=== PATIENT | male | born 1935 | race African-American/Black ===

== ENCOUNTER 2017-06-18 09:15 | Inpatient (IN) | payer MEDICAID, MEDICARE ==
[~2017-06-18] VITALS: Ht 172.7 cm; Wt 81.2 kg
[2017-06-18] VITALS (26 sets, daily range): BP systolic 50–124; BP diastolic 30–78
[~2017-06-18 09:15] MED LIST: Lidocaine 1% MPF 10mg/ml 5ml ONE
[2017-06-18] MEDS ORDERED: Zemuron 50mg/5ml Inj IV ONE (09:21)
[2017-06-18] MEDS ORDERED: Zosyn 2.25gm inj IV ONE (09:30)
[2017-06-18] MEDS ORDERED: MIRALAX17 G2 ORAL (09:42)
[2017-06-18] MEDS ORDERED: METOPROLOL TART25 MG ORAL (09:42)
[2017-06-18] MEDS ORDERED: NEPHROVITE1 TAB ORAL (09:42)
[2017-06-18] MEDS ORDERED: PRO-STAT RENAL30 ML PO (09:42)
[2017-06-18 09:45] LABS: HEMOGLOBIN 10.2 G/DL (14.2-18.0); MEAN CORPUSCULAR VOLUME 88 FL (80-99); PLATELET COUNT 237 K/UL (150-450); RED BLOOD COUNT 3.84 M/UL (4.70-6.10); RED CELL DISTRIBUTION WIDTH 16.4 % (11.6-14.8); WHITE BLOOD COUNT 9.2 K/UL (4.8-10.8)
[2017-06-18] MEDS ORDERED: Sodium Bicarbonate 50ml Carp IV ONE (09:45)
[2017-06-18] MEDS ORDERED: Sodium Polystyrene Sulfonate Enema RECTAL ONE (09:45)
[2017-06-18] MEDS ORDERED: DOPamine 400mg/250ml 250 ML IV SCH (09:45)
--- NOTE | 2017-06-18 09:52 | Diagnostic Imaging Report ---
Indication: Shortness of breath Technique: XRAY Chest 1v Comparison: 09/22/2008 Findings: Endotracheal tube has its tip approximately 3 cm above the rodrigo. Heart size and mediastinal contours within normal limits. Atherosclerotic calcifications noted in the aortic arch. There is a small left pleural effusion with left basilar atelectasis/consolidation. Vertical densities noted in the right lung likely related to skinfold. There is slight lucency in the right costophrenic sulcus and a small basilar pneumothorax is not entirely excluded. Repeat exam recommended. Impression: Satisfactory endotracheal intubation. Small left pleural effusion with left basilar atelectasis/consolidation. Lucency in the right costophrenic sulcus. Small basilar pneumothorax not entirely excluded. Repeat exam recommended. Discussed with treating ER physician Dr. Benavidez via telephone conversation 06/18/2017, 9:45 AM
--- NOTE | 2017-06-18 09:52 | Emergency Room Report ---
History of Present Illness General Chief Complaint: Altered Level of Consciousness Source: EMS (OXANA JUAN D.O.) Present Illness HPI Patient presents by paramedics from nursing facility patient was found to be hypotensive And in acute respiratory distress Upon arrival the patient is contracted Nonverbal Is in acute respiratory distress with tachypnea and audible rhonchi accessory muscle use with retractions Patient himself is nonverbal History of present illness is significantly limited Call to the nursing facility reveals full CODE STATUS however no obvious deformities in the chart Paramedics were summoned this morning and the patient was found to be hypoxic And hypotensive patient was reported to be due for his dialysis today (OXANA JUAN D.O.) Allergies: Coded Allergies: No Known Allergies (Unverified , 06/18/17) Patient History Limited by: medical condition Past Medical History: see triage record Pertinent Family History: unable to obtain Reviewed Nursing Documentation: PMH: Agreed, PSxH: Agreed (OXANA JUAN D.O.) Nursing Documentation-PMH Hx Diabetes: Yes Hx Dialysis: Yes (OXANA JUAN D.O.) Review of Systems All Other Systems: limited - Other than the ones mentioned in the history of present illness all others are reviewed however they do stay limited due to the patient's mental status (OXANA JUAN D.O.) Physical Exam Vital Signs Date Time Temp Pulse Resp B/P (MAP) Pulse Ox O2 Delivery O2 Flow Rate FiO2 06/18/17 09:11 110 40 62/38 100 Non-Rebreather 06/18/17 09:15 15.0 Sp02 EP Interpretation: reviewed, normal General Appearance: severe distress - Tachypneic, and respiratory distress/ impending failure, retractions Head: normocephalic, atraumatic Eyes: bilateral eye PERRL ENT: other - A dentulous, dry mucosa Neck: supple Respiratory: accessory muscle use, crackles - Diffusely audible, wheezing Cardiovascular #1: no edema, no gallop, tachycardia Gastrointestinal: non tender, soft, no mass, other - Previous surgical scar on the right lower abdomen possible renal transplant Musculoskeletal: other - Patient contracted upper and lower extremity does not follow command Neurologic: other - Significantly decreased GCS patient not verbal, appears to make subtle movements with physical stimuli however has no purposeful not verbal , Skin: other - Dialysis catheter left groin, chronic appearing skin breakdown around the genital region Lymphatic: no adenopathy (OXANA JUAN.Cherelle) Procedures Critical Care Time Critical Care Time 50 minutes for initial critical status, findings concerning for life- threatening pathology, not including any procedural time (OXANA JUAN.Cherelle) Central Line Central Line : Consent: Emergent Central Line Lumen: triple Maximal Sterile Barrier Tech: yes cap, yes mask, yes sterile gown, yes sterile gloves, yes large sterile sheet, yes hand hygiene, yes chlorhexidine prep Central Line Postion: femoral (R) Anesthesia: Lidocaine cc's of anesthesia: 2 Complications: none Central Line Post Position: sutured Attempts: One Patient Tolerated: Well Complications: None (OXANA JUAN.Cherelle) Intubation Intubation : Consent: Emergent Intubation Method: orotracheal Tube Size (cm): 8.0 Medications: Rocuronium Breath Sounds after Intubation: equal Intubation Complications: no complications Progress/Xray Impression: refer to x-ray section Attempts: One Patient Tolerated: Well Complications: None (OXANA JUAN.Cherelle) Medical Decision Making Diagnostic Impression: Primary Impression: Respiratory failure Additional Impressions: Septic shock Renal failure ER Course Patient presents in acute distress Requiring emergent airway intubation Multiple differentials are considered, including but not limited to sepsis, septic shock aspiration pneumonia Patient's blood work reveals normal potassium Patient received boluses of IV hydration Lactic acid is elevated and patient remained hypotensive Requiring pressors Please note that the patient has had repeat evaluation Showing appropriate skin turgor Sepsis reexamination Time:12:30 VS refer to nursing note cvs: RRR respiratory: improved respiration peripheral pulses: 2+radial cap refill:<2 seconds skin exam: warm, dry, not mottled Please note that after initial attempt of reaching the patient's primary physician Dr nina, his information technology coordinator physician did call back, he was requesting a physician who is also out of town and did not have any further input on admitting physician. We did attempt to initially wait to be given any other name however we did not receive a phone call back. Patient's critical ICU admission and in order to prevent any delay in admission patient was admitted to information technology coordinator panelist, Labs Test 06/18/17 09:20 06/18/17 10:55 06/18/17 11:15 White Blood Count 9.2 K/UL (4.8-10.8) Red Blood Count 3.84 M/UL (4.70-6.10) Hemoglobin 10.2 G/DL (14.2-18.0) Hematocrit 34.0 % (42.0-52.0) Mean Corpuscular Volume 88 FL (80-99) Mean Corpuscular Hemoglobin 26.5 PG (27.0-31.0) Mean Corpuscular Hemoglobin Concent 30.0 G/DL (32.0-36.0) Red Cell Distribution Width 16.4 % (11.6-14.8) Platelet Count 237 K/UL (150-450) Mean Platelet Volume 7.4 FL (6.5-10.1) Neutrophils (%) (Auto) % (45.0-75.0) Lymphocytes (%) (Auto) % (20.0-45.0) Monocytes (%) (Auto) % (1.0-10.0) Eosinophils (%) (Auto) % (0.0-3.0) Basophils (%) (Auto) % (0.0-2.0) Differential Total Cells Counted 100 Neutrophils % (Manual) 63 % (45-75) Lymphocytes % (Manual) 9 % (20-45) Monocytes % (Manual) 8 % (1-10) Eosinophils % (Manual) 0 % (0-3) Basophils % (Manual) 0 % (0-2) Band Neutrophils 20 % (0-8) Platelet Estimate Adequate Platelet Morphology Normal Hypochromasia 1+ Anisocytosis 1+ Prothrombin Time 13.1 SEC (9.30-11.50) Prothromb Time International Ratio 1.2 (0.9-1.1) Activated Partial Thromboplast Time 33 SEC (23-33) Sodium Level 137 MMOL/L (136-145) Potassium Level 3.9 MMOL/L (3.5-5.1) Chloride Level 98 MMOL/L (98-107) Carbon Dioxide Level 27 MMOL/L (21-32) Anion Gap 12 mmol/L (5-15) Blood Urea Nitrogen 51 mg/dL (7-18) Creatinine 4.4 MG/DL (0.55-1.30) Estimat Glomerular Filtration Rate mL/min (>60) Glucose Level 137 MG/DL (74-106) Lactic Acid Level 4.20 mmol/L (0.66-2.22) 4.90 mmol/L (0.66-2.22) Calcium Level 8.4 MG/DL (8.5-10.1) Phosphorus Level 3.1 MG/DL (2.5-4.9) Magnesium Level 2.2 MG/DL (1.8-2.4) Total Bilirubin 0.9 MG/DL (0.2-1.0) Aspartate Amino Transf (AST/SGOT) 90 U/L (15-37) Alanine Aminotransferase (ALT/SGPT) 49 U/L (12-78) Alkaline Phosphatase 259 U/L (46-116) Total Creatine Kinase 2327 U/L (26-308) Creatine Kinase MB 42.3 NG/ML (0.0-3.6) Creatine Kinase MB Relative Index 1.8 Troponin I 0.111 ng/mL (0.000-0.056) Pro-B-Type Natriuretic Peptide 4927 pg/mL (0-125) Total Protein 7.9 G/DL (6.4-8.2) Albumin 1.8 G/DL (3.4-5.0) Globulin 6.1 g/dL Albumin/Globulin Ratio 0.3 (1.0-2.7) Lipase 48 U/L (73-393) Arterial Blood pH 7.476 (7.350-7.450) Arterial Blood Partial Pressure CO2 33.8 mmHg (35.0-45.0) Arterial Blood Partial Pressure O2 386.9 mmHg (75.0-100.0) Arterial Blood HCO3 24.4 mmol/L (22.0-26.0) Arterial Blood Oxygen Saturation 99.5 % (92.0-98.0) Arterial Blood Base Excess 1.1 Jonse Test Positive (OXANA JUAN.OEdwige) ER Course Patient already admitted Respiratory failure, intubated, septic shock, on dopamine Tachycardic to 150, hypotensive systolic 80 Phenylephrine drip started (Kobi Meredith M.D.) Rhythm Strip Diag. Results EP Interpretation: yes Rate: 105 Rhythm: no PVC's, no ectopy, other - sinus tach (OXANA JUAN D.O.) Chest X-Ray Diagnostic Results Chest X-Ray Diagnostic Results #1: Chest X-Ray Ordered: Yes # of Views/Limited/Complete: 1 View Indication: Shortness of Breath EP Interpretation: Yes Interpretation: other - ET tube appropriately placed, left-sided effusion, heart size normal, questionable right lower lobe pneumothorax Impression: Other - left lower lobe effusion Electronically Signed by: Oxana Juan DO Chest X-Ray Diagnostic Results #2: Chest X-Ray Ordered: Yes # of Views/Limited/Complete: 1 View Indication: Shortness of Breath EP Interpretation: Yes Interpretation: other - Right lower lobe, appears appropriate does not show obvious pneumothorax ET tube appropriate, heart size normal, Impression: Other - Left lower lobe effusion Electronically Signed by: Oxana Juan DO (OXANA JUAN D.O.) Last Vital Signs Date Time Temp Pulse Resp B/P (MAP) Pulse Ox O2 Delivery O2 Flow Rate FiO2 06/18/17 09:15 103 46 62/38 98 Non-Rebreather 15.0 Status: improved (OXANA JUAN D.O.) Disposition: ADMITTED INPATIENT Condition: Critical OXANA JUAN D.O. Jun 18, 2017 09:52 Kobi Meredith M.D. Jun 18, 2017 18:15
[2017-06-18 09:53] LABS: INR 1.2 (0.9-1.1)
[2017-06-18] MEDS ORDERED: SENNA176 MG/5 M PO (09:57)
[2017-06-18] MEDS ORDERED: ACETAMINOPHEN325 M1 ORAL (09:57)
[2017-06-18] MEDS ORDERED: QUETIAPINE FUMA50 MG ORAL (09:57)
[2017-06-18] MEDS ORDERED: Lidocaine 1% MPF 10mg/ml 5ml IM ONE (10:15)
[2017-06-18 10:18] LABS: ANION GAP 12 mmol/L (5-15); BLOOD UREA NITROGEN 51 mg/dL (7-18); CALCIUM 8.4 MG/DL (8.5-10.1); CARBON DIOXIDE 27 MMOL/L (21-32); CHLORIDE 98 MMOL/L (98-107); CREATININE 4.4 MG/DL (0.55-1.30); POTASSIUM 3.9 MMOL/L (3.5-5.1); SODIUM 137 MMOL/L (136-145)
[2017-06-18 10:29] LABS: ALANINE AMINOTRANSFERASE 49 U/L (12-78); ALBUMIN 1.8 G/DL (3.4-5.0); ALBUMIN/GLOBULIN RATIO 0.3 (1.0-2.7); ALKALINE PHOSPHATASE 259 U/L (46-116); ASPARTATE AMINO TRANSFERASE 90 U/L (15-37); BILIRUBIN,TOTAL 0.9 MG/DL (0.2-1.0); CKMB 42.3 NG/ML (0.0-3.6); CREATINE KINASE 2327 U/L (26-308); PHOSPHORUS 3.1 MG/DL (2.5-4.9)
[2017-06-18] MEDS ORDERED: LORazepam Inj 2mg/ml 1ml IV ONE (10:30)
--- NOTE | 2017-06-18 10:44 | Diagnostic Imaging Report ---
Indication: Dyspnea. Question small basilar pneumothorax. Technique: XRAY Chest 1v Comparison: Earlier the same day. Findings: Endotracheal tube tip above the level the rodrigo. Persistent small left pleural effusion with patchy left basilar atelectasis/consolidation. There is no definite pneumothorax. Multiple nodular densities in the right lower lung likely representing calcified granulomas. A 7.9 mm low density in the right lower lung likely represents a nipple shadow. Repeat exam with nipple markers can be obtained for definitive evaluation. Impression: No definite pneumothorax. Unchanged left pleural effusion and streaky left basilar atelectasis/consolidation. A 7.9 mm round density in the right lower lung likely represents a nipple shadow. Repeat exam with nipple markers can be obtained for definitive evaluation. Multiple calcified granulomas noted in the right lower lung.
[2017-06-18] MEDS ORDERED: Phenylephrine 100 MG in NS 240 ML IV SCH (18:15)
[2017-06-18] MEDS ORDERED: NS 275 ML ONE (18:18)
[2017-06-18] MEDS ORDERED: Tubing IV Cassette IV ONE (18:19)
[2017-06-18] MEDS ORDERED: Phenylephrine 10mg/ml 5ml vial IV ONE (18:19)
[2017-06-18] MEDS: DOPamine 400mg/250ml 250 ML IV SCH (21:34)
[2017-06-18] MEDS: Phenylephrine 50 MG in D5W 245 ML IV SCH (21:35)
[2017-06-18] MEDS: Heparin 5000 units/ml inj SUBQ SCH (21:40)
[2017-06-18] MEDS: Acetaminophen 650 MG SUPP RECTAL PRN (23:14)
[2017-06-18] MEDS: Albuterol/Ipratropium 3ml neb HHN SCH ×2 (23:25→23:27)
[2017-06-19] VITALS (77 sets, daily range): BP systolic 48–150; BP diastolic 25–111
[2017-06-19] MEDS: Phenylephrine 50 MG in D5W 245 ML IV SCH (02:29)
[2017-06-19] MEDS ORDERED: Vancomycin 1250mg/D5W 250ml IVPB ONE (03:00)
[2017-06-19] MEDS ORDERED: Sodium Chloride 500ML 500 ML IV ONE (03:00)
[2017-06-19] MEDS: Albuterol/Ipratropium 3ml neb HHN SCH ×6 (03:00→23:50)
[2017-06-19] MEDS ORDERED: Zosyn 3.375gm inj ONE (03:06)
[2017-06-19] MEDS: Piperacillin/Tazobactam 3.375 GM in D5W 55 ML IVPB SCH ×2 (03:09→09:01)
[2017-06-19] MEDS ORDERED: Phenylephrine 10mg/ml 5ml vial IV ONE (03:27)
[2017-06-19] MEDS: Phenylephrine 100 MG in NS 240 ML IV SCH ×3 (03:31→18:52)
--- NOTE | 2017-06-19 03:45 | History and Physical Report ---
DATE OF ADMISSION: 06/18/2017 REASON FOR ADMISSION: Respiratory failure. HISTORY OF PRESENT ILLNESS: This is an male aged 82, who resides at a [facility] facility. He was transported to the emergency room because of hypotension and respiratory distress. He is nonverbal and was noted to have extensive, severe dyspnea on arrival requiring intubation and initiation of mechanical ventilation. Marginal blood pressure was recorded as well with 60/40. He was given several boluses of fluid, but failed to improve and subsequently pressors have been initiated. PAST MEDICAL HISTORY: End-stage renal disease, type 2 diabetes mellitus, cerebrovascular accident with right hemiparesis. ALLERGIES: None known. SOCIAL HISTORY: Not obtainable. FAMILY HISTORY: Not known. REVIEW OF SYSTEMS: Cannot obtain review of systems at this time. PHYSICAL EXAMINATION: VITAL SIGNS: Presently, blood pressure is 70/30, heart rate 110, respiratory rate 26. HEENT: Temporal wasting. Edentulous. Dry mucous membranes. Orally intubated. NECK: Supple. LUNGS: With coarse breath sounds and rhonchi. CARDIAC: Regular rhythm. Rapid rate. Normal S1, S2 with no appreciated murmur. ABDOMEN: Soft, nontender. EXTREMITIES: With no edema. 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 Dialysis catheter in the left groin. NEUROLOGIC: Right hemiparesis. LABORATORY DATA: Lactic acid 4.2, BUN 51, creatinine 4.4, potassium 3.9. Troponin 0.111. Albumin 1.8. ABG, pH 7.40, pCO2 35, pO2 94. White count 9.2, hemoglobin 10.2. IMPRESSION: 1. Acute respiratory failure. 2. Hypoxia. 3. Healthcare-acquired pneumonia. 4. Dysphagia. 5. 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 6. Acute myocardial ischemia. 7. Shock. 8. Hypovolemia. 9. Sepsis. 10. Type 2 diabetes mellitus. 11. Decubitus. 12. Critical and guarded. PLAN: 1. On pressor support. 2. Hemodialysis without ultrafiltration at this time. 3. Broad-spectrum antibiotics. 4. Ventilator support. 5. Bronchodilators. 6. DVT and stress ulcer prophylaxis. 7. Skin care. 8. Pulmonary and infectious disease consultations. Gurdeep Harvey M.D. DR: Otoniel JOB#: [id number] CC:
[2017-06-19 07:29] LABS: HEMATOCRIT 35.8 % (42.0-52.0); HEMOGLOBIN 10.7 G/DL (14.2-18.0); MEAN CORPUSCULAR VOLUME 91 FL (80-99); PLATELET COUNT 159 K/UL (150-450); RED BLOOD COUNT 3.93 M/UL (4.70-6.10); RED CELL DISTRIBUTION WIDTH 17.2 % (11.6-14.8); WHITE BLOOD COUNT 11.1 K/UL (4.8-10.8)
[2017-06-19 07:57] LABS: ALANINE AMINOTRANSFERASE 78 U/L (12-78); ALBUMIN 1.4 G/DL (3.4-5.0); ALBUMIN/GLOBULIN RATIO 0.2 (1.0-2.7); ALKALINE PHOSPHATASE 210 U/L (46-116); ANION GAP 23 mmol/L (5-15); ASPARTATE AMINO TRANSFERASE 194 U/L (15-37); BILIRUBIN,TOTAL 1.6 MG/DL (0.2-1.0); BLOOD UREA NITROGEN 55 mg/dL (7-18); CALCIUM 7.8 MG/DL (8.5-10.1); CARBON DIOXIDE 14 MMOL/L (21-32); CHLORIDE 101 MMOL/L (98-107); CREATININE 4.7 MG/DL (0.55-1.30); POTASSIUM 4.7 MMOL/L (3.5-5.1); SODIUM 138 MMOL/L (136-145)
[2017-06-19 07:59] LABS: BILIRUBIN,DIRECT 0.5 MG/DL (0.0-0.3)
[2017-06-19] MEDS: Heparin 5000 units/ml inj SUBQ SCH ×2 (08:48→20:59)
--- NOTE | 2017-06-19 10:28 | Diagnostic Imaging Report ---
Indication: Shortness of breath Technique: XRAY Chest 1v. Comparison: 06/18/2017 Findings: The cardiomediastinal silhouette is unchanged. No new infiltrates are identified. Impression: No significant change from prior examination.
--- NOTE | 2017-06-19 12:41 | Consultation ---
Consult Note Assessment/Plan dict resp failure shock renal failure prognosis poor PEG MARTINEZ Jun 19, 2017 12:41
[2017-06-19] MEDS ORDERED: Sodium Bicarbonate 50ml Carp IV ONE (13:10)
[2017-06-19 14:28] LABS: BASOPHILS % (AUTO) 0.4 % (0.0-2.0); EOSINOPHILS % (AUTO) 0.2 % (0.0-3.0); HEMATOCRIT 32.4 % (42.0-52.0); HEMOGLOBIN 9.8 G/DL (14.2-18.0); LYMPHOCYTES % (AUTO) 8.9 % (20.0-45.0); MEAN CORPUSCULAR VOLUME 88 FL (80-99); MONOCYTES % (AUTO) 10.2 % (1.0-10.0); NEUTROPHILS % (AUTO) 80.4 % (45.0-75.0); PLATELET COUNT 152 K/UL (150-450); RED BLOOD COUNT 3.66 M/UL (4.70-6.10); RED CELL DISTRIBUTION WIDTH 17.1 % (11.6-14.8); WHITE BLOOD COUNT 11.4 K/UL (4.8-10.8)
[2017-06-19] MEDS ORDERED: Heparin Sod 1000 units/ml 10ml IV ONE (14:45)
[2017-06-19] MEDS ORDERED: Heparin Sod 1000 units/ml 10ml IV PRN (15:00)
[2017-06-19 15:11] LABS: ANION GAP 24 mmol/L (5-15); BLOOD UREA NITROGEN 62 mg/dL (7-18); CALCIUM 7.6 MG/DL (8.5-10.1); CARBON DIOXIDE 15 MMOL/L (21-32); CHLORIDE 103 MMOL/L (98-107); CREATININE 4.8 MG/DL (0.55-1.30); POTASSIUM 4.7 MMOL/L (3.5-5.1); SODIUM 142 MMOL/L (136-145)
[2017-06-19] MEDS: Zosyn 2.25 gm in D5W 55ml IV SCH ×2 (15:27→23:46)
--- NOTE | 2017-06-19 16:16 | Consultation ---
Consult Note Assessment/Plan ephrology consult dictated # [id number] JEAN-CLAUDE AGUIRRE Jun 19, 2017 16:16
--- NOTE | 2017-06-19 16:30 | Consultation ---
DATE OF CONSULTATION: 06/19/2017 INFECTIOUS DISEASES CONSULTATION CONSULTING PHYSICIAN: Cliff Chaney M.D. ATTENDING/REFERRING PHYSICIAN: Gurdeep Harvey M.D. REASON FOR CONSULTATION: Septic shock. HISTORY OF PRESENTING ILLNESS: This is an 82-year-old gentleman who was transferred from a senior care facility with hypotension and respiratory distress. He was intubated and he has been admitted to the ICU. An infectious diseases consultation has been obtained for antibiotics. PAST MEDICAL HISTORY: 1. History of diabetes. 2. Renal failure. 3. History of CVA with right hemiparesis. SOCIAL HISTORY: Unknown. FAMILY HISTORY: Unknown. REVIEW OF SYSTEMS: Unable to obtain currently. MEDICATIONS: As an inpatient, the patient is on chlorhexidine gluconate, Prevacid, phenylephrine, IV vancomycin, Zosyn, albuterol, subcutaneous heparin, Tylenol, dopamine. ALLERGIES: No known drug allergies. PHYSICAL EXAMINATION: VITAL SIGNS: Temperature of 97.4, T-max of 99.6, pulse of 97, respiratory rate 26, blood pressure 107/95, O2 saturation of 100%. HEENT: Pupils equally reactive to light and accommodation. Mouth appears clean without thrush. The patient is intubated. NECK: Supple. No adenopathy. No JVD. CARDIOVASCULAR: Regular rate and rhythm. No murmurs. LUNGS: Clear to auscultation bilaterally. No crackles. No wheezes. ABDOMEN: Soft, nontender. No organomegaly. EXTREMITIES: No cyanosis, no clubbing, no edema. LABORATORY DATA: White count of 11.1, hemoglobin 10.7, hematocrit 35.8, MCV 91, platelet count of 159,000 with neutrophils of 58%. Sodium 138, potassium 4.7, chloride 101, bicarbonate 14, BUN 55, creatinine 4.7, glucose 93, calcium 7.8. Total bilirubin 1.60, direct bilirubin 0.5, AST 194, ALT 78, alkaline phosphatase 210. Troponin 0.09. Total protein 7.2, albumin 1.4. Lipase of 48. Sputum cultures are pending. Wound cultures are pending. Nasal swab was negative for influenza A and B. Chest x-ray showing no new infiltrate. On 06/18/2017, chest x-ray showed left-sided pleural effusion with left base atelectasis or consolidation. ASSESSMENT: 1. This is an 82-year-old gentleman with history of renal failure and diabetes, who comes in with hypotension and was found to have pneumonia. 2. Respiratory failure. 3. Diabetes. 4. Renal failure. 5. Cerebrovascular accident. PLAN: 1. Continue vancomycin and Zosyn. 2. We will follow up cultures. 3. We will order sputum for Gram stain and culture. 4. We will order blood cultures. 5. We will follow up cultures and adjust antibiotics accordingly. I would like to thank, Dr. Harvey, for this consultation. Cliff Chaney M.D. DR: Lawrence JOB#: [id number] CC: Gurdeep Harvey M.D.
[2017-06-19] MEDS: NovoLOG Insulin Flexpen SUBQ SCH ×2 (18:00→23:44)
[2017-06-19] MEDS: Aspirin Baby 81mg NG SCH (18:51)
--- NOTE | 2017-06-19 19:16 | Cardiology Report ---
APPROVED REPORT EKG Measurement Heart [id number] Sinus tachycardia Possible Left atrial enlargement Left axis deviation Right bundle branch block Possible Lateral infarct, age undetermined Inferior infarct, age undetermined Abnormal ECG
--- NOTE | 2017-06-19 20:15 | Consultation ---
DATE OF CONSULTATION: 06/19/2017 PULMONARY CONSULTATION CONSULTING PHYSICIAN: Howie Crowder M.D. HISTORY OF PRESENT ILLNESS: The patient is an 82-year-old man, who comes to the hospital emergency department by paramedics from a nursing facility. He was in respiratory distress, was hypotensive, and the paramedics were called. In the emergency department, he did not respond to fluids and intubation was required for respiratory failure. He was transferred to intensive care unit. I was called to see him in consultation. PAST MEDICAL HISTORY: End-stage renal disease, diabetes, and stroke with right hemiparesis. He cannot provide any history due to being unresponsive. He is on dialysis via a left tunneled dialysis catheter. He eat by mouth feeding tube. MEDICATIONS: Reviewed. He is currently on vasopressors for hypotension and on broad-spectrum antibiotics. ALLERGIES: None. REVIEW OF SYSTEMS: Cannot be obtained. PHYSICAL EXAMINATION: GENERAL: The patient is unresponsive. VITAL SIGNS: Blood pressure 79/38, heart rate 110, in sinus tachycardia, respirations are 26 on ventilator support. He is in respiratory distress. Temperature was 102 last night. HEENT: The head shows temporal muscle wasting. He has an orotracheal tube in place. CHEST: Few rhonchi. CARDIAC: Rhythm is regular. ABDOMEN: Soft and nontender. EXTREMITIES: No edema. SKIN: There is a right subclavian intravenous catheter and left subclavian dialysis catheter. LABORATORY AND DIAGNOSTIC DATA: Laboratory studies showed lactic acidosis, renal failure, and anemia. Chest x-ray shows no acute pneumonia. IMPRESSIONS: 1. Respiratory failure. 2. Sepsis with shock. 3. Possible dialysis catheter sepsis; no evidence of pneumonia, urinalysis is pending. 4. Stroke with dementia and right hemiparesis. 5. Diabetes. PLAN: The patient will continue on vasopressors. We will add Levophed as he remains hypotensive. Ventilator support will be continued as well as antibiotics. His prognosis is guarded. Howie Crowder M.D. DR: Sandra JOB#: [id number] CC: Lili Mccarty M.D. ; FAX#: [phone]
[2017-06-19] MEDS: DOPamine 400mg/250ml 250 ML IV SCH (20:45)
[2017-06-19] MEDS: Dyna-Hex 2% Top Sol 2oz TOPIC SCH (20:58)
--- NOTE | 2017-06-19 21:00 | Progress Note ---
DATE: 06/19/2017 CARDIOLOGY PROGRESS NOTE SUBJECTIVE: The patient's condition remains critical. He is in the intensive care unit. He requires double pressors at maximal doses to maintain perfusion pressures. Blood cultures were positive / for Gram-positive cocci. OBJECTIVE: VITAL SIGNS: Blood pressure 98/60, heart rate 96, respiratory rate 20, and afebrile. LUNGS: Bilateral breath sounds. Scattered rhonchi. HEART: Regular rhythm and rate. Normal S1, S2. ABDOMEN: Soft. EXTREMITIES: No edema. Wound noted. LABORATORY AND DIAGNOSTIC DATA: Chest x-ray revealed no acute process. White count 11.4, hemoglobin 9.8. Potassium . BUN 52, creatinine 4.8. Troponin 0.093. IMPRESSION: 1. Gram-positive cocci bacteremia. 2. Sepsis with shock. 3. End-stage renal disease, on hemodialysis. 4. Acute myocardial ischemia. 5. Severe protein-calorie malnutrition. 6. Lactic acidosis. 7. Respiratory failure. 8. Probable aspiration pneumonia. 9. Hypoxia. 10. Hypovolemia. 11. Type 2 diabetes. 12. Remains critical and guarded with poor prognosis. PLAN: 1. Continue pressors, taper as able. 2. Hemodialysis without ultrafiltration. 3. Antibiotics per Infectious Disease transportation consultant. 4. Await final cultures. 5. Continue ventilator support, not presently weanable. 6. Skin care. 7. DVT prophylaxis. 8. Antiplatelet therapy with aspirin. Gurdeep Harvey M.D. DR: Britton JOB#: [id number] CC:
--- NOTE | 2017-06-19 22:15 | Consultation ---
DATE OF CONSULTATION: 06/19/2017 NEPHROLOGY CONSULTATION CONSULTING PHYSICIAN: Boaz Perez M.D. REFERRING PHYSICIAN: Gurdeep Harvey M.D. REASON FOR CONSULTATION: The patient with end-stage renal disease, has presented with some shortness of breath and respiratory failure. HISTORY OF PRESENT ILLNESS: This is a very pleasant 82-year-old male, resident of a [facility] who was transported to the emergency room of [facility] because of hypotension and some respiratory distress. He and has had previous stroke, had to be intubated and has been on the ventilator. Blood pressure was very low in the range of 60/40. Chest x-ray has shown evidence of possible pneumonia and I have been asked to see him for hemodialysis. He is intubated at this point in time. He is not able to give me a very fruitful history. He has been started on intravenous antibiotics. He was also on pressor with phenylephrine, which has been discontinued now. PAST MEDICAL HISTORY: Significant for end-stage renal disease, type 2 diabetes mellitus, and cerebrovascular accident with right-sided hemiparesis. ALLERGIES: Not known. MEDICATIONS: His current medications include Zosyn 2.25 g IV q.8 h. He was given boluses of IV fluid. He was on dopamine, phenylephrine, and norepinephrine, which he has discontinued now. He is also on heparin 5000 units subcutaneous q.12 h., DuoNeb nebulizer q.6 h., insulin sliding scale, Prevacid 30 mg per G-tube daily, and vancomycin per pharmacy dosing. SOCIAL HISTORY: Unobtainable. He is a resident of a [facility] at this point. REVIEW OF SYSTEMS: Impossible. He is not able to give me much history. PHYSICAL EXAMINATION: GENERAL: This is a cachectic-looking gentleman, lying down in bed of the intensive care unit. VITAL SIGNS: Blood pressure 115/55, pulse of 105, respirations 30, and temperature 97.4. HEENT: Head is atraumatic. Eyes, pupils reactive to light. No evidence of papilledema. He has been intubated. ET tube in place. NECK: Supple. Jugular venous distention is low normal. No cervical adenopathy. No thyromegaly. HEART: Regular rhythm. No gallop. LUNGS: Clear to auscultation. ABDOMEN: Supple. Bowel sounds positive. No hepatosplenomegaly. EXTREMITIES: Lower extremity shows no cyanosis or clubbing. No pedal edema. NEUROLOGICAL: Cranial nerves are difficult to assess. He is lethargic right now on the ventilator. LABORATORY DATA: Showing sodium 142, potassium 4.7, chloride 103, carbon dioxide 16, BUN 62, creatinine 4.8, and glucose 71. Calcium 7.6. Troponin was 0.093. INR is 1.2. WBCs 11.4, hemoglobin is 9.8, hematocrit 32.4, and platelets 152. IMPRESSION: 1. Septic shock, which seems to be improving. 2. Probable underlying pneumonia. 3. End-stage renal disease, on hemodialysis. 4. Status post respiratory failure, now on the ventilator. 5. No signs of fluid overload at this point. PLAN: We will arrange for hemodialysis tomorrow. I agree with the IV antibiotics at this point and we need to work on weaning him off of the ventilator. Boaz Perez M.D. DR: VERO JOB#: [id number] CC:
[2017-06-20] VITALS (71 sets, daily range): BP systolic 60–129; BP diastolic 35–68
[2017-06-20] MEDS: Albuterol/Ipratropium 3ml neb HHN SCH ×6 (03:40→23:51)
[2017-06-20] MEDS: Phenylephrine 100 MG in NS 240 ML IV SCH ×2 (03:43→17:32)
[2017-06-20 05:49] LABS: HEMATOCRIT 30.2 % (42.0-52.0); HEMOGLOBIN 9.4 G/DL (14.2-18.0); MEAN CORPUSCULAR VOLUME 88 FL (80-99); PLATELET COUNT 132 K/UL (150-450); RED BLOOD COUNT 3.44 M/UL (4.70-6.10); RED CELL DISTRIBUTION WIDTH 16.5 % (11.6-14.8); WHITE BLOOD COUNT 8.3 K/UL (4.8-10.8)
[2017-06-20] MEDS: NovoLOG Insulin Flexpen SUBQ SCH ×4 (06:08→23:58)
[2017-06-20 06:30] LABS: ALANINE AMINOTRANSFERASE 167 U/L (12-78); ALBUMIN 1.5 G/DL (3.4-5.0); ALBUMIN/GLOBULIN RATIO 0.3 (1.0-2.7); ALKALINE PHOSPHATASE 169 U/L (46-116); ANION GAP 16 mmol/L (5-15); ASPARTATE AMINO TRANSFERASE 342 U/L (15-37); BILIRUBIN,TOTAL 1.9 MG/DL (0.2-1.0); BLOOD UREA NITROGEN 67 mg/dL (7-18); CALCIUM 7.6 MG/DL (8.5-10.1); CARBON DIOXIDE 22 MMOL/L (21-32); CHLORIDE 101 MMOL/L (98-107); POTASSIUM 3.9 MMOL/L (3.5-5.1); SODIUM 139 MMOL/L (136-145)
[2017-06-20 06:42] LABS: BILIRUBIN,DIRECT 1.4 MG/DL (0.0-0.3)
--- NOTE | 2017-06-20 07:32 | Cardiology Report ---
APPROVED REPORT EXAM: Two-dimensional and M-mode echocardiogram with Doppler and color Doppler. INDICATION Ejection Fraction M-Mode DIMENSIONS IVSd1.1 (0.7-1.1cm)Left Atrium (MM)2.8 (1.6-4.0cm) LVDd4.8 (3.5-5.6cm)Aortic Root2.9 (2.0-3.7cm) PWd0.9 (0.7-1.1cm)Aortic Cusp Exc.1.5 (1.5-2.0cm) LVDs3.9 (2.5-4.0cm) PWs1.0 cm Technically limited and difficult study due to poor acoustical windows. Patient on vent. Normal left ventricular chamber size. Global left ventricular hypokinesis. Basal and mid anterior septal hypokinetic. Left ventricular ejection fraction estimated to be 45-50% to extend visualized. No evidence of left ventricular hypertrophy. No evidence of pericardial or pleural effusion. Focal aortic valve sclerosis with adequate cusp excursion. Thickened mitral valve leaflets with normal excursion. Mild mitral annulus and aortic root calcification. Pulmonic valve is well visualized. Normal tricuspid valve structure. IVC is normal in size and collapsible with respiration. A color flow and spectral Doppler study was performed and revealed: Mild tricuspid regurgitation. Tricuspid systolic velocities suggests peak right ventricular systolic pressure of 24 mmHg
--- NOTE | 2017-06-20 07:53 | Nephrology Progress Note ---
Assessment/Plan Problem List: (1) Healthcare-associated pneumonia (2) Malnutrition of moderate degree (3) End-stage renal disease (4) Respiratory failure (5) Septic shock Plan hd via cath, meds reviewed for eskd Subjective ROS Limited/Unobtainable: Yes Objective Objective Last 24 Hour Vital Signs Date Time Temp Pulse Resp B/P (MAP) Pulse Ox O2 Delivery O2 Flow Rate FiO2 06/20/17 07:30 90 19 108/68 100 Mechanical Ventilator 60 06/20/17 07:00 104/54 06/20/17 07:00 87 20 102/56 100 Mechanical Ventilator 60 06/20/17 06:45 87 20 104/54 100 Mechanical Ventilator 60 06/20/17 06:44 109/57 06/20/17 06:30 87 20 109/57 100 Mechanical Ventilator 60 06/20/17 06:15 88 20 127/62 100 Mechanical Ventilator 60 06/20/17 06:00 91 20 94/68 100 Mechanical Ventilator 60 06/20/17 06:00 94/68 06/20/17 05:45 91 20 94/68 100 Mechanical Ventilator 60 06/20/17 05:38 101 20 60 06/20/17 05:30 97 20 82/46 100 Mechanical Ventilator 60 06/20/17 05:15 102 20 76/49 100 Mechanical Ventilator 60 06/20/17 05:00 92 20 102/60 100 Mechanical Ventilator 60 06/20/17 05:00 85/46 06/20/17 04:45 92 20 101/58 100 Mechanical Ventilator 60 06/20/17 04:30 92 20 116/57 100 Mechanical Ventilator 60 06/20/17 04:15 92 20 92/61 100 Mechanical Ventilator 60 06/20/17 04:00 96 06/20/17 04:00 60 06/20/17 04:00 97/49 06/20/17 04:00 99.1 92 20 97/58 100 Mechanical Ventilator 60 06/20/17 03:50 101 21 96 Mechanical Ventilator 60 06/20/17 03:45 94 20 67/42 100 Mechanical Ventilator 60 06/20/17 03:43 95 86/54 06/20/17 03:40 94 29 99 Mechanical Ventilator 60 06/20/17 03:40 93 25 60 06/20/17 03:30 94 20 67/42 100 Mechanical Ventilator 60 06/20/17 03:15 81 20 126/61 100 Mechanical Ventilator 60 06/20/17 03:00 95 20 126/61 100 Mechanical Ventilator 60 06/20/17 03:00 96/46 06/20/17 02:45 96 20 94/58 100 Mechanical Ventilator 60 06/20/17 02:30 96 20 94/58 100 Mechanical Ventilator 60 06/20/17 02:15 98 20 91/57 100 Mechanical Ventilator 60 06/20/17 02:00 99 20 96/59 100 Mechanical Ventilator 60 06/20/17 02:00 96/59 06/20/17 01:45 101 20 92/63 100 Mechanical Ventilator 60 06/20/17 01:38 94 22 60 06/20/17 01:30 100 20 91/55 100 Mechanical Ventilator 60 06/20/17 01:15 99 20 88/52 100 Mechanical Ventilator 60 06/20/17 01:10 82/45 06/20/17 01:00 82/45 06/20/17 01:00 96 20 93/57 100 Mechanical Ventilator 60 06/20/17 00:45 95 20 82/48 100 Mechanical Ventilator 60 06/20/17 00:30 99 20 86/54 100 Mechanical Ventilator 60 06/20/17 00:15 100 20 86/54 100 Mechanical Ventilator 60 06/20/17 00:00 60 06/20/17 00:00 98.7 106 20 84/56 100 Mechanical Ventilator 60 06/20/17 00:00 93 06/20/17 00:00 87/44 06/20/17 00:00 92 20 96 Mechanical Ventilator 60 06/19/17 23:51 94 20 100 Mechanical Ventilator 60 06/19/17 23:50 94 20 60 06/19/17 23:45 107 20 73/54 100 Mechanical Ventilator 60 06/19/17 23:30 91 20 110/41 100 Mechanical Ventilator 60 06/19/17 23:15 92 20 83/41 100 Mechanical Ventilator 60 06/19/17 23:00 92 20 89/48 100 Mechanical Ventilator 60 06/19/17 23:00 87/40 06/19/17 22:45 92 20 84/47 100 Mechanical Ventilator 60 06/19/17 22:30 92 20 83/54 100 Mechanical Ventilator 60 06/19/17 22:15 91 20 86/47 100 Mechanical Ventilator 60 06/19/17 22:00 104/56 06/19/17 22:00 90 20 87/48 100 Mechanical Ventilator 60 06/19/17 21:45 90 20 93/56 100 Mechanical Ventilator 60 06/19/17 21:30 89 20 91/39 100 Mechanical Ventilator 60 06/19/17 21:15 89 20 70/52 100 Mechanical Ventilator 60 06/19/17 21:02 99 20 96 Mechanical Ventilator 60 06/19/17 21:00 82/46 06/19/17 21:00 88 20 82/46 100 Mechanical Ventilator 60 06/19/17 20:52 87 27 94 Mechanical Ventilator 60 06/19/17 20:51 86 20 60 06/19/17 20:45 88 20 82/46 100 Mechanical Ventilator 60 06/19/17 20:45 83/48 06/19/17 20:30 90 22 83/50 100 Mechanical Ventilator 60 06/19/17 20:29 83/48 06/19/17 20:15 91 23 81/50 100 Mechanical Ventilator 60 06/19/17 20:00 99.1 94 22 83/48 100 Mechanical Ventilator 60 06/19/17 20:00 60 06/19/17 20:00 86 06/19/17 19:45 91 23 99/53 100 Mechanical Ventilator 60 06/19/17 19:30 93 23 98/62 100 Mechanical Ventilator 60 06/19/17 19:15 90 28 121/59 100 Mechanical Ventilator 60 06/19/17 19:00 99.3 91 30 112/65 100 Mechanical Ventilator 60 06/19/17 19:00 112/65 06/19/17 18:52 93 88/54 06/19/17 18:45 90 28 88/54 100 Mechanical Ventilator 60 06/19/17 18:30 100 28 100/57 100 Mechanical Ventilator 60 06/19/17 18:00 96 20 98/60 100 Mechanical Ventilator 60 06/19/17 18:00 98/60 06/19/17 17:45 95 20 98/60 100 Mechanical Ventilator 60 06/19/17 17:30 98.7 97 20 118/61 100 Mechanical Ventilator 60 06/19/17 17:09 94 20 60 06/19/17 17:00 96 20 92/53 100 Mechanical Ventilator 60 06/19/17 17:00 92/53 06/19/17 17:00 98 20 104/56 100 Mechanical Ventilator 60 06/19/17 16:45 97 20 100/54 100 Mechanical Ventilator 60 06/19/17 16:30 98 20 104/56 100 Mechanical Ventilator 60 06/19/17 16:15 98 20 104/56 100 Mechanical Ventilator 60 06/19/17 16:00 99.3 99 20 112/66 100 Mechanical Ventilator 60 06/19/17 16:00 95 06/19/17 16:00 104/56 06/19/17 16:00 60 06/19/17 16:00 93 20 105/53 100 Mechanical Ventilator 60 06/19/17 15:30 94 30 150/74 100 Mechanical Ventilator 60 06/19/17 15:30 90 23 96 Mechanical Ventilator 60 06/19/17 15:30 91 23 65 06/19/17 15:28 69/48 06/19/17 15:20 79 27 94 Mechanical Ventilator 60 06/19/17 15:00 100 30 74/48 100 Mechanical Ventilator 60 06/19/17 14:30 101 30 66/44 100 Mechanical Ventilator 60 06/19/17 14:00 105 30 115/55 100 Mechanical Ventilator 60 06/19/17 13:30 101 32 75/57 100 Mechanical Ventilator 60 06/19/17 13:00 97 30 85/54 100 Mechanical Ventilator 65 06/19/17 12:51 102 27 65 06/19/17 12:30 102 25 77/54 100 Mechanical Ventilator 65 06/19/17 12:00 100 06/19/17 12:00 97.4 97 26 107/95 100 Mechanical Ventilator 65 06/19/17 12:00 65 06/19/17 11:30 98 25 72/50 100 Mechanical Ventilator 65 06/19/17 11:00 101 26 71/43 99 Mechanical Ventilator 65 06/19/17 11:00 102 30 65 06/19/17 11:00 100 30 100 Mechanical Ventilator 65 06/19/17 10:50 102 30 98 Mechanical Ventilator 65 06/19/17 10:30 102 29 74/36 99 Mechanical Ventilator 65 06/19/17 10:27 103 77/55 06/19/17 10:00 103 28 77/55 98 Mechanical Ventilator 65 06/19/17 09:30 99.1 104 30 76/48 100 Mechanical Ventilator 65 06/19/17 09:07 106 30 65 06/19/17 09:00 99.3 105 28 71/55 100 Mechanical Ventilator 65 06/19/17 08:30 104 28 62/44 100 Mechanical Ventilator 65 06/19/17 08:00 99.6 106 29 62/42 100 Mechanical Ventilator 65 06/19/17 08:00 106 06/19/17 08:00 65 Intake and Output 06/19/17 06/20/17 19:00 07:00 Intake Total 835.50 ml 998.5 ml Output Total 0 ml 0 ml Balance 835.50 ml 998.5 ml Intake Free Water 30 ml IV Total 725.50 ml 998.5 ml Other 80 ml Output Urine Total 0 ml 0 ml # Bowel Movements 2 1 Laboratory Tests 06/19/17 13:25: Lactic Acid Level 7.30H 06/19/17 13:35: White Blood Count 11.4H, Red Blood Count 3.66L, Hemoglobin 9.8L, Hematocrit 32.4L, Mean Corpuscular Volume 88, Mean Corpuscular Hemoglobin 26.8L, Mean Corpuscular Hemoglobin Concent 30.2L, Red Cell Distribution Width 17.1H, Platelet Count 152, Mean Platelet Volume 7.1, Neutrophils (%) (Auto) 80.4H, Lymphocytes (%) (Auto) 8.9L, Monocytes (%) (Auto) 10.2H, Eosinophils (%) (Auto) 0.2, Basophils (%) (Auto) 0.4, Sodium Level 142, Potassium Level 4.7, Chloride Level 103, Carbon Dioxide Level 15L, Anion Gap 24H, Blood Urea Nitrogen 62H, Creatinine 4.8H, Estimat Glomerular Filtration Rate , Glucose Level 71L, Calcium Level 7.6L 06/20/17 05:30: Lactic Acid Level 2.70H, White Blood Count 8.3, Red Blood Count 3.44L, Hemoglobin 9.4L, Hematocrit 30.2L, Mean Corpuscular Volume 88, Mean Corpuscular Hemoglobin 27.4, Mean Corpuscular Hemoglobin Concent 31.3L, Red Cell Distribution Width 16.5H, Platelet Count 132L, Mean Platelet Volume 6.1L, Neutrophils (%) (Auto) , Lymphocytes (%) (Auto) , Monocytes (%) (Auto) , Eosinophils (%) (Auto) , Basophils (%) (Auto) , Sodium Level 139, Potassium Level 3.9, Chloride Level 101, Carbon Dioxide Level 22, Anion Gap 16H, Blood Urea Nitrogen 67H, Creatinine 5.0H, Estimat Glomerular Filtration Rate , Glucose Level 142H, Calcium Level 7.6L, Neutrophils % (Manual) [Pending], Lymphocytes % (Manual) [Pending], Platelet Estimate [Pending], Platelet Morphology [Pending], Total Bilirubin 1.9H, Direct Bilirubin 1.4H, Aspartate Amino Transf (AST/SGOT) 342H, Alanine Aminotransferase (ALT/SGPT) 167H, Alkaline Phosphatase 169H, Troponin I 0.803H, Total Protein 6.8, Albumin 1.5L, Globulin 5.3, Albumin/Globulin Ratio 0.3L Height (Feet): 5 Height (Inches): 10.00 Weight (Pounds): 147 General Appearance: alert EENT: normal ENT inspection Neck: normal alignment Cardiovascular: regular rhythm Respiratory/Chest: rhonchi - bilaterally, other - vent Abdomen: non tender, soft Extremities: trace edema LEONORA HUI Jun 20, 2017 07:53
[2017-06-20] MEDS: Zosyn 2.25 gm in D5W 55ml IV SCH ×3 (08:07→23:55)
[2017-06-20] MEDS: Aspirin Baby 81mg NG SCH (08:07)
[2017-06-20] MEDS: Heparin 5000 units/ml inj SUBQ SCH ×2 (08:08→20:43)
[2017-06-20] MEDS ORDERED: Cathflo Alteplase 2mg Inj INJ STA (09:29)
--- NOTE | 2017-06-20 12:26 | Infectious Diseases Prog Note ---
Assessment/Plan Assessment/Plan antibiotics : vancomycin iv, zosyn A 1. gram positive sepsis 2. septic shock 3. respiratory failure 4. renal failure P 1. continue vancomycin iv, zosyn 2. will follow up cultures Subjective ROS Limited/Unobtainable: Yes Allergies: Coded Allergies: No Known Allergies (Unverified , 06/18/17) Objective Vital Signs Last 24 Hour Vital Signs Date Time Temp Pulse Resp B/P (MAP) Pulse Ox O2 Delivery O2 Flow Rate FiO2 06/20/17 12:00 60 06/20/17 12:00 98.2 89 19 120/60 100 Mechanical Ventilator 60 06/20/17 11:43 107/58 06/20/17 11:37 93 20 100 Mechanical Ventilator 60 06/20/17 11:30 91 20 117/58 100 Mechanical Ventilator 60 06/20/17 11:28 89 20 60 06/20/17 11:27 89 20 100 Mechanical Ventilator 60 06/20/17 11:00 89 2 109/58 100 Mechanical Ventilator 60 06/20/17 10:30 90 2 105/52 100 Mechanical Ventilator 60 06/20/17 10:00 109/52 06/20/17 10:00 90 19 109/52 100 Mechanical Ventilator 60 06/20/17 09:30 90 20 103/56 100 Mechanical Ventilator 60 06/20/17 09:00 90/70 06/20/17 09:00 87 20 106/57 100 Mechanical Ventilator 60 06/20/17 08:58 89 20 60 06/20/17 08:42 84 21 100 Mechanical Ventilator 60 06/20/17 08:34 86 20 100 Mechanical Ventilator 60 06/20/17 08:30 90 19 107/59 100 Mechanical Ventilator 60 06/20/17 08:00 98.6 88 19 79/47 100 Mechanical Ventilator 60 06/20/17 08:00 79/46 06/20/17 08:00 60 06/20/17 08:00 86 06/20/17 07:30 90 19 108/68 100 Mechanical Ventilator 60 06/20/17 07:00 104/54 06/20/17 07:00 87 20 102/56 100 Mechanical Ventilator 60 06/20/17 06:47 86 20 60 06/20/17 06:45 87 20 104/54 100 Mechanical Ventilator 60 06/20/17 06:44 109/57 06/20/17 06:30 87 20 109/57 100 Mechanical Ventilator 60 06/20/17 06:15 88 20 127/62 100 Mechanical Ventilator 60 06/20/17 06:00 91 20 94/68 100 Mechanical Ventilator 60 06/20/17 06:00 94/68 06/20/17 05:45 91 20 94/68 100 Mechanical Ventilator 60 06/20/17 05:38 101 20 60 06/20/17 05:30 97 20 82/46 100 Mechanical Ventilator 60 06/20/17 05:15 102 20 76/49 100 Mechanical Ventilator 60 06/20/17 05:00 92 20 102/60 100 Mechanical Ventilator 60 06/20/17 05:00 85/46 06/20/17 04:45 92 20 101/58 100 Mechanical Ventilator 60 06/20/17 04:30 92 20 116/57 100 Mechanical Ventilator 60 06/20/17 04:15 92 20 92/61 100 Mechanical Ventilator 60 06/20/17 04:00 96 06/20/17 04:00 60 06/20/17 04:00 97/49 06/20/17 04:00 99.1 92 20 97/58 100 Mechanical Ventilator 60 06/20/17 03:50 101 21 96 Mechanical Ventilator 60 06/20/17 03:45 94 20 67/42 100 Mechanical Ventilator 60 06/20/17 03:43 95 86/54 06/20/17 03:40 94 29 99 Mechanical Ventilator 60 06/20/17 03:40 93 25 60 06/20/17 03:30 94 20 67/42 100 Mechanical Ventilator 60 06/20/17 03:15 81 20 126/61 100 Mechanical Ventilator 60 06/20/17 03:00 95 20 126/61 100 Mechanical Ventilator 60 06/20/17 03:00 96/46 06/20/17 02:45 96 20 94/58 100 Mechanical Ventilator 60 06/20/17 02:30 96 20 94/58 100 Mechanical Ventilator 60 06/20/17 02:15 98 20 91/57 100 Mechanical Ventilator 60 06/20/17 02:00 99 20 96/59 100 Mechanical Ventilator 60 06/20/17 02:00 96/59 06/20/17 01:45 101 20 92/63 100 Mechanical Ventilator 60 06/20/17 01:38 94 22 60 06/20/17 01:30 100 20 91/55 100 Mechanical Ventilator 60 06/20/17 01:15 99 20 88/52 100 Mechanical Ventilator 60 06/20/17 01:10 82/45 06/20/17 01:00 82/45 06/20/17 01:00 96 20 93/57 100 Mechanical Ventilator 60 06/20/17 00:45 95 20 82/48 100 Mechanical Ventilator 60 06/20/17 00:30 99 20 86/54 100 Mechanical Ventilator 60 06/20/17 00:15 100 20 86/54 100 Mechanical Ventilator 60 06/20/17 00:00 60 06/20/17 00:00 98.7 106 20 84/56 100 Mechanical Ventilator 60 06/20/17 00:00 93 06/20/17 00:00 87/44 06/20/17 00:00 92 20 96 Mechanical Ventilator 60 06/19/17 23:51 94 20 100 Mechanical Ventilator 60 06/19/17 23:50 94 20 60 06/19/17 23:45 107 20 73/54 100 Mechanical Ventilator 60 06/19/17 23:30 91 20 110/41 100 Mechanical Ventilator 60 06/19/17 23:15 92 20 83/41 100 Mechanical Ventilator 60 06/19/17 23:00 92 20 89/48 100 Mechanical Ventilator 60 06/19/17 23:00 87/40 06/19/17 22:45 92 20 84/47 100 Mechanical Ventilator 60 06/19/17 22:30 92 20 83/54 100 Mechanical Ventilator 60 06/19/17 22:15 91 20 86/47 100 Mechanical Ventilator 60 06/19/17 22:00 104/56 06/19/17 22:00 90 20 87/48 100 Mechanical Ventilator 60 06/19/17 21:45 90 20 93/56 100 Mechanical Ventilator 60 06/19/17 21:30 89 20 91/39 100 Mechanical Ventilator 60 06/19/17 21:15 89 20 70/52 100 Mechanical Ventilator 60 06/19/17 21:02 99 20 96 Mechanical Ventilator 60 06/19/17 21:00 82/46 06/19/17 21:00 88 20 82/46 100 Mechanical Ventilator 60 06/19/17 20:52 87 27 94 Mechanical Ventilator 60 06/19/17 20:51 86 20 60 06/19/17 20:45 88 20 82/46 100 Mechanical Ventilator 60 06/19/17 20:45 83/48 06/19/17 20:30 90 22 83/50 100 Mechanical Ventilator 60 06/19/17 20:29 83/48 06/19/17 20:15 91 23 81/50 100 Mechanical Ventilator 60 06/19/17 20:00 99.1 94 22 83/48 100 Mechanical Ventilator 60 06/19/17 20:00 60 06/19/17 20:00 86 06/19/17 19:45 91 23 99/53 100 Mechanical Ventilator 60 06/19/17 19:30 93 23 98/62 100 Mechanical Ventilator 60 06/19/17 19:15 90 28 121/59 100 Mechanical Ventilator 60 06/19/17 19:00 99.3 91 30 112/65 100 Mechanical Ventilator 60 06/19/17 19:00 112/65 06/19/17 18:52 93 88/54 06/19/17 18:45 90 28 88/54 100 Mechanical Ventilator 60 06/19/17 18:30 100 28 100/57 100 Mechanical Ventilator 60 06/19/17 18:00 96 20 98/60 100 Mechanical Ventilator 60 06/19/17 18:00 98/60 06/19/17 17:45 95 20 98/60 100 Mechanical Ventilator 60 06/19/17 17:30 98.7 97 20 118/61 100 Mechanical Ventilator 60 06/19/17 17:09 94 20 60 06/19/17 17:00 96 20 92/53 100 Mechanical Ventilator 60 06/19/17 17:00 92/53 06/19/17 17:00 98 20 104/56 100 Mechanical Ventilator 60 06/19/17 16:45 97 20 100/54 100 Mechanical Ventilator 60 06/19/17 16:30 98 20 104/56 100 Mechanical Ventilator 60 06/19/17 16:15 98 20 104/56 100 Mechanical Ventilator 60 06/19/17 16:00 99.3 99 20 112/66 100 Mechanical Ventilator 60 06/19/17 16:00 95 06/19/17 16:00 104/56 06/19/17 16:00 60 06/19/17 16:00 93 20 105/53 100 Mechanical Ventilator 60 06/19/17 15:30 94 30 150/74 100 Mechanical Ventilator 60 06/19/17 15:30 90 23 96 Mechanical Ventilator 60 06/19/17 15:30 91 23 65 06/19/17 15:28 69/48 06/19/17 15:20 79 27 94 Mechanical Ventilator 60 06/19/17 15:00 100 30 74/48 100 Mechanical Ventilator 60 06/19/17 14:30 101 30 66/44 100 Mechanical Ventilator 60 06/19/17 14:00 105 30 115/55 100 Mechanical Ventilator 60 06/19/17 13:30 101 32 75/57 100 Mechanical Ventilator 60 06/19/17 13:00 97 30 85/54 100 Mechanical Ventilator 65 06/19/17 12:51 102 27 65 06/19/17 12:30 102 25 77/54 100 Mechanical Ventilator 65 Height (Feet): 5 Height (Inches): 10.00 Weight (Pounds): 147 HEENT: other - intubated Respiratory/Chest: lungs clear Cardiovascular: normal rate, regular rhythm, no gallop/murmur Abdomen: soft, non tender Extremities: no edema, other - right groin and left groin catheter Microbiology Date/Time Source Procedure Growth Status 06/19/17 13:25 Blood Blood Culture - Preliminary Resulted 06/18/17 09:20 Blood Blood Culture - Preliminary Staphylococcus Aureus Resulted 06/18/17 09:10 Blood Blood Culture - Preliminary Staphylococcus Aureus Resulted 06/18/17 22:00 Sputum Gram Stain - Final Resulted 06/18/17 22:00 Sputum Sputum Culture - Preliminary Resulted 06/18/17 13:55 Nasal Nares Influenza Types A,B Antigen (JOSE ALFREDO) - Final Complete 06/19/17 05:00 Ankle Left Gram Stain Pending Resulted 06/19/17 05:00 Ankle Left Wound Culture - Preliminary Resulted 06/18/17 20:30 Sacral Swab Gram Stain - Final Resulted 06/18/17 20:30 Wound Culture - Preliminary Gram Negative Bacillus 1 Resulted Laboratory Tests Test 06/19/17 13:25 06/19/17 13:35 06/20/17 05:30 06/20/17 07:45 Lactic Acid Level 7.30 mmol/L (0.66-2.22) H 2.70 mmol/L (0.66-2.22) H 2.60 mmol/L (0.66-2.22) H White Blood Count 11.4 K/UL (4.8-10.8) H 8.3 K/UL (4.8-10.8) Red Blood Count 3.66 M/UL (4.70-6.10) L 3.44 M/UL (4.70-6.10) L Hemoglobin 9.8 G/DL (14.2-18.0) L 9.4 G/DL (14.2-18.0) L Hematocrit 32.4 % (42.0-52.0) L 30.2 % (42.0-52.0) L Mean Corpuscular Volume 88 FL (80-99) 88 FL (80-99) Mean Corpuscular Hemoglobin 26.8 PG (27.0-31.0) L 27.4 PG (27.0-31.0) Mean Corpuscular Hemoglobin Concent 30.2 G/DL (32.0-36.0) L 31.3 G/DL (32.0-36.0) L Red Cell Distribution Width 17.1 % (11.6-14.8) H 16.5 % (11.6-14.8) H Platelet Count 152 K/UL (150-450) 132 K/UL (150-450) L Mean Platelet Volume 7.1 FL (6.5-10.1) 6.1 FL (6.5-10.1) L Neutrophils (%) (Auto) 80.4 % (45.0-75.0) H % (45.0-75.0) Lymphocytes (%) (Auto) 8.9 % (20.0-45.0) L % (20.0-45.0) Monocytes (%) (Auto) 10.2 % (1.0-10.0) H % (1.0-10.0) Eosinophils (%) (Auto) 0.2 % (0.0-3.0) % (0.0-3.0) Basophils (%) (Auto) 0.4 % (0.0-2.0) % (0.0-2.0) Sodium Level 142 MMOL/L (136-145) 139 MMOL/L (136-145) Potassium Level 4.7 MMOL/L (3.5-5.1) 3.9 MMOL/L (3.5-5.1) Chloride Level 103 MMOL/L (98-107) 101 MMOL/L (98-107) Carbon Dioxide Level 15 MMOL/L (21-32) L 22 MMOL/L (21-32) Anion Gap 24 mmol/L (5-15) H 16 mmol/L (5-15) H Blood Urea Nitrogen 62 mg/dL (7-18) H 67 mg/dL (7-18) H Creatinine 4.8 MG/DL (0.55-1.30) H 5.0 MG/DL (0.55-1.30) H Estimat Glomerular Filtration Rate mL/min (>60) mL/min (>60) Glucose Level 71 MG/DL (74-106) L 142 MG/DL (74-106) H Calcium Level 7.6 MG/DL (8.5-10.1) L 7.6 MG/DL (8.5-10.1) L Differential Total Cells Counted 100 Neutrophils % (Manual) 71 % (45-75) Lymphocytes % (Manual) 12 % (20-45) L Monocytes % (Manual) 3 % (1-10) Eosinophils % (Manual) 0 % (0-3) Basophils % (Manual) 0 % (0-2) Band Neutrophils 14 % (0-8) H Platelet Estimate Decreased L Platelet Morphology Normal Hypochromasia 1+ Anisocytosis 1+ Ferritin > 2000 NG/ML (8-388) H Total Bilirubin 1.9 MG/DL (0.2-1.0) H Direct Bilirubin 1.4 MG/DL (0.0-0.3) H Aspartate Amino Transf (AST/SGOT) 342 U/L (15-37) H Alanine Aminotransferase (ALT/SGPT) 167 U/L (12-78) H Alkaline Phosphatase 169 U/L (46-116) H Troponin I 0.803 ng/mL (0.000-0.056) Total Protein 6.8 G/DL (6.4-8.2) Albumin 1.5 G/DL (3.4-5.0) L Globulin 5.3 g/dL Albumin/Globulin Ratio 0.3 (1.0-2.7) L ARTIS SANTIAGO Jun 20, 2017 12:26
[2017-06-20] MEDS: Acetaminophen 650 MG SUPP RECTAL PRN (12:42)
--- NOTE | 2017-06-20 13:08 | Pulmonology Progress Note ---
Assessment/Plan Assessment/Plan 1. Respiratory failure. 2. Sepsis with shock. 3. Possible dialysis catheter sepsis 4. Stroke with dementia and right hemiparesis. 5. Diabetes. still on pressors, vent less resp distress trying to find family; social service involved disc w RN, Dr Harvey taper pressors prognosis poor Subjective ROS Limited/Unobtainable: Yes Allergies: Coded Allergies: No Known Allergies (Unverified , 06/18/17) Objective Last 24 Hour Vital Signs Date Time Temp Pulse Resp B/P (MAP) Pulse Ox O2 Delivery O2 Flow Rate FiO2 06/20/17 13:00 144 20 79/48 100 Mechanical Ventilator 60 06/20/17 12:30 138 20 79/43 100 Mechanical Ventilator 60 06/20/17 12:00 60 06/20/17 12:00 98.2 89 19 120/60 100 Mechanical Ventilator 60 06/20/17 12:00 74 06/20/17 11:43 107/58 06/20/17 11:37 93 20 100 Mechanical Ventilator 60 06/20/17 11:30 91 20 117/58 100 Mechanical Ventilator 60 06/20/17 11:28 89 20 60 06/20/17 11:27 89 20 100 Mechanical Ventilator 60 06/20/17 11:00 89 2 109/58 100 Mechanical Ventilator 60 06/20/17 10:30 90 2 105/52 100 Mechanical Ventilator 60 06/20/17 10:00 109/52 06/20/17 10:00 90 19 109/52 100 Mechanical Ventilator 60 06/20/17 09:30 90 20 103/56 100 Mechanical Ventilator 60 06/20/17 09:00 90/70 06/20/17 09:00 87 20 106/57 100 Mechanical Ventilator 60 06/20/17 08:58 89 20 60 06/20/17 08:42 84 21 100 Mechanical Ventilator 60 06/20/17 08:34 86 20 100 Mechanical Ventilator 60 06/20/17 08:30 90 19 107/59 100 Mechanical Ventilator 60 06/20/17 08:00 98.6 88 19 79/47 100 Mechanical Ventilator 60 06/20/17 08:00 79/46 06/20/17 08:00 60 06/20/17 08:00 86 06/20/17 07:30 90 19 108/68 100 Mechanical Ventilator 60 06/20/17 07:00 104/54 06/20/17 07:00 87 20 102/56 100 Mechanical Ventilator 60 06/20/17 06:47 86 20 60 06/20/17 06:45 87 20 104/54 100 Mechanical Ventilator 60 06/20/17 06:44 109/57 06/20/17 06:30 87 20 109/57 100 Mechanical Ventilator 60 06/20/17 06:15 88 20 127/62 100 Mechanical Ventilator 60 06/20/17 06:00 91 20 94/68 100 Mechanical Ventilator 60 06/20/17 06:00 94/68 06/20/17 05:45 91 20 94/68 100 Mechanical Ventilator 60 06/20/17 05:38 101 20 60 06/20/17 05:30 97 20 82/46 100 Mechanical Ventilator 60 06/20/17 05:15 102 20 76/49 100 Mechanical Ventilator 60 06/20/17 05:00 92 20 102/60 100 Mechanical Ventilator 60 06/20/17 05:00 85/46 06/20/17 04:45 92 20 101/58 100 Mechanical Ventilator 60 06/20/17 04:30 92 20 116/57 100 Mechanical Ventilator 60 06/20/17 04:15 92 20 92/61 100 Mechanical Ventilator 60 06/20/17 04:00 96 06/20/17 04:00 60 06/20/17 04:00 97/49 06/20/17 04:00 99.1 92 20 97/58 100 Mechanical Ventilator 60 06/20/17 03:50 101 21 96 Mechanical Ventilator 60 06/20/17 03:45 94 20 67/42 100 Mechanical Ventilator 60 06/20/17 03:43 95 86/54 06/20/17 03:40 94 29 99 Mechanical Ventilator 60 06/20/17 03:40 93 25 60 06/20/17 03:30 94 20 67/42 100 Mechanical Ventilator 60 06/20/17 03:15 81 20 126/61 100 Mechanical Ventilator 60 06/20/17 03:00 95 20 126/61 100 Mechanical Ventilator 60 06/20/17 03:00 96/46 06/20/17 02:45 96 20 94/58 100 Mechanical Ventilator 60 06/20/17 02:30 96 20 94/58 100 Mechanical Ventilator 60 06/20/17 02:15 98 20 91/57 100 Mechanical Ventilator 60 06/20/17 02:00 99 20 96/59 100 Mechanical Ventilator 60 06/20/17 02:00 96/59 06/20/17 01:45 101 20 92/63 100 Mechanical Ventilator 60 06/20/17 01:38 94 22 60 06/20/17 01:30 100 20 91/55 100 Mechanical Ventilator 60 06/20/17 01:15 99 20 88/52 100 Mechanical Ventilator 60 06/20/17 01:10 82/45 06/20/17 01:00 82/45 06/20/17 01:00 96 20 93/57 100 Mechanical Ventilator 60 06/20/17 00:45 95 20 82/48 100 Mechanical Ventilator 60 06/20/17 00:30 99 20 86/54 100 Mechanical Ventilator 60 06/20/17 00:15 100 20 86/54 100 Mechanical Ventilator 60 06/20/17 00:00 60 06/20/17 00:00 98.7 106 20 84/56 100 Mechanical Ventilator 60 06/20/17 00:00 93 06/20/17 00:00 87/44 06/20/17 00:00 92 20 96 Mechanical Ventilator 60 06/19/17 23:51 94 20 100 Mechanical Ventilator 60 06/19/17 23:50 94 20 60 06/19/17 23:45 107 20 73/54 100 Mechanical Ventilator 60 06/19/17 23:30 91 20 110/41 100 Mechanical Ventilator 60 06/19/17 23:15 92 20 83/41 100 Mechanical Ventilator 60 06/19/17 23:00 92 20 89/48 100 Mechanical Ventilator 60 06/19/17 23:00 87/40 06/19/17 22:45 92 20 84/47 100 Mechanical Ventilator 60 06/19/17 22:30 92 20 83/54 100 Mechanical Ventilator 60 06/19/17 22:15 91 20 86/47 100 Mechanical Ventilator 60 06/19/17 22:00 104/56 06/19/17 22:00 90 20 87/48 100 Mechanical Ventilator 60 06/19/17 21:45 90 20 93/56 100 Mechanical Ventilator 60 06/19/17 21:30 89 20 91/39 100 Mechanical Ventilator 60 06/19/17 21:15 89 20 70/52 100 Mechanical Ventilator 60 06/19/17 21:02 99 20 96 Mechanical Ventilator 60 06/19/17 21:00 82/46 06/19/17 21:00 88 20 82/46 100 Mechanical Ventilator 60 06/19/17 20:52 87 27 94 Mechanical Ventilator 60 06/19/17 20:51 86 20 60 06/19/17 20:45 88 20 82/46 100 Mechanical Ventilator 60 06/19/17 20:45 83/48 06/19/17 20:30 90 22 83/50 100 Mechanical Ventilator 60 06/19/17 20:29 83/48 06/19/17 20:15 91 23 81/50 100 Mechanical Ventilator 60 06/19/17 20:00 99.1 94 22 83/48 100 Mechanical Ventilator 60 06/19/17 20:00 60 06/19/17 20:00 86 06/19/17 19:45 91 23 99/53 100 Mechanical Ventilator 60 06/19/17 19:30 93 23 98/62 100 Mechanical Ventilator 60 06/19/17 19:15 90 28 121/59 100 Mechanical Ventilator 60 06/19/17 19:00 99.3 91 30 112/65 100 Mechanical Ventilator 60 06/19/17 19:00 112/65 06/19/17 18:52 93 88/54 06/19/17 18:45 90 28 88/54 100 Mechanical Ventilator 60 06/19/17 18:30 100 28 100/57 100 Mechanical Ventilator 60 06/19/17 18:00 96 20 98/60 100 Mechanical Ventilator 60 06/19/17 18:00 98/60 06/19/17 17:45 95 20 98/60 100 Mechanical Ventilator 60 06/19/17 17:30 98.7 97 20 118/61 100 Mechanical Ventilator 60 06/19/17 17:09 94 20 60 06/19/17 17:00 96 20 92/53 100 Mechanical Ventilator 60 06/19/17 17:00 92/53 06/19/17 17:00 98 20 104/56 100 Mechanical Ventilator 60 06/19/17 16:45 97 20 100/54 100 Mechanical Ventilator 60 06/19/17 16:30 98 20 104/56 100 Mechanical Ventilator 60 06/19/17 16:15 98 20 104/56 100 Mechanical Ventilator 60 06/19/17 16:00 99.3 99 20 112/66 100 Mechanical Ventilator 60 06/19/17 16:00 95 06/19/17 16:00 104/56 06/19/17 16:00 60 06/19/17 16:00 93 20 105/53 100 Mechanical Ventilator 60 06/19/17 15:30 94 30 150/74 100 Mechanical Ventilator 60 06/19/17 15:30 90 23 96 Mechanical Ventilator 60 06/19/17 15:30 91 23 65 06/19/17 15:28 69/48 06/19/17 15:20 79 27 94 Mechanical Ventilator 60 06/19/17 15:00 100 30 74/48 100 Mechanical Ventilator 60 06/19/17 14:30 101 30 66/44 100 Mechanical Ventilator 60 06/19/17 14:00 105 30 115/55 100 Mechanical Ventilator 60 06/19/17 13:30 101 32 75/57 100 Mechanical Ventilator 60 Intake and Output 06/19/17 06/20/17 19:00 07:00 Intake Total 835.50 ml 998.5 ml Output Total 0 ml 0 ml Balance 835.50 ml 998.5 ml Intake Free Water 30 ml IV Total 725.50 ml 998.5 ml Other 80 ml Output Urine Total 0 ml 0 ml # Bowel Movements 2 1 General Appearance: no acute distress Respiratory/Chest: lungs clear Cardiovascular: tachycardia Abdomen: soft, non tender Microbiology Date/Time Source Procedure Growth Status 06/19/17 13:25 Blood Blood Culture - Preliminary Resulted 06/18/17 09:20 Blood Blood Culture - Preliminary Staphylococcus Aureus Resulted 06/18/17 09:10 Blood Blood Culture - Preliminary Staphylococcus Aureus Resulted 06/18/17 22:00 Sputum Gram Stain - Final Resulted 06/18/17 22:00 Sputum Sputum Culture - Preliminary Resulted 06/18/17 13:55 Nasal Nares Influenza Types A,B Antigen (JOSE ALFREDO) - Final Complete 06/19/17 05:00 Ankle Left Gram Stain Pending Resulted 06/19/17 05:00 Ankle Left Wound Culture - Preliminary Resulted 06/18/17 20:30 Sacral Swab Gram Stain - Final Resulted 06/18/17 20:30 Wound Culture - Preliminary Gram Negative Bacillus 1 Resulted Laboratory Tests 06/19/17 13:25: Lactic Acid Level 7.30H 06/19/17 13:35: White Blood Count 11.4H, Red Blood Count 3.66L, Hemoglobin 9.8L, Hematocrit 32.4L, Mean Corpuscular Volume 88, Mean Corpuscular Hemoglobin 26.8L, Mean Corpuscular Hemoglobin Concent 30.2L, Red Cell Distribution Width 17.1H, Platelet Count 152, Mean Platelet Volume 7.1, Neutrophils (%) (Auto) 80.4H, Lymphocytes (%) (Auto) 8.9L, Monocytes (%) (Auto) 10.2H, Eosinophils (%) (Auto) 0.2, Basophils (%) (Auto) 0.4, Sodium Level 142, Potassium Level 4.7, Chloride Level 103, Carbon Dioxide Level 15L, Anion Gap 24H, Blood Urea Nitrogen 62H, Creatinine 4.8H, Estimat Glomerular Filtration Rate , Glucose Level 71L, Calcium Level 7.6L 06/20/17 05:30: Lactic Acid Level 2.70H, White Blood Count 8.3, Red Blood Count 3.44L, Hemoglobin 9.4L, Hematocrit 30.2L, Mean Corpuscular Volume 88, Mean Corpuscular Hemoglobin 27.4, Mean Corpuscular Hemoglobin Concent 31.3L, Red Cell Distribution Width 16.5H, Platelet Count 132L, Mean Platelet Volume 6.1L, Neutrophils (%) (Auto) , Lymphocytes (%) (Auto) , Monocytes (%) (Auto) , Eosinophils (%) (Auto) , Basophils (%) (Auto) , Sodium Level 139, Potassium Level 3.9, Chloride Level 101, Carbon Dioxide Level 22, Anion Gap 16H, Blood Urea Nitrogen 67H, Creatinine 5.0H, Estimat Glomerular Filtration Rate , Glucose Level 142H, Calcium Level 7.6L, Differential Total Cells Counted 100, Neutrophils % (Manual) 71, Lymphocytes % (Manual) 12L, Monocytes % (Manual) 3, Eosinophils % (Manual) 0, Basophils % (Manual) 0, Band Neutrophils 14H, Platelet Estimate DecreasedL, Platelet Morphology Normal, Hypochromasia 1+, Anisocytosis 1+, Ferritin > 2000H, Total Bilirubin 1.9H, Direct Bilirubin 1.4H, Aspartate Amino Transf (AST/SGOT) 342H, Alanine Aminotransferase (ALT/SGPT) 167H , Alkaline Phosphatase 169H, Troponin I 0.803H, Total Protein 6.8, Albumin 1.5L , Globulin 5.3, Albumin/Globulin Ratio 0.3L 06/20/17 07:45: Lactic Acid Level 2.60H Current Medications Medications (Trade) Dose Ordered Sig/Jaime Route PRN Reason Start Time Stop Time Status Last Admin Dose Admin Acetaminophen (Tylenol) 650 mg Q4H PRN RECTAL Prn Headache/Temp > 101 06/18/17 21:00 07/18/17 20:59 06/20/17 12:42 Albuterol/ Ipratropium (Albuterol/ Ipratropium) 3 ml Q4HRT HHN 06/18/17 23:00 06/23/17 22:59 06/20/17 11:27 Aspirin (ASA) 81 mg DAILY NG 06/19/17 19:00 07/19/17 18:59 06/20/17 08:07 Chlorhexidine Gluconate (Kati-Hex 2%) 1 applic Q24H TOPIC 06/19/17 20:00 07/19/17 19:59 06/19/17 20:58 Dextrose (Dextrose 50%) STAT PRN IV Hypoglycemia 06/19/17 13:00 07/19/17 12:59 Dopamine HCl/ Dextrose 250 ml @ 0 mls/hr Q24H IV 06/18/17 20:45 07/18/17 20:44 06/18/17 21:34 Epoetin Russ (Procrit (for ESRD on dialysis)) 5,000 units MON-WED-MON SUBQ 06/21/17 21:00 07/21/17 20:59 Heparin Sodium (Porcine) (Heparin 5000 units/ml) 5,000 units EVERY 12 HOURS SUBQ 06/18/17 21:00 07/18/17 20:59 06/20/17 08:08 Heparin Sodium (Porcine) (Heparin Sod 1000 units/ml 10ml) 500 unit ONCE PRN IV DIALYSIS 06/19/17 15:00 06/20/17 21:00 Insulin Aspart (NovoLOG) EVERY 6 HOURS SUBQ 06/19/17 18:00 07/19/17 17:59 06/20/17 11:13 Lansoprazole (Prevacid) 30 mg DAILY GT 06/19/17 09:00 07/19/17 08:59 06/20/17 08:07 Norepinephrine Bitartrate 4 mg/ Dextrose 250 ml @ 0 mls/hr Q24H IV 06/19/17 14:15 07/19/17 12:29 06/20/17 11:43 Phenylephrine HCl 100 mg/Sodium Chloride 250 ml @ 0 mls/hr Q24H IV 06/19/17 03:00 07/19/17 02:59 06/20/17 03:43 Piperacillin Sod/ Tazobactam Sod 2.25 gm/Dextrose 55 ml @ 110 mls/hr Q8HR@0000,0800,1600 IV 06/19/17 16:00 06/26/17 15:59 06/20/17 08:07 Sodium Chloride 1,000 ml @ 500 mls/hr Q2H PRN IVLG sbp<90 during hd 06/19/17 14:39 07/19/17 14:38 Vancomycin HCl (Vanco rx to dose) 1 ea DAILY PRN MISC Per rx protocol 06/19/17 02:45 07/19/17 02:44 PEG MARTINEZ Jun 20, 2017 13:08
[2017-06-20] MEDS ORDERED: NS 275ml ONE (17:06)
--- NOTE | 2017-06-20 19:39 | Wound Care Consultation ---
Wound Assessment Wound Assessment #1: Wound Number: 1 Wound Present on Admission: Yes New Wound: No Status Change of Wound: No Wound Location Body Site Modif: mid Wound Location Body Site: other - Sacrococcygeal extending to left and right buttock Wound Type: pressure ulcer Janet Test: Does not Janet Pressure Ulcer Stage: Unstageable Wound Thickness: Full Thickness Wound Length: 5.0 Wound Width: 6.5 Wound Depth: utd Percent of Wound [place]/Red: 40 Percent of Wound Bed Yellow/Wh: 40 Percent of Wound Purple/Maroon: 20 Wound Drainage Description: Serosanguineous Wound Drainage Amount: Moderate Wound Drainage Odor: None/Absent Tissue Surrounding Wound: Macerated Wound General Appearance: Reddened - yellow/maroon, Draining Wound Assessment #2: Wound Number: 2 Wound Present on Admission: Yes New Wound: No Status Change of Wound: No Wound Location Body Site Modif: left, lateral Wound Location Body Site: malleolus/ankle Wound Type: pressure ulcer Janet Test: Does not Janet Pressure Ulcer Stage: IV Wound Thickness: Full Thickness Wound Length: 3.0 Wound Width: 3.0 Wound Depth: 0.3 Percent of Wound [place]/Red: 90 Percent of Wound Purple/Maroon: 10 Wound Drainage Description: Serosanguineous Wound Drainage Amount: Moderate Wound Drainage Odor: None/Absent Tissue Surrounding Wound: Macerated Wound General Appearance: Reddened, Draining, Bone Palpable, Muscle Visible Wound Assessment #3: Wound Number: 3 Wound Present on Admission: Yes New Wound: No Status Change of Wound: No Wound Location Body Site Modif: right Wound Location Body Site: heel Wound Type: pressure ulcer Janet Test: Does not Janet Pressure Ulcer Stage: Unstageable Wound Thickness: Full Thickness Wound Length: 1.5 Wound Width: 1.5 Wound Depth: utd Percent of Wound Bed Yellow/Wh: 100 Wound Drainage Description: Serosanguineous Wound Drainage Amount: Scant Wound Drainage Odor: None/Absent Tissue Surrounding Wound: Macerated Wound General Appearance: Draining, Necrotic Wound Assessment #4: Wound Number: 4 Wound Present on Admission: Yes New Wound: No Status Change of Wound: No Wound Location Body Site: perineal area Wound Type: erosion Janet Test: Does not Janet Wound Thickness: Partial Thickness Percent of Wound [place]/Red: 100 Wound Drainage Amount: None Wound Drainage Odor: None/Absent Tissue Surrounding Wound: Erythemic Wound General Appearance: Reddened Wound Assessment #5: Wound Number: 5 Wound Present on Admission: Yes New Wound: No Status Change of Wound: No Wound Location Body Site Modif: left, lateral Wound Location Body Site: metatarsal head - 1st Wound Type: pressure ulcer Janet Test: Does not Janet Pressure Ulcer Stage: Deep Tissue Injury Wound Thickness: Full Thickness Wound Length: 2.0 Wound Width: 2.0 Wound Depth: utd Percent of Wound Black/Brown: 100 Wound Drainage Amount: None Wound Drainage Odor: None/Absent Tissue Surrounding Wound: Intact Wound General Appearance: Blackened - brown Wound Assessment #6: Wound Number: 6 Wound Present on Admission: Yes New Wound: No Status Change of Wound: No Wound Location Body Site Modif: right, mid, lateral Wound Location Body Site: foot Wound Type: pressure ulcer Janet Test: Does not Janet Pressure Ulcer Stage: Deep Tissue Injury Wound Thickness: Full Thickness Wound Length: 2.0 Wound Width: 2.0 Wound Depth: utd Percent of Wound Black/Brown: 100 Wound Drainage Amount: None Wound Drainage Odor: None/Absent Tissue Surrounding Wound: Intact Wound General Appearance: Blackened - brown Wound Comment #1 Sacrococcygeal unstageable extending to left and right buttock pressure ulcer #2 Left lateral malleolus stage IV pressure ulcer #3 Right heel unstageable pressure ulcer #4 Perineal Partial thickness erosion #5 Left 1st metatarsal DTI pressure ulcer #6 Right lateral mid foot DTI pressure ulcer Recommendation -Local wound care per protocol -Keep clean and dry -Turn and reposition -Optimize nutrition -Low air loss mattress -Offload both heels -Heel protector on both heels -Assess and f/u accordingly for any changes MATILDA LUCAS RN Jun 20, 2017 19:39
[2017-06-20] MEDS ORDERED: Vancomycin 1.5 GM/D5W 250ML IVPB ONE (20:00)
[2017-06-20] MEDS: Dyna-Hex 2% Top Sol 2oz TOPIC SCH (20:30)
[2017-06-20] MEDS: DOPamine 400mg/250ml 250 ML IV SCH (20:41)
[2017-06-21] VITALS (71 sets, daily range): BP systolic 50–133; BP diastolic 38–76
[2017-06-21] MEDS: Phenylephrine 100 MG in NS 240 ML IV SCH ×3 (02:05→23:57)
--- NOTE | 2017-06-21 04:45 | Progress Note ---
DATE: 06/20/2017 CARDIOLOGY PROGRESS NOTE SUBJECTIVE: The patient's condition remains critical. Prognosis guarded. He remains in the intensive care unit. He is on several pressors. His blood pressure is marginal. He remains on ventilator support. OBJECTIVE: VITAL SIGNS: Blood pressure 79/48, pulse 144, respirations 20, and afebrile. Monitored rhythm, atrial fibrillation with rapid ventricular response and episodes of sinus tachycardia. LUNGS: Bilateral breath sounds. Scattered rhonchi. HEART: Regular rhythm. Rapid rate. Normal S1 and S2. ABDOMEN: Soft. EXTREMITIES: Trace edema. LABORATORY DATA: Noted. Blood culture is positive for Staph aureus. White count 8.3 and hemoglobin 9.4. BUN 67 and creatinine 5. Lactic acid 2.6. Troponin 0.803. IMPRESSION: 1. Staphylococcus aureus. 2. Sepsis. 3. Shock. 4. End-stage renal disease. 5. Acute myocardial infarction. 6. Severe protein-calorie malnutrition. 7. Paroxysmal atrial fibrillation. 8. Shock liver. 9. Multiorgan system failure. 10. Prognosis is grave. PLANS: 1. Continue hydration. 2. Antimicrobials per Infectious Disease network security consultant. 3. Stress ulcer and DVT prophylaxis. 4. Taper pressors. 5. No role for antiarrhythmics presently. 6. Protein supplement by feeding tube. Gurdeep Harvey M.D. DR: MALCOLM JOB#: [id number] CC:
[2017-06-21] MEDS: Albuterol/Ipratropium 3ml neb HHN SCH ×6 (04:58→23:26)
[2017-06-21] MEDS: NovoLOG Insulin Flexpen SUBQ SCH ×4 (05:38→23:59)
[2017-06-21 07:11] LABS: % IRON SATURATION 64 % (15-50); IRON 46 ug/dL (50-175); TOTAL IRON BINDING CAPACITY 72 ug/dL (250-450)
--- NOTE | 2017-06-21 07:47 | Pulmonology Progress Note ---
Assessment/Plan Assessment/Plan 1. Respiratory failure. 2. Sepsis with shock. 3. Possible dialysis catheter sepsis 4. Stroke with dementia and right hemiparesis. 5. Diabetes. lower dose of pressors, still on vent no resp distress, more alert not weanable disc w RN taper pressors prognosis guarded Subjective ROS Limited/Unobtainable: Yes Allergies: Coded Allergies: No Known Allergies (Unverified , 06/18/17) Objective Last 24 Hour Vital Signs Date Time Temp Pulse Resp B/P (MAP) Pulse Ox O2 Delivery O2 Flow Rate FiO2 06/21/17 07:32 84 20 100 Mechanical Ventilator 60 06/21/17 07:26 79 20 60 06/21/17 07:20 82 20 100 Mechanical Ventilator 60 06/21/17 07:00 120/65 06/21/17 07:00 80 20 120/65 100 Mechanical Ventilator 60 06/21/17 06:45 80 20 108/62 100 Mechanical Ventilator 60 06/21/17 06:30 80 20 108/62 100 Mechanical Ventilator 60 06/21/17 06:15 81 20 108/62 100 Mechanical Ventilator 60 06/21/17 06:00 80 20 106/60 100 Mechanical Ventilator 60 06/21/17 05:45 79 20 109/60 100 Mechanical Ventilator 60 06/21/17 05:30 78 20 110/60 100 Mechanical Ventilator 60 06/21/17 05:15 82 20 118/65 100 Mechanical Ventilator 60 06/21/17 05:00 87 20 91/57 100 Mechanical Ventilator 60 06/21/17 05:00 91/57 06/21/17 04:58 85 24 60 06/21/17 04:45 86 22 99/39 100 Mechanical Ventilator 60 06/21/17 04:30 81 22 107/57 100 Mechanical Ventilator 60 06/21/17 04:15 83 20 110/60 100 Mechanical Ventilator 60 06/21/17 04:00 60 06/21/17 04:00 108/59 06/21/17 04:00 98.3 81 20 108/59 100 Mechanical Ventilator 60 06/21/17 04:00 78 06/21/17 03:45 82 21 108/61 100 Mechanical Ventilator 60 06/21/17 03:30 81 21 109/61 100 Mechanical Ventilator 60 06/21/17 03:29 87 23 100 Mechanical Ventilator 60 06/21/17 03:24 85 25 100 Mechanical Ventilator 60 06/21/17 03:20 94 20 60 06/21/17 03:15 81 22 112/60 100 Mechanical Ventilator 60 06/21/17 03:00 80 20 109/60 100 Mechanical Ventilator 60 06/21/17 02:45 80 20 109/57 100 Mechanical Ventilator 60 06/21/17 02:30 80 20 99/57 100 Mechanical Ventilator 60 06/21/17 02:15 80 20 100/56 100 Mechanical Ventilator 60 06/21/17 02:05 82 98/55 06/21/17 02:04 99/55 06/21/17 02:00 80 20 99/55 100 Mechanical Ventilator 60 06/21/17 02:00 99/55 06/21/17 01:45 82 20 97/54 100 Mechanical Ventilator 60 06/21/17 01:30 82 20 98/55 100 Mechanical Ventilator 60 06/21/17 01:20 86 20 60 06/21/17 01:15 84 19 94/51 100 Mechanical Ventilator 60 06/21/17 01:00 95/53 06/21/17 01:00 84 20 95/53 100 Mechanical Ventilator 60 06/21/17 00:45 84 20 107/57 100 Mechanical Ventilator 60 06/21/17 00:30 83 20 106/61 100 Mechanical Ventilator 60 06/21/17 00:15 82 20 104/68 100 Mechanical Ventilator 60 06/21/17 00:00 98.3 82 20 105/58 100 Mechanical Ventilator 60 06/21/17 00:00 82 06/21/17 00:00 105/58 06/21/17 00:00 60 06/20/17 23:45 83 20 94/49 100 Mechanical Ventilator 60 06/20/17 23:30 82 20 103/54 100 Mechanical Ventilator 60 06/20/17 23:15 82 20 107/57 100 Mechanical Ventilator 60 06/20/17 23:05 85 20 100 Mechanical Ventilator 60 06/20/17 23:00 106/57 06/20/17 23:00 83 20 100 Mechanical Ventilator 60 06/20/17 23:00 84 20 60 06/20/17 23:00 82 20 106/57 100 Mechanical Ventilator 60 06/20/17 22:45 82 20 103/57 100 Mechanical Ventilator 60 06/20/17 22:30 83 20 106/57 100 Mechanical Ventilator 60 06/20/17 22:15 83 20 108/57 100 Mechanical Ventilator 60 06/20/17 22:00 83 20 109/59 100 Mechanical Ventilator 60 06/20/17 22:00 109/59 06/20/17 21:45 84 20 112/59 100 Mechanical Ventilator 60 06/20/17 21:30 83 20 109/58 100 Mechanical Ventilator 60 06/20/17 21:18 91 20 60 06/20/17 21:15 83 20 109/58 100 Mechanical Ventilator 60 06/20/17 21:00 82 20 111/59 100 Mechanical Ventilator 60 06/20/17 21:00 111/59 06/20/17 20:45 83 20 110/57 100 Mechanical Ventilator 60 06/20/17 20:41 111/56 06/20/17 20:30 83 20 109/58 100 Mechanical Ventilator 60 06/20/17 20:15 83 20 111/56 100 Mechanical Ventilator 60 06/20/17 20:00 86 06/20/17 20:00 60 06/20/17 20:00 98.3 83 20 109/59 100 Mechanical Ventilator 60 06/20/17 20:00 109/59 06/20/17 19:45 85 20 107/55 100 Mechanical Ventilator 60 06/20/17 19:30 85 19 103/53 100 Mechanical Ventilator 60 06/20/17 19:10 86 20 100 Mechanical Ventilator 60 06/20/17 19:05 87 20 60 06/20/17 19:05 85 20 100 Mechanical Ventilator 60 06/20/17 19:00 90 19 89/49 100 Mechanical Ventilator 60 06/20/17 18:30 90 19 88/55 100 Mechanical Ventilator 60 06/20/17 18:00 93 19 97/54 100 Mechanical Ventilator 60 06/20/17 17:32 89 100/54 06/20/17 17:31 109/54 06/20/17 17:30 88 20 109/54 100 Mechanical Ventilator 60 06/20/17 17:03 84 20 60 06/20/17 17:00 92 20 129/63 100 Mechanical Ventilator 60 06/20/17 16:30 87 20 90/59 100 Mechanical Ventilator 60 06/20/17 16:20 Mechanical Ventilator 06/20/17 16:00 60 06/20/17 16:00 89 06/20/17 16:00 98.9 90 19 88/53 100 Mechanical Ventilator 60 06/20/17 15:30 94 23 60/35 100 Mechanical Ventilator 60 06/20/17 15:13 93 20 100 Mechanical Ventilator 60 06/20/17 15:07 90 20 60 06/20/17 15:06 92 20 100 Mechanical Ventilator 60 06/20/17 15:00 90 19 100/59 100 Mechanical Ventilator 60 06/20/17 14:30 95 19 95/53 100 Mechanical Ventilator 60 06/20/17 14:00 95 20 91/53 100 Mechanical Ventilator 60 06/20/17 13:30 115 19 87/48 100 Mechanical Ventilator 60 06/20/17 13:30 110 23 60 06/20/17 13:12 99.0 06/20/17 13:00 144 20 79/48 100 Mechanical Ventilator 60 06/20/17 12:30 138 20 79/43 100 Mechanical Ventilator 60 06/20/17 12:00 60 06/20/17 12:00 98.2 89 19 120/60 100 Mechanical Ventilator 60 06/20/17 12:00 74 06/20/17 11:43 107/58 06/20/17 11:37 93 20 100 Mechanical Ventilator 60 06/20/17 11:30 91 20 117/58 100 Mechanical Ventilator 60 06/20/17 11:28 89 20 60 06/20/17 11:27 89 20 100 Mechanical Ventilator 60 06/20/17 11:00 89 20 109/58 100 Mechanical Ventilator 60 06/20/17 10:30 90 21 105/52 100 Mechanical Ventilator 60 06/20/17 10:00 109/52 06/20/17 10:00 90 19 109/52 100 Mechanical Ventilator 60 06/20/17 09:30 90 20 103/56 100 Mechanical Ventilator 60 06/20/17 09:00 90/70 06/20/17 09:00 87 20 106/57 100 Mechanical Ventilator 60 06/20/17 08:58 89 20 60 06/20/17 08:42 84 21 100 Mechanical Ventilator 60 06/20/17 08:34 86 20 100 Mechanical Ventilator 60 06/20/17 08:30 90 19 107/59 100 Mechanical Ventilator 60 06/20/17 08:00 98.6 88 19 79/47 100 Mechanical Ventilator 60 06/20/17 08:00 79/46 06/20/17 08:00 60 06/20/17 08:00 86 Intake and Output 06/20/17 06/21/17 19:00 07:00 Intake Total 1859.5 ml 906.5 ml Output Total 0 ml 0 ml Balance 1859.5 ml 906.5 ml IV Total 899.5 ml 906.5 ml Other 960 ml Output Urine Total 0 ml 0 ml # Bowel Movements 2 2 General Appearance: no acute distress HEENT: atraumatic Respiratory/Chest: rhonchi Cardiovascular: normal rate Microbiology Date/Time Source Procedure Growth Status 06/19/17 13:25 Blood Blood Culture - Preliminary Staphylococcus Aureus Resulted 06/18/17 09:20 Blood Blood Culture - Final Staphylococcus Aureus - Mrsa Complete 06/18/17 09:10 Blood Blood Culture - Final Staphylococcus Aureus - Mrsa Complete 06/19/17 13:00 Sputum Gram Stain - Final Resulted 06/19/17 13:00 Sputum Sputum Culture Pending Resulted 06/18/17 22:00 Sputum Gram Stain - Final Resulted 06/18/17 22:00 Sputum Sputum Culture - Preliminary Resulted 06/18/17 13:55 Nasal Nares Influenza Types A,B Antigen (JOSE ALFREDO) - Final Complete 06/19/17 05:00 Ankle Left Gram Stain - Final Resulted 06/19/17 05:00 Ankle Left Wound Culture - Preliminary Resulted 06/18/17 20:30 Sacral Swab Gram Stain - Final Resulted 06/18/17 20:30 Wound Culture - Preliminary Gram Negative Bacillus 1 Resulted Laboratory Tests 06/20/17 17:30: Random Vancomycin Level < 2.0 06/20/17 17:45: Hepatitis A IgM Antibody [Pending], Hepatitis B Surface Antigen [Pending], Hepatitis B Core IgM Antibody [Pending], Hepatitis C Antibody [Pending] 06/21/17 06:05: Iron Level 46L, Total Iron Binding Capacity 72L, Percent Iron Saturation 64H, Unsaturated Iron Binding 26L Current Medications Medications (Trade) Dose Ordered Sig/Jaime Route PRN Reason Start Time Stop Time Status Last Admin Dose Admin Acetaminophen (Tylenol) 650 mg Q4H PRN RECTAL Prn Headache/Temp > 101 06/18/17 21:00 07/18/17 20:59 06/20/17 12:42 Albuterol/ Ipratropium (Albuterol/ Ipratropium) 3 ml Q4HRT HHN 06/18/17 23:00 06/23/17 22:59 06/21/17 07:24 Aspirin (ASA) 81 mg DAILY NG 06/19/17 19:00 07/19/17 18:59 06/20/17 08:07 Chlorhexidine Gluconate (Kati-Hex 2%) 1 applic Q24H TOPIC 06/19/17 20:00 07/19/17 19:59 06/20/17 20:30 Dextrose (Dextrose 50%) STAT PRN IV Hypoglycemia 06/19/17 13:00 07/19/17 12:59 Dopamine HCl/ Dextrose 250 ml @ 0 mls/hr Q24H IV 06/18/17 20:45 07/18/17 20:44 06/18/17 21:34 Epoetin Russ (Procrit (for ESRD on dialysis)) 5,000 units MON-MON-MON SUBQ 06/21/17 21:00 07/21/17 20:59 Heparin Sodium (Porcine) (Heparin 5000 units/ml) 5,000 units EVERY 12 HOURS SUBQ 06/18/17 21:00 07/18/17 20:59 06/20/17 08:08 Insulin Aspart (NovoLOG) EVERY 6 HOURS SUBQ 06/19/17 18:00 07/19/17 17:59 06/21/17 05:38 Lansoprazole (Prevacid) 30 mg DAILY GT 06/19/17 09:00 07/19/17 08:59 06/20/17 08:07 Norepinephrine Bitartrate 4 mg/ Dextrose 250 ml @ 0 mls/hr Q24H IV 06/19/17 14:15 07/19/17 12:29 06/21/17 02:04 Phenylephrine HCl 100 mg/Sodium Chloride 250 ml @ 0 mls/hr Q24H IV 06/19/17 03:00 07/19/17 02:59 06/21/17 02:05 Piperacillin Sod/ Tazobactam Sod 2.25 gm/Dextrose 55 ml @ 110 mls/hr Q8HR@0000,0800,1600 IV 06/19/17 16:00 06/26/17 15:59 06/20/17 23:55 Sodium Chloride 1,000 ml @ 500 mls/hr Q2H PRN IVLG sbp<90 during hd 06/19/17 14:39 07/19/17 14:38 Vancomycin HCl (Vanco rx to dose) 1 ea DAILY PRN MISC Per rx protocol 06/19/17 02:45 07/19/17 02:44 PEG MARTINEZ Jun 21, 2017 07:47
--- NOTE | 2017-06-21 07:52 | Nephrology Progress Note ---
Assessment/Plan Problem List: (1) Healthcare-associated pneumonia (2) Malnutrition of moderate degree (3) End-stage renal disease (4) Respiratory failure (5) Septic shock Plan , meds reviewed for eskd,hypotension on pressors, mrsa sepsis, hd stopped early 06/20, L femoral permcath removed 0750 without problem Subjective ROS Limited/Unobtainable: Yes Objective Objective Last 24 Hour Vital Signs Date Time Temp Pulse Resp B/P (MAP) Pulse Ox O2 Delivery O2 Flow Rate FiO2 06/21/17 07:32 84 20 100 Mechanical Ventilator 60 06/21/17 07:26 79 20 60 06/21/17 07:20 82 20 100 Mechanical Ventilator 60 06/21/17 07:00 120/65 06/21/17 07:00 80 20 120/65 100 Mechanical Ventilator 60 06/21/17 06:45 80 20 108/62 100 Mechanical Ventilator 60 06/21/17 06:30 80 20 108/62 100 Mechanical Ventilator 60 06/21/17 06:15 81 20 108/62 100 Mechanical Ventilator 60 06/21/17 06:00 80 20 106/60 100 Mechanical Ventilator 60 06/21/17 05:45 79 20 109/60 100 Mechanical Ventilator 60 06/21/17 05:30 78 20 110/60 100 Mechanical Ventilator 60 06/21/17 05:15 82 20 118/65 100 Mechanical Ventilator 60 06/21/17 05:00 87 20 91/57 100 Mechanical Ventilator 60 06/21/17 05:00 91/57 06/21/17 04:58 85 24 60 06/21/17 04:45 86 22 99/39 100 Mechanical Ventilator 60 06/21/17 04:30 81 22 107/57 100 Mechanical Ventilator 60 06/21/17 04:15 83 20 110/60 100 Mechanical Ventilator 60 06/21/17 04:00 60 06/21/17 04:00 108/59 06/21/17 04:00 98.3 81 20 108/59 100 Mechanical Ventilator 60 06/21/17 04:00 78 06/21/17 03:45 82 21 108/61 100 Mechanical Ventilator 60 06/21/17 03:30 81 21 109/61 100 Mechanical Ventilator 60 06/21/17 03:29 87 23 100 Mechanical Ventilator 60 06/21/17 03:24 85 25 100 Mechanical Ventilator 60 06/21/17 03:20 94 20 60 06/21/17 03:15 81 22 112/60 100 Mechanical Ventilator 60 06/21/17 03:00 80 20 109/60 100 Mechanical Ventilator 60 06/21/17 02:45 80 20 109/57 100 Mechanical Ventilator 60 06/21/17 02:30 80 20 99/57 100 Mechanical Ventilator 60 06/21/17 02:15 80 20 100/56 100 Mechanical Ventilator 60 06/21/17 02:05 82 98/55 06/21/17 02:04 99/55 06/21/17 02:00 80 20 99/55 100 Mechanical Ventilator 60 06/21/17 02:00 99/55 06/21/17 01:45 82 20 97/54 100 Mechanical Ventilator 60 06/21/17 01:30 82 20 98/55 100 Mechanical Ventilator 60 06/21/17 01:20 86 20 60 06/21/17 01:15 84 19 94/51 100 Mechanical Ventilator 60 06/21/17 01:00 95/53 06/21/17 01:00 84 20 95/53 100 Mechanical Ventilator 60 06/21/17 00:45 84 20 107/57 100 Mechanical Ventilator 60 06/21/17 00:30 83 20 106/61 100 Mechanical Ventilator 60 06/21/17 00:15 82 20 104/68 100 Mechanical Ventilator 60 06/21/17 00:00 98.3 82 20 105/58 100 Mechanical Ventilator 60 06/21/17 00:00 82 06/21/17 00:00 105/58 06/21/17 00:00 60 06/20/17 23:45 83 20 94/49 100 Mechanical Ventilator 60 06/20/17 23:30 82 20 103/54 100 Mechanical Ventilator 60 06/20/17 23:15 82 20 107/57 100 Mechanical Ventilator 60 06/20/17 23:05 85 20 100 Mechanical Ventilator 60 06/20/17 23:00 106/57 06/20/17 23:00 83 20 100 Mechanical Ventilator 60 06/20/17 23:00 84 20 60 06/20/17 23:00 82 20 106/57 100 Mechanical Ventilator 60 06/20/17 22:45 82 20 103/57 100 Mechanical Ventilator 60 06/20/17 22:30 83 20 106/57 100 Mechanical Ventilator 60 06/20/17 22:15 83 20 108/57 100 Mechanical Ventilator 60 06/20/17 22:00 83 20 109/59 100 Mechanical Ventilator 60 06/20/17 22:00 109/59 06/20/17 21:45 84 20 112/59 100 Mechanical Ventilator 60 06/20/17 21:30 83 20 109/58 100 Mechanical Ventilator 60 06/20/17 21:18 91 20 60 06/20/17 21:15 83 20 109/58 100 Mechanical Ventilator 60 06/20/17 21:00 82 20 111/59 100 Mechanical Ventilator 60 06/20/17 21:00 111/59 06/20/17 20:45 83 20 110/57 100 Mechanical Ventilator 60 06/20/17 20:41 111/56 06/20/17 20:30 83 20 109/58 100 Mechanical Ventilator 60 06/20/17 20:15 83 20 111/56 100 Mechanical Ventilator 60 06/20/17 20:00 86 06/20/17 20:00 60 06/20/17 20:00 98.3 83 20 109/59 100 Mechanical Ventilator 60 06/20/17 20:00 109/59 06/20/17 19:45 85 20 107/55 100 Mechanical Ventilator 60 06/20/17 19:30 85 19 103/53 100 Mechanical Ventilator 60 06/20/17 19:10 86 20 100 Mechanical Ventilator 60 06/20/17 19:05 87 20 60 06/20/17 19:05 85 20 100 Mechanical Ventilator 60 06/20/17 19:00 90 19 89/49 100 Mechanical Ventilator 60 06/20/17 18:30 90 19 88/55 100 Mechanical Ventilator 60 06/20/17 18:00 93 19 97/54 100 Mechanical Ventilator 60 06/20/17 17:32 89 100/54 06/20/17 17:31 109/54 06/20/17 17:30 88 20 109/54 100 Mechanical Ventilator 60 06/20/17 17:03 84 20 60 06/20/17 17:00 92 20 129/63 100 Mechanical Ventilator 60 06/20/17 16:30 87 20 90/59 100 Mechanical Ventilator 60 06/20/17 16:20 Mechanical Ventilator 06/20/17 16:00 60 06/20/17 16:00 89 06/20/17 16:00 98.9 90 19 88/53 100 Mechanical Ventilator 60 06/20/17 15:30 94 23 60/35 100 Mechanical Ventilator 60 06/20/17 15:13 93 20 100 Mechanical Ventilator 60 06/20/17 15:07 90 20 60 06/20/17 15:06 92 20 100 Mechanical Ventilator 60 06/20/17 15:00 90 19 100/59 100 Mechanical Ventilator 60 06/20/17 14:30 95 19 95/53 100 Mechanical Ventilator 60 06/20/17 14:00 95 20 91/53 100 Mechanical Ventilator 60 06/20/17 13:30 115 19 87/48 100 Mechanical Ventilator 60 06/20/17 13:30 110 23 60 06/20/17 13:12 99.0 06/20/17 13:00 144 20 79/48 100 Mechanical Ventilator 60 06/20/17 12:30 138 20 79/43 100 Mechanical Ventilator 60 06/20/17 12:00 60 06/20/17 12:00 98.2 89 19 120/60 100 Mechanical Ventilator 60 06/20/17 12:00 74 06/20/17 11:43 107/58 06/20/17 11:37 93 20 100 Mechanical Ventilator 60 06/20/17 11:30 91 20 117/58 100 Mechanical Ventilator 60 06/20/17 11:28 89 20 60 06/20/17 11:27 89 20 100 Mechanical Ventilator 60 06/20/17 11:00 89 20 109/58 100 Mechanical Ventilator 60 06/20/17 10:30 90 21 105/52 100 Mechanical Ventilator 60 06/20/17 10:00 109/52 06/20/17 10:00 90 19 109/52 100 Mechanical Ventilator 60 06/20/17 09:30 90 20 103/56 100 Mechanical Ventilator 60 06/20/17 09:00 90/70 06/20/17 09:00 87 20 106/57 100 Mechanical Ventilator 60 06/20/17 08:58 89 20 60 06/20/17 08:42 84 21 100 Mechanical Ventilator 60 06/20/17 08:34 86 20 100 Mechanical Ventilator 60 06/20/17 08:30 90 19 107/59 100 Mechanical Ventilator 60 06/20/17 08:00 98.6 88 19 79/47 100 Mechanical Ventilator 60 06/20/17 08:00 79/46 06/20/17 08:00 60 06/20/17 08:00 86 Intake and Output 06/20/17 06/21/17 19:00 07:00 Intake Total 1859.5 ml 906.5 ml Output Total 0 ml 0 ml Balance 1859.5 ml 906.5 ml IV Total 899.5 ml 906.5 ml Other 960 ml Output Urine Total 0 ml 0 ml # Bowel Movements 2 2 Laboratory Tests 06/20/17 17:30: Random Vancomycin Level < 2.0 06/20/17 17:45: Hepatitis A IgM Antibody [Pending], Hepatitis B Surface Antigen [Pending], Hepatitis B Core IgM Antibody [Pending], Hepatitis C Antibody [Pending] 06/21/17 06:05: Iron Level 46L, Total Iron Binding Capacity 72L, Percent Iron Saturation 64H, Unsaturated Iron Binding 26L Height (Feet): 5 Height (Inches): 10.00 Weight (Pounds): 154 General Appearance: moderate distress, other - intubated EENT: normal ENT inspection Neck: normal alignment Cardiovascular: regular rhythm Respiratory/Chest: rhonchi - bilaterally Abdomen: non tender, soft Extremities: moderate edema Neurologic: disoriented LEONORA HUI Jun 21, 2017 07:52
[2017-06-21] MEDS: Aspirin Baby 81mg NG SCH (08:32)
[2017-06-21] MEDS: Zosyn 2.25 gm in D5W 55ml IV SCH ×3 (08:32→23:57)
[2017-06-21] MEDS: Heparin 5000 units/ml inj SUBQ SCH ×2 (08:34→21:37)
[2017-06-21 09:52] LABS: HEMATOCRIT 24.3 % (42.0-52.0); HEMOGLOBIN 7.5 G/DL (14.2-18.0); MEAN CORPUSCULAR VOLUME 88 FL (80-99); PLATELET COUNT 119 K/UL (150-450); RED BLOOD COUNT 2.75 M/UL (4.70-6.10); RED CELL DISTRIBUTION WIDTH 16.7 % (11.6-14.8); WHITE BLOOD COUNT 9.5 K/UL (4.8-10.8)
[2017-06-21 10:09] LABS: ALANINE AMINOTRANSFERASE 101 U/L (12-78); ALBUMIN 1.1 G/DL (3.4-5.0); ALBUMIN/GLOBULIN RATIO 0.3 (1.0-2.7); ALKALINE PHOSPHATASE 125 U/L (46-116); ANION GAP 15 mmol/L (5-15); ASPARTATE AMINO TRANSFERASE 140 U/L (15-37); BILIRUBIN,TOTAL 1.7 MG/DL (0.2-1.0); BLOOD UREA NITROGEN 56 mg/dL (7-18); CALCIUM 6.2 MG/DL (8.5-10.1); CARBON DIOXIDE 19 MMOL/L (21-32); CHLORIDE 102 MMOL/L (98-107); CREATININE 4.2 MG/DL (0.55-1.30); SODIUM 136 MMOL/L (136-145)
[2017-06-21 10:10] LABS: BILIRUBIN,DIRECT 1.2 MG/DL (0.0-0.3)
--- NOTE | 2017-06-21 11:36 | Infectious Diseases Prog Note ---
"Assessment/Plan Assessment/Plan antibiotics : vancomycin iv, zosyn A 1. MRSA sepsis s/p catheter removal 2. septic shock 3. respiratory failure 4. renal failure 5. staph aureus | gram negative pneumonia P 1. continue vancomycin iv, zosyn 2. will follow up cultures Subjective ROS Limited/Unobtainable: Yes Allergies: Coded Allergies: No Known Allergies (Unverified , 06/18/17) Objective Vital Signs Last 24 Hour Vital Signs Date Time Temp Pulse Resp B/P (MAP) Pulse Ox O2 Delivery O2 Flow Rate FiO2 06/21/17 11:31 80 72/50 06/21/17 10:54 78 20 100 Mechanical Ventilator 60 06/21/17 10:51 79 20 60 06/21/17 10:45 79 20 100 Mechanical Ventilator 60 06/21/17 09:30 77 20 99/58 100 Mechanical Ventilator 60 06/21/17 09:29 78 20 60 06/21/17 09:15 77 20 103/55 100 Mechanical Ventilator 60 06/21/17 09:00 78 21 111/58 100 Mechanical Ventilator 60 06/21/17 08:45 74 20 111/56 100 Mechanical Ventilator 60 06/21/17 08:30 76 20 112/64 100 Mechanical Ventilator 60 06/21/17 08:15 81 21 81/50 100 Mechanical Ventilator 60 06/21/17 08:00 60 06/21/17 08:00 81 06/21/17 08:00 105/58 06/21/17 08:00 98.4 80 20 105/58 100 Mechanical Ventilator 60 06/21/17 07:45 82 20 93/56 100 Mechanical Ventilator 60 06/21/17 07:32 84 20 100 Mechanical Ventilator 60 06/21/17 07:30 83 20 99/56 100 Mechanical Ventilator 60 06/21/17 07:26 79 20 60 06/21/17 07:20 82 20 100 Mechanical Ventilator 60 06/21/17 07:00 120/65 06/21/17 07:00 80 20 120/65 100 Mechanical Ventilator 60 06/21/17 06:45 80 20 108/62 100 Mechanical Ventilator 60 06/21/17 06:30 80 20 108/62 100 Mechanical Ventilator 60 06/21/17 06:15 81 20 108/62 100 Mechanical Ventilator 60 06/21/17 06:00 80 20 106/60 100 Mechanical Ventilator 60 06/21/17 05:45 79 20 109/60 100 Mechanical Ventilator 60 06/21/17 05:30 78 20 110/60 100 Mechanical Ventilator 60 06/21/17 05:15 82 20 118/65 100 Mechanical Ventilator 60 06/21/17 05:00 87 20 91/57 100 Mechanical Ventilator 60 06/21/17 05:00 91/57 06/21/17 04:58 85 24 60 06/21/17 04:45 86 22 99/39 100 Mechanical Ventilator 60 06/21/17 04:30 81 22 107/57 100 Mechanical Ventilator 60 06/21/17 04:15 83 20 110/60 100 Mechanical Ventilator 60 06/21/17 04:00 60 06/21/17 04:00 108/59 06/21/17 04:00 98.3 81 20 108/59 100 Mechanical Ventilator 60 06/21/17 04:00 78 06/21/17 03:45 82 21 108/61 100 Mechanical Ventilator 60 06/21/17 03:30 81 21 109/61 100 Mechanical Ventilator 60 06/21/17 03:29 87 23 100 Mechanical Ventilator 60 06/21/17 03:24 85 25 100 Mechanical Ventilator 60 06/21/17 03:20 94 20 60 06/21/17 03:15 81 22 112/60 100 Mechanical Ventilator 60 06/21/17 03:00 80 20 109/60 100 Mechanical Ventilator 60 06/21/17 02:45 80 20 109/57 100 Mechanical Ventilator 60 06/21/17 02:30 80 20 99/57 100 Mechanical Ventilator 60 06/21/17 02:15 80 20 100/56 100 Mechanical Ventilator 60 06/21/17 02:05 82 98/55 06/21/17 02:04 99/55 06/21/17 02:00 80 20 99/55 100 Mechanical Ventilator 60 06/21/17 02:00 99/55 06/21/17 01:45 82 20 97/54 100 Mechanical Ventilator 60 06/21/17 01:30 82 20 98/55 100 Mechanical Ventilator 60 06/21/17 01:20 86 20 60 06/21/17 01:15 84 19 94/51 100 Mechanical Ventilator 60 06/21/17 01:00 95/53 06/21/17 01:00 84 20 95/53 100 Mechanical Ventilator 60 06/21/17 00:45 84 20 107/57 100 Mechanical Ventilator 60 06/21/17 00:30 83 20 106/61 100 Mechanical Ventilator 60 06/21/17 00:15 82 20 104/68 100 Mechanical Ventilator 60 06/21/17 00:00 98.3 82 20 105/58 100 Mechanical Ventilator 60 06/21/17 00:00 82 06/21/17 00:00 105/58 06/21/17 00:00 60 06/20/17 23:45 83 20 94/49 100 Mechanical Ventilator 60 06/20/17 23:30 82 20 103/54 100 Mechanical Ventilator 60 06/20/17 23:15 82 20 107/57 100 Mechanical Ventilator 60 06/20/17 23:05 85 20 100 Mechanical Ventilator 60 06/20/17 23:00 106/57 06/20/17 23:00 83 20 100 Mechanical Ventilator 60 06/20/17 23:00 84 20 60 06/20/17 23:00 82 20 106/57 100 Mechanical Ventilator 60 06/20/17 22:45 82 20 103/57 100 Mechanical Ventilator 60 06/20/17 22:30 83 20 106/57 100 Mechanical Ventilator 60 06/20/17 22:15 83 20 108/57 100 Mechanical Ventilator 60 06/20/17 22:00 83 20 109/59 100 Mechanical Ventilator 60 06/20/17 22:00 109/59 06/20/17 21:45 84 20 112/59 100 Mechanical Ventilator 60 06/20/17 21:30 83 20 109/58 100 Mechanical Ventilator 60 06/20/17 21:18 91 20 60 06/20/17 21:15 83 20 109/58 100 Mechanical Ventilator 60 06/20/17 21:00 82 20 111/59 100 Mechanical Ventilator 60 06/20/17 21:00 111/59 06/20/17 20:45 83 20 110/57 100 Mechanical Ventilator 60 06/20/17 20:41 111/56 06/20/17 20:30 83 20 109/58 100 Mechanical Ventilator 60 06/20/17 20:15 83 20 111/56 100 Mechanical Ventilator 60 06/20/17 20:00 86 06/20/17 20:00 60 06/20/17 20:00 98.3 83 20 109/59 100 Mechanical Ventilator 60 06/20/17 20:00 109/59 06/20/17 19:45 85 20 107/55 100 Mechanical Ventilator 60 06/20/17 19:30 85 19 103/53 100 Mechanical Ventilator 60 06/20/17 19:10 86 20 100 Mechanical Ventilator 60 06/20/17 19:05 87 20 60 06/20/17 19:05 85 20 100 Mechanical Ventilator 60 06/20/17 19:00 90 19 89/49 100 Mechanical Ventilator 60 06/20/17 18:30 90 19 88/55 100 Mechanical Ventilator 60 06/20/17 18:00 93 19 97/54 100 Mechanical Ventilator 60 06/20/17 17:32 89 100/54 06/20/17 17:31 109/54 06/20/17 17:30 88 20 109/54 100 Mechanical Ventilator 60 06/20/17 17:03 84 20 60 06/20/17 17:00 92 20 129/63 100 Mechanical Ventilator 60 06/20/17 16:30 87 20 90/59 100 Mechanical Ventilator 60 06/20/17 16:20 Mechanical Ventilator 06/20/17 16:00 60 06/20/17 16:00 89 06/20/17 16:00 98.9 90 19 88/53 100 Mechanical Ventilator 60 06/20/17 15:30 94 23 60/35 100 Mechanical Ventilator 60 06/20/17 15:13 93 20 100 Mechanical Ventilator 60 06/20/17 15:07 90 20 60 06/20/17 15:06 92 20 100 Mechanical Ventilator 60 06/20/17 15:00 90 19 100/59 100 Mechanical Ventilator 60 06/20/17 14:30 95 19 95/53 100 Mechanical Ventilator 60 06/20/17 14:00 95 20 91/53 100 Mechanical Ventilator 60 06/20/17 13:30 115 19 87/48 100 Mechanical Ventilator 60 06/20/17 13:30 110 23 60 06/20/17 13:12 99.0 06/20/17 13:00 144 20 79/48 100 Mechanical Ventilator 60 06/20/17 12:30 138 20 79/43 100 Mechanical Ventilator 60 06/20/17 12:00 60 06/20/17 12:00 98.2 89 19 120/60 100 Mechanical Ventilator 60 06/20/17 12:00 74 06/20/17 11:43 107/58 06/20/17 11:37 93 20 100 Mechanical Ventilator 60 Height (Feet): 5 Height (Inches): 10.00 Weight (Pounds): 154 HEENT: other - intubated Respiratory/Chest: lungs clear Cardiovascular: normal rate, regular rhythm, no gallop/murmur Abdomen: soft, non tender Extremities: no edema, other - right groin catheter Microbiology Date/Time Source Procedure Growth Status 06/19/17 13:25 Blood Blood Culture - Preliminary Staphylococcus Aureus Resulted 06/19/17 13:00 Sputum Gram Stain - Final Resulted 06/19/17 13:00 Sputum Culture - Preliminary Gram Negative Bacillus 1 Usual Upper Respiratory Angela Resulted 06/18/17 22:00 Sputum Gram Stain - Final Resulted 06/18/17 22:00 Sputum Culture - Preliminary Staphylococcus Aureus Usual Upper Respiratory Angela Resulted 06/18/17 19:20 Nasal Nares MRSA Culture - Final NO METHICILLIN RESISTANT STAPH AUREUS... Complete 06/18/17 13:55 Nasal Nares Influenza Types A,B Antigen (JOSE ALFREDO) - Final Complete 06/19/17 05:00 Ankle Left Gram Stain - Final Resulted 06/19/17 05:00 Wound Culture - Preliminary Staphylococcus Aureus Gram Negative Bacillus 2 Resulted 06/18/17 20:30 Sacral Swab Gram Stain - Final Resulted 06/18/17 20:30 Wound Culture - Preliminary Escherichia Coli Gram Negative Bacillus 2 Staphylococcus Aureus Resulted 06/18/17 19:20 Rectum VRE Culture - Final NO VANCOMYCIN RESISTANT ENTEROCOCCUS ... Complete Laboratory Tests Test 06/20/17 17:30 06/20/17 17:45 06/21/17 06:05 06/21/17 08:45 Random Vancomycin Level < 2.0 ug/mL Hepatitis A IgM Antibody Pending Hepatitis B Surface Antigen Pending Hepatitis B Core IgM Antibody Pending Hepatitis C Antibody Pending Iron Level 46 ug/dL (50-175) L Total Iron Binding Capacity 72 ug/dL (250-450) L Percent Iron Saturation 64 % (15-50) H Unsaturated Iron Binding 26 ug/dL (112-346) L White Blood Count 9.5 K/UL (4.8-10.8) Red Blood Count 2.75 M/UL (4.70-6.10) L Hemoglobin 7.5 G/DL (14.2-18.0) L Hematocrit 24.3 % (42.0-52.0) L Mean Corpuscular Volume 88 FL (80-99) Mean Corpuscular Hemoglobin 27.2 PG (27.0-31.0) Mean Corpuscular Hemoglobin Concent 30.8 G/DL (32.0-36.0) L Red Cell Distribution Width 16.7 % (11.6-14.8) H Platelet Count 119 K/UL (150-450) L Mean Platelet Volume 6.6 FL (6.5-10.1) Neutrophils (%) (Auto) % (45.0-75.0) Lymphocytes (%) (Auto) % (20.0-45.0) Monocytes (%) (Auto) % (1.0-10.0) Eosinophils (%) (Auto) % (0.0-3.0) Basophils (%) (Auto) % (0.0-2.0) Differential Total Cells Counted 100 Neutrophils % (Manual) 71 % (45-75) Lymphocytes % (Manual) 10 % (20-45) L Monocytes % (Manual) 6 % (1-10) Eosinophils % (Manual) 3 % (0-3) Basophils % (Manual) 0 % (0-2) Band Neutrophils 10 % (0-8) H Platelet Estimate Decreased L Platelet Morphology Normal Hypochromasia 1+ Anisocytosis 1+ Sodium Level 136 MMOL/L (136-145) Potassium Level 3.0 MMOL/L (3.5-5.1) L Chloride Level 102 MMOL/L (98-107) Carbon Dioxide Level 19 MMOL/L (21-32) L Anion Gap 15 mmol/L (5-15) Blood Urea Nitrogen 56 mg/dL (7-18) H Creatinine 4.2 MG/DL (0.55-1.30) H Estimat Glomerular Filtration Rate mL/min (>60) Glucose Level 225 MG/DL (74-106) H Lactic Acid Level 2.00 mmol/L (0.66-2.22) Calcium Level 6.2 MG/DL (8.5-10.1) L Total Bilirubin 1.7 MG/DL (0.2-1.0) H Direct Bilirubin 1.2 MG/DL (0.0-0.3) H Aspartate Amino Transf (AST/SGOT) 140 U/L (15-37) H Alanine Aminotransferase (ALT/SGPT) 101 U/L (12-78) H Alkaline Phosphatase 125 U/L (46-116) H Total Protein 5.3 G/DL (6.4-8.2) L Albumin 1.1 G/DL (3.4-5.0) L Globulin 4.2 g/dL Albumin/Globulin Ratio 0.3 (1.0-2.7) L ARTIS SANTIAGO Jun 21, 2017 11:36"
[2017-06-21] MEDS: Dyna-Hex 2% Top Sol 2oz TOPIC SCH (19:57)
[2017-06-21] MEDS: DOPamine 400mg/250ml 250 ML IV SCH (20:45)
--- NOTE | 2017-06-21 21:30 | Progress Note ---
DATE: 06/21/2017 CARDIOLOGY PROGRESS NOTE SUBJECTIVE: The patient's condition remains critical with guarded prognosis. He remains in the intensive care unit. He remains on ventilator support and it is not presently weanable. He continues to require pressor support due to marginal blood pressure reading, although some tapering has occurred. OBJECTIVE: VITAL SIGNS: Blood pressure 95/55, pulse 76, respirations 22, and afebrile. LUNGS: Coarse breath sounds. Scattered rhonchi. Thin trach secretions. HEART: Regular rhythm and rate. Normal S1 and S2 with a fourth heart sound. ABDOMEN: Soft. EXTREMITIES: No edema. SKIN: With decubitus as pictured in the nursing record. LABORATORY DATA: White count 9.5 and hemoglobin 7.5. Potassium 3, BUN 56, and creatinine 4.2. Albumin 1.1. Lactic acid 2. IMPRESSION: 1. Severe sepsis with shock. 2. Gram-negative pneumonia. 3. Respiratory failure. 4. Staphylococcus aureus bacteremia. 5. End-stage renal disease. 6. Lactic acidosis, resolved. 7. Severe protein-calorie malnutrition. 8. Acute myocardial ischemia. 9. Acute myocardial infarction. 10. Acute on chronic diastolic congestive heart failure. 11. Shock liver. PLAN: 1. Taper off pressors. 2. Continue ventilator support. 3. Antimicrobials per Infectious Disease labor relations consultant. 4. Protein supplements by feeding tube. 5. Skin care. 6. DVT and stress ulcer prophylaxes. 7. Hemodialysis with ultrafiltration as able. 8. We will discuss with consultants, however, on the basis of his multiorgan system disease and severe debility, I feel that a DNR is appropriate at this time while continuing medical current level of support. Gurdeep Harvey M.D. DR: Radha JOB#: [id number] CC:
[2017-06-21] MEDS: Epogen (for ESRD on dialysis) SUBQ SCH (21:35)
[2017-06-22] VITALS (71 sets, daily range): BP systolic 71–114; BP diastolic 39–86
[2017-06-22] MEDS: Albuterol/Ipratropium 3ml neb HHN SCH ×6 (03:23→23:21)
[2017-06-22] MEDS: NovoLOG Insulin Flexpen SUBQ SCH ×4 (05:57→23:49)
[2017-06-22 05:59] LABS: BASOPHILS % (AUTO) 0.2 % (0.0-2.0); EOSINOPHILS % (AUTO) 1.2 % (0.0-3.0); HEMATOCRIT 26.5 % (42.0-52.0); HEMOGLOBIN 8.3 G/DL (14.2-18.0); LYMPHOCYTES % (AUTO) 9.8 % (20.0-45.0); MEAN CORPUSCULAR VOLUME 87 FL (80-99); MONOCYTES % (AUTO) 6.4 % (1.0-10.0); NEUTROPHILS % (AUTO) 82.4 % (45.0-75.0); PLATELET COUNT 108 K/UL (150-450); RED BLOOD COUNT 3.05 M/UL (4.70-6.10); RED CELL DISTRIBUTION WIDTH 16.7 % (11.6-14.8); WHITE BLOOD COUNT 11.9 K/UL (4.8-10.8)
[2017-06-22 06:38] LABS: ALANINE AMINOTRANSFERASE 88 U/L (12-78); ALBUMIN 1.2 G/DL (3.4-5.0); ALBUMIN/GLOBULIN RATIO 0.3 (1.0-2.7); ALKALINE PHOSPHATASE 132 U/L (46-116); ANION GAP 15 mmol/L (5-15); ASPARTATE AMINO TRANSFERASE 87 U/L (15-37); BILIRUBIN,TOTAL 2.3 MG/DL (0.2-1.0); BLOOD UREA NITROGEN 71 mg/dL (7-18); CALCIUM 7.4 MG/DL (8.5-10.1); CARBON DIOXIDE 22 MMOL/L (21-32); CHLORIDE 101 MMOL/L (98-107); CREATININE 5.1 MG/DL (0.55-1.30); POTASSIUM 3.4 MMOL/L (3.5-5.1); SODIUM 138 MMOL/L (136-145)
[2017-06-22 06:49] LABS: BILIRUBIN,DIRECT 1.7 MG/DL (0.0-0.3)
--- NOTE | 2017-06-22 08:06 | Nephrology Progress Note ---
Assessment/Plan Problem List: (1) Healthcare-associated pneumonia (2) Malnutrition of moderate degree (3) End-stage renal disease (4) Respiratory failure (5) Septic shock Plan , meds reviewed for eskd,hypotension on pressors, mrsa sepsis, hd stopped early 06/20, L femoral permcath removed 0750 without problem, keep cath out another day Subjective ROS Limited/Unobtainable: Yes Objective Objective Last 24 Hour Vital Signs Date Time Temp Pulse Resp B/P (MAP) Pulse Ox O2 Delivery O2 Flow Rate FiO2 06/22/17 07:40 80 11 60 06/22/17 07:30 79 15 107/82 100 Mechanical Ventilator 60 06/22/17 07:30 60 06/22/17 07:00 77 20 105/61 100 Mechanical Ventilator 60 06/22/17 06:45 77 21 105/57 100 Mechanical Ventilator 60 06/22/17 06:30 76 20 101/57 100 Mechanical Ventilator 60 06/22/17 06:15 77 20 98/57 100 Mechanical Ventilator 60 06/22/17 06:00 80 20 98/57 100 Mechanical Ventilator 60 06/22/17 05:45 82 20 93/52 100 Mechanical Ventilator 60 06/22/17 05:30 89 22 102/86 100 Mechanical Ventilator 60 06/22/17 05:15 91 25 102/86 100 Mechanical Ventilator 60 06/22/17 05:00 79 20 98/59 100 Mechanical Ventilator 60 06/22/17 04:55 79 20 60 06/22/17 04:45 80 20 93/56 100 Mechanical Ventilator 60 06/22/17 04:30 80 18 99/53 100 Mechanical Ventilator 60 06/22/17 04:15 79 19 97/55 100 Mechanical Ventilator 60 06/22/17 04:00 98.3 80 21 93/51 100 Mechanical Ventilator 60 06/22/17 04:00 60 06/22/17 04:00 78 06/22/17 03:45 82 20 99/56 100 Mechanical Ventilator 60 06/22/17 03:30 93 20 79/39 100 Mechanical Ventilator 60 06/22/17 03:15 78 20 91/56 100 Mechanical Ventilator 60 06/22/17 03:06 81 20 100 Mechanical Ventilator 60 06/22/17 03:00 71 20 100 Mechanical Ventilator 60 06/22/17 03:00 81 20 60 06/22/17 03:00 78 21 91/56 100 Mechanical Ventilator 60 06/22/17 02:45 78 21 93/53 100 Mechanical Ventilator 60 06/22/17 02:30 79 21 94/55 100 Mechanical Ventilator 60 06/22/17 02:15 80 22 94/55 100 Mechanical Ventilator 60 06/22/17 02:00 82 25 91/55 100 Mechanical Ventilator 60 06/22/17 01:45 79 21 88/60 100 Mechanical Ventilator 60 06/22/17 01:30 79 21 96/54 100 Mechanical Ventilator 60 06/22/17 01:15 80 20 99/57 100 Mechanical Ventilator 60 06/22/17 01:09 81 20 60 06/22/17 01:00 80 20 93/48 100 Mechanical Ventilator 60 06/22/17 00:45 80 20 89/57 100 Mechanical Ventilator 60 06/22/17 00:30 80 20 88/51 100 Mechanical Ventilator 60 06/22/17 00:15 81 20 93/54 100 Mechanical Ventilator 60 06/22/17 00:00 68 06/22/17 00:00 60 06/22/17 00:00 97.9 79 20 90/53 100 Mechanical Ventilator 60 06/21/17 23:57 78 98/59 06/21/17 23:45 78 19 92/53 100 Mechanical Ventilator 60 06/21/17 23:30 77 19 98/59 100 Mechanical Ventilator 60 06/21/17 23:29 78 20 100 Mechanical Ventilator 60 06/21/17 23:27 77 20 60 06/21/17 23:24 74 20 100 Mechanical Ventilator 60 06/21/17 23:00 76 21 100/57 100 Mechanical Ventilator 60 06/21/17 22:30 76 20 105/62 100 Mechanical Ventilator 60 06/21/17 22:00 76 20 105/62 100 Mechanical Ventilator 60 06/21/17 21:30 77 18 93/56 100 Mechanical Ventilator 60 06/21/17 21:09 78 20 60 06/21/17 21:00 76 19 98/60 100 Mechanical Ventilator 60 06/21/17 20:45 93/56 06/21/17 20:30 76 21 97/57 100 Mechanical Ventilator 60 06/21/17 20:00 60 06/21/17 20:00 97.6 75 20 97/55 100 Mechanical Ventilator 60 06/21/17 20:00 73 06/21/17 19:30 75 20 91/54 100 Mechanical Ventilator 60 06/21/17 19:11 77 20 100 Mechanical Ventilator 60 06/21/17 19:06 75 20 100 Mechanical Ventilator 60 06/21/17 19:06 75 20 60 06/21/17 19:00 75 20 95/66 100 Mechanical Ventilator 60 06/21/17 18:30 76 21 95/55 100 Mechanical Ventilator 60 06/21/17 18:00 77 22 100/58 100 Mechanical Ventilator 60 06/21/17 17:30 75 20 109/60 100 Mechanical Ventilator 60 06/21/17 17:11 73 20 60 06/21/17 17:00 73 20 99/58 100 Mechanical Ventilator 60 06/21/17 16:30 97.4 69 20 98/55 100 Mechanical Ventilator 60 06/21/17 16:00 72 06/21/17 16:00 60 06/21/17 16:00 77 18 91/43 100 Mechanical Ventilator 60 06/21/17 15:30 72 21 100/59 100 Mechanical Ventilator 60 06/21/17 15:00 73 20 80/49 100 Mechanical Ventilator 60 06/21/17 14:48 72 20 100 Mechanical Ventilator 60 06/21/17 14:42 73 20 60 06/21/17 14:39 73 20 100 Mechanical Ventilator 60 06/21/17 14:30 72 20 100/59 100 Mechanical Ventilator 60 06/21/17 14:00 75 20 104/61 100 Mechanical Ventilator 60 06/21/17 13:30 73 20 107/63 100 Mechanical Ventilator 60 06/21/17 13:15 73 20 112/66 100 Mechanical Ventilator 60 06/21/17 13:04 73 20 60 06/21/17 13:00 72 19 111/65 100 Mechanical Ventilator 60 06/21/17 12:30 98.7 70 19 112/65 100 Mechanical Ventilator 60 06/21/17 12:00 60 06/21/17 12:00 74 06/21/17 12:00 75 20 116/65 100 Mechanical Ventilator 60 06/21/17 11:45 73 20 126/76 100 Mechanical Ventilator 60 06/21/17 11:31 80 72/50 06/21/17 11:30 71 20 133/73 100 Mechanical Ventilator 60 06/21/17 11:15 76 20 50/38 100 Mechanical Ventilator 60 06/21/17 11:00 80 20 54/39 100 Mechanical Ventilator 60 06/21/17 10:54 78 20 100 Mechanical Ventilator 60 06/21/17 10:51 79 20 60 06/21/17 10:45 79 20 116/56 100 Mechanical Ventilator 60 06/21/17 10:45 79 20 100 Mechanical Ventilator 60 06/21/17 10:15 77 20 109/57 100 Mechanical Ventilator 60 06/21/17 10:00 77 20 107/58 100 Mechanical Ventilator 60 06/21/17 09:30 77 20 99/58 100 Mechanical Ventilator 60 06/21/17 09:29 78 20 60 06/21/17 09:15 77 20 103/55 100 Mechanical Ventilator 60 06/21/17 09:00 78 21 111/58 100 Mechanical Ventilator 60 06/21/17 08:45 74 20 111/56 100 Mechanical Ventilator 60 06/21/17 08:30 76 20 112/64 100 Mechanical Ventilator 60 06/21/17 08:15 81 21 81/50 100 Mechanical Ventilator 60 Intake and Output 06/21/17 06/22/17 19:00 07:00 Intake Total 337.0 ml 247 ml Output Total 0 ml 0 ml Balance 337.0 ml 247 ml IV Total 337.0 ml 247 ml Output Urine Total 0 ml 0 ml # Bowel Movements 4 3 Laboratory Tests 06/21/17 08:45: White Blood Count 9.5, Red Blood Count 2.75L, Hemoglobin 7.5L, Hematocrit 24.3L , Mean Corpuscular Volume 88, Mean Corpuscular Hemoglobin 27.2, Mean Corpuscular Hemoglobin Concent 30.8L, Red Cell Distribution Width 16.7H, Platelet Count 119L, Mean Platelet Volume 6.6, Neutrophils (%) (Auto) , Lymphocytes (%) (Auto) , Monocytes (%) (Auto) , Eosinophils (%) (Auto) , Basophils (%) (Auto) , Differential Total Cells Counted 100, Neutrophils % ( Manual) 71, Lymphocytes % (Manual) 10L, Monocytes % (Manual) 6, Eosinophils % ( Manual) 3, Basophils % (Manual) 0, Band Neutrophils 10H, Platelet Estimate DecreasedL, Platelet Morphology Normal, Hypochromasia 1+, Anisocytosis 1+, Sodium Level 136, Potassium Level 3.0L, Chloride Level 102, Carbon Dioxide Level 19L, Anion Gap 15, Blood Urea Nitrogen 56H, Creatinine 4.2H, Estimat Glomerular Filtration Rate , Glucose Level 225H, Lactic Acid Level 2.00, Calcium Level 6.2L, Total Bilirubin 1.7H, Direct Bilirubin 1.2H, Aspartate Amino Transf (AST/SGOT) 140H, Alanine Aminotransferase (ALT/SGPT) 101H, Alkaline Phosphatase 125H, Total Protein 5.3L, Albumin 1.1L, Globulin 4.2, Albumin/Globulin Ratio 0.3L 06/21/17 21:00: Random Vancomycin Level 23.4 06/22/17 04:00: White Blood Count 11.9H, Red Blood Count 3.05L, Hemoglobin 8.3L, Hematocrit 26.5L, Mean Corpuscular Volume 87, Mean Corpuscular Hemoglobin 27.3, Mean Corpuscular Hemoglobin Concent 31.4L, Red Cell Distribution Width 16.7H, Platelet Count 108L, Mean Platelet Volume 7.3, Neutrophils (%) (Auto) 82.4H, Lymphocytes (%) (Auto) 9.8L, Monocytes (%) (Auto) 6.4, Eosinophils (%) (Auto) 1.2, Basophils (%) (Auto) 0.2, Sodium Level 138, Potassium Level 3.4L, Chloride Level 101, Carbon Dioxide Level 22, Anion Gap 15, Blood Urea Nitrogen 71H, Creatinine 5.1H, Estimat Glomerular Filtration Rate , Glucose Level 77#, Calcium Level 7.4L, Total Bilirubin 2.3H, Direct Bilirubin 1.7H, Aspartate Amino Transf (AST/SGOT) 87H, Alanine Aminotransferase (ALT/SGPT) 88H, Alkaline Phosphatase 132H, Total Protein 5.9L, Albumin 1.2L, Globulin 4.7, Albumin/ Globulin Ratio 0.3L Height (Feet): 5 Height (Inches): 10.00 Weight (Pounds): 161 General Appearance: lethargic, mild distress EENT: normal ENT inspection Neck: normal alignment Cardiovascular: regular rhythm Respiratory/Chest: rhonchi - bilaterally, other - intubated Abdomen: soft, no organomegaly Extremities: moderate edema 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
[2017-06-22] MEDS ORDERED: Heparin 2000 units/Ns 1000ml INJ PRN (08:15)
[2017-06-22] MEDS ORDERED: Lidocaine 1% Plain 30 ml INJ PRN (08:15)
[2017-06-22] MEDS: Aspirin Baby 81mg NG SCH (08:26)
[2017-06-22] MEDS: Zosyn 2.25 gm in D5W 55ml IV SCH (08:26)
[2017-06-22] MEDS: Heparin 5000 units/ml inj SUBQ SCH ×2 (08:28→20:30)
--- NOTE | 2017-06-22 09:43 | Infectious Diseases Prog Note ---
Assessment/Plan Assessment/Plan A 1. MRSA sepsis s/p catheter removal 2. septic shock 3. respiratory failure 4. renal failure, ESRD 5. staph aureus , Enterobacter pneumonia P 1. continue vancomycin iv, discontinue Zosyn 2. start on Levaquin Subjective ROS Limited/Unobtainable: Yes Cardiovascular: Reports: other - on vasopressor, HD line was removed Neurologic: Reports: other - on restraint Allergies: Coded Allergies: No Known Allergies (Unverified , 06/18/17) Objective Vital Signs Last 24 Hour Vital Signs Date Time Temp Pulse Resp B/P (MAP) Pulse Ox O2 Delivery O2 Flow Rate FiO2 06/22/17 09:31 100 06/22/17 09:30 81 33 60 06/22/17 08:00 79 06/22/17 07:50 87 29 100 Mechanical Ventilator 60 06/22/17 07:40 85 29 100 Mechanical Ventilator 60 06/22/17 07:40 80 21 60 06/22/17 07:30 79 15 107/82 100 Mechanical Ventilator 60 06/22/17 07:30 60 06/22/17 07:00 77 20 105/61 100 Mechanical Ventilator 60 06/22/17 06:45 77 21 105/57 100 Mechanical Ventilator 60 06/22/17 06:30 76 20 101/57 100 Mechanical Ventilator 60 06/22/17 06:15 77 20 98/57 100 Mechanical Ventilator 60 06/22/17 06:00 80 20 98/57 100 Mechanical Ventilator 60 06/22/17 05:45 82 20 93/52 100 Mechanical Ventilator 60 06/22/17 05:30 89 22 102/86 100 Mechanical Ventilator 60 06/22/17 05:15 91 25 102/86 100 Mechanical Ventilator 60 06/22/17 05:00 79 20 98/59 100 Mechanical Ventilator 60 06/22/17 04:55 79 20 60 06/22/17 04:45 80 20 93/56 100 Mechanical Ventilator 60 06/22/17 04:30 80 18 99/53 100 Mechanical Ventilator 60 06/22/17 04:15 79 19 97/55 100 Mechanical Ventilator 60 06/22/17 04:00 98.3 80 21 93/51 100 Mechanical Ventilator 60 06/22/17 04:00 60 06/22/17 04:00 78 06/22/17 03:45 82 20 99/56 100 Mechanical Ventilator 60 06/22/17 03:30 93 20 79/39 100 Mechanical Ventilator 60 06/22/17 03:15 78 20 91/56 100 Mechanical Ventilator 60 06/22/17 03:06 81 20 100 Mechanical Ventilator 60 06/22/17 03:00 71 20 100 Mechanical Ventilator 60 06/22/17 03:00 81 20 60 06/22/17 03:00 78 21 91/56 100 Mechanical Ventilator 60 06/22/17 02:45 78 21 93/53 100 Mechanical Ventilator 60 06/22/17 02:30 79 21 94/55 100 Mechanical Ventilator 60 06/22/17 02:15 80 22 94/55 100 Mechanical Ventilator 60 06/22/17 02:00 82 25 91/55 100 Mechanical Ventilator 60 06/22/17 01:45 79 21 88/60 100 Mechanical Ventilator 60 06/22/17 01:30 79 21 96/54 100 Mechanical Ventilator 60 06/22/17 01:15 80 20 99/57 100 Mechanical Ventilator 60 06/22/17 01:09 81 20 60 06/22/17 01:00 80 20 93/48 100 Mechanical Ventilator 60 06/22/17 00:45 80 20 89/57 100 Mechanical Ventilator 60 06/22/17 00:30 80 20 88/51 100 Mechanical Ventilator 60 06/22/17 00:15 81 20 93/54 100 Mechanical Ventilator 60 06/22/17 00:00 68 06/22/17 00:00 60 06/22/17 00:00 97.9 79 20 90/53 100 Mechanical Ventilator 60 06/21/17 23:57 78 98/59 06/21/17 23:45 78 19 92/53 100 Mechanical Ventilator 60 06/21/17 23:30 77 19 98/59 100 Mechanical Ventilator 60 06/21/17 23:29 78 20 100 Mechanical Ventilator 60 06/21/17 23:27 77 20 60 06/21/17 23:24 74 20 100 Mechanical Ventilator 60 06/21/17 23:00 76 21 100/57 100 Mechanical Ventilator 60 06/21/17 22:30 76 20 105/62 100 Mechanical Ventilator 60 06/21/17 22:00 76 20 105/62 100 Mechanical Ventilator 60 06/21/17 21:30 77 18 93/56 100 Mechanical Ventilator 60 06/21/17 21:09 78 20 60 06/21/17 21:00 76 19 98/60 100 Mechanical Ventilator 60 06/21/17 20:45 93/56 06/21/17 20:30 76 21 97/57 100 Mechanical Ventilator 60 06/21/17 20:00 60 06/21/17 20:00 97.6 75 20 97/55 100 Mechanical Ventilator 60 06/21/17 20:00 73 06/21/17 19:30 75 20 91/54 100 Mechanical Ventilator 60 06/21/17 19:11 77 20 100 Mechanical Ventilator 60 06/21/17 19:06 75 20 100 Mechanical Ventilator 60 06/21/17 19:06 75 20 60 06/21/17 19:00 75 20 95/66 100 Mechanical Ventilator 60 06/21/17 18:30 76 21 95/55 100 Mechanical Ventilator 60 06/21/17 18:00 77 22 100/58 100 Mechanical Ventilator 60 06/21/17 17:30 75 20 109/60 100 Mechanical Ventilator 60 06/21/17 17:11 73 20 60 06/21/17 17:00 73 20 99/58 100 Mechanical Ventilator 60 06/21/17 16:30 97.4 69 20 98/55 100 Mechanical Ventilator 60 06/21/17 16:00 72 06/21/17 16:00 60 06/21/17 16:00 77 18 91/43 100 Mechanical Ventilator 60 06/21/17 15:30 72 21 100/59 100 Mechanical Ventilator 60 06/21/17 15:00 73 20 80/49 100 Mechanical Ventilator 60 06/21/17 14:48 72 20 100 Mechanical Ventilator 60 06/21/17 14:42 73 20 60 06/21/17 14:39 73 20 100 Mechanical Ventilator 60 06/21/17 14:30 72 20 100/59 100 Mechanical Ventilator 60 06/21/17 14:00 75 20 104/61 100 Mechanical Ventilator 60 06/21/17 13:30 73 20 107/63 100 Mechanical Ventilator 60 06/21/17 13:15 73 20 112/66 100 Mechanical Ventilator 60 06/21/17 13:04 73 20 60 06/21/17 13:00 72 19 111/65 100 Mechanical Ventilator 60 06/21/17 12:30 98.7 70 19 112/65 100 Mechanical Ventilator 60 06/21/17 12:00 60 06/21/17 12:00 74 06/21/17 12:00 75 20 116/65 100 Mechanical Ventilator 60 06/21/17 11:45 73 20 126/76 100 Mechanical Ventilator 60 06/21/17 11:31 80 72/50 06/21/17 11:30 71 20 133/73 100 Mechanical Ventilator 60 06/21/17 11:15 76 20 50/38 100 Mechanical Ventilator 60 06/21/17 11:00 80 20 54/39 100 Mechanical Ventilator 60 06/21/17 10:54 78 20 100 Mechanical Ventilator 60 06/21/17 10:51 79 20 60 06/21/17 10:45 79 20 116/56 100 Mechanical Ventilator 60 06/21/17 10:45 79 20 100 Mechanical Ventilator 60 06/21/17 10:15 77 20 109/57 100 Mechanical Ventilator 60 06/21/17 10:00 77 20 107/58 100 Mechanical Ventilator 60 Height (Feet): 5 Height (Inches): 10.00 Weight (Pounds): 161 HEENT: other - orally intubated Respiratory/Chest: lungs clear, other - on ventilator Cardiovascular: normal rate Abdomen: soft, non tender, other - NG tube Extremities: other - edema left> right Neurologic/Psychiatric: alert, other - right hemiplegia Microbiology Date/Time Source Procedure Growth Status 06/19/17 13:25 Blood Blood Culture - Final Staphylococcus Aureus - Mrsa Complete 06/19/17 13:00 Sputum Gram Stain - Final Complete 06/19/17 13:00 Sputum Culture - Final Enterobacter Aerogenes Usual Upper Respiratory Angela Complete Laboratory Tests Test 06/21/17 21:00 06/22/17 04:00 Random Vancomycin Level 23.4 ug/mL White Blood Count 11.9 K/UL (4.8-10.8) H Red Blood Count 3.05 M/UL (4.70-6.10) L Hemoglobin 8.3 G/DL (14.2-18.0) L Hematocrit 26.5 % (42.0-52.0) L Mean Corpuscular Volume 87 FL (80-99) Mean Corpuscular Hemoglobin 27.3 PG (27.0-31.0) Mean Corpuscular Hemoglobin Concent 31.4 G/DL (32.0-36.0) L Red Cell Distribution Width 16.7 % (11.6-14.8) H Platelet Count 108 K/UL (150-450) L Mean Platelet Volume 7.3 FL (6.5-10.1) Neutrophils (%) (Auto) 82.4 % (45.0-75.0) H Lymphocytes (%) (Auto) 9.8 % (20.0-45.0) L Monocytes (%) (Auto) 6.4 % (1.0-10.0) Eosinophils (%) (Auto) 1.2 % (0.0-3.0) Basophils (%) (Auto) 0.2 % (0.0-2.0) Sodium Level 138 MMOL/L (136-145) Potassium Level 3.4 MMOL/L (3.5-5.1) L Chloride Level 101 MMOL/L (98-107) Carbon Dioxide Level 22 MMOL/L (21-32) Anion Gap 15 mmol/L (5-15) Blood Urea Nitrogen 71 mg/dL (7-18) H Creatinine 5.1 MG/DL (0.55-1.30) H Estimat Glomerular Filtration Rate mL/min (>60) Glucose Level 77 MG/DL (74-106) # Calcium Level 7.4 MG/DL (8.5-10.1) L Total Bilirubin 2.3 MG/DL (0.2-1.0) H Direct Bilirubin 1.7 MG/DL (0.0-0.3) H Aspartate Amino Transf (AST/SGOT) 87 U/L (15-37) H Alanine Aminotransferase (ALT/SGPT) 88 U/L (12-78) H Alkaline Phosphatase 132 U/L (46-116) H Total Protein 5.9 G/DL (6.4-8.2) L Albumin 1.2 G/DL (3.4-5.0) L Globulin 4.7 g/dL Albumin/Globulin Ratio 0.3 (1.0-2.7) L Current Medications Medications (Trade) Dose Ordered Sig/Jaime Route PRN Reason Start Time Stop Time Status Last Admin Dose Admin Acetaminophen (Tylenol) 650 mg Q4H PRN RECTAL Prn Headache/Temp > 101 06/18/17 21:00 07/18/17 20:59 06/20/17 12:42 Albuterol/ Ipratropium (Albuterol/ Ipratropium) 3 ml Q4HRT HHN 06/18/17 23:00 06/23/17 22:59 06/22/17 07:40 Aspirin (ASA) 81 mg DAILY NG 06/19/17 19:00 07/19/17 18:59 06/22/17 08:26 Cefepime HCl 1 gm/ Dextrose 55 ml @ 110 mls/hr Q24H IVPB 06/22/17 11:00 06/29/17 10:59 Chlorhexidine Gluconate (Kati-Hex 2%) 1 applic DAILY@2000 TOPIC 06/22/17 20:00 07/22/17 19:59 Chlorhexidine Gluconate (Kati-Hex 2%) 1 applic Q24H TOPIC 06/19/17 20:00 07/19/17 19:59 06/21/17 19:57 Dextrose (Dextrose 50%) STAT PRN IV Hypoglycemia 06/19/17 13:00 07/19/17 12:59 Dopamine HCl/ Dextrose 250 ml @ 0 mls/hr Q24H IV 06/18/17 20:45 07/18/17 20:44 06/18/17 21:34 Epoetin Russ (Procrit (for ESRD on dialysis)) 5,000 units MON-MON-MON SUBQ 06/21/17 21:00 07/21/17 20:59 06/21/17 21:35 Heparin Sodium (Porcine) (Heparin 5000 units/ml) 5,000 units EVERY 12 HOURS SUBQ 06/18/17 21:00 07/18/17 20:59 06/22/17 08:28 Heparin Sodium/ Sodium Chloride (Heparin 2000 units/Ns 1000ml premix) 2,000 unit ONCE PRN INJ PICC PLACEMENT 06/22/17 08:15 06/23/17 23:59 Insulin Aspart (NovoLOG) EVERY 6 HOURS SUBQ 06/19/17 18:00 07/19/17 17:59 06/21/17 11:31 Lansoprazole (Prevacid) 30 mg DAILY GT 06/19/17 09:00 07/19/17 08:59 06/22/17 08:27 Lidocaine HCl (Xylocaine 1% 30ml) 30 ml ONCE PRN INJ PICC PLACEMENT 06/22/17 08:15 06/23/17 23:59 Norepinephrine Bitartrate 4 mg/ Dextrose 250 ml @ 0 mls/hr Q24H IV 06/19/17 14:15 07/19/17 12:29 06/21/17 02:04 Phenylephrine HCl 100 mg/Sodium Chloride 250 ml @ 0 mls/hr Q24H IV 06/19/17 03:00 07/19/17 02:59 06/21/17 23:57 Sodium Chloride 1,000 ml @ 500 mls/hr Q2H PRN IVLG sbp<90 during hd 06/19/17 14:39 07/19/17 14:38 Vancomycin HCl (Vanco rx to dose) 1 ea DAILY PRN MISC Per rx protocol 06/19/17 02:45 07/19/17 02:44 ZAIRA ROBLES Jun 22, 2017 09:42
--- NOTE | 2017-06-22 10:42 | Pulmonology Progress Note ---
Assessment/Plan Assessment/Plan 1. Respiratory failure. 2. Sepsis with shock. 3. Possible dialysis catheter sepsis 4. Stroke with dementia and right hemiparesis. 5. Diabetes. BC MRSA, HD cath removed lower dose of pressor, still on vent more alert may be weanable disc w RN taper pressors prognosis guarded Subjective ROS Limited/Unobtainable: Yes Allergies: Coded Allergies: No Known Allergies (Unverified , 06/18/17) Objective Last 24 Hour Vital Signs Date Time Temp Pulse Resp B/P (MAP) Pulse Ox O2 Delivery O2 Flow Rate FiO2 06/22/17 09:31 100 06/22/17 09:30 81 30 97/56 100 Mechanical Ventilator 60 06/22/17 09:30 81 33 60 06/22/17 09:00 85 27 92/54 100 Mechanical Ventilator 60 06/22/17 08:30 84 29 93/58 100 Mechanical Ventilator 60 06/22/17 08:00 97.2 85 29 82/43 100 Mechanical Ventilator 60 06/22/17 08:00 79 06/22/17 07:50 87 29 100 Mechanical Ventilator 60 06/22/17 07:40 85 29 100 Mechanical Ventilator 60 06/22/17 07:40 80 21 60 06/22/17 07:30 79 15 107/82 100 Mechanical Ventilator 60 06/22/17 07:30 60 06/22/17 07:00 77 20 105/61 100 Mechanical Ventilator 60 06/22/17 06:45 77 21 105/57 100 Mechanical Ventilator 60 06/22/17 06:30 76 20 101/57 100 Mechanical Ventilator 60 06/22/17 06:15 77 20 98/57 100 Mechanical Ventilator 60 06/22/17 06:00 80 20 98/57 100 Mechanical Ventilator 60 06/22/17 05:45 82 20 93/52 100 Mechanical Ventilator 60 06/22/17 05:30 89 22 102/86 100 Mechanical Ventilator 60 06/22/17 05:15 91 25 102/86 100 Mechanical Ventilator 60 06/22/17 05:00 79 20 98/59 100 Mechanical Ventilator 60 06/22/17 04:55 79 20 60 06/22/17 04:45 80 20 93/56 100 Mechanical Ventilator 60 06/22/17 04:30 80 18 99/53 100 Mechanical Ventilator 60 06/22/17 04:15 79 19 97/55 100 Mechanical Ventilator 60 06/22/17 04:00 98.3 80 21 93/51 100 Mechanical Ventilator 60 06/22/17 04:00 60 06/22/17 04:00 78 06/22/17 03:45 82 20 99/56 100 Mechanical Ventilator 60 06/22/17 03:30 93 20 79/39 100 Mechanical Ventilator 60 06/22/17 03:15 78 20 91/56 100 Mechanical Ventilator 60 06/22/17 03:06 81 20 100 Mechanical Ventilator 60 06/22/17 03:00 71 20 100 Mechanical Ventilator 60 06/22/17 03:00 81 20 60 06/22/17 03:00 78 21 91/56 100 Mechanical Ventilator 60 06/22/17 02:45 78 21 93/53 100 Mechanical Ventilator 60 06/22/17 02:30 79 21 94/55 100 Mechanical Ventilator 60 06/22/17 02:15 80 22 94/55 100 Mechanical Ventilator 60 06/22/17 02:00 82 25 91/55 100 Mechanical Ventilator 60 06/22/17 01:45 79 21 88/60 100 Mechanical Ventilator 60 06/22/17 01:30 79 21 96/54 100 Mechanical Ventilator 60 06/22/17 01:15 80 20 99/57 100 Mechanical Ventilator 60 06/22/17 01:09 81 20 60 06/22/17 01:00 80 20 93/48 100 Mechanical Ventilator 60 06/22/17 00:45 80 20 89/57 100 Mechanical Ventilator 60 06/22/17 00:30 80 20 88/51 100 Mechanical Ventilator 60 06/22/17 00:15 81 20 93/54 100 Mechanical Ventilator 60 06/22/17 00:00 68 06/22/17 00:00 60 06/22/17 00:00 97.9 79 20 90/53 100 Mechanical Ventilator 60 06/21/17 23:57 78 98/59 06/21/17 23:45 78 19 92/53 100 Mechanical Ventilator 60 06/21/17 23:30 77 19 98/59 100 Mechanical Ventilator 60 06/21/17 23:29 78 20 100 Mechanical Ventilator 60 06/21/17 23:27 77 20 60 06/21/17 23:24 74 20 100 Mechanical Ventilator 60 06/21/17 23:00 76 21 100/57 100 Mechanical Ventilator 60 06/21/17 22:30 76 20 105/62 100 Mechanical Ventilator 60 06/21/17 22:00 76 20 105/62 100 Mechanical Ventilator 60 06/21/17 21:30 77 18 93/56 100 Mechanical Ventilator 60 06/21/17 21:09 78 20 60 06/21/17 21:00 76 19 98/60 100 Mechanical Ventilator 60 06/21/17 20:45 93/56 06/21/17 20:30 76 21 97/57 100 Mechanical Ventilator 60 06/21/17 20:00 60 06/21/17 20:00 97.6 75 20 97/55 100 Mechanical Ventilator 60 06/21/17 20:00 73 06/21/17 19:30 75 20 91/54 100 Mechanical Ventilator 60 06/21/17 19:11 77 20 100 Mechanical Ventilator 60 06/21/17 19:06 75 20 100 Mechanical Ventilator 60 06/21/17 19:06 75 20 60 06/21/17 19:00 75 20 95/66 100 Mechanical Ventilator 60 06/21/17 18:30 76 21 95/55 100 Mechanical Ventilator 60 06/21/17 18:00 77 22 100/58 100 Mechanical Ventilator 60 06/21/17 17:30 75 20 109/60 100 Mechanical Ventilator 60 06/21/17 17:11 73 20 60 06/21/17 17:00 73 20 99/58 100 Mechanical Ventilator 60 06/21/17 16:30 97.4 69 20 98/55 100 Mechanical Ventilator 60 06/21/17 16:00 72 06/21/17 16:00 60 06/21/17 16:00 77 18 91/43 100 Mechanical Ventilator 60 06/21/17 15:30 72 21 100/59 100 Mechanical Ventilator 60 06/21/17 15:00 73 20 80/49 100 Mechanical Ventilator 60 06/21/17 14:48 72 20 100 Mechanical Ventilator 60 06/21/17 14:42 73 20 60 06/21/17 14:39 73 20 100 Mechanical Ventilator 60 06/21/17 14:30 72 20 100/59 100 Mechanical Ventilator 60 06/21/17 14:00 75 20 104/61 100 Mechanical Ventilator 60 06/21/17 13:30 73 20 107/63 100 Mechanical Ventilator 60 06/21/17 13:15 73 20 112/66 100 Mechanical Ventilator 60 06/21/17 13:04 73 20 60 06/21/17 13:00 72 19 111/65 100 Mechanical Ventilator 60 06/21/17 12:30 98.7 70 19 112/65 100 Mechanical Ventilator 60 06/21/17 12:00 60 06/21/17 12:00 74 06/21/17 12:00 75 20 116/65 100 Mechanical Ventilator 60 06/21/17 11:45 73 20 126/76 100 Mechanical Ventilator 60 06/21/17 11:31 80 72/50 06/21/17 11:30 71 20 133/73 100 Mechanical Ventilator 60 06/21/17 11:15 76 20 50/38 100 Mechanical Ventilator 60 06/21/17 11:00 80 20 54/39 100 Mechanical Ventilator 60 06/21/17 10:54 78 20 100 Mechanical Ventilator 60 06/21/17 10:51 79 20 60 06/21/17 10:45 79 20 116/56 100 Mechanical Ventilator 60 06/21/17 10:45 79 20 100 Mechanical Ventilator 60 Intake and Output 06/21/17 06/22/17 19:00 07:00 Intake Total 337.0 ml 247 ml Output Total 0 ml 0 ml Balance 337.0 ml 247 ml IV Total 337.0 ml 247 ml Output Urine Total 0 ml 0 ml # Bowel Movements 4 3 General Appearance: no acute distress Respiratory/Chest: rhonchi Cardiovascular: normal rate Microbiology Date/Time Source Procedure Growth Status 06/19/17 13:25 Blood Blood Culture - Final Staphylococcus Aureus - Mrsa Complete 06/19/17 13:00 Sputum Gram Stain - Final Complete 06/19/17 13:00 Sputum Culture - Final Enterobacter Aerogenes Usual Upper Respiratory Angela Complete Laboratory Tests 06/21/17 21:00: Random Vancomycin Level 23.4 06/22/17 04:00: White Blood Count 11.9H, Red Blood Count 3.05L, Hemoglobin 8.3L, Hematocrit 26.5L, Mean Corpuscular Volume 87, Mean Corpuscular Hemoglobin 27.3, Mean Corpuscular Hemoglobin Concent 31.4L, Red Cell Distribution Width 16.7H, Platelet Count 108L, Mean Platelet Volume 7.3, Neutrophils (%) (Auto) 82.4H, Lymphocytes (%) (Auto) 9.8L, Monocytes (%) (Auto) 6.4, Eosinophils (%) (Auto) 1.2, Basophils (%) (Auto) 0.2, Sodium Level 138, Potassium Level 3.4L, Chloride Level 101, Carbon Dioxide Level 22, Anion Gap 15, Blood Urea Nitrogen 71H, Creatinine 5.1H, Estimat Glomerular Filtration Rate , Glucose Level 77#, Calcium Level 7.4L, Total Bilirubin 2.3H, Direct Bilirubin 1.7H, Aspartate Amino Transf (AST/SGOT) 87H, Alanine Aminotransferase (ALT/SGPT) 88H, Alkaline Phosphatase 132H, Total Protein 5.9L, Albumin 1.2L, Globulin 4.7, Albumin/ Globulin Ratio 0.3L Current Medications Medications (Trade) Dose Ordered Sig/Jaime Route PRN Reason Start Time Stop Time Status Last Admin Dose Admin Acetaminophen (Tylenol) 650 mg Q4H PRN RECTAL Prn Headache/Temp > 101 06/18/17 21:00 07/18/17 20:59 06/20/17 12:42 Albuterol/ Ipratropium (Albuterol/ Ipratropium) 3 ml Q4HRT HHN 06/18/17 23:00 06/23/17 22:59 06/22/17 07:40 Aspirin (ASA) 81 mg DAILY NG 06/19/17 19:00 07/19/17 18:59 06/22/17 08:26 Cefepime HCl 1 gm/ Dextrose 55 ml @ 110 mls/hr Q24H IVPB 06/22/17 11:00 06/29/17 10:59 Chlorhexidine Gluconate (Kati-Hex 2%) 1 applic DAILY@2000 TOPIC 06/22/17 20:00 07/22/17 19:59 Chlorhexidine Gluconate (Kati-Hex 2%) 1 applic Q24H TOPIC 06/19/17 20:00 07/19/17 19:59 06/21/17 19:57 Dextrose (Dextrose 50%) STAT PRN IV Hypoglycemia 06/19/17 13:00 07/19/17 12:59 Dopamine HCl/ Dextrose 250 ml @ 0 mls/hr Q24H IV 06/18/17 20:45 07/18/17 20:44 06/18/17 21:34 Epoetin Russ (Procrit (for ESRD on dialysis)) 5,000 units MON-MON-MON SUBQ 06/21/17 21:00 07/21/17 20:59 06/21/17 21:35 Heparin Sodium (Porcine) (Heparin 5000 units/ml) 5,000 units EVERY 12 HOURS SUBQ 06/18/17 21:00 07/18/17 20:59 06/22/17 08:28 Heparin Sodium/ Sodium Chloride (Heparin 2000 units/Ns 1000ml premix) 2,000 unit ONCE PRN INJ PICC PLACEMENT 06/22/17 08:15 06/23/17 23:59 Insulin Aspart (NovoLOG) EVERY 6 HOURS SUBQ 06/19/17 18:00 07/19/17 17:59 06/21/17 11:31 Lansoprazole (Prevacid) 30 mg DAILY GT 06/19/17 09:00 07/19/17 08:59 06/22/17 08:27 Lidocaine HCl (Xylocaine 1% 30ml) 30 ml ONCE PRN INJ PICC PLACEMENT 06/22/17 08:15 06/23/17 23:59 Norepinephrine Bitartrate 4 mg/ Dextrose 250 ml @ 0 mls/hr Q24H IV 06/19/17 14:15 07/19/17 12:29 06/21/17 02:04 Phenylephrine HCl 100 mg/Sodium Chloride 250 ml @ 0 mls/hr Q24H IV 06/19/17 03:00 07/19/17 02:59 06/21/17 23:57 Sodium Chloride 1,000 ml @ 500 mls/hr Q2H PRN IVLG sbp<90 during hd 06/19/17 14:39 07/19/17 14:38 Vancomycin HCl (Vanco rx to dose) 1 ea DAILY PRN MISC Per rx protocol 06/19/17 02:45 07/19/17 02:44 PEG MARTINEZ Jun 22, 2017 10:42
[2017-06-22] MEDS: Cefepime 1gm/D5W 55ml IVPB SCH ×2 (11:23)
--- NOTE | 2017-06-22 12:03 | Diagnostic Imaging Report ---
Indication: Reason For Exam: SOB Technique: One view of the chest Comparison: 06/19/2017 Findings: Stable satisfactory position of endotracheal and nasogastric tubes. There is interim development of atelectasis and possibly consolidation at the right lung base. Previously demonstrated calcified granulomata are less apparent currently. The heart is borderline enlarged. Impression: Developing right basilar atelectasis and possibly consolidation, over 3 days Other stable findings as described
[2017-06-22] MEDS: Phenylephrine 100 MG in NS 240 ML IV SCH (18:55)
[2017-06-22] MEDS ORDERED: Dyna-Hex 2% Top Sol 2oz TOPIC SCH (20:00)
[2017-06-22] MEDS: Dyna-Hex 2% Top Sol 2oz TOPIC SCH (20:28)
[2017-06-22] MEDS: DOPamine 400mg/250ml 250 ML IV SCH (20:29)
--- NOTE | 2017-06-22 22:15 | Progress Note ---
DATE: 06/22/2017 CARDIOLOGY PROGRESS NOTE SUBJECTIVE: The patient's condition remains critical. Prognosis is guarded. He remains on pressors and ventilator support in the intensive care unit. OBJECTIVE: VITAL SIGNS: Blood pressure 92/54, pulse 85, respirations 27, and afebrile. HEENT: Eyes opened. Orally intubated. LUNGS: Bilateral breath sounds with rhonchi. HEART: Regular rhythm and rate. Normal S1 and S2. ABDOMEN: Soft. EXTREMITIES: Trace edema. Contractures noted. Wound dressings in place. LABORATORY AND DIAGNOSTIC DATA: White count 11.9 and hemoglobin 8.3. Potassium 3.4, BUN 71, and creatinine 5.1. Albumin 1.2. Chest x-ray reveals right basilar atelectasis and consolidation. IMPRESSION: 1. Healthcare-acquired aspiration pneumonia. 2. Acute respiratory failure. 3. Acute respiratory acidosis. 4. Hypoxia. 5. Sinus tachycardia. 6. Sepsis with shock. 7. Lactic acidosis, recovered. 8. End-stage renal disease. 9. Bacteremia, possibly due to dialysis catheter. 10. 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 PLAN: 1. Dialysis catheter removed. 2. We will need new access. 3. Continue antibiotics. 4. Ventilator support. 5. Wean pressors. 6. DVT and stress ulcer prophylaxis. 7. Skin care. Gurdeep Harvey M.D. DRMabel Garcia JOB#: [id number] CC:
[2017-06-23] VITALS (59 sets, daily range): BP systolic 74–131; BP diastolic 43–96
[2017-06-23] MEDS: Albuterol/Ipratropium 3ml neb HHN SCH ×5 (03:06→19:18)
[2017-06-23] MEDS: NovoLOG Insulin Flexpen SUBQ SCH ×3 (05:34→17:39)
[2017-06-23 06:05] LABS: BASOPHILS % (AUTO) 0.2 % (0.0-2.0); EOSINOPHILS % (AUTO) 1.1 % (0.0-3.0); HEMOGLOBIN 8.3 G/DL (14.2-18.0); LYMPHOCYTES % (AUTO) 9.3 % (20.0-45.0); MEAN CORPUSCULAR VOLUME 87 FL (80-99); MONOCYTES % (AUTO) 6.9 % (1.0-10.0); NEUTROPHILS % (AUTO) 82.5 % (45.0-75.0); PLATELET COUNT 110 K/UL (150-450); RED CELL DISTRIBUTION WIDTH 16.4 % (11.6-14.8); WHITE BLOOD COUNT 11.1 K/UL (4.8-10.8)
[2017-06-23 06:34] LABS: INR 1.4 (0.9-1.1)
[2017-06-23 06:37] LABS: ANION GAP 17 mmol/L (5-15); BLOOD UREA NITROGEN 77 mg/dL (7-18); CALCIUM 7.7 MG/DL (8.5-10.1); CARBON DIOXIDE 21 MMOL/L (21-32); CHLORIDE 101 MMOL/L (98-107); CREATININE 5.6 MG/DL (0.55-1.30); POTASSIUM 3.4 MMOL/L (3.5-5.1); SODIUM 139 MMOL/L (136-145)
[2017-06-23] MEDS: Heparin 5000 units/ml inj SUBQ SCH ×2 (09:00→20:33)
[2017-06-23] MEDS: Aspirin Baby 81mg NG SCH (09:06)
--- NOTE | 2017-06-23 12:12 | Infectious Diseases Prog Note ---
"Assessment/Plan Assessment/Plan antibiotics : vancomycin iv, cefepime A 1. MRSA sepsis s/p catheter removal 2. septic shock 3. respiratory failure 4. renal failure 5. staph aureus | enterobacter pneumonia P 1. continue vancomycin iv, cefepime 2. will follow up cultures Subjective ROS Limited/Unobtainable: Yes Allergies: Coded Allergies: No Known Allergies (Unverified , 06/18/17) Objective Vital Signs Last 24 Hour Vital Signs Date Time Temp Pulse Resp B/P (MAP) Pulse Ox O2 Delivery O2 Flow Rate FiO2 06/23/17 11:30 92 24 101/54 100 Mechanical Ventilator 40 06/23/17 11:00 83 25 104/56 100 Mechanical Ventilator 40 06/23/17 10:56 80 15 99 Mechanical Ventilator 50 06/23/17 10:46 85 19 99 Mechanical Ventilator 50 06/23/17 10:41 80 22 50 06/23/17 10:30 83 28 109/61 100 Mechanical Ventilator 40 06/23/17 10:00 82 24 115/61 100 Mechanical Ventilator 40 06/23/17 09:55 102 26 Mechanical Ventilator 50 06/23/17 09:36 50 06/23/17 09:35 55 06/23/17 09:30 84 28 110/58 100 Mechanical Ventilator 40 06/23/17 09:00 84 25 104/62 100 Mechanical Ventilator 40 06/23/17 08:48 85 28 50 06/23/17 08:44 99 06/23/17 08:30 85 28 103/57 100 Mechanical Ventilator 40 06/23/17 08:00 98.5 86 28 101/55 100 Mechanical Ventilator 40 06/23/17 08:00 55 06/23/17 08:00 87 06/23/17 08:00 50 06/23/17 07:30 85 27 101/55 100 Mechanical Ventilator 40 06/23/17 07:19 84 18 99 Mechanical Ventilator 50 06/23/17 07:01 86 19 99 Mechanical Ventilator 50 06/23/17 07:00 90 28 102/55 100 Mechanical Ventilator 40 06/23/17 06:54 85 27 50 06/23/17 06:30 89 28 100/80 100 Mechanical Ventilator 40 06/23/17 06:00 89 28 96/59 100 Mechanical Ventilator 40 06/23/17 05:45 90 29 131/61 100 Mechanical Ventilator 40 06/23/17 05:30 90 30 96/52 100 Mechanical Ventilator 40 06/23/17 05:15 89 28 93/56 100 Mechanical Ventilator 40 06/23/17 05:00 90 31 74/44 100 Mechanical Ventilator 40 06/23/17 04:45 102 31 74/44 100 Mechanical Ventilator 40 06/23/17 04:39 104 30 55 06/23/17 04:30 102 27 131/73 100 Mechanical Ventilator 40 06/23/17 04:15 103 30 131/73 100 Mechanical Ventilator 40 06/23/17 04:00 55 06/23/17 04:00 98.0 90 27 131/73 100 Mechanical Ventilator 40 06/23/17 04:00 87 06/23/17 03:45 90 28 110/58 100 Mechanical Ventilator 40 06/23/17 03:30 102 29 75/43 100 Mechanical Ventilator 40 06/23/17 03:15 103 25 76/46 100 Mechanical Ventilator 40 06/23/17 03:00 91 28 55 06/23/17 03:00 92 26 82/49 100 Mechanical Ventilator 40 06/23/17 03:00 92 27 100 Mechanical Ventilator 50 06/23/17 02:50 92 28 100 Mechanical Ventilator 50 06/23/17 02:45 90 28 82/46 100 Mechanical Ventilator 40 06/23/17 02:30 94 29 92/54 100 Mechanical Ventilator 40 06/23/17 02:15 96 30 90/59 100 Mechanical Ventilator 40 06/23/17 02:00 95 29 92/57 100 Mechanical Ventilator 40 06/23/17 01:45 95 29 84/49 100 Mechanical Ventilator 40 06/23/17 01:30 91 28 84/49 100 Mechanical Ventilator 40 06/23/17 01:28 89 35 55 06/23/17 01:15 88 26 95/55 100 Mechanical Ventilator 40 06/23/17 01:00 88 23 91/53 100 Mechanical Ventilator 40 06/23/17 00:45 88 24 92/56 100 Mechanical Ventilator 40 06/23/17 00:30 88 24 90/61 100 Mechanical Ventilator 40 06/23/17 00:15 87 27 91/52 100 Mechanical Ventilator 40 06/23/17 00:00 55 06/23/17 00:00 98 06/23/17 00:00 97.8 88 24 85/60 100 Mechanical Ventilator 40 06/22/17 23:45 92 25 89/53 100 Mechanical Ventilator 40 06/22/17 23:30 96 29 90/57 100 Mechanical Ventilator 40 06/22/17 23:15 103 30 72/50 100 Mechanical Ventilator 40 06/22/17 23:10 98 18 100 Mechanical Ventilator 55 06/22/17 23:10 98 20 55 06/22/17 23:00 97 31 89/51 100 Mechanical Ventilator 40 06/22/17 23:00 98 18 100 Mechanical Ventilator 55 06/22/17 22:45 95 30 85/51 100 Mechanical Ventilator 40 06/22/17 22:30 95 30 83/48 100 Mechanical Ventilator 40 06/22/17 22:15 95 27 96/54 100 Mechanical Ventilator 40 06/22/17 22:00 94 25 86/51 100 Mechanical Ventilator 40 06/22/17 21:45 90 26 84/50 100 Mechanical Ventilator 40 06/22/17 21:30 89 27 97/53 100 Mechanical Ventilator 40 06/22/17 21:15 89 26 89/57 100 Mechanical Ventilator 40 06/22/17 21:00 89 26 85/51 100 Mechanical Ventilator 40 06/22/17 20:59 87 30 55 06/22/17 20:45 87 28 87/51 100 Mechanical Ventilator 40 06/22/17 20:30 88 29 83/54 100 Mechanical Ventilator 40 06/22/17 20:29 93/53 06/22/17 20:15 85 29 98/55 100 Mechanical Ventilator 40 06/22/17 20:00 85 06/22/17 20:00 60 06/22/17 20:00 97.5 84 31 93/53 100 Mechanical Ventilator 40 06/22/17 19:45 86 31 98/54 100 Mechanical Ventilator 40 06/22/17 19:30 88 31 101/40 100 Mechanical Ventilator 40 06/22/17 19:00 88 30 71/43 100 Mechanical Ventilator 60 06/22/17 18:55 99 84/44 06/22/17 18:40 94 18 55 06/22/17 18:40 92 18 100 Mechanical Ventilator 55 06/22/17 18:30 82 29 114/62 100 Mechanical Ventilator 60 06/22/17 18:30 94 18 100 Mechanical Ventilator 55 06/22/17 18:00 79 26 101/55 100 Mechanical Ventilator 60 06/22/17 17:30 78 31 60 06/22/17 17:30 79 29 101/58 100 Mechanical Ventilator 60 06/22/17 17:00 82 30 96/58 100 Mechanical Ventilator 60 06/22/17 16:30 81 30 95/56 100 Mechanical Ventilator 60 06/22/17 16:00 60 06/22/17 16:00 97.2 80 29 104/61 100 Mechanical Ventilator 60 06/22/17 16:00 80 06/22/17 15:30 78 27 107/59 100 Mechanical Ventilator 60 06/22/17 15:30 80 28 107/59 100 Mechanical Ventilator 60 06/22/17 15:10 83 27 100 Mechanical Ventilator 60 06/22/17 15:00 77 26 100 Mechanical Ventilator 60 06/22/17 15:00 77 26 60 06/22/17 15:00 78 28 108/58 100 Mechanical Ventilator 60 06/22/17 14:30 78 27 102/58 100 Mechanical Ventilator 60 06/22/17 14:00 97.2 79 27 97/57 100 Mechanical Ventilator 60 06/22/17 13:30 80 24 60 06/22/17 13:30 81 28 93/54 100 Mechanical Ventilator 60 06/22/17 13:00 84 28 106/64 100 Mechanical Ventilator 60 06/22/17 12:30 77 27 105/60 100 Mechanical Ventilator 60 Height (Feet): 5 Height (Inches): 10.00 Weight (Pounds): 157 HEENT: other - intubated Respiratory/Chest: lungs clear Cardiovascular: normal rate, regular rhythm, no gallop/murmur Abdomen: soft, non tender Extremities: other - + edema, right groin catheter Microbiology Date/Time Source Procedure Growth Status 06/21/17 08:45 Catheter Site Catheter Tip Culture - Final Staphylococcus Aureus - Mrsa Complete Laboratory Tests Test 06/23/17 04:00 06/23/17 09:00 White Blood Count 11.1 K/UL (4.8-10.8) H Red Blood Count 3.00 M/UL (4.70-6.10) L Hemoglobin 8.3 G/DL (14.2-18.0) L Hematocrit 26.0 % (42.0-52.0) L Mean Corpuscular Volume 87 FL (80-99) Mean Corpuscular Hemoglobin 27.7 PG (27.0-31.0) Mean Corpuscular Hemoglobin Concent 31.9 G/DL (32.0-36.0) L Red Cell Distribution Width 16.4 % (11.6-14.8) H Platelet Count 110 K/UL (150-450) L Mean Platelet Volume 6.5 FL (6.5-10.1) Neutrophils (%) (Auto) 82.5 % (45.0-75.0) H Lymphocytes (%) (Auto) 9.3 % (20.0-45.0) L Monocytes (%) (Auto) 6.9 % (1.0-10.0) Eosinophils (%) (Auto) 1.1 % (0.0-3.0) Basophils (%) (Auto) 0.2 % (0.0-2.0) Prothrombin Time 14.6 SEC (9.30-11.50) H Prothromb Time International Ratio 1.4 (0.9-1.1) H Sodium Level 139 MMOL/L (136-145) Potassium Level 3.4 MMOL/L (3.5-5.1) L Chloride Level 101 MMOL/L (98-107) Carbon Dioxide Level 21 MMOL/L (21-32) Anion Gap 17 mmol/L (5-15) H Blood Urea Nitrogen 77 mg/dL (7-18) H Creatinine 5.6 MG/DL (0.55-1.30) H Estimat Glomerular Filtration Rate mL/min (>60) Glucose Level 58 MG/DL (74-106) L Calcium Level 7.7 MG/DL (8.5-10.1) L Random Vancomycin Level 20.8 ug/mL Arterial Blood pH 7.346 (7.350-7.450) Arterial Blood Partial Pressure CO2 34.1 mmHg (35.0-45.0) L Arterial Blood Partial Pressure O2 206.5 mmHg (75.0-100.0) H Arterial Blood HCO3 18.2 mmol/L (22.0-26.0) L Arterial Blood Oxygen Saturation 99.1 % (92.0-98.0) H Arterial Blood Base Excess -6.2 Jones Test Positive ARTIS SANTIAGO Jun 23, 2017 12:12"
[2017-06-23] MEDS: Cefepime 1gm/D5W 55ml IVPB SCH ×2 (12:32)
[2017-06-23] MEDS ORDERED: Vancomycin 1250mg/D5W 250ml IVPB ONE (14:00)
--- NOTE | 2017-06-23 14:18 | Pulmonology Progress Note ---
Assessment/Plan Assessment/Plan 1. Respiratory failure. 2. Sepsis with shock. 3. Possible dialysis catheter sepsis 4. Stroke with dementia and right hemiparesis. 5. Diabetes. BC MRSA, HD cath removed lower dose of pressor, still on vent more alert will be weanable but not ready to extubate disc w RN taper pressors Subjective ROS Limited/Unobtainable: Yes Allergies: Coded Allergies: No Known Allergies (Unverified , 06/18/17) Objective Last 24 Hour Vital Signs Date Time Temp Pulse Resp B/P (MAP) Pulse Ox O2 Delivery O2 Flow Rate FiO2 06/23/17 13:00 94 24 96/56 100 Mechanical Ventilator 40 06/23/17 12:39 85 24 50 06/23/17 12:30 87 24 90/56 100 Mechanical Ventilator 40 06/23/17 12:00 98.5 89 22 97/58 100 Mechanical Ventilator 40 06/23/17 12:00 84 06/23/17 11:30 92 24 101/54 100 Mechanical Ventilator 40 06/23/17 11:00 83 25 104/56 100 Mechanical Ventilator 40 06/23/17 10:56 80 15 99 Mechanical Ventilator 50 06/23/17 10:46 85 19 99 Mechanical Ventilator 50 06/23/17 10:41 80 22 50 06/23/17 10:30 83 28 109/61 100 Mechanical Ventilator 40 06/23/17 10:00 82 24 115/61 100 Mechanical Ventilator 40 06/23/17 09:55 102 26 Mechanical Ventilator 50 06/23/17 09:36 50 06/23/17 09:35 55 06/23/17 09:30 84 28 110/58 100 Mechanical Ventilator 40 06/23/17 09:00 84 25 104/62 100 Mechanical Ventilator 40 06/23/17 08:48 85 28 50 06/23/17 08:44 99 06/23/17 08:30 85 28 103/57 100 Mechanical Ventilator 40 06/23/17 08:00 98.5 86 28 101/55 100 Mechanical Ventilator 40 06/23/17 08:00 55 06/23/17 08:00 87 06/23/17 08:00 50 06/23/17 07:30 85 27 101/55 100 Mechanical Ventilator 40 06/23/17 07:19 84 18 99 Mechanical Ventilator 50 06/23/17 07:01 86 19 99 Mechanical Ventilator 50 06/23/17 07:00 90 28 102/55 100 Mechanical Ventilator 40 06/23/17 06:54 85 27 50 06/23/17 06:30 89 28 100/80 100 Mechanical Ventilator 40 06/23/17 06:00 89 28 96/59 100 Mechanical Ventilator 40 06/23/17 05:45 90 29 131/61 100 Mechanical Ventilator 40 06/23/17 05:30 90 30 96/52 100 Mechanical Ventilator 40 06/23/17 05:15 89 28 93/56 100 Mechanical Ventilator 40 06/23/17 05:00 90 31 74/44 100 Mechanical Ventilator 40 06/23/17 04:45 102 31 74/44 100 Mechanical Ventilator 40 06/23/17 04:39 104 30 55 06/23/17 04:30 102 27 131/73 100 Mechanical Ventilator 40 06/23/17 04:15 103 30 131/73 100 Mechanical Ventilator 40 06/23/17 04:00 55 06/23/17 04:00 98.0 90 27 131/73 100 Mechanical Ventilator 40 06/23/17 04:00 87 06/23/17 03:45 90 28 110/58 100 Mechanical Ventilator 40 06/23/17 03:30 102 29 75/43 100 Mechanical Ventilator 40 06/23/17 03:15 103 25 76/46 100 Mechanical Ventilator 40 06/23/17 03:00 91 28 55 06/23/17 03:00 92 26 82/49 100 Mechanical Ventilator 40 06/23/17 03:00 92 27 100 Mechanical Ventilator 50 06/23/17 02:50 92 28 100 Mechanical Ventilator 50 06/23/17 02:45 90 28 82/46 100 Mechanical Ventilator 40 06/23/17 02:30 94 29 92/54 100 Mechanical Ventilator 40 06/23/17 02:15 96 30 90/59 100 Mechanical Ventilator 40 06/23/17 02:00 95 29 92/57 100 Mechanical Ventilator 40 06/23/17 01:45 95 29 84/49 100 Mechanical Ventilator 40 06/23/17 01:30 91 28 84/49 100 Mechanical Ventilator 40 06/23/17 01:28 89 35 55 06/23/17 01:15 88 26 95/55 100 Mechanical Ventilator 40 06/23/17 01:00 88 23 91/53 100 Mechanical Ventilator 40 06/23/17 00:45 88 24 92/56 100 Mechanical Ventilator 40 06/23/17 00:30 88 24 90/61 100 Mechanical Ventilator 40 06/23/17 00:15 87 27 91/52 100 Mechanical Ventilator 40 06/23/17 00:00 55 06/23/17 00:00 98 06/23/17 00:00 97.8 88 24 85/60 100 Mechanical Ventilator 40 06/22/17 23:45 92 25 89/53 100 Mechanical Ventilator 40 06/22/17 23:30 96 29 90/57 100 Mechanical Ventilator 40 06/22/17 23:15 103 30 72/50 100 Mechanical Ventilator 40 06/22/17 23:10 98 18 100 Mechanical Ventilator 55 06/22/17 23:10 98 20 55 06/22/17 23:00 97 31 89/51 100 Mechanical Ventilator 40 06/22/17 23:00 98 18 100 Mechanical Ventilator 55 06/22/17 22:45 95 30 85/51 100 Mechanical Ventilator 40 06/22/17 22:30 95 30 83/48 100 Mechanical Ventilator 40 06/22/17 22:15 95 27 96/54 100 Mechanical Ventilator 40 06/22/17 22:00 94 25 86/51 100 Mechanical Ventilator 40 06/22/17 21:45 90 26 84/50 100 Mechanical Ventilator 40 06/22/17 21:30 89 27 97/53 100 Mechanical Ventilator 40 06/22/17 21:15 89 26 89/57 100 Mechanical Ventilator 40 06/22/17 21:00 89 26 85/51 100 Mechanical Ventilator 40 06/22/17 20:59 87 30 55 06/22/17 20:45 87 28 87/51 100 Mechanical Ventilator 40 06/22/17 20:30 88 29 83/54 100 Mechanical Ventilator 40 06/22/17 20:29 93/53 06/22/17 20:15 85 29 98/55 100 Mechanical Ventilator 40 06/22/17 20:00 85 06/22/17 20:00 60 06/22/17 20:00 97.5 84 31 93/53 100 Mechanical Ventilator 40 06/22/17 19:45 86 31 98/54 100 Mechanical Ventilator 40 06/22/17 19:30 88 31 101/40 100 Mechanical Ventilator 40 06/22/17 19:00 88 30 71/43 100 Mechanical Ventilator 60 06/22/17 18:55 99 84/44 06/22/17 18:40 94 18 55 06/22/17 18:40 92 18 100 Mechanical Ventilator 55 06/22/17 18:30 82 29 114/62 100 Mechanical Ventilator 60 06/22/17 18:30 94 18 100 Mechanical Ventilator 55 06/22/17 18:00 79 26 101/55 100 Mechanical Ventilator 60 06/22/17 17:30 78 31 60 06/22/17 17:30 79 29 101/58 100 Mechanical Ventilator 60 06/22/17 17:00 82 30 96/58 100 Mechanical Ventilator 60 06/22/17 16:30 81 30 95/56 100 Mechanical Ventilator 60 06/22/17 16:00 60 06/22/17 16:00 97.2 80 29 104/61 100 Mechanical Ventilator 60 06/22/17 16:00 80 06/22/17 15:30 78 27 107/59 100 Mechanical Ventilator 60 06/22/17 15:30 80 28 107/59 100 Mechanical Ventilator 60 06/22/17 15:10 83 27 100 Mechanical Ventilator 60 06/22/17 15:00 77 26 100 Mechanical Ventilator 60 06/22/17 15:00 77 26 60 06/22/17 15:00 78 28 108/58 100 Mechanical Ventilator 60 06/22/17 14:30 78 27 102/58 100 Mechanical Ventilator 60 Intake and Output 06/22/17 06/23/17 19:00 07:00 Intake Total 195 ml 109.5 ml Output Total 0 ml 0 ml Balance 195 ml 109.5 ml IV Total 195 ml 109.5 ml Output Urine Total 0 ml 0 ml # Bowel Movements 3 4 General Appearance: no acute distress HEENT: atraumatic Respiratory/Chest: lungs clear Cardiovascular: normal rate Microbiology Date/Time Source Procedure Growth Status 06/21/17 08:45 Catheter Site Catheter Tip Culture - Final Staphylococcus Aureus - Mrsa Complete Laboratory Tests 06/23/17 04:00: White Blood Count 11.1H, Red Blood Count 3.00L, Hemoglobin 8.3L, Hematocrit 26.0L, Mean Corpuscular Volume 87, Mean Corpuscular Hemoglobin 27.7, Mean Corpuscular Hemoglobin Concent 31.9L, Red Cell Distribution Width 16.4H, Platelet Count 110L, Mean Platelet Volume 6.5, Neutrophils (%) (Auto) 82.5H, Lymphocytes (%) (Auto) 9.3L, Monocytes (%) (Auto) 6.9, Eosinophils (%) (Auto) 1.1, Basophils (%) (Auto) 0.2, Prothrombin Time 14.6H, Prothromb Time International Ratio 1.4H, Sodium Level 139, Potassium Level 3.4L, Chloride Level 101, Carbon Dioxide Level 21, Anion Gap 17H, Blood Urea Nitrogen 77H, Creatinine 5.6H, Estimat Glomerular Filtration Rate , Glucose Level 58L, Calcium Level 7.7L, Random Vancomycin Level 20.8 06/23/17 09:00: Arterial Blood pH 7.346L, Arterial Blood Partial Pressure CO2 34.1L, Arterial Blood Partial Pressure O2 206.5H, Arterial Blood HCO3 18.2L, Arterial Blood Oxygen Saturation 99.1H, Arterial Blood Base Excess -6.2, Jones Test Positive Current Medications Medications (Trade) Dose Ordered Sig/Jaime Route PRN Reason Start Time Stop Time Status Last Admin Dose Admin Acetaminophen (Tylenol) 650 mg Q4H PRN RECTAL Prn Headache/Temp > 101 06/18/17 21:00 07/18/17 20:59 06/20/17 12:42 Albuterol/ Ipratropium (Albuterol/ Ipratropium) 3 ml Q4HRT HHN 06/18/17 23:00 06/23/17 22:59 06/23/17 10:45 Aspirin (ASA) 81 mg DAILY NG 06/19/17 19:00 07/19/17 18:59 06/23/17 09:06 Cefepime HCl 1 gm/ Dextrose 55 ml @ 110 mls/hr Q24H IVPB 06/22/17 11:00 06/29/17 10:59 06/23/17 12:32 Chlorhexidine Gluconate (Kati-Hex 2%) 1 applic Q24H TOPIC 06/19/17 20:00 07/19/17 19:59 06/22/17 20:28 Dextrose (Dextrose 50%) STAT PRN IV Hypoglycemia 06/19/17 13:00 07/19/17 12:59 06/23/17 05:35 Dopamine HCl/ Dextrose 250 ml @ 0 mls/hr Q24H IV 06/18/17 20:45 07/18/17 20:44 06/18/17 21:34 Epoetin Russ (Procrit (for ESRD on dialysis)) 5,000 units MON-WED-FRI SUBQ 06/21/17 21:00 07/21/17 20:59 06/21/17 21:35 Heparin Sodium (Porcine) (Heparin 5000 units/ml) 5,000 units EVERY 12 HOURS SUBQ 06/18/17 21:00 07/18/17 20:59 06/22/17 08:28 Heparin Sodium/ Sodium Chloride (Heparin 2000 units/Ns 1000ml premix) 2,000 unit ONCE PRN INJ PICC PLACEMENT 06/22/17 08:15 06/23/17 23:59 Insulin Aspart (NovoLOG) EVERY 6 HOURS SUBQ 06/19/17 18:00 07/19/17 17:59 06/21/17 11:31 Lansoprazole (Prevacid) 30 mg DAILY GT 06/19/17 09:00 07/19/17 08:59 06/23/17 09:06 Lidocaine HCl (Xylocaine 1% 30ml) 30 ml ONCE PRN INJ PICC PLACEMENT 06/22/17 08:15 06/23/17 23:59 Norepinephrine Bitartrate 4 mg/ Dextrose 250 ml @ 0 mls/hr Q24H IV 06/19/17 14:15 07/19/17 12:29 06/21/17 02:04 Phenylephrine HCl 100 mg/Sodium Chloride 250 ml @ 0 mls/hr Q24H IV 06/19/17 03:00 07/19/17 02:59 06/22/17 18:55 Sodium Chloride 1,000 ml @ 500 mls/hr Q2H PRN IVLG sbp<90 during hd 06/19/17 14:39 07/19/17 14:38 Vancomycin HCl (Vanco rx to dose) 1 ea DAILY PRN MISC Per rx protocol 06/19/17 02:45 07/19/17 02:44 Vancomycin HCl/ Dextrose 250 ml @ 166.667 mls/hr ONCE ONCE IVPB 06/23/17 14:00 06/23/17 15:29 PEG MARTINEZ Jun 23, 2017 14:18
--- NOTE | 2017-06-23 16:31 | Diagnostic Imaging Report ---
Indication: Patient requires hemodialysis. Findings: After the indications, procedure, risks, complications, and alternatives of the procedure were explained, written informed consent was obtained. The neck was prepped with alcohol. All elements of maximal sterile barrier technique were followed including usage of a cap, mask, sterile gown, sterile gloves, hand hygiene and a large sterile sheet. 1% lidocaine was used to anesthetize the skin. Sonographic evaluation was performed demonstrating a patent and compressible left jugular vein. Access was obtained under real-time ultrasound guidance using an 18 gauge needle and a digital image was saved in archive. An 0.035 wire was then advanced into the vein. Needle exchanged for a dilator. A temporary hemodialysis catheter was then advanced over the wire. Wire was removed. Catheter was secured to the skin using 2-0 Prolene suture. Both ports aspirate and flush easily. The procedure was performed at the bedside. Final position of the catheter by x-ray is in the SVC in good position. The catheter is cleared for use. Impression: Successful placement of left jugular venous hemodialysis catheter.
[2017-06-23] MEDS: Dyna-Hex 2% Top Sol 2oz TOPIC SCH (20:31)
[2017-06-23] MEDS: DOPamine 400mg/250ml 250 ML IV SCH (20:45)
[2017-06-23] MEDS: Epogen (for ESRD on dialysis) SUBQ SCH (21:00)
--- NOTE | 2017-06-23 21:00 | Progress Note ---
DATE: 06/23/2017 CARDIOLOGY PROGRESS NOTE SUBJECTIVE: The patient remains on ventilator support. Blood pressure parameters remained poor. He is on high-dose Levophed with efforts of tapering minimally successful. The patient needs a new dialysis access, otherwise he will succumb to renal failure. The prior dialysis access site line was removed due to line sepsis. OBJECTIVE: VITAL SIGNS: Blood pressure 101/54, pulse 92, respirations 24, and afebrile. HEENT: Orally intubated. LUNGS: Bilateral breath sounds with rhonchi. HEART: Regular rhythm and rate. Normal S1 and S2. ABDOMEN: Soft. EXTREMITIES: With contractures. No edema. Wound as previously outlined and pictured by nursing notes. LABORATORY DATA: White count 11 and hemoglobin 8. Potassium 3.4, BUN 77, and creatinine 5.6. ABG, 7.34, 34, and 200. IMPRESSION: 1. Sepsis with shock. 2. Decubiti. 3. Line sepsis. 4. Bacteremia. 5. Lactic acidosis. 6. Severe protein-calorie malnutrition. 7. End-stage renal disease. 8. Acute myocardial infarction. 9. Paroxysmal atrial arrhythmias. 10. Cerebrovascular disease with dementia. PLAN: 1. New dialysis access. 2. Needs emergency consent as described above. 3. Hemodialysis with limited ultrafiltration. 4. Continue antimicrobials. 5. Ventilator support. 6. Continue efforts to taper off pressors. 7. DVT and stress ulcer prophylaxes. If consultants concur, I feel that the patient's prognosis is guarded. His overall condition is critical and his likelihood to return to prior level of function if a cardiopulmonary arrest ensued is almost zero. 8. DNR would be appropriate if other consultants concur. Gurdeep Harvey M.D. DR: MALCOLM JOB#: [id number] CC:
[2017-06-24] VITALS (48 sets, daily range): BP systolic 71–140; BP diastolic 42–79
[2017-06-24] MEDS: NovoLOG Insulin Flexpen SUBQ SCH ×5 (01:02→23:34)
[2017-06-24] MEDS: Phenylephrine 100 MG in NS 240 ML IV SCH (03:12)
--- NOTE | 2017-06-24 06:15 | Progress Note ---
DATE: 06/24/2017 CARDIOLOGY PROGRESS NOTE SUBJECTIVE: The patient is awaiting new dialysis access. The case was discussed with Dr. Swan. It was felt that DNR is appropriate based on his debility and multiorgan system failure. However, otherwise current level of support will continue. Blood pressure is slowly improving, but remains marginal. He remains on tapering doses of pressors. He is on ventilator support. OBJECTIVE: HEENT: Orally intubated. LUNGS: Coarse breath sounds. Scattered rhonchi. HEART: Regular rhythm and rate. Normal S1, S2. ABDOMEN: Soft. G-tube intact. EXTREMITIES: Trace 1+ dependent edema. NEUROLOGIC: Moderate cognitive impairment. LABORATORY DATA: Labs pending. IMPRESSION: 1. Respiratory failure. 2. Sepsis with shock. 3. Hypokalemia. 4. End-stage renal disease. 5. Ischemic cardiomyopathy. 6. Acute myocardial infarction. 7. Shock liver. 8. Severe protein-calorie malnutrition. 9. Dysphagia with gastrostomy tube. PLAN OF CARE: Weaning efforts. DNR initiated. Nutrition by feeding tube. Antibiotics per Infectious Diseases technology methodology consultant. Ultrafiltration for volume management. Once off pressors, can reassess appropriate cardiovascular regimen. Gurdeep Harvey M.D. DR: NORRIS JOB#: [id number] CC:
[2017-06-24] MEDS: Heparin 5000 units/ml inj SUBQ SCH ×2 (09:00→21:00)
[2017-06-24] MEDS: Aspirin Baby 81mg NG SCH (09:46)
[2017-06-24] MEDS: Cefepime 1gm/D5W 55ml IVPB SCH ×2 (11:24)
--- NOTE | 2017-06-24 12:46 | Nephrology Progress Note ---
Assessment/Plan Problem List: (1) Healthcare-associated pneumonia (2) Malnutrition of moderate degree (3) End-stage renal disease (4) Respiratory failure (5) Septic shock Plan , meds reviewed for eskd,hypotension on pressors, mrsa sepsis, hd stopped early 06/20, L femoral permcath removed 0750 without problem, keep cath out , now replace he isunable to sign as critically ill, hd via new cath Subjective ROS Limited/Unobtainable: Yes Objective Objective Last 24 Hour Vital Signs Date Time Temp Pulse Resp B/P (MAP) Pulse Ox O2 Delivery O2 Flow Rate FiO2 06/24/17 11:30 87 28 111/61 99 Mechanical Ventilator 40 06/24/17 11:00 Mechanical Ventilator 50 06/24/17 11:00 40 06/24/17 11:00 79 26 110/55 99 Mechanical Ventilator 40 06/24/17 10:59 84 30 40 06/24/17 10:30 78 25 102/69 99 Mechanical Ventilator 45 06/24/17 10:00 80 26 110/60 100 Mechanical Ventilator 45 06/24/17 09:30 79 34 104/60 100 Mechanical Ventilator 45 06/24/17 09:06 77 26 45 06/24/17 09:05 100 06/24/17 09:05 45 06/24/17 09:00 80 29 98/51 100 Mechanical Ventilator 50 06/24/17 08:30 77 29 99/53 100 Mechanical Ventilator 50 06/24/17 08:00 55 06/24/17 08:00 80 32 103/52 100 Mechanical Ventilator 50 06/24/17 07:30 97.6 80 32 100/52 100 Mechanical Ventilator 50 06/24/17 07:17 84 31 50 06/24/17 07:00 85 29 107/56 100 Mechanical Ventilator 50 06/24/17 06:30 85 29 97/55 99 Mechanical Ventilator 50 06/24/17 06:00 97 35 121/57 100 Mechanical Ventilator 50 06/24/17 05:30 88 27 75/47 100 Mechanical Ventilator 50 06/24/17 05:24 86 27 50 06/24/17 05:00 86 36 103/55 100 Mechanical Ventilator 50 06/24/17 04:30 84 27 94/56 99 Mechanical Ventilator 50 06/24/17 04:00 98.4 86 30 108/59 100 Mechanical Ventilator 50 06/24/17 04:00 86 12/30/17 04:00 55 06/24/17 03:30 85 29 104/59 100 Mechanical Ventilator 50 06/24/17 03:19 89 27 50 06/24/17 03:12 86 96/57 06/24/17 03:00 88 26 101/64 100 Mechanical Ventilator 50 06/24/17 02:30 87 28 102/53 100 Mechanical Ventilator 50 06/24/17 02:00 86 27 107/57 100 Mechanical Ventilator 50 06/24/17 01:34 86 31 50 06/24/17 01:30 86 26 106/57 100 Mechanical Ventilator 50 06/24/17 01:00 91 21 96/57 100 Mechanical Ventilator 50 06/24/17 00:30 94 25 99/73 100 Mechanical Ventilator 50 06/24/17 00:00 90 06/24/17 00:00 55 06/24/17 00:00 97.4 88 25 103/73 100 Mechanical Ventilator 50 06/23/17 23:51 Mechanical Ventilator 50 06/23/17 23:51 Mechanical Ventilator 50 06/23/17 23:51 90 26 50 06/23/17 23:30 87 31 106/77 100 Mechanical Ventilator 50 06/23/17 23:00 86 31 106/77 100 Mechanical Ventilator 50 06/23/17 22:30 86 25 101/57 100 Mechanical Ventilator 50 06/23/17 22:00 87 31 103/58 100 Mechanical Ventilator 50 06/23/17 21:30 90 29 93/55 100 Mechanical Ventilator 50 06/23/17 21:11 91 22 50 06/23/17 21:00 90 27 97/58 100 Mechanical Ventilator 50 06/23/17 20:30 90 27 108/64 100 Mechanical Ventilator 50 06/23/17 20:00 55 06/23/17 20:00 97.3 88 26 129/61 100 Mechanical Ventilator 40 06/23/17 20:00 87 06/23/17 19:27 82 23 100 Mechanical Ventilator 50 06/23/17 19:18 82 24 50 06/23/17 19:18 82 24 100 Mechanical Ventilator 50 06/23/17 19:00 81 27 119/68 100 Mechanical Ventilator 40 06/23/17 18:30 81 29 104/62 100 Mechanical Ventilator 40 06/23/17 18:00 82 30 98/68 100 Mechanical Ventilator 40 06/23/17 17:30 84 29 104/62 100 Mechanical Ventilator 40 06/23/17 17:00 87 26 94/64 100 Mechanical Ventilator 40 06/23/17 16:43 85 22 50 06/23/17 16:30 94 25 114/96 100 Mechanical Ventilator 40 06/23/17 16:00 98.6 87 25 89/58 100 Mechanical Ventilator 40 06/23/17 16:00 87 06/23/17 16:00 55 06/23/17 15:30 91 26 102/60 100 Mechanical Ventilator 40 06/23/17 15:00 92 29 103/56 100 Mechanical Ventilator 40 06/23/17 14:46 79 14 99 Mechanical Ventilator 50 06/23/17 14:35 82 20 99 Mechanical Ventilator 50 06/23/17 14:32 79 22 50 06/23/17 14:30 79 24 109/58 100 Mechanical Ventilator 40 06/23/17 14:15 101/63 06/23/17 14:00 81 23 103/57 100 Mechanical Ventilator 40 06/23/17 13:30 81 25 101/63 100 Mechanical Ventilator 40 06/23/17 13:00 94 24 96/56 100 Mechanical Ventilator 40 Intake and Output 06/23/17 06/24/17 19:00 07:00 Intake Total 179.0 ml 403.0 ml Output Total 0 ml 0 ml Balance 179.0 ml 403.0 ml IV Total 139.0 ml 63.0 ml Tube Feeding 40 ml 340 ml Output Urine Total 0 ml 0 ml Laboratory Tests 06/24/17 10:22: Arterial Blood pH 7.373, Arterial Blood Partial Pressure CO2 33.7L, Arterial Blood Partial Pressure O2 168.3H, Arterial Blood HCO3 19.2L, Arterial Blood Oxygen Saturation 99.0H, Arterial Blood Base Excess -5.4, Jones Test Positive Height (Feet): 5 Height (Inches): 10.00 Weight (Pounds): 160 General Appearance: mild distress EENT: normal ENT inspection Neck: normal alignment Cardiovascular: regular rhythm, tachycardia Respiratory/Chest: rhonchi - bilaterally Abdomen: non tender Extremities: trace edema Neurologic: disoriented LEONORA HUI Jun 24, 2017 12:46
--- NOTE | 2017-06-24 13:35 | Pulmonology Progress Note ---
Assessment/Plan Assessment/Plan 1. Respiratory failure. 2. Sepsis with shock. 3. Possible dialysis catheter sepsis 4. Stroke with dementia and right hemiparesis. 5. Diabetes. BC MRSA, HD cath removed lower dose of pressor, still on vent not tolerating IMV while on dialysis now back to AC disc w RN taper pressors as tolerated Subjective ROS Limited/Unobtainable: Yes Respiratory: Reports: shortness of breath Allergies: Coded Allergies: No Known Allergies (Unverified , 06/18/17) Objective Last 24 Hour Vital Signs Date Time Temp Pulse Resp B/P (MAP) Pulse Ox O2 Delivery O2 Flow Rate FiO2 06/24/17 13:04 90 31 40 06/24/17 12:30 86 29 117/61 99 Mechanical Ventilator 40 06/24/17 12:00 97.8 84 28 104/61 98 Mechanical Ventilator 40 06/24/17 11:30 87 28 111/61 99 Mechanical Ventilator 40 06/24/17 11:00 Mechanical Ventilator 50 06/24/17 11:00 40 06/24/17 11:00 79 26 110/55 99 Mechanical Ventilator 40 06/24/17 10:59 84 30 40 06/24/17 10:30 78 25 102/69 99 Mechanical Ventilator 45 06/24/17 10:00 80 26 110/60 100 Mechanical Ventilator 45 06/24/17 09:30 79 34 104/60 100 Mechanical Ventilator 45 06/24/17 09:06 77 26 45 06/24/17 09:05 100 06/24/17 09:05 45 06/24/17 09:00 80 29 98/51 100 Mechanical Ventilator 50 06/24/17 08:30 77 29 99/53 100 Mechanical Ventilator 50 06/24/17 08:00 55 06/24/17 08:00 80 32 103/52 100 Mechanical Ventilator 50 06/24/17 07:30 97.6 80 32 100/52 100 Mechanical Ventilator 50 06/24/17 07:17 84 31 50 06/24/17 07:00 85 29 107/56 100 Mechanical Ventilator 50 06/24/17 06:30 85 29 97/55 99 Mechanical Ventilator 50 06/24/17 06:00 97 35 121/57 100 Mechanical Ventilator 50 06/24/17 05:30 88 27 75/47 100 Mechanical Ventilator 50 06/24/17 05:24 86 27 50 06/24/17 05:00 86 36 103/55 100 Mechanical Ventilator 50 06/24/17 04:30 84 27 94/56 99 Mechanical Ventilator 50 06/24/17 04:00 98.4 86 30 108/59 100 Mechanical Ventilator 50 06/24/17 04:00 86 06/24/17 04:00 55 06/24/17 03:30 85 29 104/59 100 Mechanical Ventilator 50 06/24/17 03:19 89 27 50 06/24/17 03:12 86 96/57 06/24/17 03:00 88 26 101/64 100 Mechanical Ventilator 50 06/24/17 02:30 87 28 102/53 100 Mechanical Ventilator 50 06/24/17 02:00 86 27 107/57 100 Mechanical Ventilator 50 06/24/17 01:34 86 31 50 06/24/17 01:30 86 26 106/57 100 Mechanical Ventilator 50 06/24/17 01:00 91 21 96/57 100 Mechanical Ventilator 50 06/24/17 00:30 94 25 99/73 100 Mechanical Ventilator 50 06/24/17 00:00 90 06/24/17 00:00 55 06/24/17 00:00 97.4 88 25 103/73 100 Mechanical Ventilator 50 06/23/17 23:51 Mechanical Ventilator 50 06/23/17 23:51 Mechanical Ventilator 50 06/23/17 23:51 90 26 50 06/23/17 23:30 87 31 106/77 100 Mechanical Ventilator 50 06/23/17 23:00 86 31 106/77 100 Mechanical Ventilator 50 06/23/17 22:30 86 25 101/57 100 Mechanical Ventilator 50 06/23/17 22:00 87 31 103/58 100 Mechanical Ventilator 50 06/23/17 21:30 90 29 93/55 100 Mechanical Ventilator 50 06/23/17 21:11 91 22 50 06/23/17 21:00 90 27 97/58 100 Mechanical Ventilator 50 06/23/17 20:30 90 27 108/64 100 Mechanical Ventilator 50 06/23/17 20:00 55 06/23/17 20:00 97.3 88 26 129/61 100 Mechanical Ventilator 40 06/23/17 20:00 87 06/23/17 19:27 82 23 100 Mechanical Ventilator 50 06/23/17 19:18 82 24 50 06/23/17 19:18 82 24 100 Mechanical Ventilator 50 06/23/17 19:00 81 27 119/68 100 Mechanical Ventilator 40 06/23/17 18:30 81 29 104/62 100 Mechanical Ventilator 40 06/23/17 18:00 82 30 98/68 100 Mechanical Ventilator 40 06/23/17 17:30 84 29 104/62 100 Mechanical Ventilator 40 06/23/17 17:00 87 26 94/64 100 Mechanical Ventilator 40 06/23/17 16:43 85 22 50 06/23/17 16:30 94 25 114/96 100 Mechanical Ventilator 40 06/23/17 16:00 98.6 87 25 89/58 100 Mechanical Ventilator 40 06/23/17 16:00 87 06/23/17 16:00 55 06/23/17 15:30 91 26 102/60 100 Mechanical Ventilator 40 06/23/17 15:00 92 29 103/56 100 Mechanical Ventilator 40 06/23/17 14:46 79 14 99 Mechanical Ventilator 50 06/23/17 14:35 82 20 99 Mechanical Ventilator 50 06/23/17 14:32 79 22 50 06/23/17 14:30 79 24 109/58 100 Mechanical Ventilator 40 06/23/17 14:15 101/63 06/23/17 14:00 81 23 103/57 100 Mechanical Ventilator 40 Intake and Output 06/23/17 06/24/17 19:00 07:00 Intake Total 179.0 ml 403.0 ml Output Total 0 ml 0 ml Balance 179.0 ml 403.0 ml IV Total 139.0 ml 63.0 ml Tube Feeding 40 ml 340 ml Output Urine Total 0 ml 0 ml General Appearance: other - in resp distress HEENT: normocephalic Respiratory/Chest: lungs clear Cardiovascular: normal rate Laboratory Tests 06/24/17 10:22: Arterial Blood pH 7.373, Arterial Blood Partial Pressure CO2 33.7L, Arterial Blood Partial Pressure O2 168.3H, Arterial Blood HCO3 19.2L, Arterial Blood Oxygen Saturation 99.0H, Arterial Blood Base Excess -5.4, Jones Test Positive Current Medications Medications (Trade) Dose Ordered Sig/Jaime Route PRN Reason Start Time Stop Time Status Last Admin Dose Admin Acetaminophen (Tylenol) 650 mg Q4H PRN RECTAL Prn Headache/Temp > 101 06/18/17 21:00 07/18/17 20:59 06/20/17 12:42 Aspirin (ASA) 81 mg DAILY NG 06/19/17 19:00 07/19/17 18:59 06/24/17 09:46 Cefepime HCl 1 gm/ Dextrose 55 ml @ 110 mls/hr Q24H IVPB 06/22/17 11:00 06/29/17 10:59 06/24/17 11:24 Chlorhexidine Gluconate (Kati-Hex 2%) 1 applic Q24H TOPIC 06/19/17 20:00 07/19/17 19:59 06/23/17 20:31 Dextrose (Dextrose 50%) STAT PRN IV Hypoglycemia 06/19/17 13:00 07/19/17 12:59 06/23/17 05:35 Dopamine HCl/ Dextrose 250 ml @ 0 mls/hr Q24H IV 06/18/17 20:45 07/18/17 20:44 06/18/17 21:34 Epoetin Russ (Procrit (for ESRD on dialysis)) 5,000 units MON-MON-MON SUBQ 06/21/17 21:00 07/21/17 20:59 06/21/17 21:35 Heparin Sodium (Porcine) (Heparin 5000 units/ml) 5,000 units EVERY 12 HOURS SUBQ 06/18/17 21:00 07/18/17 20:59 06/23/17 20:33 Insulin Aspart (NovoLOG) EVERY 6 HOURS SUBQ 06/19/17 18:00 07/19/17 17:59 06/24/17 12:10 Lansoprazole (Prevacid) 30 mg DAILY GT 06/19/17 09:00 07/19/17 08:59 06/24/17 09:46 Norepinephrine Bitartrate 4 mg/ Dextrose 250 ml @ 0 mls/hr Q24H IV 06/19/17 14:15 07/19/17 12:29 06/21/17 02:04 Phenylephrine HCl 100 mg/Sodium Chloride 250 ml @ 0 mls/hr Q24H IV 06/19/17 03:00 07/19/17 02:59 06/24/17 03:12 Sodium Chloride 1,000 ml @ 500 mls/hr Q2H PRN IVLG sbp<90 during hd 06/19/17 14:39 07/19/17 14:38 Vancomycin HCl (Vanco rx to dose) 1 ea DAILY PRN MISC Per rx protocol 06/19/17 02:45 07/19/17 02:44 PEG MARTINEZ Jun 24, 2017 13:35
--- NOTE | 2017-06-24 20:32 | General Progress Note ---
Assessment/Plan Problem List: (1) Catheter-related bloodstream infection ICD Codes: T80.211A - Bloodstream infection due to central venous catheter, initial encounter SNOMED: 488538250 (2) Renal failure ICD Codes: N19 - Unspecified kidney failure SNOMED: 23277479 (3) Septic shock ICD Codes: A41.9 - Sepsis, unspecified organism; R65.21 - Severe sepsis with septic shock SNOMED: 09880564 (4) Respiratory failure ICD Codes: J96.90 - Respiratory failure, unspecified, unspecified whether with hypoxia or hypercapnia SNOMED: 285633708 (5) Malnutrition of moderate degree ICD Codes: E44.0 - Moderate protein-calorie malnutrition SNOMED: 610014708 (6) End-stage renal disease ICD Codes: N18.6 - End stage renal disease SNOMED: 06645385 (7) Healthcare-associated pneumonia ICD Codes: J18.9 - Pneumonia, unspecified organism SNOMED: 722483784 Status: not improved Assessment/Plan cont iv abx HD as tolerated. vent resp rx wean as able feeds dvt/stress ulcer prophyalxis critical and guarded dnr Subjective ROS Limited/Unobtainable: Yes Constitutional: Reports: malaise, weakness HEENT: Reports: no symptoms Cardiovascular: Reports: no symptoms Respiratory: Reports: shortness of breath Gastrointestinal/Abdominal: Reports: difficulty swallowing Genitourinary: Reports: no symptoms Neurologic/Psychiatric: Reports: pre-existing deficit Endocrine: Reports: no symptoms Hematologic/Lymphatic: Reports: anemia Allergies: Coded Allergies: No Known Allergies (Unverified , 06/18/17) All Systems: reviewed and negative except above Subjective remains intubated. on derrick. multiple positive cultures noted. dialysis catheter removed. Objective Last 24 Hour Vital Signs Date Time Temp Pulse Resp B/P (MAP) Pulse Ox O2 Delivery O2 Flow Rate FiO2 06/24/17 19:28 80 28 80 06/24/17 19:00 86 29 119/59 100 Mechanical Ventilator 100 06/24/17 18:30 84 30 115/63 100 Mechanical Ventilator 100 06/24/17 18:00 83 29 113/60 100 Mechanical Ventilator 100 06/24/17 17:30 85 28 112/69 100 Mechanical Ventilator 100 06/24/17 17:00 89 29 104/61 100 Mechanical Ventilator 100 06/24/17 16:55 85 25 100 06/24/17 16:30 98.7 90 29 103/60 99 Mechanical Ventilator 100 06/24/17 16:00 93 32 90/50 99 Mechanical Ventilator 100 06/24/17 16:00 104 06/24/17 15:38 100 06/24/17 15:36 105 31 100 06/24/17 15:30 105 27 71/42 89 Mechanical Ventilator 100 06/24/17 15:00 108 32 104/58 80 Mechanical Ventilator 40 06/24/17 14:30 104 32 140/75 97 Mechanical Ventilator 40 06/24/17 14:15 128/58 06/24/17 14:00 98 31 99/61 97 Mechanical Ventilator 40 06/24/17 13:30 96 31 75/48 97 Mechanical Ventilator 40 06/24/17 13:04 90 31 40 06/24/17 13:00 97 30 114/60 97 Mechanical Ventilator 40 06/24/17 12:45 40 06/24/17 12:30 86 29 117/61 99 Mechanical Ventilator 40 06/24/17 12:25 55 06/24/17 12:00 77 06/24/17 12:00 97.8 84 28 104/61 98 Mechanical Ventilator 40 06/24/17 11:30 87 28 111/61 99 Mechanical Ventilator 40 06/24/17 11:00 Mechanical Ventilator 50 06/24/17 11:00 40 06/24/17 11:00 79 26 110/55 99 Mechanical Ventilator 40 06/24/17 10:59 84 30 40 06/24/17 10:30 78 25 102/69 99 Mechanical Ventilator 45 06/24/17 10:00 80 26 110/60 100 Mechanical Ventilator 45 06/24/17 09:30 79 34 104/60 100 Mechanical Ventilator 45 06/24/17 09:06 77 26 45 06/24/17 09:05 100 06/24/17 09:05 45 06/24/17 09:00 80 29 98/51 100 Mechanical Ventilator 50 06/24/17 08:30 77 29 99/53 100 Mechanical Ventilator 50 06/24/17 08:00 55 06/24/17 08:00 80 32 103/52 100 Mechanical Ventilator 50 06/24/17 08:00 86 06/24/17 07:30 97.6 80 32 100/52 100 Mechanical Ventilator 50 06/24/17 07:17 84 31 50 06/24/17 07:00 85 29 107/56 100 Mechanical Ventilator 50 06/24/17 06:30 85 29 97/55 99 Mechanical Ventilator 50 06/24/17 06:00 97 35 121/57 100 Mechanical Ventilator 50 06/24/17 05:30 88 27 75/47 100 Mechanical Ventilator 50 06/24/17 05:24 86 27 50 06/24/17 05:00 86 36 103/55 100 Mechanical Ventilator 50 06/24/17 04:30 84 27 94/56 99 Mechanical Ventilator 50 06/24/17 04:00 98.4 86 30 108/59 100 Mechanical Ventilator 50 06/24/17 04:00 86 06/24/17 04:00 55 06/24/17 03:30 85 29 104/59 100 Mechanical Ventilator 50 06/24/17 03:19 89 27 50 06/24/17 03:12 86 96/57 06/24/17 03:00 88 26 101/64 100 Mechanical Ventilator 50 06/24/17 02:30 87 28 102/53 100 Mechanical Ventilator 50 06/24/17 02:00 86 27 107/57 100 Mechanical Ventilator 50 06/24/17 01:34 86 31 50 06/24/17 01:30 86 26 106/57 100 Mechanical Ventilator 50 06/24/17 01:00 91 21 96/57 100 Mechanical Ventilator 50 06/24/17 00:30 94 25 99/73 100 Mechanical Ventilator 50 06/24/17 00:00 90 06/24/17 00:00 55 06/24/17 00:00 97.4 88 25 103/73 100 Mechanical Ventilator 50 06/23/17 23:51 Mechanical Ventilator 50 06/23/17 23:51 Mechanical Ventilator 50 06/23/17 23:51 90 26 50 06/23/17 23:30 87 31 106/77 100 Mechanical Ventilator 50 06/23/17 23:00 86 31 106/77 100 Mechanical Ventilator 50 06/23/17 22:30 86 25 101/57 100 Mechanical Ventilator 50 06/23/17 22:00 87 31 103/58 100 Mechanical Ventilator 50 06/23/17 21:30 90 29 93/55 100 Mechanical Ventilator 50 06/23/17 21:11 91 22 50 06/23/17 21:00 90 27 97/58 100 Mechanical Ventilator 50 06/23/17 20:30 90 27 108/64 100 Mechanical Ventilator 50 Intake and Output 06/23/17 06/24/17 19:00 07:00 Intake Total 179.0 ml 403.0 ml Output Total 0 ml 0 ml Balance 179.0 ml 403.0 ml IV Total 139.0 ml 63.0 ml Tube Feeding 40 ml 340 ml Output Urine Total 0 ml 0 ml Laboratory Tests 06/24/17 10:22: Arterial Blood pH 7.373, Arterial Blood Partial Pressure CO2 33.7L, Arterial Blood Partial Pressure O2 168.3H, Arterial Blood HCO3 19.2L, Arterial Blood Oxygen Saturation 99.0H, Arterial Blood Base Excess -5.4, Jones Test Positive 06/24/17 15:12: Arterial Blood pH 7.400, Arterial Blood Partial Pressure CO2 36.3, Arterial Blood Partial Pressure O2 40.2*L, Arterial Blood HCO3 22.0, Arterial Blood Oxygen Saturation 74.7L, Arterial Blood Base Excess -2.4, Jones Test Positive Height (Feet): 5 Height (Inches): 10.00 Weight (Pounds): 160 General Appearance: WD/WN, lethargic, confused Neck: supple Cardiovascular: regular rhythm Respiratory/Chest: chest wall non-tender, lungs clear, normal breath sounds, no respiratory distress Abdomen: normal bowel sounds, non tender, soft, no organomegaly, no mass Edema: no edema noted Arm (L), no edema noted Arm (R), no edema noted Leg (L), no edema noted Leg (R), no edema noted Pedal (L), no edema noted Pedal (R), no edema noted Generalized Neurologic: unresponsive, aphasia KEENA BRANDT Jun 24, 2017 20:31
[2017-06-24] MEDS: DOPamine 400mg/250ml 250 ML IV SCH (20:45)
[2017-06-24] MEDS: Dyna-Hex 2% Top Sol 2oz TOPIC SCH (23:33)
[2017-06-25] VITALS (48 sets, daily range): BP systolic 88–131; BP diastolic 44–69
[2017-06-25] MEDS: Phenylephrine 100 MG in NS 240 ML IV SCH ×2 (02:45→12:44)
[2017-06-25] MEDS: NovoLOG Insulin Flexpen SUBQ SCH ×4 (07:48→23:55)
--- NOTE | 2017-06-25 07:57 | Infectious Diseases Prog Note ---
Assessment/Plan Assessment/Plan A 1. MRSA sepsis s/p catheter removal 2. septic shock 3. respiratory failure 4. renal failure, ESRD 5. staph aureus , Enterobacter pneumonia P 1. continue vancomycin iv, continue Cefepime Subjective ROS Limited/Unobtainable: Yes Cardiovascular: Reports: other - on Phenylephrine drip Allergies: Coded Allergies: No Known Allergies (Unverified , 06/18/17) Objective Vital Signs Last 24 Hour Vital Signs Date Time Temp Pulse Resp B/P (MAP) Pulse Ox O2 Delivery O2 Flow Rate FiO2 06/25/17 07:37 89 25 70 06/25/17 05:16 85 29 70 06/25/17 04:00 87 06/25/17 04:00 97.3 87 41 125/65 100 Mechanical Ventilator 70 06/25/17 04:00 70 06/25/17 03:30 90 39 127/69 100 Mechanical Ventilator 70 06/25/17 03:10 89 27 70 06/25/17 03:00 89 33 117/66 100 Mechanical Ventilator 70 06/25/17 02:45 77 126/66 06/25/17 02:30 89 31 122/68 100 Mechanical Ventilator 70 06/25/17 02:00 79 29 123/61 99 Mechanical Ventilator 70 06/25/17 01:30 79 27 122/63 97 Mechanical Ventilator 100 06/25/17 01:22 77 26 70 06/25/17 01:00 78 28 131/68 97 Mechanical Ventilator 100 06/25/17 00:30 79 26 124/68 97 Mechanical Ventilator 100 06/25/17 00:00 100 06/25/17 00:00 98.6 81 30 126/66 97 Mechanical Ventilator 99 06/25/17 00:00 100 06/24/17 23:30 82 45 113/62 97 Mechanical Ventilator 99 06/24/17 23:09 98 29 70 06/24/17 23:00 97 45 105/53 97 Mechanical Ventilator 98 06/24/17 22:30 97 45 105/53 97 Mechanical Ventilator 98 06/24/17 22:00 99 47 88/46 97 Mechanical Ventilator 100 06/24/17 21:30 89 30 109/56 100 Mechanical Ventilator 100 06/24/17 21:05 83 30 80 06/24/17 21:00 67 33 112/79 97 Mechanical Ventilator 100 06/24/17 20:45 125/65 06/24/17 20:30 80 27 117/63 100 Mechanical Ventilator 100 06/24/17 20:00 83 06/24/17 20:00 98.3 82 29 108/64 100 Mechanical Ventilator 100 06/24/17 20:00 100 06/24/17 19:30 82 29 114/68 100 Mechanical Ventilator 100 06/24/17 19:28 80 28 80 06/24/17 19:00 86 29 119/59 100 Mechanical Ventilator 100 06/24/17 18:30 84 30 115/63 100 Mechanical Ventilator 100 06/24/17 18:00 83 29 113/60 100 Mechanical Ventilator 100 06/24/17 17:30 85 28 112/69 100 Mechanical Ventilator 100 06/24/17 17:00 89 29 104/61 100 Mechanical Ventilator 100 06/24/17 16:55 85 25 100 06/24/17 16:30 98.7 90 29 103/60 99 Mechanical Ventilator 100 06/24/17 16:00 93 32 90/50 99 Mechanical Ventilator 100 06/24/17 16:00 104 06/24/17 15:38 100 06/24/17 15:36 105 31 100 06/24/17 15:30 105 27 71/42 89 Mechanical Ventilator 100 06/24/17 15:00 108 32 104/58 80 Mechanical Ventilator 40 06/24/17 14:30 104 32 140/75 97 Mechanical Ventilator 40 06/24/17 14:15 128/58 06/24/17 14:00 98 31 99/61 97 Mechanical Ventilator 40 06/24/17 13:30 96 31 75/48 97 Mechanical Ventilator 40 06/24/17 13:04 90 31 40 06/24/17 13:00 97 30 114/60 97 Mechanical Ventilator 40 06/24/17 12:45 40 06/24/17 12:30 86 29 117/61 99 Mechanical Ventilator 40 06/24/17 12:25 55 06/24/17 12:00 77 06/24/17 12:00 97.8 84 28 104/61 98 Mechanical Ventilator 40 06/24/17 11:30 87 28 111/61 99 Mechanical Ventilator 40 06/24/17 11:00 Mechanical Ventilator 50 06/24/17 11:00 40 06/24/17 11:00 79 26 110/55 99 Mechanical Ventilator 40 06/24/17 10:59 84 30 40 06/24/17 10:30 78 25 102/69 99 Mechanical Ventilator 45 06/24/17 10:00 80 26 110/60 100 Mechanical Ventilator 45 06/24/17 09:30 79 34 104/60 100 Mechanical Ventilator 45 06/24/17 09:06 77 26 45 06/24/17 09:05 100 06/24/17 09:05 45 06/24/17 09:00 80 29 98/51 100 Mechanical Ventilator 50 06/24/17 08:30 77 29 99/53 100 Mechanical Ventilator 50 06/24/17 08:00 55 06/24/17 08:00 80 32 103/52 100 Mechanical Ventilator 50 06/24/17 08:00 86 Height (Feet): 5 Height (Inches): 10.00 Weight (Pounds): 160 General Appearance: no acute distress HEENT: other - orally intubated Respiratory/Chest: lungs clear, other - on ventilator Cardiovascular: normal rate, other - R femoral central line, Left Jegular Hamilton's catheter Abdomen: soft, non tender, other - NG tube Laboratory Tests Test 06/24/17 10:22 06/24/17 15:12 Arterial Blood pH 7.373 (7.350-7.450) 7.400 (7.350-7.450) Arterial Blood Partial Pressure CO2 33.7 mmHg (35.0-45.0) L 36.3 mmHg (35.0-45.0) Arterial Blood Partial Pressure O2 168.3 mmHg (75.0-100.0) H 40.2 mmHg (75.0-100.0) Arterial Blood HCO3 19.2 mmol/L (22.0-26.0) L 22.0 mmol/L (22.0-26.0) Arterial Blood Oxygen Saturation 99.0 % (92.0-98.0) H 74.7 % (92.0-98.0) L Arterial Blood Base Excess -5.4 -2.4 Jones Test Positive Positive Current Medications Medications (Trade) Dose Ordered Sig/Jaime Route PRN Reason Start Time Stop Time Status Last Admin Dose Admin Acetaminophen (Tylenol) 650 mg Q4H PRN RECTAL Prn Headache/Temp > 101 06/18/17 21:00 07/18/17 20:59 06/20/17 12:42 Aspirin (ASA) 81 mg DAILY NG 06/19/17 19:00 07/19/17 18:59 06/24/17 09:46 Cefepime HCl 1 gm/ Dextrose 55 ml @ 110 mls/hr Q24H IVPB 06/22/17 11:00 06/29/17 10:59 06/24/17 11:24 Chlorhexidine Gluconate (Kati-Hex 2%) 1 applic Q24H TOPIC 06/19/17 20:00 07/19/17 19:59 06/24/17 23:33 Dextrose (Dextrose 50%) STAT PRN IV Hypoglycemia 06/19/17 13:00 07/19/17 12:59 06/23/17 05:35 Dopamine HCl/ Dextrose 250 ml @ 0 mls/hr Q24H IV 06/18/17 20:45 07/18/17 20:44 06/18/17 21:34 Epoetin Russ (Procrit (for ESRD on dialysis)) 5,000 units MON-MON-MON SUBQ 06/21/17 21:00 07/21/17 20:59 06/21/17 21:35 Heparin Sodium (Porcine) (Heparin 5000 units/ml) 5,000 units EVERY 12 HOURS SUBQ 06/18/17 21:00 07/18/17 20:59 06/23/17 20:33 Insulin Aspart (NovoLOG) EVERY 6 HOURS SUBQ 06/19/17 18:00 07/19/17 17:59 06/24/17 12:10 Lansoprazole (Prevacid) 30 mg DAILY GT 06/19/17 09:00 07/19/17 08:59 06/24/17 09:46 Norepinephrine Bitartrate 4 mg/ Dextrose 250 ml @ 0 mls/hr Q24H IV 06/19/17 14:15 07/19/17 12:29 06/21/17 02:04 Phenylephrine HCl 100 mg/Sodium Chloride 250 ml @ 0 mls/hr Q24H IV 06/19/17 03:00 07/19/17 02:59 06/25/17 02:45 Sodium Chloride 1,000 ml @ 500 mls/hr Q2H PRN IVLG sbp<90 during hd 06/19/17 14:39 07/19/17 14:38 Vancomycin HCl (Vanco rx to dose) 1 ea DAILY PRN MISC Per rx protocol 06/19/17 02:45 07/19/17 02:44 ZAIRA ROBLES Jun 25, 2017 07:57
[2017-06-25] MEDS: Aspirin Baby 81mg NG SCH (08:39)
[2017-06-25] MEDS: Heparin 5000 units/ml inj SUBQ SCH ×2 (08:39→21:17)
--- NOTE | 2017-06-25 09:18 | General Progress Note ---
Assessment/Plan Problem List: (1) Catheter-related bloodstream infection ICD Codes: T80.211A - Bloodstream infection due to central venous catheter, initial encounter SNOMED: 396627266 (2) Renal failure ICD Codes: N19 - Unspecified kidney failure SNOMED: 80638729 (3) Septic shock ICD Codes: A41.9 - Sepsis, unspecified organism; R65.21 - Severe sepsis with septic shock SNOMED: 27604246 (4) Respiratory failure ICD Codes: J96.90 - Respiratory failure, unspecified, unspecified whether with hypoxia or hypercapnia SNOMED: 233010196 (5) Malnutrition of moderate degree ICD Codes: E44.0 - Moderate protein-calorie malnutrition SNOMED: 818678626 (6) End-stage renal disease ICD Codes: N18.6 - End stage renal disease SNOMED: 85935569 (7) Healthcare-associated pneumonia ICD Codes: J18.9 - Pneumonia, unspecified organism SNOMED: 186897687 Status: stable, not improved Assessment/Plan cont iv abx HD as tolerated. wean pressors wean vent resp rx feeds dvt/stress ulcer prophyalxis critical and guarded dnr Subjective ROS Limited/Unobtainable: Yes Constitutional: Reports: malaise, weakness HEENT: Reports: no symptoms Cardiovascular: Reports: no symptoms Respiratory: Reports: sputum Gastrointestinal/Abdominal: Reports: difficulty swallowing Genitourinary: Reports: no symptoms Neurologic/Psychiatric: Reports: pre-existing deficit Endocrine: Reports: no symptoms Hematologic/Lymphatic: Reports: no symptoms Allergies: Coded Allergies: No Known Allergies (Unverified , 06/18/17) All Systems: reviewed and negative except above Subjective remains intubated. on derrick- slightly less. multiple positive cultures noted. dialysis catheter removed. remains poorly responsive at baseline Objective Last 24 Hour Vital Signs Date Time Temp Pulse Resp B/P (MAP) Pulse Ox O2 Delivery O2 Flow Rate FiO2 06/25/17 08:00 70 06/25/17 08:00 89 06/25/17 08:00 89 27 104/59 100 Mechanical Ventilator 70 06/25/17 07:37 89 25 70 06/25/17 07:00 88 38 106/66 100 Mechanical Ventilator 70 06/25/17 06:30 89 31 103/58 100 Mechanical Ventilator 70 06/25/17 06:00 91 30 88/58 100 Mechanical Ventilator 70 06/25/17 05:30 99 30 104/62 100 Mechanical Ventilator 70 06/25/17 05:16 85 29 70 06/25/17 05:00 86 40 119/64 100 Mechanical Ventilator 70 06/25/17 04:30 86 41 127/67 100 Mechanical Ventilator 70 06/25/17 04:00 87 06/25/17 04:00 97.3 87 41 125/65 100 Mechanical Ventilator 70 06/25/17 04:00 70 06/25/17 03:30 90 39 127/69 100 Mechanical Ventilator 70 06/25/17 03:10 89 27 70 06/25/17 03:00 89 33 117/66 100 Mechanical Ventilator 70 06/25/17 02:45 77 126/66 06/25/17 02:30 89 31 122/68 100 Mechanical Ventilator 70 06/25/17 02:00 79 29 123/61 99 Mechanical Ventilator 70 06/25/17 01:30 79 27 122/63 97 Mechanical Ventilator 100 06/25/17 01:22 77 26 70 06/25/17 01:00 78 28 131/68 97 Mechanical Ventilator 100 06/25/17 00:30 79 26 124/68 97 Mechanical Ventilator 100 06/25/17 00:00 100 06/25/17 00:00 98.6 81 30 126/66 97 Mechanical Ventilator 99 06/25/17 00:00 100 06/24/17 23:30 82 45 113/62 97 Mechanical Ventilator 99 06/24/17 23:09 98 29 70 06/24/17 23:00 97 45 105/53 97 Mechanical Ventilator 98 06/24/17 22:30 97 45 105/53 97 Mechanical Ventilator 98 06/24/17 22:00 99 47 88/46 97 Mechanical Ventilator 100 06/24/17 21:30 89 30 109/56 100 Mechanical Ventilator 100 06/24/17 21:05 83 30 80 06/24/17 21:00 67 33 112/79 97 Mechanical Ventilator 100 06/24/17 20:45 125/65 06/24/17 20:30 80 27 117/63 100 Mechanical Ventilator 100 06/24/17 20:00 83 06/24/17 20:00 98.3 82 29 108/64 100 Mechanical Ventilator 100 06/24/17 20:00 100 06/24/17 19:30 82 29 114/68 100 Mechanical Ventilator 100 06/24/17 19:28 80 28 80 06/24/17 19:00 86 29 119/59 100 Mechanical Ventilator 100 06/24/17 18:30 84 30 115/63 100 Mechanical Ventilator 100 06/24/17 18:00 83 29 113/60 100 Mechanical Ventilator 100 06/24/17 17:30 85 28 112/69 100 Mechanical Ventilator 100 06/24/17 17:00 89 29 104/61 100 Mechanical Ventilator 100 06/24/17 16:55 85 25 100 06/24/17 16:30 98.7 90 29 103/60 99 Mechanical Ventilator 100 06/24/17 16:00 93 32 90/50 99 Mechanical Ventilator 100 06/24/17 16:00 104 06/24/17 15:38 100 06/24/17 15:36 105 31 100 06/24/17 15:30 105 27 71/42 89 Mechanical Ventilator 100 06/24/17 15:00 108 32 104/58 80 Mechanical Ventilator 40 06/24/17 14:30 104 32 140/75 97 Mechanical Ventilator 40 06/24/17 14:15 128/58 06/24/17 14:00 98 31 99/61 97 Mechanical Ventilator 40 06/24/17 13:30 96 31 75/48 97 Mechanical Ventilator 40 06/24/17 13:04 90 31 40 06/24/17 13:00 97 30 114/60 97 Mechanical Ventilator 40 06/24/17 12:45 40 06/24/17 12:30 86 29 117/61 99 Mechanical Ventilator 40 06/24/17 12:25 55 06/24/17 12:00 77 06/24/17 12:00 97.8 84 28 104/61 98 Mechanical Ventilator 40 06/24/17 11:30 87 28 111/61 99 Mechanical Ventilator 40 06/24/17 11:00 Mechanical Ventilator 50 06/24/17 11:00 40 06/24/17 11:00 79 26 110/55 99 Mechanical Ventilator 40 06/24/17 10:59 84 30 40 06/24/17 10:30 78 25 102/69 99 Mechanical Ventilator 45 06/24/17 10:00 80 26 110/60 100 Mechanical Ventilator 45 06/24/17 09:30 79 34 104/60 100 Mechanical Ventilator 45 Intake and Output 06/24/17 06/25/17 19:00 07:00 Intake Total 158 ml 573.0 ml Output Total 0 ml 0 ml Balance 158 ml 573.0 ml IV Total 33 ml 483.0 ml Tube Feeding 125 ml 90 ml Output Urine Total 0 ml 0 ml # Bowel Movements 1 Laboratory Tests 06/24/17 10:22: Arterial Blood pH 7.373, Arterial Blood Partial Pressure CO2 33.7L, Arterial Blood Partial Pressure O2 168.3H, Arterial Blood HCO3 19.2L, Arterial Blood Oxygen Saturation 99.0H, Arterial Blood Base Excess -5.4, Jones Test Positive 06/24/17 15:12: Arterial Blood pH 7.400, Arterial Blood Partial Pressure CO2 36.3, Arterial Blood Partial Pressure O2 40.2*L, Arterial Blood HCO3 22.0, Arterial Blood Oxygen Saturation 74.7L, Arterial Blood Base Excess -2.4, Jones Test Positive Height (Feet): 5 Height (Inches): 10.00 Weight (Pounds): 162 Objective General Appearance: WD/WN, lethargic, confused Neck: supple Cardiovascular: regular rhythm Respiratory/Chest: chest wall non-tender, lungs clear, normal breath sounds, no respiratory distress Abdomen: normal bowel sounds, non tender, soft, no organomegaly, no mass Edema: no edema noted Arm (L), no edema noted Arm (R), no edema noted Leg (L), no edema noted Leg (R), no edema noted Pedal (L), no edema noted Pedal (R), no edema noted Generalized Neurologic: unresponsive, aphasia KEENA BRANDT Jun 25, 2017 09:18
--- NOTE | 2017-06-25 11:00 | Nephrology Progress Note ---
Assessment/Plan Problem List: (1) Healthcare-associated pneumonia (2) Malnutrition of moderate degree (3) End-stage renal disease (4) Respiratory failure (5) Septic shock Plan , meds reviewed for eskd,hypotension on pressors, mrsa sepsis, hd stopped early 06/20, L femoral permcath removed 0 he isunable to sign as critically ill, hd via new cath 06/24 Subjective ROS Limited/Unobtainable: Yes Objective Objective Last 24 Hour Vital Signs Date Time Temp Pulse Resp B/P (MAP) Pulse Ox O2 Delivery O2 Flow Rate FiO2 06/25/17 10:00 88 29 102/62 100 Mechanical Ventilator 70 06/25/17 09:34 86 25 70 06/25/17 09:30 100 06/25/17 09:30 89 31 94/56 100 Mechanical Ventilator 70 06/25/17 09:00 89 29 104/60 100 Mechanical Ventilator 70 06/25/17 08:30 88 41 92/59 100 Mechanical Ventilator 70 06/25/17 08:00 70 06/25/17 08:00 89 06/25/17 08:00 98.6 88 32 103/60 100 Mechanical Ventilator 70 06/25/17 07:37 89 25 70 06/25/17 07:30 88 33 106/62 100 Mechanical Ventilator 70 06/25/17 07:00 88 38 106/66 100 Mechanical Ventilator 70 06/25/17 06:30 89 31 103/58 100 Mechanical Ventilator 70 06/25/17 06:00 91 30 88/58 100 Mechanical Ventilator 70 06/25/17 05:30 99 30 104/62 100 Mechanical Ventilator 70 06/25/17 05:16 85 29 70 06/25/17 05:00 86 40 119/64 100 Mechanical Ventilator 70 06/25/17 04:30 86 41 127/67 100 Mechanical Ventilator 70 06/25/17 04:00 87 06/25/17 04:00 97.3 87 41 125/65 100 Mechanical Ventilator 70 06/25/17 04:00 70 06/25/17 03:30 90 39 127/69 100 Mechanical Ventilator 70 06/25/17 03:10 89 27 70 06/25/17 03:00 89 33 117/66 100 Mechanical Ventilator 70 06/25/17 02:45 77 126/66 06/25/17 02:30 89 31 122/68 100 Mechanical Ventilator 70 06/25/17 02:00 79 29 123/61 99 Mechanical Ventilator 70 06/25/17 01:30 79 27 122/63 97 Mechanical Ventilator 100 06/25/17 01:22 77 26 70 06/25/17 01:00 78 28 131/68 97 Mechanical Ventilator 100 06/25/17 00:30 79 26 124/68 97 Mechanical Ventilator 100 06/25/17 00:00 100 06/25/17 00:00 98.6 81 30 126/66 97 Mechanical Ventilator 99 06/25/17 00:00 100 06/24/17 23:30 82 45 113/62 97 Mechanical Ventilator 99 06/24/17 23:09 98 29 70 06/24/17 23:00 97 45 105/53 97 Mechanical Ventilator 98 06/24/17 22:30 97 45 105/53 97 Mechanical Ventilator 98 06/24/17 22:00 99 47 88/46 97 Mechanical Ventilator 100 06/24/17 21:30 89 30 109/56 100 Mechanical Ventilator 100 06/24/17 21:05 83 30 80 06/24/17 21:00 67 33 112/79 97 Mechanical Ventilator 100 06/24/17 20:45 125/65 06/24/17 20:30 80 27 117/63 100 Mechanical Ventilator 100 06/24/17 20:00 83 06/24/17 20:00 98.3 82 29 108/64 100 Mechanical Ventilator 100 06/24/17 20:00 100 06/24/17 19:30 82 29 114/68 100 Mechanical Ventilator 100 06/24/17 19:28 80 28 80 06/24/17 19:00 86 29 119/59 100 Mechanical Ventilator 100 06/24/17 18:30 84 30 115/63 100 Mechanical Ventilator 100 06/24/17 18:00 83 29 113/60 100 Mechanical Ventilator 100 06/24/17 17:30 85 28 112/69 100 Mechanical Ventilator 100 06/24/17 17:00 89 29 104/61 100 Mechanical Ventilator 100 06/24/17 16:55 85 25 100 06/24/17 16:30 98.7 90 29 103/60 99 Mechanical Ventilator 100 06/24/17 16:00 93 32 90/50 99 Mechanical Ventilator 100 06/24/17 16:00 104 06/24/17 15:38 100 06/24/17 15:36 105 31 100 06/24/17 15:30 105 27 71/42 89 Mechanical Ventilator 100 06/24/17 15:00 108 32 104/58 80 Mechanical Ventilator 40 06/24/17 14:30 104 32 140/75 97 Mechanical Ventilator 40 06/24/17 14:15 128/58 06/24/17 14:00 98 31 99/61 97 Mechanical Ventilator 40 06/24/17 13:30 96 31 75/48 97 Mechanical Ventilator 40 06/24/17 13:04 90 31 40 06/24/17 13:00 97 30 114/60 97 Mechanical Ventilator 40 06/24/17 12:45 40 06/24/17 12:30 86 29 117/61 99 Mechanical Ventilator 40 06/24/17 12:25 55 06/24/17 12:00 77 06/24/17 12:00 97.8 84 28 104/61 98 Mechanical Ventilator 40 06/24/17 11:30 87 28 111/61 99 Mechanical Ventilator 40 06/24/17 11:00 Mechanical Ventilator 50 06/24/17 11:00 40 06/24/17 11:00 79 26 110/55 99 Mechanical Ventilator 40 Intake and Output 06/24/17 06/25/17 19:00 07:00 Intake Total 158 ml 573.0 ml Output Total 0 ml 0 ml Balance 158 ml 573.0 ml IV Total 33 ml 483.0 ml Tube Feeding 125 ml 90 ml Output Urine Total 0 ml 0 ml # Bowel Movements 1 Laboratory Tests 06/24/17 15:12: Arterial Blood pH 7.400, Arterial Blood Partial Pressure CO2 36.3, Arterial Blood Partial Pressure O2 40.2*L, Arterial Blood HCO3 22.0, Arterial Blood Oxygen Saturation 74.7L, Arterial Blood Base Excess -2.4, Jones Test Positive Height (Feet): 5 Height (Inches): 10.00 Weight (Pounds): 162 General Appearance: confused EENT: normal ENT inspection Neck: normal alignment Cardiovascular: regular rhythm Respiratory/Chest: rhonchi - bilaterally Abdomen: non tender Extremities: trace edema Neurologic: disoriented LEONORA HUI Jun 25, 2017 11:00
[2017-06-25] MEDS: Cefepime 1gm/D5W 55ml IVPB SCH ×2 (11:40)
--- NOTE | 2017-06-25 12:04 | Diagnostic Imaging Report ---
Indication: Dyspnea Technique: XRAY Chest 1v Comparison: 06/14/2017 Findings: Heart size and mediastinal contours are stable allowing for differences in patient positioning. Interval placement of left IJ approach none tunneled dialysis catheter. Catheter tip in the region of the SVC. Endotracheal tube tip above the rodrigo. NG tube tip in the proximal stomach. Increased haziness of the left lower lung with blunting of the left costophrenic sulcus likely reflective of increasing layering left pleural effusion with adjacent left basilar compressive atelectasis/consolidation. There is no pneumothorax. No acute osseous abnormality seen. Impression: Interval development of left-sided small layering pleural effusion with left basilar atelectasis/consolidation. Interval placement of left IJ vein approach nontunneled dialysis catheter. No pneumothorax.
[2017-06-25] MEDS: Dyna-Hex 2% Top Sol 2oz TOPIC SCH (20:18)
[2017-06-25] MEDS: DOPamine 400mg/250ml 250 ML IV SCH (20:45)
--- NOTE | 2017-06-25 21:42 | Pulmonolgy Critical Care Note ---
Critical Care - Asmt/Plan Assessment/Plan: 1. Respiratory failure. 2. Sepsis with shock. 3. Possible dialysis catheter sepsis 4. Stroke with dementia and right hemiparesis. 5. Diabetes. BC MRSA, HD cath removed lower dose of pressor, titrate map greater than 65 mmhg still on vent, weaning daily as tolerated nebs and suction abx per id wound care cxr am TF and asp risk disc w RN Time Spent (Minutes): 50 Critical Care - Objective Last 24 Hour Vital Signs Date Time Temp Pulse Resp B/P (MAP) Pulse Ox O2 Delivery O2 Flow Rate FiO2 06/25/17 21:30 98 33 99/45 100 Mechanical Ventilator 70 06/25/17 21:04 93 28 70 06/25/17 21:00 94 30 106/50 100 Mechanical Ventilator 70 06/25/17 20:45 114/56 06/25/17 20:30 93 31 114/56 100 Mechanical Ventilator 70 06/25/17 20:00 70 06/25/17 20:00 98.0 93 32 113/53 100 Mechanical Ventilator 70 06/25/17 20:00 93 06/25/17 19:30 91 26 123/68 98 Mechanical Ventilator 70 06/25/17 19:12 98 35 70 06/25/17 19:00 102 23 95/62 95 Mechanical Ventilator 70 06/25/17 18:30 103 35 119/68 100 Mechanical Ventilator 70 06/25/17 18:00 98 35 119/68 100 Mechanical Ventilator 70 06/25/17 17:30 95 32 101/56 100 Mechanical Ventilator 70 06/25/17 17:02 94 24 40 06/25/17 17:00 91 28 101/56 100 Mechanical Ventilator 70 06/25/17 16:30 93 30 101/56 100 Mechanical Ventilator 70 06/25/17 16:00 97.8 92 27 116/66 100 Mechanical Ventilator 70 06/25/17 16:00 70 06/25/17 16:00 92 06/25/17 15:30 95 28 126/47 100 Mechanical Ventilator 70 06/25/17 15:20 94 28 70 06/25/17 15:00 92 29 98/58 100 Mechanical Ventilator 70 06/25/17 14:30 93 29 98/58 100 Mechanical Ventilator 70 06/25/17 14:15 120/63 06/25/17 14:00 96 31 120/63 100 Mechanical Ventilator 70 06/25/17 13:30 93 30 110/64 100 Mechanical Ventilator 70 06/25/17 13:00 91 31 105/58 100 Mechanical Ventilator 70 06/25/17 12:44 93 113/58 06/25/17 12:40 88 28 70 06/25/17 12:30 90 30 103/58 100 Mechanical Ventilator 70 06/25/17 12:00 70 06/25/17 12:00 98.6 91 29 101/59 100 Mechanical Ventilator 70 06/25/17 12:00 89 06/25/17 11:30 90 30 110/66 100 Mechanical Ventilator 70 06/25/17 11:25 87 26 70 06/25/17 11:00 89 28 102/59 100 Mechanical Ventilator 70 06/25/17 10:30 89 29 95/58 100 Mechanical Ventilator 70 06/25/17 10:00 88 29 102/62 100 Mechanical Ventilator 70 06/25/17 09:34 86 25 70 06/25/17 09:30 100 06/25/17 09:30 89 31 94/56 100 Mechanical Ventilator 70 06/25/17 09:00 89 29 104/60 100 Mechanical Ventilator 70 06/25/17 08:30 88 41 92/59 100 Mechanical Ventilator 70 06/25/17 08:00 70 06/25/17 08:00 89 06/25/17 08:00 98.6 88 32 103/60 100 Mechanical Ventilator 70 06/25/17 07:37 89 25 70 06/25/17 07:30 88 33 106/62 100 Mechanical Ventilator 70 06/25/17 07:00 88 38 106/66 100 Mechanical Ventilator 70 06/25/17 06:30 89 31 103/58 100 Mechanical Ventilator 70 06/25/17 06:00 91 30 88/58 100 Mechanical Ventilator 70 06/25/17 05:30 99 30 104/62 100 Mechanical Ventilator 70 06/25/17 05:16 85 29 70 06/25/17 05:00 86 40 119/64 100 Mechanical Ventilator 70 06/25/17 04:30 86 41 127/67 100 Mechanical Ventilator 70 06/25/17 04:00 87 06/25/17 04:00 97.3 87 41 125/65 100 Mechanical Ventilator 70 06/25/17 04:00 70 06/25/17 03:30 90 39 127/69 100 Mechanical Ventilator 70 06/25/17 03:10 89 27 70 06/25/17 03:00 89 33 117/66 100 Mechanical Ventilator 70 06/25/17 02:45 77 126/66 06/25/17 02:30 89 31 122/68 100 Mechanical Ventilator 70 06/25/17 02:00 79 29 123/61 99 Mechanical Ventilator 70 06/25/17 01:30 79 27 122/63 97 Mechanical Ventilator 100 06/25/17 01:22 77 26 70 06/25/17 01:00 78 28 131/68 97 Mechanical Ventilator 100 06/25/17 00:30 79 26 124/68 97 Mechanical Ventilator 100 06/25/17 00:00 100 06/25/17 00:00 98.6 81 30 126/66 97 Mechanical Ventilator 99 06/25/17 00:00 100 06/24/17 23:30 82 45 113/62 97 Mechanical Ventilator 99 06/24/17 23:09 98 29 70 06/24/17 23:00 97 45 105/53 97 Mechanical Ventilator 98 06/24/17 22:30 97 45 105/53 97 Mechanical Ventilator 98 06/24/17 22:00 99 47 88/46 97 Mechanical Ventilator 100 Status: obtunded Condition: critical Heart: HR/BP unstable Abdomen: soft, non-tender Extremities: edema Decubiti: location Accucheck: 143 Blood Sugars: BS not controlled Critical Care - Subjective ROS Limited/Unobtainable: Yes Condition: critical FI02: 70 Vent Support Breath Rate: 20 Vent Support Mode: AC Vent Tidal Volume: 500 Sputum Amount: Small PEEP: 5.0 PIP: 19 Tube Feeding Amount: 30 I&O: Intake and Output 06/24/17 06/25/17 19:00 07:00 Intake Total 158 ml 573.0 ml Output Total 0 ml 0 ml Balance 158 ml 573.0 ml IV Total 33 ml 483.0 ml Tube Feeding 125 ml 90 ml Output Urine Total 0 ml 0 ml # Bowel Movements 1 Subjective: intubated on the vent no distress tolerating tf no bleeding noted positive uop agitated at times. CXR: 06/24 cxxr reviewed ET-Tube: 8.0 ET Position: 23 Labs: Laboratory Tests Test 06/25/17 15:59 Arterial Blood pH 7.413 (7.350-7.450) Arterial Blood Partial Pressure CO2 35.6 mmHg (35.0-45.0) Arterial Blood Partial Pressure O2 267.6 mmHg (75.0-100.0) H Arterial Blood HCO3 22.2 mmol/L (22.0-26.0) Arterial Blood Oxygen Saturation 99.4 % (92.0-98.0) H Arterial Blood Base Excess -2.0 Jones Test Positive Current Medications Medications (Trade) Dose Ordered Sig/Jaime Route PRN Reason Start Time Stop Time Status Last Admin Dose Admin Acetaminophen (Tylenol) 650 mg Q4H PRN RECTAL Prn Headache/Temp > 101 06/18/17 21:00 07/18/17 20:59 06/20/17 12:42 Aspirin (ASA) 81 mg DAILY NG 06/19/17 19:00 07/19/17 18:59 06/24/17 09:46 Cefepime HCl 1 gm/ Dextrose 55 ml @ 110 mls/hr Q24H IVPB 06/22/17 11:00 06/29/17 10:59 06/25/17 11:40 Chlorhexidine Gluconate (Kati-Hex 2%) 1 applic Q24H TOPIC 06/19/17 20:00 07/19/17 19:59 06/25/17 20:18 Dextrose (Dextrose 50%) STAT PRN IV Hypoglycemia 06/19/17 13:00 07/19/17 12:59 06/23/17 05:35 Dopamine HCl/ Dextrose 250 ml @ 0 mls/hr Q24H IV 06/18/17 20:45 07/18/17 20:44 06/18/17 21:34 Epoetin Russ (Procrit (for ESRD on dialysis)) 5,000 units MON-MON-MON SUBQ 06/21/17 21:00 07/21/17 20:59 06/21/17 21:35 Heparin Sodium (Porcine) (Heparin 5000 units/ml) 5,000 units EVERY 12 HOURS SUBQ 06/18/17 21:00 07/18/17 20:59 06/25/17 21:17 Insulin Aspart (NovoLOG) EVERY 6 HOURS SUBQ 06/19/17 18:00 07/19/17 17:59 06/25/17 18:54 Lansoprazole (Prevacid) 30 mg DAILY GT 06/19/17 09:00 07/19/17 08:59 06/25/17 08:40 Norepinephrine Bitartrate 4 mg/ Dextrose 250 ml @ 0 mls/hr Q24H IV 06/19/17 14:15 07/19/17 12:29 06/21/17 02:04 Phenylephrine HCl 100 mg/Sodium Chloride 250 ml @ 0 mls/hr Q24H IV 06/19/17 03:00 07/19/17 02:59 06/25/17 12:44 Sodium Chloride 1,000 ml @ 500 mls/hr Q2H PRN IVLG sbp<90 during hd 06/19/17 14:39 07/19/17 14:38 Vancomycin HCl (Vanco rx to dose) 1 ea DAILY PRN MISC Per rx protocol 06/19/17 02:45 07/19/17 02:44 LALO CUETO DO Jun 25, 2017 21:42
[2017-06-25] MEDS ORDERED: Tubing IV Secondary IV ONE (22:46)
[2017-06-26] VITALS (48 sets, daily range): BP systolic 80–138; BP diastolic 40–64
[2017-06-26] MEDS: NovoLOG Insulin Flexpen SUBQ SCH ×3 (05:50→18:06)
--- NOTE | 2017-06-26 08:20 | General Progress Note ---
Assessment/Plan Problem List: (1) Catheter-related bloodstream infection ICD Codes: T80.211A - Bloodstream infection due to central venous catheter, initial encounter SNOMED: 450364061 (2) Renal failure ICD Codes: N19 - Unspecified kidney failure SNOMED: 62327538 (3) Septic shock ICD Codes: A41.9 - Sepsis, unspecified organism; R65.21 - Severe sepsis with septic shock SNOMED: 80571207 (4) Respiratory failure ICD Codes: J96.90 - Respiratory failure, unspecified, unspecified whether with hypoxia or hypercapnia SNOMED: 747233306 (5) Malnutrition of moderate degree ICD Codes: E44.0 - Moderate protein-calorie malnutrition SNOMED: 160229782 (6) End-stage renal disease ICD Codes: N18.6 - End stage renal disease SNOMED: 96788211 (7) Healthcare-associated pneumonia ICD Codes: J18.9 - Pneumonia, unspecified organism SNOMED: 453991378 Status: stable Assessment/Plan cont iv abx HD as tolerated. wean pressors as able wean vent resp rx feeds dvt/stress ulcer prophyalxis critical and guarded dnr Subjective ROS Limited/Unobtainable: Yes Constitutional: Reports: no symptoms HEENT: Reports: no symptoms Cardiovascular: Reports: no symptoms Respiratory: Reports: shortness of breath, sputum Gastrointestinal/Abdominal: Reports: difficulty swallowing Genitourinary: Reports: no symptoms Neurologic/Psychiatric: Reports: pre-existing deficit Endocrine: Reports: no symptoms Allergies: Coded Allergies: No Known Allergies (Unverified , 06/18/17) All Systems: reviewed and negative except above Subjective remains intubated. on derrick. multiple positive cultures noted. dialysis catheter removed. remains poorly responsive at baseline Objective Last 24 Hour Vital Signs Date Time Temp Pulse Resp B/P (MAP) Pulse Ox O2 Delivery O2 Flow Rate FiO2 06/26/17 08:00 87 06/26/17 08:00 98.4 87 30 110/49 100 Mechanical Ventilator 70 06/26/17 08:00 70 06/26/17 07:30 88 30 98/52 100 Mechanical Ventilator 70 06/26/17 07:26 88 24 70 06/26/17 07:00 87 30 102/48 100 Mechanical Ventilator 70 06/26/17 06:30 89 30 98/48 100 Mechanical Ventilator 70 06/26/17 06:00 84 29 97/52 100 Mechanical Ventilator 70 06/26/17 06:00 89 30 98/48 100 Mechanical Ventilator 70 06/26/17 05:30 90 29 105/52 100 Mechanical Ventilator 70 06/26/17 05:14 92 30 70 06/26/17 05:00 86 29 99/49 100 Mechanical Ventilator 70 06/26/17 04:30 89 31 93/47 100 Mechanical Ventilator 70 06/26/17 04:00 91 06/26/17 04:00 97.8 91 28 94/49 100 Mechanical Ventilator 70 06/26/17 04:00 70 06/26/17 03:30 88 28 96/47 100 Mechanical Ventilator 70 06/26/17 03:15 98 27 70 06/26/17 03:00 94 31 85/44 100 Mechanical Ventilator 70 06/26/17 02:30 98 27 89/46 100 Mechanical Ventilator 70 06/26/17 02:00 99 30 92/48 100 Mechanical Ventilator 70 06/26/17 02:00 98 27 89/46 100 Mechanical Ventilator 70 06/26/17 01:30 100 28 111/61 100 Mechanical Ventilator 70 06/26/17 01:21 94 27 70 06/26/17 01:00 95 27 99/45 100 Mechanical Ventilator 70 06/26/17 00:30 95 30 95/47 100 Mechanical Ventilator 70 06/26/17 00:00 97.9 98 30 95/49 100 Mechanical Ventilator 70 06/25/17 23:30 96 30 111/51 100 Mechanical Ventilator 70 06/25/17 23:14 95 32 70 06/25/17 23:00 95 32 99/49 100 Mechanical Ventilator 70 06/25/17 22:30 96 32 103/49 100 Mechanical Ventilator 70 06/25/17 22:00 96 32 103/49 100 Mechanical Ventilator 70 06/25/17 22:00 92 35 102/44 100 Mechanical Ventilator 70 06/25/17 21:30 98 33 99/45 100 Mechanical Ventilator 70 06/25/17 21:04 93 28 70 06/25/17 21:00 94 30 106/50 100 Mechanical Ventilator 70 06/25/17 20:45 114/56 06/25/17 20:30 93 31 114/56 100 Mechanical Ventilator 70 06/25/17 20:00 70 06/25/17 20:00 98.0 93 32 113/53 100 Mechanical Ventilator 70 06/25/17 20:00 93 06/25/17 19:30 91 26 123/68 98 Mechanical Ventilator 70 06/25/17 19:12 98 35 70 06/25/17 19:00 102 23 95/62 95 Mechanical Ventilator 70 06/25/17 18:30 103 35 119/68 100 Mechanical Ventilator 70 06/25/17 18:00 98 35 119/68 100 Mechanical Ventilator 70 06/25/17 17:30 95 32 101/56 100 Mechanical Ventilator 70 06/25/17 17:02 94 24 40 06/25/17 17:00 91 28 101/56 100 Mechanical Ventilator 70 06/25/17 16:30 93 30 101/56 100 Mechanical Ventilator 70 06/25/17 16:00 97.8 92 27 116/66 100 Mechanical Ventilator 70 06/25/17 16:00 70 06/25/17 16:00 92 06/25/17 15:30 95 28 126/47 100 Mechanical Ventilator 70 06/25/17 15:20 94 28 70 06/25/17 15:00 92 29 98/58 100 Mechanical Ventilator 70 06/25/17 14:30 93 29 98/58 100 Mechanical Ventilator 70 06/25/17 14:15 120/63 06/25/17 14:00 96 31 120/63 100 Mechanical Ventilator 70 06/25/17 13:30 93 30 110/64 100 Mechanical Ventilator 70 06/25/17 13:00 91 31 105/58 100 Mechanical Ventilator 70 06/25/17 12:44 93 113/58 06/25/17 12:40 88 28 70 06/25/17 12:30 90 30 103/58 100 Mechanical Ventilator 70 06/25/17 12:00 70 06/25/17 12:00 98.6 91 29 101/59 100 Mechanical Ventilator 70 06/25/17 12:00 89 06/25/17 11:30 90 30 110/66 100 Mechanical Ventilator 70 06/25/17 11:25 87 26 70 06/25/17 11:00 89 28 102/59 100 Mechanical Ventilator 70 06/25/17 10:30 89 29 95/58 100 Mechanical Ventilator 70 06/25/17 10:00 88 29 102/62 100 Mechanical Ventilator 70 06/25/17 09:34 86 25 70 06/25/17 09:30 100 12/31/17 09:30 89 31 94/56 100 Mechanical Ventilator 70 06/25/17 09:00 89 29 104/60 100 Mechanical Ventilator 70 06/25/17 08:30 88 41 92/59 100 Mechanical Ventilator 70 Intake and Output 06/25/17 06/26/17 19:00 07:00 Intake Total 376.0 ml 565.5 ml Output Total 0 ml 0 ml Balance 376.0 ml 565.5 ml IV Total 171.0 ml 85.5 ml Tube Feeding 205 ml 480 ml Output Urine Total 0 ml 0 ml # Voids 1 # Bowel Movements 1 Laboratory Tests 06/25/17 15:59: Arterial Blood pH 7.413, Arterial Blood Partial Pressure CO2 35.6, Arterial Blood Partial Pressure O2 267.6H, Arterial Blood HCO3 22.2, Arterial Blood Oxygen Saturation 99.4H, Arterial Blood Base Excess -2.0, Jones Test Positive 06/26/17 04:45: Random Vancomycin Level 28.8 Height (Feet): 5 Height (Inches): 10.00 Weight (Pounds): 168 Objective General Appearance: WD/WN, lethargic, confused Neck: supple Cardiovascular: regular rhythm Respiratory/Chest: chest wall non-tender, lungs clear, normal breath sounds, no respiratory distress Abdomen: normal bowel sounds, non tender, soft, no organomegaly, no mass Edema: no edema noted Arm (L), no edema noted Arm (R), no edema noted Leg (L), no edema noted Leg (R), no edema noted Pedal (L), no edema noted Pedal (R), no edema noted Generalized Neurologic: unresponsive, aphasia KEENA BRANDT Jun 26, 2017 08:20
--- NOTE | 2017-06-26 08:48 | Infectious Diseases Prog Note ---
Assessment/Plan Assessment/Plan A 1. MRSA sepsis s/p catheter removal 2. septic shock 3. respiratory failure 4. renal failure, ESRD 5. staph aureus , Enterobacter pneumonia P 1. continue vancomycin iv, continue Cefepime 2. remove femoral line Subjective ROS Limited/Unobtainable: Yes Cardiovascular: Reports: other - on pressor Allergies: Coded Allergies: No Known Allergies (Unverified , 06/18/17) Objective Vital Signs Last 24 Hour Vital Signs Date Time Temp Pulse Resp B/P (MAP) Pulse Ox O2 Delivery O2 Flow Rate FiO2 06/26/17 08:30 84 30 110/48 100 Mechanical Ventilator 70 06/26/17 08:00 87 06/26/17 08:00 98.4 87 30 110/49 100 Mechanical Ventilator 70 06/26/17 08:00 70 06/26/17 07:30 88 30 98/52 100 Mechanical Ventilator 70 06/26/17 07:26 88 24 70 06/26/17 07:00 87 30 102/48 100 Mechanical Ventilator 70 06/26/17 06:30 89 30 98/48 100 Mechanical Ventilator 70 06/26/17 06:00 84 29 97/52 100 Mechanical Ventilator 70 06/26/17 06:00 89 30 98/48 100 Mechanical Ventilator 70 06/26/17 05:30 90 29 105/52 100 Mechanical Ventilator 70 06/26/17 05:14 92 30 70 06/26/17 05:00 86 29 99/49 100 Mechanical Ventilator 70 06/26/17 04:30 89 31 93/47 100 Mechanical Ventilator 70 06/26/17 04:00 91 06/26/17 04:00 97.8 91 28 94/49 100 Mechanical Ventilator 70 06/26/17 04:00 70 06/26/17 03:30 88 28 96/47 100 Mechanical Ventilator 70 06/26/17 03:15 98 27 70 06/26/17 03:00 94 31 85/44 100 Mechanical Ventilator 70 06/26/17 02:30 98 27 89/46 100 Mechanical Ventilator 70 06/26/17 02:00 99 30 92/48 100 Mechanical Ventilator 70 06/26/17 02:00 98 27 89/46 100 Mechanical Ventilator 70 06/26/17 01:30 100 28 111/61 100 Mechanical Ventilator 70 06/26/17 01:21 94 27 70 06/26/17 01:00 95 27 99/45 100 Mechanical Ventilator 70 06/26/17 00:30 95 30 95/47 100 Mechanical Ventilator 70 06/26/17 00:00 97.9 98 30 95/49 100 Mechanical Ventilator 70 06/25/17 23:30 96 30 111/51 100 Mechanical Ventilator 70 06/25/17 23:14 95 32 70 06/25/17 23:00 95 32 99/49 100 Mechanical Ventilator 70 06/25/17 22:30 96 32 103/49 100 Mechanical Ventilator 70 06/25/17 22:00 96 32 103/49 100 Mechanical Ventilator 70 06/25/17 22:00 92 35 102/44 100 Mechanical Ventilator 70 06/25/17 21:30 98 33 99/45 100 Mechanical Ventilator 70 06/25/17 21:04 93 28 70 06/25/17 21:00 94 30 106/50 100 Mechanical Ventilator 70 06/25/17 20:45 114/56 06/25/17 20:30 93 31 114/56 100 Mechanical Ventilator 70 06/25/17 20:00 70 06/25/17 20:00 98.0 93 32 113/53 100 Mechanical Ventilator 70 06/25/17 20:00 93 06/25/17 19:30 91 26 123/68 98 Mechanical Ventilator 70 06/25/17 19:12 98 35 70 06/25/17 19:00 102 23 95/62 95 Mechanical Ventilator 70 06/25/17 18:30 103 35 119/68 100 Mechanical Ventilator 70 06/25/17 18:00 98 35 119/68 100 Mechanical Ventilator 70 06/25/17 17:30 95 32 101/56 100 Mechanical Ventilator 70 06/25/17 17:02 94 24 40 06/25/17 17:00 91 28 101/56 100 Mechanical Ventilator 70 06/25/17 16:30 93 30 101/56 100 Mechanical Ventilator 70 06/25/17 16:00 97.8 92 27 116/66 100 Mechanical Ventilator 70 06/25/17 16:00 70 06/25/17 16:00 92 06/25/17 15:30 95 28 126/47 100 Mechanical Ventilator 70 06/25/17 15:20 94 28 70 06/25/17 15:00 92 29 98/58 100 Mechanical Ventilator 70 06/25/17 14:30 93 29 98/58 100 Mechanical Ventilator 70 06/25/17 14:15 120/63 12/31/17 14:00 96 31 120/63 100 Mechanical Ventilator 70 06/25/17 13:30 93 30 110/64 100 Mechanical Ventilator 70 06/25/17 13:00 91 31 105/58 100 Mechanical Ventilator 70 06/25/17 12:44 93 113/58 06/25/17 12:40 88 28 70 06/25/17 12:30 90 30 103/58 100 Mechanical Ventilator 70 06/25/17 12:00 70 06/25/17 12:00 98.6 91 29 101/59 100 Mechanical Ventilator 70 06/25/17 12:00 89 06/25/17 11:30 90 30 110/66 100 Mechanical Ventilator 70 06/25/17 11:25 87 26 70 06/25/17 11:00 89 28 102/59 100 Mechanical Ventilator 70 06/25/17 10:30 89 29 95/58 100 Mechanical Ventilator 70 06/25/17 10:00 88 29 102/62 100 Mechanical Ventilator 70 06/25/17 09:34 86 25 70 06/25/17 09:30 100 06/25/17 09:30 89 31 94/56 100 Mechanical Ventilator 70 06/25/17 09:00 89 29 104/60 100 Mechanical Ventilator 70 Height (Feet): 5 Height (Inches): 10.00 Weight (Pounds): 168 HEENT: other - orally intubated Respiratory/Chest: rhonchi - bilaterally, other - on ventilator Cardiovascular: normal rate, other - left IJ HD line, right femoral line Abdomen: soft, non tender, other - NG tube feeding Extremities: other - edema Neurologic/Psychiatric: unresponsiveness Laboratory Tests Test 06/25/17 15:59 06/26/17 04:45 Arterial Blood pH 7.413 (7.350-7.450) Arterial Blood Partial Pressure CO2 35.6 mmHg (35.0-45.0) Arterial Blood Partial Pressure O2 267.6 mmHg (75.0-100.0) H Arterial Blood HCO3 22.2 mmol/L (22.0-26.0) Arterial Blood Oxygen Saturation 99.4 % (92.0-98.0) H Arterial Blood Base Excess -2.0 Jones Test Positive Random Vancomycin Level 28.8 ug/mL Current Medications Medications (Trade) Dose Ordered Sig/Jaime Route PRN Reason Start Time Stop Time Status Last Admin Dose Admin Acetaminophen (Tylenol) 650 mg Q4H PRN RECTAL Prn Headache/Temp > 101 06/18/17 21:00 07/18/17 20:59 06/20/17 12:42 Aspirin (ASA) 81 mg DAILY NG 06/19/17 19:00 07/19/17 18:59 06/24/17 09:46 Cefepime HCl 1 gm/ Dextrose 55 ml @ 110 mls/hr Q24H IVPB 06/22/17 11:00 06/29/17 10:59 06/25/17 11:40 Chlorhexidine Gluconate (Kati-Hex 2%) 1 applic Q24H TOPIC 06/19/17 20:00 07/19/17 19:59 06/25/17 20:18 Dextrose (Dextrose 50%) STAT PRN IV Hypoglycemia 06/19/17 13:00 07/19/17 12:59 06/23/17 05:35 Dopamine HCl/ Dextrose 250 ml @ 0 mls/hr Q24H IV 06/18/17 20:45 07/18/17 20:44 06/18/17 21:34 Epoetin Russ (Procrit (for ESRD on dialysis)) 5,000 units MON-WED-FRI SUBQ 06/21/17 21:00 07/21/17 20:59 06/21/17 21:35 Heparin Sodium (Porcine) (Heparin 5000 units/ml) 5,000 units EVERY 12 HOURS SUBQ 06/18/17 21:00 07/18/17 20:59 06/25/17 21:17 Insulin Aspart (NovoLOG) EVERY 6 HOURS SUBQ 06/19/17 18:00 07/19/17 17:59 06/26/17 05:50 Lansoprazole (Prevacid) 30 mg DAILY GT 06/19/17 09:00 07/19/17 08:59 06/25/17 08:40 Norepinephrine Bitartrate 4 mg/ Dextrose 250 ml @ 0 mls/hr Q24H IV 06/19/17 14:15 07/19/17 12:29 06/21/17 02:04 Phenylephrine HCl 100 mg/Sodium Chloride 250 ml @ 0 mls/hr Q24H IV 06/19/17 03:00 07/19/17 02:59 06/25/17 12:44 Sodium Chloride 1,000 ml @ 500 mls/hr Q2H PRN IVLG sbp<90 during hd 06/19/17 14:39 07/19/17 14:38 Vancomycin HCl (Vanco rx to dose) 1 ea DAILY PRN MISC Per rx protocol 06/19/17 02:45 07/19/17 02:44 ZAIRA ROBLES Jun 26, 2017 08:48
[2017-06-26] MEDS: Aspirin Baby 81mg NG SCH (09:05)
[2017-06-26] MEDS: Heparin 5000 units/ml inj SUBQ SCH ×2 (09:08→21:03)
[2017-06-26 10:02] LABS: BASOPHILS % (AUTO) 0.3 % (0.0-2.0); EOSINOPHILS % (AUTO) 0.7 % (0.0-3.0); HEMATOCRIT 28.3 % (42.0-52.0); LYMPHOCYTES % (AUTO) 12.5 % (20.0-45.0); MEAN CORPUSCULAR VOLUME 85 FL (80-99); MONOCYTES % (AUTO) 6.7 % (1.0-10.0); NEUTROPHILS % (AUTO) 79.9 % (45.0-75.0); PLATELET COUNT 242 K/UL (150-450); RED BLOOD COUNT 3.31 M/UL (4.70-6.10); RED CELL DISTRIBUTION WIDTH 16.7 % (11.6-14.8); WHITE BLOOD COUNT 13.2 K/UL (4.8-10.8)
[2017-06-26 10:11] LABS: ALANINE AMINOTRANSFERASE 37 U/L (12-78); ALBUMIN 1.3 G/DL (3.4-5.0); ALBUMIN/GLOBULIN RATIO 0.2 (1.0-2.7); ALKALINE PHOSPHATASE 264 U/L (46-116); ANION GAP 15 mmol/L (5-15); ASPARTATE AMINO TRANSFERASE 39 U/L (15-37); BILIRUBIN,TOTAL 1.4 MG/DL (0.2-1.0); BLOOD UREA NITROGEN 71 mg/dL (7-18); CALCIUM 8.2 MG/DL (8.5-10.1); CARBON DIOXIDE 21 MMOL/L (21-32); CHLORIDE 103 MMOL/L (98-107); CREATININE 5.4 MG/DL (0.55-1.30); POTASSIUM 3.6 MMOL/L (3.5-5.1); SODIUM 139 MMOL/L (136-145)
[2017-06-26 10:12] LABS: BILIRUBIN,DIRECT 1.1 MG/DL (0.0-0.3)
--- NOTE | 2017-06-26 11:09 | Nephrology Progress Note ---
Assessment/Plan Problem List: (1) Healthcare-associated pneumonia (2) Malnutrition of moderate degree (3) End-stage renal disease (4) Respiratory failure (5) Septic shock Plan , meds reviewed for eskd,hypotension on pressors, mrsa sepsis, hd stopped early 06/20, L femoral permcath removed 0 he isunable to sign as critically ill, hd via new cath 06/27 Subjective ROS Limited/Unobtainable: Yes Objective Objective Last 24 Hour Vital Signs Date Time Temp Pulse Resp B/P (MAP) Pulse Ox O2 Delivery O2 Flow Rate FiO2 06/26/17 10:30 85 23 95/49 100 Mechanical Ventilator 70 06/26/17 10:00 89 26 93/50 100 Mechanical Ventilator 70 06/26/17 09:55 89 25 60 06/26/17 09:30 89 26 106/40 100 Mechanical Ventilator 70 06/26/17 09:00 90 31 106/53 100 Mechanical Ventilator 70 06/26/17 09:00 89 26 106/40 100 Mechanical Ventilator 70 06/26/17 08:30 84 30 110/48 100 Mechanical Ventilator 70 06/26/17 08:00 87 06/26/17 08:00 98.4 87 30 110/49 100 Mechanical Ventilator 70 06/26/17 08:00 70 06/26/17 07:30 88 30 98/52 100 Mechanical Ventilator 70 06/26/17 07:26 88 24 70 06/26/17 07:00 87 30 102/48 100 Mechanical Ventilator 70 06/26/17 06:30 89 30 98/48 100 Mechanical Ventilator 70 06/26/17 06:00 84 29 97/52 100 Mechanical Ventilator 70 06/26/17 06:00 89 30 98/48 100 Mechanical Ventilator 70 06/26/17 05:30 90 29 105/52 100 Mechanical Ventilator 70 06/26/17 05:14 92 30 70 06/26/17 05:00 86 29 99/49 100 Mechanical Ventilator 70 06/26/17 04:30 89 31 93/47 100 Mechanical Ventilator 70 06/26/17 04:00 91 06/26/17 04:00 97.8 91 28 94/49 100 Mechanical Ventilator 70 06/26/17 04:00 70 06/26/17 03:30 88 28 96/47 100 Mechanical Ventilator 70 06/26/17 03:15 98 27 70 06/26/17 03:00 94 31 85/44 100 Mechanical Ventilator 70 06/26/17 02:30 98 27 89/46 100 Mechanical Ventilator 70 06/26/17 02:00 99 30 92/48 100 Mechanical Ventilator 70 06/26/17 02:00 98 27 89/46 100 Mechanical Ventilator 70 06/26/17 01:30 100 28 111/61 100 Mechanical Ventilator 70 06/26/17 01:21 94 27 70 06/26/17 01:00 95 27 99/45 100 Mechanical Ventilator 70 06/26/17 00:30 95 30 95/47 100 Mechanical Ventilator 70 06/26/17 00:00 97.9 98 30 95/49 100 Mechanical Ventilator 70 06/25/17 23:30 96 30 111/51 100 Mechanical Ventilator 70 06/25/17 23:14 95 32 70 06/25/17 23:00 95 32 99/49 100 Mechanical Ventilator 70 06/25/17 22:30 96 32 103/49 100 Mechanical Ventilator 70 06/25/17 22:00 96 32 103/49 100 Mechanical Ventilator 70 06/25/17 22:00 92 35 102/44 100 Mechanical Ventilator 70 06/25/17 21:30 98 33 99/45 100 Mechanical Ventilator 70 06/25/17 21:04 93 28 70 06/25/17 21:00 94 30 106/50 100 Mechanical Ventilator 70 06/25/17 20:45 114/56 06/25/17 20:30 93 31 114/56 100 Mechanical Ventilator 70 06/25/17 20:00 70 06/25/17 20:00 98.0 93 32 113/53 100 Mechanical Ventilator 70 06/25/17 20:00 93 06/25/17 19:30 91 26 123/68 98 Mechanical Ventilator 70 06/25/17 19:12 98 35 70 06/25/17 19:00 102 23 95/62 95 Mechanical Ventilator 70 06/25/17 18:30 103 35 119/68 100 Mechanical Ventilator 70 06/25/17 18:00 98 35 119/68 100 Mechanical Ventilator 70 06/25/17 17:30 95 32 101/56 100 Mechanical Ventilator 70 06/25/17 17:02 94 24 40 06/25/17 17:00 91 28 101/56 100 Mechanical Ventilator 70 06/25/17 16:30 93 30 101/56 100 Mechanical Ventilator 70 06/25/17 16:00 97.8 92 27 116/66 100 Mechanical Ventilator 70 06/25/17 16:00 70 06/25/17 16:00 92 06/25/17 15:30 95 28 126/47 100 Mechanical Ventilator 70 06/25/17 15:20 94 28 70 06/25/17 15:00 92 29 98/58 100 Mechanical Ventilator 70 06/25/17 14:30 93 29 98/58 100 Mechanical Ventilator 70 06/25/17 14:15 120/63 06/25/17 14:00 96 31 120/63 100 Mechanical Ventilator 70 06/25/17 13:30 93 30 110/64 100 Mechanical Ventilator 70 06/25/17 13:00 91 31 105/58 100 Mechanical Ventilator 70 06/25/17 12:44 93 113/58 06/25/17 12:40 88 28 70 06/25/17 12:30 90 30 103/58 100 Mechanical Ventilator 70 06/25/17 12:00 70 06/25/17 12:00 98.6 91 29 101/59 100 Mechanical Ventilator 70 06/25/17 12:00 89 06/25/17 11:30 90 30 110/66 100 Mechanical Ventilator 70 06/25/17 11:25 87 26 70 Intake and Output 06/25/17 06/26/17 19:00 07:00 Intake Total 376.0 ml 565.5 ml Output Total 0 ml 0 ml Balance 376.0 ml 565.5 ml IV Total 171.0 ml 85.5 ml Tube Feeding 205 ml 480 ml Output Urine Total 0 ml 0 ml # Voids 1 # Bowel Movements 1 Laboratory Tests 06/25/17 15:59: Arterial Blood pH 7.413, Arterial Blood Partial Pressure CO2 35.6, Arterial Blood Partial Pressure O2 267.6H, Arterial Blood HCO3 22.2, Arterial Blood Oxygen Saturation 99.4H, Arterial Blood Base Excess -2.0, Jones Test Positive 06/26/17 04:45: Random Vancomycin Level 28.8 06/26/17 09:30: White Blood Count 13.2H, Red Blood Count 3.31L, Hemoglobin 9.0L, Hematocrit 28.3L, Mean Corpuscular Volume 85, Mean Corpuscular Hemoglobin 27.1, Mean Corpuscular Hemoglobin Concent 31.7L, Red Cell Distribution Width 16.7H, Platelet Count 242, Mean Platelet Volume 6.6, Neutrophils (%) (Auto) 79.9H, Lymphocytes (%) (Auto) 12.5L, Monocytes (%) (Auto) 6.7, Eosinophils (%) (Auto) 0.7, Basophils (%) (Auto) 0.3, Sodium Level 139, Potassium Level 3.6, Chloride Level 103, Carbon Dioxide Level 21, Anion Gap 15, Blood Urea Nitrogen 71H, Creatinine 5.4H, Estimat Glomerular Filtration Rate , Glucose Level 174H, Calcium Level 8.2L, Total Bilirubin 1.4H, Direct Bilirubin 1.1H, Aspartate Amino Transf (AST/SGOT) 39H, Alanine Aminotransferase (ALT/SGPT) 37, Alkaline Phosphatase 264H, Total Protein 6.7, Albumin 1.3L, Globulin 5.4, Albumin/ Globulin Ratio 0.2L Height (Feet): 5 Height (Inches): 10.00 Weight (Pounds): 168 General Appearance: confused, other - intubated EENT: normal ENT inspection Neck: normal alignment Cardiovascular: regular rhythm, tachycardia Respiratory/Chest: rhonchi - bilaterally Abdomen: soft Extremities: trace edema Neurologic: disoriented LEONORA HUI Jun 26, 2017 11:09
--- NOTE | 2017-06-26 11:17 | Diagnostic Imaging Report ---
Indication: Reason For Exam: COUGH Technique: One view of the chest Comparison: 06/24/2017 Findings: Left-sided pleural effusion is again demonstrated. Stable satisfactory positions of endotracheal tube, nasogastric tube, left jugular temporary dialysis catheter. Granulomatous calcifications are again demonstrated at the right lung base, more evident previously. Findings are unchanged Impression: Unchanged, over 2 days, findings as above.
[2017-06-26] MEDS: Cefepime 1gm/D5W 55ml IVPB SCH ×2 (12:00)
[2017-06-26] MEDS ORDERED: Tubing IV Secondary IV ONE (17:04)
[2017-06-26] MEDS: DOPamine 400mg/250ml 250 ML IV SCH (20:45)
[2017-06-26] MEDS: Dyna-Hex 2% Top Sol 2oz TOPIC SCH (20:53)
[2017-06-26] MEDS: Epogen (for ESRD on dialysis) SUBQ SCH (21:01)
--- NOTE | 2017-06-26 21:35 | Pulmonolgy Critical Care Note ---
Critical Care - Asmt/Plan Assessment/Plan: 1. Respiratory failure. 2. Sepsis with shock. 3. Possible dialysis catheter sepsis 4. Stroke with dementia and right hemiparesis. 5. Diabetes. pressor, titrate map greater than 65 mmhg still on vent, weaning daily as tolerated nebs and suction abx per id wound care watch io, may need thoracentesis TF and asp risk disc w RN Time Spent (Minutes): 50 Critical Care - Objective Last 24 Hour Vital Signs Date Time Temp Pulse Resp B/P (MAP) Pulse Ox O2 Delivery O2 Flow Rate FiO2 06/26/17 21:30 93 36 40 06/26/17 20:45 88/45 06/26/17 20:30 93 36 88/45 100 Mechanical Ventilator 40 06/26/17 20:00 84 06/26/17 20:00 98.5 93 29 110/54 100 Mechanical Ventilator 40 06/26/17 20:00 40 06/26/17 19:30 84 36 97/44 100 Mechanical Ventilator 40 06/26/17 19:00 85 22 97/46 100 Mechanical Ventilator 40 06/26/17 18:58 90 22 40 06/26/17 18:30 87 22 80/43 100 Mechanical Ventilator 40 06/26/17 18:00 90 22 106/49 98 Mechanical Ventilator 40 06/26/17 17:30 88 26 107/52 100 Mechanical Ventilator 40 06/26/17 17:00 91 28 91/48 100 Mechanical Ventilator 40 06/26/17 16:30 92 28 93/49 100 Mechanical Ventilator 40 06/26/17 16:28 92 24 40 06/26/17 16:00 50 06/26/17 16:00 90 06/26/17 16:00 98.3 93 26 95/47 100 Mechanical Ventilator 50 06/26/17 15:30 96 30 96/49 100 Mechanical Ventilator 50 06/26/17 15:04 97 32 50 06/26/17 15:00 95 30 94/49 97 Mechanical Ventilator 50 06/26/17 14:30 94 30 97/50 100 Mechanical Ventilator 50 06/26/17 14:01 96/51 06/26/17 14:00 97 25 97/40 100 Mechanical Ventilator 50 06/26/17 13:30 90 25 96/51 100 Mechanical Ventilator 50 06/26/17 13:00 92 29 96/48 100 Mechanical Ventilator 50 06/26/17 12:43 89 27 50 06/26/17 12:30 89 29 138/64 100 Mechanical Ventilator 70 06/26/17 12:00 98.5 89 30 100/49 100 Mechanical Ventilator 70 06/26/17 12:00 97 06/26/17 12:00 50 06/26/17 11:30 89 20 93/52 100 Mechanical Ventilator 70 06/26/17 11:27 90 25 60 06/26/17 11:00 89 22 95/50 100 Mechanical Ventilator 70 06/26/17 10:30 85 23 95/49 100 Mechanical Ventilator 70 06/26/17 10:00 89 26 93/50 100 Mechanical Ventilator 70 06/26/17 09:55 89 25 60 06/26/17 09:30 89 26 106/40 100 Mechanical Ventilator 70 06/26/17 09:00 90 31 106/53 100 Mechanical Ventilator 70 06/26/17 09:00 89 26 106/40 100 Mechanical Ventilator 70 06/26/17 08:30 84 30 110/48 100 Mechanical Ventilator 70 06/26/17 08:00 87 06/26/17 08:00 98.4 87 30 110/49 100 Mechanical Ventilator 70 06/26/17 08:00 70 06/26/17 07:30 88 30 98/52 100 Mechanical Ventilator 70 06/26/17 07:26 88 24 70 06/26/17 07:00 87 30 102/48 100 Mechanical Ventilator 70 06/26/17 06:30 89 30 98/48 100 Mechanical Ventilator 70 06/26/17 06:00 84 29 97/52 100 Mechanical Ventilator 70 06/26/17 06:00 89 30 98/48 100 Mechanical Ventilator 70 06/26/17 05:30 90 29 105/52 100 Mechanical Ventilator 70 06/26/17 05:14 92 30 70 06/26/17 05:00 86 29 99/49 100 Mechanical Ventilator 70 06/26/17 04:30 89 31 93/47 100 Mechanical Ventilator 70 06/26/17 04:00 91 06/26/17 04:00 97.8 91 28 94/49 100 Mechanical Ventilator 70 06/26/17 04:00 70 06/26/17 03:30 88 28 96/47 100 Mechanical Ventilator 70 06/26/17 03:15 98 27 70 06/26/17 03:00 94 31 85/44 100 Mechanical Ventilator 70 06/26/17 02:30 98 27 89/46 100 Mechanical Ventilator 70 06/26/17 02:00 99 30 92/48 100 Mechanical Ventilator 70 06/26/17 02:00 98 27 89/46 100 Mechanical Ventilator 70 06/26/17 01:30 100 28 111/61 100 Mechanical Ventilator 70 06/26/17 01:21 94 27 70 06/26/17 01:00 95 27 99/45 100 Mechanical Ventilator 70 06/26/17 00:30 95 30 95/47 100 Mechanical Ventilator 70 06/26/17 00:00 97.9 98 30 95/49 100 Mechanical Ventilator 70 06/25/17 23:30 96 30 111/51 100 Mechanical Ventilator 70 06/25/17 23:14 95 32 70 06/25/17 23:00 95 32 99/49 100 Mechanical Ventilator 70 06/25/17 22:30 96 32 103/49 100 Mechanical Ventilator 70 06/25/17 22:00 96 32 103/49 100 Mechanical Ventilator 70 06/25/17 22:00 92 35 102/44 100 Mechanical Ventilator 70 Status: obtunded Condition: critical Lungs: rhonchi Heart: HR/BP unstable Abdomen: soft, non-tender Extremities: edema Accucheck: 141 Blood Sugars: BS not controlled Critical Care - Subjective ROS Limited/Unobtainable: Yes Condition: critical FI02: 40 Vent Support Breath Rate: 20 Vent Support Mode: AC Vent Tidal Volume: 500 Sputum Amount: Small PEEP: 5.0 PIP: 21 Tube Feeding Amount: 0 I&O: Intake and Output 06/25/17 06/26/17 19:00 07:00 Intake Total 376.0 ml 565.5 ml Output Total 0 ml 0 ml Balance 376.0 ml 565.5 ml IV Total 171.0 ml 85.5 ml Tube Feeding 205 ml 480 ml Output Urine Total 0 ml 0 ml # Voids 1 # Bowel Movements 1 Subjective: remains afebrile cxr today unchanged, effusion left intubated on the vent tachypnea noted nypoxemia as well tolerating tf no bleeding noted positive uop agitated at times. ET-Tube: 8.0 ET Position: 23 Labs: Laboratory Tests Test 06/26/17 04:45 06/26/17 09:30 Random Vancomycin Level 28.8 ug/mL White Blood Count 13.2 K/UL (4.8-10.8) H Red Blood Count 3.31 M/UL (4.70-6.10) L Hemoglobin 9.0 G/DL (14.2-18.0) L Hematocrit 28.3 % (42.0-52.0) L Mean Corpuscular Volume 85 FL (80-99) Mean Corpuscular Hemoglobin 27.1 PG (27.0-31.0) Mean Corpuscular Hemoglobin Concent 31.7 G/DL (32.0-36.0) L Red Cell Distribution Width 16.7 % (11.6-14.8) H Platelet Count 242 K/UL (150-450) Mean Platelet Volume 6.6 FL (6.5-10.1) Neutrophils (%) (Auto) 79.9 % (45.0-75.0) H Lymphocytes (%) (Auto) 12.5 % (20.0-45.0) L Monocytes (%) (Auto) 6.7 % (1.0-10.0) Eosinophils (%) (Auto) 0.7 % (0.0-3.0) Basophils (%) (Auto) 0.3 % (0.0-2.0) Sodium Level 139 MMOL/L (136-145) Potassium Level 3.6 MMOL/L (3.5-5.1) Chloride Level 103 MMOL/L (98-107) Carbon Dioxide Level 21 MMOL/L (21-32) Anion Gap 15 mmol/L (5-15) Blood Urea Nitrogen 71 mg/dL (7-18) H Creatinine 5.4 MG/DL (0.55-1.30) H Estimat Glomerular Filtration Rate mL/min (>60) Glucose Level 174 MG/DL (74-106) H Calcium Level 8.2 MG/DL (8.5-10.1) L Total Bilirubin 1.4 MG/DL (0.2-1.0) H Direct Bilirubin 1.1 MG/DL (0.0-0.3) H Aspartate Amino Transf (AST/SGOT) 39 U/L (15-37) H Alanine Aminotransferase (ALT/SGPT) 37 U/L (12-78) Alkaline Phosphatase 264 U/L (46-116) H Total Protein 6.7 G/DL (6.4-8.2) Albumin 1.3 G/DL (3.4-5.0) L Globulin 5.4 g/dL Albumin/Globulin Ratio 0.2 (1.0-2.7) L Current Medications Medications (Trade) Dose Ordered Sig/Jaime Route PRN Reason Start Time Stop Time Status Last Admin Dose Admin Acetaminophen (Tylenol) 650 mg Q4H PRN RECTAL Prn Headache/Temp > 101 06/18/17 21:00 07/18/17 20:59 06/20/17 12:42 Aspirin (ASA) 81 mg DAILY NG 06/19/17 19:00 07/19/17 18:59 06/26/17 09:05 Cefepime HCl 1 gm/ Dextrose 55 ml @ 110 mls/hr Q24H IVPB 06/22/17 11:00 06/29/17 10:59 06/26/17 12:00 Chlorhexidine Gluconate (Kati-Hex 2%) 1 applic Q24H TOPIC 06/19/17 20:00 07/19/17 19:59 06/26/17 20:53 Dextrose (Dextrose 50%) STAT PRN IV Hypoglycemia 06/19/17 13:00 07/19/17 12:59 06/23/17 05:35 Dopamine HCl/ Dextrose 250 ml @ 0 mls/hr Q24H IV 06/18/17 20:45 07/18/17 20:44 06/18/17 21:34 Epoetin Russ (Procrit (for ESRD on dialysis)) 5,000 units MON-MON-MON SUBQ 06/21/17 21:00 07/21/17 20:59 06/26/17 21:01 Heparin Sodium (Porcine) (Heparin 5000 units/ml) 5,000 units EVERY 12 HOURS SUBQ 06/18/17 21:00 07/18/17 20:59 06/26/17 21:03 Insulin Aspart (NovoLOG) EVERY 6 HOURS SUBQ 06/19/17 18:00 07/19/17 17:59 06/26/17 18:06 Lansoprazole (Prevacid) 30 mg DAILY GT 06/19/17 09:00 07/19/17 08:59 06/26/17 09:05 Norepinephrine Bitartrate 4 mg/ Dextrose 250 ml @ 0 mls/hr Q24H IV 06/19/17 14:15 07/19/17 12:29 06/21/17 02:04 Phenylephrine HCl 100 mg/Sodium Chloride 250 ml @ 0 mls/hr Q24H IV 06/19/17 03:00 07/19/17 02:59 06/25/17 12:44 Sodium Chloride 1,000 ml @ 500 mls/hr Q2H PRN IVLG sbp<90 during hd 06/27/17 11:09 07/27/17 11:08 Vancomycin HCl (Vanco rx to dose) 1 ea DAILY PRN MISC Per rx protocol 06/19/17 02:45 07/19/17 02:44 LALO CUETO DO Jun 26, 2017 21:35
[2017-06-27] VITALS (29 sets, daily range): BP systolic 80–105; BP diastolic 40–62
[2017-06-27] MEDS: NovoLOG Insulin Flexpen SUBQ SCH ×4 (00:11→18:18)
[2017-06-27] MEDS: Phenylephrine 100 MG in NS 240 ML IV SCH (01:31)
--- NOTE | 2017-06-27 03:30 | Progress Note ---
DATE: 06/26/2017 CARDIOLOGY PROGRESS NOTE SUBJECTIVE: The patient remains in the Intensive Care Unit. Condition remains critical. Prognosis remains guarded. The patient remains on pressors. He remains on ventilator support. OBJECTIVE: VITAL SIGNS: Blood pressure is 88/45, pulse 93, respiratory rate 36. LUNGS: Bilateral breath sounds. Scattered rhonchi and rales as well. HEART: Regular rhythm and rate. Normal S1, S2. ABDOMEN: Soft. EXTREMITIES: 1+ dependent edema. Catheter site clean and dry. LABORATORY AND DIAGNOSTIC DATA: White count 13 and hemoglobin 9. Potassium 3.6. Albumin 1.3. ABG yesterday, 7.41, 36, 267. Chest x-ray today is reviewed and notable for left-sided pleural effusion and left jugular dialysis catheter. IMPRESSION: 1. Respiratory failure. 2. Healthcare-acquired pneumonia. 3. Pleural effusion. 4. Acute on chronic diastolic congestive heart failure. 5. End-stage renal disease. 6. Sepsis with shock. 7. Multiorgan system failure. 8. Advanced dementia. 9. MRSA sepsis. PLAN: 1. DNR. 2. Taper pressors. 3. Hemodialysis with limited ultrafiltration. 4. Broad-spectrum antimicrobials. Gurdeep Harvey M.D. DR: Liana JOB#: [id number] CC:
[2017-06-27] MEDS: Aspirin Baby 81mg NG SCH (08:47)
[2017-06-27] MEDS: Heparin 5000 units/ml inj SUBQ SCH ×2 (09:01→22:09)
--- NOTE | 2017-06-27 09:26 | General Progress Note ---
Assessment/Plan Problem List: (1) Catheter-related bloodstream infection ICD Codes: T80.211A - Bloodstream infection due to central venous catheter, initial encounter SNOMED: 025378705 (2) Renal failure ICD Codes: N19 - Unspecified kidney failure SNOMED: 57168646 (3) Septic shock ICD Codes: A41.9 - Sepsis, unspecified organism; R65.21 - Severe sepsis with septic shock SNOMED: 56620995 (4) Respiratory failure ICD Codes: J96.90 - Respiratory failure, unspecified, unspecified whether with hypoxia or hypercapnia SNOMED: 964734772 (5) Malnutrition of moderate degree ICD Codes: E44.0 - Moderate protein-calorie malnutrition SNOMED: 483817409 (6) End-stage renal disease ICD Codes: N18.6 - End stage renal disease SNOMED: 92438596 (7) Healthcare-associated pneumonia ICD Codes: J18.9 - Pneumonia, unspecified organism SNOMED: 597387635 Status: stable, unchanged Assessment/Plan cont iv abx HD as tolerated. wean pressors as able wean vent resp rx feeds dvt/stress ulcer prophyalxis critical and guarded dnr Subjective ROS Limited/Unobtainable: No Constitutional: Reports: malaise, weakness HEENT: Reports: no symptoms Cardiovascular: Reports: no symptoms Respiratory: Reports: shortness of breath Gastrointestinal/Abdominal: Reports: difficulty swallowing Genitourinary: Reports: no symptoms Neurologic/Psychiatric: Reports: pre-existing deficit Endocrine: Reports: no symptoms Hematologic/Lymphatic: Reports: anemia Allergies: Coded Allergies: No Known Allergies (Unverified , 06/18/17) All Systems: reviewed and negative except above Subjective remains intubated. off derrick. multiple positive cultures noted. dialysis catheter removed. remains poorly responsive at baseline Objective Last 24 Hour Vital Signs Date Time Temp Pulse Resp B/P (MAP) Pulse Ox O2 Delivery O2 Flow Rate FiO2 06/27/17 09:00 91 27 83/44 100 Mechanical Ventilator 60 06/27/17 08:00 60 06/27/17 08:00 98.4 86 24 86/43 100 Mechanical Ventilator 60 06/27/17 08:00 83 06/27/17 07:00 89 31 92/42 100 Mechanical Ventilator 40 06/27/17 06:50 87 25 60 06/27/17 06:00 87 23 90/44 100 Mechanical Ventilator 40 06/27/17 05:15 88 23 60 06/27/17 05:00 97 21 95/44 100 Mechanical Ventilator 40 06/27/17 04:30 91 22 89/44 100 Mechanical Ventilator 40 06/27/17 04:00 40 06/27/17 04:00 97.4 90 24 90/40 100 Mechanical Ventilator 40 06/27/17 04:00 90 06/27/17 03:30 90 26 95/49 100 Mechanical Ventilator 40 06/27/17 03:06 83 22 60 06/27/17 03:00 85 21 104/51 100 Mechanical Ventilator 40 06/27/17 02:30 86 23 105/47 100 Mechanical Ventilator 40 06/27/17 02:00 84 22 95/62 100 Mechanical Ventilator 40 06/27/17 01:31 81 99/45 06/27/17 01:30 85 24 104/54 100 Mechanical Ventilator 40 06/27/17 01:18 81 34 40 06/27/17 01:00 82 22 99/45 100 Mechanical Ventilator 40 06/27/17 00:30 87 22 104/54 100 Mechanical Ventilator 40 06/27/17 00:00 98.6 93 23 96/43 100 Mechanical Ventilator 40 06/27/17 00:00 40 06/27/17 00:00 93 06/26/17 23:30 77 21 87/43 100 Mechanical Ventilator 40 06/26/17 23:09 82 40 40 06/26/17 23:00 82 21 98/44 100 Mechanical Ventilator 40 06/26/17 22:30 82 28 90/42 100 Mechanical Ventilator 40 06/26/17 22:00 86 27 91/44 100 Mechanical Ventilator 40 06/26/17 21:30 93 36 40 06/26/17 21:30 82 29 104/49 100 Mechanical Ventilator 40 06/26/17 21:00 98 34 119/46 100 Mechanical Ventilator 40 06/26/17 20:45 88/45 06/26/17 20:30 93 36 88/45 100 Mechanical Ventilator 40 06/26/17 20:00 84 06/26/17 20:00 98.5 93 29 110/54 100 Mechanical Ventilator 40 06/26/17 20:00 40 06/26/17 19:30 84 36 97/44 100 Mechanical Ventilator 40 06/26/17 19:00 85 22 97/46 100 Mechanical Ventilator 40 06/26/17 18:58 90 22 40 06/26/17 18:30 87 22 80/43 100 Mechanical Ventilator 40 06/26/17 18:00 90 22 106/49 98 Mechanical Ventilator 40 06/26/17 17:30 88 26 107/52 100 Mechanical Ventilator 40 06/26/17 17:00 91 28 91/48 100 Mechanical Ventilator 40 06/26/17 16:30 92 28 93/49 100 Mechanical Ventilator 40 06/26/17 16:28 92 24 40 06/26/17 16:00 50 06/26/17 16:00 90 06/26/17 16:00 98.3 93 26 95/47 100 Mechanical Ventilator 50 06/26/17 15:30 96 30 96/49 100 Mechanical Ventilator 50 06/26/17 15:04 97 32 50 06/26/17 15:00 95 30 94/49 97 Mechanical Ventilator 50 06/26/17 14:30 94 30 97/50 100 Mechanical Ventilator 50 06/26/17 14:01 96/51 06/26/17 14:00 97 25 97/40 100 Mechanical Ventilator 50 06/26/17 13:30 90 25 96/51 100 Mechanical Ventilator 50 06/26/17 13:00 92 29 96/48 100 Mechanical Ventilator 50 06/26/17 12:43 89 27 50 06/26/17 12:30 89 29 138/64 100 Mechanical Ventilator 70 06/26/17 12:00 98.5 89 30 100/49 100 Mechanical Ventilator 70 06/26/17 12:00 97 06/26/17 12:00 50 06/26/17 11:30 89 20 93/52 100 Mechanical Ventilator 70 06/26/17 11:27 90 25 60 06/26/17 11:00 89 22 95/50 100 Mechanical Ventilator 70 06/26/17 10:30 85 23 95/49 100 Mechanical Ventilator 70 06/26/17 10:00 89 26 93/50 100 Mechanical Ventilator 70 06/26/17 09:55 89 25 60 06/26/17 09:30 89 26 106/40 100 Mechanical Ventilator 70 Intake and Output 06/26/17 06/27/17 19:00 07:00 Intake Total 568.5 ml 421.5 ml Output Total 0 ml Balance 568.5 ml 421.5 ml Intake Free Water 50 ml IV Total 168.5 ml 31.5 ml Tube Feeding 350 ml 390 ml Output Urine Total 0 ml # Voids 2 2 # Bowel Movements 3 5 Laboratory Tests 06/26/17 09:30: White Blood Count 13.2H, Red Blood Count 3.31L, Hemoglobin 9.0L, Hematocrit 28.3L, Mean Corpuscular Volume 85, Mean Corpuscular Hemoglobin 27.1, Mean Corpuscular Hemoglobin Concent 31.7L, Red Cell Distribution Width 16.7H, Platelet Count 242, Mean Platelet Volume 6.6, Neutrophils (%) (Auto) 79.9H, Lymphocytes (%) (Auto) 12.5L, Monocytes (%) (Auto) 6.7, Eosinophils (%) (Auto) 0.7, Basophils (%) (Auto) 0.3, Sodium Level 139, Potassium Level 3.6, Chloride Level 103, Carbon Dioxide Level 21, Anion Gap 15, Blood Urea Nitrogen 71H, Creatinine 5.4H, Estimat Glomerular Filtration Rate , Glucose Level 174H, Calcium Level 8.2L, Total Bilirubin 1.4H, Direct Bilirubin 1.1H, Aspartate Amino Transf (AST/SGOT) 39H, Alanine Aminotransferase (ALT/SGPT) 37, Alkaline Phosphatase 264H, Total Protein 6.7, Albumin 1.3L, Globulin 5.4, Albumin/ Globulin Ratio 0.2L Height (Feet): 5 Height (Inches): 10.00 Weight (Pounds): 176 Objective General Appearance: WD/WN, lethargic, confused Neck: supple Cardiovascular: regular rhythm Respiratory/Chest: chest wall non-tender, lungs clear, normal breath sounds, no respiratory distress Abdomen: normal bowel sounds, non tender, soft, no organomegaly, no mass Edema: no edema noted Arm (L), no edema noted Arm (R), no edema noted Leg (L), no edema noted Leg (R), no edema noted Pedal (L), no edema noted Pedal (R), no edema noted Generalized Neurologic: unresponsive, aphasia KEENA BRANDT Jun 27, 2017 09:26
--- NOTE | 2017-06-27 09:47 | Nephrology Progress Note ---
Assessment/Plan Problem List: (1) Healthcare-associated pneumonia (2) Malnutrition of moderate degree (3) End-stage renal disease (4) Respiratory failure (5) Septic shock Plan , meds reviewed for eskd,hypotension, mrsa sepsis, he isunable to sign as critically ill, hd via new cath 06/27 , flow variable observe Subjective ROS Limited/Unobtainable: Yes Objective Objective Last 24 Hour Vital Signs Date Time Temp Pulse Resp B/P (MAP) Pulse Ox O2 Delivery O2 Flow Rate FiO2 06/27/17 09:00 91 27 83/44 100 Mechanical Ventilator 60 06/27/17 08:40 82 22 60 06/27/17 08:00 60 06/27/17 08:00 98.4 86 24 86/43 100 Mechanical Ventilator 60 06/27/17 08:00 83 06/27/17 07:00 89 31 92/42 100 Mechanical Ventilator 40 06/27/17 06:50 87 25 60 06/27/17 06:00 87 23 90/44 100 Mechanical Ventilator 40 06/27/17 05:15 88 23 60 06/27/17 05:00 97 21 95/44 100 Mechanical Ventilator 40 06/27/17 04:30 91 22 89/44 100 Mechanical Ventilator 40 06/27/17 04:00 40 06/27/17 04:00 97.4 90 24 90/40 100 Mechanical Ventilator 40 06/27/17 04:00 90 06/27/17 03:30 90 26 95/49 100 Mechanical Ventilator 40 06/27/17 03:06 83 22 60 06/27/17 03:00 85 21 104/51 100 Mechanical Ventilator 40 06/27/17 02:30 86 23 105/47 100 Mechanical Ventilator 40 06/27/17 02:00 84 22 95/62 100 Mechanical Ventilator 40 06/27/17 01:31 81 99/45 18 01:30 85 24 104/54 100 Mechanical Ventilator 40 06/27/17 01:18 81 34 40 06/27/17 01:00 82 22 99/45 100 Mechanical Ventilator 40 06/27/17 00:30 87 22 104/54 100 Mechanical Ventilator 40 06/27/17 00:00 98.6 93 23 96/43 100 Mechanical Ventilator 40 06/27/17 00:00 40 06/27/17 00:00 93 06/26/17 23:30 77 21 87/43 100 Mechanical Ventilator 40 06/26/17 23:09 82 40 40 06/26/17 23:00 82 21 98/44 100 Mechanical Ventilator 40 06/26/17 22:30 82 28 90/42 100 Mechanical Ventilator 40 06/26/17 22:00 86 27 91/44 100 Mechanical Ventilator 40 06/26/17 21:30 93 36 40 06/26/17 21:30 82 29 104/49 100 Mechanical Ventilator 40 06/26/17 21:00 98 34 119/46 100 Mechanical Ventilator 40 06/26/17 20:45 88/45 06/26/17 20:30 93 36 88/45 100 Mechanical Ventilator 40 06/26/17 20:00 84 06/26/17 20:00 98.5 93 29 110/54 100 Mechanical Ventilator 40 06/26/17 20:00 40 06/26/17 19:30 84 36 97/44 100 Mechanical Ventilator 40 06/26/17 19:00 85 22 97/46 100 Mechanical Ventilator 40 06/26/17 18:58 90 22 40 06/26/17 18:30 87 22 80/43 100 Mechanical Ventilator 40 06/26/17 18:00 90 22 106/49 98 Mechanical Ventilator 40 06/26/17 17:30 88 26 107/52 100 Mechanical Ventilator 40 06/26/17 17:00 91 28 91/48 100 Mechanical Ventilator 40 06/26/17 16:30 92 28 93/49 100 Mechanical Ventilator 40 06/26/17 16:28 92 24 40 06/26/17 16:00 50 06/26/17 16:00 90 06/26/17 16:00 98.3 93 26 95/47 100 Mechanical Ventilator 50 06/26/17 15:30 96 30 96/49 100 Mechanical Ventilator 50 06/26/17 15:04 97 32 50 06/26/17 15:00 95 30 94/49 97 Mechanical Ventilator 50 06/26/17 14:30 94 30 97/50 100 Mechanical Ventilator 50 06/26/17 14:01 96/51 06/26/17 14:00 97 25 97/40 100 Mechanical Ventilator 50 06/26/17 13:30 90 25 96/51 100 Mechanical Ventilator 50 06/26/17 13:00 92 29 96/48 100 Mechanical Ventilator 50 06/26/17 12:43 89 27 50 06/26/17 12:30 89 29 138/64 100 Mechanical Ventilator 70 06/26/17 12:00 98.5 89 30 100/49 100 Mechanical Ventilator 70 06/26/17 12:00 97 06/26/17 12:00 50 06/26/17 11:30 89 20 93/52 100 Mechanical Ventilator 70 06/26/17 11:27 90 25 60 06/26/17 11:00 89 22 95/50 100 Mechanical Ventilator 70 06/26/17 10:30 85 23 95/49 100 Mechanical Ventilator 70 06/26/17 10:00 89 26 93/50 100 Mechanical Ventilator 70 06/26/17 09:55 89 25 60 Intake and Output 06/26/17 06/27/17 19:00 07:00 Intake Total 568.5 ml 421.5 ml Output Total 0 ml Balance 568.5 ml 421.5 ml Intake Free Water 50 ml IV Total 168.5 ml 31.5 ml Tube Feeding 350 ml 390 ml Output Urine Total 0 ml # Voids 2 2 # Bowel Movements 3 5 Height (Feet): 5 Height (Inches): 10.00 Weight (Pounds): 176 General Appearance: confused EENT: other - intubated Neck: normal alignment, supple Cardiovascular: regular rhythm, tachycardia Respiratory/Chest: rhonchi - bilaterally Extremities: trace edema Neurologic: disoriented LEONORA HUI Jun 27, 2017 09:47
[2017-06-27] MEDS: Cefepime 1gm/D5W 55ml IVPB SCH ×2 (11:21)
--- NOTE | 2017-06-27 11:39 | Infectious Diseases Prog Note ---
"Assessment/Plan Assessment/Plan antibiotics : vancomycin iv, cefepime A 1. MRSA sepsis s/p catheter removal 2. septic shock 3. respiratory failure 4. renal failure 5. staph aureus | enterobacter pneumonia 6. leucocytosis P 1. continue vancomycin iv, cefepime 2. will follow up cultures 3. repeat blood cultures Subjective ROS Limited/Unobtainable: Yes Allergies: Coded Allergies: No Known Allergies (Unverified , 06/18/17) Objective Vital Signs Last 24 Hour Vital Signs Date Time Temp Pulse Resp B/P (MAP) Pulse Ox O2 Delivery O2 Flow Rate FiO2 06/27/17 11:00 97 30 86/42 100 Mechanical Ventilator 60 06/27/17 10:42 95 28 55 06/27/17 10:00 97 26 84/42 100 Mechanical Ventilator 60 06/27/17 09:00 91 27 83/44 100 Mechanical Ventilator 60 06/27/17 08:40 82 22 60 06/27/17 08:00 60 06/27/17 08:00 98.4 86 24 86/43 100 Mechanical Ventilator 60 06/27/17 08:00 83 06/27/17 07:00 89 31 92/42 100 Mechanical Ventilator 40 06/27/17 06:50 87 25 60 06/27/18 06:00 87 23 90/44 100 Mechanical Ventilator 40 06/27/17 05:15 88 23 60 18 05:00 97 21 95/44 100 Mechanical Ventilator 40 18 04:30 91 22 89/44 100 Mechanical Ventilator 40 06/27/17 04:00 40 06/27/17 04:00 97.4 90 24 90/40 100 Mechanical Ventilator 40 06/27/17 04:00 90 06/27/17 03:30 90 26 95/49 100 Mechanical Ventilator 40 06/27/17 03:06 83 22 60 06/27/18 03:00 85 21 104/51 100 Mechanical Ventilator 40 06/27/17 02:30 86 23 105/47 100 Mechanical Ventilator 40 06/27/17 02:00 84 22 95/62 100 Mechanical Ventilator 40 18 01:31 81 99/45 06/27/17 01:30 85 24 104/54 100 Mechanical Ventilator 40 06/27/17 01:18 81 34 40 06/27/17 01:00 82 22 99/45 100 Mechanical Ventilator 40 06/27/17 00:30 87 22 104/54 100 Mechanical Ventilator 40 06/27/17 00:00 98.6 93 23 96/43 100 Mechanical Ventilator 40 06/27/17 00:00 40 06/27/17 00:00 93 06/26/17 23:30 77 21 87/43 100 Mechanical Ventilator 40 06/26/17 23:09 82 40 40 06/26/17 23:00 82 21 98/44 100 Mechanical Ventilator 40 06/26/17 22:30 82 28 90/42 100 Mechanical Ventilator 40 06/26/17 22:00 86 27 91/44 100 Mechanical Ventilator 40 06/26/17 21:30 93 36 40 06/26/17 21:30 82 29 104/49 100 Mechanical Ventilator 40 06/26/17 21:00 98 34 119/46 100 Mechanical Ventilator 40 06/26/17 20:45 88/45 06/26/17 20:30 93 36 88/45 100 Mechanical Ventilator 40 06/26/17 20:00 84 06/26/17 20:00 98.5 93 29 110/54 100 Mechanical Ventilator 40 06/26/17 20:00 40 06/26/17 19:30 84 36 97/44 100 Mechanical Ventilator 40 06/26/17 19:00 85 22 97/46 100 Mechanical Ventilator 40 06/26/17 18:58 90 22 40 06/26/17 18:30 87 22 80/43 100 Mechanical Ventilator 40 06/26/17 18:00 90 22 106/49 98 Mechanical Ventilator 40 06/26/17 17:30 88 26 107/52 100 Mechanical Ventilator 40 06/26/17 17:00 91 28 91/48 100 Mechanical Ventilator 40 06/26/17 16:30 92 28 93/49 100 Mechanical Ventilator 40 06/26/17 16:28 92 24 40 06/26/17 16:00 50 06/26/17 16:00 90 06/26/17 16:00 98.3 93 26 95/47 100 Mechanical Ventilator 50 06/26/17 15:30 96 30 96/49 100 Mechanical Ventilator 50 06/26/17 15:04 97 32 50 06/26/17 15:00 95 30 94/49 97 Mechanical Ventilator 50 06/26/17 14:30 94 30 97/50 100 Mechanical Ventilator 50 06/26/17 14:01 96/51 06/26/17 14:00 97 25 97/40 100 Mechanical Ventilator 50 06/26/17 13:30 90 25 96/51 100 Mechanical Ventilator 50 06/26/17 13:00 92 29 96/48 100 Mechanical Ventilator 50 06/26/17 12:43 89 27 50 06/26/17 12:30 89 29 138/64 100 Mechanical Ventilator 70 06/26/17 12:00 98.5 89 30 100/49 100 Mechanical Ventilator 70 06/26/17 12:00 97 06/26/17 12:00 50 Height (Feet): 5 Height (Inches): 10.00 Weight (Pounds): 176 Respiratory/Chest: lungs clear Cardiovascular: normal rate, regular rhythm, no gallop/murmur Abdomen: soft, non tender Extremities: no edema, other - left IJ catheter ARTIS SANTIAGO Jun 27, 2017 11:39"
--- NOTE | 2017-06-27 13:43 | Pulmonology Progress Note ---
Assessment/Plan Assessment/Plan 1. Respiratory failure. 2. Sepsis with shock. 3. Dialysis catheter sepsis 4. Stroke with dementia and right hemiparesis. 5. Diabetes. still requires pressors, titrate still on vent, not tolerating weaning nebs and suction abx per id wound care TF and asp risk disc w RN Subjective ROS Limited/Unobtainable: Yes Allergies: Coded Allergies: No Known Allergies (Unverified , 06/18/17) Objective Last 24 Hour Vital Signs Date Time Temp Pulse Resp B/P (MAP) Pulse Ox O2 Delivery O2 Flow Rate FiO2 06/27/17 13:00 98 27 80/43 100 Mechanical Ventilator 55 06/27/17 12:41 98 33 50 06/27/17 12:00 55 06/27/17 12:00 96 06/27/17 12:00 98.3 97 25 98/47 100 Mechanical Ventilator 55 06/27/17 11:00 97 30 86/42 100 Mechanical Ventilator 60 06/27/17 10:42 95 28 55 06/27/17 10:00 97 26 84/42 100 Mechanical Ventilator 60 06/27/17 10:00 Mechanical Ventilator 40 06/27/17 09:00 91 27 83/44 100 Mechanical Ventilator 60 06/27/17 08:40 82 22 60 06/27/18 08:00 60 //18 08:00 98.4 86 24 86/43 100 Mechanical Ventilator 60 06/27/18 08:00 83 //18 07:00 89 31 92/42 100 Mechanical Ventilator 40 06/27/17 07:00 Mechanical Ventilator 40 06/27/17 06:50 87 25 60 //18 06:00 87 23 90/44 100 Mechanical Ventilator 40 06/27/18 05:15 88 23 60 //18 05:00 97 21 95/44 100 Mechanical Ventilator 40 06/27/18 04:30 91 22 89/44 100 Mechanical Ventilator 40 18 04:00 40 06/27/18 04:00 97.4 90 24 90/40 100 Mechanical Ventilator 40 18 04:00 90 18 03:30 90 26 95/49 100 Mechanical Ventilator 40 18 03:06 83 22 60 18 03:00 85 21 104/51 100 Mechanical Ventilator 40 06/27/17 02:30 86 23 105/47 100 Mechanical Ventilator 40 06/27/17 02:00 84 22 95/62 100 Mechanical Ventilator 40 06/27/17 01:31 81 99/45 06/27/17 01:30 85 24 104/54 100 Mechanical Ventilator 40 06/27/17 01:18 81 34 40 06/27/17 01:00 82 22 99/45 100 Mechanical Ventilator 40 06/27/17 00:30 87 22 104/54 100 Mechanical Ventilator 40 06/27/17 00:00 98.6 93 23 96/43 100 Mechanical Ventilator 40 06/27/17 00:00 40 06/27/17 00:00 93 06/26/17 23:30 77 21 87/43 100 Mechanical Ventilator 40 06/26/17 23:09 82 40 40 06/26/17 23:00 82 21 98/44 100 Mechanical Ventilator 40 06/26/17 22:30 82 28 90/42 100 Mechanical Ventilator 40 06/26/17 22:00 86 27 91/44 100 Mechanical Ventilator 40 06/26/17 21:30 93 36 40 06/26/17 21:30 82 29 104/49 100 Mechanical Ventilator 40 06/26/17 21:00 98 34 119/46 100 Mechanical Ventilator 40 06/26/17 20:45 88/45 06/26/17 20:30 93 36 88/45 100 Mechanical Ventilator 40 06/26/17 20:00 84 06/26/17 20:00 98.5 93 29 110/54 100 Mechanical Ventilator 40 06/26/17 20:00 40 06/26/17 19:30 84 36 97/44 100 Mechanical Ventilator 40 06/26/17 19:00 85 22 97/46 100 Mechanical Ventilator 40 06/26/17 18:58 90 22 40 06/26/17 18:30 87 22 80/43 100 Mechanical Ventilator 40 06/26/17 18:00 90 22 106/49 98 Mechanical Ventilator 40 06/26/17 17:30 88 26 107/52 100 Mechanical Ventilator 40 06/26/17 17:00 91 28 91/48 100 Mechanical Ventilator 40 06/26/17 16:30 92 28 93/49 100 Mechanical Ventilator 40 06/26/17 16:28 92 24 40 06/26/17 16:00 50 06/26/17 16:00 90 06/26/17 16:00 98.3 93 26 95/47 100 Mechanical Ventilator 50 06/26/17 15:30 96 30 96/49 100 Mechanical Ventilator 50 06/26/17 15:04 97 32 50 06/26/17 15:00 95 30 94/49 97 Mechanical Ventilator 50 06/26/17 14:30 94 30 97/50 100 Mechanical Ventilator 50 06/26/17 14:01 96/51 06/26/17 14:00 97 25 97/40 100 Mechanical Ventilator 50 Intake and Output 06/26/17 06/27/17 19:00 07:00 Intake Total 568.5 ml 421.5 ml Output Total 0 ml Balance 568.5 ml 421.5 ml Intake Free Water 50 ml IV Total 168.5 ml 31.5 ml Tube Feeding 350 ml 390 ml Output Urine Total 0 ml # Voids 2 2 # Bowel Movements 3 5 General Appearance: no acute distress HEENT: atraumatic Respiratory/Chest: lungs clear Cardiovascular: normal rate Current Medications Medications (Trade) Dose Ordered Sig/Jaime Route PRN Reason Start Time Stop Time Status Last Admin Dose Admin Acetaminophen (Tylenol) 650 mg Q4H PRN RECTAL Prn Headache/Temp > 101 06/18/17 21:00 07/18/17 20:59 06/20/17 12:42 Aspirin (ASA) 81 mg DAILY NG 06/19/17 19:00 07/19/17 18:59 06/27/17 08:47 Cefepime HCl 1 gm/ Dextrose 55 ml @ 110 mls/hr Q24H IVPB 06/28/17 11:00 07/04/17 23:59 Chlorhexidine Gluconate (Kati-Hex 2%) 1 applic Q24H TOPIC 06/19/17 20:00 07/19/17 19:59 06/26/17 20:53 Dextrose (Dextrose 50%) STAT PRN IV Hypoglycemia 06/19/17 13:00 07/19/17 12:59 06/23/17 05:35 Dopamine HCl/ Dextrose 250 ml @ 0 mls/hr Q24H IV 06/18/17 20:45 07/18/17 20:44 06/18/17 21:34 Epoetin Russ (Procrit (for ESRD on dialysis)) 5,000 units MON-MON-MON SUBQ 06/21/17 21:00 07/21/17 20:59 06/26/17 21:01 Heparin Sodium (Porcine) (Heparin 5000 units/ml) 5,000 units EVERY 12 HOURS SUBQ 06/18/17 21:00 07/18/17 20:59 06/27/17 09:01 Insulin Aspart (NovoLOG) EVERY 6 HOURS SUBQ 06/19/17 18:00 07/19/17 17:59 06/27/17 11:24 Lansoprazole (Prevacid) 30 mg DAILY GT 06/19/17 09:00 07/19/17 08:59 06/27/17 08:46 Norepinephrine Bitartrate 4 mg/ Dextrose 250 ml @ 0 mls/hr Q24H IV 06/19/17 14:15 07/19/17 12:29 06/21/17 02:04 Phenylephrine HCl 100 mg/Sodium Chloride 250 ml @ 0 mls/hr Q24H IV 06/19/17 03:00 07/19/17 02:59 06/27/17 01:31 Sodium Chloride 1,000 ml @ 500 mls/hr Q2H PRN IVLG sbp<90 during hd 06/27/17 11:09 07/27/17 11:08 Vancomycin HCl (Vanco rx to dose) 1 ea DAILY PRN MISC Per rx protocol 06/19/17 02:45 07/19/17 02:44 PEG MARTINEZ Jun 27, 2017 13:43
--- NOTE | 2017-06-27 13:57 | Wound Care Consultation ---
Wound Assessment Wound Assessment #1: Wound Number: 1 Wound Present on Admission: Yes New Wound: No Status Change of Wound: No Wound Location Body Site Modif: mid Wound Location Body Site: other - sacrococcygeal extending to left and right buttock Wound Type: pressure ulcer Janet Test: Does not Janet Pressure Ulcer Stage: Unstageable Wound Thickness: Full Thickness Wound Length: 5.0 Wound Width: 6.5 Wound Depth: utd Percent of Wound [place]/Red: 40 Percent of Wound Bed Yellow/Wh: 40 Percent of Wound Black/Brown: 20 - brown/whalen Wound Drainage Description: Serosanguineous Wound Drainage Amount: Moderate Wound Drainage Odor: None/Absent Tissue Surrounding Wound: Macerated Wound General Appearance: Reddened - yellow, whalen/brown, Draining, Necrotic Wound Assessment #2: Wound Number: 2 Wound Present on Admission: Yes New Wound: No Status Change of Wound: No Wound Location Body Site Modif: left, lateral Wound Location Body Site: malleolus/ankle Wound Type: pressure ulcer Janet Test: Does not Janet Pressure Ulcer Stage: IV Wound Thickness: Full Thickness Wound Length: 3.0 Wound Width: 3.0 Wound Depth: 0.3 Percent of Wound [place]/Red: 90 Percent of Wound Purple/Maroon: 10 Wound Drainage Description: Serosanguineous Wound Drainage Amount: Moderate Wound Drainage Odor: None/Absent Tissue Surrounding Wound: Macerated Wound Undermining at 9:00: 1.0 Wound General Appearance: Reddened - maroon, Draining, Bone Palpable, Muscle Visible Wound Assessment #3: Wound Number: 3 Wound Present on Admission: Yes New Wound: No Status Change of Wound: No Wound Location Body Site Modif: right Wound Location Body Site: heel Wound Type: pressure ulcer Janet Test: Does not Janet Pressure Ulcer Stage: Unstageable Wound Thickness: Full Thickness Wound Length: 1.3 Wound Width: 1.3 Wound Depth: utd Percent of Wound Bed Yellow/Wh: 100 Wound Drainage Description: Serosanguineous Wound Drainage Amount: Scant Wound Drainage Odor: None/Absent Tissue Surrounding Wound: Macerated Wound General Appearance: Draining, Necrotic Wound Assessment #4: Wound Present on Admission: Yes New Wound: No Status Change of Wound: No Wound Location Body Site: perineal area Wound Type: other - erosion Janet Test: Does not Janet Percent of Wound [place]/Red: 100 Wound Drainage Amount: None Wound Drainage Odor: None/Absent Tissue Surrounding Wound: Erythemic Wound General Appearance: Reddened, Open to air Wound Assessment #5: Wound Number: 5 Wound Present on Admission: Yes New Wound: No Status Change of Wound: No Wound Location Body Site Modif: left Wound Location Body Site: metatarsal head - 1st Wound Type: pressure ulcer Janet Test: Does not Janet Pressure Ulcer Stage: Deep Tissue Injury Wound Thickness: Full Thickness Wound Length: 2.0 Wound Width: 2.0 Wound Depth: utd Percent of Wound Black/Brown: 100 - dry brown intact. Wound Drainage Amount: None Wound Drainage Odor: None/Absent Tissue Surrounding Wound: Intact Wound General Appearance: Blackened - brown Wound Assessment #6: Wound Number: 6 Wound Present on Admission: Yes New Wound: No Status Change of Wound: No Wound Location Body Site Modif: right, mid, lateral Wound Location Body Site: foot Wound Type: pressure ulcer Janet Test: Does not Janet Pressure Ulcer Stage: Deep Tissue Injury Wound Thickness: Full Thickness Wound Length: 2.0 Wound Width: 2.0 Wound Depth: utd Percent of Wound Black/Brown: 100 - dry intact, brown color. Wound Drainage Amount: None Wound Drainage Odor: None/Absent Tissue Surrounding Wound: Intact Wound General Appearance: Blackened - brown Wound Comment Reassessment- no further deterioration present , continue wound care as recommended. #1 Sacrococcygeal unstageable extending to left and right buttock pressure ulcer - site remains as unstageable, continue wound care as recommended no further deterioration present. #2 Left lateral malleolus stage IV pressure ulcer- no further deterioration present 90% wound bed remains pink , noted undermining at 9:00 1cm #3 Right heel unstageable pressure ulcer- no further deterioration present site remains as unstageable ,continue wound care as recommended. #4 Perineal Partial thickness erosion- noted good progress decrease in erosion noted. #5 Left 1st metatarsal DTI pressure ulcer- remains as DTI. intact #6 Right lateral mid foot DTI pressure ulcer-remains as DTI.intact. Recommendation -Local wound care per protocol -Keep clean and dry -Turn and reposition -Optimize nutrition -Low air loss mattress -Offload both heels -Heel protector on both heels -Avoid shear and friction. -provide moisturizer to dry skin. -Assess and f/u accordingly for any changes of condition to skin noted ALEJANDRO FLETCHER Jun 27, 2017 13:57
[2017-06-27] MEDS: DOPamine 400mg/250ml 250 ML IV SCH (20:45)
[2017-06-27] MEDS: Dyna-Hex 2% Top Sol 2oz TOPIC SCH (20:50)
[2017-06-28] VITALS (32 sets, daily range): BP systolic 86–129; BP diastolic 41–61
[2017-06-28] MEDS: NovoLOG Insulin Flexpen SUBQ SCH ×5 (00:22→23:39)
[2017-06-28] MEDS: Phenylephrine 100 MG in NS 240 ML IV SCH (03:30)
--- NOTE | 2017-06-28 05:00 | Progress Note ---
DATE: 06/27/2017 CARDIOLOGY PROGRESS NOTE SUBJECTIVE: The patient remains in the intensive care unit, requiring pressor support. Condition remains critical. Prognosis remains guarded. He remains on ventilator. OBJECTIVE: VITAL SIGNS: Blood pressure is 80/43, pulse 98, respiratory rate 27, and afebrile. LUNGS: Coarse breath sounds. Scattered rhonchi. HEART: Regular rhythm and rate. Normal S1, S2. ABDOMEN: Soft. EXTREMITIES: Trace edema. LABORATORIES: Reviewed. IMPRESSION: 1. Respiratory failure. 2. Sepsis with shock. 3. Acute myocardial infarction. 4. Severe protein-calorie malnutrition. 5. Decubiti. 6. Dementia. 7. Healthcare-acquired pneumonia. PLAN: 1. Continue DNR. 2. Nutrition by feeding tube. 3. Hemodialysis with cautious ultrafiltration. 4. Antimicrobials per Infectious Disease analytics consultant. 5. Taper pressors. 6. Try fluid challenge. 7. Check a.m. cortisol level to assess for adrenal insufficiency. 8. Critical condition and guarded prognosis. Gurdeep Harvey M.D. DR: Liana JOB#: [id number] CC:
[2017-06-28 05:49] LABS: HEMATOCRIT 24.2 % (42.0-52.0); HEMOGLOBIN 7.7 G/DL (14.2-18.0); MEAN CORPUSCULAR VOLUME 87 FL (80-99); PLATELET COUNT 237 K/UL (150-450); RED BLOOD COUNT 2.79 M/UL (4.70-6.10); RED CELL DISTRIBUTION WIDTH 16.7 % (11.6-14.8); WHITE BLOOD COUNT 12.8 K/UL (4.8-10.8)
[2017-06-28 06:43] LABS: ALANINE AMINOTRANSFERASE 30 U/L (12-78); ALBUMIN 1.2 G/DL (3.4-5.0); ALBUMIN/GLOBULIN RATIO 0.2 (1.0-2.7); ALKALINE PHOSPHATASE 220 U/L (46-116); ANION GAP 14 mmol/L (5-15); ASPARTATE AMINO TRANSFERASE 28 U/L (15-37); BILIRUBIN,TOTAL 1.1 MG/DL (0.2-1.0); BLOOD UREA NITROGEN 68 mg/dL (7-18); CARBON DIOXIDE 21 MMOL/L (21-32); CHLORIDE 106 MMOL/L (98-107); CREATININE 5.2 MG/DL (0.55-1.30); POTASSIUM 3.7 MMOL/L (3.5-5.1); SODIUM 141 MMOL/L (136-145)
[2017-06-28 07:11] LABS: BILIRUBIN,DIRECT 0.6 MG/DL (0.0-0.3)
[2017-06-28 07:57] LABS: PHOSPHORUS 2.8 MG/DL (2.5-4.9)
--- NOTE | 2017-06-28 08:54 | General Progress Note ---
Assessment/Plan Problem List: (1) Catheter-related bloodstream infection ICD Codes: T80.211A - Bloodstream infection due to central venous catheter, initial encounter SNOMED: 271140187 (2) Renal failure ICD Codes: N19 - Unspecified kidney failure SNOMED: 49410940 (3) Septic shock ICD Codes: A41.9 - Sepsis, unspecified organism; R65.21 - Severe sepsis with septic shock SNOMED: 73473738 (4) Respiratory failure ICD Codes: J96.90 - Respiratory failure, unspecified, unspecified whether with hypoxia or hypercapnia SNOMED: 636474812 (5) Malnutrition of moderate degree ICD Codes: E44.0 - Moderate protein-calorie malnutrition SNOMED: 752020758 (6) End-stage renal disease ICD Codes: N18.6 - End stage renal disease SNOMED: 56371972 (7) Healthcare-associated pneumonia ICD Codes: J18.9 - Pneumonia, unspecified organism SNOMED: 319773287 Status: stable, not improved Assessment/Plan cont iv abx HD as tolerated. wean pressors as able wean vent resp rx feeds dvt/stress ulcer prophyalxis repeat cbc may need transfusion epo/iron critical and guarded dnr Subjective ROS Limited/Unobtainable: Yes Constitutional: Reports: malaise, weakness HEENT: Reports: no symptoms Cardiovascular: Reports: no symptoms Respiratory: Reports: shortness of breath, sputum Gastrointestinal/Abdominal: Reports: difficulty swallowing Genitourinary: Reports: no symptoms Neurologic/Psychiatric: Reports: pre-existing deficit Endocrine: Reports: no symptoms Hematologic/Lymphatic: Reports: anemia Allergies: Coded Allergies: No Known Allergies (Unverified , 06/18/17) All Systems: reviewed and negative except above Subjective remains intubated. off derrick. multiple positive cultures noted. dialysis catheter removed. remains poorly responsive at baseline decreased h/h noted. no melena or brbpr. on epo. Objective Last 24 Hour Vital Signs Date Time Temp Pulse Resp B/P (MAP) Pulse Ox O2 Delivery O2 Flow Rate FiO2 06/28/17 08:30 94 30 95/48 100 Mechanical Ventilator 30 06/28/17 08:00 30 06/28/17 08:00 98.5 96 28 86/46 100 Mechanical Ventilator 30 06/28/17 07:00 98 30 95/47 100 Mechanical Ventilator 35 06/28/17 06:58 98 25 30 1/3/18 06:00 95 30 107/50 100 Mechanical Ventilator 35 06/28/17 05:00 95 29 108/48 100 Mechanical Ventilator 35 06/28/17 04:35 96 24 30 06/28/17 04:00 98.2 95 29 110/53 100 Mechanical Ventilator 35 06/28/17 04:00 95 18 04:00 35 06/28/17 03:30 97 95/48 06/28/17 03:00 95 28 107/52 100 Mechanical Ventilator 35 06/28/17 02:55 97 29 30 06/28/17 02:00 96 30 115/54 100 Mechanical Ventilator 35 06/28/17 01:00 96 30 110/55 100 Mechanical Ventilator 35 06/28/17 00:48 93 27 30 06/28/17 00:00 35 06/28/17 00:00 97 06/28/17 00:00 98.9 96 29 95/48 100 Mechanical Ventilator 35 /2/18 23:00 97 31 102/51 100 Mechanical Ventilator 35 /2/18 22:54 91 30 35 /2/18 22:00 97 30 104/52 100 Mechanical Ventilator 35 /2/18 21:00 96 30 103/49 100 Mechanical Ventilator 35 /2/18 20:55 98 30 35 1/2/18 20:45 111/67 1/2/18 20:00 97 1/2/18 20:00 98.6 96 28 99/51 100 Mechanical Ventilator 35 1/2/18 20:00 35 1/2/18 19:00 94 28 105/49 100 Mechanical Ventilator 35 1/2/18 18:52 94 23 35 1/2/18 18:00 94 24 92/45 100 Mechanical Ventilator 35 1/2/18 17:08 98 23 35 1/2/18 17:00 97 25 85/42 100 Mechanical Ventilator 35 1/2/18 16:00 40 1/2/18 16:00 95 1/2/18 16:00 98.3 97 26 85/43 100 Mechanical Ventilator 40 1/2/18 15:00 98 24 83/43 100 Mechanical Ventilator 55 1/2/18 14:58 98 25 40 1/2/18 14:00 96 27 82/41 100 Mechanical Ventilator 55 1/2/18 13:00 98 27 80/43 100 Mechanical Ventilator 55 06/27/17 12:41 98 33 50 06/27/17 12:00 55 06/27/17 12:00 96 06/27/17 12:00 98.3 97 25 98/47 100 Mechanical Ventilator 55 06/27/17 11:00 97 30 86/42 100 Mechanical Ventilator 60 06/27/17 10:42 95 28 55 06/27/17 10:00 97 26 84/42 100 Mechanical Ventilator 60 06/27/17 10:00 Mechanical Ventilator 40 06/27/17 09:00 91 27 83/44 100 Mechanical Ventilator 60 Intake and Output 06/27/17 06/28/17 19:00 07:00 Intake Total 655 ml 793 ml Output Total 0 ml Balance 655 ml 793 ml Intake Free Water 100 ml 240 ml IV Total 55 ml 3 ml Tube Feeding 450 ml 550 ml Other 50 ml Output Urine Total 0 ml # Bowel Movements 2 4 Laboratory Tests 06/28/17 04:15: White Blood Count 12.8H, Red Blood Count 2.79L, Hemoglobin 7.7L, Hematocrit 24.2L, Mean Corpuscular Volume 87, Mean Corpuscular Hemoglobin 27.6, Mean Corpuscular Hemoglobin Concent 31.8L, Red Cell Distribution Width 16.7H, Platelet Count 237, Mean Platelet Volume 6.6, Neutrophils (%) (Auto) , Lymphocytes (%) (Auto) , Monocytes (%) (Auto) , Eosinophils (%) (Auto) , Basophils (%) (Auto) , Sodium Level 141, Potassium Level 3.7, Chloride Level 106 , Carbon Dioxide Level 21, Anion Gap 14, Blood Urea Nitrogen 68H, Creatinine 5.2H, Estimat Glomerular Filtration Rate , Glucose Level 132H, Calcium Level 8.0L, Phosphorus Level 2.8, Magnesium Level 2.4, Total Bilirubin 1.1H, Direct Bilirubin 0.6H, Aspartate Amino Transf (AST/SGOT) 28, Alanine Aminotransferase ( ALT/SGPT) 30, Alkaline Phosphatase 220H, Total Protein 6.6, Albumin 1.2L, Globulin 5.4, Albumin/Globulin Ratio 0.2L, Random Vancomycin Level 24.6 Height (Feet): 5 Height (Inches): 10.00 Weight (Pounds): 175 Objective General Appearance: WD/WN, lethargic, confused Neck: supple Cardiovascular: regular rhythm Respiratory/Chest: chest wall non-tender, lungs clear, normal breath sounds, no respiratory distress Abdomen: normal bowel sounds, non tender, soft, no organomegaly, no mass Edema: no edema noted Arm (L), no edema noted Arm (R), no edema noted Leg (L), no edema noted Leg (R), no edema noted Pedal (L), no edema noted Pedal (R), no edema noted Generalized Neurologic: unresponsive, aphasia KEENA BRANDT Jun 28, 2017 08:54
--- NOTE | 2017-06-28 09:04 | Nephrology Progress Note ---
Assessment/Plan Problem List: (1) Healthcare-associated pneumonia (2) Malnutrition of moderate degree (3) End-stage renal disease (4) Respiratory failure (5) Septic shock Plan , meds reviewed for eskd,hypotension, mrsa sepsis, he isunable to sign as critically ill, hd via new cath 06/27 , flow variable observe hd 06/29 Subjective ROS Limited/Unobtainable: Yes Objective Objective Last 24 Hour Vital Signs Date Time Temp Pulse Resp B/P (MAP) Pulse Ox O2 Delivery O2 Flow Rate FiO2 06/28/17 08:30 94 30 95/48 100 Mechanical Ventilator 30 06/28/17 08:00 30 06/28/17 08:00 98.5 96 28 86/46 100 Mechanical Ventilator 30 06/28/17 07:00 98 30 95/47 100 Mechanical Ventilator 35 06/28/17 06:58 98 25 30 06/28/17 06:00 95 30 107/50 100 Mechanical Ventilator 35 06/28/17 05:00 95 29 108/48 100 Mechanical Ventilator 35 06/28/17 04:35 96 24 30 06/28/17 04:00 98.2 95 29 110/53 100 Mechanical Ventilator 35 06/28/17 04:00 95 06/28/17 04:00 35 06/28/17 03:30 97 95/48 06/28/17 03:00 95 28 107/52 100 Mechanical Ventilator 35 06/28/17 02:55 97 29 30 06/28/17 02:00 96 30 115/54 100 Mechanical Ventilator 35 06/28/17 01:00 96 30 110/55 100 Mechanical Ventilator 35 06/28/17 00:48 93 27 30 06/28/17 00:00 35 06/28/17 00:00 97 06/28/17 00:00 98.9 96 29 95/48 100 Mechanical Ventilator 35 06/27/17 23:00 97 31 102/51 100 Mechanical Ventilator 35 06/27/17 22:54 91 30 35 06/27/17 22:00 97 30 104/52 100 Mechanical Ventilator 35 06/27/17 21:00 96 30 103/49 100 Mechanical Ventilator 35 06/27/17 20:55 98 30 35 06/27/17 20:45 111/67 06/27/17 20:00 97 06/27/17 20:00 98.6 96 28 99/51 100 Mechanical Ventilator 35 06/27/17 20:00 35 06/27/17 19:00 94 28 105/49 100 Mechanical Ventilator 35 06/27/17 18:52 94 23 35 06/27/17 18:00 94 24 92/45 100 Mechanical Ventilator 35 06/27/17 17:08 98 23 35 06/27/17 17:00 97 25 85/42 100 Mechanical Ventilator 35 06/27/17 16:00 40 06/27/17 16:00 95 06/27/17 16:00 98.3 97 26 85/43 100 Mechanical Ventilator 40 06/27/17 15:00 98 24 83/43 100 Mechanical Ventilator 55 06/27/17 14:58 98 25 40 06/27/17 14:00 96 27 82/41 100 Mechanical Ventilator 55 06/27/17 13:00 98 27 80/43 100 Mechanical Ventilator 55 06/27/17 12:41 98 33 50 06/27/17 12:00 55 06/27/17 12:00 96 06/27/17 12:00 98.3 97 25 98/47 100 Mechanical Ventilator 55 06/27/17 11:00 97 30 86/42 100 Mechanical Ventilator 60 06/27/17 10:42 95 28 55 06/27/17 10:00 97 26 84/42 100 Mechanical Ventilator 60 06/27/17 10:00 Mechanical Ventilator 40 Intake and Output 06/27/17 06/28/17 19:00 07:00 Intake Total 655 ml 793 ml Output Total 0 ml Balance 655 ml 793 ml Intake Free Water 100 ml 240 ml IV Total 55 ml 3 ml Tube Feeding 450 ml 550 ml Other 50 ml Output Urine Total 0 ml # Bowel Movements 2 4 Laboratory Tests 06/28/17 04:15: White Blood Count 12.8H, Red Blood Count 2.79L, Hemoglobin 7.7L, Hematocrit 24.2L, Mean Corpuscular Volume 87, Mean Corpuscular Hemoglobin 27.6, Mean Corpuscular Hemoglobin Concent 31.8L, Red Cell Distribution Width 16.7H, Platelet Count 237, Mean Platelet Volume 6.6, Neutrophils (%) (Auto) , Lymphocytes (%) (Auto) , Monocytes (%) (Auto) , Eosinophils (%) (Auto) , Basophils (%) (Auto) , Sodium Level 141, Potassium Level 3.7, Chloride Level 106 , Carbon Dioxide Level 21, Anion Gap 14, Blood Urea Nitrogen 68H, Creatinine 5.2H, Estimat Glomerular Filtration Rate , Glucose Level 132H, Calcium Level 8.0L, Phosphorus Level 2.8, Magnesium Level 2.4, Total Bilirubin 1.1H, Direct Bilirubin 0.6H, Aspartate Amino Transf (AST/SGOT) 28, Alanine Aminotransferase ( ALT/SGPT) 30, Alkaline Phosphatase 220H, Total Protein 6.6, Albumin 1.2L, Globulin 5.4, Albumin/Globulin Ratio 0.2L, Random Vancomycin Level 24.6 Height (Feet): 5 Height (Inches): 10.00 Weight (Pounds): 175 General Appearance: other - intubated EENT: normal ENT inspection Neck: normal alignment Cardiovascular: regular rhythm, tachycardia Respiratory/Chest: rhonchi - bilaterally Abdomen: non tender Extremities: moderate edema Neurologic: disoriented LEONORA HUI Jun 28, 2017 09:04
[2017-06-28] MEDS: Aspirin Baby 81mg NG SCH (09:19)
[2017-06-28] MEDS: Heparin 5000 units/ml inj SUBQ SCH ×2 (09:27→20:58)
[2017-06-28] MEDS ORDERED: Heparin Sod 1000 units/ml 10ml IV PRN (10:00)
[2017-06-28] MEDS: Cefepime HCl 1 GM in D5W 55 ML IVPB SCH (11:23)
--- NOTE | 2017-06-28 12:07 | Infectious Diseases Prog Note ---
"Assessment/Plan Assessment/Plan antibiotics : vancomycin iv, cefepime A 1. MRSA sepsis s/p catheter removal 2. septic shock 3. respiratory failure 4. renal failure 5. MRSA | enterobacter pneumonia 6. leucocytosis improving P 1. continue vancomycin iv, cefepime 2. will follow up cultures Subjective ROS Limited/Unobtainable: Yes Allergies: Coded Allergies: No Known Allergies (Unverified , 06/18/17) Objective Vital Signs Last 24 Hour Vital Signs Date Time Temp Pulse Resp B/P (MAP) Pulse Ox O2 Delivery O2 Flow Rate FiO2 06/28/17 11:28 85 26 30 06/28/17 11:28 91 26 Mechanical Ventilator 50 06/28/17 11:00 98 26 129/61 100 Mechanical Ventilator 30 06/28/17 10:30 93 28 104/50 100 Mechanical Ventilator 30 06/28/17 10:00 92 26 96/48 100 Mechanical Ventilator 30 06/28/17 09:30 93 26 102/45 100 Mechanical Ventilator 30 06/28/17 09:00 92 26 103/48 100 Mechanical Ventilator 30 06/28/17 08:52 89 24 30 06/28/17 08:30 94 30 95/48 100 Mechanical Ventilator 30 06/28/17 08:00 30 06/28/17 08:00 98.5 96 28 86/46 100 Mechanical Ventilator 30 06/28/17 08:00 97 06/28/17 07:00 98 30 95/47 100 Mechanical Ventilator 35 06/28/17 06:58 98 25 30 06/28/17 06:00 95 30 107/50 100 Mechanical Ventilator 35 06/28/17 05:00 95 29 108/48 100 Mechanical Ventilator 35 06/28/17 04:35 96 24 30 06/28/17 04:00 98.2 95 29 110/53 100 Mechanical Ventilator 35 06/28/17 04:00 95 06/28/17 04:00 35 06/28/17 03:30 97 95/48 06/28/17 03:00 95 28 107/52 100 Mechanical Ventilator 35 06/28/17 02:55 97 29 30 06/28/17 02:00 96 30 115/54 100 Mechanical Ventilator 35 06/28/17 01:00 96 30 110/55 100 Mechanical Ventilator 35 06/28/17 00:48 93 27 30 06/28/17 00:00 35 06/28/17 00:00 97 1/3/18 00:00 98.9 96 29 95/48 100 Mechanical Ventilator 35 06/27/17 23:00 97 31 102/51 100 Mechanical Ventilator 35 06/27/17 22:54 91 30 35 06/27/17 22:00 97 30 104/52 100 Mechanical Ventilator 35 06/27/17 21:00 96 30 103/49 100 Mechanical Ventilator 35 06/27/17 20:55 98 30 35 06/27/17 20:45 111/67 06/27/17 20:00 97 06/27/17 20:00 98.6 96 28 99/51 100 Mechanical Ventilator 35 06/27/17 20:00 35 06/27/17 19:00 94 28 105/49 100 Mechanical Ventilator 35 06/27/17 18:52 94 23 35 06/27/17 18:00 94 24 92/45 100 Mechanical Ventilator 35 06/27/17 17:08 98 23 35 06/27/17 17:00 97 25 85/42 100 Mechanical Ventilator 35 06/27/17 16:00 40 06/27/17 16:00 95 06/27/17 16:00 98.3 97 26 85/43 100 Mechanical Ventilator 40 06/27/17 15:00 98 24 83/43 100 Mechanical Ventilator 55 06/27/17 14:58 98 25 40 06/27/17 14:00 96 27 82/41 100 Mechanical Ventilator 55 06/27/17 13:00 98 27 80/43 100 Mechanical Ventilator 55 06/27/17 12:41 98 33 50 Height (Feet): 5 Height (Inches): 10.00 Weight (Pounds): 175 HEENT: other - intubated Respiratory/Chest: lungs clear Cardiovascular: normal rate, regular rhythm, no gallop/murmur Abdomen: soft, non tender Extremities: no edema, other - left IJ catheter Laboratory Tests Test 06/28/17 04:15 06/28/17 10:15 White Blood Count 12.8 K/UL (4.8-10.8) H Red Blood Count 2.79 M/UL (4.70-6.10) L Hemoglobin 7.7 G/DL (14.2-18.0) L Hematocrit 24.2 % (42.0-52.0) L Mean Corpuscular Volume 87 FL (80-99) Mean Corpuscular Hemoglobin 27.6 PG (27.0-31.0) Mean Corpuscular Hemoglobin Concent 31.8 G/DL (32.0-36.0) L Red Cell Distribution Width 16.7 % (11.6-14.8) H Platelet Count 237 K/UL (150-450) Mean Platelet Volume 6.6 FL (6.5-10.1) Neutrophils (%) (Auto) % (45.0-75.0) Lymphocytes (%) (Auto) % (20.0-45.0) Monocytes (%) (Auto) % (1.0-10.0) Eosinophils (%) (Auto) % (0.0-3.0) Basophils (%) (Auto) % (0.0-2.0) Sodium Level 141 MMOL/L (136-145) Potassium Level 3.7 MMOL/L (3.5-5.1) Chloride Level 106 MMOL/L (98-107) Carbon Dioxide Level 21 MMOL/L (21-32) Anion Gap 14 mmol/L (5-15) Blood Urea Nitrogen 68 mg/dL (7-18) H Creatinine 5.2 MG/DL (0.55-1.30) H Estimat Glomerular Filtration Rate mL/min (>60) Glucose Level 132 MG/DL (74-106) H Calcium Level 8.0 MG/DL (8.5-10.1) L Phosphorus Level 2.8 MG/DL (2.5-4.9) Magnesium Level 2.4 MG/DL (1.8-2.4) Total Bilirubin 1.1 MG/DL (0.2-1.0) H Direct Bilirubin 0.6 MG/DL (0.0-0.3) H Aspartate Amino Transf (AST/SGOT) 28 U/L (15-37) Alanine Aminotransferase (ALT/SGPT) 30 U/L (12-78) Alkaline Phosphatase 220 U/L (46-116) H Total Protein 6.6 G/DL (6.4-8.2) Albumin 1.2 G/DL (3.4-5.0) L Globulin 5.4 g/dL Albumin/Globulin Ratio 0.2 (1.0-2.7) L Random Vancomycin Level 24.6 ug/mL Cortisol AM Sample Pending ARTIS SANTIAGO 3, 2018 12:06"
--- NOTE | 2017-06-28 13:12 | Pulmonology Progress Note ---
Assessment/Plan Assessment/Plan 1. Respiratory failure. 2. Sepsis with shock. 3. Dialysis catheter sepsis 4. Stroke with dementia and right hemiparesis. 5. Diabetes. requires multiple pressors still on vent, not tolerating weaning nebs and suction abx per id wound care TF and asp risk disc w RN doing poorly consider comfort care Subjective ROS Limited/Unobtainable: Yes Allergies: Coded Allergies: No Known Allergies (Unverified , 06/18/17) Objective Last 24 Hour Vital Signs Date Time Temp Pulse Resp B/P (MAP) Pulse Ox O2 Delivery O2 Flow Rate FiO2 06/28/17 12:00 30 06/28/17 12:00 94 06/28/17 12:00 98.9 97 31 97/46 100 Mechanical Ventilator 30 06/28/17 11:28 85 26 30 06/28/17 11:28 91 26 Mechanical Ventilator 50 06/28/17 11:00 98 26 129/61 100 Mechanical Ventilator 30 06/28/17 10:30 93 28 104/50 100 Mechanical Ventilator 30 06/28/17 10:00 92 26 96/48 100 Mechanical Ventilator 30 06/28/17 09:30 93 26 102/45 100 Mechanical Ventilator 30 06/28/17 09:00 92 26 103/48 100 Mechanical Ventilator 30 06/28/17 08:52 89 24 30 06/28/17 08:30 94 30 95/48 100 Mechanical Ventilator 30 06/28/17 08:00 30 06/28/17 08:00 98.5 96 28 86/46 100 Mechanical Ventilator 30 06/28/17 08:00 97 06/28/17 07:00 98 30 95/47 100 Mechanical Ventilator 35 06/28/17 06:58 98 25 30 06/28/17 06:00 95 30 107/50 100 Mechanical Ventilator 35 06/28/17 05:00 95 29 108/48 100 Mechanical Ventilator 35 06/28/17 04:35 96 24 30 06/28/17 04:00 98.2 95 29 110/53 100 Mechanical Ventilator 35 06/28/17 04:00 95 06/28/17 04:00 35 06/28/17 03:30 97 95/48 06/28/17 03:00 95 28 107/52 100 Mechanical Ventilator 35 06/28/17 02:55 97 29 30 06/28/17 02:00 96 30 115/54 100 Mechanical Ventilator 35 06/28/17 01:00 96 30 110/55 100 Mechanical Ventilator 35 06/28/17 00:48 93 27 30 06/28/17 00:00 35 06/28/17 00:00 97 06/28/17 00:00 98.9 96 29 95/48 100 Mechanical Ventilator 35 06/27/17 23:00 97 31 102/51 100 Mechanical Ventilator 35 06/27/17 22:54 91 30 35 06/27/17 22:00 97 30 104/52 100 Mechanical Ventilator 35 06/27/17 21:00 96 30 103/49 100 Mechanical Ventilator 35 06/27/17 20:55 98 30 35 06/27/17 20:45 111/67 06/27/17 20:00 97 06/27/17 20:00 98.6 96 28 99/51 100 Mechanical Ventilator 35 06/27/17 20:00 35 06/27/17 19:00 94 28 105/49 100 Mechanical Ventilator 35 06/27/17 18:52 94 23 35 06/27/17 18:00 94 24 92/45 100 Mechanical Ventilator 35 06/27/17 17:08 98 23 35 06/27/17 17:00 97 25 85/42 100 Mechanical Ventilator 35 06/27/17 16:00 40 06/27/17 16:00 95 06/27/17 16:00 98.3 97 26 85/43 100 Mechanical Ventilator 40 06/27/17 15:00 98 24 83/43 100 Mechanical Ventilator 55 06/27/17 14:58 98 25 40 06/27/17 14:00 96 27 82/41 100 Mechanical Ventilator 55 Intake and Output 06/27/17 06/28/17 19:00 07:00 Intake Total 655 ml 793 ml Output Total 0 ml Balance 655 ml 793 ml Intake Free Water 100 ml 240 ml IV Total 55 ml 3 ml Tube Feeding 450 ml 550 ml Other 50 ml Output Urine Total 0 ml # Bowel Movements 2 4 HEENT: atraumatic Respiratory/Chest: lungs clear Cardiovascular: normal rate Laboratory Tests 06/28/17 04:15: White Blood Count 12.8H, Red Blood Count 2.79L, Hemoglobin 7.7L, Hematocrit 24.2L, Mean Corpuscular Volume 87, Mean Corpuscular Hemoglobin 27.6, Mean Corpuscular Hemoglobin Concent 31.8L, Red Cell Distribution Width 16.7H, Platelet Count 237, Mean Platelet Volume 6.6, Neutrophils (%) (Auto) , Lymphocytes (%) (Auto) , Monocytes (%) (Auto) , Eosinophils (%) (Auto) , Basophils (%) (Auto) , Sodium Level 141, Potassium Level 3.7, Chloride Level 106 , Carbon Dioxide Level 21, Anion Gap 14, Blood Urea Nitrogen 68H, Creatinine 5.2H, Estimat Glomerular Filtration Rate , Glucose Level 132H, Calcium Level 8.0L, Phosphorus Level 2.8, Magnesium Level 2.4, Total Bilirubin 1.1H, Direct Bilirubin 0.6H, Aspartate Amino Transf (AST/SGOT) 28, Alanine Aminotransferase ( ALT/SGPT) 30, Alkaline Phosphatase 220H, Total Protein 6.6, Albumin 1.2L, Globulin 5.4, Albumin/Globulin Ratio 0.2L, Random Vancomycin Level 24.6 06/28/17 10:15: Cortisol AM Sample [Pending] Current Medications Medications (Trade) Dose Ordered Sig/Jaime Route PRN Reason Start Time Stop Time Status Last Admin Dose Admin Acetaminophen (Tylenol) 650 mg Q4H PRN RECTAL Prn Headache/Temp > 101 06/18/17 21:00 07/18/17 20:59 06/20/17 12:42 Aspirin (ASA) 81 mg DAILY NG 06/19/17 19:00 07/19/17 18:59 06/28/17 09:19 Cefepime HCl 1 gm/ Dextrose 55 ml @ 110 mls/hr Q24H IVPB 06/28/17 11:00 07/04/17 23:59 06/28/17 11:23 Chlorhexidine Gluconate (Kati-Hex 2%) 1 applic Q24H TOPIC 06/19/17 20:00 07/19/17 19:59 06/27/17 20:50 Dextrose (Dextrose 50%) STAT PRN IV Hypoglycemia 06/19/17 13:00 07/19/17 12:59 06/23/17 05:35 Dopamine HCl/ Dextrose 250 ml @ 0 mls/hr Q24H IV 06/18/17 20:45 07/18/17 20:44 06/18/17 21:34 Epoetin Russ (Procrit (for ESRD on dialysis)) 5,000 units MON-MON-MON SUBQ 06/21/17 21:00 07/21/17 20:59 06/26/17 21:01 Heparin Sodium (Porcine) (Heparin 5000 units/ml) 5,000 units EVERY 12 HOURS SUBQ 06/18/17 21:00 07/18/17 20:59 06/28/17 09:27 Heparin Sodium (Porcine) (Heparin Sod 1000 units/ml 10ml) 2,000 unit ONCE PRN IV FOR HD USE ONLY 06/28/17 10:00 06/29/17 23:59 Insulin Aspart (NovoLOG) EVERY 6 HOURS SUBQ 06/19/17 18:00 07/19/17 17:59 06/28/17 11:38 Lansoprazole (Prevacid) 30 mg DAILY GT 06/19/17 09:00 07/19/17 08:59 06/28/17 09:19 Norepinephrine Bitartrate 4 mg/ Dextrose 250 ml @ 0 mls/hr Q24H IV 06/19/17 14:15 07/19/17 12:29 06/21/17 02:04 Phenylephrine HCl 100 mg/Sodium Chloride 250 ml @ 0 mls/hr Q24H IV 06/19/17 03:00 07/19/17 02:59 06/28/17 03:30 Sodium Chloride 1,000 ml @ 500 mls/hr Q2H PRN IVLG sbp<90 during hd 06/27/17 11:09 07/27/17 11:08 Sodium Chloride 1,000 ml @ 500 mls/hr Q2H PRN IVLG sbp<90 during hd 06/28/17 09:30 06/29/17 09:29 Vancomycin HCl (Vanco rx to dose) 1 ea DAILY PRN MISC Per rx protocol 06/19/17 02:45 07/19/17 02:44 PEG MARTINEZ Jun 28, 2017 13:11
[2017-06-28 16:58] LABS: BASOPHILS % (AUTO) 0.3 % (0.0-2.0); EOSINOPHILS % (AUTO) 1.2 % (0.0-3.0); HEMATOCRIT 28.2 % (42.0-52.0); HEMOGLOBIN 8.6 G/DL (14.2-18.0); LYMPHOCYTES % (AUTO) 14.5 % (20.0-45.0); MEAN CORPUSCULAR VOLUME 87 FL (80-99); MONOCYTES % (AUTO) 8.1 % (1.0-10.0); NEUTROPHILS % (AUTO) 75.9 % (45.0-75.0); PLATELET COUNT 275 K/UL (150-450); RED BLOOD COUNT 3.22 M/UL (4.70-6.10); RED CELL DISTRIBUTION WIDTH 17.4 % (11.6-14.8); WHITE BLOOD COUNT 14.2 K/UL (4.8-10.8)
[2017-06-28] MEDS: Dyna-Hex 2% Top Sol 2oz TOPIC SCH (19:43)
[2017-06-28] MEDS: DOPamine 400mg/250ml 250 ML IV SCH (20:45)
[2017-06-28] MEDS: Epogen (for ESRD on dialysis) SUBQ SCH (20:59)
[2017-06-29] VITALS (34 sets, daily range): BP systolic 76–128; BP diastolic 40–65
[2017-06-29] MEDS: Phenylephrine 100 MG in NS 240 ML IV SCH (02:40)
--- NOTE | 2017-06-29 03:00 | Progress Note ---
DATE: 06/28/2017 CARDIOLOGY PROGRESS NOTE SUBJECTIVE: The patient's condition remains largely unchanged. He continues to require pressors. He is on ventilator support. OBJECTIVE: VITAL SIGNS: Blood pressure 103/48, pulse 101, respiratory rate 30, afebrile. Monitored rhythm, sinus. LUNGS: Coarse breath sounds. Scattered rhonchi. HEART: Regular rhythm and rate. Normal S1, S2. HEENT: Thick secretions from endotracheal tube. ABDOMEN: Soft. EXTREMITIES: With trace edema. LABORATORY DATA: Potassium 3.7. Magnesium 2.4. Albumin 1.2. White count 14.2, hemoglobin 8.6. Cortisol level pending. IMPRESSION: 1. Sepsis with shock. 2. Respiratory failure. 3. Healthcare-acquired pneumonia. 4. Acute myocardial infarction. 5. Severe protein-calorie malnutrition. 6. End-stage renal disease. PLAN: 1. Hemodialysis. 2. Feeding tube for nutrition. 3. Fluid challenge and pressor taper. 4. Consider stress-dose steroids if cortisol level is low, wean per handicrafts teacher. 5. Antimicrobials per infectious disease educational consultant. 6. Discussed with ICU staff. 7. Remains critical and guarded. Gurdeep Harvey M.D. DR: Otoniel JOB#: [id number] CC:
[2017-06-29] MEDS: NovoLOG Insulin Flexpen SUBQ SCH ×3 (05:58→18:25)
[2017-06-29] MEDS: Aspirin Baby 81mg NG SCH (08:11)
--- NOTE | 2017-06-29 08:13 | General Progress Note ---
Assessment/Plan Problem List: (1) Catheter-related bloodstream infection ICD Codes: T80.211A - Bloodstream infection due to central venous catheter, initial encounter SNOMED: 608571715 (2) Renal failure ICD Codes: N19 - Unspecified kidney failure SNOMED: 54241981 (3) Septic shock ICD Codes: A41.9 - Sepsis, unspecified organism; R65.21 - Severe sepsis with septic shock SNOMED: 29231033 (4) Respiratory failure ICD Codes: J96.90 - Respiratory failure, unspecified, unspecified whether with hypoxia or hypercapnia SNOMED: 774605481 (5) Malnutrition of moderate degree ICD Codes: E44.0 - Moderate protein-calorie malnutrition SNOMED: 333453352 (6) End-stage renal disease ICD Codes: N18.6 - End stage renal disease SNOMED: 68276071 (7) Healthcare-associated pneumonia ICD Codes: J18.9 - Pneumonia, unspecified organism SNOMED: 973305151 Status: stable, not improved Assessment/Plan cont iv abx HD as tolerated. wean pressors as able wean vent resp rx feeds dvt/stress ulcer prophyalxis repeat cbc may need transfusion epo/iron critical and guarded dnr Subjective ROS Limited/Unobtainable: No Constitutional: Reports: malaise, weakness HEENT: Reports: no symptoms Cardiovascular: Reports: no symptoms Respiratory: Reports: shortness of breath, sputum Gastrointestinal/Abdominal: Reports: difficulty swallowing Genitourinary: Reports: no symptoms Neurologic/Psychiatric: Reports: pre-existing deficit Endocrine: Reports: no symptoms Hematologic/Lymphatic: Reports: anemia Allergies: Coded Allergies: No Known Allergies (Unverified , 06/18/17) All Systems: reviewed and negative except above Subjective remains intubated. off derrick. multiple positive cultures noted. dialysis catheter removed. remains poorly responsive at baseline decreased h/h noted. no melena or brbpr. on epo. no change Objective Last 24 Hour Vital Signs Date Time Temp Pulse Resp B/P (MAP) Pulse Ox O2 Delivery O2 Flow Rate FiO2 06/29/17 08:00 97.7 90 30 95/51 100 Mechanical Ventilator 30 06/29/17 08:00 30 06/29/17 07:03 89 25 30 06/29/17 07:00 84 30 102/54 100 Mechanical Ventilator 30 06/29/17 06:30 89 30 114/56 100 Mechanical Ventilator 30 06/29/17 06:00 94 31 87/46 100 Mechanical Ventilator 30 06/29/17 05:30 94 28 76/40 100 Mechanical Ventilator 30 06/29/17 05:14 93 22 30 06/29/17 05:00 97 27 128/64 100 Mechanical Ventilator 30 06/29/17 04:30 100 26 78/41 100 Mechanical Ventilator 30 06/29/17 04:00 30 06/29/17 04:00 98.5 98 29 101/65 100 Mechanical Ventilator 30 06/29/17 03:32 100 06/29/17 03:30 94 23 89/53 99 Mechanical Ventilator 30 06/29/17 03:08 96 27 30 06/29/17 03:00 94 28 96/52 100 Mechanical Ventilator 30 06/29/17 02:40 96 104/55 06/29/17 02:30 91 28 104/55 100 Mechanical Ventilator 30 06/29/17 02:00 91 28 100/52 100 Mechanical Ventilator 30 06/29/17 01:30 93 27 95/47 99 Mechanical Ventilator 30 06/29/17 01:02 91 24 30 06/29/17 01:00 92 27 94/48 100 Mechanical Ventilator 30 06/29/17 00:30 97 28 127/52 100 Mechanical Ventilator 30 06/29/17 00:00 30 06/29/17 00:00 98.5 92 29 102/52 100 Mechanical Ventilator 30 06/28/17 23:42 92 06/28/17 23:30 93 30 96/47 100 Mechanical Ventilator 30 06/28/17 23:19 95 23 30 06/28/17 23:00 96 31 94/45 100 Mechanical Ventilator 30 06/28/17 22:30 97 29 88/41 100 Mechanical Ventilator 30 06/28/17 22:00 105 29 92/42 100 Mechanical Ventilator 30 06/28/17 21:30 101 30 103/48 100 Mechanical Ventilator 30 06/28/17 21:15 92 31 30 06/28/17 21:00 101 32 102/50 100 Mechanical Ventilator 30 06/28/17 20:45 99/50 06/28/17 20:30 101 31 105/51 100 Mechanical Ventilator 30 06/28/17 20:00 30 06/28/17 20:00 98.6 102 31 100/50 100 Mechanical Ventilator 30 06/28/17 20:00 102 1/3/18 19:30 101 30 102/50 100 Mechanical Ventilator 30 06/28/17 19:00 102 31 104/54 100 Mechanical Ventilator 30 06/28/17 18:50 102 21 30 06/28/17 18:00 99 20 103/52 100 Mechanical Ventilator 30 06/28/17 17:30 103 25 30 06/28/17 17:00 93 28 101/45 100 Mechanical Ventilator 30 06/28/17 16:00 93 06/28/17 16:00 30 06/28/17 16:00 98.2 93 32 101/46 100 Mechanical Ventilator 30 06/28/17 16:00 30 06/28/17 15:00 92 25 99/45 100 Mechanical Ventilator 30 06/28/17 14:33 94 30 30 06/28/17 14:00 89 25 107/50 100 Mechanical Ventilator 30 06/28/17 13:08 93 28 30 06/28/17 13:00 91 27 101/48 100 Mechanical Ventilator 30 06/28/17 12:00 30 06/28/17 12:00 94 06/28/17 12:00 98.9 97 31 97/46 100 Mechanical Ventilator 30 06/28/17 11:28 85 26 30 06/28/17 11:28 91 26 Mechanical Ventilator 50 06/28/17 11:00 98 26 129/61 100 Mechanical Ventilator 30 06/28/17 10:30 93 28 104/50 100 Mechanical Ventilator 30 06/28/17 10:00 92 26 96/48 100 Mechanical Ventilator 30 06/28/17 09:30 93 26 102/45 100 Mechanical Ventilator 30 06/28/17 09:00 92 26 103/48 100 Mechanical Ventilator 30 06/28/17 08:52 89 24 30 06/28/17 08:30 94 30 95/48 100 Mechanical Ventilator 30 Intake and Output 06/28/17 06/29/17 19:00 07:00 Intake Total 772.1 ml 620.55 ml Output Total 0 ml 0 ml Balance 772.1 ml 620.55 ml Intake Free Water 90 ml IV Total 32.1 ml 20.55 ml Tube Feeding 650 ml 600 ml Output Urine Total 0 ml 0 ml # Bowel Movements 2 2 Laboratory Tests 06/28/17 10:15: Cortisol AM Sample [Pending] 06/28/17 16:15: White Blood Count 14.2H, Red Blood Count 3.22L, Hemoglobin 8.6L, Hematocrit 28.2L, Mean Corpuscular Volume 87, Mean Corpuscular Hemoglobin 26.8L, Mean Corpuscular Hemoglobin Concent 30.6L, Red Cell Distribution Width 17.4H, Platelet Count 275, Mean Platelet Volume 6.5, Neutrophils (%) (Auto) 75.9H, Lymphocytes (%) (Auto) 14.5L, Monocytes (%) (Auto) 8.1, Eosinophils (%) (Auto) 1.2, Basophils (%) (Auto) 0.3 06/29/17 04:50: Random Vancomycin Level 22.0 Height (Feet): 5 Height (Inches): 10.00 Weight (Pounds): 173 Objective General Appearance: WD/WN, lethargic, confused Neck: supple Cardiovascular: regular rhythm Respiratory/Chest: chest wall non-tender, lungs clear, normal breath sounds, no respiratory distress Abdomen: normal bowel sounds, non tender, soft, no organomegaly, no mass Edema: no edema noted Arm (L), no edema noted Arm (R), no edema noted Leg (L), no edema noted Leg (R), no edema noted Pedal (L), no edema noted Pedal (R), no edema noted Generalized Neurologic: unresponsive, aphasia KEENA BRANDT Jun 29, 2017 08:13
[2017-06-29] MEDS: Heparin 5000 units/ml inj SUBQ SCH ×2 (08:15→21:14)
--- NOTE | 2017-06-29 08:29 | Nephrology Progress Note ---
Assessment/Plan Problem List: (1) Healthcare-associated pneumonia (2) Malnutrition of moderate degree (3) End-stage renal disease (4) Respiratory failure (5) Septic shock Plan , meds reviewed for eskd,hypotension, mrsa sepsis, he isunable to sign as critically ill, hd via new cath 06/27 , flow variable observe hd 06/29,remains on pressors, poor prognosis Subjective ROS Limited/Unobtainable: Yes Objective Objective Last 24 Hour Vital Signs Date Time Temp Pulse Resp B/P (MAP) Pulse Ox O2 Delivery O2 Flow Rate FiO2 06/29/17 08:00 97.7 90 30 95/51 100 Mechanical Ventilator 30 06/29/17 08:00 30 06/29/17 07:03 89 25 30 06/29/17 07:00 84 30 102/54 100 Mechanical Ventilator 30 06/29/17 06:30 89 30 114/56 100 Mechanical Ventilator 30 06/29/17 06:00 94 31 87/46 100 Mechanical Ventilator 30 06/29/17 05:30 94 28 76/40 100 Mechanical Ventilator 30 06/29/17 05:14 93 22 30 06/29/17 05:00 97 27 128/64 100 Mechanical Ventilator 30 06/29/17 04:30 100 26 78/41 100 Mechanical Ventilator 30 06/29/17 04:00 30 06/29/17 04:00 98.5 98 29 101/65 100 Mechanical Ventilator 30 06/29/17 03:32 100 06/29/17 03:30 94 23 89/53 99 Mechanical Ventilator 30 06/29/17 03:08 96 27 30 06/29/17 03:00 94 28 96/52 100 Mechanical Ventilator 30 06/29/17 02:40 96 104/55 06/29/17 02:30 91 28 104/55 100 Mechanical Ventilator 30 06/29/17 02:00 91 28 100/52 100 Mechanical Ventilator 30 06/29/17 01:30 93 27 95/47 99 Mechanical Ventilator 30 06/29/17 01:02 91 24 30 06/29/17 01:00 92 27 94/48 100 Mechanical Ventilator 30 06/29/17 00:30 97 28 127/52 100 Mechanical Ventilator 30 06/29/17 00:00 30 06/29/17 00:00 98.5 92 29 102/52 100 Mechanical Ventilator 30 06/28/17 23:42 92 06/28/17 23:30 93 30 96/47 100 Mechanical Ventilator 30 06/28/17 23:19 95 23 30 06/28/17 23:00 96 31 94/45 100 Mechanical Ventilator 30 06/28/17 22:30 97 29 88/41 100 Mechanical Ventilator 30 06/28/17 22:00 105 29 92/42 100 Mechanical Ventilator 30 06/28/17 21:30 101 30 103/48 100 Mechanical Ventilator 30 06/28/17 21:15 92 31 30 06/28/17 21:00 101 32 102/50 100 Mechanical Ventilator 30 06/28/17 20:45 99/50 06/28/17 20:30 101 31 105/51 100 Mechanical Ventilator 30 06/28/17 20:00 30 06/28/17 20:00 98.6 102 31 100/50 100 Mechanical Ventilator 30 06/28/17 20:00 102 06/28/17 19:30 101 30 102/50 100 Mechanical Ventilator 30 06/28/17 19:00 102 31 104/54 100 Mechanical Ventilator 30 06/28/17 18:50 102 21 30 06/28/17 18:00 99 20 103/52 100 Mechanical Ventilator 30 06/28/17 17:30 103 25 30 06/28/17 17:00 93 28 101/45 100 Mechanical Ventilator 30 06/28/17 16:00 93 06/28/17 16:00 30 06/28/17 16:00 98.2 93 32 101/46 100 Mechanical Ventilator 30 06/28/17 16:00 30 06/28/17 15:00 92 25 99/45 100 Mechanical Ventilator 30 06/28/17 14:33 94 30 30 06/28/17 14:00 89 25 107/50 100 Mechanical Ventilator 30 06/28/17 13:08 93 28 30 06/28/17 13:00 91 27 101/48 100 Mechanical Ventilator 30 06/28/17 12:00 30 06/28/17 12:00 94 06/28/17 12:00 98.9 97 31 97/46 100 Mechanical Ventilator 30 06/28/17 11:28 85 26 30 06/28/17 11:28 91 26 Mechanical Ventilator 50 06/28/17 11:00 98 26 129/61 100 Mechanical Ventilator 30 06/28/17 10:30 93 28 104/50 100 Mechanical Ventilator 30 06/28/17 10:00 92 26 96/48 100 Mechanical Ventilator 30 06/28/17 09:30 93 26 102/45 100 Mechanical Ventilator 30 06/28/17 09:00 92 26 103/48 100 Mechanical Ventilator 30 06/28/17 08:52 89 24 30 06/28/17 08:30 94 30 95/48 100 Mechanical Ventilator 30 Intake and Output 06/28/17 06/29/17 19:00 07:00 Intake Total 772.1 ml 620.55 ml Output Total 0 ml 0 ml Balance 772.1 ml 620.55 ml Intake Free Water 90 ml IV Total 32.1 ml 20.55 ml Tube Feeding 650 ml 600 ml Output Urine Total 0 ml 0 ml # Bowel Movements 2 2 Laboratory Tests 06/28/17 10:15: Cortisol AM Sample [Pending] 06/28/17 16:15: White Blood Count 14.2H, Red Blood Count 3.22L, Hemoglobin 8.6L, Hematocrit 28.2L, Mean Corpuscular Volume 87, Mean Corpuscular Hemoglobin 26.8L, Mean Corpuscular Hemoglobin Concent 30.6L, Red Cell Distribution Width 17.4H, Platelet Count 275, Mean Platelet Volume 6.5, Neutrophils (%) (Auto) 75.9H, Lymphocytes (%) (Auto) 14.5L, Monocytes (%) (Auto) 8.1, Eosinophils (%) (Auto) 1.2, Basophils (%) (Auto) 0.3 06/29/17 04:50: Random Vancomycin Level 22.0 Height (Feet): 5 Height (Inches): 10.00 Weight (Pounds): 173 General Appearance: other - intubated EENT: normal ENT inspection Neck: normal alignment Cardiovascular: regular rhythm, tachycardia Respiratory/Chest: rhonchi - bilaterally Abdomen: non tender Extremities: moderate edema Neurologic: unresponsive LEONORA HUI Jun 29, 2017 08:29
[2017-06-29] MEDS: Cefepime HCl 1 GM in D5W 55 ML IVPB SCH (10:31)
--- NOTE | 2017-06-29 12:06 | Infectious Diseases Prog Note ---
"Assessment/Plan Assessment/Plan antibiotics : vancomycin iv, cefepime A 1. MRSA sepsis s/p catheter removal 2. septic shock 3. respiratory failure 4. renal failure 5. MRSA | enterobacter pneumonia 6. leucocytosis P 1. continue vancomycin iv, cefepime 2. will follow up cultures Subjective ROS Limited/Unobtainable: Yes Allergies: Coded Allergies: No Known Allergies (Unverified , 06/18/17) Objective Vital Signs Last 24 Hour Vital Signs Date Time Temp Pulse Resp B/P (MAP) Pulse Ox O2 Delivery O2 Flow Rate FiO2 06/29/17 11:00 88 31 105/55 100 Mechanical Ventilator 30 06/29/17 10:55 89 22 30 06/29/17 10:00 90 31 96/57 100 Mechanical Ventilator 30 06/29/17 09:13 88 21 30 06/29/17 09:00 86 30 100/51 100 Mechanical Ventilator 30 06/29/17 08:00 97.7 90 30 95/51 100 Mechanical Ventilator 30 06/29/17 08:00 88 06/29/17 08:00 30 06/29/17 07:03 89 25 30 06/29/17 07:00 84 30 102/54 100 Mechanical Ventilator 30 06/29/17 06:30 89 30 114/56 100 Mechanical Ventilator 30 06/29/17 06:00 94 31 87/46 100 Mechanical Ventilator 30 06/29/17 05:30 94 28 76/40 100 Mechanical Ventilator 30 06/29/17 05:14 93 22 30 06/29/17 05:00 97 27 128/64 100 Mechanical Ventilator 30 06/29/17 04:30 100 26 78/41 100 Mechanical Ventilator 30 06/29/17 04:00 30 06/29/17 04:00 98.5 98 29 101/65 100 Mechanical Ventilator 30 06/29/17 03:32 100 06/29/17 03:30 94 23 89/53 99 Mechanical Ventilator 30 06/29/17 03:08 96 27 30 06/29/17 03:00 94 28 96/52 100 Mechanical Ventilator 30 06/29/17 02:40 96 104/55 06/29/17 02:30 91 28 104/55 100 Mechanical Ventilator 30 06/29/17 02:00 91 28 100/52 100 Mechanical Ventilator 30 06/29/17 01:30 93 27 95/47 99 Mechanical Ventilator 30 06/29/17 01:02 91 24 30 06/29/17 01:00 92 27 94/48 100 Mechanical Ventilator 30 06/29/17 00:30 97 28 127/52 100 Mechanical Ventilator 30 06/29/17 00:00 30 06/29/17 00:00 98.5 92 29 102/52 100 Mechanical Ventilator 30 06/28/17 23:42 92 06/28/17 23:30 93 30 96/47 100 Mechanical Ventilator 30 06/28/17 23:19 95 23 30 06/28/17 23:00 96 31 94/45 100 Mechanical Ventilator 30 06/28/17 22:30 97 29 88/41 100 Mechanical Ventilator 30 06/28/17 22:00 105 29 92/42 100 Mechanical Ventilator 30 06/28/17 21:30 101 30 103/48 100 Mechanical Ventilator 30 06/28/17 21:15 92 31 30 06/28/17 21:00 101 32 102/50 100 Mechanical Ventilator 30 06/28/17 20:45 99/50 06/28/17 20:30 101 31 105/51 100 Mechanical Ventilator 30 06/28/17 20:00 30 06/28/17 20:00 98.6 102 31 100/50 100 Mechanical Ventilator 30 06/28/17 20:00 102 06/28/17 19:30 101 30 102/50 100 Mechanical Ventilator 30 06/28/17 19:00 102 31 104/54 100 Mechanical Ventilator 30 06/28/17 18:50 102 21 30 06/28/17 18:00 99 20 103/52 100 Mechanical Ventilator 30 06/28/17 17:30 103 25 30 06/28/17 17:00 93 28 101/45 100 Mechanical Ventilator 30 06/28/17 16:00 93 06/28/17 16:00 30 06/28/17 16:00 98.2 93 32 101/46 100 Mechanical Ventilator 30 06/28/17 16:00 30 06/28/17 15:00 92 25 99/45 100 Mechanical Ventilator 30 06/28/17 14:33 94 30 30 06/28/17 14:00 89 25 107/50 100 Mechanical Ventilator 30 06/28/17 13:08 93 28 30 06/28/17 13:00 91 27 101/48 100 Mechanical Ventilator 30 Height (Feet): 5 Height (Inches): 10.00 Weight (Pounds): 173 HEENT: other - intubated Respiratory/Chest: lungs clear Cardiovascular: normal rate, regular rhythm, no gallop/murmur Abdomen: soft, non tender Extremities: no edema, other - left IJ catheter Microbiology Date/Time Source Procedure Growth Status 06/27/17 14:00 Blood Blood Culture - Preliminary NO GROWTH AFTER 24 HOURS Resulted Laboratory Tests Test 06/28/17 16:15 06/29/17 04:50 White Blood Count 14.2 K/UL (4.8-10.8) H Red Blood Count 3.22 M/UL (4.70-6.10) L Hemoglobin 8.6 G/DL (14.2-18.0) L Hematocrit 28.2 % (42.0-52.0) L Mean Corpuscular Volume 87 FL (80-99) Mean Corpuscular Hemoglobin 26.8 PG (27.0-31.0) L Mean Corpuscular Hemoglobin Concent 30.6 G/DL (32.0-36.0) L Red Cell Distribution Width 17.4 % (11.6-14.8) H Platelet Count 275 K/UL (150-450) Mean Platelet Volume 6.5 FL (6.5-10.1) Neutrophils (%) (Auto) 75.9 % (45.0-75.0) H Lymphocytes (%) (Auto) 14.5 % (20.0-45.0) L Monocytes (%) (Auto) 8.1 % (1.0-10.0) Eosinophils (%) (Auto) 1.2 % (0.0-3.0) Basophils (%) (Auto) 0.3 % (0.0-2.0) Random Vancomycin Level 22.0 ug/mL ARTIS SANTIAGO Jun 29, 2017 12:06"
--- NOTE | 2017-06-29 20:39 | Pulmonology Progress Note ---
Assessment/Plan Assessment/Plan 1. Respiratory failure. 2. Sepsis with shock. 3. Dialysis catheter sepsis 4. Stroke with dementia and right hemiparesis. 5. Diabetes. requires multiple pressors on HD still on vent, not tolerating weaning nebs and suction abx per id disc w RN doing poorly prognosis poor consider comfort care Subjective ROS Limited/Unobtainable: Yes Allergies: Coded Allergies: No Known Allergies (Unverified , 06/18/17) Objective Last 24 Hour Vital Signs Date Time Temp Pulse Resp B/P (MAP) Pulse Ox O2 Delivery O2 Flow Rate FiO2 06/29/17 19:13 94 27 30 06/29/17 19:00 91 28 94/51 100 Mechanical Ventilator 30 06/29/17 18:00 91 30 92/56 100 Mechanical Ventilator 30 06/29/17 17:00 92 30 81/42 100 Mechanical Ventilator 30 06/29/17 16:55 92 27 30 06/29/17 16:00 97.1 89 28 94/51 100 Mechanical Ventilator 30 06/29/17 16:00 86 06/29/17 16:00 30 06/29/17 15:39 87 20 30 06/29/17 15:00 89 20 98/52 100 Mechanical Ventilator 30 06/29/17 14:00 88 29 120/52 100 Mechanical Ventilator 30 06/29/17 14:00 Mechanical Ventilator 40 06/29/17 13:00 86 31 106/56 100 Mechanical Ventilator 30 06/29/17 12:50 91 24 30 06/29/17 12:00 86 06/29/17 12:00 30 06/29/17 12:00 97.2 86 31 100/51 100 Mechanical Ventilator 30 06/29/17 11:00 88 31 105/55 100 Mechanical Ventilator 30 06/29/17 10:55 89 22 30 06/29/17 10:00 90 31 96/57 100 Mechanical Ventilator 30 06/29/17 09:13 88 21 30 06/29/17 09:00 86 30 100/51 100 Mechanical Ventilator 30 06/29/17 08:00 97.7 90 30 95/51 100 Mechanical Ventilator 30 06/29/17 08:00 88 06/29/17 08:00 30 06/29/17 07:03 89 25 30 06/29/17 07:00 84 30 102/54 100 Mechanical Ventilator 30 1/4/18 06:30 89 30 114/56 100 Mechanical Ventilator 30 06/29/17 06:00 94 31 87/46 100 Mechanical Ventilator 30 06/29/17 05:30 94 28 76/40 100 Mechanical Ventilator 30 06/29/17 05:14 93 22 30 06/29/17 05:00 97 27 128/64 100 Mechanical Ventilator 30 06/29/17 04:30 100 26 78/41 100 Mechanical Ventilator 30 06/29/17 04:00 30 06/29/17 04:00 98.5 98 29 101/65 100 Mechanical Ventilator 30 06/29/17 03:32 100 06/29/17 03:30 94 23 89/53 99 Mechanical Ventilator 30 06/29/17 03:08 96 27 30 06/29/17 03:00 94 28 96/52 100 Mechanical Ventilator 30 06/29/17 02:40 96 104/55 06/29/17 02:30 91 28 104/55 100 Mechanical Ventilator 30 06/29/17 02:00 91 28 100/52 100 Mechanical Ventilator 30 06/29/17 01:30 93 27 95/47 99 Mechanical Ventilator 30 06/29/17 01:02 91 24 30 06/29/17 01:00 92 27 94/48 100 Mechanical Ventilator 30 06/29/17 00:30 97 28 127/52 100 Mechanical Ventilator 30 06/29/17 00:00 30 06/29/17 00:00 98.5 92 29 102/52 100 Mechanical Ventilator 30 06/28/17 23:42 92 06/28/17 23:30 93 30 96/47 100 Mechanical Ventilator 30 06/28/17 23:19 95 23 30 06/28/17 23:00 96 31 94/45 100 Mechanical Ventilator 30 06/28/17 22:30 97 29 88/41 100 Mechanical Ventilator 30 06/28/17 22:00 105 29 92/42 100 Mechanical Ventilator 30 06/28/17 21:30 101 30 103/48 100 Mechanical Ventilator 30 06/28/17 21:15 92 31 30 06/28/17 21:00 101 32 102/50 100 Mechanical Ventilator 30 06/28/17 20:45 99/50 Intake and Output 06/28/17 06/29/17 19:00 07:00 Intake Total 772.1 ml 622.35 ml Output Total 0 ml 0 ml Balance 772.1 ml 622.35 ml Intake Free Water 90 ml IV Total 32.1 ml 22.35 ml Tube Feeding 650 ml 600 ml Output Urine Total 0 ml 0 ml # Bowel Movements 2 2 General Appearance: no acute distress Respiratory/Chest: rhonchi Cardiovascular: normal rate Microbiology Date/Time Source Procedure Growth Status 06/27/17 14:00 Blood Blood Culture - Preliminary NO GROWTH AFTER 24 HOURS Resulted Laboratory Tests 06/29/17 04:50: Random Vancomycin Level 22.0 Current Medications Medications (Trade) Dose Ordered Sig/Jaime Route PRN Reason Start Time Stop Time Status Last Admin Dose Admin Acetaminophen (Tylenol) 650 mg Q4H PRN RECTAL Prn Headache/Temp > 101 06/18/17 21:00 07/18/17 20:59 06/20/17 12:42 Aspirin (ASA) 81 mg DAILY NG 06/19/17 19:00 07/19/17 18:59 06/29/17 08:11 Cefepime HCl 1 gm/ Dextrose 55 ml @ 110 mls/hr Q24H IVPB 06/28/17 11:00 07/04/17 23:59 06/29/17 10:31 Chlorhexidine Gluconate (Kati-Hex 2%) 1 applic Q24H TOPIC 06/19/17 20:00 07/19/17 19:59 06/28/17 19:43 Dextrose (Dextrose 50%) STAT PRN IV Hypoglycemia 06/19/17 13:00 07/19/17 12:59 06/23/17 05:35 Epoetin Russ (Procrit (for ESRD on dialysis)) 5,000 units MON-MON-MON SUBQ 06/21/17 21:00 07/21/17 20:59 06/28/17 20:59 Heparin Sodium (Porcine) (Heparin 5000 units/ml) 5,000 units EVERY 12 HOURS SUBQ 06/18/17 21:00 07/18/17 20:59 06/29/17 08:15 Heparin Sodium (Porcine) (Heparin Sod 1000 units/ml 10ml) 2,000 unit ONCE PRN IV FOR HD USE ONLY 06/28/17 10:00 06/29/17 23:59 Insulin Aspart (NovoLOG) EVERY 6 HOURS SUBQ 06/19/17 18:00 07/19/17 17:59 06/29/17 18:25 Lansoprazole (Prevacid) 30 mg DAILY GT 06/19/17 09:00 07/19/17 08:59 06/29/17 08:12 Phenylephrine HCl 100 mg/Sodium Chloride 250 ml @ 0 mls/hr Q24H IV 06/19/17 03:00 07/19/17 02:59 06/29/17 02:40 Sodium Chloride 1,000 ml @ 500 mls/hr Q2H PRN IVLG sbp<90 during hd 06/27/17 11:09 07/27/17 11:08 Vancomycin HCl (Vanco rx to dose) 1 ea DAILY PRN MISC Per rx protocol 06/19/17 02:45 07/19/17 02:44 PEG MARTINEZ Jun 29, 2017 20:39
[2017-06-29] MEDS: Dyna-Hex 2% Top Sol 2oz TOPIC SCH (21:16)
[2017-06-30] VITALS (40 sets, daily range): BP systolic 85–124; BP diastolic 40–60
[2017-06-30] MEDS: NovoLOG Insulin Flexpen SUBQ SCH ×5 (00:38→23:33)
--- NOTE | 2017-06-30 01:45 | Progress Note ---
DATE: 06/29/2017 CARDIOLOGY PROGRESS NOTE SUBJECTIVE: The patient remains on pressor support. He continues to remain hypotensive. Hemodialysis without ultrafiltration is regularly scheduled for his end-stage renal disease. He remains on ventilator support. He is not weanable at this time. OBJECTIVE: VITAL SIGNS: Blood pressure 95/51, heart rate 90, respiratory rate 30, and afebrile. HEENT: Orally intubated. LUNGS: Coarse breath sounds with rhonchi. HEART: Regular rhythm and rate. Normal S1, S2. Sinus rhythm on monitor with rare PVC. ABDOMEN: Soft. EXTREMITIES: Trace edema. LABORATORY DATA: Pending today. IMPRESSION: 1. Sepsis with shock. 2. Respiratory failure. 3. End-stage renal disease. 4. Cerebrovascular accident with right hemiparesis and dementia. 5. Type 2 diabetes mellitus. 6. Remains critical and guarded. 7. Severe protein-calorie malnutrition. 8. Acute myocardial infarction. PLAN: 1. Hemodialysis per grinding machine operator automatic. 2. Taper pressors. Discussed with nursing staff. 3. No role for stress-dosed steroids based on today's cortisol level, which is normal. 4. Antimicrobials per Infectious Disease recruiting consultant. 5. Skin care. 6. Stress ulcer prophylaxis. 7. Respiratory hygiene. 8. Weaning efforts when off pressors. Gurdeep Harvey M.D. DR: Britton JOB#: [id number] CC:
[2017-06-30] MEDS: Phenylephrine 100 MG in NS 240 ML IV SCH (03:00)
[2017-06-30 07:17] LABS: HEMATOCRIT 22.2 % (42.0-52.0); HEMOGLOBIN 7.3 G/DL (14.2-18.0); MEAN CORPUSCULAR VOLUME 87 FL (80-99); PLATELET COUNT 298 K/UL (150-450); RED BLOOD COUNT 2.56 M/UL (4.70-6.10); RED CELL DISTRIBUTION WIDTH 17.8 % (11.6-14.8); WHITE BLOOD COUNT 12.4 K/UL (4.8-10.8)
[2017-06-30 07:36] LABS: ALANINE AMINOTRANSFERASE 22 U/L (12-78); ALBUMIN 1.1 G/DL (3.4-5.0); ALBUMIN/GLOBULIN RATIO 0.2 (1.0-2.7); ALKALINE PHOSPHATASE 191 U/L (46-116); ANION GAP 9 mmol/L (5-15); ASPARTATE AMINO TRANSFERASE 23 U/L (15-37); BILIRUBIN,TOTAL 0.6 MG/DL (0.2-1.0); BLOOD UREA NITROGEN 60 mg/dL (7-18); CALCIUM 7.4 MG/DL (8.5-10.1); CARBON DIOXIDE 24 MMOL/L (21-32); CHLORIDE 107 MMOL/L (98-107); CREATININE 4.5 MG/DL (0.55-1.30); POTASSIUM 3.9 MMOL/L (3.5-5.1); SODIUM 140 MMOL/L (136-145)
[2017-06-30] MEDS: Aspirin Baby 81mg NG SCH (08:52)
[2017-06-30] MEDS: Heparin 5000 units/ml inj SUBQ SCH ×2 (08:57→21:28)
--- NOTE | 2017-06-30 10:40 | General Progress Note ---
Assessment/Plan Problem List: (1) Catheter-related bloodstream infection ICD Codes: T80.211A - Bloodstream infection due to central venous catheter, initial encounter SNOMED: 792268723 (2) Renal failure ICD Codes: N19 - Unspecified kidney failure SNOMED: 38174124 (3) Septic shock ICD Codes: A41.9 - Sepsis, unspecified organism; R65.21 - Severe sepsis with septic shock SNOMED: 24902103 (4) Respiratory failure ICD Codes: J96.90 - Respiratory failure, unspecified, unspecified whether with hypoxia or hypercapnia SNOMED: 198376091 (5) Malnutrition of moderate degree ICD Codes: E44.0 - Moderate protein-calorie malnutrition SNOMED: 763454680 (6) End-stage renal disease ICD Codes: N18.6 - End stage renal disease SNOMED: 22562454 (7) Healthcare-associated pneumonia ICD Codes: J18.9 - Pneumonia, unspecified organism SNOMED: 941401948 Status: stable, not improved Assessment/Plan cont iv abx HD as tolerated. wean pressors as able wean vent resp rx feeds dvt/stress ulcer prophyalxis needs emergent transfusion no family to contact epo/iron critical and guarded dnr Subjective ROS Limited/Unobtainable: Yes Constitutional: Reports: malaise, weakness HEENT: Reports: no symptoms Cardiovascular: Reports: no symptoms Respiratory: Reports: sputum Gastrointestinal/Abdominal: Reports: difficulty swallowing Genitourinary: Reports: no symptoms Neurologic/Psychiatric: Reports: pre-existing deficit Endocrine: Reports: no symptoms Hematologic/Lymphatic: Reports: no symptoms Allergies: Coded Allergies: No Known Allergies (Unverified , 06/18/17) All Systems: reviewed and negative except above Subjective remains intubated. on derrick. multiple positive cultures noted. dialysis catheter removed. remains poorly responsive at baseline decreased h/h noted. no melena or brbpr. on epo. no change Objective Last 24 Hour Vital Signs Date Time Temp Pulse Resp B/P (MAP) Pulse Ox O2 Delivery O2 Flow Rate FiO2 06/30/17 09:44 30 06/30/17 09:41 95 23 30 06/30/17 09:19 100 06/30/17 09:18 92 20 30 06/30/17 09:15 30 06/30/17 09:13 95 21 30 06/30/17 08:00 97 06/30/17 08:00 30 06/30/17 07:22 97 23 30 06/30/17 07:00 97 29 100/50 100 Mechanical Ventilator 30 06/30/17 06:30 94 29 101/48 100 Mechanical Ventilator 30 06/30/17 06:00 94 29 92/40 100 Mechanical Ventilator 30 06/30/17 05:30 94 29 92/40 100 Mechanical Ventilator 30 06/30/17 05:00 92 29 94/40 100 Mechanical Ventilator 30 06/30/17 04:46 91 20 30 06/30/17 04:30 97 29 92/40 100 Mechanical Ventilator 30 06/30/17 04:00 30 06/30/17 04:00 97.6 97 29 92/40 100 Mechanical Ventilator 30 06/30/17 04:00 96 06/30/17 03:30 97 29 94/40 100 Mechanical Ventilator 30 06/30/17 03:05 102 26 30 06/30/17 03:00 95 29 99/47 100 Mechanical Ventilator 30 06/30/17 02:30 99 29 85/42 100 Mechanical Ventilator 30 06/30/17 02:00 99 29 85/42 100 Mechanical Ventilator 30 06/30/17 01:30 94 28 95/48 100 Mechanical Ventilator 30 06/30/17 01:10 94 23 30 06/30/17 01:00 94 28 91/48 100 Mechanical Ventilator 30 06/30/17 00:30 94 28 100/60 100 Mechanical Ventilator 30 06/30/17 00:00 98.5 95 28 112/50 100 Mechanical Ventilator 30 06/29/17 23:30 62 28 85/54 100 Mechanical Ventilator 30 06/29/17 23:00 93 28 85/54 100 Mechanical Ventilator 30 06/29/17 22:37 88 23 30 06/29/17 22:00 91 28 94/51 100 Mechanical Ventilator 30 06/29/17 21:30 91 28 98/51 100 Mechanical Ventilator 30 06/29/17 21:00 89 28 94/46 100 Mechanical Ventilator 30 06/29/17 20:54 86 30 30 06/29/17 20:30 91 28 90/45 100 Mechanical Ventilator 30 06/29/17 20:00 91 06/29/17 20:00 91 31 94/51 100 Mechanical Ventilator 30 06/29/17 20:00 30 06/29/17 19:13 94 27 30 06/29/17 19:00 91 28 94/51 100 Mechanical Ventilator 30 06/29/17 18:00 91 30 92/56 100 Mechanical Ventilator 30 06/29/17 17:30 Mechanical Ventilator 40 06/29/17 17:00 92 30 81/42 100 Mechanical Ventilator 30 06/29/17 16:55 92 27 30 06/29/17 16:00 97.1 89 28 94/51 100 Mechanical Ventilator 30 06/29/17 16:00 86 06/29/17 16:00 30 06/29/17 15:39 87 20 30 06/29/17 15:00 89 20 98/52 100 Mechanical Ventilator 30 06/29/17 14:00 88 29 120/52 100 Mechanical Ventilator 30 06/29/17 14:00 Mechanical Ventilator 40 06/29/17 13:00 86 31 106/56 100 Mechanical Ventilator 30 06/29/17 12:50 91 24 30 06/29/17 12:00 86 06/29/17 12:00 30 06/29/17 12:00 97.2 86 31 100/51 100 Mechanical Ventilator 30 06/29/17 11:00 88 31 105/55 100 Mechanical Ventilator 30 06/29/17 10:55 89 22 30 Intake and Output 06/29/17 06/30/17 19:00 07:00 Intake Total 616.50 ml 671.60 ml Output Total 0 ml 0 ml Balance 616.50 ml 671.60 ml Intake Free Water 50 ml IV Total 16.50 ml 21.60 ml Tube Feeding 600 ml 600 ml Output Urine Total 0 ml 0 ml # Bowel Movements 4 3 Laboratory Tests 06/30/17 05:50: White Blood Count 12.4H, Red Blood Count 2.56L, Hemoglobin 7.3L, Hematocrit 22.2L, Mean Corpuscular Volume 87, Mean Corpuscular Hemoglobin 28.5, Mean Corpuscular Hemoglobin Concent 32.8, Red Cell Distribution Width 17.8H, Platelet Count 298, Mean Platelet Volume 7.1, Neutrophils (%) (Auto) , Lymphocytes (%) (Auto) , Monocytes (%) (Auto) , Eosinophils (%) (Auto) , Basophils (%) (Auto) , Differential Total Cells Counted 100, Neutrophils % ( Manual) 76H, Lymphocytes % (Manual) 15L, Monocytes % (Manual) 8, Eosinophils % ( Manual) 1, Basophils % (Manual) 0, Band Neutrophils 0, Platelet Estimate Adequate, Platelet Morphology Normal, Hypochromasia 1+, Anisocytosis 1+, Sodium Level 140, Potassium Level 3.9, Chloride Level 107, Carbon Dioxide Level 24, Anion Gap 9, Blood Urea Nitrogen 60H, Creatinine 4.5H, Estimat Glomerular Filtration Rate , Glucose Level 175H, Calcium Level 7.4L, Magnesium Level 2.1, Total Bilirubin 0.6, Aspartate Amino Transf (AST/SGOT) 23, Alanine Aminotransferase (ALT/SGPT) 22, Alkaline Phosphatase 191H, Pro-B-Type Natriuretic Peptide 8415H, Total Protein 6.3L, Albumin 1.1L, Globulin 5.2, Albumin/Globulin Ratio 0.2L Height (Feet): 5 Height (Inches): 10.00 Weight (Pounds): 175 Objective General Appearance: WD/WN, lethargic, confused Neck: supple Cardiovascular: regular rhythm Respiratory/Chest: chest wall non-tender, lungs clear, normal breath sounds, no respiratory distress Abdomen: normal bowel sounds, non tender, soft, no organomegaly, no mass Edema: no edema noted Arm (L), no edema noted Arm (R), no edema noted Leg (L), no edema noted Leg (R), no edema noted Pedal (L), no edema noted Pedal (R), no edema noted Generalized Neurologic: unresponsive, aphasia KEENA BRANDT Jun 30, 2017 10:40
[2017-06-30] MEDS: Cefepime HCl 1 GM in D5W 55 ML IVPB SCH (11:12)
--- NOTE | 2017-06-30 13:34 | Infectious Diseases Prog Note ---
"Assessment/Plan Assessment/Plan antibiotics : vancomycin iv, cefepime A 1. MRSA sepsis s/p catheter removal 2. septic shock 3. respiratory failure 4. renal failure 5. MRSA | enterobacter pneumonia 6. leucocytosis P 1. continue vancomycin iv, cefepime 2. will follow up cultures Subjective ROS Limited/Unobtainable: Yes Allergies: Coded Allergies: No Known Allergies (Unverified , 06/18/17) Objective Vital Signs Last 24 Hour Vital Signs Date Time Temp Pulse Resp B/P (MAP) Pulse Ox O2 Delivery O2 Flow Rate FiO2 06/30/17 13:04 96 26 30 06/30/17 12:00 99.0 89 35 99/46 100 Mechanical Ventilator 30 06/30/17 12:00 30 06/30/17 12:00 98 06/30/17 11:30 98 35 99/54 99 Mechanical Ventilator 30 06/30/17 11:00 96 34 101/51 100 Mechanical Ventilator 30 06/30/17 10:53 92 22 30 06/30/17 10:30 93 35 102/50 98 Mechanical Ventilator 30 06/30/17 10:00 94 35 101/48 98 Mechanical Ventilator 30 06/30/17 09:44 30 06/30/17 09:41 95 23 30 06/30/17 09:30 95 31 111/53 100 Mechanical Ventilator 30 06/30/17 09:19 100 06/30/17 09:18 92 20 30 06/30/17 09:15 30 06/30/17 09:13 95 21 30 06/30/17 09:00 96 30 107/54 100 Mechanical Ventilator 30 06/30/17 08:30 95 35 94/42 100 Mechanical Ventilator 30 06/30/17 08:15 97 34 89/41 100 Mechanical Ventilator 30 06/30/17 08:00 97 06/30/17 08:00 30 06/30/17 08:00 98.3 99 32 92/45 100 Mechanical Ventilator 30 06/30/17 07:45 94 34 99/44 100 Mechanical Ventilator 30 06/30/17 07:30 98 31 108/50 100 Mechanical Ventilator 30 06/30/17 07:22 97 23 30 06/30/17 07:00 97 29 100/50 100 Mechanical Ventilator 30 06/30/17 06:30 94 29 101/48 100 Mechanical Ventilator 30 06/30/17 06:00 94 29 92/40 100 Mechanical Ventilator 30 06/30/17 05:30 94 29 92/40 100 Mechanical Ventilator 30 06/30/17 05:00 92 29 94/40 100 Mechanical Ventilator 30 06/30/17 04:46 91 20 30 06/30/17 04:30 97 29 92/40 100 Mechanical Ventilator 30 06/30/17 04:00 30 06/30/17 04:00 97.6 97 29 92/40 100 Mechanical Ventilator 30 06/30/17 04:00 96 06/30/17 03:30 97 29 94/40 100 Mechanical Ventilator 30 06/30/17 03:05 102 26 30 06/30/17 03:00 95 29 99/47 100 Mechanical Ventilator 30 06/30/17 02:30 99 29 85/42 100 Mechanical Ventilator 30 06/30/17 02:00 99 29 85/42 100 Mechanical Ventilator 30 06/30/17 01:30 94 28 95/48 100 Mechanical Ventilator 30 06/30/17 01:10 94 23 30 06/30/17 01:00 94 28 91/48 100 Mechanical Ventilator 30 06/30/17 00:30 94 28 100/60 100 Mechanical Ventilator 30 06/30/17 00:00 98.5 95 28 112/50 100 Mechanical Ventilator 30 06/29/17 23:30 62 28 85/54 100 Mechanical Ventilator 30 06/29/17 23:00 93 28 85/54 100 Mechanical Ventilator 30 06/29/17 22:37 88 23 30 06/29/17 22:00 91 28 94/51 100 Mechanical Ventilator 30 06/29/17 21:30 91 28 98/51 100 Mechanical Ventilator 30 06/29/17 21:00 89 28 94/46 100 Mechanical Ventilator 30 06/29/17 20:54 86 30 30 06/29/17 20:30 91 28 90/45 100 Mechanical Ventilator 30 06/29/17 20:00 91 06/29/17 20:00 91 31 94/51 100 Mechanical Ventilator 30 06/29/17 20:00 30 06/29/17 19:13 94 27 30 06/29/17 19:00 91 28 94/51 100 Mechanical Ventilator 30 06/29/17 18:00 91 30 92/56 100 Mechanical Ventilator 30 06/29/17 17:30 Mechanical Ventilator 40 06/29/17 17:00 92 30 81/42 100 Mechanical Ventilator 30 06/29/17 16:55 92 27 30 06/29/17 16:00 97.1 89 28 94/51 100 Mechanical Ventilator 30 06/29/17 16:00 86 06/29/17 16:00 30 06/29/17 15:39 87 20 30 06/29/17 15:00 89 20 98/52 100 Mechanical Ventilator 30 06/29/17 14:00 88 29 120/52 100 Mechanical Ventilator 30 06/29/17 14:00 Mechanical Ventilator 40 Height (Feet): 5 Height (Inches): 10.00 Weight (Pounds): 175 HEENT: other - intubated Respiratory/Chest: lungs clear Cardiovascular: normal rate, regular rhythm, no gallop/murmur Abdomen: soft, non tender Extremities: no edema Microbiology Date/Time Source Procedure Growth Status 06/27/17 14:00 Blood Blood Culture - Preliminary NO GROWTH AFTER 48 HOURS Resulted Laboratory Tests Test 06/30/17 05:50 White Blood Count 12.4 K/UL (4.8-10.8) H Red Blood Count 2.56 M/UL (4.70-6.10) L Hemoglobin 7.3 G/DL (14.2-18.0) L Hematocrit 22.2 % (42.0-52.0) L Mean Corpuscular Volume 87 FL (80-99) Mean Corpuscular Hemoglobin 28.5 PG (27.0-31.0) Mean Corpuscular Hemoglobin Concent 32.8 G/DL (32.0-36.0) Red Cell Distribution Width 17.8 % (11.6-14.8) H Platelet Count 298 K/UL (150-450) Mean Platelet Volume 7.1 FL (6.5-10.1) Neutrophils (%) (Auto) % (45.0-75.0) Lymphocytes (%) (Auto) % (20.0-45.0) Monocytes (%) (Auto) % (1.0-10.0) Eosinophils (%) (Auto) % (0.0-3.0) Basophils (%) (Auto) % (0.0-2.0) Differential Total Cells Counted 100 Neutrophils % (Manual) 76 % (45-75) H Lymphocytes % (Manual) 15 % (20-45) L Monocytes % (Manual) 8 % (1-10) Eosinophils % (Manual) 1 % (0-3) Basophils % (Manual) 0 % (0-2) Band Neutrophils 0 % (0-8) Platelet Estimate Adequate Platelet Morphology Normal Hypochromasia 1+ Anisocytosis 1+ Sodium Level 140 MMOL/L (136-145) Potassium Level 3.9 MMOL/L (3.5-5.1) Chloride Level 107 MMOL/L (98-107) Carbon Dioxide Level 24 MMOL/L (21-32) Anion Gap 9 mmol/L (5-15) Blood Urea Nitrogen 60 mg/dL (7-18) H Creatinine 4.5 MG/DL (0.55-1.30) H Estimat Glomerular Filtration Rate mL/min (>60) Glucose Level 175 MG/DL (74-106) H Calcium Level 7.4 MG/DL (8.5-10.1) L Magnesium Level 2.1 MG/DL (1.8-2.4) Total Bilirubin 0.6 MG/DL (0.2-1.0) Aspartate Amino Transf (AST/SGOT) 23 U/L (15-37) Alanine Aminotransferase (ALT/SGPT) 22 U/L (12-78) Alkaline Phosphatase 191 U/L (46-116) H Pro-B-Type Natriuretic Peptide 8415 pg/mL (0-125) H Total Protein 6.3 G/DL (6.4-8.2) L Albumin 1.1 G/DL (3.4-5.0) L Globulin 5.2 g/dL Albumin/Globulin Ratio 0.2 (1.0-2.7) L ARTIS SANTIAGO Jun 30, 2017 13:34"
--- NOTE | 2017-06-30 14:29 | Pulmonology Progress Note ---
Assessment/Plan Assessment/Plan 1. Respiratory failure. 2. Sepsis with shock. 3. Dialysis catheter sepsis 4. Stroke with dementia and right hemiparesis. 5. Diabetes. requires multiple pressors on HD still on vent, not tolerating weaning nebs and suction abx per id disc w RN doing poorly prognosis poor consider comfort care Subjective Interval Events: patient seen in ICU. Discussed with nurse at [facility] Constitutional: Reports: no symptoms HEENT: Repors: no symptoms Respiratory: Reports: no symptoms Cardiovascular: Reports: no symptoms Allergies: Coded Allergies: No Known Allergies (Unverified , 06/18/17) Objective Last 24 Hour Vital Signs Date Time Temp Pulse Resp B/P (MAP) Pulse Ox O2 Delivery O2 Flow Rate FiO2 06/30/17 13:04 96 26 30 06/30/17 12:00 99.0 89 35 99/46 100 Mechanical Ventilator 30 06/30/17 12:00 30 06/30/17 12:00 98 06/30/17 11:30 98 35 99/54 99 Mechanical Ventilator 30 06/30/17 11:00 96 34 101/51 100 Mechanical Ventilator 30 06/30/17 10:53 92 22 30 06/30/17 10:30 93 35 102/50 98 Mechanical Ventilator 30 06/30/17 10:00 94 35 101/48 98 Mechanical Ventilator 30 06/30/17 09:44 30 06/30/17 09:41 95 23 30 06/30/17 09:30 95 31 111/53 100 Mechanical Ventilator 30 06/30/17 09:19 100 06/30/17 09:18 92 20 30 06/30/17 09:15 30 06/30/17 09:13 95 21 30 06/30/17 09:00 96 30 107/54 100 Mechanical Ventilator 30 06/30/17 08:30 95 35 94/42 100 Mechanical Ventilator 30 06/30/17 08:15 97 34 89/41 100 Mechanical Ventilator 30 06/30/17 08:00 97 06/30/17 08:00 30 06/30/17 08:00 98.3 99 32 92/45 100 Mechanical Ventilator 30 06/30/17 07:45 94 34 99/44 100 Mechanical Ventilator 30 06/30/17 07:30 98 31 108/50 100 Mechanical Ventilator 30 06/30/17 07:22 97 23 30 06/30/17 07:00 97 29 100/50 100 Mechanical Ventilator 30 06/30/17 06:30 94 29 101/48 100 Mechanical Ventilator 30 06/30/17 06:00 94 29 92/40 100 Mechanical Ventilator 30 06/30/17 05:30 94 29 92/40 100 Mechanical Ventilator 30 06/30/17 05:00 92 29 94/40 100 Mechanical Ventilator 30 06/30/17 04:46 91 20 30 06/30/17 04:30 97 29 92/40 100 Mechanical Ventilator 30 06/30/17 04:00 30 06/30/17 04:00 97.6 97 29 92/40 100 Mechanical Ventilator 30 06/30/17 04:00 96 06/30/17 03:30 97 29 94/40 100 Mechanical Ventilator 30 06/30/17 03:05 102 26 30 06/30/17 03:00 95 29 99/47 100 Mechanical Ventilator 30 06/30/17 02:30 99 29 85/42 100 Mechanical Ventilator 30 06/30/17 02:00 99 29 85/42 100 Mechanical Ventilator 30 06/30/17 01:30 94 28 95/48 100 Mechanical Ventilator 30 06/30/17 01:10 94 23 30 06/30/17 01:00 94 28 91/48 100 Mechanical Ventilator 30 06/30/17 00:30 94 28 100/60 100 Mechanical Ventilator 30 06/30/17 00:00 98.5 95 28 112/50 100 Mechanical Ventilator 30 06/29/17 23:30 62 28 85/54 100 Mechanical Ventilator 30 06/29/17 23:00 93 28 85/54 100 Mechanical Ventilator 30 06/29/17 22:37 88 23 30 06/29/17 22:00 91 28 94/51 100 Mechanical Ventilator 30 06/29/17 21:30 91 28 98/51 100 Mechanical Ventilator 30 06/29/17 21:00 89 28 94/46 100 Mechanical Ventilator 30 06/29/17 20:54 86 30 30 06/29/17 20:30 91 28 90/45 100 Mechanical Ventilator 30 06/29/17 20:00 91 06/29/17 20:00 91 31 94/51 100 Mechanical Ventilator 30 06/29/17 20:00 30 06/29/17 19:13 94 27 30 06/29/17 19:00 91 28 94/51 100 Mechanical Ventilator 30 06/29/17 18:00 91 30 92/56 100 Mechanical Ventilator 30 06/29/17 17:30 Mechanical Ventilator 40 06/29/17 17:00 92 30 81/42 100 Mechanical Ventilator 30 06/29/17 16:55 92 27 30 06/29/17 16:00 97.1 89 28 94/51 100 Mechanical Ventilator 30 06/29/17 16:00 86 06/29/17 16:00 30 06/29/17 15:39 87 20 30 06/29/17 15:00 89 20 98/52 100 Mechanical Ventilator 30 Intake and Output 06/29/17 06/30/17 19:00 07:00 Intake Total 616.50 ml 671.60 ml Output Total 0 ml 0 ml Balance 616.50 ml 671.60 ml Intake Free Water 50 ml IV Total 16.50 ml 21.60 ml Tube Feeding 600 ml 600 ml Output Urine Total 0 ml 0 ml # Bowel Movements 4 3 General Appearance: no acute distress HEENT: normocephalic Respiratory/Chest: chest wall non-tender, lungs clear Cardiovascular: normal peripheral pulses, normal rate Laboratory Tests 06/30/17 05:50: White Blood Count 12.4H, Red Blood Count 2.56L, Hemoglobin 7.3L, Hematocrit 22.2L, Mean Corpuscular Volume 87, Mean Corpuscular Hemoglobin 28.5, Mean Corpuscular Hemoglobin Concent 32.8, Red Cell Distribution Width 17.8H, Platelet Count 298, Mean Platelet Volume 7.1, Neutrophils (%) (Auto) , Lymphocytes (%) (Auto) , Monocytes (%) (Auto) , Eosinophils (%) (Auto) , Basophils (%) (Auto) , Differential Total Cells Counted 100, Neutrophils % ( Manual) 76H, Lymphocytes % (Manual) 15L, Monocytes % (Manual) 8, Eosinophils % ( Manual) 1, Basophils % (Manual) 0, Band Neutrophils 0, Platelet Estimate Adequate, Platelet Morphology Normal, Hypochromasia 1+, Anisocytosis 1+, Sodium Level 140, Potassium Level 3.9, Chloride Level 107, Carbon Dioxide Level 24, Anion Gap 9, Blood Urea Nitrogen 60H, Creatinine 4.5H, Estimat Glomerular Filtration Rate , Glucose Level 175H, Calcium Level 7.4L, Magnesium Level 2.1, Total Bilirubin 0.6, Aspartate Amino Transf (AST/SGOT) 23, Alanine Aminotransferase (ALT/SGPT) 22, Alkaline Phosphatase 191H, Pro-B-Type Natriuretic Peptide 8415H, Total Protein 6.3L, Albumin 1.1L, Globulin 5.2, Albumin/Globulin Ratio 0.2L Current Medications Medications (Trade) Dose Ordered Sig/Jaime Route PRN Reason Start Time Stop Time Status Last Admin Dose Admin Acetaminophen (Tylenol) 650 mg Q4H PRN RECTAL Prn Headache/Temp > 101 06/18/17 21:00 07/18/17 20:59 06/20/17 12:42 Aspirin (ASA) 81 mg DAILY NG 06/19/17 19:00 07/19/17 18:59 06/30/17 08:52 Cefepime HCl 1 gm/ Dextrose 55 ml @ 110 mls/hr Q24H IVPB 06/28/17 11:00 07/04/17 23:59 06/30/17 11:12 Chlorhexidine Gluconate (Kati-Hex 2%) 1 applic Q24H TOPIC 06/19/17 20:00 07/19/17 19:59 06/29/17 21:16 Dextrose (Dextrose 50%) STAT PRN IV Hypoglycemia 06/19/17 13:00 07/19/17 12:59 06/23/17 05:35 Epoetin Russ (Procrit (for ESRD on dialysis)) 5,000 units MON-MON-MON SUBQ 06/21/17 21:00 07/21/17 20:59 06/28/17 20:59 Heparin Sodium (Porcine) (Heparin 5000 units/ml) 5,000 units EVERY 12 HOURS SUBQ 06/18/17 21:00 07/18/17 20:59 06/30/17 08:57 Insulin Aspart (NovoLOG) EVERY 6 HOURS SUBQ 06/19/17 18:00 07/19/17 17:59 06/30/17 11:48 Lansoprazole (Prevacid) 30 mg DAILY GT 06/19/17 09:00 07/19/17 08:59 06/30/17 08:52 Phenylephrine HCl 100 mg/Sodium Chloride 250 ml @ 0 mls/hr Q24H IV 06/19/17 03:00 07/19/17 02:59 06/29/17 02:40 Sodium Chloride 1,000 ml @ 500 mls/hr Q2H PRN IVLG sbp<90 during hd 06/27/17 11:09 07/27/17 11:08 Vancomycin HCl (Vanco rx to dose) 1 ea DAILY PRN MISC Per rx protocol 06/19/17 02:45 07/19/17 02:44 Steven Olmos MD Jun 30, 2017 14:29
--- NOTE | 2017-06-30 16:16 | Nephrology Progress Note ---
Assessment/Plan Problem List: (1) Healthcare-associated pneumonia (2) Malnutrition of moderate degree (3) End-stage renal disease (4) Respiratory failure (5) Septic shock Plan , meds reviewed for eskd,hypotension, mrsa sepsis, he isunable to sign as critically ill, hd via new cath 06/27 , flow variable observe hd 06/29,remains on pressors--off 1/5 am, hd 07/01 poor prognosis Subjective ROS Limited/Unobtainable: Yes Objective Objective Last 24 Hour Vital Signs Date Time Temp Pulse Resp B/P (MAP) Pulse Ox O2 Delivery O2 Flow Rate FiO2 06/30/17 16:00 30 06/30/17 16:00 91 06/30/17 15:21 91 25 30 06/30/17 13:04 96 26 30 06/30/17 12:00 99.0 89 35 99/46 100 Mechanical Ventilator 30 06/30/17 12:00 30 06/30/17 12:00 98 06/30/17 11:30 98 35 99/54 99 Mechanical Ventilator 30 06/30/17 11:00 96 34 101/51 100 Mechanical Ventilator 30 06/30/17 10:53 92 22 30 06/30/17 10:30 93 35 102/50 98 Mechanical Ventilator 30 06/30/17 10:00 94 35 101/48 98 Mechanical Ventilator 30 06/30/17 09:44 30 06/30/17 09:41 95 23 30 06/30/17 09:30 95 31 111/53 100 Mechanical Ventilator 30 06/30/17 09:19 100 06/30/17 09:18 92 20 30 06/30/17 09:15 30 06/30/17 09:13 95 21 30 06/30/17 09:00 96 30 107/54 100 Mechanical Ventilator 30 06/30/17 08:30 95 35 94/42 100 Mechanical Ventilator 30 06/30/17 08:15 97 34 89/41 100 Mechanical Ventilator 30 06/30/17 08:00 97 06/30/17 08:00 30 06/30/17 08:00 98.3 99 32 92/45 100 Mechanical Ventilator 30 06/30/17 07:45 94 34 99/44 100 Mechanical Ventilator 30 06/30/17 07:30 98 31 108/50 100 Mechanical Ventilator 30 06/30/17 07:22 97 23 30 06/30/17 07:00 97 29 100/50 100 Mechanical Ventilator 30 06/30/17 06:30 94 29 101/48 100 Mechanical Ventilator 30 06/30/17 06:00 94 29 92/40 100 Mechanical Ventilator 30 06/30/17 05:30 94 29 92/40 100 Mechanical Ventilator 30 06/30/17 05:00 92 29 94/40 100 Mechanical Ventilator 30 06/30/17 04:46 91 20 30 06/30/17 04:30 97 29 92/40 100 Mechanical Ventilator 30 06/30/17 04:00 30 06/30/17 04:00 97.6 97 29 92/40 100 Mechanical Ventilator 30 06/30/17 04:00 96 06/30/17 03:30 97 29 94/40 100 Mechanical Ventilator 30 06/30/17 03:05 102 26 30 06/30/17 03:00 95 29 99/47 100 Mechanical Ventilator 30 06/30/17 02:30 99 29 85/42 100 Mechanical Ventilator 30 06/30/17 02:00 99 29 85/42 100 Mechanical Ventilator 30 06/30/17 01:30 94 28 95/48 100 Mechanical Ventilator 30 06/30/17 01:10 94 23 30 06/30/17 01:00 94 28 91/48 100 Mechanical Ventilator 30 06/30/17 00:30 94 28 100/60 100 Mechanical Ventilator 30 06/30/17 00:00 98.5 95 28 112/50 100 Mechanical Ventilator 30 06/29/17 23:30 62 28 85/54 100 Mechanical Ventilator 30 06/29/17 23:00 93 28 85/54 100 Mechanical Ventilator 30 06/29/17 22:37 88 23 30 06/29/17 22:00 91 28 94/51 100 Mechanical Ventilator 30 06/29/17 21:30 91 28 98/51 100 Mechanical Ventilator 30 06/29/17 21:00 89 28 94/46 100 Mechanical Ventilator 30 06/29/17 20:54 86 30 30 06/29/17 20:30 91 28 90/45 100 Mechanical Ventilator 30 06/29/17 20:00 91 06/29/17 20:00 91 31 94/51 100 Mechanical Ventilator 30 06/29/17 20:00 30 06/29/17 19:13 94 27 30 06/29/17 19:00 91 28 94/51 100 Mechanical Ventilator 30 06/29/17 18:00 91 30 92/56 100 Mechanical Ventilator 30 06/29/17 17:30 Mechanical Ventilator 40 06/29/17 17:00 92 30 81/42 100 Mechanical Ventilator 30 06/29/17 16:55 92 27 30 Intake and Output 06/29/17 06/30/17 19:00 07:00 Intake Total 616.50 ml 671.60 ml Output Total 0 ml 0 ml Balance 616.50 ml 671.60 ml Intake Free Water 50 ml IV Total 16.50 ml 21.60 ml Tube Feeding 600 ml 600 ml Output Urine Total 0 ml 0 ml # Bowel Movements 4 3 Laboratory Tests 06/30/17 05:50: White Blood Count 12.4H, Red Blood Count 2.56L, Hemoglobin 7.3L, Hematocrit 22.2L, Mean Corpuscular Volume 87, Mean Corpuscular Hemoglobin 28.5, Mean Corpuscular Hemoglobin Concent 32.8, Red Cell Distribution Width 17.8H, Platelet Count 298, Mean Platelet Volume 7.1, Neutrophils (%) (Auto) , Lymphocytes (%) (Auto) , Monocytes (%) (Auto) , Eosinophils (%) (Auto) , Basophils (%) (Auto) , Differential Total Cells Counted 100, Neutrophils % ( Manual) 76H, Lymphocytes % (Manual) 15L, Monocytes % (Manual) 8, Eosinophils % ( Manual) 1, Basophils % (Manual) 0, Band Neutrophils 0, Platelet Estimate Adequate, Platelet Morphology Normal, Hypochromasia 1+, Anisocytosis 1+, Sodium Level 140, Potassium Level 3.9, Chloride Level 107, Carbon Dioxide Level 24, Anion Gap 9, Blood Urea Nitrogen 60H, Creatinine 4.5H, Estimat Glomerular Filtration Rate , Glucose Level 175H, Calcium Level 7.4L, Magnesium Level 2.1, Total Bilirubin 0.6, Aspartate Amino Transf (AST/SGOT) 23, Alanine Aminotransferase (ALT/SGPT) 22, Alkaline Phosphatase 191H, Pro-B-Type Natriuretic Peptide 8415H, Total Protein 6.3L, Albumin 1.1L, Globulin 5.2, Albumin/Globulin Ratio 0.2L Height (Feet): 5 Height (Inches): 10.00 Weight (Pounds): 175 General Appearance: lethargic EENT: normal ENT inspection Neck: normal alignment Cardiovascular: regular rhythm Respiratory/Chest: rhonchi - bilaterally Abdomen: non tender Extremities: trace edema Neurologic: unresponsive LEONORA HUI Jun 30, 2017 16:16
[2017-06-30] MEDS: Dyna-Hex 2% Top Sol 2oz TOPIC SCH (20:20)
[2017-06-30] MEDS: Epogen (for ESRD on dialysis) SUBQ SCH (21:38)
[2017-07-01] VITALS (24 sets, daily range): BP systolic 85–121; BP diastolic 42–62
[2017-07-01] MEDS: Phenylephrine 100 MG in NS 240 ML IV SCH (03:00)
[2017-07-01] MEDS: NovoLOG Insulin Flexpen SUBQ SCH ×4 (05:28→23:40)
[2017-07-01] MEDS ORDERED: Heparin Sod 1000 units/ml 10ml IV SCH (06:00)
[2017-07-01] MEDS: Aspirin Baby 81mg NG SCH (08:37)
[2017-07-01] MEDS: Heparin 5000 units/ml inj SUBQ SCH ×2 (08:39→21:06)
[2017-07-01] MEDS: Cefepime HCl 1 GM in D5W 55 ML IVPB SCH (10:41)
[2017-07-01] MEDS ORDERED: Vancomycin 1gm/D5W 275ml IVPB ONE ×2 (12:00)
--- NOTE | 2017-07-01 13:50 | General Progress Note ---
Assessment/Plan Problem List: (1) Catheter-related bloodstream infection ICD Codes: T80.211A - Bloodstream infection due to central venous catheter, initial encounter SNOMED: 007407089 (2) Renal failure ICD Codes: N19 - Unspecified kidney failure SNOMED: 66007628 (3) Septic shock ICD Codes: A41.9 - Sepsis, unspecified organism; R65.21 - Severe sepsis with septic shock SNOMED: 79423740 (4) Respiratory failure ICD Codes: J96.90 - Respiratory failure, unspecified, unspecified whether with hypoxia or hypercapnia SNOMED: 739671976 (5) Malnutrition of moderate degree ICD Codes: E44.0 - Moderate protein-calorie malnutrition SNOMED: 024002864 (6) End-stage renal disease ICD Codes: N18.6 - End stage renal disease SNOMED: 28560442 (7) Healthcare-associated pneumonia ICD Codes: J18.9 - Pneumonia, unspecified organism SNOMED: 268895364 Status: stable, not improved Assessment/Plan cont iv abx HD as tolerated. wean pressors as able wean vent resp rx feeds dvt/stress ulcer prophyalxi monitor h/h transfuse as needed epo/iron critical and guarded dnr Subjective ROS Limited/Unobtainable: Yes Constitutional: Reports: malaise, weakness HEENT: Reports: no symptoms Cardiovascular: Reports: no symptoms Respiratory: Reports: cough, shortness of breath Gastrointestinal/Abdominal: Reports: difficulty swallowing Genitourinary: Reports: no symptoms Neurologic/Psychiatric: Reports: pre-existing deficit Endocrine: Reports: no symptoms Hematologic/Lymphatic: Reports: anemia Allergies: Coded Allergies: No Known Allergies (Unverified , 06/18/17) All Systems: reviewed and negative except above Subjective remains intubated. on derrick. multiple positive cultures noted. dialysis catheter removed. remains poorly responsive at baseline decreased h/h noted. no melena or brbpr. on epo. s/p 1 unit prbc. Objective Last 24 Hour Vital Signs Date Time Temp Pulse Resp B/P (MAP) Pulse Ox O2 Delivery O2 Flow Rate FiO2 07/01/17 13:00 93 20 95/56 100 Mechanical Ventilator 30 07/01/17 12:50 93 21 30 07/01/17 12:10 Mechanical Ventilator 30 07/01/17 12:00 30 07/01/17 12:00 93 07/01/17 12:00 97.8 92 20 89/43 100 Mechanical Ventilator 30 07/01/17 11:07 90 23 30 07/01/17 11:00 89 19 108/52 100 Mechanical Ventilator 30 07/01/17 10:00 89 23 116/56 100 Mechanical Ventilator 30 07/01/17 09:00 88 19 101/52 98 Mechanical Ventilator 30 07/01/17 08:45 88 27 30 07/01/17 08:00 97.7 88 23 107/58 100 Mechanical Ventilator 30 07/01/17 08:00 30 07/01/17 08:00 91 07/01/17 07:00 89 22 90/52 98 Mechanical Ventilator 30 07/01/17 06:50 87 21 30 07/01/17 06:00 92 24 99/52 99 Mechanical Ventilator 30 07/01/17 05:00 95 23 95/56 100 Mechanical Ventilator 30 07/01/17 04:58 100 35 30 07/01/17 04:00 100 07/01/17 04:00 98.2 99 28 98/50 100 Mechanical Ventilator 30 07/01/17 04:00 30 07/01/17 03:10 92 24 30 07/01/17 03:00 96 27 100/51 100 Mechanical Ventilator 30 07/01/17 03:00 94 100/51 07/01/17 02:00 94 27 100/51 99 Mechanical Ventilator 30 07/01/17 01:00 103 29 121/62 100 Mechanical Ventilator 30 07/01/17 00:34 94 20 30 07/01/17 00:00 98.5 95 28 91/51 100 Mechanical Ventilator 30 06/30/17 23:00 96 21 87/52 100 Mechanical Ventilator 30 06/30/17 22:49 98 24 30 06/30/17 22:00 99 21 95/49 100 Mechanical Ventilator 30 06/30/17 21:14 92 27 30 06/30/17 21:00 94 21 98/52 100 Mechanical Ventilator 30 06/30/17 20:00 98 06/30/17 20:00 30 06/30/17 20:00 98.5 97 19 106/52 100 Mechanical Ventilator 30 06/30/17 19:05 94 30 30 06/30/17 19:00 95 21 100/47 100 Mechanical Ventilator 30 06/30/17 18:00 95 22 92/46 100 Mechanical Ventilator 30 06/30/17 17:08 102 22 30 06/30/17 17:00 98.8 58 39 96/48 99 06/30/17 16:00 30 06/30/17 16:00 98.8 58 39 96/48 99 06/30/17 16:00 91 06/30/17 15:21 91 25 30 06/30/17 15:00 93 36 99/46 100 Mechanical Ventilator 30 06/30/17 14:30 89 38 124/57 100 Mechanical Ventilator 30 06/30/17 14:00 89 37 106/51 100 Mechanical Ventilator 30 Intake and Output 06/30/17 07/01/17 19:00 07:00 Intake Total 975.5 ml 500 ml Output Total 0 ml 0 ml Balance 975.5 ml 500 ml Intake Free Water 60 ml IV Total 65.5 ml Tube Feeding 600 ml 500 ml Blood Product 250 ml Output Urine Total 0 ml 0 ml # Bowel Movements 1 4 Laboratory Tests 07/01/17 06:20: Random Vancomycin Level 18.0 Height (Feet): 5 Height (Inches): 10.00 Weight (Pounds): 171 Objective General Appearance: WD/WN, lethargic, confused Neck: supple Cardiovascular: regular rhythm Respiratory/Chest: chest wall non-tender, lungs clear, normal breath sounds, no respiratory distress Abdomen: normal bowel sounds, non tender, soft, no organomegaly, no mass Edema: no edema noted Arm (L), no edema noted Arm (R), no edema noted Leg (L), no edema noted Leg (R), no edema noted Pedal (L), no edema noted Pedal (R), no edema noted Generalized Neurologic: unresponsive, aphasia KEENA BRANDT Jul 01, 2017 13:50
--- NOTE | 2017-07-01 14:16 | Nephrology Progress Note ---
Assessment/Plan Problem List: (1) Healthcare-associated pneumonia (2) Malnutrition of moderate degree (3) End-stage renal disease (4) Respiratory failure (5) Septic shock Plan , meds reviewed for eskd,hypotension, mrsa sepsis, he isunable to sign as critically ill, hd via new cath 06/27 , flow variable observe hd 06/29,remains on pressors--off 1/5 am, hd 07/01 still low-nl bp poor prognosis Subjective ROS Limited/Unobtainable: Yes Objective Objective Last 24 Hour Vital Signs Date Time Temp Pulse Resp B/P (MAP) Pulse Ox O2 Delivery O2 Flow Rate FiO2 07/01/17 13:00 93 20 95/56 100 Mechanical Ventilator 30 07/01/17 12:50 93 21 30 07/01/17 12:10 Mechanical Ventilator 30 07/01/17 12:00 30 07/01/17 12:00 93 07/01/17 12:00 97.8 92 20 89/43 100 Mechanical Ventilator 30 07/01/17 11:07 90 23 30 07/01/17 11:00 89 19 108/52 100 Mechanical Ventilator 30 07/01/17 10:00 89 23 116/56 100 Mechanical Ventilator 30 07/01/17 09:00 88 19 101/52 98 Mechanical Ventilator 30 07/01/17 08:45 88 27 30 07/01/17 08:00 97.7 88 23 107/58 100 Mechanical Ventilator 30 07/01/17 08:00 30 07/01/17 08:00 91 07/01/17 07:00 89 22 90/52 98 Mechanical Ventilator 30 07/01/17 06:50 87 21 30 07/01/17 06:00 92 24 99/52 99 Mechanical Ventilator 30 07/01/17 05:00 95 23 95/56 100 Mechanical Ventilator 30 07/01/17 04:58 100 35 30 07/01/17 04:00 100 07/01/17 04:00 98.2 99 28 98/50 100 Mechanical Ventilator 30 07/01/17 04:00 30 07/01/17 03:10 92 24 30 07/01/17 03:00 96 27 100/51 100 Mechanical Ventilator 30 07/01/17 03:00 94 100/51 07/01/17 02:00 94 27 100/51 99 Mechanical Ventilator 30 07/01/17 01:00 103 29 121/62 100 Mechanical Ventilator 30 07/01/17 00:34 94 20 30 07/01/17 00:00 98.5 95 28 91/51 100 Mechanical Ventilator 30 06/30/17 23:00 96 21 87/52 100 Mechanical Ventilator 30 06/30/17 22:49 98 24 30 06/30/17 22:00 99 21 95/49 100 Mechanical Ventilator 30 06/30/17 21:14 92 27 30 06/30/17 21:00 94 21 98/52 100 Mechanical Ventilator 30 06/30/17 20:00 98 06/30/17 20:00 30 06/30/17 20:00 98.5 97 19 106/52 100 Mechanical Ventilator 30 06/30/17 19:05 94 30 30 06/30/17 19:00 95 21 100/47 100 Mechanical Ventilator 30 06/30/17 18:00 95 22 92/46 100 Mechanical Ventilator 30 06/30/17 17:08 102 22 30 06/30/17 17:00 98.8 58 39 96/48 99 06/30/17 16:00 30 06/30/17 16:00 98.8 58 39 96/48 99 06/30/17 16:00 91 06/30/17 15:21 91 25 30 06/30/17 15:00 93 36 99/46 100 Mechanical Ventilator 30 06/30/17 14:30 89 38 124/57 100 Mechanical Ventilator 30 Intake and Output 06/30/17 07/01/17 19:00 07:00 Intake Total 975.5 ml 500 ml Output Total 0 ml 0 ml Balance 975.5 ml 500 ml Intake Free Water 60 ml IV Total 65.5 ml Tube Feeding 600 ml 500 ml Blood Product 250 ml Output Urine Total 0 ml 0 ml # Bowel Movements 1 4 Laboratory Tests 07/01/17 06:20: Random Vancomycin Level 18.0 Height (Feet): 5 Height (Inches): 10.00 Weight (Pounds): 171 General Appearance: other - intubated EENT: normal ENT inspection Neck: normal alignment Cardiovascular: regular rhythm Respiratory/Chest: rhonchi - bilaterally Abdomen: non tender, soft Extremities: trace edema Neurologic: unresponsive LEONORA HUI Jul 01, 2017 14:16
--- NOTE | 2017-07-01 19:32 | Pulmonolgy Critical Care Note ---
Critical Care - Asmt/Plan Assessment/Plan: 1. Respiratory failure. 2. Sepsis with shock. 3. Possible dialysis catheter sepsis 4. Stroke with dementia and right hemiparesis. 5. Diabetes. pressor, titrate map greater than 65 mmhg still on vent, not tolerating weaning nebs and suction abx per id wound care watch io, may need thoracentesis TF and asp risk disc w RN pt is DNR Respiratory: CXR Cardiac: continue pressors Infectious Disease: check cultures, continue antibiotics Time Spent (Minutes): 50 Discussed with: nurses, consultants Critical Care - Objective Last 24 Hour Vital Signs Date Time Temp Pulse Resp B/P (MAP) Pulse Ox O2 Delivery O2 Flow Rate FiO2 07/01/17 19:12 98 30 30 07/01/17 18:00 105 19 104/55 100 Mechanical Ventilator 30 07/01/17 17:05 102 26 30 07/01/17 17:00 102 9 98/45 100 Mechanical Ventilator 30 07/01/17 16:00 101 07/01/17 16:00 98.0 100 20 90/42 100 Mechanical Ventilator 30 07/01/17 16:00 30 07/01/17 15:53 103 27 30 07/01/17 15:10 Mechanical Ventilator 30 07/01/17 15:00 103 20 85/43 100 Mechanical Ventilator 30 07/01/17 14:00 102 26 85/49 100 Mechanical Ventilator 30 07/01/17 13:00 93 20 95/56 100 Mechanical Ventilator 30 07/01/17 12:50 93 21 30 07/01/17 12:10 Mechanical Ventilator 30 07/01/17 12:00 30 07/01/17 12:00 93 07/01/17 12:00 97.8 92 20 89/43 100 Mechanical Ventilator 30 07/01/17 11:07 90 23 30 07/01/17 11:00 89 19 108/52 100 Mechanical Ventilator 30 07/01/17 10:00 89 23 116/56 100 Mechanical Ventilator 30 07/01/17 09:00 88 19 101/52 98 Mechanical Ventilator 30 07/01/17 08:45 88 27 30 07/01/17 08:00 97.7 88 23 107/58 100 Mechanical Ventilator 30 07/01/17 08:00 30 07/01/17 08:00 91 07/01/17 07:00 89 22 90/52 98 Mechanical Ventilator 30 07/01/17 06:50 87 21 30 07/01/17 06:00 92 24 99/52 99 Mechanical Ventilator 30 07/01/17 05:00 95 23 95/56 100 Mechanical Ventilator 30 07/01/17 04:58 100 35 30 07/01/17 04:00 100 07/01/17 04:00 98.2 99 28 98/50 100 Mechanical Ventilator 30 07/01/17 04:00 30 07/01/17 03:10 92 24 30 07/01/17 03:00 96 27 100/51 100 Mechanical Ventilator 30 07/01/17 03:00 94 100/51 07/01/17 02:00 94 27 100/51 99 Mechanical Ventilator 30 07/01/17 01:00 103 29 121/62 100 Mechanical Ventilator 30 07/01/17 00:34 94 20 30 07/01/17 00:00 98.5 95 28 91/51 100 Mechanical Ventilator 30 06/30/17 23:00 96 21 87/52 100 Mechanical Ventilator 30 06/30/17 22:49 98 24 30 06/30/17 22:00 99 21 95/49 100 Mechanical Ventilator 30 06/30/17 21:14 92 27 30 06/30/17 21:00 94 21 98/52 100 Mechanical Ventilator 30 06/30/17 20:00 98 06/30/17 20:00 30 06/30/17 20:00 98.5 97 19 106/52 100 Mechanical Ventilator 30 Status: obtunded Condition: critical Lungs: rhonchi Heart: HR/BP unstable Abdomen: soft, non-tender Extremities: edema Accucheck: 109 Blood Sugars: BS controlled Critical Care - Subjective ROS Limited/Unobtainable: Yes Condition: critical EKG Rhythm: SVT FI02: 30 Vent Support Breath Rate: 20 Vent Support Mode: AC Vent Tidal Volume: 500 Sputum Amount: Moderate PEEP: 5.0 PIP: 19 Tube Feeding Amount: 50 I&O: Intake and Output 06/30/17 07/01/17 19:00 07:00 Intake Total 975.5 ml 500 ml Output Total 0 ml 0 ml Balance 975.5 ml 500 ml Intake Free Water 60 ml IV Total 65.5 ml Tube Feeding 600 ml 500 ml Blood Product 250 ml Output Urine Total 0 ml 0 ml # Bowel Movements 1 4 Subjective: remains febrile intubated on the vent tachypnea noted hypoxemia as well tolerating tf no bleeding noted positive uop agitated at times. CXR: no new cxr since 06/26/17 ET-Tube: 8.0 ET Position: 23 LALO CUETO DO Jul 01, 2017 19:32
[2017-07-01] MEDS: Dyna-Hex 2% Top Sol 2oz TOPIC SCH (20:08)
[2017-07-01] MEDS ORDERED: Sterile Water Irrig 1000ml IRRIG ONE (22:52)
[2017-07-01] MEDS ORDERED: NS 500ML ONE (22:52)
[2017-07-02] VITALS (24 sets, daily range): BP systolic 94–132; BP diastolic 49–80
--- NOTE | 2017-07-02 00:45 | Progress Note ---
DATE: 07/01/2017 CARDIOLOGY PROGRESS NOTE SUBJECTIVE: Condition remains critical. Prognosis guarded. The patient remains on ventilator support. He is on pressors. Blood pressure is marginal. Hemodialysis with ultrafiltration performed today with new catheter. OBJECTIVE: LUNGS: Bilateral breath sounds. HEART: Regular rhythm and rate. ABDOMEN: Soft. EXTREMITIES: Trace edema. SKIN: Wounds are dressed. IMPRESSION: 1. Profound sepsis with shock. 2. Line sepsis due to dialysis catheter. 3. End-stage renal disease. 4. Acute myocardial infarction. 5. Advanced dementia. 6. Cerebrovascular accident with hemiparesis. PLAN: 1. We will try to discontinue pressors, no resumption. 2. Continue antimicrobials. 3. Maintain ventilator support. 4. Hemodialysis with ultrafiltration. 5. Limit blood transfusions. 6. If no progress, may consider comfort care. Gurdeep Harvey M.D. DR: ANN JOB#: [id number] CC:
--- NOTE | 2017-07-02 01:30 | Progress Note ---
DATE: 06/30/2017 CARDIOLOGY PROGRESS NOTE SUBJECTIVE: The patient remains in the intensive care unit. Condition remains critical, but prognosis remains guarded. The patient is DNR based on decisions by attending staff. There are no family members. The patient remains on pressor support and oral intubation with mechanical ventilation. OBJECTIVE: VITAL SIGNS: Blood pressure 92/40, pulse 94, respirations 29, and afebrile. SKIN: Pictured. LUNGS: Bilateral breath sounds. No wheezing. HEART: Regular rhythm and rate. Normal S1 and S2. ABDOMEN: Soft. EXTREMITIES: Trace edema. LABORATORY DATA: White count 12.4 and hemoglobin 7.3. Potassium 3.9, BUN 60, and creatinine 4.5. Albumin 1.1. IMPRESSION: 1. Respiratory failure. 2. Sepsis with shock. 3. Multiorgan system failure. 4. End-stage renal disease. 5. Anemia that is worsening. 6. Sepsis due to dialysis catheter, now removed. 7. 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 8. Type 2 diabetes mellitus with complications. PLAN: 1. Discontinue pressors as able. 2. Continue hemodialysis with ultrafiltration. 3. Ventilator support. 4. Wean as able. 5. May need trach. 6. We will discuss palliative care. Gurdeep Harvey M.D. DR: MALCOLM JOB#: [id number] CC:
[2017-07-02] MEDS: NovoLOG Insulin Flexpen SUBQ SCH ×3 (05:41→18:00)
[2017-07-02] MEDS: Aspirin Baby 81mg NG SCH (08:14)
[2017-07-02] MEDS: Heparin 5000 units/ml inj SUBQ SCH ×2 (08:18→19:56)
--- NOTE | 2017-07-02 08:29 | General Progress Note ---
Assessment/Plan Problem List: (1) Catheter-related bloodstream infection ICD Codes: T80.211A - Bloodstream infection due to central venous catheter, initial encounter SNOMED: 498579998 (2) Renal failure ICD Codes: N19 - Unspecified kidney failure SNOMED: 13129963 (3) Septic shock ICD Codes: A41.9 - Sepsis, unspecified organism; R65.21 - Severe sepsis with septic shock SNOMED: 88379838 (4) Respiratory failure ICD Codes: J96.90 - Respiratory failure, unspecified, unspecified whether with hypoxia or hypercapnia SNOMED: 186030887 (5) Malnutrition of moderate degree ICD Codes: E44.0 - Moderate protein-calorie malnutrition SNOMED: 842276411 (6) End-stage renal disease ICD Codes: N18.6 - End stage renal disease SNOMED: 97205699 (7) Healthcare-associated pneumonia ICD Codes: J18.9 - Pneumonia, unspecified organism SNOMED: 307109984 Status: stable, progressing Assessment/Plan cont iv abx HD as tolerated. wean pressors as able wean vent- more alert resp rx feeds dvt/stress ulcer prophyalxi monitor h/h transfuse as needed epo/iron critical and guarded dnr Subjective ROS Limited/Unobtainable: Yes Constitutional: Reports: malaise, weakness HEENT: Reports: no symptoms Cardiovascular: Reports: no symptoms Respiratory: Reports: no symptoms Gastrointestinal/Abdominal: Reports: difficulty swallowing Genitourinary: Reports: no symptoms Neurologic/Psychiatric: Reports: pre-existing deficit Endocrine: Reports: no symptoms Hematologic/Lymphatic: Reports: anemia Allergies: Coded Allergies: No Known Allergies (Unverified , 06/18/17) All Systems: reviewed and negative except above Subjective remains intubated. much more alert. tracks. no secretion or congestion. Objective Last 24 Hour Vital Signs Date Time Temp Pulse Resp B/P (MAP) Pulse Ox O2 Delivery O2 Flow Rate FiO2 07/02/17 07:01 95 28 30 07/02/17 07:00 95 33 117/54 100 Mechanical Ventilator 30 07/02/17 06:00 94 33 116/56 100 Mechanical Ventilator 30 07/02/17 05:00 98 28 132/80 100 Mechanical Ventilator 30 07/02/17 04:43 96 33 30 07/02/17 04:00 94 07/02/17 04:00 30 07/02/17 04:00 98.2 93 31 109/54 100 Mechanical Ventilator 30 07/02/17 03:00 94 24 107/52 100 Mechanical Ventilator 30 07/02/17 02:54 94 23 30 07/02/17 02:00 94 28 103/54 100 Mechanical Ventilator 30 07/02/17 01:21 94 32 30 07/02/17 01:00 94 30 111/52 100 Mechanical Ventilator 30 07/02/17 00:00 98.1 94 28 106/52 100 Mechanical Ventilator 30 07/01/17 23:22 94 26 30 07/01/17 23:00 94 30 101/54 100 Mechanical Ventilator 30 07/01/17 22:00 95 30 99/52 100 Mechanical Ventilator 30 07/01/17 21:24 94 26 30 07/01/17 21:00 95 31 92/51 100 Mechanical Ventilator 30 07/01/17 20:00 98 07/01/17 20:00 30 07/01/17 20:00 97.9 97 28 90/49 100 Mechanical Ventilator 30 07/01/17 19:12 98 30 30 07/01/17 19:00 99 31 101/52 100 Mechanical Ventilator 30 07/01/17 18:00 105 19 104/55 100 Mechanical Ventilator 30 07/01/17 17:05 102 26 30 07/01/17 17:00 102 9 98/45 100 Mechanical Ventilator 30 07/01/17 16:00 101 07/01/17 16:00 98.0 100 20 90/42 100 Mechanical Ventilator 30 07/01/17 16:00 30 07/01/17 15:53 103 27 30 07/01/17 15:10 Mechanical Ventilator 30 07/01/17 15:00 103 20 85/43 100 Mechanical Ventilator 30 07/01/17 14:00 102 26 85/49 100 Mechanical Ventilator 30 07/01/17 13:00 93 20 95/56 100 Mechanical Ventilator 30 07/01/17 12:50 93 21 30 07/01/17 12:10 Mechanical Ventilator 30 07/01/17 12:00 30 07/01/17 12:00 93 07/01/17 12:00 97.8 92 20 89/43 100 Mechanical Ventilator 30 07/01/17 11:07 90 23 30 07/01/17 11:00 89 19 108/52 100 Mechanical Ventilator 30 07/01/17 10:00 89 23 116/56 100 Mechanical Ventilator 30 07/01/17 09:00 88 19 101/52 98 Mechanical Ventilator 30 07/01/17 08:45 88 27 30 Intake and Output 07/01/17 07/02/17 19:00 07:00 Intake Total 760 ml 600 ml Output Total 0 ml 0 ml Balance 760 ml 600 ml Tube Feeding 500 ml 600 ml Hemodialysis 200 ml Other 60 ml Output Urine Total 0 ml 0 ml # Bowel Movements 3 1 Height (Feet): 5 Height (Inches): 10.00 Weight (Pounds): 172 Respiratory/Chest: rhonchi - bilaterally Neurologic: unresponsive Objective General Appearance: WD/WN, lethargic, confused Neck: supple Cardiovascular: regular rhythm Respiratory/Chest: chest wall non-tender, lungs clear, normal breath sounds, no respiratory distress Abdomen: normal bowel sounds, non tender, soft, no organomegaly, no mass Edema: no edema noted Arm (L), no edema noted Arm (R), no edema noted Leg (L), no edema noted Leg (R), no edema noted Pedal (L), no edema noted Pedal (R), no edema noted Generalized Neurologic: unresponsive, aphasia KEENA BRANDT Jul 02, 2017 08:29
--- NOTE | 2017-07-02 10:24 | Infectious Diseases Prog Note ---
Assessment/Plan Assessment/Plan A 1. MRSA sepsis s/p catheter removal 2. septic shock 3. respiratory failure 4. renal failure, ESRD 5. staph aureus , Enterobacter pneumonia P 1. continue vancomycin iv, continue Cefepime 2. STARTED ON WEANING PROCESS Subjective ROS Limited/Unobtainable: Yes Neurologic: Reports: other - more alert Allergies: Coded Allergies: No Known Allergies (Unverified , 06/18/17) Objective Vital Signs Last 24 Hour Vital Signs Date Time Temp Pulse Resp B/P (MAP) Pulse Ox O2 Delivery O2 Flow Rate FiO2 07/02/17 10:00 96 34 113/54 100 Mechanical Ventilator 30 07/02/17 09:20 92 28 30 07/02/17 09:15 100 07/02/17 09:13 90 22 30 07/02/17 09:00 92 30 104/53 100 Mechanical Ventilator 30 07/02/17 08:00 30 07/02/17 08:00 92 07/02/17 08:00 98.3 92 26 107/52 100 Mechanical Ventilator 30 07/02/17 07:01 95 28 30 07/02/17 07:00 95 33 117/54 100 Mechanical Ventilator 30 07/02/17 06:00 94 33 116/56 100 Mechanical Ventilator 30 07/02/17 05:00 98 28 132/80 100 Mechanical Ventilator 30 07/02/17 04:43 96 33 30 07/02/17 04:00 94 07/02/17 04:00 30 07/02/17 04:00 98.2 93 31 109/54 100 Mechanical Ventilator 30 07/02/17 03:00 94 24 107/52 100 Mechanical Ventilator 30 07/02/17 02:54 94 23 30 07/02/17 02:00 94 28 103/54 100 Mechanical Ventilator 30 07/02/17 01:21 94 32 30 07/02/17 01:00 94 30 111/52 100 Mechanical Ventilator 30 07/02/17 00:00 98.1 94 28 106/52 100 Mechanical Ventilator 30 07/01/17 23:22 94 26 30 07/01/17 23:00 94 30 101/54 100 Mechanical Ventilator 30 07/01/17 22:00 95 30 99/52 100 Mechanical Ventilator 30 07/01/17 21:24 94 26 30 07/01/17 21:00 95 31 92/51 100 Mechanical Ventilator 30 07/01/17 20:00 98 1/6/18 20:00 30 07/01/17 20:00 97.9 97 28 90/49 100 Mechanical Ventilator 30 07/01/17 19:12 98 30 30 07/01/17 19:00 99 31 101/52 100 Mechanical Ventilator 30 07/01/17 18:00 105 19 104/55 100 Mechanical Ventilator 30 07/01/17 17:05 102 26 30 07/01/17 17:00 102 9 98/45 100 Mechanical Ventilator 30 07/01/17 16:00 101 07/01/17 16:00 98.0 100 20 90/42 100 Mechanical Ventilator 30 07/01/17 16:00 30 07/01/17 15:53 103 27 30 07/01/17 15:10 Mechanical Ventilator 30 07/01/17 15:00 103 20 85/43 100 Mechanical Ventilator 30 07/01/17 14:00 102 26 85/49 100 Mechanical Ventilator 30 07/01/17 13:00 93 20 95/56 100 Mechanical Ventilator 30 07/01/17 12:50 93 21 30 07/01/17 12:10 Mechanical Ventilator 30 07/01/17 12:00 30 07/01/17 12:00 93 07/01/17 12:00 97.8 92 20 89/43 100 Mechanical Ventilator 30 07/01/17 11:07 90 23 30 07/01/17 11:00 89 19 108/52 100 Mechanical Ventilator 30 Height (Feet): 5 Height (Inches): 10.00 Weight (Pounds): 172 General Appearance: no acute distress HEENT: other - orally intubated Respiratory/Chest: lungs clear, other - on ventilator Cardiovascular: normal rate, other - left IJ Quintons catheter Extremities: other - mild edema in left side Neurologic/Psychiatric: other - opens eyes Current Medications Medications (Trade) Dose Ordered Sig/Jaime Route PRN Reason Start Time Stop Time Status Last Admin Dose Admin Acetaminophen (Tylenol) 650 mg Q4H PRN RECTAL Prn Headache/Temp > 101 06/18/17 21:00 07/18/17 20:59 06/20/17 12:42 Aspirin (ASA) 81 mg DAILY NG 06/19/17 19:00 07/19/17 18:59 07/02/17 08:14 Cefepime HCl 1 gm/ Dextrose 55 ml @ 110 mls/hr Q24H IVPB 06/28/17 11:00 07/04/17 23:59 07/01/17 10:41 Chlorhexidine Gluconate (Kati-Hex 2%) 1 applic Q24H TOPIC 06/19/17 20:00 07/19/17 19:59 07/01/17 20:08 Dextrose (Dextrose 50%) STAT PRN IV Hypoglycemia 06/19/17 13:00 07/19/17 12:59 06/23/17 05:35 Epoetin Russ (Procrit (for ESRD on dialysis)) 5,000 units MON-MON-MON SUBQ 06/21/17 21:00 07/21/17 20:59 06/30/17 21:38 Heparin Sodium (Porcine) (Heparin 5000 units/ml) 5,000 units EVERY 12 HOURS SUBQ 06/18/17 21:00 07/18/17 20:59 07/02/17 08:18 Insulin Aspart (NovoLOG) EVERY 6 HOURS SUBQ 06/19/17 18:00 07/19/17 17:59 07/02/17 05:41 Lansoprazole (Prevacid) 30 mg DAILY GT 06/19/17 09:00 07/19/17 08:59 07/02/17 08:14 Sodium Chloride 1,000 ml @ 500 mls/hr Q2H PRN IVLG sbp<90 during hd 06/27/17 11:09 07/27/17 11:08 Vancomycin HCl (Vanco rx to dose) 1 ea DAILY PRN MISC Per rx protocol 06/19/17 02:45 07/19/17 02:44 ZAIRA ROBLES Jul 02, 2017 10:24
[2017-07-02] MEDS: Cefepime HCl 1 GM in D5W 55 ML IVPB SCH (11:25)
--- NOTE | 2017-07-02 11:37 | Nephrology Progress Note ---
Assessment/Plan Problem List: (1) Healthcare-associated pneumonia (2) Malnutrition of moderate degree (3) End-stage renal disease (4) Respiratory failure (5) Septic shock Plan , meds reviewed for eskd,hypotension, mrsa sepsis, he isunable to sign as critically ill, hd via new cath 06/27 , flow variable observe hd 06/29,remains on pressors--off 1/5 am, hd 07/01 still low-nl bp , unresponsive, poor prognosis Subjective ROS Limited/Unobtainable: Yes Objective Objective Last 24 Hour Vital Signs Date Time Temp Pulse Resp B/P (MAP) Pulse Ox O2 Delivery O2 Flow Rate FiO2 07/02/17 11:00 94 30 111/54 100 Mechanical Ventilator 30 07/02/17 10:48 98 33 30 07/02/17 10:00 96 34 113/54 100 Mechanical Ventilator 30 07/02/17 09:20 92 28 30 07/02/17 09:15 100 07/02/17 09:13 90 22 30 07/02/17 09:00 92 30 104/53 100 Mechanical Ventilator 30 07/02/17 08:00 30 07/02/17 08:00 92 07/02/17 08:00 98.3 92 26 107/52 100 Mechanical Ventilator 30 07/02/17 07:01 95 28 30 07/02/17 07:00 95 33 117/54 100 Mechanical Ventilator 30 07/02/17 06:00 94 33 116/56 100 Mechanical Ventilator 30 07/02/17 05:00 98 28 132/80 100 Mechanical Ventilator 30 07/02/17 04:43 96 33 30 07/02/17 04:00 94 07/02/17 04:00 30 07/02/17 04:00 98.2 93 31 109/54 100 Mechanical Ventilator 30 07/02/17 03:00 94 24 107/52 100 Mechanical Ventilator 30 07/02/17 02:54 94 23 30 07/02/17 02:00 94 28 103/54 100 Mechanical Ventilator 30 07/02/17 01:21 94 32 30 07/02/17 01:00 94 30 111/52 100 Mechanical Ventilator 30 07/02/17 00:00 98.1 94 28 106/52 100 Mechanical Ventilator 30 07/01/17 23:22 94 26 30 07/01/17 23:00 94 30 101/54 100 Mechanical Ventilator 30 07/01/17 22:00 95 30 99/52 100 Mechanical Ventilator 30 07/01/17 21:24 94 26 30 07/01/17 21:00 95 31 92/51 100 Mechanical Ventilator 30 07/01/17 20:00 98 07/01/17 20:00 30 07/01/17 20:00 97.9 97 28 90/49 100 Mechanical Ventilator 30 07/01/17 19:12 98 30 30 07/01/17 19:00 99 31 101/52 100 Mechanical Ventilator 30 07/01/17 18:00 105 19 104/55 100 Mechanical Ventilator 30 07/01/17 17:05 102 26 30 07/01/17 17:00 102 9 98/45 100 Mechanical Ventilator 30 07/01/17 16:00 101 07/01/17 16:00 98.0 100 20 90/42 100 Mechanical Ventilator 30 07/01/17 16:00 30 07/01/17 15:53 103 27 30 07/01/17 15:10 Mechanical Ventilator 30 07/01/17 15:00 103 20 85/43 100 Mechanical Ventilator 30 07/01/17 14:00 102 26 85/49 100 Mechanical Ventilator 30 07/01/17 13:00 93 20 95/56 100 Mechanical Ventilator 30 07/01/17 12:50 93 21 30 07/01/17 12:10 Mechanical Ventilator 30 07/01/17 12:00 30 07/01/17 12:00 93 07/01/17 12:00 97.8 92 20 89/43 100 Mechanical Ventilator 30 Intake and Output 07/01/17 07/02/17 19:00 07:00 Intake Total 760 ml 600 ml Output Total 0 ml 0 ml Balance 760 ml 600 ml Tube Feeding 500 ml 600 ml Hemodialysis 200 ml Other 60 ml Output Urine Total 0 ml 0 ml # Bowel Movements 3 1 Height (Feet): 5 Height (Inches): 10.00 Weight (Pounds): 172 General Appearance: other - intubated EENT: normal ENT inspection Neck: normal alignment Cardiovascular: regular rhythm, tachycardia Respiratory/Chest: rhonchi - bilaterally Abdomen: non tender Extremities: trace edema Neurologic: unresponsive LEONORA HUI Jul 02, 2017 11:37
[2017-07-02 13:24] LABS: BASOPHILS % (AUTO) 0.5 % (0.0-2.0); EOSINOPHILS % (AUTO) 1.3 % (0.0-3.0); HEMATOCRIT 29.4 % (42.0-52.0); LYMPHOCYTES % (AUTO) 16.1 % (20.0-45.0); MEAN CORPUSCULAR VOLUME 89 FL (80-99); MONOCYTES % (AUTO) 10.5 % (1.0-10.0); NEUTROPHILS % (AUTO) 71.5 % (45.0-75.0); PLATELET COUNT 312 K/UL (150-450); RED BLOOD COUNT 3.29 M/UL (4.70-6.10); RED CELL DISTRIBUTION WIDTH 19.2 % (11.6-14.8); WHITE BLOOD COUNT 9.4 K/UL (4.8-10.8)
--- NOTE | 2017-07-02 16:21 | Pulmonolgy Critical Care Note ---
Critical Care - Asmt/Plan Assessment/Plan: 1. Respiratory failure. 2. Sepsis with shock. 3. Possible dialysis catheter sepsis 4. Stroke with dementia and right hemiparesis. 5. Diabetes. pressor, titrate map greater than 65 mmhg still on vent, not tolerating weaning nebs and suction abx per id wound care unable to view cxr and no report available watch io, may need thoracentesis TF and asp risk disc w RN pt is DNR Time Spent (Minutes): 50 Critical Care - Objective Last 24 Hour Vital Signs Date Time Temp Pulse Resp B/P (MAP) Pulse Ox O2 Delivery O2 Flow Rate FiO2 07/02/17 16:00 30 07/02/17 16:00 92 07/02/17 16:00 97.5 92 29 111/56 100 Mechanical Ventilator 30 07/02/17 15:00 91 24 108/56 100 Mechanical Ventilator 30 07/02/17 14:57 91 25 30 07/02/17 14:00 95 23 118/76 100 Mechanical Ventilator 30 07/02/17 13:00 95 34 116/56 100 Mechanical Ventilator 30 07/02/17 12:51 94 27 30 07/02/17 12:00 30 07/02/17 12:00 93 07/02/17 12:00 98.4 93 28 113/56 100 Mechanical Ventilator 30 07/02/17 11:00 94 30 111/54 100 Mechanical Ventilator 30 07/02/17 10:48 98 33 30 07/02/17 10:00 96 34 113/54 100 Mechanical Ventilator 30 07/02/17 09:20 92 28 30 07/02/17 09:15 100 07/02/17 09:13 90 22 30 07/02/17 09:00 92 30 104/53 100 Mechanical Ventilator 30 07/02/17 08:00 30 07/02/17 08:00 92 07/02/17 08:00 98.3 92 26 107/52 100 Mechanical Ventilator 30 07/02/17 07:01 95 28 30 07/02/17 07:00 95 33 117/54 100 Mechanical Ventilator 30 07/02/17 06:00 94 33 116/56 100 Mechanical Ventilator 30 07/02/17 05:00 98 28 132/80 100 Mechanical Ventilator 30 07/02/17 04:43 96 33 30 07/02/17 04:00 94 07/02/17 04:00 30 07/02/17 04:00 98.2 93 31 109/54 100 Mechanical Ventilator 30 07/02/17 03:00 94 24 107/52 100 Mechanical Ventilator 30 07/02/17 02:54 94 23 30 07/02/17 02:00 94 28 103/54 100 Mechanical Ventilator 30 07/02/17 01:21 94 32 30 07/02/17 01:00 94 30 111/52 100 Mechanical Ventilator 30 07/02/17 00:00 98.1 94 28 106/52 100 Mechanical Ventilator 30 07/01/17 23:22 94 26 30 07/01/17 23:00 94 30 101/54 100 Mechanical Ventilator 30 07/01/17 22:00 95 30 99/52 100 Mechanical Ventilator 30 07/01/17 21:24 94 26 30 07/01/17 21:00 95 31 92/51 100 Mechanical Ventilator 30 07/01/17 20:00 98 07/01/17 20:00 30 07/01/17 20:00 97.9 97 28 90/49 100 Mechanical Ventilator 30 07/01/17 19:12 98 30 30 07/01/17 19:00 99 31 101/52 100 Mechanical Ventilator 30 07/01/17 18:00 105 19 104/55 100 Mechanical Ventilator 30 07/01/17 17:05 102 26 30 07/01/17 17:00 102 9 98/45 100 Mechanical Ventilator 30 Status: obtunded Condition: critical HEENT: atraumatic Lungs: rhonchi Heart: HR/BP unstable, edema Abdomen: soft, non-tender Extremities: edema Decubiti: location Accucheck: 142 Blood Sugars: BS controlled Critical Care - Subjective ROS Limited/Unobtainable: Yes Condition: critical FI02: 30 Vent Support Breath Rate: 12 Vent Support Mode: IMV/SIMV Vent Tidal Volume: 500 Sputum Amount: Moderate PEEP: 5.0 PIP: 24 Tube Feeding Amount: 50 I&O: Intake and Output 07/01/17 07/02/17 19:00 07:00 Intake Total 760 ml 600 ml Output Total 0 ml 0 ml Balance 760 ml 600 ml Tube Feeding 500 ml 600 ml Hemodialysis 200 ml Other 60 ml Output Urine Total 0 ml 0 ml # Bowel Movements 3 1 Subjective: remains febrile intubated on the vent less tachypnea this afternoon hypoxemia tolerating tf no bleeding noted positive uop ET-Tube: 8.0 ET Position: 23 Labs: Current Medications Medications (Trade) Dose Ordered Sig/Jaime Route PRN Reason Start Time Stop Time Status Last Admin Dose Admin Acetaminophen (Tylenol) 650 mg Q4H PRN RECTAL Prn Headache/Temp > 101 06/18/17 21:00 07/18/17 20:59 06/20/17 12:42 Aspirin (ASA) 81 mg DAILY NG 06/19/17 19:00 07/19/17 18:59 07/02/17 08:14 Cefepime HCl 1 gm/ Dextrose 55 ml @ 110 mls/hr Q24H IVPB 06/28/17 11:00 07/04/17 23:59 07/02/17 11:25 Chlorhexidine Gluconate (Kati-Hex 2%) 1 applic Q24H TOPIC 06/19/17 20:00 07/19/17 19:59 07/01/17 20:08 Dextrose (Dextrose 50%) STAT PRN IV Hypoglycemia 06/19/17 13:00 07/19/17 12:59 06/23/17 05:35 Epoetin Russ (Procrit (for ESRD on dialysis)) 5,000 units MON-WED-FRI SUBQ 06/21/17 21:00 07/21/17 20:59 06/30/17 21:38 Heparin Sodium (Porcine) (Heparin 5000 units/ml) 5,000 units EVERY 12 HOURS SUBQ 06/18/17 21:00 07/18/17 20:59 07/02/17 08:18 Insulin Aspart (NovoLOG) EVERY 6 HOURS SUBQ 06/19/17 18:00 07/19/17 17:59 07/02/17 11:43 Lansoprazole (Prevacid) 30 mg DAILY GT 06/19/17 09:00 07/19/17 08:59 07/02/17 08:14 Sodium Chloride 1,000 ml @ 500 mls/hr Q2H PRN IVLG sbp<90 during hd 06/27/17 11:09 07/27/17 11:08 Vancomycin HCl (Vanco rx to dose) 1 ea DAILY PRN MISC Per rx protocol 06/19/17 02:45 07/19/17 02:44 Laboratory Tests Test 07/02/17 12:30 White Blood Count 9.4 K/UL (4.8-10.8) Red Blood Count 3.29 M/UL (4.70-6.10) L Hemoglobin 9.0 G/DL (14.2-18.0) L Hematocrit 29.4 % (42.0-52.0) L Mean Corpuscular Volume 89 FL (80-99) Mean Corpuscular Hemoglobin 27.5 PG (27.0-31.0) Mean Corpuscular Hemoglobin Concent 30.8 G/DL (32.0-36.0) L Red Cell Distribution Width 19.2 % (11.6-14.8) H Platelet Count 312 K/UL (150-450) Mean Platelet Volume 6.5 FL (6.5-10.1) Neutrophils (%) (Auto) 71.5 % (45.0-75.0) Lymphocytes (%) (Auto) 16.1 % (20.0-45.0) L Monocytes (%) (Auto) 10.5 % (1.0-10.0) H Eosinophils (%) (Auto) 1.3 % (0.0-3.0) Basophils (%) (Auto) 0.5 % (0.0-2.0) LALO CUETO DO Jul 02, 2017 16:21
[2017-07-02] MEDS: Dyna-Hex 2% Top Sol 2oz TOPIC SCH (20:00)
[2017-07-03] VITALS (24 sets, daily range): BP systolic 95–126; BP diastolic 45–78
[2017-07-03 06:35] LABS: ANION GAP 11 mmol/L (5-15); BLOOD UREA NITROGEN 51 mg/dL (7-18); CALCIUM 7.1 MG/DL (8.5-10.1); CARBON DIOXIDE 22 MMOL/L (21-32); CHLORIDE 107 MMOL/L (98-107); CREATININE 4.3 MG/DL (0.55-1.30); POTASSIUM 4.2 MMOL/L (3.5-5.1); SODIUM 140 MMOL/L (136-145)
[2017-07-03 06:44] LABS: BASOPHILS % (AUTO) 0.6 % (0.0-2.0); EOSINOPHILS % (AUTO) 1.3 % (0.0-3.0); HEMATOCRIT 27.1 % (42.0-52.0); HEMOGLOBIN 8.6 G/DL (14.2-18.0); LYMPHOCYTES % (AUTO) 17.8 % (20.0-45.0); MEAN CORPUSCULAR VOLUME 90 FL (80-99); MONOCYTES % (AUTO) 8.4 % (1.0-10.0); NEUTROPHILS % (AUTO) 71.9 % (45.0-75.0); PLATELET COUNT 337 K/UL (150-450); RED BLOOD COUNT 3.02 M/UL (4.70-6.10); RED CELL DISTRIBUTION WIDTH 19.2 % (11.6-14.8); WHITE BLOOD COUNT 7.7 K/UL (4.8-10.8)
[2017-07-03] MEDS: NovoLOG Insulin Flexpen SUBQ SCH ×4 (06:44→18:15)
--- NOTE | 2017-07-03 08:43 | General Progress Note ---
Assessment/Plan Problem List: (1) Catheter-related bloodstream infection ICD Codes: T80.211A - Bloodstream infection due to central venous catheter, initial encounter SNOMED: 651521016 (2) Renal failure ICD Codes: N19 - Unspecified kidney failure SNOMED: 15495864 (3) Septic shock ICD Codes: A41.9 - Sepsis, unspecified organism; R65.21 - Severe sepsis with septic shock SNOMED: 58205833 (4) Respiratory failure ICD Codes: J96.90 - Respiratory failure, unspecified, unspecified whether with hypoxia or hypercapnia SNOMED: 473315615 (5) Malnutrition of moderate degree ICD Codes: E44.0 - Moderate protein-calorie malnutrition SNOMED: 688893174 (6) End-stage renal disease ICD Codes: N18.6 - End stage renal disease SNOMED: 37688410 (7) Healthcare-associated pneumonia ICD Codes: J18.9 - Pneumonia, unspecified organism SNOMED: 857603780 Status: stable, progressing Assessment/Plan cont iv abx HD as tolerated. wean pressors as able wean vent- more alert resp rx feeds dvt/stress ulcer prophyalxi monitor h/h transfuse as needed epo/iron critical and guarded dnr Subjective ROS Limited/Unobtainable: Yes Constitutional: Reports: malaise, weakness HEENT: Reports: no symptoms Cardiovascular: Reports: no symptoms Respiratory: Reports: shortness of breath Gastrointestinal/Abdominal: Reports: difficulty swallowing Genitourinary: Reports: no symptoms Neurologic/Psychiatric: Reports: pre-existing deficit Endocrine: Reports: no symptoms Hematologic/Lymphatic: Reports: no symptoms Allergies: Coded Allergies: No Known Allergies (Unverified , 06/18/17) All Systems: reviewed and negative except above Subjective remains intubated. much more alert. tracks. no secretion or congestion. d/w dr harp. Objective Last 24 Hour Vital Signs Date Time Temp Pulse Resp B/P (MAP) Pulse Ox O2 Delivery O2 Flow Rate FiO2 07/03/17 07:00 93 24 120/78 100 Mechanical Ventilator 30 07/03/17 07:00 97 25 30 07/03/17 06:00 92 24 118/70 100 Mechanical Ventilator 30 07/03/17 05:29 92 31 30 07/03/17 05:00 92 24 107/56 100 Mechanical Ventilator 30 07/03/17 04:00 94 07/03/17 04:00 97.5 91 28 109/56 100 Mechanical Ventilator 30 07/03/17 04:00 30 07/03/17 03:28 98 33 30 07/03/17 03:00 94 24 110/55 100 Mechanical Ventilator 30 07/03/17 02:00 92 24 99/55 100 Mechanical Ventilator 30 07/03/17 01:21 91 28 30 07/03/17 01:00 89 24 95/53 100 Mechanical Ventilator 30 07/03/17 00:00 30 07/03/17 00:00 97.5 89 24 111/56 100 Mechanical Ventilator 30 07/02/17 23:04 87 24 30 07/02/17 23:00 88 26 107/57 100 Mechanical Ventilator 30 07/02/17 22:00 87 26 104/55 100 Mechanical Ventilator 30 07/02/17 21:00 88 26 98/50 100 Mechanical Ventilator 30 07/02/17 20:55 95 26 30 07/02/17 20:00 97.2 89 22 96/51 100 Mechanical Ventilator 30 07/02/17 20:00 88 07/02/17 20:00 30 07/02/17 19:18 92 28 30 07/02/17 19:00 90 26 98/49 100 Mechanical Ventilator 30 07/02/17 18:00 92 21 106/54 100 Mechanical Ventilator 30 07/02/17 17:00 89 26 94/52 100 Mechanical Ventilator 30 07/02/17 16:56 91 24 30 07/02/17 16:00 30 07/02/17 16:00 92 07/02/17 16:00 97.5 92 29 111/56 100 Mechanical Ventilator 30 07/02/17 15:00 91 24 108/56 100 Mechanical Ventilator 30 07/02/17 14:57 91 25 30 07/02/17 14:00 95 23 118/76 100 Mechanical Ventilator 30 07/02/17 13:00 95 34 116/56 100 Mechanical Ventilator 30 07/02/17 12:51 94 27 30 07/02/17 12:00 30 07/02/17 12:00 93 07/02/17 12:00 98.4 93 28 113/56 100 Mechanical Ventilator 30 07/02/17 11:00 94 30 111/54 100 Mechanical Ventilator 30 07/02/17 10:48 98 33 30 07/02/17 10:00 96 34 113/54 100 Mechanical Ventilator 30 07/02/17 09:20 92 28 30 07/02/17 09:15 100 07/02/17 09:13 90 22 30 07/02/17 09:00 92 30 104/53 100 Mechanical Ventilator 30 Intake and Output 07/02/17 07/03/17 19:00 07:00 Intake Total 655 ml 700 ml Output Total 0 ml 0 ml Balance 655 ml 700 ml Intake Free Water 100 ml IV Total 55 ml Tube Feeding 600 ml 600 ml Output Urine Total 0 ml 0 ml # Bowel Movements 2 3 Laboratory Tests 07/02/17 12:30: White Blood Count 9.4, Red Blood Count 3.29L, Hemoglobin 9.0L, Hematocrit 29.4L , Mean Corpuscular Volume 89, Mean Corpuscular Hemoglobin 27.5, Mean Corpuscular Hemoglobin Concent 30.8L, Red Cell Distribution Width 19.2H, Platelet Count 312, Mean Platelet Volume 6.5, Neutrophils (%) (Auto) 71.5, Lymphocytes (%) (Auto) 16.1L, Monocytes (%) (Auto) 10.5H, Eosinophils (%) (Auto ) 1.3, Basophils (%) (Auto) 0.5 07/03/17 04:30: White Blood Count 7.7, Red Blood Count 3.02L, Hemoglobin 8.6L, Hematocrit 27.1L , Mean Corpuscular Volume 90, Mean Corpuscular Hemoglobin 28.6, Mean Corpuscular Hemoglobin Concent 31.9L, Red Cell Distribution Width 19.2H, Platelet Count 337, Mean Platelet Volume 6.3L, Neutrophils (%) (Auto) 71.9, Lymphocytes (%) (Auto) 17.8L, Monocytes (%) (Auto) 8.4, Eosinophils (%) (Auto) 1.3, Basophils (%) (Auto) 0.6, Sodium Level 140, Potassium Level 4.2, Chloride Level 107, Carbon Dioxide Level 22, Anion Gap 11, Blood Urea Nitrogen 51H, Creatinine 4.3H, Estimat Glomerular Filtration Rate , Glucose Level 110H, Calcium Level 7.1L Height (Feet): 5 Height (Inches): 10.00 Weight (Pounds): 173 Neck: supple Objective General Appearance: WD/WN, lethargic, confused Neck: supple Cardiovascular: regular rhythm Respiratory/Chest: chest wall non-tender, lungs clear, normal breath sounds, no respiratory distress Abdomen: normal bowel sounds, non tender, soft, no organomegaly, no mass Edema: no edema noted Arm (L), no edema noted Arm (R), no edema noted Leg (L), no edema noted Leg (R), no edema noted Pedal (L), no edema noted Pedal (R), no edema noted Generalized Neurologic: more alert, aphasia KEENA BRANDT Jul 03, 2017 08:43
--- NOTE | 2017-07-03 08:58 | Nephrology Progress Note ---
Assessment/Plan Problem List: (1) Healthcare-associated pneumonia (2) Malnutrition of moderate degree (3) End-stage renal disease (4) Respiratory failure (5) Septic shock Plan , meds reviewed for eskd,hypotension, mrsa sepsis, he isunable to sign as critically ill, hd via new cath 06/27 , flow variable observe hd 06/29,remains on pressors--off 1/5 am, hd 07/01 still low-nl bp , unresponsive, poor prognosis hd 07/04 Subjective ROS Limited/Unobtainable: Yes Objective Objective Last 24 Hour Vital Signs Date Time Temp Pulse Resp B/P (MAP) Pulse Ox O2 Delivery O2 Flow Rate FiO2 07/03/17 07:00 93 24 120/78 100 Mechanical Ventilator 30 07/03/17 07:00 97 25 30 07/03/17 06:00 92 24 118/70 100 Mechanical Ventilator 30 07/03/17 05:29 92 31 30 07/03/17 05:00 92 24 107/56 100 Mechanical Ventilator 30 07/03/17 04:00 94 07/03/17 04:00 97.5 91 28 109/56 100 Mechanical Ventilator 30 07/03/17 04:00 30 07/03/17 03:28 98 33 30 07/03/17 03:00 94 24 110/55 100 Mechanical Ventilator 30 07/03/17 02:00 92 24 99/55 100 Mechanical Ventilator 30 07/03/17 01:21 91 28 30 07/03/17 01:00 89 24 95/53 100 Mechanical Ventilator 30 07/03/17 00:00 30 07/03/17 00:00 97.5 89 24 111/56 100 Mechanical Ventilator 30 07/02/17 23:04 87 24 30 07/02/17 23:00 88 26 107/57 100 Mechanical Ventilator 30 07/02/17 22:00 87 26 104/55 100 Mechanical Ventilator 30 07/02/17 21:00 88 26 98/50 100 Mechanical Ventilator 30 07/02/17 20:55 95 26 30 07/02/17 20:00 97.2 89 22 96/51 100 Mechanical Ventilator 30 07/02/17 20:00 88 07/02/17 20:00 30 07/02/17 19:18 92 28 30 07/02/17 19:00 90 26 98/49 100 Mechanical Ventilator 30 07/02/17 18:00 92 21 106/54 100 Mechanical Ventilator 30 07/02/17 17:00 89 26 94/52 100 Mechanical Ventilator 30 07/02/17 16:56 91 24 30 07/02/17 16:00 30 07/02/17 16:00 92 07/02/17 16:00 97.5 92 29 111/56 100 Mechanical Ventilator 30 07/02/17 15:00 91 24 108/56 100 Mechanical Ventilator 30 07/02/17 14:57 91 25 30 07/02/17 14:00 95 23 118/76 100 Mechanical Ventilator 30 07/02/17 13:00 95 34 116/56 100 Mechanical Ventilator 30 07/02/17 12:51 94 27 30 07/02/17 12:00 30 07/02/17 12:00 93 07/02/17 12:00 98.4 93 28 113/56 100 Mechanical Ventilator 30 07/02/17 11:00 94 30 111/54 100 Mechanical Ventilator 30 07/02/17 10:48 98 33 30 07/02/17 10:00 96 34 113/54 100 Mechanical Ventilator 30 07/02/17 09:20 92 28 30 07/02/17 09:15 100 07/02/17 09:13 90 22 30 07/02/17 09:00 92 30 104/53 100 Mechanical Ventilator 30 Intake and Output 07/02/17 07/03/17 19:00 07:00 Intake Total 655 ml 700 ml Output Total 0 ml 0 ml Balance 655 ml 700 ml Intake Free Water 100 ml IV Total 55 ml Tube Feeding 600 ml 600 ml Output Urine Total 0 ml 0 ml # Bowel Movements 2 3 Laboratory Tests 07/02/17 12:30: White Blood Count 9.4, Red Blood Count 3.29L, Hemoglobin 9.0L, Hematocrit 29.4L , Mean Corpuscular Volume 89, Mean Corpuscular Hemoglobin 27.5, Mean Corpuscular Hemoglobin Concent 30.8L, Red Cell Distribution Width 19.2H, Platelet Count 312, Mean Platelet Volume 6.5, Neutrophils (%) (Auto) 71.5, Lymphocytes (%) (Auto) 16.1L, Monocytes (%) (Auto) 10.5H, Eosinophils (%) (Auto ) 1.3, Basophils (%) (Auto) 0.5 07/03/17 04:30: White Blood Count 7.7, Red Blood Count 3.02L, Hemoglobin 8.6L, Hematocrit 27.1L , Mean Corpuscular Volume 90, Mean Corpuscular Hemoglobin 28.6, Mean Corpuscular Hemoglobin Concent 31.9L, Red Cell Distribution Width 19.2H, Platelet Count 337, Mean Platelet Volume 6.3L, Neutrophils (%) (Auto) 71.9, Lymphocytes (%) (Auto) 17.8L, Monocytes (%) (Auto) 8.4, Eosinophils (%) (Auto) 1.3, Basophils (%) (Auto) 0.6, Sodium Level 140, Potassium Level 4.2, Chloride Level 107, Carbon Dioxide Level 22, Anion Gap 11, Blood Urea Nitrogen 51H, Creatinine 4.3H, Estimat Glomerular Filtration Rate , Glucose Level 110H, Calcium Level 7.1L Height (Feet): 5 Height (Inches): 10.00 Weight (Pounds): 173 General Appearance: lethargic EENT: normal ENT inspection Neck: normal alignment Cardiovascular: regular rhythm, tachycardia Respiratory/Chest: rhonchi - bilaterally Abdomen: non tender Extremities: trace edema Neurologic: disoriented LEONORA HUI Jul 03, 2017 08:58
[2017-07-03] MEDS: Aspirin Baby 81mg NG SCH (09:32)
[2017-07-03] MEDS: Heparin 5000 units/ml inj SUBQ SCH ×2 (09:34→20:40)
--- NOTE | 2017-07-03 10:17 | Pulmonology Progress Note ---
Assessment/Plan Assessment/Plan 1. Respiratory failure. 2. Sepsis with shock. 3. Possible dialysis catheter sepsis 4. Stroke with dementia and right hemiparesis. 5. Diabetes. pressor, titrate map greater than 65 mmhg still on vent, not tolerating weaning nebs and suction abx per id wound care unable to view cxr and no report available watch io, may need thoracentesis TF and asp risk disc w RN pt is DNR Subjective Interval Events: none Constitutional: Reports: no symptoms HEENT: Repors: no symptoms Respiratory: Reports: no symptoms Cardiovascular: Reports: no symptoms Allergies: Coded Allergies: No Known Allergies (Unverified , 06/18/17) Objective Last 24 Hour Vital Signs Date Time Temp Pulse Resp B/P (MAP) Pulse Ox O2 Delivery O2 Flow Rate FiO2 07/03/17 10:00 94 27 126/62 100 Mechanical Ventilator 30 07/03/17 09:51 92 29 Mechanical Ventilator 30 07/03/17 09:00 30 07/03/17 09:00 96 29 115/60 100 Mechanical Ventilator 30 07/03/17 08:59 92 31 30 07/03/17 08:58 100 07/03/17 08:00 98.0 93 31 103/56 100 Mechanical Ventilator 30 07/03/17 08:00 98 07/03/17 07:30 30 07/03/17 07:00 93 24 120/78 100 Mechanical Ventilator 30 07/03/17 07:00 97 25 30 07/03/17 06:00 92 24 118/70 100 Mechanical Ventilator 30 07/03/17 05:29 92 31 30 07/03/17 05:00 92 24 107/56 100 Mechanical Ventilator 30 07/03/17 04:00 94 07/03/17 04:00 97.5 91 28 109/56 100 Mechanical Ventilator 30 07/03/17 04:00 30 07/03/17 03:28 98 33 30 07/03/17 03:00 94 24 110/55 100 Mechanical Ventilator 30 07/03/17 02:00 92 24 99/55 100 Mechanical Ventilator 30 07/03/17 01:21 91 28 30 07/03/17 01:00 89 24 95/53 100 Mechanical Ventilator 30 07/03/17 00:00 30 07/03/17 00:00 97.5 89 24 111/56 100 Mechanical Ventilator 30 07/02/17 23:04 87 24 30 1/7/18 23:00 88 26 107/57 100 Mechanical Ventilator 30 07/02/17 22:00 87 26 104/55 100 Mechanical Ventilator 30 07/02/17 21:00 88 26 98/50 100 Mechanical Ventilator 30 07/02/17 20:55 95 26 30 07/02/17 20:00 97.2 89 22 96/51 100 Mechanical Ventilator 30 07/02/17 20:00 88 07/02/17 20:00 30 07/02/17 19:18 92 28 30 07/02/17 19:00 90 26 98/49 100 Mechanical Ventilator 30 07/02/17 18:00 92 21 106/54 100 Mechanical Ventilator 30 07/02/17 17:00 89 26 94/52 100 Mechanical Ventilator 30 07/02/17 16:56 91 24 30 07/02/17 16:00 30 07/02/17 16:00 92 07/02/17 16:00 97.5 92 29 111/56 100 Mechanical Ventilator 30 07/02/17 15:00 91 24 108/56 100 Mechanical Ventilator 30 07/02/17 14:57 91 25 30 07/02/17 14:00 95 23 118/76 100 Mechanical Ventilator 30 07/02/17 13:00 95 34 116/56 100 Mechanical Ventilator 30 07/02/17 12:51 94 27 30 07/02/17 12:00 30 07/02/17 12:00 93 07/02/17 12:00 98.4 93 28 113/56 100 Mechanical Ventilator 30 07/02/17 11:00 94 30 111/54 100 Mechanical Ventilator 30 07/02/17 10:48 98 33 30 Intake and Output 07/02/17 07/03/17 19:00 07:00 Intake Total 655 ml 700 ml Output Total 0 ml 0 ml Balance 655 ml 700 ml Intake Free Water 100 ml IV Total 55 ml Tube Feeding 600 ml 600 ml Output Urine Total 0 ml 0 ml # Bowel Movements 2 3 General Appearance: no acute distress HEENT: normocephalic Respiratory/Chest: chest wall non-tender, lungs clear Cardiovascular: normal peripheral pulses, normal rate Laboratory Tests 07/02/17 12:30: White Blood Count 9.4, Red Blood Count 3.29L, Hemoglobin 9.0L, Hematocrit 29.4L , Mean Corpuscular Volume 89, Mean Corpuscular Hemoglobin 27.5, Mean Corpuscular Hemoglobin Concent 30.8L, Red Cell Distribution Width 19.2H, Platelet Count 312, Mean Platelet Volume 6.5, Neutrophils (%) (Auto) 71.5, Lymphocytes (%) (Auto) 16.1L, Monocytes (%) (Auto) 10.5H, Eosinophils (%) (Auto ) 1.3, Basophils (%) (Auto) 0.5 07/03/17 04:30: White Blood Count 7.7, Red Blood Count 3.02L, Hemoglobin 8.6L, Hematocrit 27.1L , Mean Corpuscular Volume 90, Mean Corpuscular Hemoglobin 28.6, Mean Corpuscular Hemoglobin Concent 31.9L, Red Cell Distribution Width 19.2H, Platelet Count 337, Mean Platelet Volume 6.3L, Neutrophils (%) (Auto) 71.9, Lymphocytes (%) (Auto) 17.8L, Monocytes (%) (Auto) 8.4, Eosinophils (%) (Auto) 1.3, Basophils (%) (Auto) 0.6, Sodium Level 140, Potassium Level 4.2, Chloride Level 107, Carbon Dioxide Level 22, Anion Gap 11, Blood Urea Nitrogen 51H, Creatinine 4.3H, Estimat Glomerular Filtration Rate , Glucose Level 110H, Calcium Level 7.1L Current Medications Medications (Trade) Dose Ordered Sig/Jaime Route PRN Reason Start Time Stop Time Status Last Admin Dose Admin Acetaminophen (Tylenol) 650 mg Q4H PRN RECTAL Prn Headache/Temp > 101 06/18/17 21:00 07/18/17 20:59 06/20/17 12:42 Aspirin (ASA) 81 mg DAILY NG 06/19/17 19:00 07/19/17 18:59 07/03/17 09:32 Cefepime HCl 1 gm/ Dextrose 55 ml @ 110 mls/hr Q24H IVPB 06/28/17 11:00 07/04/17 23:59 07/02/17 11:25 Chlorhexidine Gluconate (Kati-Hex 2%) 1 applic Q24H TOPIC 06/19/17 20:00 07/19/17 19:59 07/02/17 20:00 Dextrose (Dextrose 50%) STAT PRN IV Hypoglycemia 06/19/17 13:00 07/19/17 12:59 06/23/17 05:35 Epoetin Russ (Procrit (for ESRD on dialysis)) 5,000 units MON-MON-MON SUBQ 06/21/17 21:00 07/21/17 20:59 06/30/17 21:38 Heparin Sodium (Porcine) (Heparin 5000 units/ml) 5,000 units EVERY 12 HOURS SUBQ 06/18/17 21:00 07/18/17 20:59 07/03/17 09:34 Insulin Aspart (NovoLOG) EVERY 6 HOURS SUBQ 06/19/17 18:00 07/19/17 17:59 07/03/17 06:44 Lansoprazole (Prevacid) 30 mg DAILY GT 06/19/17 09:00 07/19/17 08:59 07/03/17 09:31 Sodium Chloride 1,000 ml @ 500 mls/hr Q2H PRN IVLG sbp<90 during hd 06/27/17 11:09 07/27/17 11:08 Vancomycin HCl (Vanco rx to dose) 1 ea DAILY PRN MISC Per rx protocol 06/19/17 02:45 07/19/17 02:44 Steven Olmos MD Jul 03, 2017 10:17
[2017-07-03] MEDS: Cefepime HCl 1 GM in D5W 55 ML IVPB SCH (11:24)
--- NOTE | 2017-07-03 14:33 | Wound Nurse Progress Note ---
Wound RN Progress Note Wound Consult Reassessment- no further deterioration present to admitted wounds , continue wound care as recommended.effective. no new wounds present #1 Sacrococcygeal unstageable extending to left and right buttock pressure ulcer - - site remains as unstageable, continue wound care as recommended no further deterioration present. 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 #3 Right heel resolving unstageable pressure ulcer- no further deterioration present resolving noted scar tissue appearing to site, still present with thick dry brown. continue to monitor offload area keep clean and dry #4 Perineal Partial thickness erosion- noted good progress decrease in erosion noted, continue to keep clean and dry. #5 Left 1st metatarsal DTI pressure ulcer- remains as DTI. intact no change dry intact, continue to keep dry #6 Right lateral mid foot DTI pressure ulcer-remains as DTI.intact.no change dry intact, continue to keep dry #7 dry flaky skin on upper buttock by wound,skin intact dry - monitor for any further change of condition to skin. Recommendation -Local wound care per protocol -Keep clean and dry -Turn and reposition -Optimize nutrition -Low air loss mattress -Offload both heels -Heel protector on both heels -Avoid shear and friction. -provide moisturizer to dry skin. -Assess and f/u accordingly for any changes of condition to skin noted ALEJANDRO FLETCHER Jul 03, 2017 14:33
--- NOTE | 2017-07-03 15:18 | Infectious Diseases Prog Note ---
Assessment/Plan Assessment/Plan A 1. MRSA sepsis s/p catheter removal 2. septic shock 3. respiratory failure 4. renal failure, ESRD 5. staph aureus , Enterobacter pneumonia P 1. continue vancomycin iv, continue Cefepime Subjective ROS Limited/Unobtainable: Yes Allergies: Coded Allergies: No Known Allergies (Unverified , 06/18/17) Objective Vital Signs Last 24 Hour Vital Signs Date Time Temp Pulse Resp B/P (MAP) Pulse Ox O2 Delivery O2 Flow Rate FiO2 07/03/17 15:00 97 28 30 07/03/17 14:00 95 27 116/67 100 Mechanical Ventilator 30 07/03/17 13:00 94 27 110/60 100 Mechanical Ventilator 30 07/03/17 12:40 98 29 30 07/03/17 12:00 98.5 91 27 120/62 100 Mechanical Ventilator 30 07/03/17 12:00 91 07/03/17 11:15 93 31 30 07/03/17 11:00 96 27 108/60 100 Mechanical Ventilator 30 07/03/17 10:00 94 27 126/62 100 Mechanical Ventilator 30 07/03/17 09:51 92 29 Mechanical Ventilator 30 07/03/17 09:00 30 07/03/17 09:00 96 29 115/60 100 Mechanical Ventilator 30 07/03/17 08:59 92 31 30 07/03/17 08:58 100 07/03/17 08:00 98.0 93 31 103/56 100 Mechanical Ventilator 30 07/03/17 08:00 98 07/03/17 07:30 30 07/03/17 07:00 93 24 120/78 100 Mechanical Ventilator 30 07/03/17 07:00 97 25 30 07/03/17 06:00 92 24 118/70 100 Mechanical Ventilator 30 07/03/17 05:29 92 31 30 07/03/17 05:00 92 24 107/56 100 Mechanical Ventilator 30 07/03/17 04:00 94 07/03/17 04:00 97.5 91 28 109/56 100 Mechanical Ventilator 30 07/03/17 04:00 30 07/03/17 03:28 98 33 30 07/03/17 03:00 94 24 110/55 100 Mechanical Ventilator 30 07/03/17 02:00 92 24 99/55 100 Mechanical Ventilator 30 07/03/17 01:21 91 28 30 07/03/17 01:00 89 24 95/53 100 Mechanical Ventilator 30 07/03/17 00:00 30 07/03/17 00:00 97.5 89 24 111/56 100 Mechanical Ventilator 30 07/02/17 23:04 87 24 30 07/02/17 23:00 88 26 107/57 100 Mechanical Ventilator 30 07/02/17 22:00 87 26 104/55 100 Mechanical Ventilator 30 07/02/17 21:00 88 26 98/50 100 Mechanical Ventilator 30 07/02/17 20:55 95 26 30 07/02/17 20:00 97.2 89 22 96/51 100 Mechanical Ventilator 30 07/02/17 20:00 88 07/02/17 20:00 30 07/02/17 19:18 92 28 30 07/02/17 19:00 90 26 98/49 100 Mechanical Ventilator 30 07/02/17 18:00 92 21 106/54 100 Mechanical Ventilator 30 07/02/17 17:00 89 26 94/52 100 Mechanical Ventilator 30 07/02/17 16:56 91 24 30 07/02/17 16:00 30 07/02/17 16:00 92 07/02/17 16:00 97.5 92 29 111/56 100 Mechanical Ventilator 30 Height (Feet): 5 Height (Inches): 10.00 Weight (Pounds): 173 HEENT: other - orally intubated Respiratory/Chest: lungs clear, respiratory distress, other - on ventilator Cardiovascular: normal rate, other - left IJ HD line Abdomen: soft, non tender, other - orogastric tube feeding Extremities: no edema Neurologic/Psychiatric: other - opens eyes Laboratory Tests Test 07/03/17 04:30 White Blood Count 7.7 K/UL (4.8-10.8) Red Blood Count 3.02 M/UL (4.70-6.10) L Hemoglobin 8.6 G/DL (14.2-18.0) L Hematocrit 27.1 % (42.0-52.0) L Mean Corpuscular Volume 90 FL (80-99) Mean Corpuscular Hemoglobin 28.6 PG (27.0-31.0) Mean Corpuscular Hemoglobin Concent 31.9 G/DL (32.0-36.0) L Red Cell Distribution Width 19.2 % (11.6-14.8) H Platelet Count 337 K/UL (150-450) Mean Platelet Volume 6.3 FL (6.5-10.1) L Neutrophils (%) (Auto) 71.9 % (45.0-75.0) Lymphocytes (%) (Auto) 17.8 % (20.0-45.0) L Monocytes (%) (Auto) 8.4 % (1.0-10.0) Eosinophils (%) (Auto) 1.3 % (0.0-3.0) Basophils (%) (Auto) 0.6 % (0.0-2.0) Sodium Level 140 MMOL/L (136-145) Potassium Level 4.2 MMOL/L (3.5-5.1) Chloride Level 107 MMOL/L (98-107) Carbon Dioxide Level 22 MMOL/L (21-32) Anion Gap 11 mmol/L (5-15) Blood Urea Nitrogen 51 mg/dL (7-18) H Creatinine 4.3 MG/DL (0.55-1.30) H Estimat Glomerular Filtration Rate mL/min (>60) Glucose Level 110 MG/DL (74-106) H Calcium Level 7.1 MG/DL (8.5-10.1) L Current Medications Medications (Trade) Dose Ordered Sig/Jaime Route PRN Reason Start Time Stop Time Status Last Admin Dose Admin Acetaminophen (Tylenol) 650 mg Q4H PRN RECTAL Prn Headache/Temp > 101 06/18/17 21:00 07/18/17 20:59 06/20/17 12:42 Aspirin (ASA) 81 mg DAILY NG 06/19/17 19:00 07/19/17 18:59 07/03/17 09:32 Cefepime HCl 1 gm/ Dextrose 55 ml @ 110 mls/hr Q24H IVPB 06/28/17 11:00 07/04/17 23:59 07/03/17 11:24 Chlorhexidine Gluconate (Kati-Hex 2%) 1 applic Q24H TOPIC 06/19/17 20:00 07/19/17 19:59 07/02/17 20:00 Dextrose (Dextrose 50%) STAT PRN IV Hypoglycemia 06/19/17 13:00 07/19/17 12:59 06/23/17 05:35 Epoetin Russ (Procrit (for ESRD on dialysis)) 5,000 units MON-WED-MON SUBQ 06/21/17 21:00 07/21/17 20:59 06/30/17 21:38 Heparin Sodium (Porcine) (Heparin 5000 units/ml) 5,000 units EVERY 12 HOURS SUBQ 06/18/17 21:00 07/18/17 20:59 07/03/17 09:34 Insulin Aspart (NovoLOG) EVERY 6 HOURS SUBQ 06/19/17 18:00 07/19/17 17:59 07/03/17 12:13 Lansoprazole (Prevacid) 30 mg DAILY GT 06/19/17 09:00 07/19/17 08:59 07/03/17 09:31 Sodium Chloride 1,000 ml @ 500 mls/hr Q2H PRN IVLG sbp<90 during hd 06/27/17 11:09 07/27/17 11:08 Vancomycin HCl (Vanco rx to dose) 1 ea DAILY PRN MISC Per rx protocol 06/19/17 02:45 07/19/17 02:44 ZAIRA ROBLES Jul 03, 2017 15:18
[2017-07-03] MEDS: Dyna-Hex 2% Top Sol 2oz TOPIC SCH (19:49)
[2017-07-03] MEDS: Epogen (for ESRD on dialysis) SUBQ SCH (20:55)
[2017-07-04] VITALS (24 sets, daily range): BP systolic 87–137; BP diastolic 44–69
[2017-07-04] MEDS: NovoLOG Insulin Flexpen SUBQ SCH ×5 (00:21→23:53)
[2017-07-04] MEDS: Aspirin Baby 81mg NG SCH (08:23)
[2017-07-04] MEDS: Heparin 5000 units/ml inj SUBQ SCH ×2 (08:25→21:44)
--- NOTE | 2017-07-04 08:55 | General Progress Note ---
Assessment/Plan Problem List: (1) Catheter-related bloodstream infection ICD Codes: T80.211A - Bloodstream infection due to central venous catheter, initial encounter SNOMED: 289067510 (2) Renal failure ICD Codes: N19 - Unspecified kidney failure SNOMED: 60360414 (3) Septic shock ICD Codes: A41.9 - Sepsis, unspecified organism; R65.21 - Severe sepsis with septic shock SNOMED: 98242451 (4) Respiratory failure ICD Codes: J96.90 - Respiratory failure, unspecified, unspecified whether with hypoxia or hypercapnia SNOMED: 032095241 (5) Malnutrition of moderate degree ICD Codes: E44.0 - Moderate protein-calorie malnutrition SNOMED: 526464321 (6) End-stage renal disease ICD Codes: N18.6 - End stage renal disease SNOMED: 89567790 (7) Healthcare-associated pneumonia ICD Codes: J18.9 - Pneumonia, unspecified organism SNOMED: 904950486 Status: stable, progressing Assessment/Plan cont iv abx HD as tolerated. wean vent- more alert resp rx feeds dvt/stress ulcer prophyalxi monitor h/h transfuse as needed epo/iron critical and guarded dnr Subjective ROS Limited/Unobtainable: No Constitutional: Reports: malaise, weakness HEENT: Reports: no symptoms Cardiovascular: Reports: no symptoms Respiratory: Reports: shortness of breath Gastrointestinal/Abdominal: Reports: difficulty swallowing Genitourinary: Reports: no symptoms Neurologic/Psychiatric: Reports: pre-existing deficit Endocrine: Reports: no symptoms Hematologic/Lymphatic: Reports: anemia Allergies: Coded Allergies: No Known Allergies (Unverified , 06/18/17) All Systems: reviewed and negative except above Subjective remains intubated. much more alert. tracks. no secretion or congestion. tolerating simv since last night Objective Last 24 Hour Vital Signs Date Time Temp Pulse Resp B/P (MAP) Pulse Ox O2 Delivery O2 Flow Rate FiO2 07/04/17 08:03 30 07/04/17 08:00 30 07/04/17 07:27 104 32 30 07/04/17 06:00 106 28 92/56 100 Mechanical Ventilator 30 07/04/17 05:27 91 32 30 07/04/17 05:00 101 23 116/56 100 Mechanical Ventilator 30 07/04/17 04:46 Mechanical Ventilator 30 07/04/17 04:00 98.3 96 32 97/51 100 Mechanical Ventilator 30 07/04/17 04:00 96 07/04/17 04:00 30 07/04/17 03:24 93 20 30 07/04/17 03:00 104 23 137/69 100 Mechanical Ventilator 30 07/04/17 02:00 101 25 122/59 100 Mechanical Ventilator 30 07/04/17 01:24 91 36 30 07/04/17 01:00 94 28 107/57 100 Mechanical Ventilator 30 07/04/17 00:00 93 07/04/17 00:00 30 07/04/17 00:00 98.7 93 27 95/48 100 Mechanical Ventilator 30 07/03/17 23:24 95 31 30 07/03/17 23:00 96 34 108/58 100 Mechanical Ventilator 30 07/03/17 22:00 99 30 122/56 100 Mechanical Ventilator 30 07/03/17 21:00 98 35 30 07/03/17 21:00 93 29 104/52 100 Mechanical Ventilator 30 07/03/17 20:00 90 07/03/17 20:00 30 07/03/17 20:00 98.2 90 24 100/52 100 Mechanical Ventilator 30 07/03/17 19:02 97 37 30 07/03/17 19:00 95 28 108/58 100 Mechanical Ventilator 30 07/03/17 18:00 90 28 109/55 100 Mechanical Ventilator 30 07/03/17 17:10 90 25 30 07/03/17 17:00 95 28 95/45 100 Mechanical Ventilator 30 07/03/17 16:00 90 07/03/17 16:00 98.4 90 29 109/51 100 Mechanical Ventilator 30 07/03/17 16:00 30 07/03/17 15:00 92 28 110/52 100 Mechanical Ventilator 30 07/03/17 15:00 97 28 30 07/03/17 14:00 95 27 116/67 100 Mechanical Ventilator 30 07/03/17 13:00 94 27 110/60 100 Mechanical Ventilator 30 07/03/17 12:40 98 29 30 07/03/17 12:00 98.5 91 27 120/62 100 Mechanical Ventilator 30 07/03/17 12:00 91 07/03/17 11:15 93 31 30 07/03/17 11:00 96 27 108/60 100 Mechanical Ventilator 30 07/03/17 10:00 94 27 126/62 100 Mechanical Ventilator 30 07/03/17 09:51 92 29 Mechanical Ventilator 30 07/03/17 09:00 30 07/03/17 09:00 96 29 115/60 100 Mechanical Ventilator 30 07/03/17 08:59 92 31 30 07/03/17 08:58 100 Intake and Output 07/03/17 07/04/17 19:00 07:00 Intake Total 790 ml 530 ml Output Total 0 ml 0 ml Balance 790 ml 530 ml Intake Free Water 80 ml 80 ml IV Total 110 ml Tube Feeding 600 ml 450 ml Output Urine Total 0 ml 0 ml # Bowel Movements 3 2 Height (Feet): 5 Height (Inches): 10.00 Weight (Pounds): 174 Objective General Appearance: WD/WN, lethargic, confused Neck: supple Cardiovascular: regular rhythm Respiratory/Chest: chest wall non-tender, lungs clear, normal breath sounds, no respiratory distress Abdomen: normal bowel sounds, non tender, soft, no organomegaly, no mass Edema: no edema noted Arm (L), no edema noted Arm (R), no edema noted Leg (L), no edema noted Leg (R), no edema noted Pedal (L), no edema noted Pedal (R), no edema noted Generalized Neurologic: more alert, aphasia KEENA BRANDT Jul 04, 2017 08:55
--- NOTE | 2017-07-04 10:12 | Pulmonology Progress Note ---
Assessment/Plan Assessment/Plan 1. Respiratory failure. 2. Sepsis with shock. 3. Stroke with dementia and right hemiparesis. 4. Diabetes. pressor, titrate map greater than 65 mmhg still on vent, continue weaning nebs and suction abx per id wound care will re-check CXR watch io, may need thoracentesis; has left pleural effusion TF and asp risk disc w RN pt is DNR Subjective Interval Events: Weaning in progress Constitutional: Reports: no symptoms HEENT: Repors: no symptoms Respiratory: Reports: no symptoms Cardiovascular: Reports: no symptoms Allergies: Coded Allergies: No Known Allergies (Unverified , 06/18/17) Objective Last 24 Hour Vital Signs Date Time Temp Pulse Resp B/P (MAP) Pulse Ox O2 Delivery O2 Flow Rate FiO2 07/04/17 10:00 94 26 87/45 95 Mechanical Ventilator 30 07/04/17 09:28 103 28 30 07/04/17 09:27 100 07/04/17 09:00 102 29 103/54 100 Mechanical Ventilator 30 07/04/17 08:03 30 07/04/17 08:00 97.8 101 30 92/50 100 Mechanical Ventilator 30 07/04/17 08:00 30 07/04/17 07:27 104 32 30 07/04/17 07:00 109 28 92/56 100 Mechanical Ventilator 30 07/04/17 06:00 106 28 92/56 100 Mechanical Ventilator 30 07/04/17 05:27 91 32 30 07/04/17 05:00 101 23 116/56 100 Mechanical Ventilator 30 07/04/17 04:46 Mechanical Ventilator 30 07/04/17 04:00 98.3 96 32 97/51 100 Mechanical Ventilator 30 07/04/17 04:00 96 07/04/17 04:00 30 07/04/17 03:24 93 20 30 07/04/17 03:00 104 23 137/69 100 Mechanical Ventilator 30 07/04/17 02:00 101 25 122/59 100 Mechanical Ventilator 30 07/04/17 01:24 91 36 30 07/04/17 01:00 94 28 107/57 100 Mechanical Ventilator 30 07/04/17 00:00 93 07/04/17 00:00 30 07/04/17 00:00 98.7 93 27 95/48 100 Mechanical Ventilator 30 07/03/17 23:24 95 31 30 07/03/17 23:00 96 34 108/58 100 Mechanical Ventilator 30 07/03/17 22:00 99 30 122/56 100 Mechanical Ventilator 30 07/03/17 21:00 98 35 30 07/03/17 21:00 93 29 104/52 100 Mechanical Ventilator 30 07/03/17 20:00 90 07/03/17 20:00 30 07/03/17 20:00 98.2 90 24 100/52 100 Mechanical Ventilator 30 07/03/17 19:02 97 37 30 07/03/17 19:00 95 28 108/58 100 Mechanical Ventilator 30 07/03/17 18:00 90 28 109/55 100 Mechanical Ventilator 30 07/03/17 17:10 90 25 30 07/03/17 17:00 95 28 95/45 100 Mechanical Ventilator 30 07/03/17 16:00 90 07/03/17 16:00 98.4 90 29 109/51 100 Mechanical Ventilator 30 07/03/17 16:00 30 07/03/17 15:00 92 28 110/52 100 Mechanical Ventilator 30 07/03/17 15:00 97 28 30 07/03/17 14:00 95 27 116/67 100 Mechanical Ventilator 30 07/03/17 13:00 94 27 110/60 100 Mechanical Ventilator 30 07/03/17 12:40 98 29 30 07/03/17 12:00 98.5 91 27 120/62 100 Mechanical Ventilator 30 07/03/17 12:00 91 07/03/17 11:15 93 31 30 07/03/17 11:00 96 27 108/60 100 Mechanical Ventilator 30 Intake and Output 07/03/17 07/04/17 19:00 07:00 Intake Total 790 ml 530 ml Output Total 0 ml 0 ml Balance 790 ml 530 ml Intake Free Water 80 ml 80 ml IV Total 110 ml Tube Feeding 600 ml 450 ml Output Urine Total 0 ml 0 ml # Bowel Movements 3 2 General Appearance: no acute distress HEENT: normocephalic Respiratory/Chest: chest wall non-tender, lungs clear Cardiovascular: normal peripheral pulses, normal rate Current Medications Medications (Trade) Dose Ordered Sig/Jaime Route PRN Reason Start Time Stop Time Status Last Admin Dose Admin Acetaminophen (Tylenol) 650 mg Q4H PRN RECTAL Prn Headache/Temp > 101 06/18/17 21:00 07/18/17 20:59 06/20/17 12:42 Aspirin (ASA) 81 mg DAILY NG 06/19/17 19:00 07/19/17 18:59 07/04/17 08:23 Cefepime HCl 1 gm/ Dextrose 55 ml @ 110 mls/hr Q24H IVPB 06/28/17 11:00 07/11/17 10:59 07/03/17 11:24 Chlorhexidine Gluconate (Kati-Hex 2%) 1 applic Q24H TOPIC 06/19/17 20:00 07/19/17 19:59 07/03/17 19:49 Dextrose (Dextrose 50%) STAT PRN IV Hypoglycemia 06/19/17 13:00 07/19/17 12:59 06/23/17 05:35 Epoetin Russ (Procrit (for ESRD on dialysis)) 5,000 units MON-MON-MON SUBQ 06/21/17 21:00 07/21/17 20:59 07/03/17 20:55 Heparin Sodium (Porcine) (Heparin 5000 units/ml) 5,000 units EVERY 12 HOURS SUBQ 06/18/17 21:00 07/18/17 20:59 07/04/17 08:25 Insulin Aspart (NovoLOG) EVERY 6 HOURS SUBQ 06/19/17 18:00 07/19/17 17:59 07/04/17 00:21 Lansoprazole (Prevacid) 30 mg DAILY GT 06/19/17 09:00 07/19/17 08:59 07/04/17 08:23 Sodium Chloride 1,000 ml @ 500 mls/hr Q2H PRN IVLG sbp<90 during hd 06/27/17 11:09 07/27/17 11:08 Vancomycin HCl (Vanco rx to dose) 1 ea DAILY PRN MISC Per rx protocol 06/19/17 02:45 07/19/17 02:44 Steven Olmos MD Jul 04, 2017 10:12
[2017-07-04] MEDS: Cefepime HCl 1 GM in D5W 55 ML IVPB SCH (10:38)
--- NOTE | 2017-07-04 12:31 | Infectious Diseases Prog Note ---
"Assessment/Plan Assessment/Plan antibiotics : vancomycin iv, cefepime A 1. MRSA sepsis s/p catheter removal 2. septic shock 3. respiratory failure 4. renal failure 5. MRSA | enterobacter pneumonia 6. leucocytosis improving P 1. continue vancomycin iv, cefepime 2. will follow up cultures Subjective ROS Limited/Unobtainable: Yes Allergies: Coded Allergies: No Known Allergies (Unverified , 06/18/17) Objective Vital Signs Last 24 Hour Vital Signs Date Time Temp Pulse Resp B/P (MAP) Pulse Ox O2 Delivery O2 Flow Rate FiO2 07/04/17 12:00 105 27 98/51 100 Mechanical Ventilator 30 07/04/17 12:00 30 07/04/17 11:16 106 29 30 07/04/17 11:00 109 37 131/64 100 Mechanical Ventilator 30 07/04/17 10:00 94 26 87/45 95 Mechanical Ventilator 30 07/04/17 09:28 103 28 30 07/04/17 09:27 100 07/04/17 09:00 102 29 103/54 100 Mechanical Ventilator 30 07/04/17 08:03 30 07/04/17 08:00 97.8 101 30 92/50 100 Mechanical Ventilator 30 07/04/17 08:00 30 07/04/17 07:48 108 07/04/17 07:27 104 32 30 07/04/17 07:00 109 28 92/56 100 Mechanical Ventilator 30 07/04/17 06:00 106 28 92/56 100 Mechanical Ventilator 30 07/04/17 05:27 91 32 30 07/04/17 05:00 101 23 116/56 100 Mechanical Ventilator 30 07/04/17 04:46 Mechanical Ventilator 30 07/04/17 04:00 98.3 96 32 97/51 100 Mechanical Ventilator 30 07/04/17 04:00 96 07/04/17 04:00 30 07/04/17 03:24 93 20 30 07/04/17 03:00 104 23 137/69 100 Mechanical Ventilator 30 07/04/17 02:00 101 25 122/59 100 Mechanical Ventilator 30 07/04/17 01:24 91 36 30 07/04/17 01:00 94 28 107/57 100 Mechanical Ventilator 30 07/04/17 00:00 93 07/04/17 00:00 30 07/04/17 00:00 98.7 93 27 95/48 100 Mechanical Ventilator 30 07/03/17 23:24 95 31 30 07/03/17 23:00 96 34 108/58 100 Mechanical Ventilator 30 07/03/17 22:00 99 30 122/56 100 Mechanical Ventilator 30 07/03/17 21:00 98 35 30 07/03/17 21:00 93 29 104/52 100 Mechanical Ventilator 30 07/03/17 20:00 90 07/03/17 20:00 30 07/03/17 20:00 98.2 90 24 100/52 100 Mechanical Ventilator 30 07/03/17 19:02 97 37 30 07/03/17 19:00 95 28 108/58 100 Mechanical Ventilator 30 07/03/17 18:00 90 28 109/55 100 Mechanical Ventilator 30 07/03/17 17:10 90 25 30 07/03/17 17:00 95 28 95/45 100 Mechanical Ventilator 30 07/03/17 16:00 90 07/03/17 16:00 98.4 90 29 109/51 100 Mechanical Ventilator 30 07/03/17 16:00 30 07/03/17 15:00 92 28 110/52 100 Mechanical Ventilator 30 07/03/17 15:00 97 28 30 07/03/17 14:00 95 27 116/67 100 Mechanical Ventilator 30 07/03/17 13:00 94 27 110/60 100 Mechanical Ventilator 30 07/03/17 12:40 98 29 30 Height (Feet): 5 Height (Inches): 10.00 Weight (Pounds): 174 HEENT: other - intubated Respiratory/Chest: lungs clear Cardiovascular: normal rate, regular rhythm, no gallop/murmur Abdomen: soft, non tender Extremities: no edema, other - left IJ catheter ARTIS SANTIAGO Jul 04, 2017 12:31"
--- NOTE | 2017-07-04 13:03 | Diagnostic Imaging Report ---
Indication: Abnormal breath sounds Comparison: 07/02/2017 A single view chest radiograph was obtained. Findings: Hazy basilar opacities demonstrated likely small pleural effusions especially on the left. Heart size is stable. Tubes and lines are stable. IMPRESSION: No change compared to the previous exam 2 days earlier
--- NOTE | 2017-07-04 16:00 | Diagnostic Imaging Report ---
Indication: Cough Technique: XRAY Chest 1v Comparison: 06/26/2017 Findings: Endotracheal tube, nasogastric tube and left internal jugular Hamilton catheter are again noted. There is slightly increased subsegmental atelectasis in the right base. There is again hazy appearance in the left base. Osseous structures are stable. Impression: Slight increased subsegmental atelectasis of the right base. Otherwise stable chest.
--- NOTE | 2017-07-04 16:00 | Diagnostic Imaging Report ---
Indication: Nasogastric tube placement Technique: XRAY Abdomen 1v Comparison: None Findings: Nasogastric tube courses down the right chest. There is a partially visualized left-sided central catheter with tip in the SVC. Gas-filled small bowel loops are seen in the partially visualized upper abdomen. There is hazy appearance in the partially visualized lung bases could represent pleural fluid and/or consolidation. Calcified granulomas are suggested in the right base. Impression: Nasogastric tube tip projecting over the right chest probably within right-sided airway. Nasogastric tube should be removed and repositioned. Other findings as above. The above report is concordant with preliminary reading by [facility].
[2017-07-04] MEDS ORDERED: NS 500ML ONE (17:12)
[2017-07-04] MEDS ORDERED: Sterile Water Irrig 1000ml IRRIG ONE (17:12)
--- NOTE | 2017-07-04 19:18 | Nephrology Progress Note ---
Assessment/Plan Problem List: (1) Healthcare-associated pneumonia (2) Malnutrition of moderate degree (3) End-stage renal disease (4) Respiratory failure (5) Septic shock Plan , meds reviewed for eskd,hypotension, mrsa sepsis, he isunable to sign as critically ill, hd via new cath 06/27 , flow variable observe hd 06/29,remains on pressors--off 15 am, hd 07/01 +07/04 still low-nl bp , unresponsive, poor prognosis hd 07/04 Subjective ROS Limited/Unobtainable: Yes Objective Objective Last 24 Hour Vital Signs Date Time Temp Pulse Resp B/P (MAP) Pulse Ox O2 Delivery O2 Flow Rate FiO2 07/04/17 18:00 106 24 98/55 100 Mechanical Ventilator 30 07/04/17 17:00 113 22 30 07/04/17 17:00 115 28 134/64 100 Mechanical Ventilator 30 07/04/17 16:00 98.6 98 21 104/51 100 Mechanical Ventilator 30 07/04/17 15:33 98 07/04/17 15:00 30 07/04/17 15:00 100 20 90/44 100 Mechanical Ventilator 30 07/04/17 14:57 103 23 30 07/04/17 14:00 101 30 102/49 100 Mechanical Ventilator 30 07/04/17 13:08 102 32 30 07/04/17 13:00 98.0 101 33 99/52 99 Mechanical Ventilator 30 07/04/17 12:00 105 27 98/51 100 Mechanical Ventilator 30 07/04/17 12:00 30 07/04/17 11:39 103 07/04/17 11:16 106 29 30 07/04/17 11:00 109 37 131/64 100 Mechanical Ventilator 30 07/04/17 10:00 94 26 87/45 95 Mechanical Ventilator 30 07/04/17 09:28 103 28 30 07/04/17 09:27 100 07/04/17 09:00 102 29 103/54 100 Mechanical Ventilator 30 07/04/17 08:03 30 07/04/17 08:00 97.8 101 30 92/50 100 Mechanical Ventilator 30 07/04/17 08:00 30 07/04/17 07:48 108 07/04/17 07:27 104 32 30 07/04/17 07:00 109 28 92/56 100 Mechanical Ventilator 30 07/04/17 06:00 106 28 92/56 100 Mechanical Ventilator 30 07/04/17 05:27 91 32 30 07/04/17 05:00 101 23 116/56 100 Mechanical Ventilator 30 07/04/17 04:46 Mechanical Ventilator 30 07/04/17 04:00 98.3 96 32 97/51 100 Mechanical Ventilator 30 07/04/17 04:00 96 07/04/17 04:00 30 07/04/17 03:24 93 20 30 07/04/17 03:00 104 23 137/69 100 Mechanical Ventilator 30 07/04/17 02:00 101 25 122/59 100 Mechanical Ventilator 30 07/04/17 01:24 91 36 30 07/04/17 01:00 94 28 107/57 100 Mechanical Ventilator 30 07/04/17 00:00 93 07/04/17 00:00 30 07/04/17 00:00 98.7 93 27 95/48 100 Mechanical Ventilator 30 07/03/17 23:24 95 31 30 07/03/17 23:00 96 34 108/58 100 Mechanical Ventilator 30 07/03/17 22:00 99 30 122/56 100 Mechanical Ventilator 30 07/03/17 21:00 98 35 30 07/03/17 21:00 93 29 104/52 100 Mechanical Ventilator 30 07/03/17 20:00 90 07/03/17 20:00 30 07/03/17 20:00 98.2 90 24 100/52 100 Mechanical Ventilator 30 Intake and Output 07/03/17 07/04/17 19:00 07:00 Intake Total 790 ml 530 ml Output Total 0 ml 0 ml Balance 790 ml 530 ml Intake Free Water 80 ml 80 ml IV Total 110 ml Tube Feeding 600 ml 450 ml Output Urine Total 0 ml 0 ml # Bowel Movements 3 2 Height (Feet): 5 Height (Inches): 10.00 Weight (Pounds): 174 General Appearance: lethargic EENT: normal ENT inspection Neck: normal alignment Cardiovascular: normal rate, tachycardia Respiratory/Chest: rhonchi - bilaterally Abdomen: non tender Extremities: moderate edema Neurologic: unresponsive LEONORA HUI Jul 04, 2017 19:18
[2017-07-04] MEDS: Dyna-Hex 2% Top Sol 2oz TOPIC SCH (20:25)
[2017-07-05] VITALS (25 sets, daily range): BP systolic 100–133; BP diastolic 49–77
[2017-07-05] MEDS: NovoLOG Insulin Flexpen SUBQ SCH ×4 (05:58→23:42)
--- NOTE | 2017-07-05 08:37 | Pulmonology Progress Note ---
Assessment/Plan Assessment/Plan 1. Respiratory failure. 2. Sepsis with shock. 3. Stroke with dementia and right hemiparesis. 4. Diabetes. pressor, titrate map greater than 65 mmhg still on vent, continue weaning; doing well nebs and suction abx per id wound care CXR shows bilateral effusions (left greater than right) watch io, may need thoracentesis; TF and asp risk disc w RN pt is DNR Subjective Interval Events: Weaning well; responsive Constitutional: Reports: no symptoms HEENT: Repors: no symptoms Respiratory: Reports: no symptoms Cardiovascular: Reports: no symptoms Gastrointestinal/Abdominal: Reports: no symptoms Genitourinary: Reports: no symptoms Allergies: Coded Allergies: No Known Allergies (Unverified , 06/18/17) Objective Last 24 Hour Vital Signs Date Time Temp Pulse Resp B/P (MAP) Pulse Ox O2 Delivery O2 Flow Rate FiO2 07/05/17 08:13 30 07/05/17 08:01 101 24 30 07/05/17 08:00 100 07/05/17 08:00 98.4 100 23 117/58 99 Mechanical Ventilator 30 07/05/17 07:28 103 20 30 07/05/17 07:00 102 23 118/61 100 Mechanical Ventilator 30 07/05/17 06:00 105 23 122/62 100 Mechanical Ventilator 30 07/05/17 05:16 108 22 30 07/05/17 05:00 105 32 108/54 100 Mechanical Ventilator 30 07/05/17 04:00 104 07/05/17 04:00 30 07/05/17 04:00 98.3 105 21 117/61 100 Mechanical Ventilator 30 07/05/17 03:34 98 21 30 07/05/17 03:00 103 20 100/52 100 Mechanical Ventilator 30 07/05/17 02:00 106 21 102/49 100 Mechanical Ventilator 30 07/05/17 01:00 99 13 101/51 99 Mechanical Ventilator 30 07/05/17 00:00 30 07/05/17 00:00 95 07/05/17 00:00 98.7 99 32 109/51 100 Mechanical Ventilator 30 07/04/17 23:58 100 20 30 07/04/17 23:00 95 20 95/48 99 Mechanical Ventilator 30 07/04/17 22:01 97 20 30 07/04/17 22:00 97 29 109/51 100 Mechanical Ventilator 30 07/04/17 21:00 95 23 103/50 100 Mechanical Ventilator 30 07/04/17 20:00 30 07/04/17 20:00 103 07/04/17 20:00 98.7 102 27 124/56 100 Mechanical Ventilator 30 07/04/17 19:45 104 21 30 07/04/17 19:00 102 35 115/56 100 Mechanical Ventilator 30 07/04/17 18:00 106 24 98/55 100 Mechanical Ventilator 30 07/04/17 17:00 113 22 30 07/04/17 17:00 115 28 134/64 100 Mechanical Ventilator 30 07/04/17 16:00 98.6 98 21 104/51 100 Mechanical Ventilator 30 07/04/17 15:33 98 07/04/17 15:00 30 07/04/17 15:00 100 20 90/44 100 Mechanical Ventilator 30 07/04/17 14:57 103 23 30 07/04/17 14:00 101 30 102/49 100 Mechanical Ventilator 30 07/04/17 13:08 102 32 30 07/04/17 13:00 98.0 101 33 99/52 99 Mechanical Ventilator 30 07/04/17 12:00 105 27 98/51 100 Mechanical Ventilator 30 07/04/17 12:00 30 07/04/17 11:39 103 07/04/17 11:16 106 29 30 07/04/17 11:00 109 37 131/64 100 Mechanical Ventilator 30 07/04/17 10:00 94 26 87/45 95 Mechanical Ventilator 30 07/04/17 09:28 103 28 30 07/04/17 09:27 100 07/04/17 09:00 102 29 103/54 100 Mechanical Ventilator 30 Intake and Output 07/04/17 07/05/17 19:00 07:00 Intake Total 435 ml 520 ml Balance 435 ml 520 ml IV Total 55 ml Tube Feeding 330 ml 520 ml Other 50 ml # Bowel Movements 2 3 General Appearance: no acute distress HEENT: normocephalic Respiratory/Chest: chest wall non-tender, lungs clear Cardiovascular: normal peripheral pulses, normal rate Laboratory Tests 07/05/17 05:40: Random Vancomycin Level 18.0 Current Medications Medications (Trade) Dose Ordered Sig/Jaime Route PRN Reason Start Time Stop Time Status Last Admin Dose Admin Acetaminophen (Tylenol) 650 mg Q4H PRN RECTAL Prn Headache/Temp > 101 12/24/17 21:00 07/18/17 20:59 06/20/17 12:42 Aspirin (ASA) 81 mg DAILY NG 06/19/17 19:00 07/19/17 18:59 07/04/17 08:23 Cefepime HCl 1 gm/ Dextrose 55 ml @ 110 mls/hr Q24H IVPB 06/28/17 11:00 07/11/17 10:59 07/04/17 10:38 Chlorhexidine Gluconate (Kati-Hex 2%) 1 applic Q24H TOPIC 06/19/17 20:00 07/19/17 19:59 07/04/17 20:25 Dextrose (Dextrose 50%) STAT PRN IV Hypoglycemia 06/19/17 13:00 07/19/17 12:59 06/23/17 05:35 Epoetin Russ (Procrit (for ESRD on dialysis)) 5,000 units MON-MON-MON SUBQ 06/21/17 21:00 07/21/17 20:59 07/03/17 20:55 Heparin Sodium (Porcine) (Heparin 5000 units/ml) 5,000 units EVERY 12 HOURS SUBQ 06/18/17 21:00 07/18/17 20:59 07/04/17 21:44 Insulin Aspart (NovoLOG) EVERY 6 HOURS SUBQ 06/19/17 18:00 07/19/17 17:59 07/05/17 05:58 Lansoprazole (Prevacid) 30 mg DAILY GT 06/19/17 09:00 07/19/17 08:59 07/04/17 08:23 Sodium Chloride 1,000 ml @ 500 mls/hr Q2H PRN IVLG sbp<90 during hd 06/27/17 11:09 07/27/17 11:08 Vancomycin HCl (Vanco rx to dose) 1 ea DAILY PRN MISC Per rx protocol 06/19/17 02:45 07/19/17 02:44 Vancomycin HCl 1 gm/Dextrose 275 ml @ 183.708 mls/hr ONCE ONCE IVPB 07/05/17 10:00 07/05/17 11:29 Steven Olmos MD Jul 05, 2017 08:37
[2017-07-05] MEDS: Aspirin Baby 81mg NG SCH (08:39)
[2017-07-05] MEDS: Heparin 5000 units/ml inj SUBQ SCH ×2 (08:44→20:36)
--- NOTE | 2017-07-05 09:09 | General Progress Note ---
Assessment/Plan Problem List: (1) Healthcare-associated pneumonia ICD Codes: J18.9 - Pneumonia, unspecified organism SNOMED: 199018275 (2) Malnutrition of moderate degree ICD Codes: E44.0 - Moderate protein-calorie malnutrition SNOMED: 319966048 (3) End-stage renal disease ICD Codes: N18.6 - End stage renal disease SNOMED: 59273173 (4) Respiratory failure ICD Codes: J96.90 - Respiratory failure, unspecified, unspecified whether with hypoxia or hypercapnia SNOMED: 763199941 (5) Septic shock ICD Codes: A41.9 - Sepsis, unspecified organism; R65.21 - Severe sepsis with septic shock SNOMED: 72304743 Assessment/Plan icu care, hd 07/06 Subjective ROS Limited/Unobtainable: Yes Allergies: Coded Allergies: No Known Allergies (Unverified , 06/18/17) Objective Last 24 Hour Vital Signs Date Time Temp Pulse Resp B/P (MAP) Pulse Ox O2 Delivery O2 Flow Rate FiO2 07/05/17 08:13 30 07/05/17 08:01 101 24 30 07/05/17 08:00 100 07/05/17 08:00 98.4 100 23 117/58 99 Mechanical Ventilator 30 07/05/17 07:28 103 20 30 07/05/17 07:00 102 23 118/61 100 Mechanical Ventilator 30 07/05/17 06:00 105 23 122/62 100 Mechanical Ventilator 30 07/05/17 05:16 108 22 30 07/05/17 05:00 105 32 108/54 100 Mechanical Ventilator 30 07/05/17 04:00 104 07/05/17 04:00 30 07/05/17 04:00 98.3 105 21 117/61 100 Mechanical Ventilator 30 07/05/17 03:34 98 21 30 07/05/17 03:00 103 20 100/52 100 Mechanical Ventilator 30 07/05/17 02:00 106 21 102/49 100 Mechanical Ventilator 30 07/05/17 01:00 99 13 101/51 99 Mechanical Ventilator 30 07/05/17 00:00 30 07/05/17 00:00 95 07/05/17 00:00 98.7 99 32 109/51 100 Mechanical Ventilator 30 07/04/17 23:58 100 20 30 07/04/17 23:00 95 20 95/48 99 Mechanical Ventilator 30 07/04/17 22:01 97 20 30 07/04/17 22:00 97 29 109/51 100 Mechanical Ventilator 30 07/04/17 21:00 95 23 103/50 100 Mechanical Ventilator 30 07/04/17 20:00 30 07/04/17 20:00 103 07/04/17 20:00 98.7 102 27 124/56 100 Mechanical Ventilator 30 07/04/17 19:45 104 21 30 07/04/17 19:00 102 35 115/56 100 Mechanical Ventilator 30 07/04/17 18:00 106 24 98/55 100 Mechanical Ventilator 30 07/04/17 17:00 113 22 30 07/04/17 17:00 115 28 134/64 100 Mechanical Ventilator 30 07/04/17 16:00 98.6 98 21 104/51 100 Mechanical Ventilator 30 07/04/17 15:33 98 07/04/17 15:00 30 07/04/17 15:00 100 20 90/44 100 Mechanical Ventilator 30 07/04/17 14:57 103 23 30 07/04/17 14:00 101 30 102/49 100 Mechanical Ventilator 30 07/04/17 13:08 102 32 30 07/04/17 13:00 98.0 101 33 99/52 99 Mechanical Ventilator 30 07/04/17 12:00 105 27 98/51 100 Mechanical Ventilator 30 07/04/17 12:00 30 07/04/17 11:39 103 07/04/17 11:16 106 29 30 07/04/17 11:00 109 37 131/64 100 Mechanical Ventilator 30 07/04/17 10:00 94 26 87/45 95 Mechanical Ventilator 30 07/04/17 09:28 103 28 30 07/04/17 09:27 100 Intake and Output 07/04/17 07/05/17 19:00 07:00 Intake Total 435 ml 520 ml Balance 435 ml 520 ml IV Total 55 ml Tube Feeding 330 ml 520 ml Other 50 ml # Bowel Movements 2 3 Laboratory Tests 07/05/17 05:40: Random Vancomycin Level 18.0 Height (Feet): 5 Height (Inches): 10.00 Weight (Pounds): 172 General Appearance: lethargic, mild distress EENT: normal ENT inspection Neck: normal alignment Cardiovascular: regular rhythm Respiratory/Chest: rhonchi - bilaterally Abdomen: non tender Edema: trace edema Neurologic: unresponsive LANG,LEONORA Jul 05, 2017 09:09
--- NOTE | 2017-07-05 09:42 | Progress Note ---
DATE: 07/03/2017 CARDIOLOGY PROGRESS NOTE SUBJECTIVE: The patient remains off pressors. He has not been able to be weaned off the ventilator. He continues to require respiratory hygiene. He is on hemodialysis with ultrafiltration chronically. OBJECTIVE: CHEST: Coarse breath sounds. Scattered rhonchi. HEART: Regular rhythm and rate. Normal S1, S2. ABDOMEN: Soft. G-tube intact. EXTREMITIES: Trace dependent edema. IMPRESSION: 1. Failure to wean. 2. Severe protein-calorie malnutrition. 3. Recovered shock. 4. Sepsis due to infected dialysis catheter, now removed. 5. Chronic diastolic congestive heart failure. 6. Acute myocardial infarction and ischemia. PLAN: 1. No resumption of pressors. 2. Antimicrobials per infectious disease team. 3. Weaning efforts. 4. Avoid trach, would favor optimization and extubation with no plan for re-intubation in this clinical setting. 5. Continue hemodialysis with ultrafiltration for volume management. Gurdeep Harvey M.D. DR: TOMMY/scotty JOB#: [id number] CC:
--- NOTE | 2017-07-05 09:42 | Progress Note ---
DATE: 07/02/2017 CARDIOLOGY PROGRESS NOTE SUBJECTIVE: The patient remains orally intubated, mechanically ventilated, and not tolerating wean. The patient is now off pressors. OBJECTIVE: VITAL SIGNS: Blood pressure is 118/76, pulse 95, respiratory rate 23. No fever. LUNGS: Coarse breath sounds. Scattered rhonchi. HEART: Regular rhythm and rate. Normal S1, S2. ABDOMEN: Soft. EXTREMITIES: Trace edema. LABORATORY DATA: White count 9.4, hemoglobin 9. IMPRESSION: 1. Remains critical and guarded. 2. Persistent respiratory failure. 3. Acute myocardial infarction. 4. Recovered shock due to sepsis. 5. Anemia, status post transfusion. 6. End-stage renal disease. 7. Line sepsis, status post replacement. 8. Severe protein-calorie malnutrition. PLAN: 1. Continue weaning efforts. 2. Hemodialysis with ultrafiltration. 3. Keep dry. 4. No resumption of pressors. 5. DNR. 6. for extubation. 7. Nutritional support by feeding tube. 8. Antibiotics per infectious disease reporting consultant. Gurdeep Harvey M.D. DR: Liana JOB#: [id number] CC:
--- NOTE | 2017-07-05 09:43 | Progress Note ---
DATE: 07/04/2017 CARDIOLOGY PROGRESS NOTE SUBJECTIVE: The patient remains on ventilator support. He is off pressors. Weaning efforts are ongoing. At this time, he remains unweanable. OBJECTIVE: LUNGS: Coarse breath sounds. Scattered rhonchi. HEART: Regular rhythm and rate. Normal S1, S2. EXTREMITIES: With dependent edema. IMPRESSION: 1. Sepsis with shock. 2. Respiratory failure. 3. Advanced dementia. 4. End-stage renal disease. 5. Chronic diastolic congestive heart failure. 6. Severe protein-calorie malnutrition. 7. Line sepsis. 8. Status post dialysis catheter replacement. PLAN: 1. No resumption of pressors. 2. Continue antimicrobials. 3. Hemodialysis with ultrafiltration. 4. Optimize and consider no further intubation efforts, but rather hospice care. Gurdeep Harvey M.D. DR: ROMAIN JOB#: [id number] CC:
[2017-07-05] MEDS ORDERED: Vancomycin 1gm/D5W 275ml IVPB ONE ×2 (10:00)
--- NOTE | 2017-07-05 12:31 | Infectious Diseases Prog Note ---
"Assessment/Plan Assessment/Plan antibiotics : vancomycin iv, cefepime A 1. MRSA sepsis s/p catheter removal 2. septic shock 3. respiratory failure 4. renal failure 5. MRSA | enterobacter pneumonia 6. leucocytosis improving P 1. continue vancomycin iv, cefepime 2. will follow up cultures Subjective ROS Limited/Unobtainable: Yes Allergies: Coded Allergies: No Known Allergies (Unverified , 06/18/17) Objective Vital Signs Last 24 Hour Vital Signs Date Time Temp Pulse Resp B/P (MAP) Pulse Ox O2 Delivery O2 Flow Rate FiO2 07/05/17 12:00 104 07/05/17 12:00 98.4 104 38 128/62 98 T-piece 30 07/05/17 11:00 101 38 116/58 100 Mechanical Ventilator 30 07/05/17 10:48 104 33 30 07/05/17 10:26 30 07/05/17 10:00 99 30 126/62 100 Mechanical Ventilator 30 07/05/17 09:10 101 16 30 07/05/17 09:09 100 07/05/17 09:00 101 24 125/61 100 Mechanical Ventilator 30 07/05/17 08:13 30 07/05/17 08:01 101 24 30 07/05/17 08:00 100 07/05/17 08:00 98.4 100 23 117/58 99 Mechanical Ventilator 30 07/05/17 07:28 103 20 30 07/05/17 07:00 102 23 118/61 100 Mechanical Ventilator 30 07/05/17 06:00 105 23 122/62 100 Mechanical Ventilator 30 07/05/17 05:16 108 22 30 07/05/17 05:00 105 32 108/54 100 Mechanical Ventilator 30 07/05/17 04:00 104 07/05/17 04:00 30 07/05/17 04:00 98.3 105 21 117/61 100 Mechanical Ventilator 30 07/05/17 03:34 98 21 30 07/05/17 03:00 103 20 100/52 100 Mechanical Ventilator 30 07/05/17 02:00 106 21 102/49 100 Mechanical Ventilator 30 07/05/17 01:00 99 13 101/51 99 Mechanical Ventilator 30 07/05/17 00:00 30 07/05/17 00:00 95 07/05/17 00:00 98.7 99 32 109/51 100 Mechanical Ventilator 30 07/04/17 23:58 100 20 30 07/04/17 23:00 95 20 95/48 99 Mechanical Ventilator 30 07/04/17 22:01 97 20 30 07/04/17 22:00 97 29 109/51 100 Mechanical Ventilator 30 07/04/17 21:00 95 23 103/50 100 Mechanical Ventilator 30 07/04/17 20:00 30 07/04/17 20:00 103 07/04/17 20:00 98.7 102 27 124/56 100 Mechanical Ventilator 30 07/04/17 19:45 104 21 30 07/04/17 19:00 102 35 115/56 100 Mechanical Ventilator 30 07/04/17 18:00 106 24 98/55 100 Mechanical Ventilator 30 07/04/17 17:00 113 22 30 07/04/17 17:00 115 28 134/64 100 Mechanical Ventilator 30 07/04/17 16:00 98.6 98 21 104/51 100 Mechanical Ventilator 30 07/04/17 15:33 98 07/04/17 15:00 30 07/04/17 15:00 100 20 90/44 100 Mechanical Ventilator 30 07/04/17 14:57 103 23 30 07/04/17 14:00 101 30 102/49 100 Mechanical Ventilator 30 07/04/17 13:08 102 32 30 07/04/17 13:00 98.0 101 33 99/52 99 Mechanical Ventilator 30 Height (Feet): 5 Height (Inches): 10.00 Weight (Pounds): 172 HEENT: other - intubated Respiratory/Chest: lungs clear Cardiovascular: normal rate, regular rhythm, no gallop/murmur Abdomen: soft, non tender Extremities: no edema, other - left IJ catheter Laboratory Tests Test 07/05/17 05:40 07/05/17 11:30 Random Vancomycin Level 18.0 ug/mL Arterial Blood pH 7.419 (7.350-7.450) Arterial Blood Partial Pressure CO2 33.1 mmHg (35.0-45.0) L Arterial Blood Partial Pressure O2 111.3 mmHg (75.0-100.0) H Arterial Blood HCO3 20.9 mmol/L (22.0-26.0) L Arterial Blood Oxygen Saturation 97.8 % (92.0-98.0) Arterial Blood Base Excess -3.0 Jones Test Positive ARTIS SANTIAGO Jul 05, 2017 12:31"
--- NOTE | 2017-07-05 12:57 | General Progress Note ---
Assessment/Plan Problem List: (1) Catheter-related bloodstream infection ICD Codes: T80.211A - Bloodstream infection due to central venous catheter, initial encounter SNOMED: 220298722 (2) Renal failure ICD Codes: N19 - Unspecified kidney failure SNOMED: 09084073 (3) Septic shock ICD Codes: A41.9 - Sepsis, unspecified organism; R65.21 - Severe sepsis with septic shock SNOMED: 69876209 (4) Respiratory failure ICD Codes: J96.90 - Respiratory failure, unspecified, unspecified whether with hypoxia or hypercapnia SNOMED: 223235078 (5) Malnutrition of moderate degree ICD Codes: E44.0 - Moderate protein-calorie malnutrition SNOMED: 363966453 (6) End-stage renal disease ICD Codes: N18.6 - End stage renal disease SNOMED: 42208388 (7) Healthcare-associated pneumonia ICD Codes: J18.9 - Pneumonia, unspecified organism SNOMED: 092946858 Status: stable, progressing Assessment/Plan cont iv abx HD as tolerated. wean vent- more alert. defer to pulm resp rx feeds dvt/stress ulcer prophyalxi monitor h/h transfuse as needed epo/iron critical and guarded dnr Subjective ROS Limited/Unobtainable: No Constitutional: Reports: malaise, weakness HEENT: Reports: no symptoms Cardiovascular: Reports: no symptoms Respiratory: Reports: no symptoms Gastrointestinal/Abdominal: Reports: no symptoms Genitourinary: Reports: no symptoms Neurologic/Psychiatric: Reports: no symptoms Endocrine: Reports: excessive sweating Hematologic/Lymphatic: Reports: anemia Allergies: Coded Allergies: No Known Allergies (Unverified , 06/18/17) All Systems: reviewed and negative except above Subjective remains intubated. much more alert. tracks. no secretion or congestion. tolerating cpap. Objective Last 24 Hour Vital Signs Date Time Temp Pulse Resp B/P (MAP) Pulse Ox O2 Delivery O2 Flow Rate FiO2 07/05/17 12:46 30 07/05/17 12:45 96 T-piece 6.0 30 07/05/17 12:15 T-piece 6.0 30 07/05/17 12:00 104 07/05/17 12:00 98.4 104 38 128/62 98 T-piece 30 07/05/17 11:00 101 38 116/58 100 Mechanical Ventilator 30 07/05/17 10:48 104 33 30 07/05/17 10:26 30 07/05/17 10:00 99 30 126/62 100 Mechanical Ventilator 30 07/05/17 09:10 101 16 30 07/05/17 09:09 100 07/05/17 09:00 101 24 125/61 100 Mechanical Ventilator 30 07/05/17 08:13 30 07/05/17 08:01 101 24 30 07/05/17 08:00 100 07/05/17 08:00 98.4 100 23 117/58 99 Mechanical Ventilator 30 07/05/17 07:28 103 20 30 07/05/17 07:00 102 23 118/61 100 Mechanical Ventilator 30 07/05/17 06:00 105 23 122/62 100 Mechanical Ventilator 30 07/05/17 05:16 108 22 30 07/05/17 05:00 105 32 108/54 100 Mechanical Ventilator 30 07/05/17 04:00 104 07/05/17 04:00 30 07/05/17 04:00 98.3 105 21 117/61 100 Mechanical Ventilator 30 07/05/17 03:34 98 21 30 07/05/17 03:00 103 20 100/52 100 Mechanical Ventilator 30 07/05/17 02:00 106 21 102/49 100 Mechanical Ventilator 30 07/05/17 01:00 99 13 101/51 99 Mechanical Ventilator 30 07/05/17 00:00 30 07/05/17 00:00 95 07/05/17 00:00 98.7 99 32 109/51 100 Mechanical Ventilator 30 07/04/17 23:58 100 20 30 07/04/17 23:00 95 20 95/48 99 Mechanical Ventilator 30 07/04/17 22:01 97 20 30 07/04/17 22:00 97 29 109/51 100 Mechanical Ventilator 30 07/04/17 21:00 95 23 103/50 100 Mechanical Ventilator 30 07/04/17 20:00 30 07/04/17 20:00 103 07/04/17 20:00 98.7 102 27 124/56 100 Mechanical Ventilator 30 07/04/17 19:45 104 21 30 07/04/17 19:00 102 35 115/56 100 Mechanical Ventilator 30 07/04/17 18:00 106 24 98/55 100 Mechanical Ventilator 30 07/04/17 17:00 113 22 30 07/04/17 17:00 115 28 134/64 100 Mechanical Ventilator 30 07/04/17 16:00 98.6 98 21 104/51 100 Mechanical Ventilator 30 07/04/17 15:33 98 07/04/17 15:00 30 07/04/17 15:00 100 20 90/44 100 Mechanical Ventilator 30 07/04/17 14:57 103 23 30 07/04/17 14:00 101 30 102/49 100 Mechanical Ventilator 30 07/04/17 13:08 102 32 30 07/04/17 13:00 98.0 101 33 99/52 99 Mechanical Ventilator 30 Intake and Output 07/04/17 07/05/17 19:00 07:00 Intake Total 435 ml 520 ml Balance 435 ml 520 ml IV Total 55 ml Tube Feeding 330 ml 520 ml Other 50 ml # Bowel Movements 2 3 Laboratory Tests 07/05/17 05:40: Random Vancomycin Level 18.0 07/05/17 11:30: Arterial Blood pH 7.419, Arterial Blood Partial Pressure CO2 33.1L, Arterial Blood Partial Pressure O2 111.3H, Arterial Blood HCO3 20.9L, Arterial Blood Oxygen Saturation 97.8, Arterial Blood Base Excess -3.0, Jones Test Positive Height (Feet): 5 Height (Inches): 10.00 Weight (Pounds): 172 Objective General Appearance: WD/WN, lethargic, confused Neck: supple Cardiovascular: regular rhythm Respiratory/Chest: chest wall non-tender, lungs clear, normal breath sounds, no respiratory distress Abdomen: normal bowel sounds, non tender, soft, no organomegaly, no mass Edema: no edema noted Arm (L), no edema noted Arm (R), no edema noted Leg (L), no edema noted Leg (R), no edema noted Pedal (L), no edema noted Pedal (R), no edema noted Generalized Neurologic: more alert, aphasia KEENA BRANDT Jul 05, 2017 12:57
[2017-07-05] MEDS ORDERED: NS 275ml ONE (17:08)
[2017-07-05] MEDS ORDERED: Tubing IV Secondary IV ONE (17:08)
[2017-07-05] MEDS ORDERED: Tubing IV Blood Pump IV ONE (17:08)
[2017-07-05] MEDS: Dyna-Hex 2% Top Sol 2oz TOPIC SCH (20:34)
[2017-07-05] MEDS: Epogen (for ESRD on dialysis) SUBQ SCH (20:37)
[2017-07-05] MEDS ORDERED: Cefepime 500mg in D5W 55ml IVPB SCH (21:00)
[2017-07-06] VITALS (24 sets, daily range): BP systolic 88–134; BP diastolic 44–76
--- NOTE | 2017-07-06 03:15 | Progress Note ---
DATE: 07/05/2017 CARDIOLOGY PROGRESS NOTE SUBJECTIVE: The patient remains in the intensive care unit. He is on a G-tube trial at this time and is tolerating well. More alert. OBJECTIVE: VITAL SIGNS: Blood pressure 128/62, heart rate 104, and respirations 38. LUNGS: Moderate breath sounds. No wheezing. HEART: Regular rhythm and rate. Normal S1 and S2. ABDOMEN: Soft. EXTREMITIES: Trace edema. LABORATORY DATA: ABG, pH 7.42, pCO2 34, and pO2 76. IMPRESSION: 1. Respiratory failure. 2. Recovered shock due to sepsis. 3. End-stage renal disease. 4. Acute on chronic diastolic congestive heart failure. 5. Severe protein-calorie malnutrition. 6. Line sepsis. 7. Status post removal of dialysis catheter. PLAN: 1. Weaning efforts with extubation as goal. 2. No plan for trach. 3. No resumption of pressors. 4. DNR. 5. Transfuse for hemoglobin less than 8 g. 6. Antimicrobials per Infectious Disease pension consultant. 7. Hemodialysis with ultrafiltration based on clinical parameters. Lili Mccarty JOB#: [id number] CC:
[2017-07-06 05:35] LABS: BASOPHILS % (AUTO) 0.5 % (0.0-2.0); HEMATOCRIT 30.1 % (42.0-52.0); HEMOGLOBIN 9.7 G/DL (14.2-18.0); LYMPHOCYTES % (AUTO) 14.2 % (20.0-45.0); MEAN CORPUSCULAR VOLUME 91 FL (80-99); NEUTROPHILS % (AUTO) 75.3 % (45.0-75.0); PLATELET COUNT 397 K/UL (150-450); RED BLOOD COUNT 3.32 M/UL (4.70-6.10); RED CELL DISTRIBUTION WIDTH 19.2 % (11.6-14.8); WHITE BLOOD COUNT 11.5 K/UL (4.8-10.8)
[2017-07-06] MEDS: NovoLOG Insulin Flexpen SUBQ SCH ×3 (05:51→17:15)
[2017-07-06 06:06] LABS: ALANINE AMINOTRANSFERASE 34 U/L (12-78); ALBUMIN 1.2 G/DL (3.4-5.0); ALBUMIN/GLOBULIN RATIO 0.2 (1.0-2.7); ALKALINE PHOSPHATASE 297 U/L (46-116); ANION GAP 11 mmol/L (5-15); ASPARTATE AMINO TRANSFERASE 74 U/L (15-37); BILIRUBIN,TOTAL 0.5 MG/DL (0.2-1.0); BLOOD UREA NITROGEN 56 mg/dL (7-18); CALCIUM 8.1 MG/DL (8.5-10.1); CARBON DIOXIDE 23 MMOL/L (21-32); CHLORIDE 106 MMOL/L (98-107); CREATININE 4.8 MG/DL (0.55-1.30); POTASSIUM 4.4 MMOL/L (3.5-5.1); SODIUM 140 MMOL/L (136-145)
[2017-07-06] MEDS: Aspirin Baby 81mg NG SCH (09:02)
[2017-07-06] MEDS: Heparin 5000 units/ml inj SUBQ SCH ×2 (09:03→20:53)
[2017-07-06] MEDS ORDERED: Heparin Sod 1000 units/ml 10ml IV PRN (09:15)
--- NOTE | 2017-07-06 09:24 | Nephrology Progress Note ---
Assessment/Plan Problem List: (1) Healthcare-associated pneumonia (2) Malnutrition of moderate degree (3) End-stage renal disease (4) Respiratory failure (5) Septic shock Plan , meds reviewed for eskd,hypotension, mrsa sepsis, he isunable to sign as critically ill, hd via new cath 06/27 , flow variable observe hd 06/29,remains on pressors--off 15 am, hd 07/01 +07/04 still low-nl bp , unresponsive, poor prognosis hd 07/06 seen on hd Subjective ROS Limited/Unobtainable: Yes Objective Objective Last 24 Hour Vital Signs Date Time Temp Pulse Resp B/P (MAP) Pulse Ox O2 Delivery O2 Flow Rate FiO2 07/06/17 09:00 98.4 108 40 122/72 99 T-piece 30 07/06/17 08:00 107 07/06/17 08:00 108 40 120/60 98 T-piece 30 07/06/17 08:00 30 07/06/17 08:00 Mechanical Ventilator 30 07/06/17 07:00 112 34 121/61 99 T-piece 30 07/06/17 06:36 97 T-piece 6.0 30 07/06/17 06:36 T-piece 6.0 30 07/06/17 06:00 114 33 118/60 95 T-piece 30 07/06/17 05:00 113 33 126/62 97 T-piece 30 07/06/17 04:00 30 07/06/17 04:00 98.2 113 32 131/66 98 T-piece 30 07/06/17 04:00 111 07/06/17 03:00 112 33 125/66 97 T-piece 30 07/06/17 02:00 112 22 125/66 97 T-piece 30 07/06/17 01:25 T-piece 6.0 30 07/06/17 01:25 95 T-piece 6.0 30 07/06/17 01:00 110 22 131/67 95 T-piece 30 07/06/17 00:00 98.3 112 27 134/76 93 T-piece 30 07/06/17 00:00 103 07/06/17 00:00 30 07/05/17 23:00 103 34 122/66 96 T-piece 30 07/05/17 22:00 100 30 120/68 94 T-piece 30 07/05/17 21:00 106 16 121/63 96 T-piece 30 07/05/17 20:00 30 07/05/17 20:00 98.2 103 33 120/56 93 T-piece 30 07/05/17 20:00 100 07/05/17 19:09 T-piece 6.0 30 07/05/17 19:09 99 T-piece 6.0 30 07/05/17 19:00 105 36 122/66 98 T-piece 30 07/05/17 18:00 111 38 133/74 98 T-piece 30 07/05/17 17:00 108 33 115/58 97 T-piece 30 07/05/17 16:00 106 07/05/17 16:00 98.6 107 33 116/67 100 T-piece 30 07/05/17 16:00 30 07/05/17 15:00 107 33 132/70 100 T-piece 30 07/05/17 14:58 30 07/05/17 14:00 108 36 120/77 99 T-piece 30 07/05/17 13:00 108 29 116/58 97 T-piece 30 07/05/17 12:46 30 07/05/17 12:45 96 T-piece 6.0 30 07/05/17 12:15 T-piece 6.0 30 07/05/17 12:00 104 07/05/17 12:00 98.4 104 38 128/62 98 T-piece 30 07/05/17 11:00 101 38 116/58 100 Mechanical Ventilator 30 07/05/17 10:48 104 33 30 07/05/17 10:26 30 07/05/17 10:00 99 30 126/62 100 Mechanical Ventilator 30 Intake and Output 07/05/17 07/06/17 19:00 07:00 Intake Total 540 ml 535 ml Balance 540 ml 535 ml IV Total 55 ml Tube Feeding 480 ml 480 ml Other 60 ml # Bowel Movements 1 4 Laboratory Tests 07/05/17 11:30: Arterial Blood pH 7.419, Arterial Blood Partial Pressure CO2 33.1L, Arterial Blood Partial Pressure O2 111.3H, Arterial Blood HCO3 20.9L, Arterial Blood Oxygen Saturation 97.8, Arterial Blood Base Excess -3.0, Jones Test Positive 07/05/17 15:00: Arterial Blood pH 7.421, Arterial Blood Partial Pressure CO2 34.4L, Arterial Blood Partial Pressure O2 76.0, Arterial Blood HCO3 21.9L, Arterial Blood Oxygen Saturation 95.1, Arterial Blood Base Excess -2.2, Jones Test Positive 07/06/17 05:05: White Blood Count 11.5H, Red Blood Count 3.32L, Hemoglobin 9.7L, Hematocrit 30.1L, Mean Corpuscular Volume 91, Mean Corpuscular Hemoglobin 29.3, Mean Corpuscular Hemoglobin Concent 32.4, Red Cell Distribution Width 19.2H, Platelet Count 397, Mean Platelet Volume 6.4L, Neutrophils (%) (Auto) 75.3H, Lymphocytes (%) (Auto) 14.2L, Monocytes (%) (Auto) 9.0, Eosinophils (%) (Auto) 1.0, Basophils (%) (Auto) 0.5, Sodium Level 140, Potassium Level 4.4, Chloride Level 106, Carbon Dioxide Level 23, Anion Gap 11, Blood Urea Nitrogen 56H, Creatinine 4.8H, Estimat Glomerular Filtration Rate , Glucose Level 131H, Calcium Level 8.1L, Magnesium Level 2.1, Total Bilirubin 0.5, Aspartate Amino Transf (AST/SGOT) 74H, Alanine Aminotransferase (ALT/SGPT) 34, Alkaline Phosphatase 297H, Total Protein 6.9, Albumin 1.2L, Globulin 5.7, Albumin/ Globulin Ratio 0.2L Height (Feet): 5 Height (Inches): 10.00 Weight (Pounds): 170 General Appearance: lethargic EENT: normal ENT inspection Neck: normal alignment Cardiovascular: regular rhythm, tachycardia Respiratory/Chest: rhonchi - bilaterally Abdomen: non tender Extremities: moderate edema Neurologic: disoriented LEONORA HUI Jul 06, 2017 09:24
--- NOTE | 2017-07-06 10:05 | Infectious Diseases Prog Note ---
Assessment/Plan Assessment/Plan A 1. MRSA sepsis s/p catheter removal 2. septic shock resolved 3. respiratory failure 4. renal failure, ESRD 5. staph aureus , Enterobacter pneumonia P 1. continue vancomycin iv, discontinue Cefepime 2. if diarrhea persist check C.difficile test Subjective ROS Limited/Unobtainable: Yes Gastrointestinal/Abdominal: Reports: diarrhea, other - last night Allergies: Coded Allergies: No Known Allergies (Unverified , 06/18/17) Objective Vital Signs Last 24 Hour Vital Signs Date Time Temp Pulse Resp B/P (MAP) Pulse Ox O2 Delivery O2 Flow Rate FiO2 07/06/17 09:00 98.4 108 40 122/72 99 T-piece 30 07/06/17 08:00 107 07/06/17 08:00 108 40 120/60 98 T-piece 30 07/06/17 08:00 30 07/06/17 08:00 Mechanical Ventilator 30 07/06/17 07:00 112 34 121/61 99 T-piece 30 07/06/17 06:36 97 T-piece 6.0 30 07/06/17 06:36 T-piece 6.0 30 07/06/17 06:00 114 33 118/60 95 T-piece 30 07/06/17 05:00 113 33 126/62 97 T-piece 30 07/06/17 04:00 30 07/06/17 04:00 98.2 113 32 131/66 98 T-piece 30 07/06/17 04:00 111 07/06/17 03:00 112 33 125/66 97 T-piece 30 07/06/17 02:00 112 22 125/66 97 T-piece 30 07/06/17 01:25 T-piece 6.0 30 07/06/17 01:25 95 T-piece 6.0 30 07/06/17 01:00 110 22 131/67 95 T-piece 30 07/06/17 00:00 98.3 112 27 134/76 93 T-piece 30 07/06/17 00:00 103 07/06/17 00:00 30 07/05/17 23:00 103 34 122/66 96 T-piece 30 07/05/17 22:00 100 30 120/68 94 T-piece 30 07/05/17 21:00 106 16 121/63 96 T-piece 30 07/05/17 20:00 30 07/05/17 20:00 98.2 103 33 120/56 93 T-piece 30 07/05/17 20:00 100 07/05/17 19:09 T-piece 6.0 30 07/05/17 19:09 99 T-piece 6.0 30 07/05/17 19:00 105 36 122/66 98 T-piece 30 07/05/17 18:00 111 38 133/74 98 T-piece 30 07/05/17 17:00 108 33 115/58 97 T-piece 30 07/05/17 16:00 106 07/05/17 16:00 98.6 107 33 116/67 100 T-piece 30 07/05/17 16:00 30 07/05/17 15:00 107 33 132/70 100 T-piece 30 07/05/17 14:58 30 07/05/17 14:00 108 36 120/77 99 T-piece 30 07/05/17 13:00 108 29 116/58 97 T-piece 30 07/05/17 12:46 30 07/05/17 12:45 96 T-piece 6.0 30 07/05/17 12:15 T-piece 6.0 30 07/05/17 12:00 104 07/05/17 12:00 98.4 104 38 128/62 98 T-piece 30 07/05/17 11:00 101 38 116/58 100 Mechanical Ventilator 30 07/05/17 10:48 104 33 30 07/05/17 10:26 30 07/05/17 10:00 99 30 126/62 100 Mechanical Ventilator 30 Height (Feet): 5 Height (Inches): 10.00 Weight (Pounds): 170 HEENT: other - orally intubated Respiratory/Chest: other - few rhonchi, on T bar Cardiovascular: tachycardia, other - left IJ HD line Abdomen: soft, non tender, other - orogastric tube Extremities: no edema Neurologic/Psychiatric: unresponsiveness Laboratory Tests Test 07/05/17 11:30 07/05/17 15:00 07/06/17 05:05 Arterial Blood pH 7.419 (7.350-7.450) 7.421 (7.350-7.450) Arterial Blood Partial Pressure CO2 33.1 mmHg (35.0-45.0) L 34.4 mmHg (35.0-45.0) L Arterial Blood Partial Pressure O2 111.3 mmHg (75.0-100.0) H 76.0 mmHg (75.0-100.0) Arterial Blood HCO3 20.9 mmol/L (22.0-26.0) L 21.9 mmol/L (22.0-26.0) L Arterial Blood Oxygen Saturation 97.8 % (92.0-98.0) 95.1 % (92.0-98.0) Arterial Blood Base Excess -3.0 -2.2 Jones Test Positive Positive White Blood Count 11.5 K/UL (4.8-10.8) H Red Blood Count 3.32 M/UL (4.70-6.10) L Hemoglobin 9.7 G/DL (14.2-18.0) L Hematocrit 30.1 % (42.0-52.0) L Mean Corpuscular Volume 91 FL (80-99) Mean Corpuscular Hemoglobin 29.3 PG (27.0-31.0) Mean Corpuscular Hemoglobin Concent 32.4 G/DL (32.0-36.0) Red Cell Distribution Width 19.2 % (11.6-14.8) H Platelet Count 397 K/UL (150-450) Mean Platelet Volume 6.4 FL (6.5-10.1) L Neutrophils (%) (Auto) 75.3 % (45.0-75.0) H Lymphocytes (%) (Auto) 14.2 % (20.0-45.0) L Monocytes (%) (Auto) 9.0 % (1.0-10.0) Eosinophils (%) (Auto) 1.0 % (0.0-3.0) Basophils (%) (Auto) 0.5 % (0.0-2.0) Sodium Level 140 MMOL/L (136-145) Potassium Level 4.4 MMOL/L (3.5-5.1) Chloride Level 106 MMOL/L (98-107) Carbon Dioxide Level 23 MMOL/L (21-32) Anion Gap 11 mmol/L (5-15) Blood Urea Nitrogen 56 mg/dL (7-18) H Creatinine 4.8 MG/DL (0.55-1.30) H Estimat Glomerular Filtration Rate mL/min (>60) Glucose Level 131 MG/DL (74-106) H Calcium Level 8.1 MG/DL (8.5-10.1) L Magnesium Level 2.1 MG/DL (1.8-2.4) Total Bilirubin 0.5 MG/DL (0.2-1.0) Aspartate Amino Transf (AST/SGOT) 74 U/L (15-37) H Alanine Aminotransferase (ALT/SGPT) 34 U/L (12-78) Alkaline Phosphatase 297 U/L (46-116) H Total Protein 6.9 G/DL (6.4-8.2) Albumin 1.2 G/DL (3.4-5.0) L Globulin 5.7 g/dL Albumin/Globulin Ratio 0.2 (1.0-2.7) L Current Medications Medications (Trade) Dose Ordered Sig/Jaime Route PRN Reason Start Time Stop Time Status Last Admin Dose Admin Acetaminophen (Tylenol) 650 mg Q4H PRN RECTAL Prn Headache/Temp > 101 06/18/17 21:00 07/18/17 20:59 06/20/17 12:42 Aspirin (ASA) 81 mg DAILY NG 06/19/17 19:00 07/19/17 18:59 07/06/17 09:02 Cefepime HCl 500 mg/Dextrose 55 ml @ 110 mls/hr QHS IVPB 07/05/17 21:00 07/12/17 20:59 07/05/17 20:36 Chlorhexidine Gluconate (Kati-Hex 2%) 1 applic Q24H TOPIC 06/19/17 20:00 07/19/17 19:59 07/05/17 20:34 Dextrose (Dextrose 50%) STAT PRN IV Hypoglycemia 06/19/17 13:00 07/19/17 12:59 06/23/17 05:35 Epoetin Russ (Procrit (for ESRD on dialysis)) 5,000 units MON-MON-MON SUBQ 06/21/17 21:00 07/21/17 20:59 07/05/17 20:37 Heparin Sodium (Porcine) (Heparin 5000 units/ml) 5,000 units EVERY 12 HOURS SUBQ 06/18/17 21:00 07/18/17 20:59 07/06/17 09:03 Heparin Sodium (Porcine) (Heparin Sod 1000 units/ml 10ml) 500 unit ONCE PRN IV HD USE 07/06/17 09:15 07/06/17 23:59 Insulin Aspart (NovoLOG) EVERY 6 HOURS SUBQ 06/19/17 18:00 07/19/17 17:59 07/06/17 05:51 Lansoprazole (Prevacid) 30 mg DAILY GT 06/19/17 09:00 07/19/17 08:59 07/06/17 09:02 Sodium Chloride 1,000 ml @ 500 mls/hr Q2H PRN IVLG sbp<90 during hd 06/27/17 11:09 07/27/17 11:08 Vancomycin HCl (Vanco rx to dose) 1 ea DAILY PRN MISC Per rx protocol 06/19/17 02:45 07/19/17 02:44 ZAIRA ROBLES Jul 06, 2017 10:04
--- NOTE | 2017-07-06 14:17 | Pulmonology Progress Note ---
Assessment/Plan Assessment/Plan 1. Respiratory failure. 2. Sepsis with shock. 3. Stroke with dementia and right hemiparesis. 4. Diabetes. pressor, titrate map greater than 65 mmhg still on vent, continue weaning; doing well nebs and suction abx per [facility] wound care CXR shows bilateral effusions (left greater than right) weaned down to T piece however uncooperative and unable to follow instructions I'm concerned about his ability to hold his airway therefore will leave endotracheal tube in place disc w RN pt is DNR Subjective Interval Events: weaned down to T piece. Constitutional: Reports: no symptoms HEENT: Repors: no symptoms Respiratory: Reports: no symptoms Cardiovascular: Reports: no symptoms Gastrointestinal/Abdominal: Reports: no symptoms Genitourinary: Reports: no symptoms Allergies: Coded Allergies: No Known Allergies (Unverified , 06/18/17) Objective Last 24 Hour Vital Signs Date Time Temp Pulse Resp B/P (MAP) Pulse Ox O2 Delivery O2 Flow Rate FiO2 07/06/17 14:00 108 36 99/52 98 T-piece 30 07/06/17 13:22 98 T-piece 6.0 30 07/06/17 13:22 T-piece 6.0 30 07/06/17 13:00 109 40 113/56 98 T-piece 30 07/06/17 12:00 98.4 106 39 98/49 98 T-piece 30 07/06/17 12:00 106 07/06/17 12:00 30 07/06/17 11:00 116 39 88/44 97 T-piece 30 07/06/17 11:00 Mechanical Ventilator 30 07/06/17 10:00 117 40 92/54 97 T-piece 30 07/06/17 09:00 98.4 108 40 122/72 99 T-piece 30 07/06/17 08:00 107 07/06/17 08:00 108 40 120/60 98 T-piece 30 07/06/17 08:00 30 07/06/17 08:00 Mechanical Ventilator 30 07/06/17 07:00 112 34 121/61 99 T-piece 30 07/06/17 06:36 97 T-piece 6.0 30 07/06/17 06:36 T-piece 6.0 30 07/06/17 06:00 114 33 118/60 95 T-piece 30 07/06/17 05:00 113 33 126/62 97 T-piece 30 07/06/17 04:00 30 07/06/17 04:00 98.2 113 32 131/66 98 T-piece 30 07/06/17 04:00 111 07/06/17 03:00 112 33 125/66 97 T-piece 30 07/06/17 02:00 112 22 125/66 97 T-piece 30 07/06/17 01:25 T-piece 6.0 30 07/06/17 01:25 95 T-piece 6.0 30 07/06/17 01:00 110 22 131/67 95 T-piece 30 07/06/17 00:00 98.3 112 27 134/76 93 T-piece 30 07/06/17 00:00 103 07/06/17 00:00 30 07/05/17 23:00 103 34 122/66 96 T-piece 30 07/05/17 22:00 100 30 120/68 94 T-piece 30 07/05/17 21:00 106 16 121/63 96 T-piece 30 07/05/17 20:00 30 07/05/17 20:00 98.2 103 33 120/56 93 T-piece 30 07/05/17 20:00 100 07/05/17 19:09 T-piece 6.0 30 07/05/17 19:09 99 T-piece 6.0 30 07/05/17 19:00 105 36 122/66 98 T-piece 30 07/05/17 18:00 111 38 133/74 98 T-piece 30 07/05/17 17:00 108 33 115/58 97 T-piece 30 07/05/17 16:00 106 07/05/17 16:00 98.6 107 33 116/67 100 T-piece 30 07/05/17 16:00 30 07/05/17 15:00 107 33 132/70 100 T-piece 30 07/05/17 14:58 30 Intake and Output 07/05/17 07/06/17 19:00 07:00 Intake Total 540 ml 535 ml Balance 540 ml 535 ml IV Total 55 ml Tube Feeding 480 ml 480 ml Other 60 ml # Bowel Movements 1 4 General Appearance: no acute distress HEENT: normocephalic Respiratory/Chest: chest wall non-tender, lungs clear Cardiovascular: normal peripheral pulses, normal rate Abdomen: normal bowel sounds, soft, non tender Neurologic/Psychiatric: other - lethargic, does not fllow commands. Laboratory Tests 07/05/17 15:00: Arterial Blood pH 7.421, Arterial Blood Partial Pressure CO2 34.4L, Arterial Blood Partial Pressure O2 76.0, Arterial Blood HCO3 21.9L, Arterial Blood Oxygen Saturation 95.1, Arterial Blood Base Excess -2.2, Jones Test Positive 07/06/17 05:05: White Blood Count 11.5H, Red Blood Count 3.32L, Hemoglobin 9.7L, Hematocrit 30.1L, Mean Corpuscular Volume 91, Mean Corpuscular Hemoglobin 29.3, Mean Corpuscular Hemoglobin Concent 32.4, Red Cell Distribution Width 19.2H, Platelet Count 397, Mean Platelet Volume 6.4L, Neutrophils (%) (Auto) 75.3H, Lymphocytes (%) (Auto) 14.2L, Monocytes (%) (Auto) 9.0, Eosinophils (%) (Auto) 1.0, Basophils (%) (Auto) 0.5, Sodium Level 140, Potassium Level 4.4, Chloride Level 106, Carbon Dioxide Level 23, Anion Gap 11, Blood Urea Nitrogen 56H, Creatinine 4.8H, Estimat Glomerular Filtration Rate , Glucose Level 131H, Calcium Level 8.1L, Magnesium Level 2.1, Total Bilirubin 0.5, Aspartate Amino Transf (AST/SGOT) 74H, Alanine Aminotransferase (ALT/SGPT) 34, Alkaline Phosphatase 297H, Total Protein 6.9, Albumin 1.2L, Globulin 5.7, Albumin/ Globulin Ratio 0.2L 07/06/17 11:10: Arterial Blood pH 7.480H, Arterial Blood Partial Pressure CO2 32.7L, Arterial Blood Partial Pressure O2 67.4L, Arterial Blood HCO3 24.0, Arterial Blood Oxygen Saturation 93.7, Arterial Blood Base Excess 0.9, Jones Test Positive Current Medications Medications (Trade) Dose Ordered Sig/Jaime Route PRN Reason Start Time Stop Time Status Last Admin Dose Admin Acetaminophen (Tylenol) 650 mg Q4H PRN RECTAL Prn Headache/Temp > 101 06/18/17 21:00 07/18/17 20:59 06/20/17 12:42 Aspirin (ASA) 81 mg DAILY NG 06/19/17 19:00 07/19/17 18:59 07/06/17 09:02 Chlorhexidine Gluconate (Kati-Hex 2%) 1 applic Q24H TOPIC 06/19/17 20:00 07/19/17 19:59 07/05/17 20:34 Dextrose (Dextrose 50%) STAT PRN IV Hypoglycemia 06/19/17 13:00 07/19/17 12:59 06/23/17 05:35 Epoetin Russ (Procrit (for ESRD on dialysis)) 5,000 units MON-MON-MON SUBQ 06/21/17 21:00 07/21/17 20:59 07/05/17 20:37 Heparin Sodium (Porcine) (Heparin 5000 units/ml) 5,000 units EVERY 12 HOURS SUBQ 06/18/17 21:00 07/18/17 20:59 07/06/17 09:03 Heparin Sodium (Porcine) (Heparin Sod 1000 units/ml 10ml) 500 unit ONCE PRN IV HD USE 07/06/17 09:15 07/06/17 23:59 Insulin Aspart (NovoLOG) EVERY 6 HOURS SUBQ 06/19/17 18:00 07/19/17 17:59 07/06/17 05:51 Lansoprazole (Prevacid) 30 mg DAILY GT 06/19/17 09:00 07/19/17 08:59 07/06/17 09:02 Sodium Chloride 1,000 ml @ 500 mls/hr Q2H PRN IVLG sbp<90 during hd 06/27/17 11:09 07/27/17 11:08 Vancomycin HCl (Vanco rx to dose) 1 ea DAILY PRN MISC Per rx protocol 06/19/17 02:45 07/19/17 02:44 Steven Olmos MD Jul 06, 2017 14:17
--- NOTE | 2017-07-06 17:45 | General Progress Note ---
Assessment/Plan Problem List: (1) Catheter-related bloodstream infection ICD Codes: T80.211A - Bloodstream infection due to central venous catheter, initial encounter SNOMED: 842591840 (2) Renal failure ICD Codes: N19 - Unspecified kidney failure SNOMED: 69997475 (3) Septic shock ICD Codes: A41.9 - Sepsis, unspecified organism; R65.21 - Severe sepsis with septic shock SNOMED: 19551446 (4) Respiratory failure ICD Codes: J96.90 - Respiratory failure, unspecified, unspecified whether with hypoxia or hypercapnia SNOMED: 274517066 (5) Malnutrition of moderate degree ICD Codes: E44.0 - Moderate protein-calorie malnutrition SNOMED: 932040104 (6) End-stage renal disease ICD Codes: N18.6 - End stage renal disease SNOMED: 43159593 (7) Healthcare-associated pneumonia ICD Codes: J18.9 - Pneumonia, unspecified organism SNOMED: 223317294 Status: stable, progressing Assessment/Plan cont iv abx HD as tolerated. wean vent as able resp rx feeds dvt/stress ulcer prophyalxi monitor h/h transfuse as needed epo/iron critical and guarded dnr Subjective ROS Limited/Unobtainable: Yes Constitutional: Reports: malaise, weakness HEENT: Reports: no symptoms Cardiovascular: Reports: no symptoms Respiratory: Reports: no symptoms Gastrointestinal/Abdominal: Reports: difficulty swallowing Genitourinary: Reports: no symptoms Neurologic/Psychiatric: Reports: pre-existing deficit Endocrine: Reports: no symptoms Hematologic/Lymphatic: Reports: no symptoms Allergies: Coded Allergies: No Known Allergies (Unverified , 06/18/17) All Systems: reviewed and negative except above Subjective remains intubated. much more alert. tracks. no secretion or congestion. tolerating weaning. on HD. no overnite events per RN Objective Last 24 Hour Vital Signs Date Time Temp Pulse Resp B/P (MAP) Pulse Ox O2 Delivery O2 Flow Rate FiO2 07/06/17 16:00 98.4 106 33 96/54 97 T-piece 30 07/06/17 16:00 106 07/06/17 16:00 30 07/06/17 15:00 107 35 95/50 97 T-piece 30 07/06/17 14:00 108 36 99/52 98 T-piece 30 07/06/17 13:22 98 T-piece 6.0 30 07/06/17 13:22 T-piece 6.0 30 07/06/17 13:00 109 40 113/56 98 T-piece 30 07/06/17 12:00 98.4 106 39 98/49 98 T-piece 30 07/06/17 12:00 106 07/06/17 12:00 30 07/06/17 11:00 116 39 88/44 97 T-piece 30 07/06/17 11:00 Mechanical Ventilator 30 07/06/17 10:00 117 40 92/54 97 T-piece 30 07/06/17 09:00 98.4 108 40 122/72 99 T-piece 30 07/06/17 08:00 107 07/06/17 08:00 108 40 120/60 98 T-piece 30 07/06/17 08:00 30 07/06/17 08:00 Mechanical Ventilator 30 07/06/17 07:00 112 34 121/61 99 T-piece 30 07/06/17 06:36 97 T-piece 6.0 30 07/06/17 06:36 T-piece 6.0 30 07/06/17 06:00 114 33 118/60 95 T-piece 30 07/06/17 05:00 113 33 126/62 97 T-piece 30 07/06/17 04:00 30 07/06/17 04:00 98.2 113 32 131/66 98 T-piece 30 07/06/17 04:00 111 07/06/17 03:00 112 33 125/66 97 T-piece 30 07/06/17 02:00 112 22 125/66 97 T-piece 30 07/06/17 01:25 T-piece 6.0 30 07/06/17 01:25 95 T-piece 6.0 30 07/06/17 01:00 110 22 131/67 95 T-piece 30 07/06/17 00:00 98.3 112 27 134/76 93 T-piece 30 07/06/17 00:00 103 07/06/17 00:00 30 07/05/17 23:00 103 34 122/66 96 T-piece 30 07/05/17 22:00 100 30 120/68 94 T-piece 30 07/05/17 21:00 106 16 121/63 96 T-piece 30 07/05/17 20:00 30 07/05/17 20:00 98.2 103 33 120/56 93 T-piece 30 07/05/17 20:00 100 07/05/17 19:09 T-piece 6.0 30 07/05/17 19:09 99 T-piece 6.0 30 07/05/17 19:00 105 36 122/66 98 T-piece 30 07/05/17 18:00 111 38 133/74 98 T-piece 30 Intake and Output 07/05/17 07/06/17 19:00 07:00 Intake Total 540 ml 535 ml Balance 540 ml 535 ml IV Total 55 ml Tube Feeding 480 ml 480 ml Other 60 ml # Bowel Movements 1 4 Laboratory Tests 07/06/17 05:05: White Blood Count 11.5H, Red Blood Count 3.32L, Hemoglobin 9.7L, Hematocrit 30.1L, Mean Corpuscular Volume 91, Mean Corpuscular Hemoglobin 29.3, Mean Corpuscular Hemoglobin Concent 32.4, Red Cell Distribution Width 19.2H, Platelet Count 397, Mean Platelet Volume 6.4L, Neutrophils (%) (Auto) 75.3H, Lymphocytes (%) (Auto) 14.2L, Monocytes (%) (Auto) 9.0, Eosinophils (%) (Auto) 1.0, Basophils (%) (Auto) 0.5, Sodium Level 140, Potassium Level 4.4, Chloride Level 106, Carbon Dioxide Level 23, Anion Gap 11, Blood Urea Nitrogen 56H, Creatinine 4.8H, Estimat Glomerular Filtration Rate , Glucose Level 131H, Calcium Level 8.1L, Magnesium Level 2.1, Total Bilirubin 0.5, Aspartate Amino Transf (AST/SGOT) 74H, Alanine Aminotransferase (ALT/SGPT) 34, Alkaline Phosphatase 297H, Total Protein 6.9, Albumin 1.2L, Globulin 5.7, Albumin/ Globulin Ratio 0.2L 07/06/17 11:10: Arterial Blood pH 7.480H, Arterial Blood Partial Pressure CO2 32.7L, Arterial Blood Partial Pressure O2 67.4L, Arterial Blood HCO3 24.0, Arterial Blood Oxygen Saturation 93.7, Arterial Blood Base Excess 0.9, Jones Test Positive Height (Feet): 5 Height (Inches): 10.00 Weight (Pounds): 170 Objective General Appearance: WD/WN, lethargic, confused Neck: supple Cardiovascular: regular rhythm Respiratory/Chest: chest wall non-tender, lungs clear, normal breath sounds, no respiratory distress Abdomen: normal bowel sounds, non tender, soft, no organomegaly, no mass Edema: no edema noted Arm (L), no edema noted Arm (R), no edema noted Leg (L), no edema noted Leg (R), no edema noted Pedal (L), no edema noted Pedal (R), no edema noted Generalized Neurologic: more alert, aphasia KEENA BRANDT Jul 06, 2017 17:45
[2017-07-06] MEDS: Dyna-Hex 2% Top Sol 2oz TOPIC SCH (20:01)
[2017-07-07] VITALS (24 sets, daily range): BP systolic 99–131; BP diastolic 52–71
[2017-07-07] MEDS: NovoLOG Insulin Flexpen SUBQ SCH ×4 (00:01→17:17)
--- NOTE | 2017-07-07 04:47 | Progress Note ---
DATE: 07/06/2017 SUBJECTIVE: The patient remains on ventilator support. Weaning efforts are ongoing. The patient is more alert. He is dependent on hemodialysis with ultrafiltration with end-stage renal disease. He is recovering from line sepsis. He continues to have critical condition with guarded prognosis. OBJECTIVE: LUNGS: Coarse breath sounds. Scattered rhonchi. HEART: Regular rhythm and rate. Normal S1, S2. ABDOMEN: Soft. EXTREMITIES: Trace edema. SKIN: Catheter site is clean and dry. IMPRESSION: 1. Line sepsis. 2. Shock. 3. Acute myocardial infarction. 4. Acute and chronic diastolic congestive heart failure. 5. End-stage renal disease. 6. Respiratory failure. 7. Dementia. 8. Metabolic and toxic encephalopathies, improving. 9. Anemia, multifactorial. PLAN: 1. Weaning efforts. 2. Antimicrobials. 3. Transfuse for hemoglobin less than 8 g. 4. Nutritional support by feeding tube. 5. Hemodialysis with ultrafiltration for volume management. 6. Maximize anti-failure therapy. 7. No resumption of pressors. Lili Mccarty JOB#: [id number] CC:
--- NOTE | 2017-07-07 09:00 | Nephrology Progress Note ---
Assessment/Plan Problem List: (1) Healthcare-associated pneumonia (2) Malnutrition of moderate degree (3) End-stage renal disease (4) Respiratory failure (5) Septic shock Plan , meds reviewed for eskd,hypotension, mrsa sepsis, he isunable to sign as critically ill, hd via new cath 06/27 , flow variable observe hd 06/29,remains on pressors--off 06/30 am, hd 07/01 +07/04 still low-nl bp , unresponsive, poor prognosis hd 07/06next 07/08 Subjective ROS Limited/Unobtainable: Yes Objective Objective Last 24 Hour Vital Signs Date Time Temp Pulse Resp B/P (MAP) Pulse Ox O2 Delivery O2 Flow Rate FiO2 07/07/17 08:00 98.4 107 27 108/55 99 T-piece 30 07/07/17 08:00 111 07/07/17 08:00 30 07/07/17 07:00 106 36 105/55 100 T-piece 30 07/07/17 06:50 99 T-piece 8.0 30 07/07/17 06:50 T-piece 8.0 30 07/07/17 06:00 108 34 113/59 100 T-piece 30 07/07/17 05:00 110 28 115/59 100 T-piece 30 07/07/17 04:00 30 07/07/17 04:00 110 07/07/17 04:00 98.4 108 36 131/68 100 T-piece 30 07/07/17 03:00 103 33 121/62 100 T-piece 30 07/07/17 02:00 108 36 101/55 100 T-piece 30 07/07/17 01:04 T-piece 6.0 30 07/07/17 01:03 93 T-piece 6.0 30 07/07/17 01:00 105 28 112/58 100 T-piece 30 07/07/17 00:00 30 07/07/17 00:00 104 07/07/17 00:00 98.4 102 30 109/55 97 T-piece 30 07/06/17 23:00 105 35 114/57 94 T-piece 30 07/06/17 22:00 101 29 112/58 93 T-piece 30 07/06/17 21:00 104 30 116/60 94 T-piece 30 07/06/17 20:00 105 07/06/17 20:00 30 07/06/17 20:00 98.3 108 36 103/52 100 T-piece 30 07/06/17 19:01 T-piece 6.0 30 07/06/17 19:01 97 T-piece 6.0 30 07/06/17 19:00 105 29 90/44 100 T-piece 30 07/06/17 18:00 107 33 90/44 100 T-piece 30 07/06/17 17:00 110 35 99/51 100 T-piece 30 07/06/17 16:00 98.4 106 33 96/54 97 T-piece 30 07/06/17 16:00 106 07/06/17 16:00 30 07/06/17 15:00 107 35 95/50 97 T-piece 30 07/06/17 14:00 108 36 99/52 98 T-piece 30 07/06/17 13:22 98 T-piece 6.0 30 07/06/17 13:22 T-piece 6.0 30 07/06/17 13:00 109 40 113/56 98 T-piece 30 07/06/17 12:00 98.4 106 39 98/49 98 T-piece 30 07/06/17 12:00 106 07/06/17 12:00 30 07/06/17 11:00 116 39 88/44 97 T-piece 30 07/06/17 11:00 Mechanical Ventilator 30 07/06/17 10:00 117 40 92/54 97 T-piece 30 07/06/17 09:00 98.4 108 40 122/72 99 T-piece 30 Intake and Output 07/06/17 07/07/17 19:00 07:00 Intake Total 360 ml 480 ml Output Total 1000 ml Balance -640 ml 480 ml Tube Feeding 360 ml 480 ml Hemodialysis UF 1000 ml # Bowel Movements 2 Laboratory Tests 07/06/17 11:10: Arterial Blood pH 7.480H, Arterial Blood Partial Pressure CO2 32.7L, Arterial Blood Partial Pressure O2 67.4L, Arterial Blood HCO3 24.0, Arterial Blood Oxygen Saturation 93.7, Arterial Blood Base Excess 0.9, Jones Test Positive Height (Feet): 5 Height (Inches): 10.00 Weight (Pounds): 172 General Appearance: lethargic EENT: normal ENT inspection Neck: normal alignment Cardiovascular: regular rhythm, tachycardia Respiratory/Chest: rhonchi - bilaterally Abdomen: non tender Extremities: moderate edema Neurologic: unresponsive LEONORA HUI Jul 07, 2017 08:59
[2017-07-07] MEDS: Aspirin Baby 81mg NG SCH (09:12)
[2017-07-07] MEDS: Heparin 5000 units/ml inj SUBQ SCH ×2 (09:13→20:52)
[2017-07-07] MEDS: Albuterol/Ipratropium 3ml neb HHN SCH ×3 (10:43→19:40)
--- NOTE | 2017-07-07 10:54 | General Progress Note ---
Assessment/Plan Problem List: (1) Catheter-related bloodstream infection ICD Codes: T80.211A - Bloodstream infection due to central venous catheter, initial encounter SNOMED: 024036482 (2) Renal failure ICD Codes: N19 - Unspecified kidney failure SNOMED: 34399527 (3) Septic shock ICD Codes: A41.9 - Sepsis, unspecified organism; R65.21 - Severe sepsis with septic shock SNOMED: 09282842 (4) Respiratory failure ICD Codes: J96.90 - Respiratory failure, unspecified, unspecified whether with hypoxia or hypercapnia SNOMED: 574133781 (5) Malnutrition of moderate degree ICD Codes: E44.0 - Moderate protein-calorie malnutrition SNOMED: 048141493 (6) End-stage renal disease ICD Codes: N18.6 - End stage renal disease SNOMED: 46920496 (7) Healthcare-associated pneumonia ICD Codes: J18.9 - Pneumonia, unspecified organism SNOMED: 522505158 Status: stable Assessment/Plan cont iv abx HD as tolerated resp rx feeds check swallow dvt/stress ulcer prophyalxi monitor h/h transfuse as needed epo/iron critical and guarded dnr Subjective ROS Limited/Unobtainable: No Constitutional: Reports: malaise, weakness HEENT: Reports: no symptoms Cardiovascular: Reports: no symptoms Respiratory: Reports: cough Gastrointestinal/Abdominal: Reports: no symptoms Genitourinary: Reports: no symptoms Neurologic/Psychiatric: Reports: pre-existing deficit Endocrine: Reports: no symptoms Hematologic/Lymphatic: Reports: no symptoms Allergies: Coded Allergies: No Known Allergies (Unverified , 06/18/17) All Systems: reviewed and negative except above Subjective just extubated. alert. tracks. no secretion or congestion. no distress Objective Last 24 Hour Vital Signs Date Time Temp Pulse Resp B/P (MAP) Pulse Ox O2 Delivery O2 Flow Rate FiO2 07/07/17 10:46 109 27 99 Nasal Cannula 2.0 07/07/17 10:15 99 Nasal Cannula 2.0 28 07/07/17 10:15 Nasal Cannula 2.0 28 07/07/17 10:10 Nasal Cannula 2.0 28 07/07/17 08:00 98.4 107 27 108/55 99 T-piece 30 07/07/17 08:00 111 07/07/17 08:00 30 07/07/17 07:00 106 36 105/55 100 T-piece 30 07/07/17 06:50 99 T-piece 8.0 30 07/07/17 06:50 T-piece 8.0 30 07/07/17 06:00 108 34 113/59 100 T-piece 30 07/07/17 05:00 110 28 115/59 100 T-piece 30 07/07/17 04:00 30 07/07/17 04:00 110 07/07/17 04:00 98.4 108 36 131/68 100 T-piece 30 07/07/17 03:00 103 33 121/62 100 T-piece 30 07/07/17 02:00 108 36 101/55 100 T-piece 30 07/07/17 01:04 T-piece 6.0 30 07/07/17 01:03 93 T-piece 6.0 30 07/07/17 01:00 105 28 112/58 100 T-piece 30 07/07/17 00:00 30 07/07/17 00:00 104 07/07/17 00:00 98.4 102 30 109/55 97 T-piece 30 07/06/17 23:00 105 35 114/57 94 T-piece 30 07/06/17 22:00 101 29 112/58 93 T-piece 30 07/06/17 21:00 104 30 116/60 94 T-piece 30 07/06/17 20:00 105 07/06/17 20:00 30 07/06/17 20:00 98.3 108 36 103/52 100 T-piece 30 07/06/17 19:01 T-piece 6.0 30 07/06/17 19:01 97 T-piece 6.0 30 07/06/17 19:00 105 29 90/44 100 T-piece 30 07/06/17 18:00 107 33 90/44 100 T-piece 30 07/06/17 17:00 110 35 99/51 100 T-piece 30 07/06/17 16:00 98.4 106 33 96/54 97 T-piece 30 07/06/17 16:00 106 07/06/17 16:00 30 07/06/17 15:00 107 35 95/50 97 T-piece 30 07/06/17 14:00 108 36 99/52 98 T-piece 30 07/06/17 13:22 98 T-piece 6.0 30 07/06/17 13:22 T-piece 6.0 30 07/06/17 13:00 109 40 113/56 98 T-piece 30 07/06/17 12:00 98.4 106 39 98/49 98 T-piece 30 07/06/17 12:00 106 07/06/17 12:00 30 07/06/17 11:00 116 39 88/44 97 T-piece 30 07/06/17 11:00 Mechanical Ventilator 30 Intake and Output 07/06/17 07/07/17 19:00 07:00 Intake Total 360 ml 480 ml Output Total 1000 ml Balance -640 ml 480 ml Tube Feeding 360 ml 480 ml Hemodialysis UF 1000 ml # Bowel Movements 2 Laboratory Tests 07/06/17 11:10: Arterial Blood pH 7.480H, Arterial Blood Partial Pressure CO2 32.7L, Arterial Blood Partial Pressure O2 67.4L, Arterial Blood HCO3 24.0, Arterial Blood Oxygen Saturation 93.7, Arterial Blood Base Excess 0.9, Jones Test Positive Height (Feet): 5 Height (Inches): 10.00 Weight (Pounds): 172 Objective General Appearance: WD/WN, alert, confused Neck: supple Cardiovascular: regular rhythm Respiratory/Chest: chest wall non-tender, lungs clear, normal breath sounds, no respiratory distress Abdomen: normal bowel sounds, non tender, soft, no organomegaly, no mass Edema: no edema noted Arm (L), no edema noted Arm (R), no edema noted Leg (L), no edema noted Leg (R), no edema noted Pedal (L), no edema noted Pedal (R), no edema noted Generalized Neurologic: more alert, aphasia KEENA BRANDT Jul 07, 2017 10:54
--- NOTE | 2017-07-07 12:34 | Infectious Diseases Prog Note ---
"Assessment/Plan Assessment/Plan antibiotics : vancomycin iv A 1. MRSA sepsis s/p catheter removal 2. septic shock 3. respiratory failure resolved 4. renal failure 5. MRSA | enterobacter pneumonia 6. leucocytosis improving P 1. continue vancomycin iv 9 more days 2. will follow up cultures Subjective ROS Limited/Unobtainable: Yes Allergies: Coded Allergies: No Known Allergies (Unverified , 06/18/17) Objective Vital Signs Last 24 Hour Vital Signs Date Time Temp Pulse Resp B/P (MAP) Pulse Ox O2 Delivery O2 Flow Rate FiO2 07/07/17 12:00 98.2 108 37 105/53 100 Nasal Cannula 2.0 07/07/17 12:00 107 07/07/17 11:00 109 36 115/57 100 Nasal Cannula 2.0 07/07/17 10:59 106 28 99 Nasal Cannula 2.0 28 07/07/17 10:46 109 27 99 Nasal Cannula 2.0 07/07/17 10:15 99 Nasal Cannula 2.0 28 07/07/17 10:15 Nasal Cannula 2.0 28 07/07/17 10:10 Nasal Cannula 2.0 28 07/07/17 10:00 105 29 110/55 100 T-piece 30 07/07/17 09:00 113 37 113/71 100 T-piece 30 07/07/17 08:00 98.4 107 27 108/55 99 T-piece 30 07/07/17 08:00 111 07/07/17 08:00 30 07/07/17 07:00 106 36 105/55 100 T-piece 30 07/07/17 06:50 99 T-piece 8.0 30 07/07/17 06:50 T-piece 8.0 30 07/07/17 06:00 108 34 113/59 100 T-piece 30 07/07/17 05:00 110 28 115/59 100 T-piece 30 07/07/17 04:00 30 07/07/17 04:00 110 07/07/17 04:00 98.4 108 36 131/68 100 T-piece 30 07/07/17 03:00 103 33 121/62 100 T-piece 30 07/07/17 02:00 108 36 101/55 100 T-piece 30 07/07/17 01:04 T-piece 6.0 30 07/07/17 01:03 93 T-piece 6.0 30 07/07/17 01:00 105 28 112/58 100 T-piece 30 07/07/17 00:00 30 07/07/17 00:00 104 07/07/17 00:00 98.4 102 30 109/55 97 T-piece 30 07/06/17 23:00 105 35 114/57 94 T-piece 30 07/06/17 22:00 101 29 112/58 93 T-piece 30 07/06/17 21:00 104 30 116/60 94 T-piece 30 07/06/17 20:00 105 07/06/17 20:00 30 07/06/17 20:00 98.3 108 36 103/52 100 T-piece 30 07/06/17 19:01 T-piece 6.0 30 07/06/17 19:01 97 T-piece 6.0 30 07/06/17 19:00 105 29 90/44 100 T-piece 30 07/06/17 18:00 107 33 90/44 100 T-piece 30 07/06/17 17:00 110 35 99/51 100 T-piece 30 07/06/17 16:00 98.4 106 33 96/54 97 T-piece 30 07/06/17 16:00 106 07/06/17 16:00 30 07/06/17 15:00 107 35 95/50 97 T-piece 30 07/06/17 14:00 108 36 99/52 98 T-piece 30 07/06/17 13:22 98 T-piece 6.0 30 07/06/17 13:22 T-piece 6.0 30 07/06/17 13:00 109 40 113/56 98 T-piece 30 Height (Feet): 5 Height (Inches): 10.00 Weight (Pounds): 172 HEENT: other - intubated Respiratory/Chest: lungs clear Cardiovascular: normal rate, regular rhythm, no gallop/murmur Abdomen: soft, non tender Extremities: no edema, other - left IJ catheter ARTIS SANTIAGO Jul 07, 2017 12:34"
--- NOTE | 2017-07-07 12:42 | Pulmonology Progress Note ---
Assessment/Plan Assessment/Plan 1. Respiratory failure. 2. Sepsis with shock. 3. Dialysis catheter sepsis 4. Stroke with dementia and right hemiparesis. 5. Diabetes. off pressors on HD off vent on T tube nebs and suction abx per id disc w RN doing better will extubate DNR/DNI HHN O2 Subjective ROS Limited/Unobtainable: Yes Constitutional: Reports: no symptoms Allergies: Coded Allergies: No Known Allergies (Unverified , 06/18/17) Objective Last 24 Hour Vital Signs Date Time Temp Pulse Resp B/P (MAP) Pulse Ox O2 Delivery O2 Flow Rate FiO2 07/07/17 12:00 98.2 108 37 105/53 100 Nasal Cannula 2.0 07/07/17 12:00 107 07/07/17 11:00 109 36 115/57 100 Nasal Cannula 2.0 07/07/17 10:59 106 28 99 Nasal Cannula 2.0 28 07/07/17 10:46 109 27 99 Nasal Cannula 2.0 07/07/17 10:15 99 Nasal Cannula 2.0 28 07/07/17 10:15 Nasal Cannula 2.0 28 07/07/17 10:10 Nasal Cannula 2.0 28 07/07/17 10:00 105 29 110/55 100 T-piece 30 07/07/17 09:00 113 37 113/71 100 T-piece 30 07/07/17 08:00 98.4 107 27 108/55 99 T-piece 30 07/07/17 08:00 111 07/07/17 08:00 30 07/07/17 07:00 106 36 105/55 100 T-piece 30 07/07/17 06:50 99 T-piece 8.0 30 07/07/17 06:50 T-piece 8.0 30 07/07/17 06:00 108 34 113/59 100 T-piece 30 07/07/17 05:00 110 28 115/59 100 T-piece 30 07/07/17 04:00 30 07/07/17 04:00 110 07/07/17 04:00 98.4 108 36 131/68 100 T-piece 30 07/07/17 03:00 103 33 121/62 100 T-piece 30 07/07/17 02:00 108 36 101/55 100 T-piece 30 07/07/17 01:04 T-piece 6.0 30 07/07/17 01:03 93 T-piece 6.0 30 07/07/17 01:00 105 28 112/58 100 T-piece 30 07/07/17 00:00 30 07/07/17 00:00 104 07/07/17 00:00 98.4 102 30 109/55 97 T-piece 30 07/06/17 23:00 105 35 114/57 94 T-piece 30 07/06/17 22:00 101 29 112/58 93 T-piece 30 07/06/17 21:00 104 30 116/60 94 T-piece 30 07/06/17 20:00 105 07/06/17 20:00 30 07/06/17 20:00 98.3 108 36 103/52 100 T-piece 30 07/06/17 19:01 T-piece 6.0 30 07/06/17 19:01 97 T-piece 6.0 30 07/06/17 19:00 105 29 90/44 100 T-piece 30 07/06/17 18:00 107 33 90/44 100 T-piece 30 07/06/17 17:00 110 35 99/51 100 T-piece 30 07/06/17 16:00 98.4 106 33 96/54 97 T-piece 30 07/06/17 16:00 106 07/06/17 16:00 30 07/06/17 15:00 107 35 95/50 97 T-piece 30 07/06/17 14:00 108 36 99/52 98 T-piece 30 07/06/17 13:22 98 T-piece 6.0 30 07/06/17 13:22 T-piece 6.0 30 07/06/17 13:00 109 40 113/56 98 T-piece 30 Intake and Output 07/06/17 07/07/17 19:00 07:00 Intake Total 360 ml 480 ml Output Total 1000 ml Balance -640 ml 480 ml Tube Feeding 360 ml 480 ml Hemodialysis UF 1000 ml # Bowel Movements 2 General Appearance: no acute distress HEENT: atraumatic Respiratory/Chest: rhonchi Cardiovascular: normal rate Current Medications Medications (Trade) Dose Ordered Sig/Jaime Route PRN Reason Start Time Stop Time Status Last Admin Dose Admin Acetaminophen (Tylenol) 650 mg Q4H PRN RECTAL Prn Headache/Temp > 101 06/18/17 21:00 07/18/17 20:59 06/20/17 12:42 Albuterol/ Ipratropium (Albuterol/ Ipratropium) 3 ml Q4HRT HHN 07/07/17 11:00 07/12/17 10:59 07/07/17 10:43 Aspirin (ASA) 81 mg DAILY NG 06/19/17 19:00 07/19/17 18:59 07/07/17 09:12 Chlorhexidine Gluconate (Kati-Hex 2%) 1 applic Q24H TOPIC 06/19/17 20:00 07/19/17 19:59 07/06/17 20:01 Dextrose (Dextrose 50%) STAT PRN IV Hypoglycemia 06/19/17 13:00 07/19/17 12:59 06/23/17 05:35 Epoetin Russ (Procrit (for ESRD on dialysis)) 5,000 units MON-MON-MON SUBQ 06/21/17 21:00 07/21/17 20:59 07/05/17 20:37 Heparin Sodium (Porcine) (Heparin 5000 units/ml) 5,000 units EVERY 12 HOURS SUBQ 06/18/17 21:00 07/18/17 20:59 07/07/17 09:13 Insulin Aspart (NovoLOG) EVERY 6 HOURS SUBQ 06/19/17 18:00 07/19/17 17:59 07/07/17 05:56 Lansoprazole (Prevacid) 30 mg DAILY GT 06/19/17 09:00 07/19/17 08:59 07/07/17 09:12 Sodium Chloride 1,000 ml @ 500 mls/hr Q2H PRN IVLG sbp<90 during hd 06/27/17 11:09 07/27/17 11:08 Vancomycin HCl (Vanco rx to dose) 1 ea DAILY PRN MISC Per rx protocol 06/19/17 02:45 07/19/17 02:44 PEG MARTNIEZ Jul 07, 2017 12:42
--- NOTE | 2017-07-07 18:25 | Diagnostic Imaging Report ---
Indication: NG tube placement Technique: XRAY Abdomen 1v Comparison: 07/04/2017 Findings: NG tube is malpositioned, coursing to the right the chest. This may be within the lungs. Removal and replacement is recommended. This was discussed with the patient's treating nurse via telephone conversation. Bowel gas pattern is nonobstructive. Degenerative changes noted in the spine. Impression: Malpositioned NG tube, projecting over the right chest and possibly within a right-sided airway. Nasogastric tube should be removed and repositioned. This was discussed with the patient is treating ICU nurse via telephone conversation.
[2017-07-07] MEDS: Dyna-Hex 2% Top Sol 2oz TOPIC SCH (19:44)
[2017-07-07] MEDS: Epogen (for ESRD on dialysis) SUBQ SCH (20:49)
[2017-07-08] VITALS (17 sets, daily range): BP systolic 99–140; BP diastolic 53–83
[2017-07-08] MEDS: Albuterol/Ipratropium 3ml neb HHN SCH ×7 (00:15→23:28)
--- NOTE | 2017-07-08 01:15 | Progress Note ---
DATE: 07/07/2017 CARDIOLOGY PROGRESS NOTE SUBJECTIVE: The patient is off pressors. He is being extubated today having been on a T-tube for a couple of days. OBJECTIVE: VITAL SIGNS: Blood pressure 105/53, pulse 108, respiratory rate 37 and afebrile. GENERAL: Sinus tachycardia, alert. LUNGS: Coarse breath sounds. HEART: Regular rhythm and rapid rate. Normal S1 and S2. ABDOMEN: Soft. EXTREMITIES: No edema. IMPRESSION: 1. Respiratory failure. 2. Healthcare-acquired pneumonia. 3. Status post shock due to line sepsis. 4. End-stage renal disease. 5. Secondary sinus tachycardia. 6. Acute myocardial infarction. PLAN: 1. Extubation. 2. Respiratory hygiene. 3. Avoid excessive beta-agonist therapy at present. 4. Hemodialysis with ultrafiltration for volume management. 5. Nutrition by feeding tube. 6. Aspiration precautions. 7. Do Not Resuscitate/Do Not Intubate. Gurdeep Harvey M.D. DR: TIFFANIE JOB#: [id number] CC:
[2017-07-08] MEDS: NovoLOG Insulin Flexpen SUBQ SCH ×5 (06:00→18:00)
[2017-07-08] MEDS: Aspirin Baby 81mg NG SCH (10:00)
[2017-07-08] MEDS: Heparin 5000 units/ml inj SUBQ SCH ×2 (10:02→20:34)
--- NOTE | 2017-07-08 10:54 | Diagnostic Imaging Report ---
Indication: NG tube placement Technique: XRAY Abdomen 1v Comparison: 07/07/2017, 10:48 Findings: Interval replacement of NG tube, now appropriately positioned with the tip and side port in the expected region of the stomach. Bowel gas pattern is nonspecific. Degenerative changes noted in the spine. Impression: NG tube in satisfactory position.
--- NOTE | 2017-07-08 11:00 | General Progress Note ---
Assessment/Plan Problem List: (1) Catheter-related bloodstream infection ICD Codes: T80.211A - Bloodstream infection due to central venous catheter, initial encounter SNOMED: 635367304 (2) Renal failure ICD Codes: N19 - Unspecified kidney failure SNOMED: 10194308 (3) Septic shock ICD Codes: A41.9 - Sepsis, unspecified organism; R65.21 - Severe sepsis with septic shock SNOMED: 46687257 (4) Respiratory failure ICD Codes: J96.90 - Respiratory failure, unspecified, unspecified whether with hypoxia or hypercapnia SNOMED: 504333205 (5) Malnutrition of moderate degree ICD Codes: E44.0 - Moderate protein-calorie malnutrition SNOMED: 947647882 (6) End-stage renal disease ICD Codes: N18.6 - End stage renal disease SNOMED: 47285147 (7) Healthcare-associated pneumonia ICD Codes: J18.9 - Pneumonia, unspecified organism SNOMED: 728231689 Status: stable, progressing Assessment/Plan cont iv abx HD as tolerated resp rx feeds check swallow dvt/stress ulcer prophyalxi monitor h/h transfuse as needed epo/iron guarded but improving dnr Subjective ROS Limited/Unobtainable: Yes Constitutional: Reports: malaise, weakness HEENT: Reports: no symptoms Cardiovascular: Reports: no symptoms Respiratory: Reports: no symptoms Gastrointestinal/Abdominal: Reports: difficulty swallowing Genitourinary: Reports: no symptoms Neurologic/Psychiatric: Reports: pre-existing deficit Endocrine: Reports: no symptoms Hematologic/Lymphatic: Reports: anemia Allergies: Coded Allergies: No Known Allergies (Unverified , 06/18/17) All Systems: reviewed and negative except above Subjective remains extubated on nasal cannula. doing well. no fever or chills. on ngt feeds. Objective Last 24 Hour Vital Signs Date Time Temp Pulse Resp B/P (MAP) Pulse Ox O2 Delivery O2 Flow Rate FiO2 07/08/17 10:49 105 34 100 Nasal Cannula 2.0 07/08/17 09:54 100 34 Mechanical Ventilator 07/08/17 07:16 103 34 99 Room Air 21 07/08/17 07:06 Room Air 21 07/08/17 07:06 102 34 96 21 07/08/17 07:06 96 Room Air 07/08/17 07:00 104 35 128/68 100 Nasal Cannula 2.0 07/08/17 06:00 111 28 130/57 100 Nasal Cannula 2.0 07/08/17 05:00 108 36 119/70 100 Nasal Cannula 2.0 07/08/17 04:28 107 07/08/17 04:00 97.6 107 28 104/59 100 Nasal Cannula 2.0 07/08/17 03:02 Nasal Cannula 2.0 28 07/08/17 03:02 Nasal Cannula 2.0 28 07/08/17 03:00 108 30 122/63 100 Nasal Cannula 2.0 07/08/17 02:30 Nasal Cannula 3.0 07/08/17 02:00 110 31 117/58 96 Nasal Cannula 2.0 07/08/17 01:00 106 26 111/53 100 Nasal Cannula 2.0 07/08/17 00:40 Nasal Cannula 2.0 07/08/17 00:00 97.6 99 26 99/53 100 Nasal Cannula 2.0 07/07/17 23:50 99 07/07/17 23:16 103 32 100 Nasal Cannula 2.0 28 07/07/17 23:02 100 32 100 Nasal Cannula 2.0 28 07/07/17 23:00 101 28 115/53 100 Nasal Cannula 2.0 07/07/17 22:00 100 43 112/63 100 Nasal Cannula 2.0 07/07/17 21:00 105 34 107/54 100 Nasal Cannula 2.0 07/07/17 20:00 97.6 104 26 99/52 100 Nasal Cannula 2.0 07/07/17 20:00 105 07/07/17 19:13 Nasal Cannula 2.0 28 07/07/17 19:13 100 Nasal Cannula 2.0 28 07/07/17 19:12 100 25 100 Nasal Cannula 2.0 28 07/07/17 19:02 97 26 99 Nasal Cannula 2.0 28 07/07/17 19:00 100 25 115/56 100 Nasal Cannula 2.0 07/07/17 18:00 108 27 125/65 97 Nasal Cannula 2.0 07/07/17 17:00 102 26 107/60 100 Nasal Cannula 2.0 07/07/17 16:00 105 07/07/17 16:00 97.7 104 27 119/63 100 Nasal Cannula 2.0 07/07/17 15:00 103 26 112/56 100 Nasal Cannula 2.0 07/07/17 14:45 106 30 100 Nasal Cannula 2.0 28 07/07/17 14:34 107 31 99 Nasal Cannula 2.0 28 07/07/17 14:00 104 33 113/61 100 Nasal Cannula 2.0 07/07/17 13:00 104 29 108/61 100 Nasal Cannula 2.0 07/07/17 12:44 Nasal Cannula 2.0 28 07/07/17 12:44 100 Nasal Cannula 2.0 28 07/07/17 12:00 98.2 108 37 105/53 100 Nasal Cannula 2.0 07/07/17 12:00 107 07/07/17 11:00 109 36 115/57 100 Nasal Cannula 2.0 07/07/17 10:59 106 28 99 Nasal Cannula 2.0 28 Intake and Output 07/07/17 07/08/17 19:00 07:00 Intake Total 220 ml 0 ml Output Total 400 ml Balance 220 ml -400 ml Tube Feeding 160 ml 0 ml Other 60 ml Hemodialysis UF 400 ml # Bowel Movements 1 2 Height (Feet): 5 Height (Inches): 10.00 Weight (Pounds): 170 Objective General Appearance: WD/WN, alert, confused Neck: supple Cardiovascular: regular rhythm Respiratory/Chest: chest wall non-tender, lungs clear, normal breath sounds, no respiratory distress Abdomen: normal bowel sounds, non tender, soft, no organomegaly, no mass Edema: no edema noted Arm (L), no edema noted Arm (R), no edema noted Leg (L), no edema noted Leg (R), no edema noted Pedal (L), no edema noted Pedal (R), no edema noted Generalized Neurologic: more alert, aphasia KEENA BRANDT Jul 08, 2017 10:59
--- NOTE | 2017-07-08 12:38 | Nephrology Progress Note ---
Assessment/Plan Problem List: (1) Healthcare-associated pneumonia (2) Malnutrition of moderate degree (3) End-stage renal disease (4) Respiratory failure (5) Septic shock Plan , meds reviewed for eskd,hypotension, mrsa sepsis, he isunable to sign as critically ill, hd via new cath 06/27 , flow variable observe hd 06/29,remains on pressors--off 15 am, hd 07/01 +07/04 still low-nl bp , unresponsive, poor prognosis hd 07/06next 07/08--poor cath needs new hd cath Subjective ROS Limited/Unobtainable: Yes Objective Objective Last 24 Hour Vital Signs Date Time Temp Pulse Resp B/P (MAP) Pulse Ox O2 Delivery O2 Flow Rate FiO2 07/08/17 11:00 97.0 104 29 121/62 100 Room Air 07/08/17 10:59 105 36 100 Room Air 21 07/08/17 10:49 105 34 100 Nasal Cannula 2.0 28 07/08/17 10:00 103 29 128/68 100 Room Air 07/08/17 09:54 100 34 Mechanical Ventilator 21 07/08/17 09:00 104 29 127/66 100 2.0 07/08/17 08:00 96.0 103 29 134/67 100 2.0 07/08/17 08:00 99 07/08/17 07:16 103 34 99 Room Air 21 07/08/17 07:06 Room Air 21 07/08/17 07:06 102 34 96 21 07/08/17 07:06 96 Room Air 21 07/08/17 07:00 104 35 128/68 100 Nasal Cannula 2.0 07/08/17 06:00 111 28 130/57 100 Nasal Cannula 2.0 07/08/17 05:00 108 36 119/70 100 Nasal Cannula 2.0 07/08/17 04:28 107 07/08/17 04:00 97.6 107 28 104/59 100 Nasal Cannula 2.0 07/08/17 03:02 Nasal Cannula 2.0 28 07/08/17 03:02 Nasal Cannula 2.0 28 07/08/17 03:00 108 30 122/63 100 Nasal Cannula 2.0 07/08/17 02:30 Nasal Cannula 3.0 07/08/17 02:00 110 31 117/58 96 Nasal Cannula 2.0 07/08/17 01:00 106 26 111/53 100 Nasal Cannula 2.0 07/08/17 00:40 Nasal Cannula 2.0 07/08/17 00:00 97.6 99 26 99/53 100 Nasal Cannula 2.0 07/07/17 23:50 99 07/07/17 23:16 103 32 100 Nasal Cannula 2.0 28 07/07/17 23:02 100 32 100 Nasal Cannula 2.0 28 07/07/17 23:00 101 28 115/53 100 Nasal Cannula 2.0 07/07/17 22:00 100 43 112/63 100 Nasal Cannula 2.0 07/07/17 21:00 105 34 107/54 100 Nasal Cannula 2.0 07/07/17 20:00 97.6 104 26 99/52 100 Nasal Cannula 2.0 07/07/17 20:00 105 07/07/17 19:13 Nasal Cannula 2.0 28 07/07/17 19:13 100 Nasal Cannula 2.0 28 07/07/17 19:12 100 25 100 Nasal Cannula 2.0 28 07/07/17 19:02 97 26 99 Nasal Cannula 2.0 28 07/07/17 19:00 100 25 115/56 100 Nasal Cannula 2.0 07/07/17 18:00 108 27 125/65 97 Nasal Cannula 2.0 07/07/17 17:00 102 26 107/60 100 Nasal Cannula 2.0 07/07/17 16:00 105 07/07/17 16:00 97.7 104 27 119/63 100 Nasal Cannula 2.0 07/07/17 15:00 103 26 112/56 100 Nasal Cannula 2.0 07/07/17 14:45 106 30 100 Nasal Cannula 2.0 28 07/07/17 14:34 107 31 99 Nasal Cannula 2.0 28 07/07/17 14:00 104 33 113/61 100 Nasal Cannula 2.0 07/07/17 13:00 104 29 108/61 100 Nasal Cannula 2.0 07/07/17 12:44 Nasal Cannula 2.0 28 07/07/17 12:44 100 Nasal Cannula 2.0 28 Intake and Output 07/07/17 07/08/17 19:00 07:00 Intake Total 220 ml 0 ml Output Total 400 ml Balance 220 ml -400 ml Tube Feeding 160 ml 0 ml Other 60 ml Hemodialysis UF 400 ml # Bowel Movements 1 2 Height (Feet): 5 Height (Inches): 10.00 Weight (Pounds): 170 General Appearance: confused EENT: normal ENT inspection Neck: normal alignment Cardiovascular: regular rhythm Respiratory/Chest: lungs clear Extremities: non-tender, trace edema Neurologic: disoriented LEONORA HUI Jul 08, 2017 12:38
[2017-07-08] MEDS ORDERED: Tubing IV Secondary IV ONE ×2 (15:22→18:08)
[2017-07-08] MEDS ORDERED: NS 500ML ONE (15:22)
[2017-07-08] MEDS ORDERED: Sodium Chloride 500ML 550 ML IV PRN (16:00)
[2017-07-08] MEDS ORDERED: Acetaminophen 650 MG SUPP RECTAL PRN (17:00)
[2017-07-08] MEDS ORDERED: NS 275ml ONE (18:08)
[2017-07-08] MEDS ORDERED: Sterile Water Irrig 1000ml IRRIG ONE (18:08)
[2017-07-08] MEDS: Dyna-Hex 2% Top Sol 2oz TOPIC SCH (20:06)
--- NOTE | 2017-07-08 20:23 | Pulmonology Progress Note ---
Assessment/Plan Assessment/Plan 1. Respiratory failure. 2. Sepsis with shock. 3. Dialysis catheter sepsis 4. Stroke with dementia and right hemiparesis. 5. Diabetes. hemodynamically stable on HD on NC abx and wound care tf, most likely weill need GT nebs and suction abx per id disc w RN doing better DNR/DNI HHN Subjective ROS Limited/Unobtainable: Yes Allergies: Coded Allergies: No Known Allergies (Unverified , 06/18/17) Subjective awake, nonberbal looks at me when I speak tolerating tf no fever sats stable on o2 Objective Last 24 Hour Vital Signs Date Time Temp Pulse Resp B/P (MAP) Pulse Ox O2 Delivery O2 Flow Rate FiO2 07/08/17 19:04 102 26 100 Room Air 21 07/08/17 18:53 97 Room Air 21 07/08/17 18:53 Room Air 07/08/17 18:51 100 24 96 Room Air 21 07/08/17 16:00 103 07/08/17 15:45 106 36 100 Room Air 21 07/08/17 15:35 102 34 100 Room Air 21 07/08/17 15:00 97.8 109 19 123/63 96 Nasal Cannula 2.0 109 109 07/08/17 14:00 98.0 113 29 134/76 94 Room Air 07/08/17 13:00 103 29 120/64 99 Room Air 07/08/17 12:00 111 27 121/64 99 Room Air 07/08/17 12:00 98 07/08/17 11:00 97.0 104 29 121/62 100 Room Air 07/08/17 10:59 105 36 100 Room Air 21 07/08/17 10:49 105 34 100 Nasal Cannula 2.0 28 07/08/17 10:00 103 29 128/68 100 Room Air 07/08/17 09:54 100 34 Mechanical Ventilator 21 07/08/17 09:00 104 29 127/66 100 2.0 07/08/17 08:00 96.0 103 29 134/67 100 2.0 07/08/17 08:00 99 07/08/17 07:16 103 34 99 Room Air 21 07/08/17 07:06 Room Air 21 07/08/17 07:06 102 34 96 21 07/08/17 07:06 96 Room Air 21 07/08/17 07:00 104 35 128/68 100 Nasal Cannula 2.0 07/08/17 06:00 111 28 130/57 100 Nasal Cannula 2.0 07/08/17 05:00 108 36 119/70 100 Nasal Cannula 2.0 07/08/17 04:28 107 07/08/17 04:00 97.6 107 28 104/59 100 Nasal Cannula 2.0 07/08/17 03:02 Nasal Cannula 2.0 28 07/08/17 03:02 Nasal Cannula 2.0 28 07/08/17 03:00 108 30 122/63 100 Nasal Cannula 2.0 07/08/17 02:30 Nasal Cannula 3.0 07/08/17 02:00 110 31 117/58 96 Nasal Cannula 2.0 07/08/17 01:00 106 26 111/53 100 Nasal Cannula 2.0 07/08/17 00:40 Nasal Cannula 2.0 07/08/17 00:00 97.6 99 26 99/53 100 Nasal Cannula 2.0 07/07/17 23:50 99 07/07/17 23:16 103 32 100 Nasal Cannula 2.0 28 07/07/17 23:02 100 32 100 Nasal Cannula 2.0 28 07/07/17 23:00 101 28 115/53 100 Nasal Cannula 2.0 07/07/17 22:00 100 43 112/63 100 Nasal Cannula 2.0 07/07/17 21:00 105 34 107/54 100 Nasal Cannula 2.0 Intake and Output 07/07/17 07/08/17 19:00 07:00 Intake Total 220 ml 0 ml Output Total 400 ml Balance 220 ml -400 ml Tube Feeding 160 ml 0 ml Other 60 ml Hemodialysis UF 400 ml # Bowel Movements 1 2 General Appearance: cachetic Respiratory/Chest: rhonchi Cardiovascular: normal rate, regular rhythm Abdomen: no organomegaly, non distended Extremities: no cyanosis Skin: no rash Neurologic/Psychiatric: disoriented Lymphatic: no groin adenopathy Current Medications Medications (Trade) Dose Ordered Sig/Jaime Route PRN Reason Start Time Stop Time Status Last Admin Dose Admin Acetaminophen (Tylenol) 650 mg Q4H PRN RECTAL Prn Headache/Temp > 101 07/08/17 17:00 07/18/17 20:59 Albuterol/ Ipratropium (Albuterol/ Ipratropium) 3 ml Q4HRT HHN 07/08/17 19:00 07/12/17 10:59 07/08/17 18:51 Aspirin (ASA) 81 mg DAILY NG 07/09/17 09:00 07/19/17 18:59 Chlorhexidine Gluconate (Kati-Hex 2%) 1 applic Q24H TOPIC 07/08/17 20:00 07/19/17 19:59 07/08/17 20:06 Dextrose (Dextrose 50%) STAT PRN IV Hypoglycemia 07/09/17 13:00 07/19/17 12:59 Epoetin Russ (Procrit (for ESRD on dialysis)) 5,000 units MON-MON-MON SUBQ 07/10/17 21:00 07/21/17 20:59 Heparin Sodium (Porcine) (Heparin 5000 units/ml) 5,000 units EVERY 12 HOURS SUBQ 07/08/17 21:00 07/18/17 20:59 Insulin Aspart (NovoLOG) EVERY 6 HOURS SUBQ 07/08/17 18:00 07/19/17 17:59 Lansoprazole (Prevacid) 30 mg DAILY GT 07/09/17 09:00 07/19/17 08:59 Sodium Chloride 550 ml @ 500 mls/hr Q1H6M PRN IV sbp<90 during hd 07/08/17 16:00 07/27/17 11:08 LALO CUETO DO Jul 08, 2017 20:23
[2017-07-09] VITALS (7 sets, daily range): BP systolic 110–136; BP diastolic 63–79
[2017-07-09] MEDS: NovoLOG Insulin Flexpen SUBQ SCH ×4 (00:04→17:12)
[2017-07-09] MEDS: Albuterol/Ipratropium 3ml neb HHN SCH ×6 (03:05→23:25)
--- NOTE | 2017-07-09 04:45 | Progress Note ---
DATE: 07/08/2017 CARDIOLOGY PROGRESS NOTE SUBJECTIVE: The patient remains off ventilator support with no acute respiratory distress. NG tube for nutrition is in satisfactory position. PHYSICAL EXAMINATION: VITAL SIGNS: Blood pressure 140/80, pulse 103, respiratory rate 20, and afebrile. LUNGS: Coarse breath sounds. HEART: Regular rhythm and rate. Normal S1, S2. ABDOMEN: Soft. EXTREMITIES: Trace edema. LABORATORY DATA: Labs noted. IMPRESSION: 1. Respiratory failure, status post extubation, hemodynamically stable. 2. Aspiration risk. 3. End-stage renal disease. PLAN: 1. Swallow evaluation. 2. Titrate cardiovascular regimen. 3. Hemodialysis with ultrafiltration for volume management. 4. Antimicrobials and respiratory hygiene. Gurdeep Harvey M.D. DR: ABELARDO JOB#: [id number] CC:
[2017-07-09] MEDS: Aspirin Baby 81mg NG SCH (08:40)
[2017-07-09] MEDS: Metoprolol 25mg tab ORAL SCH ×2 (08:41→20:06)
[2017-07-09] MEDS: Heparin 5000 units/ml inj SUBQ SCH ×2 (08:44→20:06)
--- NOTE | 2017-07-09 09:02 | Infectious Diseases Prog Note ---
Assessment/Plan Assessment/Plan A 1. MRSA sepsis s/p catheter removal 2. septic shock resolved 3. respiratory failure 4. renal failure, ESRD 5. staph aureus , Enterobacter pneumonia P 1. continue vancomycin iv X 7 days Subjective ROS Limited/Unobtainable: Yes Neurologic: Reports: other - more alert Allergies: Coded Allergies: No Known Allergies (Unverified , 06/18/17) Objective Vital Signs Last 24 Hour Vital Signs Date Time Temp Pulse Resp B/P (MAP) Pulse Ox O2 Delivery O2 Flow Rate FiO2 07/09/17 08:41 110 129/65 07/09/17 08:00 97.2 110 18 129/65 99 Nasal Cannula 2.0 07/09/17 07:28 Nasal Cannula 28 07/09/17 07:28 90 16 98 Nasal Cannula 28 07/09/17 07:28 98 Nasal Cannula 2.0 28 07/09/17 04:00 97.0 108 20 131/67 98 Nasal Cannula 2.0 07/09/17 04:00 111 07/09/17 03:14 104 24 99 Nasal Cannula 2.0 28 07/09/17 03:05 98 20 97 Nasal Cannula 28 07/09/17 00:00 97.0 107 20 136/79 100 Nasal Cannula 2.0 07/09/17 00:00 107 07/08/17 23:40 99 24 100 Room Air 21 07/08/17 23:28 102 22 98 Nasal Cannula 28 07/08/17 20:00 107 07/08/17 20:00 97.6 103 20 140/83 98 Nasal Cannula 2.0 07/08/17 19:04 102 26 100 Room Air 21 07/08/17 18:53 97 Room Air 21 07/08/17 18:53 Room Air 21 07/08/17 18:51 100 24 96 Room Air 21 07/08/17 16:00 103 07/08/17 15:45 106 36 100 Room Air 21 07/08/17 15:35 102 34 100 Room Air 21 07/08/17 15:00 97.8 109 19 123/63 96 Nasal Cannula 2.0 109 109 07/08/17 14:00 98.0 113 29 134/76 94 Room Air 07/08/17 13:00 103 29 120/64 99 Room Air 07/08/17 12:00 111 27 121/64 99 Room Air 07/08/17 12:00 98 07/08/17 11:00 97.0 104 29 121/62 100 Room Air 07/08/17 10:59 105 36 100 Room Air 21 07/08/17 10:49 105 34 100 Nasal Cannula 2.0 28 07/08/17 10:00 103 29 128/68 100 Room Air 07/08/17 09:54 100 34 Mechanical Ventilator 21 07/08/17 09:00 104 29 127/66 100 2.0 Height (Feet): 5 Height (Inches): 10.00 Weight (Pounds): 171 HEENT: other - O2 by nasal cannula Respiratory/Chest: rhonchi - bilaterally Cardiovascular: tachycardia Abdomen: soft, non tender, other - NG tube Extremities: no edema Neurologic/Psychiatric: aphasia, other - awake Laboratory Tests Test 07/09/17 03:20 Random Vancomycin Level 20.4 ug/mL Current Medications Medications (Trade) Dose Ordered Sig/Jaime Route PRN Reason Start Time Stop Time Status Last Admin Dose Admin Acetaminophen (Tylenol) 650 mg Q4H PRN RECTAL Prn Headache/Temp > 101 07/08/17 17:00 07/18/17 20:59 Albuterol/ Ipratropium (Albuterol/ Ipratropium) 3 ml Q4HRT HHN 07/08/17 19:00 07/12/17 10:59 07/09/17 07:28 Aspirin (ASA) 81 mg DAILY NG 07/09/17 09:00 07/19/17 18:59 07/09/17 08:40 Chlorhexidine Gluconate (Kati-Hex 2%) 1 applic Q24H TOPIC 07/08/17 20:00 07/19/17 19:59 07/08/17 20:06 Dextrose (Dextrose 50%) STAT PRN IV Hypoglycemia 07/09/17 13:00 07/19/17 12:59 Epoetin Russ (Procrit (for ESRD on dialysis)) 5,000 units MON-WED-FRI SUBQ 07/10/17 21:00 07/21/17 20:59 Heparin Sodium (Porcine) (Heparin 5000 units/ml) 5,000 units EVERY 12 HOURS SUBQ 07/08/17 21:00 07/18/17 20:59 07/09/17 08:44 Insulin Aspart (NovoLOG) EVERY 6 HOURS SUBQ 07/08/17 18:00 07/19/17 17:59 07/09/17 05:57 Lansoprazole (Prevacid) 30 mg DAILY GT 07/09/17 09:00 07/19/17 08:59 07/09/17 08:40 Metoprolol Tartrate (Lopressor) 25 mg Q12HR ORAL 07/09/17 09:00 08/08/17 08:59 07/09/17 08:41 Sodium Chloride 550 ml @ 500 mls/hr Q1H6M PRN IV sbp<90 during hd 07/08/17 16:00 07/27/17 11:08 ZAIRA ROBLES Jul 09, 2017 09:02
--- NOTE | 2017-07-09 09:20 | General Progress Note ---
Assessment/Plan Problem List: (1) Catheter-related bloodstream infection ICD Codes: T80.211A - Bloodstream infection due to central venous catheter, initial encounter SNOMED: 722914506 (2) Renal failure ICD Codes: N19 - Unspecified kidney failure SNOMED: 37411294 (3) Septic shock ICD Codes: A41.9 - Sepsis, unspecified organism; R65.21 - Severe sepsis with septic shock SNOMED: 41626868 (4) Respiratory failure ICD Codes: J96.90 - Respiratory failure, unspecified, unspecified whether with hypoxia or hypercapnia SNOMED: 757301378 (5) Malnutrition of moderate degree ICD Codes: E44.0 - Moderate protein-calorie malnutrition SNOMED: 241295056 (6) End-stage renal disease ICD Codes: N18.6 - End stage renal disease SNOMED: 27196297 (7) Healthcare-associated pneumonia ICD Codes: J18.9 - Pneumonia, unspecified organism SNOMED: 054062045 Status: stable, progressing Assessment/Plan cont iv abx HD as tolerated resp rx feeds check swallow dvt/stress ulcer prophyalxi monitor h/h transfuse as needed epo/iron guarded but improving dnr Subjective ROS Limited/Unobtainable: Yes Constitutional: Reports: malaise, weakness HEENT: Reports: no symptoms Cardiovascular: Reports: no symptoms Respiratory: Reports: cough, sputum Gastrointestinal/Abdominal: Reports: difficulty swallowing Genitourinary: Reports: no symptoms Neurologic/Psychiatric: Reports: pre-existing deficit Endocrine: Reports: no symptoms Hematologic/Lymphatic: Reports: no symptoms Allergies: Coded Allergies: No Known Allergies (Unverified , 06/18/17) All Systems: reviewed and negative except above Subjective remains extubated on nasal cannula. doing well. no fever or chills. on ngt feeds. alert. follows some simple commands. still waiting for swallow eval Objective Last 24 Hour Vital Signs Date Time Temp Pulse Resp B/P (MAP) Pulse Ox O2 Delivery O2 Flow Rate FiO2 07/09/17 08:41 110 129/65 07/09/17 08:00 97.2 110 18 129/65 99 Nasal Cannula 2.0 07/09/17 07:28 Nasal Cannula 28 07/09/17 07:28 90 16 98 Nasal Cannula 28 07/09/17 07:28 98 Nasal Cannula 2.0 07/09/17 04:00 97.0 108 20 131/67 98 Nasal Cannula 2.0 07/09/17 04:00 111 07/09/17 03:14 104 24 99 Nasal Cannula 2.0 28 07/09/17 03:05 98 20 97 Nasal Cannula 28 07/09/17 00:00 97.0 107 20 136/79 100 Nasal Cannula 2.0 07/09/17 00:00 107 07/08/17 23:40 99 24 100 Room Air 21 07/08/17 23:28 102 22 98 Nasal Cannula 28 07/08/17 20:00 107 07/08/17 20:00 97.6 103 20 140/83 98 Nasal Cannula 2.0 07/08/17 19:04 102 26 100 Room Air 21 07/08/17 18:53 97 Room Air 21 07/08/17 18:53 Room Air 21 07/08/17 18:51 100 24 96 Room Air 21 07/08/17 16:00 103 07/08/17 15:45 106 36 100 Room Air 21 07/08/17 15:35 102 34 100 Room Air 21 07/08/17 15:00 97.8 109 19 123/63 96 Nasal Cannula 2.0 109 109 07/08/17 14:00 98.0 113 29 134/76 94 Room Air 07/08/17 13:00 103 29 120/64 99 Room Air 07/08/17 12:00 111 27 121/64 99 Room Air 07/08/17 12:00 98 07/08/17 11:00 97.0 104 29 121/62 100 Room Air 07/08/17 10:59 105 36 100 Room Air 21 07/08/17 10:49 105 34 100 Nasal Cannula 2.0 28 07/08/17 10:00 103 29 128/68 100 Room Air 07/08/17 09:54 100 34 Mechanical Ventilator 21 Intake and Output 07/08/17 07/09/17 19:00 07:00 Intake Total 200 ml 580 ml Output Total 2 ml Balance 198 ml 580 ml Intake Free Water 100 ml Tube Feeding 200 ml 480 ml Output Urine Total 1 ml Stool Total 1 ml # Voids 1 # Bowel Movements 4 1 Laboratory Tests 07/09/17 03:20: Random Vancomycin Level 20.4 Height (Feet): 5 Height (Inches): 10.00 Weight (Pounds): 171 Objective General Appearance: WD/WN, alert, confused Neck: supple Cardiovascular: regular rhythm Respiratory/Chest: chest wall non-tender, few rhonchi, normal breath sounds, no respiratory distress Abdomen: normal bowel sounds, non tender, soft, no organomegaly, no mass Edema: no edema noted Arm (L), no edema noted Arm (R), no edema noted Leg (L), no edema noted Leg (R), no edema noted Pedal (L), no edema noted Pedal (R), no edema noted Generalized Neurologic: more alert, aphasia KEENA BRANDT Jul 09, 2017 09:20
--- NOTE | 2017-07-09 13:44 | Nephrology Progress Note ---
Assessment/Plan Problem List: (1) Healthcare-associated pneumonia (2) Malnutrition of moderate degree (3) End-stage renal disease (4) Respiratory failure (5) Septic shock Plan , meds reviewed for eskd,hypotension, mrsa sepsis, he isunable to sign as critically ill, hd via new cath 06/27 , flow variable observe hd 06/29,remains on pressors--off 15 am, hd 07/01 +07/04 still low-nl bp , unresponsive, poor prognosis hd 07/06next 07/08--poor cath needs new hd cath Subjective ROS Limited/Unobtainable: Yes Objective Objective Last 24 Hour Vital Signs Date Time Temp Pulse Resp B/P (MAP) Pulse Ox O2 Delivery O2 Flow Rate FiO2 07/09/17 12:00 97.3 95 17 110/64 98 Nasal Cannula 2.0 07/09/17 11:54 90 07/09/17 11:37 94 18 99 Nasal Cannula 2.0 28 07/09/17 11:30 96 20 98 Nasal Cannula 28 07/09/17 08:41 110 129/65 07/09/17 08:00 97.2 110 18 129/65 99 Nasal Cannula 2.0 07/09/17 07:52 105 07/09/17 07:39 95 20 99 Nasal Cannula 2.0 28 07/09/17 07:28 Nasal Cannula 28 07/09/17 07:28 90 16 98 Nasal Cannula 28 07/09/17 07:28 98 Nasal Cannula 2.0 28 07/09/17 04:00 97.0 108 20 131/67 98 Nasal Cannula 2.0 07/09/17 04:00 111 07/09/17 03:14 104 24 99 Nasal Cannula 2.0 28 07/09/17 03:05 98 20 97 Nasal Cannula 28 07/09/17 00:00 97.0 107 20 136/79 100 Nasal Cannula 2.0 07/09/17 00:00 107 07/08/17 23:40 99 24 100 Room Air 21 07/08/17 23:28 102 22 98 Nasal Cannula 28 07/08/17 20:00 107 07/08/17 20:00 97.6 103 20 140/83 98 Nasal Cannula 2.0 07/08/17 19:04 102 26 100 Room Air 21 07/08/17 18:53 97 Room Air 21 07/08/17 18:53 Room Air 21 07/08/17 18:51 100 24 96 Room Air 21 07/08/17 16:00 103 07/08/17 15:45 106 36 100 Room Air 21 07/08/17 15:35 102 34 100 Room Air 21 07/08/17 15:00 97.8 109 19 123/63 96 Nasal Cannula 2.0 109 109 07/08/17 14:00 98.0 113 29 134/76 94 Room Air Intake and Output 07/08/17 07/09/17 19:00 07:00 Intake Total 200 ml 580 ml Output Total 2 ml Balance 198 ml 580 ml Intake Free Water 100 ml Tube Feeding 200 ml 480 ml Output Urine Total 1 ml Stool Total 1 ml # Voids 1 # Bowel Movements 4 1 Laboratory Tests 07/09/17 03:20: Random Vancomycin Level 20.4 Height (Feet): 5 Height (Inches): 10.00 Weight (Pounds): 171 General Appearance: lethargic, confused EENT: normal ENT inspection Neck: normal alignment Cardiovascular: regular rhythm, tachycardia Respiratory/Chest: rhonchi - bilaterally Abdomen: non tender Extremities: moderate edema Neurologic: disoriented LEONORA HUI Jul 09, 2017 13:44
--- NOTE | 2017-07-09 19:55 | Pulmonology Progress Note ---
Assessment/Plan Assessment/Plan 1. Respiratory failure. 2. Sepsis with shock. 3. Dialysis catheter sepsis 4. Stroke with dementia and right hemiparesis. 5. Diabetes. hemodynamically stable on HD on NC abx and wound care tf, most likely weill need GT nebs and suction abx per id disc w RN doing better DNR/DNI HHN Subjective ROS Limited/Unobtainable: Yes Allergies: Coded Allergies: No Known Allergies (Unverified , 06/18/17) Subjective awake, nonverbal looks at me when I speak tolerating tf no fever sats stable on o2 no bleeding does not follow commands Objective Last 24 Hour Vital Signs Date Time Temp Pulse Resp B/P (MAP) Pulse Ox O2 Delivery O2 Flow Rate FiO2 07/09/17 19:34 94 21 96 Nasal Cannula 2.0 28 07/09/17 19:09 28 07/09/17 19:08 Nasal Cannula 2.0 28 07/09/17 19:08 94 21 96 Nasal Cannula 2.0 28 07/09/17 19:05 96 Nasal Cannula 2.0 28 07/09/17 16:01 94 07/09/17 16:00 97.5 98 21 117/63 99 Nasal Cannula 2.0 07/09/17 15:25 92 18 100 Nasal Cannula 2.0 28 07/09/17 15:19 94 18 100 Nasal Cannula 28 07/09/17 12:00 97.3 95 17 110/64 98 Nasal Cannula 2.0 07/09/17 11:54 90 07/09/17 11:37 94 18 99 Nasal Cannula 2.0 28 07/09/17 11:30 96 20 98 Nasal Cannula 28 07/09/17 08:41 110 129/65 07/09/17 08:00 97.2 110 18 129/65 99 Nasal Cannula 2.0 07/09/17 07:52 105 07/09/17 07:39 95 20 99 Nasal Cannula 2.0 28 07/09/17 07:28 Nasal Cannula 28 07/09/17 07:28 90 16 98 Nasal Cannula 28 07/09/17 07:28 98 Nasal Cannula 2.0 28 07/09/17 04:00 97.0 108 20 131/67 98 Nasal Cannula 2.0 07/09/17 04:00 111 07/09/17 03:14 104 24 99 Nasal Cannula 2.0 28 07/09/17 03:05 98 20 97 Nasal Cannula 28 07/09/17 00:00 97.0 107 20 136/79 100 Nasal Cannula 2.0 07/09/17 00:00 107 07/08/17 23:40 99 24 100 Room Air 21 07/08/17 23:28 102 22 98 Nasal Cannula 28 07/08/17 20:00 107 07/08/17 20:00 97.6 103 20 140/83 98 Nasal Cannula 2.0 Intake and Output 07/08/17 07/09/17 19:00 07:00 Intake Total 200 ml 580 ml Output Total 2 ml Balance 198 ml 580 ml Intake Free Water 100 ml Tube Feeding 200 ml 480 ml Output Urine Total 1 ml Stool Total 1 ml # Voids 1 # Bowel Movements 4 1 General Appearance: cachetic HEENT: atraumatic, mucous membranes moist Respiratory/Chest: rhonchi Cardiovascular: regular rhythm, murmur systolic Abdomen: soft, non tender, distended Skin: no rash Neurologic/Psychiatric: disoriented Laboratory Tests 07/09/17 03:20: Random Vancomycin Level 20.4 Current Medications Medications (Trade) Dose Ordered Sig/Jaime Route PRN Reason Start Time Stop Time Status Last Admin Dose Admin Acetaminophen (Tylenol) 650 mg Q4H PRN RECTAL Prn Headache/Temp > 101 07/08/17 17:00 07/18/17 20:59 Albuterol/ Ipratropium (Albuterol/ Ipratropium) 3 ml Q4HRT HHN 07/08/17 19:00 07/12/17 10:59 07/09/17 19:09 Aspirin (ASA) 81 mg DAILY NG 07/09/17 09:00 07/19/17 18:59 07/09/17 08:40 Chlorhexidine Gluconate (Kati-Hex 2%) 1 applic Q24H TOPIC 07/08/17 20:00 07/19/17 19:59 07/08/17 20:06 Dextrose (Dextrose 50%) STAT PRN IV Hypoglycemia 07/09/17 13:00 07/19/17 12:59 Epoetin Russ (Procrit (for ESRD on dialysis)) 5,000 units MON-WED-FRI SUBQ 07/10/17 21:00 07/21/17 20:59 Heparin Sodium (Porcine) (Heparin 5000 units/ml) 5,000 units EVERY 12 HOURS SUBQ 07/08/17 21:00 07/18/17 20:59 07/09/17 08:44 Insulin Aspart (NovoLOG) EVERY 6 HOURS SUBQ 07/08/17 18:00 07/19/17 17:59 07/09/17 17:12 Lansoprazole (Prevacid) 30 mg DAILY GT 07/09/17 09:00 07/19/17 08:59 07/09/17 08:40 Metoprolol Tartrate (Lopressor) 25 mg Q12HR ORAL 07/09/17 09:00 08/08/17 08:59 07/09/17 08:41 Sodium Chloride 550 ml @ 500 mls/hr Q1H6M PRN IV sbp<90 during hd 07/08/17 16:00 07/27/17 11:08 Vancomycin HCl (Vanco rx to dose) 1 ea DAILY PRN MISC Per rx protocol 07/09/17 14:15 08/08/17 14:14 LALO CUETO DO Jul 09, 2017 19:55
[2017-07-09] MEDS: Dyna-Hex 2% Top Sol 2oz TOPIC SCH (20:06)
[2017-07-09] MEDS ORDERED: Metoprolol 25mg tab ORAL SCH (21:00)
[2017-07-10] VITALS: BP 125/75
[2017-07-10] MEDS: Albuterol/Ipratropium 3ml neb HHN SCH ×6 (03:08→22:55)
[2017-07-10 04:00] VITALS: BP 132/69
[2017-07-10] MEDS: NovoLOG Insulin Flexpen SUBQ SCH ×4 (05:33→17:53)
[2017-07-10 05:52] LABS: BASOPHILS % (AUTO) 0.6 % (0.0-2.0); EOSINOPHILS % (AUTO) 2.7 % (0.0-3.0); LYMPHOCYTES % (AUTO) 29.6 % (20.0-45.0); MEAN CORPUSCULAR VOLUME 90 FL (80-99); MONOCYTES % (AUTO) 11.4 % (1.0-10.0); NEUTROPHILS % (AUTO) 55.7 % (45.0-75.0); PLATELET COUNT 501 K/UL (150-450); RED CELL DISTRIBUTION WIDTH 19.6 % (11.6-14.8); WHITE BLOOD COUNT 8.6 K/UL (4.8-10.8)
[2017-07-10 06:10] LABS: ALANINE AMINOTRANSFERASE 51 U/L (12-78); ALBUMIN 1.4 G/DL (3.4-5.0); ALBUMIN/GLOBULIN RATIO 0.2 (1.0-2.7); ALKALINE PHOSPHATASE 284 U/L (46-116); ANION GAP 11 mmol/L (5-15); ASPARTATE AMINO TRANSFERASE 80 U/L (15-37); BILIRUBIN,TOTAL 0.6 MG/DL (0.2-1.0); BLOOD UREA NITROGEN 49 mg/dL (7-18); CALCIUM 8.1 MG/DL (8.5-10.1); CARBON DIOXIDE 25 MMOL/L (21-32); CHLORIDE 103 MMOL/L (98-107); CREATININE 4.8 MG/DL (0.55-1.30); POTASSIUM 3.9 MMOL/L (3.5-5.1); SODIUM 139 MMOL/L (136-145)
[2017-07-10 08:00] VITALS: BP 153/95
[2017-07-10] MEDS: Heparin 5000 units/ml inj SUBQ SCH ×2 (08:52→20:34)
[2017-07-10] MEDS: Metoprolol 25mg tab ORAL SCH ×2 (08:52→20:35)
[2017-07-10] MEDS: Aspirin Baby 81mg NG SCH (08:52)
--- NOTE | 2017-07-10 09:08 | General Progress Note ---
Assessment/Plan Problem List: (1) Catheter-related bloodstream infection ICD Codes: T80.211A - Bloodstream infection due to central venous catheter, initial encounter SNOMED: 327989881 (2) Renal failure ICD Codes: N19 - Unspecified kidney failure SNOMED: 34229828 (3) Septic shock ICD Codes: A41.9 - Sepsis, unspecified organism; R65.21 - Severe sepsis with septic shock SNOMED: 94643844 (4) Respiratory failure ICD Codes: J96.90 - Respiratory failure, unspecified, unspecified whether with hypoxia or hypercapnia SNOMED: 076911275 (5) Malnutrition of moderate degree ICD Codes: E44.0 - Moderate protein-calorie malnutrition SNOMED: 955613306 (6) End-stage renal disease ICD Codes: N18.6 - End stage renal disease SNOMED: 90238130 (7) Healthcare-associated pneumonia ICD Codes: J18.9 - Pneumonia, unspecified organism SNOMED: 132513923 Status: stable Assessment/Plan cont iv abx per id HD as tolerated resp rx feeds await swallow eval dvt/stress ulcer prophyalxi monitor h/h transfuse as needed epo/iron guarded but improving dnr Subjective ROS Limited/Unobtainable: No Constitutional: Reports: malaise, weakness HEENT: Reports: no symptoms Cardiovascular: Reports: no symptoms Respiratory: Reports: cough Gastrointestinal/Abdominal: Reports: difficulty swallowing Genitourinary: Reports: no symptoms Neurologic/Psychiatric: Reports: pre-existing deficit Endocrine: Reports: no symptoms Hematologic/Lymphatic: Reports: no symptoms Allergies: Coded Allergies: No Known Allergies (Unverified , 06/18/17) All Systems: reviewed and negative except above Subjective remains extubated on nasal cannula. doing well. no fever or chills. on ngt feeds. alert. follows some simple commands. still waiting for swallow eval. labile hr. no distress. Objective Last 24 Hour Vital Signs Date Time Temp Pulse Resp B/P (MAP) Pulse Ox O2 Delivery O2 Flow Rate FiO2 07/10/17 08:52 118 153/95 07/10/17 08:00 96.3 118 22 153/95 92 Nasal Cannula 2.0 07/10/17 04:00 96.5 99 20 132/69 98 Nasal Cannula 2.0 99 99 07/10/17 04:00 98 07/10/17 03:35 88 20 99 Nasal Cannula 2.0 28 07/10/17 03:07 90 20 100 Nasal Cannula 2.0 28 07/10/17 03:07 28 07/10/17 00:00 90 07/10/17 00:00 96.1 96 20 125/75 100 Nasal Cannula 2.0 96 96 07/09/17 23:30 86 20 100 Nasal Cannula 2.0 28 07/09/17 23:24 28 07/09/17 23:23 86 20 100 Mechanical Ventilator 2.0 28 07/09/17 21:14 96.8 86 20 118/68 100 Mechanical Ventilator 86 86 07/09/17 20:06 94 117/63 07/09/17 20:00 96.8 86 20 118/68 100 Room Air 86 86 07/09/17 20:00 103 07/09/17 19:34 94 21 96 Nasal Cannula 2.0 28 07/09/17 19:09 28 07/09/17 19:08 Nasal Cannula 2.0 28 07/09/17 19:08 94 21 96 Nasal Cannula 2.0 28 07/09/17 19:05 96 Nasal Cannula 2.0 28 07/09/17 16:01 94 07/09/17 16:00 97.5 98 21 117/63 99 Nasal Cannula 2.0 07/09/17 15:25 92 18 100 Nasal Cannula 2.0 28 07/09/17 15:19 94 18 100 Nasal Cannula 28 07/09/17 12:00 97.3 95 17 110/64 98 Nasal Cannula 2.0 07/09/17 11:54 90 07/09/17 11:37 94 18 99 Nasal Cannula 2.0 28 07/09/17 11:30 96 20 98 Nasal Cannula 28 Intake and Output 07/09/17 07/10/17 19:00 07:00 Intake Total 270 ml Balance 270 ml Tube Feeding 240 ml Other 30 ml # Voids 2 Laboratory Tests 07/10/17 04:00: White Blood Count 8.6, Red Blood Count 3.10L, Hemoglobin 9.0L, Hematocrit 28.0L , Mean Corpuscular Volume 90, Mean Corpuscular Hemoglobin 29.0, Mean Corpuscular Hemoglobin Concent 32.1, Red Cell Distribution Width 19.6H, Platelet Count 501H, Mean Platelet Volume 6.0L, Neutrophils (%) (Auto) 55.7, Lymphocytes (%) (Auto) 29.6, Monocytes (%) (Auto) 11.4H, Eosinophils (%) (Auto) 2.7, Basophils (%) (Auto) 0.6, Sodium Level 139, Potassium Level 3.9, Chloride Level 103, Carbon Dioxide Level 25, Anion Gap 11, Blood Urea Nitrogen 49H, Creatinine 4.8H, Estimat Glomerular Filtration Rate , Glucose Level 96, Calcium Level 8.1L, Magnesium Level 2.2, Total Bilirubin 0.6, Aspartate Amino Transf ( AST/SGOT) 80H, Alanine Aminotransferase (ALT/SGPT) 51, Alkaline Phosphatase 284H , Total Protein 7.5, Albumin 1.4L, Globulin 6.1, Albumin/Globulin Ratio 0.2L Height (Feet): 5 Height (Inches): 10.00 Weight (Pounds): 174 Objective General Appearance: WD/WN, alert, confused Neck: supple Cardiovascular: regular rhythm Respiratory/Chest: chest wall non-tender, few rhonchi, normal breath sounds, no respiratory distress Abdomen: normal bowel sounds, non tender, soft, no organomegaly, no mass Edema: no edema noted Arm (L), no edema noted Arm (R), no edema noted Leg (L), no edema noted Leg (R), no edema noted Pedal (L), no edema noted Pedal (R), no edema noted Generalized Neurologic: more alert, aphasia KEENA BRANDT Jul 10, 2017 09:08
[2017-07-10 10:01] LABS: INR 1.2 (0.9-1.1)
[2017-07-10 12:00] VITALS: BP 120/73
--- NOTE | 2017-07-10 12:44 | Pulmonology Progress Note ---
Assessment/Plan Assessment/Plan 1. Respiratory failure. 2. Sepsis with shock. 3. Dialysis catheter sepsis 4. Stroke with dementia and right hemiparesis. 5. Diabetes. tolerated extubation very weak on HD nebs and suction abx per id DNR/DNI HHN O2 prognosis guarded Subjective ROS Limited/Unobtainable: Yes Allergies: Coded Allergies: No Known Allergies (Unverified , 06/18/17) Objective Last 24 Hour Vital Signs Date Time Temp Pulse Resp B/P (MAP) Pulse Ox O2 Delivery O2 Flow Rate FiO2 07/10/17 12:00 96.4 97 24 120/73 98 Nasal Cannula 2.0 07/10/17 11:18 36 07/10/17 11:18 100 18 93 Nasal Cannula 4.0 36 07/10/17 08:52 118 153/95 07/10/17 08:10 106 07/10/17 08:00 96.3 118 22 153/95 92 Nasal Cannula 2.0 07/10/17 07:54 105 18 98 Nasal Cannula 4.0 36 07/10/17 07:44 28 07/10/17 07:44 Nasal Cannula 4.0 36 07/10/17 07:44 98 Nasal Cannula 4.0 36 07/10/17 07:44 102 18 89 Nasal Cannula 2.0 28 07/10/17 04:00 96.5 99 20 132/69 98 Nasal Cannula 2.0 99 99 07/10/17 04:00 98 07/10/17 03:35 88 20 99 Nasal Cannula 2.0 28 07/10/17 03:07 90 20 100 Nasal Cannula 2.0 28 07/10/17 03:07 28 07/10/17 00:00 90 07/10/17 00:00 96.1 96 20 125/75 100 Nasal Cannula 2.0 96 96 07/09/17 23:30 86 20 100 Nasal Cannula 2.0 28 07/09/17 23:24 28 07/09/17 23:23 86 20 100 Mechanical Ventilator 2.0 28 07/09/17 21:14 96.8 86 20 118/68 100 Mechanical Ventilator 86 86 07/09/17 20:06 94 117/63 07/09/17 20:00 96.8 86 20 118/68 100 Room Air 86 86 07/09/17 20:00 103 07/09/17 19:34 94 21 96 Nasal Cannula 2.0 28 07/09/17 19:09 28 07/09/17 19:08 Nasal Cannula 2.0 28 07/09/17 19:08 94 21 96 Nasal Cannula 2.0 28 07/09/17 19:05 96 Nasal Cannula 2.0 28 07/09/17 16:01 94 07/09/17 16:00 97.5 98 21 117/63 99 Nasal Cannula 2.0 07/09/17 15:25 92 18 100 Nasal Cannula 2.0 28 07/09/17 15:19 94 18 100 Nasal Cannula 28 Intake and Output 07/09/17 07/10/17 19:00 07:00 Intake Total 270 ml Balance 270 ml Tube Feeding 240 ml Other 30 ml # Voids 2 HEENT: atraumatic Respiratory/Chest: lungs clear Cardiovascular: normal rate Laboratory Tests 07/10/17 04:00: White Blood Count 8.6, Red Blood Count 3.10L, Hemoglobin 9.0L, Hematocrit 28.0L , Mean Corpuscular Volume 90, Mean Corpuscular Hemoglobin 29.0, Mean Corpuscular Hemoglobin Concent 32.1, Red Cell Distribution Width 19.6H, Platelet Count 501H, Mean Platelet Volume 6.0L, Neutrophils (%) (Auto) 55.7, Lymphocytes (%) (Auto) 29.6, Monocytes (%) (Auto) 11.4H, Eosinophils (%) (Auto) 2.7, Basophils (%) (Auto) 0.6, Sodium Level 139, Potassium Level 3.9, Chloride Level 103, Carbon Dioxide Level 25, Anion Gap 11, Blood Urea Nitrogen 49H, Creatinine 4.8H, Estimat Glomerular Filtration Rate , Glucose Level 96, Calcium Level 8.1L, Magnesium Level 2.2, Total Bilirubin 0.6, Aspartate Amino Transf ( AST/SGOT) 80H, Alanine Aminotransferase (ALT/SGPT) 51, Alkaline Phosphatase 284H , Total Protein 7.5, Albumin 1.4L, Globulin 6.1, Albumin/Globulin Ratio 0.2L 07/10/17 09:30: Prothrombin Time 12.7H, Prothromb Time International Ratio 1.2H, Activated Partial Thromboplast Time 38H Current Medications Medications (Trade) Dose Ordered Sig/Jaime Route PRN Reason Start Time Stop Time Status Last Admin Dose Admin Acetaminophen (Tylenol) 650 mg Q4H PRN RECTAL Prn Headache/Temp > 101 07/08/17 17:00 07/18/17 20:59 Albuterol/ Ipratropium (Albuterol/ Ipratropium) 3 ml Q4HRT HHN 07/08/17 19:00 07/12/17 10:59 07/10/17 11:17 Aspirin (ASA) 81 mg DAILY NG 07/09/17 09:00 07/19/17 18:59 07/09/17 08:40 Chlorhexidine Gluconate (Akti-Hex 2%) 1 applic Q24H TOPIC 07/08/17 20:00 07/19/17 19:59 07/09/17 20:06 Dextrose (Dextrose 50%) STAT PRN IV Hypoglycemia 07/09/17 13:00 07/19/17 12:59 Epoetin Russ (Procrit (for ESRD on dialysis)) 5,000 units MON-MON-MON SUBQ 07/10/17 21:00 07/21/17 20:59 Heparin Sodium (Porcine) (Heparin 5000 units/ml) 5,000 units EVERY 12 HOURS SUBQ 07/08/17 21:00 07/18/17 20:59 07/09/17 08:44 Insulin Aspart (NovoLOG) EVERY 6 HOURS SUBQ 07/08/17 18:00 07/19/17 17:59 07/09/17 17:12 Lansoprazole (Prevacid) 30 mg DAILY GT 07/09/17 09:00 07/19/17 08:59 07/10/17 08:52 Metoprolol Tartrate (Lopressor) 25 mg Q12HR ORAL 07/09/17 09:00 08/08/17 08:59 07/10/17 08:52 Sodium Chloride 550 ml @ 500 mls/hr Q1H6M PRN IV sbp<90 during hd 07/08/17 16:00 07/27/17 11:08 Vancomycin HCl (Vanco rx to dose) 1 ea DAILY PRN MISC Per rx protocol 07/09/17 14:15 08/08/17 14:14 PEG MARTINEZ Jul 10, 2017 12:44
--- NOTE | 2017-07-10 13:00 | Progress Note ---
DATE: 07/09/2017 CARDIOLOGY PROGRESS NOTE SUBJECTIVE: The patient without chest pain or shortness of breath, off ventilator. He is status post hemodialysis with ultrafiltration. He is on nasal cannula. He remains with NG-tube. OBJECTIVE: VITAL SIGNS: Blood pressure 117/63, pulse 98, respiratory rate 21, and afebrile. LUNGS: Coarse breath sounds. CARDIOVASCULAR: Regular rhythm and rate. Normal S1, S2 with a fourth heart sound. ABDOMEN: Soft. EXTREMITIES: Trace edema. IMPRESSION: 1. Status post respiratory failure. 2. Status post sepsis with shock. 3. Dysphagia. 4. Acute on chronic diastolic congestive heart failure. 5. End-stage renal disease. 6. Cerebrovascular disease with dementia. PLAN: 1. Antimicrobials. 2. Respiratory hygiene. 3. Hemodialysis with ultrafiltration. 4. Titrate anti-failure and antihypertensive drugs. 5. Swallow evaluation. 6. May need G-tube long-term. 7. DNR/DNI. Gurdeep Harvey M.D. DR: TOMMY/MERLENE JOB#: [id number] CC:
--- NOTE | 2017-07-10 14:40 | Wound Care Consultation ---
Wound Assessment Wound Assessment #1: Wound Number: 1 Wound Present on Admission: Yes New Wound: No Status Change of Wound: No Wound Location Body Site Modif: mid Wound Location Body Site: other - sacrococcygeal extending to left and right buttocks. Wound Type: pressure ulcer Janet Test: Does not Janet Pressure Ulcer Stage: Unstageable Wound Thickness: Full Thickness Wound Length: 5.0 Wound Width: 6.5 Wound Depth: utd Percent of Wound Stepney/Red: 40 Percent of Wound Bed Yellow/Wh: 50 Percent of Wound Black/Brown: 10 Wound Drainage Description: Serosanguineous Wound Drainage Amount: Moderate Wound Drainage Odor: None/Absent Tissue Surrounding Wound: Macerated Wound General Appearance: Reddened, Draining, Necrotic - yellow brown, Muscle Visible Wound Assessment #2: Wound Number: 2 Wound Present on Admission: Yes New Wound: No Status Change of Wound: No Wound Location Body Site Modif: left, lateral Wound Location Body Site: malleolus/ankle Wound Type: pressure ulcer Janet Test: Does not Janet Pressure Ulcer Stage: IV Wound Thickness: Full Thickness Wound Length: 3.0 Wound Width: 3.0 Wound Depth: 0.3 Percent of Wound Stepney/Red: 90 Percent of Wound Bed Yellow/Wh: 5 Percent of Wound Purple/Maroon: 5 Wound Drainage Description: Serosanguineous Wound Drainage Amount: Moderate Wound Drainage Odor: None/Absent Tissue Surrounding Wound: Macerated Wound Undermining at 9:00: 0.5 - noted attaching to wound bed Wound General Appearance: Reddened, Draining, Necrotic - noted decrease in maroon color, noted 5% yellow appearing, Bone Palpable, Muscle Visible Wound Assessment #3: Wound Number: 3 Wound Present on Admission: Yes New Wound: No Status Change of Wound: No Wound Location Body Site Modif: right Wound Location Body Site: heel Wound Type: scar - full thickness scar tissue resolved with history of admitted with unstageable pressure ulcer. Janet Test: Does not Janet Wound Thickness: Full Thickness Percent of Wound Stepney/Red: 100 - scar pink Wound Drainage Amount: None Wound Drainage Odor: None/Absent Tissue Surrounding Wound: Intact Wound General Appearance: Clean/Dry Wound Assessment #4: Wound Number: 4 Wound Present on Admission: Yes New Wound: No Status Change of Wound: No Wound Location Body Site: perineal area Wound Type: erosion - resolving, appearing dry, clean Janet Test: Does not Janet Percent of Wound Stepney/Red: 100 Wound Drainage Amount: None Wound Drainage Odor: None/Absent Tissue Surrounding Wound: Intact Wound General Appearance: Reddened, Open to air, Clean/Dry Wound Assessment #5: Wound Number: 5 Wound Present on Admission: Yes New Wound: No Status Change of Wound: No Wound Location Body Site Modif: left Wound Location Body Site: metatarsal head - 1st Wound Type: pressure ulcer Janet Test: Does not Janet Pressure Ulcer Stage: Deep Tissue Injury Wound Thickness: Full Thickness Wound Length: 2.0 Wound Width: 2.0 Wound Depth: utd Percent of Wound Black/Brown: 100 - dry intact brown color Wound Drainage Amount: None Wound Drainage Odor: None/Absent Tissue Surrounding Wound: Intact Wound General Appearance: Blackened - brown Wound Assessment #6: Wound Number: 6 Wound Present on Admission: Yes New Wound: No Status Change of Wound: No Wound Location Body Site Modif: right, mid, lateral Wound Location Body Site: foot Wound Type: pressure ulcer Janet Test: Does not Janet Pressure Ulcer Stage: Deep Tissue Injury Wound Thickness: Full Thickness Wound Length: 2.0 Wound Width: 2.0 Wound Depth: utd Percent of Wound Black/Brown: 100 - dry intact,brown color Wound Drainage Amount: None Wound Drainage Odor: None/Absent Tissue Surrounding Wound: Intact Wound General Appearance: Blackened - brown Wound Comment Reassessment- no further deterioration present to admitted wounds , continue wound care as recommended.effective. no new wounds present Follow up with MD for possible podiatry consult for wound on left ankle and possible consult for debridement to sacrococcygeal area. #1 Sacrococcygeal unstageable extending to left and right buttock pressure ulcer - - site remains as unstageable, continue wound care as recommended no further deterioration present. - no change in size however noted increase in granulation tissue present current wound care is effective, noted yellow and brown necrotic tissue registered dental assistant in color 40%PINK,50%YELLOW,10%BROWN/REEVES. #2 Left lateral malleolus stage IV pressure ulcer- -no further deterioration present 90% wound bed remains pink,5% maroon,5% yellow/white , noted undermining at 9:00 0.5cm no further deterioration or change in size however wound bed noted with increase in granulation tissue present. #3 Right heel resolving unstageable pressure ulcer- no further deterioration present resolved noted scar tissue intact . continue to monitor offload area keep clean and dry #4 Perineal Partial thickness erosion- noted good progress decrease in erosion noted, continue to keep clean and dry. #5 Left 1st metatarsal DTI pressure ulcer- remains as DTI. intact no change dry intact, continue to keep dry #6 Right lateral mid foot DTI pressure ulcer-remains as DTI.intact.no change dry intact, continue to keep dry #7 dry flaky skin on upper buttock by wound,-resolved. #8 left heel intact scar tissue Recommendation -Local wound care per protocol -Keep clean and dry -Turn and reposition -Optimize nutrition -Low air loss mattress -Offload both heels -Heel protector on both heels -Avoid shear and friction. -provide moisturizer to dry skin. -Assess and f/u accordingly for any changes of condition to skin noted ALEJANDRO FLETCHER Jul 10, 2017 14:40
[2017-07-10] MEDS ORDERED: Vancomycin 1gm in D5W 275ml IVPB ONE (15:00)
--- NOTE | 2017-07-10 15:22 | Nephrology Progress Note ---
Assessment/Plan Problem List: (1) Healthcare-associated pneumonia (2) Malnutrition of moderate degree (3) End-stage renal disease (4) Respiratory failure (5) Septic shock Plan , meds reviewed for eskd,hypotension, mrsa sepsis, he isunable to sign as critically ill, hd via new cath 06/27 , flow variable observe hd 06/29,remains on pressors--off 1/5 am, hd 07/01 +07/04 still low-nl bp , unresponsive, poor prognosis hd 07/06next 07/08--poor cath needs new hd cath--to be done 07/11 Subjective ROS Limited/Unobtainable: Yes Objective Objective Last 24 Hour Vital Signs Date Time Temp Pulse Resp B/P (MAP) Pulse Ox O2 Delivery O2 Flow Rate FiO2 07/10/17 12:00 96.4 97 24 120/73 98 Nasal Cannula 2.0 07/10/17 11:44 96 07/10/17 11:27 89 18 98 Nasal Cannula 4.0 36 07/10/17 11:18 36 07/10/17 11:18 100 18 93 Nasal Cannula 4.0 36 07/10/17 08:52 118 153/95 07/10/17 08:10 106 07/10/17 08:00 96.3 118 22 153/95 92 Nasal Cannula 2.0 07/10/17 07:54 105 18 98 Nasal Cannula 4.0 36 07/10/17 07:44 28 07/10/17 07:44 Nasal Cannula 4.0 36 07/10/17 07:44 98 Nasal Cannula 4.0 36 07/10/17 07:44 102 18 89 Nasal Cannula 2.0 28 07/10/17 04:00 96.5 99 20 132/69 98 Nasal Cannula 2.0 99 99 07/10/17 04:00 98 07/10/17 03:35 88 20 99 Nasal Cannula 2.0 28 07/10/17 03:07 90 20 100 Nasal Cannula 2.0 28 07/10/17 03:07 28 07/10/17 00:00 90 07/10/17 00:00 96.1 96 20 125/75 100 Nasal Cannula 2.0 96 96 07/09/17 23:30 86 20 100 Nasal Cannula 2.0 28 07/09/17 23:24 28 07/09/17 23:23 86 20 100 Mechanical Ventilator 2.0 28 07/09/17 21:14 96.8 86 20 118/68 100 Mechanical Ventilator 86 86 07/09/17 20:06 94 117/63 07/09/17 20:00 96.8 86 20 118/68 100 Room Air 86 86 07/09/17 20:00 103 07/09/17 19:34 94 21 96 Nasal Cannula 2.0 28 07/09/17 19:09 28 07/09/17 19:08 Nasal Cannula 2.0 28 07/09/17 19:08 94 21 96 Nasal Cannula 2.0 28 07/09/17 19:05 96 Nasal Cannula 2.0 28 07/09/17 16:01 94 07/09/17 16:00 97.5 98 21 117/63 99 Nasal Cannula 2.0 07/09/17 15:25 92 18 100 Nasal Cannula 2.0 28 Intake and Output 07/09/17 07/10/17 19:00 07:00 Intake Total 270 ml Balance 270 ml Tube Feeding 240 ml Other 30 ml # Voids 2 Laboratory Tests 07/10/17 04:00: White Blood Count 8.6, Red Blood Count 3.10L, Hemoglobin 9.0L, Hematocrit 28.0L , Mean Corpuscular Volume 90, Mean Corpuscular Hemoglobin 29.0, Mean Corpuscular Hemoglobin Concent 32.1, Red Cell Distribution Width 19.6H, Platelet Count 501H, Mean Platelet Volume 6.0L, Neutrophils (%) (Auto) 55.7, Lymphocytes (%) (Auto) 29.6, Monocytes (%) (Auto) 11.4H, Eosinophils (%) (Auto) 2.7, Basophils (%) (Auto) 0.6, Sodium Level 139, Potassium Level 3.9, Chloride Level 103, Carbon Dioxide Level 25, Anion Gap 11, Blood Urea Nitrogen 49H, Creatinine 4.8H, Estimat Glomerular Filtration Rate , Glucose Level 96, Calcium Level 8.1L, Magnesium Level 2.2, Total Bilirubin 0.6, Aspartate Amino Transf ( AST/SGOT) 80H, Alanine Aminotransferase (ALT/SGPT) 51, Alkaline Phosphatase 284H , Total Protein 7.5, Albumin 1.4L, Globulin 6.1, Albumin/Globulin Ratio 0.2L 07/10/17 09:30: Prothrombin Time 12.7H, Prothromb Time International Ratio 1.2H, Activated Partial Thromboplast Time 38H Height (Feet): 5 Height (Inches): 10.00 Weight (Pounds): 174 General Appearance: mild distress EENT: normal ENT inspection Neck: normal alignment Cardiovascular: regular rhythm Respiratory/Chest: rhonchi - bilaterally Abdomen: non tender Neurologic: unresponsive LEONORA HUI Jul 10, 2017 15:22
[2017-07-10 16:00] VITALS: BP 124/67
--- NOTE | 2017-07-10 17:38 | Infectious Diseases Prog Note ---
Assessment/Plan Assessment/Plan A 1. MRSA sepsis s/p catheter removal 2. septic shock resolved 3. respiratory failure 4. renal failure, ESRD 5. staph aureus , Enterobacter pneumonia P 1. continue vancomycin iv X 6 days Subjective ROS Limited/Unobtainable: Yes Allergies: Coded Allergies: No Known Allergies (Unverified , 06/18/17) Objective Vital Signs Last 24 Hour Vital Signs Date Time Temp Pulse Resp B/P (MAP) Pulse Ox O2 Delivery O2 Flow Rate FiO2 07/10/17 16:00 97.2 98 24 124/67 100 Nasal Cannula 2.0 07/10/17 16:00 97 07/10/17 15:36 99 18 99 Nasal Cannula 4.0 36 07/10/17 15:22 96 21 99 Nasal Cannula 4.0 36 07/10/17 15:22 36 07/10/17 12:00 96.4 97 24 120/73 98 Nasal Cannula 2.0 07/10/17 11:44 96 07/10/17 11:27 89 18 98 Nasal Cannula 4.0 36 07/10/17 11:18 36 07/10/17 11:18 100 18 93 Nasal Cannula 4.0 36 07/10/17 08:52 118 153/95 07/10/17 08:10 106 07/10/17 08:00 96.3 118 22 153/95 92 Nasal Cannula 2.0 07/10/17 07:54 105 18 98 Nasal Cannula 4.0 36 07/10/17 07:44 28 07/10/17 07:44 Nasal Cannula 4.0 36 07/10/17 07:44 98 Nasal Cannula 4.0 36 07/10/17 07:44 102 18 89 Nasal Cannula 2.0 28 07/10/17 04:00 96.5 99 20 132/69 98 Nasal Cannula 2.0 99 99 07/10/17 04:00 98 07/10/17 03:35 88 20 99 Nasal Cannula 2.0 28 07/10/17 03:07 90 20 100 Nasal Cannula 2.0 28 07/10/17 03:07 28 07/10/17 00:00 90 07/10/17 00:00 96.1 96 20 125/75 100 Nasal Cannula 2.0 96 96 07/09/17 23:30 86 20 100 Nasal Cannula 2.0 28 07/09/17 23:24 28 07/09/17 23:23 86 20 100 Mechanical Ventilator 2.0 28 07/09/17 21:14 96.8 86 20 118/68 100 Mechanical Ventilator 86 86 07/09/17 20:06 94 117/63 07/09/17 20:00 96.8 86 20 118/68 100 Room Air 86 86 07/09/17 20:00 103 07/09/17 19:34 94 21 96 Nasal Cannula 2.0 28 07/09/17 19:09 28 07/09/17 19:08 Nasal Cannula 2.0 28 07/09/17 19:08 94 21 96 Nasal Cannula 2.0 28 07/09/17 19:05 96 Nasal Cannula 2.0 28 Height (Feet): 5 Height (Inches): 10.00 Weight (Pounds): 174 General Appearance: no acute distress HEENT: mucous membranes moist Respiratory/Chest: lungs clear Cardiovascular: normal rate, other - left IJ Hamilton catheter Abdomen: soft, non tender, other - NG tube Extremities: no edema Neurologic/Psychiatric: alert, aphasia Laboratory Tests Test 07/10/17 04:00 07/10/17 09:30 White Blood Count 8.6 K/UL (4.8-10.8) Red Blood Count 3.10 M/UL (4.70-6.10) L Hemoglobin 9.0 G/DL (14.2-18.0) L Hematocrit 28.0 % (42.0-52.0) L Mean Corpuscular Volume 90 FL (80-99) Mean Corpuscular Hemoglobin 29.0 PG (27.0-31.0) Mean Corpuscular Hemoglobin Concent 32.1 G/DL (32.0-36.0) Red Cell Distribution Width 19.6 % (11.6-14.8) H Platelet Count 501 K/UL (150-450) H Mean Platelet Volume 6.0 FL (6.5-10.1) L Neutrophils (%) (Auto) 55.7 % (45.0-75.0) Lymphocytes (%) (Auto) 29.6 % (20.0-45.0) Monocytes (%) (Auto) 11.4 % (1.0-10.0) H Eosinophils (%) (Auto) 2.7 % (0.0-3.0) Basophils (%) (Auto) 0.6 % (0.0-2.0) Sodium Level 139 MMOL/L (136-145) Potassium Level 3.9 MMOL/L (3.5-5.1) Chloride Level 103 MMOL/L (98-107) Carbon Dioxide Level 25 MMOL/L (21-32) Anion Gap 11 mmol/L (5-15) Blood Urea Nitrogen 49 mg/dL (7-18) H Creatinine 4.8 MG/DL (0.55-1.30) H Estimat Glomerular Filtration Rate mL/min (>60) Glucose Level 96 MG/DL (74-106) Calcium Level 8.1 MG/DL (8.5-10.1) L Magnesium Level 2.2 MG/DL (1.8-2.4) Total Bilirubin 0.6 MG/DL (0.2-1.0) Aspartate Amino Transf (AST/SGOT) 80 U/L (15-37) H Alanine Aminotransferase (ALT/SGPT) 51 U/L (12-78) Alkaline Phosphatase 284 U/L (46-116) H Total Protein 7.5 G/DL (6.4-8.2) Albumin 1.4 G/DL (3.4-5.0) L Globulin 6.1 g/dL Albumin/Globulin Ratio 0.2 (1.0-2.7) L Prothrombin Time 12.7 SEC (9.30-11.50) H Prothromb Time International Ratio 1.2 (0.9-1.1) H Activated Partial Thromboplast Time 38 SEC (23-33) H Current Medications Medications (Trade) Dose Ordered Sig/Jaime Route PRN Reason Start Time Stop Time Status Last Admin Dose Admin Acetaminophen (Tylenol) 650 mg Q4H PRN RECTAL Prn Headache/Temp > 101 07/08/17 17:00 07/18/17 20:59 Albuterol/ Ipratropium (Albuterol/ Ipratropium) 3 ml Q4HRT HHN 07/08/17 19:00 07/12/17 10:59 07/10/17 15:22 Aspirin (ASA) 81 mg DAILY NG 07/09/17 09:00 07/19/17 18:59 07/09/17 08:40 Chlorhexidine Gluconate (Kati-Hex 2%) 1 applic Q24H TOPIC 07/08/17 20:00 07/19/17 19:59 07/09/17 20:06 Dextrose (Dextrose 50%) STAT PRN IV Hypoglycemia 07/09/17 13:00 07/19/17 12:59 Epoetin Russ (Procrit (for ESRD on dialysis)) 5,000 units MON-WED-MON SUBQ 07/10/17 21:00 07/21/17 20:59 Heparin Sodium (Porcine) (Heparin 5000 units/ml) 5,000 units EVERY 12 HOURS SUBQ 07/08/17 21:00 07/18/17 20:59 07/09/17 08:44 Heparin Sodium (Porcine) (Heparin Sod 1000 units/ml 10ml) 2,000 unit ONCE ONCE IV 07/11/17 15:30 07/11/17 15:31 Insulin Aspart (NovoLOG) EVERY 6 HOURS SUBQ 07/08/17 18:00 07/19/17 17:59 07/09/17 17:12 Lansoprazole (Prevacid) 30 mg DAILY GT 07/09/17 09:00 07/19/17 08:59 07/10/17 08:52 Metoprolol Tartrate (Lopressor) 25 mg Q12HR ORAL 07/09/17 09:00 08/08/17 08:59 07/10/17 08:52 Sodium Chloride 550 ml @ 500 mls/hr Q1H6M PRN IV sbp<90 during hd 07/08/17 16:00 07/27/17 11:08 Sodium Chloride 1,000 ml @ 500 mls/hr Q2H PRN IVLG sbp<90 during hd 07/11/17 15:22 08/10/17 15:21 Vancomycin HCl (Vanco rx to dose) 1 ea DAILY PRN MISC Per rx protocol 07/09/17 14:15 08/08/17 14:14 ZAIRA ROBLES Jul 10, 2017 17:38
[2017-07-10] MEDS: Dyna-Hex 2% Top Sol 2oz TOPIC SCH (19:59)
[2017-07-10 20:00] VITALS: BP 112/67
[2017-07-10] MEDS: Epogen (for ESRD on dialysis) SUBQ SCH (20:31)
[2017-07-11] VITALS: BP 125/75
[2017-07-11] MEDS: Albuterol/Ipratropium 3ml neb HHN SCH ×6 (03:06→22:45)
--- NOTE | 2017-07-11 03:31 | Progress Note ---
DATE: 07/10/2017 CARDIOLOGY PROGRESS NOTE SUBJECTIVE: No respiratory distress. Failed swallow evaluation. OBJECTIVE: LUNGS: Coarse breath sounds. Scattered rhonchi. HEART: Regular rhythm and rate. Normal S1, S2. ABDOMEN: Soft. EXTREMITIES: No edema. IMPRESSION: 1. Status post respiratory failure. 2. Healthcare-acquired pneumonia. 3. End-stage renal disease. 4. Line sepsis with shock, now recovered. 5. Dysphagia. 6. [id number] protein-calorie malnutrition. 7. Acute myocardial infarction. PLAN: 1. New dialysis catheter planned. 2. Continue antimicrobials. 3. Respiratory hygiene. 4. He will need a percutaneous endoscopic gastrostomy for safe adequate nutrition. 5. DNR/DNI. 6. Hemodialysis with ultrafiltration for volume management. Gurdeep Harvey M.D. DR: ROMAIN JOB#: [id number] CC:
[2017-07-11 04:00] VITALS: BP 137/74
[2017-07-11] MEDS: NovoLOG Insulin Flexpen SUBQ SCH ×5 (06:00→23:41)
[2017-07-11 08:00] VITALS: BP 131/75
[2017-07-11] MEDS: Aspirin Baby 81mg NG SCH (08:00)
[2017-07-11] MEDS: Heparin 5000 units/ml inj SUBQ SCH ×2 (08:01→20:33)
[2017-07-11] MEDS: Metoprolol 25mg tab ORAL SCH ×2 (08:58→20:31)
[2017-07-11] MEDS: Heparin Sod 1000 units/ml 10ml IV ONE ×2 (11:12→11:52)
[2017-07-11 12:00] VITALS: BP 128/62
--- NOTE | 2017-07-11 12:35 | General Progress Note ---
Assessment/Plan Problem List: (1) Catheter-related bloodstream infection ICD Codes: T80.211A - Bloodstream infection due to central venous catheter, initial encounter SNOMED: 192422031 (2) Renal failure ICD Codes: N19 - Unspecified kidney failure SNOMED: 70088945 (3) Septic shock ICD Codes: A41.9 - Sepsis, unspecified organism; R65.21 - Severe sepsis with septic shock SNOMED: 04910572 (4) Respiratory failure ICD Codes: J96.90 - Respiratory failure, unspecified, unspecified whether with hypoxia or hypercapnia SNOMED: 713806626 (5) Malnutrition of moderate degree ICD Codes: E44.0 - Moderate protein-calorie malnutrition SNOMED: 843562783 (6) End-stage renal disease ICD Codes: N18.6 - End stage renal disease SNOMED: 12741826 (7) Healthcare-associated pneumonia ICD Codes: J18.9 - Pneumonia, unspecified organism SNOMED: 606788012 Status: stable, progressing Assessment/Plan cont iv abx per id HD as tolerated resp rx feeds via ngt/ogt new perm cath gi eval for gt dvt/stress ulcer prophyalxi monitor h/h transfuse as needed epo/iron guarded but improving dnr Subjective ROS Limited/Unobtainable: Yes Constitutional: Reports: malaise, weakness HEENT: Reports: no symptoms Cardiovascular: Reports: no symptoms Respiratory: Reports: cough, sputum Gastrointestinal/Abdominal: Reports: difficulty swallowing Genitourinary: Reports: no symptoms Neurologic/Psychiatric: Reports: pre-existing deficit Endocrine: Reports: no symptoms Hematologic/Lymphatic: Reports: no symptoms Allergies: Coded Allergies: No Known Allergies (Unverified , 06/18/17) All Systems: reviewed and negative except above Subjective failed swallow eval. intermittently alert but not able to follow commands. intermittent congestion. npo for perm cath. Objective Last 24 Hour Vital Signs Date Time Temp Pulse Resp B/P (MAP) Pulse Ox O2 Delivery O2 Flow Rate FiO2 07/11/17 12:00 97.7 88 18 128/62 100 Nasal Cannula 2.0 07/11/17 11:09 98 Nasal Cannula 3.0 32 07/11/17 11:09 98 Nasal Cannula 3.0 32 07/11/17 11:00 Nasal Cannula 2.0 07/11/17 10:09 Nasal Cannula 2.0 07/11/17 08:58 105 131/75 07/11/17 08:00 97.6 105 19 131/75 100 Nasal Cannula 2.0 07/11/17 07:37 105 07/11/17 07:26 105 24 99 Nasal Cannula 3.0 32 07/11/17 07:15 102 18 99 Nasal Cannula 3.0 32 07/11/17 07:15 Nasal Cannula 3.0 32 07/11/17 07:15 99 Nasal Cannula 3.0 32 07/11/17 04:00 100 07/11/17 04:00 97.7 104 24 137/74 99 Nasal Cannula 2.0 07/11/17 03:17 85 20 99 Nasal Cannula 4.0 36 07/11/17 03:06 102 20 97 Nasal Cannula 4.0 36 07/11/17 00:00 97.6 99 24 125/75 99 Nasal Cannula 2.0 07/11/17 00:00 97.6 99 24 125/75 96 Nasal Cannula 4.0 07/11/17 00:00 94 07/10/17 23:07 98 20 96 Nasal Cannula 4.0 36 07/10/17 22:55 98 20 96 Nasal Cannula 4.0 36 07/10/17 20:35 101 115/67 07/10/17 20:00 105 07/10/17 20:00 97.6 99 24 112/67 100 Nasal Cannula 2.0 07/10/17 18:54 100 20 99 Nasal Cannula 4.0 36 07/10/17 18:36 Nasal Cannula 4.0 36 07/10/17 18:36 95 Nasal Cannula 4.0 36 07/10/17 18:35 101 20 95 Nasal Cannula 4.0 36 07/10/17 16:00 97.2 98 24 124/67 100 Nasal Cannula 2.0 07/10/17 16:00 97 07/10/17 15:36 99 18 99 Nasal Cannula 4.0 36 07/10/17 15:22 96 21 99 Nasal Cannula 4.0 36 07/10/17 15:22 36 Intake and Output 07/10/17 07/11/17 19:00 07:00 Intake Total 535.000 ml 200 ml Output Total 5 ml 50 ml Balance 530.000 ml 150 ml IV Total 275.000 ml Tube Feeding 200 ml 200 ml Other 60 ml Output Urine Total 5 ml 50 ml # Bowel Movements 4 Height (Feet): 5 Height (Inches): 10.00 Weight (Pounds): 174 Objective General Appearance: WD/WN, alert, confused Neck: supple Cardiovascular: regular rhythm Respiratory/Chest: chest wall non-tender, few rhonchi, normal breath sounds, no respiratory distress Abdomen: normal bowel sounds, non tender, soft, no organomegaly, no mass Edema: no edema noted Arm (L), no edema noted Arm (R), no edema noted Leg (L), no edema noted Leg (R), no edema noted Pedal (L), no edema noted Pedal (R), no edema noted Generalized Neurologic: more alert, aphasia KEENA BRANDT Jul 11, 2017 12:34
--- NOTE | 2017-07-11 13:32 | Nephrology Progress Note ---
Assessment/Plan Problem List: (1) Healthcare-associated pneumonia (2) Malnutrition of moderate degree (3) End-stage renal disease (4) Respiratory failure (5) Septic shock Plan , meds reviewed for eskd,hypotension, mrsa sepsis, he isunable to sign as critically ill, hd via new cath 06/27 , flow variable observe hd 06/29,remains on pressors--off 1/5 am, hd 07/11 poor cath flow needs new cath Subjective ROS Limited/Unobtainable: Yes Constitutional: Reports: weakness Objective Objective Last 24 Hour Vital Signs Date Time Temp Pulse Resp B/P (MAP) Pulse Ox O2 Delivery O2 Flow Rate FiO2 07/11/17 12:00 95 07/11/17 12:00 97.7 88 18 128/62 100 Nasal Cannula 2.0 07/11/17 11:09 98 Nasal Cannula 3.0 32 07/11/17 11:09 98 Nasal Cannula 3.0 32 07/11/17 11:00 Nasal Cannula 2.0 07/11/17 10:09 Nasal Cannula 2.0 07/11/17 08:58 105 131/75 07/11/17 08:00 97.6 105 19 131/75 100 Nasal Cannula 2.0 07/11/17 07:37 105 07/11/17 07:26 105 24 99 Nasal Cannula 3.0 32 07/11/17 07:15 102 18 99 Nasal Cannula 3.0 32 07/11/17 07:15 Nasal Cannula 3.0 32 07/11/17 07:15 99 Nasal Cannula 3.0 32 07/11/17 04:00 100 07/11/17 04:00 97.7 104 24 137/74 99 Nasal Cannula 2.0 07/11/17 03:17 85 20 99 Nasal Cannula 4.0 36 07/11/17 03:06 102 20 97 Nasal Cannula 4.0 36 07/11/17 00:00 97.6 99 24 125/75 99 Nasal Cannula 2.0 07/11/17 00:00 97.6 99 24 125/75 96 Nasal Cannula 4.0 07/11/17 00:00 94 07/10/17 23:07 98 20 96 Nasal Cannula 4.0 36 07/10/17 22:55 98 20 96 Nasal Cannula 4.0 36 07/10/17 20:35 101 115/67 07/10/17 20:00 105 1/15/18 20:00 97.6 99 24 112/67 100 Nasal Cannula 2.0 07/10/17 18:54 100 20 99 Nasal Cannula 4.0 36 07/10/17 18:36 Nasal Cannula 4.0 36 07/10/17 18:36 95 Nasal Cannula 4.0 36 07/10/17 18:35 101 20 95 Nasal Cannula 4.0 36 07/10/17 16:00 97.2 98 24 124/67 100 Nasal Cannula 2.0 07/10/17 16:00 97 07/10/17 15:36 99 18 99 Nasal Cannula 4.0 36 07/10/17 15:22 96 21 99 Nasal Cannula 4.0 36 07/10/17 15:22 36 Intake and Output 07/10/17 07/11/17 19:00 07:00 Intake Total 535.000 ml 200 ml Output Total 5 ml 50 ml Balance 530.000 ml 150 ml IV Total 275.000 ml Tube Feeding 200 ml 200 ml Other 60 ml Output Urine Total 5 ml 50 ml # Bowel Movements 4 Height (Feet): 5 Height (Inches): 10.00 Weight (Pounds): 174 General Appearance: no apparent distress, thin EENT: normal ENT inspection Neck: normal alignment Cardiovascular: normal rate Respiratory/Chest: rhonchi - bilaterally Abdomen: non tender Extremities: slow capillary refill Neurologic: disoriented LEONORA HUI Jul 11, 2017 13:32
--- NOTE | 2017-07-11 13:56 | Consultation ---
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
--- NOTE | 2017-07-11 14:06 | Infectious Diseases Prog Note ---
"Assessment/Plan Assessment/Plan antibiotics : vancomycin iv A 1. MRSA sepsis s/p catheter removal 2. septic shock 3. respiratory failure resolved 4. renal failure 5. MRSA | enterobacter pneumonia 6. leucocytosis resolved 7. left ankle ulcer r/o osteomyelitis P 1. continue vancomycin iv 5 more days 2. will follow up cultures 3. left ankle cultures 4. CT left ankle Subjective ROS Limited/Unobtainable: Yes Allergies: Coded Allergies: No Known Allergies (Unverified , 06/18/17) Objective Vital Signs Last 24 Hour Vital Signs Date Time Temp Pulse Resp B/P (MAP) Pulse Ox O2 Delivery O2 Flow Rate FiO2 07/11/17 12:00 95 07/11/17 12:00 97.7 88 18 128/62 100 Nasal Cannula 2.0 07/11/17 11:09 98 Nasal Cannula 3.0 32 07/11/17 11:09 98 Nasal Cannula 3.0 32 07/11/17 11:00 Nasal Cannula 2.0 07/11/17 10:09 Nasal Cannula 2.0 07/11/17 08:58 105 131/75 07/11/17 08:00 97.6 105 19 131/75 100 Nasal Cannula 2.0 07/11/17 07:37 105 07/11/17 07:26 105 24 99 Nasal Cannula 3.0 32 07/11/17 07:15 102 18 99 Nasal Cannula 3.0 32 07/11/17 07:15 Nasal Cannula 3.0 32 07/11/17 07:15 99 Nasal Cannula 3.0 32 07/11/17 04:00 100 07/11/17 04:00 97.7 104 24 137/74 99 Nasal Cannula 2.0 07/11/17 03:17 85 20 99 Nasal Cannula 4.0 36 07/11/17 03:06 102 20 97 Nasal Cannula 4.0 36 07/11/17 00:00 97.6 99 24 125/75 99 Nasal Cannula 2.0 07/11/17 00:00 97.6 99 24 125/75 96 Nasal Cannula 4.0 07/11/17 00:00 94 07/10/17 23:07 98 20 96 Nasal Cannula 4.0 36 07/10/17 22:55 98 20 96 Nasal Cannula 4.0 36 07/10/17 20:35 101 115/67 07/10/17 20:00 105 07/10/17 20:00 97.6 99 24 112/67 100 Nasal Cannula 2.0 07/10/17 18:54 100 20 99 Nasal Cannula 4.0 36 07/10/17 18:36 Nasal Cannula 4.0 36 07/10/17 18:36 95 Nasal Cannula 4.0 36 07/10/17 18:35 101 20 95 Nasal Cannula 4.0 36 07/10/17 16:00 97.2 98 24 124/67 100 Nasal Cannula 2.0 07/10/17 16:00 97 07/10/17 15:36 99 18 99 Nasal Cannula 4.0 36 07/10/17 15:22 96 21 99 Nasal Cannula 4.0 36 07/10/17 15:22 36 Height (Feet): 5 Height (Inches): 10.00 Weight (Pounds): 174 Respiratory/Chest: lungs clear Cardiovascular: normal rate, regular rhythm, no gallop/murmur Abdomen: soft, non tender Extremities: no edema, other - left IJ catheter, left lateral malleolus ulcer ARTIS SANTIAGO Jul 11, 2017 14:06"
--- NOTE | 2017-07-11 14:35 | Diagnostic Imaging Report ---
Indication: left ankle pain Comparison: None Findings: 3 views of the left ankle obtained. Soft tissue swelling is present. Alignment of the ankle is normal. No fracture identified. Bones are osteopenic. No erosion or periostitis identified. IMPRESSION: No plain film evidence for osteomyelitis
--- NOTE | 2017-07-11 14:37 | Pulmonology Progress Note ---
Assessment/Plan Assessment/Plan 1. Respiratory failure. 2. Sepsis with shock. 3. Dialysis catheter sepsis 4. Stroke with dementia and right hemiparesis. 5. Diabetes. confused very weak on HD nebs and suction abx per id DNR/DNI HHN O2 prognosis guarded favor comfort care Subjective ROS Limited/Unobtainable: Yes Allergies: Coded Allergies: No Known Allergies (Unverified , 06/18/17) Objective Last 24 Hour Vital Signs Date Time Temp Pulse Resp B/P (MAP) Pulse Ox O2 Delivery O2 Flow Rate FiO2 07/11/17 12:00 95 07/11/17 12:00 97.7 88 18 128/62 100 Nasal Cannula 2.0 07/11/17 11:09 98 Nasal Cannula 3.0 32 07/11/17 11:09 98 Nasal Cannula 3.0 32 07/11/17 11:00 Nasal Cannula 2.0 07/11/17 10:09 Nasal Cannula 2.0 07/11/17 08:58 105 131/75 07/11/17 08:00 97.6 105 19 131/75 100 Nasal Cannula 2.0 07/11/17 07:37 105 07/11/17 07:26 105 24 99 Nasal Cannula 3.0 32 07/11/17 07:15 102 18 99 Nasal Cannula 3.0 32 07/11/17 07:15 Nasal Cannula 3.0 32 07/11/17 07:15 99 Nasal Cannula 3.0 32 07/11/17 04:00 100 07/11/17 04:00 97.7 104 24 137/74 99 Nasal Cannula 2.0 07/11/17 03:17 85 20 99 Nasal Cannula 4.0 36 07/11/17 03:06 102 20 97 Nasal Cannula 4.0 36 07/11/17 00:00 97.6 99 24 125/75 99 Nasal Cannula 2.0 07/11/17 00:00 97.6 99 24 125/75 96 Nasal Cannula 4.0 07/11/17 00:00 94 07/10/17 23:07 98 20 96 Nasal Cannula 4.0 36 07/10/17 22:55 98 20 96 Nasal Cannula 4.0 36 07/10/17 20:35 101 115/67 07/10/17 20:00 105 07/10/17 20:00 97.6 99 24 112/67 100 Nasal Cannula 2.0 07/10/17 18:54 100 20 99 Nasal Cannula 4.0 36 07/10/17 18:36 Nasal Cannula 4.0 36 07/10/17 18:36 95 Nasal Cannula 4.0 36 07/10/17 18:35 101 20 95 Nasal Cannula 4.0 36 07/10/17 16:00 97.2 98 24 124/67 100 Nasal Cannula 2.0 07/10/17 16:00 97 07/10/17 15:36 99 18 99 Nasal Cannula 4.0 36 07/10/17 15:22 96 21 99 Nasal Cannula 4.0 36 07/10/17 15:22 36 Intake and Output 07/10/17 07/11/17 19:00 07:00 Intake Total 535.000 ml 200 ml Output Total 5 ml 50 ml Balance 530.000 ml 150 ml IV Total 275.000 ml Tube Feeding 200 ml 200 ml Other 60 ml Output Urine Total 5 ml 50 ml # Bowel Movements 4 General Appearance: no acute distress HEENT: atraumatic Respiratory/Chest: rhonchi Cardiovascular: normal rate Current Medications Medications (Trade) Dose Ordered Sig/Jaime Route PRN Reason Start Time Stop Time Status Last Admin Dose Admin Acetaminophen (Tylenol) 650 mg Q4H PRN RECTAL Prn Headache/Temp > 101 07/08/17 17:00 07/18/17 20:59 Albuterol/ Ipratropium (Albuterol/ Ipratropium) 3 ml Q4HRT HHN 07/08/17 19:00 07/12/17 10:59 07/11/17 07:14 Aspirin (ASA) 81 mg DAILY NG 07/09/17 09:00 07/19/17 18:59 07/09/17 08:40 Chlorhexidine Gluconate (Kati-Hex 2%) 1 applic Q24H TOPIC 07/08/17 20:00 07/19/17 19:59 07/10/17 19:59 Dextrose (Dextrose 50%) STAT PRN IV Hypoglycemia 07/09/17 13:00 07/19/17 12:59 Epoetin Russ (Procrit (for ESRD on dialysis)) 5,000 units MON-WED-FRI SUBQ 07/10/17 21:00 07/21/17 20:59 07/10/17 20:31 Heparin Sodium (Porcine) (Heparin 5000 units/ml) 5,000 units EVERY 12 HOURS SUBQ 07/08/17 21:00 07/18/17 20:59 07/10/17 20:34 Heparin Sodium (Porcine) (Heparin Sod 1000 units/ml 10ml) 2,000 unit ONCE ONCE IV 07/11/17 15:30 07/11/17 15:31 07/11/17 11:52 Insulin Aspart (NovoLOG) EVERY 6 HOURS SUBQ 07/08/17 18:00 07/19/17 17:59 07/09/17 17:12 Lansoprazole (Prevacid) 30 mg DAILY GT 07/09/17 09:00 07/19/17 08:59 07/11/17 08:58 Metoprolol Tartrate (Lopressor) 25 mg Q12HR ORAL 07/09/17 09:00 08/08/17 08:59 07/11/17 08:58 Sodium Chloride 550 ml @ 500 mls/hr Q1H6M PRN IV sbp<90 during hd 07/08/17 16:00 07/27/17 11:08 Sodium Chloride 1,000 ml @ 500 mls/hr Q2H PRN IVLG sbp<90 during hd 07/11/17 15:22 08/10/17 15:21 Vancomycin HCl (Vanco rx to dose) 1 ea DAILY PRN MISC Per rx protocol 07/09/17 14:15 08/08/17 14:14 PEG MARTINEZ Jul 11, 2017 14:37
[2017-07-11 16:00] VITALS: BP 134/76
[2017-07-11 20:00] VITALS: BP 129/74
[2017-07-11] MEDS: Dyna-Hex 2% Top Sol 2oz TOPIC SCH (20:31)
--- NOTE | 2017-07-11 21:47 | Consultation ---
DATE OF CONSULTATION: 07/11/2017 CONSULTING PHYSICIAN: Barrett Long D.P.M. REQUESTING PHYSICIAN: Benjie Kraft M.D. REASON FOR CONSULTATION: Chronic left ankle ulcer. HISTORY OF PRESENT ILLNESS: The patient is an 82-year-old male, who was admitted to [facility] on 06/18/2017 for respiratory failure and septic shock. The patient is nonverbal and history was obtained through chart review. The patient has had a lengthy stay at [place] and has been treated for multiple medical conditions. Podiatry is consulted for chronic ulceration of the left ankle of unknown duration. PAST MEDICAL HISTORY: Significant for end-stage renal disease, type 2 diabetes mellitus, and cerebrovascular accident with right-sided hemiparesis. ALLERGIES: He has no known drug allergies. MEDICATIONS: Per MAR and include Procrit, vancomycin, 81 mg aspirin, and heparin for DVT prophylaxis. FAMILY HISTORY: Noncontributory. SOCIAL HISTORY: The patient resides in a intermediate facility. REVIEW OF SYSTEMS: Unobtainable. PHYSICAL EXAMINATION: VITAL SIGNS: Temperature is 97.5, pulse is 101, respiration is 18, and blood pressure is 134/76. He is saturating 97% on two liters. EXTREMITIES: Lower extremity physical exam, vascular palpable pedal pulses noted bilaterally. Feet are equally warm. There is 1+ pitting edema noted bilaterally. No cyanosis is noted. DERMATOLOGICAL: Right foot is unremarkable. Digital interspaces are clear. Left foot is unremarkable. Digital interspaces are clear. There is a full-thickness ulceration noted on the left ankle. It measures approximately 2.5 cm in diameter, it is full thickness. Capsule of the ankle joint is noted. There is a mild serous drainage noted from the site. There is no malodor. There is undermining noted in all directions. Does not probe to bone. Right ankle is unremarkable. MUSCULOSKELETAL: The patient is bedbound. Muscle atrophy is noted. LABORATORY DATA: White blood cell count is 8.6, down from 11.5, hemoglobin and hematocrit is 9.0 and 28.0, and platelet count is 501,000. Potassium is 3.9, BUN is 49, creatinine is 4.8, and glucose is 96. Albumin is 1.4. INR is 1.2. Hepatitis panel is negative except for hepatitis C antibody. IMAGING: There is no lower extremity imaging noted. ASSESSMENT: 1. Chronic ulcer of the left lateral ankle of unknown duration. 2. Abnormal mobility. 3. Diabetes mellitus. 4. End-stage renal disease. PLAN: 1. Extensive chart review was performed. 2. Continue q.2 hours turning. 3. Continual heel protectors bilateral. 4. Ordered wound care for the left ankle to consist of cleaning the site with NS padding dry and applying a double-layer of calcium alginate and a dry dressing. I also ordered to discontinue the Hydrogel. 5. Concern for osteomyelitis. Ordered x-ray of the left ankle. Might need advanced imaging for further evaluation. 6. We will follow, but the prognosis is poor, secondary to comorbidities including poor protein levels. Thank you for the courtesy of this consultation, Dr. Kraft. Barrett Long D.P.M. DR: IAN JOB#: [id number] CC:
--- NOTE | 2017-07-11 22:07 | General Progress Note ---
Assessment/Plan Assessment/Plan GI CONSULT ATSP for PEG placement. Dictated. No family or DPOA available. Will place PEG based on urgency and necessity of the intervention. Thank you Ladi Fox MD Subjective Allergies: Coded Allergies: No Known Allergies (Unverified , 06/18/17) Objective Last 24 Hour Vital Signs Date Time Temp Pulse Resp B/P (MAP) Pulse Ox O2 Delivery O2 Flow Rate FiO2 07/11/17 20:31 107 129/74 07/11/17 20:16 75 22 99 Nasal Cannula 2.0 28 07/11/17 20:06 71 20 95 Nasal Cannula 2.0 28 07/11/17 20:06 Nasal Cannula 3.0 32 07/11/17 20:06 95 Nasal Cannula 3.0 32 07/11/17 20:00 97.7 107 32 129/74 96 Nasal Cannula 2.0 07/11/17 16:00 97.5 101 18 134/76 97 Nasal Cannula 2.0 07/11/17 15:40 99 07/11/17 14:56 101 22 99 Nasal Cannula 2.0 28 07/11/17 14:47 98 20 99 Nasal Cannula 2.0 28 07/11/17 12:00 95 07/11/17 12:00 97.7 88 18 128/62 100 Nasal Cannula 2.0 07/11/17 11:09 98 Nasal Cannula 3.0 32 07/11/17 11:09 98 Nasal Cannula 3.0 32 07/11/17 11:00 Nasal Cannula 2.0 07/11/17 10:09 Nasal Cannula 2.0 07/11/17 08:58 105 131/75 07/11/17 08:00 97.6 105 19 131/75 100 Nasal Cannula 2.0 07/11/17 07:37 105 07/11/17 07:26 105 24 99 Nasal Cannula 3.0 32 07/11/17 07:15 102 18 99 Nasal Cannula 3.0 32 07/11/17 07:15 Nasal Cannula 3.0 32 07/11/17 07:15 99 Nasal Cannula 3.0 32 07/11/17 04:00 100 07/11/17 04:00 97.7 104 24 137/74 99 Nasal Cannula 2.0 07/11/17 03:17 85 20 99 Nasal Cannula 4.0 36 07/11/17 03:06 102 20 97 Nasal Cannula 4.0 36 07/11/17 00:00 97.6 99 24 125/75 99 Nasal Cannula 2.0 07/11/17 00:00 97.6 99 24 125/75 96 Nasal Cannula 4.0 07/11/17 00:00 94 07/10/17 23:07 98 20 96 Nasal Cannula 4.0 36 07/10/17 22:55 98 20 96 Nasal Cannula 4.0 36 Intake and Output 07/10/17 07/11/17 19:00 07:00 Intake Total 535.000 ml 200 ml Output Total 5 ml 50 ml Balance 530.000 ml 150 ml IV Total 275.000 ml Tube Feeding 200 ml 200 ml Other 60 ml Output Urine Total 5 ml 50 ml # Bowel Movements 4 Height (Feet): 5 Height (Inches): 10.00 Weight (Pounds): 174 THOMAS FOXADEN Jul 11, 2017 22:07
[2017-07-12] VITALS (15 sets, daily range): BP systolic 110–156; BP diastolic 68–103
[2017-07-12] MEDS: Albuterol/Ipratropium 3ml neb HHN SCH ×2 (03:54→07:28)
[2017-07-12] MEDS: NovoLOG Insulin Flexpen SUBQ SCH ×3 (06:00→18:00)
--- NOTE | 2017-07-12 06:15 | Progress Note ---
DATE: 07/11/2017 CARDIOLOGY PROGRESS NOTE SUBJECTIVE: The patient remains in the intensive care unit, off ventilator support. Stable respiratory parameters. OBJECTIVE: VITAL SIGNS: Blood pressure is 131/75, pulse 105, respiratory rate 19, and afebrile. He failed a swallow evaluation. LUNGS: Right hemiparesis. Bilateral breath sounds with rhonchi. HEART: Regular rhythm and rate. Normal S1, S2 with a fourth heart sound. ABDOMEN: Soft. NG tube in place. IMPRESSION: 1. Status post sepsis with shock. 2. Acute myocardial infarction. 3. Respiratory failure, status post extubation. 4. End-stage renal disease, on hemodialysis. 5. Dysphagia. 6. Secondary sinus tachycardia. 7. Acute on chronic diastolic congestive heart failure. PLAN: 1. Advance beta-lory. 2. Continue antimicrobials. 3. Respiratory hygiene. 4. G-tube for nutrition. 5. Medication regimen reviewed. 6. Discharge planning in progress. Permanent feeding tube was placed. Gurdeep Harvey M.D. DR: Liana JOB#: [id number] CC:
--- NOTE | 2017-07-12 08:30 | Consultation ---
DATE OF CONSULTATION: 07/11/2017 NOTE: POOR AUDIO GASTROENTEROLOGY CONSULTATION CONSULTING PHYSICIAN: Ladi Fox M.D. CHIEF COMPLAINT: I was asked to see this patient by Dr. Gurdeep Harvey for evaluation of gastrostomy tube placement. HISTORY OF PRESENT ILLNESS: The patient is an unfortunate 82-year-old debilitated man, who was brought in late May for respiratory failure and septic shock. The patient is nonverbal and unable to provide any history. Most of the information is only available from the chart. The patient has had a lengthy stay at [facility] and has been treated for multiple conditions and antibiotics and care. He has a nasogastric tube for feeding, but it needs to be converted to gastrostomy tube to reduce his possibility of reflux, aspiration, and nasogastric dislodgement. There is no family or durable power of band lining bander or next of kin available in the medical records. PAST MEDICAL HISTORY: History end-stage renal disease on dialysis, type 2 diabetes, cerebrovascular disease with stroke and right-sided hemiparesis. ALLERGIES: None known. SOCIAL HISTORY: The patient resides in a prison and requires [id number] care. FAMILY HISTORY: Noncontributory. REVIEW OF SYSTEMS: Otherwise negative and unobtainable. PHYSICAL EXAMINATION: GENERAL: Debilitated, man, seen in his room. HEENT: Normocephalic and atraumatic. Nasogastric tube is in place. Dentition is poor. NECK: Supple. CHEST: Revealed coarse breath sounds. CARDIOVASCULAR: Regular rate. ABDOMEN: Soft. Good bowel sounds. EXTREMITIES: Revealed trace edema. LABORATORY AND DIAGNOSTIC DATA: Laboratory data was noted. ASSESSMENT: This patient has had a stroke with now a long recent hospitalization involving sepsis with respiratory failure, overall significant functional decline. I suspected that his altered mental status is due to underlying stroke and dementia as well as possible component of toxic metabolic encephalopathy. . More importantly, he needs a gastrostomy tube to reduce his chance of further aspiration and/or tube dislodgement resulting in aspiration. Since there is no family available and this is an urgent issue, I would proceed with the placement of the gastrostomy tube. RECOMMENDATIONS: Per above discussion and per orders written in the chart. Thank you for asking me to participate in the care of this patient. Ladi Fox M.D. DR: Nadya JOB#: [id number] CC: AURELIO
[2017-07-12] MEDS: Aspirin Baby 81mg NG SCH (08:41)
[2017-07-12] MEDS: Metoprolol 25mg tab ORAL SCH ×2 (08:42→20:24)
[2017-07-12] MEDS: Heparin 5000 units/ml inj SUBQ SCH ×2 (09:00→20:26)
--- NOTE | 2017-07-12 09:16 | General Progress Note ---
Assessment/Plan Assessment/Plan Assessment - Dysphagia - OBS - abnormal LFT - renal failure - Anemia - CVA Recommendations - check abd U/S after EGD - check CPK - Check hepatitis serologies - PEG tomorrow am - need to place on urgent basis to avoid aspiration and malnutrition (No DPOA -will place on emergency basis) Subjective Allergies: Coded Allergies: No Known Allergies (Unverified , 06/18/17) Subjective above noted no events overnight non communicative Objective Last 24 Hour Vital Signs Date Time Temp Pulse Resp B/P (MAP) Pulse Ox O2 Delivery O2 Flow Rate FiO2 07/12/17 08:42 111 133/69 07/12/17 07:36 Nasal Cannula 2.0 28 07/12/17 07:25 113 22 100 Nasal Cannula 2.0 28 07/12/17 07:15 110 22 98 Nasal Cannula 2.0 28 07/12/17 07:14 99 Nasal Cannula 2.0 28 07/12/17 04:12 89 22 99 Nasal Cannula 2.0 28 07/12/17 04:03 116 07/12/17 04:00 98.3 116 24 134/79 99 Nasal Cannula 2.0 07/12/17 03:55 79 20 96 Nasal Cannula 2.0 28 07/12/17 00:00 97.7 109 24 123/68 96 Nasal Cannula 2.0 07/11/17 23:36 108 07/11/17 22:55 82 22 99 Nasal Cannula 2.0 28 07/11/17 22:45 84 20 95 Nasal Cannula 2.0 28 07/11/17 20:31 107 129/74 07/11/17 20:16 75 22 99 Nasal Cannula 2.0 28 07/11/17 20:06 71 20 95 Nasal Cannula 2.0 28 07/11/17 20:06 Nasal Cannula 3.0 32 07/11/17 20:06 95 Nasal Cannula 3.0 32 07/11/17 20:00 97.7 107 32 129/74 96 Nasal Cannula 2.0 07/11/17 19:15 100 07/11/17 16:00 97.5 101 18 134/76 97 Nasal Cannula 2.0 07/11/17 15:40 99 07/11/17 14:56 101 22 99 Nasal Cannula 2.0 28 07/11/17 14:47 98 20 99 Nasal Cannula 2.0 28 07/11/17 12:00 95 07/11/17 12:00 97.7 88 18 128/62 100 Nasal Cannula 2.0 07/11/17 11:09 98 Nasal Cannula 3.0 32 07/11/17 11:09 98 Nasal Cannula 3.0 32 07/11/17 11:00 Nasal Cannula 2.0 07/11/17 10:09 Nasal Cannula 2.0 Intake and Output 07/11/17 07/12/17 19:00 07:00 Intake Total 180 ml 200 ml Output Total 505 ml 350 ml Balance -325 ml -150 ml Tube Feeding 160 ml 160 ml Other 20 ml 40 ml Output Urine Total 5 ml 350 ml Hemodialysis UF 500 ml # Bowel Movements 1 Laboratory Tests 07/12/17 03:50: Random Vancomycin Level 26.5 Height (Feet): 5 Height (Inches): 10.00 Weight (Pounds): 173 Objective Debilitated AA man NCAT, (+) NGT supple CTA RRR abd soft ND NT no edema OBS MONIKA SMITH Jul 12, 2017 09:16
[2017-07-12] MEDS ORDERED: Heparin 2000 units/Ns 1000ml INJ SCH (13:00)
[2017-07-12] MEDS ORDERED: Heparin Sod 1000 units/ml 10ml INJ SCH (13:00)
[2017-07-12] MEDS ORDERED: Lidocaine 2% 20mg/ml/Epi 0.005mg/ml 20ml vial INJ SCH (13:00)
--- NOTE | 2017-07-12 13:05 | Pre-Procedure Note/Attestation ---
Pre-Procedure Note/Attestation Complete Prior to Procedure Planned Procedure: left Indications for Procedure Pre-Operative Diagnosis: requires hemodialysis access permacath Attestation I attest that I discussed the nature of the procedure; its benefits; risks and complications; and alternatives (and the risks and benefits of such alternatives ), prior to the procedure, with the patient (or the patient's legal customer account representative). I attest that, if there was a reasonable possibility of needing a blood transfusion, the patient (or the patient's legal customer account representative) was given the [facility] standardized written summary, pursuant to the Deangelo James Blood Safety Act ([place] Health and Safety Code # 1645, as amended). I attest that I re-evaluated the patient just prior to the surgery and that there has been no change in the patient's H&P, except as documented below: HAILEE BURCH M.D. Jul 12, 2017 13:05
--- NOTE | 2017-07-12 13:27 | Infectious Diseases Prog Note ---
"Assessment/Plan Assessment/Plan antibiotics : vancomycin iv A 1. MRSA sepsis s/p catheter removal 2. septic shock 3. respiratory failure resolved 4. renal failure 5. MRSA | enterobacter pneumonia 6. leucocytosis resolved 7. left ankle ulcer r/o osteomyelitis P 1. continue vancomycin iv 4 more days 2. will follow up cultures 3. CT left ankle, patient needs it to rule out osteomyelitis, no family member around Subjective ROS Limited/Unobtainable: Yes Allergies: Coded Allergies: No Known Allergies (Unverified , 06/18/17) Objective Vital Signs Last 24 Hour Vital Signs Date Time Temp Pulse Resp B/P (MAP) Pulse Ox O2 Delivery O2 Flow Rate FiO2 07/12/17 12:40 98 18 3.0 07/12/17 12:01 108 22 100 Nasal Cannula 2.0 28 07/12/17 12:00 98.1 94 18 114/69 96 Nasal Cannula 2.0 07/12/17 12:00 96 07/12/17 11:53 110 22 100 Nasal Cannula 2.0 28 07/12/17 11:44 106 20 98 Nasal Cannula 2.0 28 07/12/17 08:42 111 133/69 07/12/17 08:00 111 07/12/17 08:00 97.8 111 18 133/69 98 Nasal Cannula 2.0 07/12/17 07:36 Nasal Cannula 2.0 28 07/12/17 07:25 113 22 100 Nasal Cannula 2.0 28 07/12/17 07:15 110 22 98 Nasal Cannula 2.0 28 07/12/17 07:14 99 Nasal Cannula 2.0 28 07/12/17 04:12 89 22 99 Nasal Cannula 2.0 28 07/12/17 04:03 116 07/12/17 04:00 98.3 116 24 134/79 99 Nasal Cannula 2.0 07/12/17 03:55 79 20 96 Nasal Cannula 2.0 28 07/12/17 00:00 97.7 109 24 123/68 96 Nasal Cannula 2.0 07/11/17 23:36 108 07/11/17 22:55 82 22 99 Nasal Cannula 2.0 28 07/11/17 22:45 84 20 95 Nasal Cannula 2.0 28 07/11/17 20:31 107 129/74 07/11/17 20:16 75 22 99 Nasal Cannula 2.0 28 07/11/17 20:06 71 20 95 Nasal Cannula 2.0 28 07/11/17 20:06 Nasal Cannula 3.0 32 07/11/17 20:06 95 Nasal Cannula 3.0 32 07/11/17 20:00 97.7 107 32 129/74 96 Nasal Cannula 2.0 07/11/17 19:15 100 07/11/17 16:00 97.5 101 18 134/76 97 Nasal Cannula 2.0 07/11/17 15:40 99 07/11/17 14:56 101 22 99 Nasal Cannula 2.0 28 07/11/17 14:47 98 20 99 Nasal Cannula 2.0 28 Height (Feet): 5 Height (Inches): 10.00 Weight (Pounds): 173 Respiratory/Chest: lungs clear Cardiovascular: normal rate, regular rhythm, no gallop/murmur Abdomen: soft, non tender Extremities: no edema Microbiology Date/Time Source Procedure Growth Status 07/11/17 18:00 Ankle Left Gram Stain - Final Resulted 07/11/17 18:00 Ankle Left Wound Culture - Preliminary Resulted Laboratory Tests Test 07/12/17 03:50 Random Vancomycin Level 26.5 ug/mL ARTIS SANTIAGO Jul 12, 2017 13:27"
--- NOTE | 2017-07-12 15:34 | General Progress Note ---
Assessment/Plan Problem List: (1) Catheter-related bloodstream infection ICD Codes: T80.211A - Bloodstream infection due to central venous catheter, initial encounter SNOMED: 813383815 (2) Renal failure ICD Codes: N19 - Unspecified kidney failure SNOMED: 15333628 (3) Septic shock ICD Codes: A41.9 - Sepsis, unspecified organism; R65.21 - Severe sepsis with septic shock SNOMED: 27196349 (4) Respiratory failure ICD Codes: J96.90 - Respiratory failure, unspecified, unspecified whether with hypoxia or hypercapnia SNOMED: 330632152 (5) Malnutrition of moderate degree ICD Codes: E44.0 - Moderate protein-calorie malnutrition SNOMED: 245603466 (6) End-stage renal disease ICD Codes: N18.6 - End stage renal disease SNOMED: 58595548 (7) Healthcare-associated pneumonia ICD Codes: J18.9 - Pneumonia, unspecified organism SNOMED: 189437364 Status: stable, progressing Assessment/Plan cont iv abx per id HD as tolerated resp rx feeds via ngt/ogt needs urgent GT to prevent life threatening aspiration pna dvt/stress ulcer prophyalxi monitor h/h transfuse as needed epo/iron guarded but improving dnr Subjective ROS Limited/Unobtainable: No Constitutional: Reports: malaise, weakness HEENT: Reports: no symptoms Cardiovascular: Reports: no symptoms Respiratory: Reports: cough, shortness of breath Gastrointestinal/Abdominal: Reports: difficulty swallowing Genitourinary: Reports: no symptoms Neurologic/Psychiatric: Reports: pre-existing deficit Endocrine: Reports: no symptoms Hematologic/Lymphatic: Reports: no symptoms Allergies: Coded Allergies: No Known Allergies (Unverified , 06/18/17) All Systems: reviewed and negative except above Subjective failed swallow eval. alert. follows some simple commands, tolerating feeds. minimal congestion. GI noted. Objective Last 24 Hour Vital Signs Date Time Temp Pulse Resp B/P (MAP) Pulse Ox O2 Delivery O2 Flow Rate FiO2 07/12/17 14:00 100 18 110/72 98 Nasal Cannula 3.0 07/12/17 13:55 97 18 116/69 95 Nasal Cannula 3.0 07/12/17 13:50 95 18 135/70 96 Nasal Cannula 3.0 07/12/17 13:45 99 18 140/91 98 Nasal Cannula 3.0 07/12/17 13:40 100 18 147/97 100 Nasal Cannula 3.0 07/12/17 13:35 96 18 142/90 99 Nasal Cannula 3.0 07/12/17 13:30 102 16 156/103 100 Nasal Cannula 3.0 07/12/17 13:25 102 16 147/99 99 Nasal Cannula 3.0 07/12/17 12:40 98 18 3.0 07/12/17 12:01 108 22 100 Nasal Cannula 2.0 28 07/12/17 12:00 98.1 94 18 114/69 96 Nasal Cannula 2.0 07/12/17 12:00 96 07/12/17 11:53 110 22 100 Nasal Cannula 2.0 28 07/12/17 11:44 106 20 98 Nasal Cannula 2.0 28 07/12/17 08:42 111 133/69 07/12/17 08:00 111 07/12/17 08:00 97.8 111 18 133/69 98 Nasal Cannula 2.0 07/12/17 07:36 Nasal Cannula 2.0 28 07/12/17 07:25 113 22 100 Nasal Cannula 2.0 28 07/12/17 07:15 110 22 98 Nasal Cannula 2.0 28 07/12/17 07:14 99 Nasal Cannula 2.0 28 07/12/17 04:12 89 22 99 Nasal Cannula 2.0 28 07/12/17 04:03 116 07/12/17 04:00 98.3 116 24 134/79 99 Nasal Cannula 2.0 07/12/17 03:55 79 20 96 Nasal Cannula 2.0 28 07/12/17 00:00 97.7 109 24 123/68 96 Nasal Cannula 2.0 07/11/17 23:36 108 07/11/17 22:55 82 22 99 Nasal Cannula 2.0 28 07/11/17 22:45 84 20 95 Nasal Cannula 2.0 28 07/11/17 20:31 107 129/74 07/11/17 20:16 75 22 99 Nasal Cannula 2.0 28 07/11/17 20:06 71 20 95 Nasal Cannula 2.0 28 07/11/17 20:06 Nasal Cannula 3.0 32 07/11/17 20:06 95 Nasal Cannula 3.0 32 07/11/17 20:00 97.7 107 32 129/74 96 Nasal Cannula 2.0 1/16/18 19:15 100 07/11/17 16:00 97.5 101 18 134/76 97 Nasal Cannula 2.0 07/11/17 15:40 99 Intake and Output 07/11/17 07/12/17 19:00 07:00 Intake Total 180 ml 200 ml Output Total 505 ml 350 ml Balance -325 ml -150 ml Tube Feeding 160 ml 160 ml Other 20 ml 40 ml Output Urine Total 5 ml 350 ml Hemodialysis UF 500 ml # Bowel Movements 1 Laboratory Tests 07/12/17 03:50: Random Vancomycin Level 26.5 Height (Feet): 5 Height (Inches): 10.00 Weight (Pounds): 173 Objective General Appearance: WD/WN, alert, confused Neck: supple Cardiovascular: regular rhythm Respiratory/Chest: chest wall non-tender, few rhonchi, normal breath sounds, no respiratory distress Abdomen: normal bowel sounds, non tender, soft, no organomegaly, no mass Edema: no edema noted Arm (L), no edema noted Arm (R), no edema noted Leg (L), no edema noted Leg (R), no edema noted Pedal (L), no edema noted Pedal (R), no edema noted Generalized Neurologic: more alert, aphasia KEENA BRANDT Jul 12, 2017 15:34
--- NOTE | 2017-07-12 15:49 | Podiatric Progress Note ---
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 MRI more sensitive for osteo. MRI without contrast ordered 6) Will follow - prognosis poor 2/2 comorbidities Subjective Allergies: Coded Allergies: No Known Allergies (Unverified , 06/18/17) Subjective Patient is nonverbal Objective Exam Last 24 Hour Vital Signs Date Time Temp Pulse Resp B/P (MAP) Pulse Ox O2 Delivery O2 Flow Rate FiO2 07/12/17 14:00 100 18 110/72 98 Nasal Cannula 3.0 07/12/17 13:55 97 18 116/69 95 Nasal Cannula 3.0 07/12/17 13:50 95 18 135/70 96 Nasal Cannula 3.0 07/12/17 13:45 99 18 140/91 98 Nasal Cannula 3.0 07/12/17 13:40 100 18 147/97 100 Nasal Cannula 3.0 07/12/17 13:35 96 18 142/90 99 Nasal Cannula 3.0 07/12/17 13:30 102 16 156/103 100 Nasal Cannula 3.0 07/12/17 13:25 102 16 147/99 99 Nasal Cannula 3.0 07/12/17 12:40 98 18 3.0 07/12/17 12:01 108 22 100 Nasal Cannula 2.0 28 07/12/17 12:00 98.1 94 18 114/69 96 Nasal Cannula 2.0 07/12/17 12:00 96 07/12/17 11:53 110 22 100 Nasal Cannula 2.0 28 07/12/17 11:44 106 20 98 Nasal Cannula 2.0 28 07/12/17 08:42 111 133/69 07/12/17 08:00 111 07/12/17 08:00 97.8 111 18 133/69 98 Nasal Cannula 2.0 07/12/17 07:36 Nasal Cannula 2.0 28 07/12/17 07:25 113 22 100 Nasal Cannula 2.0 28 07/12/17 07:15 110 22 98 Nasal Cannula 2.0 28 07/12/17 07:14 99 Nasal Cannula 2.0 28 07/12/17 04:12 89 22 99 Nasal Cannula 2.0 28 07/12/17 04:03 116 07/12/17 04:00 98.3 116 24 134/79 99 Nasal Cannula 2.0 07/12/17 03:55 79 20 96 Nasal Cannula 2.0 28 07/12/17 00:00 97.7 109 24 123/68 96 Nasal Cannula 2.0 07/11/17 23:36 108 07/11/17 22:55 82 22 99 Nasal Cannula 2.0 28 07/11/17 22:45 84 20 95 Nasal Cannula 2.0 28 07/11/17 20:31 107 129/74 07/11/17 20:16 75 22 99 Nasal Cannula 2.0 28 07/11/17 20:06 71 20 95 Nasal Cannula 2.0 28 07/11/17 20:06 Nasal Cannula 3.0 32 07/11/17 20:06 95 Nasal Cannula 3.0 32 07/11/17 20:00 97.7 107 32 129/74 96 Nasal Cannula 2.0 07/11/17 19:15 100 07/11/17 16:00 97.5 101 18 134/76 97 Nasal Cannula 2.0 Laboratory Tests Test 07/12/17 03:50 Random Vancomycin Level 26.5 ug/mL Microbiology Date/Time Source Procedure Growth Status 06/27/17 14:00 Blood Blood Culture - Final NO GROWTH AFTER 5 DAYS Complete 06/19/17 13:00 Sputum Gram Stain - Final Complete 06/19/17 13:00 Sputum Culture - Final Enterobacter Aerogenes Usual Upper Respiratory Angela Complete 07/11/17 18:00 Ankle Left Gram Stain - Final Resulted 07/11/17 18:00 Ankle Left Wound Culture - Preliminary Resulted Vascular Vascular Narrative wound exam unchanged Dermatological Wound Assessment : Exudate Amount: None Barrett Long DPAlyce Jul 12, 2017 15:49
--- NOTE | 2017-07-12 16:48 | Nephrology Progress Note ---
Assessment/Plan Problem List: (1) Healthcare-associated pneumonia (2) Malnutrition of moderate degree (3) End-stage renal disease (4) Respiratory failure (5) Septic shock Plan , meds reviewed for eskd,hypotension, mrsa sepsis, he isunable to sign as critically ill, hd via new cath 06/27 , flow variable observe hd 06/29,remains on pressors--off 1/5 am, hd 07/11 poor cath flow needs new cath-done , hd 07/13, eval for osteo, mri pend Subjective ROS Limited/Unobtainable: Yes Objective Objective Last 24 Hour Vital Signs Date Time Temp Pulse Resp B/P (MAP) Pulse Ox O2 Delivery O2 Flow Rate FiO2 07/12/17 16:00 97.6 96 18 126/71 95 Nasal Cannula 3.0 07/12/17 14:00 100 18 110/72 98 Nasal Cannula 3.0 07/12/17 13:55 97 18 116/69 95 Nasal Cannula 3.0 07/12/17 13:50 95 18 135/70 96 Nasal Cannula 3.0 07/12/17 13:45 99 18 140/91 98 Nasal Cannula 3.0 07/12/17 13:40 100 18 147/97 100 Nasal Cannula 3.0 07/12/17 13:35 96 18 142/90 99 Nasal Cannula 3.0 07/12/17 13:30 102 16 156/103 100 Nasal Cannula 3.0 07/12/17 13:25 102 16 147/99 99 Nasal Cannula 3.0 07/12/17 12:40 98 18 3.0 07/12/17 12:01 108 22 100 Nasal Cannula 2.0 28 07/12/17 12:00 98.1 94 18 114/69 96 Nasal Cannula 2.0 07/12/17 12:00 96 07/12/17 11:53 110 22 100 Nasal Cannula 2.0 28 07/12/17 11:44 106 20 98 Nasal Cannula 2.0 28 07/12/17 08:42 111 133/69 07/12/17 08:00 111 07/12/17 08:00 97.8 111 18 133/69 98 Nasal Cannula 2.0 07/12/17 07:36 Nasal Cannula 2.0 28 07/12/17 07:25 113 22 100 Nasal Cannula 2.0 28 1/17/18 07:15 110 22 98 Nasal Cannula 2.0 28 07/12/17 07:14 99 Nasal Cannula 2.0 28 07/12/17 04:12 89 22 99 Nasal Cannula 2.0 28 07/12/17 04:03 116 07/12/17 04:00 98.3 116 24 134/79 99 Nasal Cannula 2.0 07/12/17 03:55 79 20 96 Nasal Cannula 2.0 28 07/12/17 00:00 97.7 109 24 123/68 96 Nasal Cannula 2.0 07/11/17 23:36 108 07/11/17 22:55 82 22 99 Nasal Cannula 2.0 28 07/11/17 22:45 84 20 95 Nasal Cannula 2.0 28 07/11/17 20:31 107 129/74 07/11/17 20:16 75 22 99 Nasal Cannula 2.0 28 07/11/17 20:06 71 20 95 Nasal Cannula 2.0 28 07/11/17 20:06 Nasal Cannula 3.0 32 07/11/17 20:06 95 Nasal Cannula 3.0 32 07/11/17 20:00 97.7 107 32 129/74 96 Nasal Cannula 2.0 07/11/17 19:15 100 Intake and Output 07/11/17 07/12/17 19:00 07:00 Intake Total 180 ml 200 ml Output Total 505 ml 350 ml Balance -325 ml -150 ml Tube Feeding 160 ml 160 ml Other 20 ml 40 ml Output Urine Total 5 ml 350 ml Hemodialysis UF 500 ml # Bowel Movements 1 Laboratory Tests 07/12/17 03:50: Random Vancomycin Level 26.5 Height (Feet): 5 Height (Inches): 10.00 Weight (Pounds): 173 General Appearance: lethargic EENT: normal ENT inspection Neck: normal alignment Cardiovascular: regular rhythm Respiratory/Chest: crackles/rales Abdomen: non tender Extremities: trace edema Neurologic: disoriented LEONORA HUI Jul 12, 2017 16:48
--- NOTE | 2017-07-12 18:33 | Pulmonology Progress Note ---
Assessment/Plan Assessment/Plan 1. Respiratory failure. 2. Sepsis with shock. 3. Dialysis catheter sepsis 4. Stroke with dementia and right hemiparesis. 5. Diabetes. very weak evaluating for osteo foot on HD nebs and suction abx per id DNR/DNI HHN O2 prognosis guarded favor comfort care Subjective ROS Limited/Unobtainable: Yes Allergies: Coded Allergies: No Known Allergies (Unverified , 06/18/17) Objective Last 24 Hour Vital Signs Date Time Temp Pulse Resp B/P (MAP) Pulse Ox O2 Delivery O2 Flow Rate FiO2 07/12/17 16:00 97.6 96 18 126/71 95 Nasal Cannula 3.0 07/12/17 16:00 97 07/12/17 14:00 100 18 110/72 98 Nasal Cannula 3.0 07/12/17 13:55 97 18 116/69 95 Nasal Cannula 3.0 07/12/17 13:50 95 18 135/70 96 Nasal Cannula 3.0 07/12/17 13:45 99 18 140/91 98 Nasal Cannula 3.0 07/12/17 13:40 100 18 147/97 100 Nasal Cannula 3.0 07/12/17 13:35 96 18 142/90 99 Nasal Cannula 3.0 07/12/17 13:30 102 16 156/103 100 Nasal Cannula 3.0 07/12/17 13:25 102 16 147/99 99 Nasal Cannula 3.0 07/12/17 12:40 98 18 3.0 07/12/17 12:01 108 22 100 Nasal Cannula 2.0 28 07/12/17 12:00 98.1 94 18 114/69 96 Nasal Cannula 2.0 07/12/17 12:00 96 07/12/17 11:53 110 22 100 Nasal Cannula 2.0 28 07/12/17 11:44 106 20 98 Nasal Cannula 2.0 28 07/12/17 08:42 111 133/69 07/12/17 08:00 111 07/12/17 08:00 97.8 111 18 133/69 98 Nasal Cannula 2.0 07/12/17 07:36 Nasal Cannula 2.0 28 07/12/17 07:25 113 22 100 Nasal Cannula 2.0 28 07/12/17 07:15 110 22 98 Nasal Cannula 2.0 28 07/12/17 07:14 99 Nasal Cannula 2.0 28 07/12/17 04:12 89 22 99 Nasal Cannula 2.0 28 07/12/17 04:03 116 07/12/17 04:00 98.3 116 24 134/79 99 Nasal Cannula 2.0 07/12/17 03:55 79 20 96 Nasal Cannula 2.0 28 07/12/17 00:00 97.7 109 24 123/68 96 Nasal Cannula 2.0 07/11/17 23:36 108 07/11/17 22:55 82 22 99 Nasal Cannula 2.0 28 07/11/17 22:45 84 20 95 Nasal Cannula 2.0 28 07/11/17 20:31 107 129/74 07/11/17 20:16 75 22 99 Nasal Cannula 2.0 28 07/11/17 20:06 71 20 95 Nasal Cannula 2.0 28 07/11/17 20:06 Nasal Cannula 3.0 32 07/11/17 20:06 95 Nasal Cannula 3.0 32 07/11/17 20:00 97.7 107 32 129/74 96 Nasal Cannula 2.0 07/11/17 19:15 100 Intake and Output 07/11/17 07/12/17 19:00 07:00 Intake Total 180 ml 200 ml Output Total 505 ml 350 ml Balance -325 ml -150 ml Tube Feeding 160 ml 160 ml Other 20 ml 40 ml Output Urine Total 5 ml 350 ml Hemodialysis UF 500 ml # Bowel Movements 1 General Appearance: no acute distress Respiratory/Chest: rhonchi Cardiovascular: normal rate Microbiology Date/Time Source Procedure Growth Status 07/11/17 18:00 Ankle Left Gram Stain - Final Resulted 07/11/17 18:00 Ankle Left Wound Culture - Preliminary Resulted Laboratory Tests 07/12/17 03:50: Random Vancomycin Level 26.5 Current Medications Medications (Trade) Dose Ordered Sig/Jaime Route PRN Reason Start Time Stop Time Status Last Admin Dose Admin Acetaminophen (Tylenol) 650 mg Q4H PRN RECTAL Prn Headache/Temp > 101 07/08/17 17:00 07/18/17 20:59 Aspirin (ASA) 81 mg DAILY NG 07/09/17 09:00 07/19/17 18:59 07/12/17 08:41 Chlorhexidine Gluconate (Kati-Hex 2%) 1 applic Q24H TOPIC 07/08/17 20:00 07/19/17 19:59 07/11/17 20:31 Dextrose (Dextrose 50%) STAT PRN IV Hypoglycemia 07/09/17 13:00 07/19/17 12:59 Epoetin Russ (Procrit (for ESRD on dialysis)) 5,000 units MON-WED-MON SUBQ 07/10/17 21:00 07/21/17 20:59 07/10/17 20:31 Heparin Sodium (Porcine) (Heparin 5000 units/ml) 5,000 units EVERY 12 HOURS SUBQ 07/08/17 21:00 07/18/17 20:59 07/11/17 20:33 Heparin Sodium (Porcine) (Heparin Sod 1000 units/ml 10ml) 500 unit ONCE PRN IV FOR HD USE 07/13/17 17:00 07/14/17 23:59 Insulin Aspart (NovoLOG) EVERY 6 HOURS SUBQ 07/08/17 18:00 07/19/17 17:59 07/11/17 23:41 Lansoprazole (Prevacid) 30 mg DAILY GT 07/09/17 09:00 07/19/17 08:59 07/12/17 08:41 Lidocaine/ Epinephrine (Xylocaine 2%/ Epi MPF) 60 ml ONCE INJ 07/12/17 13:00 07/13/17 23:59 Metoprolol Tartrate (Lopressor) 50 mg Q12HR ORAL 07/12/17 09:00 08/11/17 08:59 07/12/17 08:42 Sodium Chloride 550 ml @ 500 mls/hr Q1H6M PRN IV sbp<90 during hd 07/08/17 16:00 07/27/17 11:08 Sodium Chloride 1,000 ml @ 500 mls/hr Q2H PRN IVLG sbp<90 during hd 07/12/17 18:00 07/14/17 17:59 Vancomycin HCl (Vanco rx to dose) 1 ea DAILY PRN MISC Per rx protocol 07/09/17 14:15 08/08/17 14:14 PEG MARTINEZ Jul 12, 2017 18:33
[2017-07-12] MEDS: Dyna-Hex 2% Top Sol 2oz TOPIC SCH (20:23)
[2017-07-12] MEDS: Epogen (for ESRD on dialysis) SUBQ SCH (21:02)
--- NOTE | 2017-07-12 21:32 | Progress Note ---
DATE: 07/12/2017 CARDIOLOGY PROGRESS NOTE SUBJECTIVE: The patient remains in the intensive care unit. Concern over osteomyelitis of his foot is now being addressed. The patient is planned for G-tube placement. OBJECTIVE: VITAL SIGNS: Blood pressure 110/72, pulse 100, respirations 18, and afebrile. LUNGS: Coarse breath sounds. Scattered rhonchi. HEART: Regular rhythm and rate. Normal S1, S2 with a fourth heart sound. ABDOMEN: Soft. Trace dependent edema. Dialysis catheter site without bleeding. LABORATORY DATA: Laboratories pending. IMPRESSION: 1. Acute myocardial ischemia, recovered. 2. Status post acute respiratory failure. 3. Healthcare-acquired pneumonia, improving. 4. Dysphagia. 5. Foot ulcer and possible osteomyelitis. 6. Status post removal of infected dialysis catheter with line sepsis. 7. Acute on chronic diastolic congestive heart failure. 8. Peripheral artery disease. 9. End-stage renal disease. PLAN: 1. DNR, DNI. 2. Await G-tube. 3. Foot care. 4. Antimicrobials per Infectious Disease virtualization consultant. 5. Respiratory hygiene. 6. Maintain current cardiovascular regimen including beta-lory and anti-platelet therapy and statin. 7. Discharge planning following placement of G-tube. Gurdeep Harvey M.D. : DAT JOB#: [id number] CC:
[2017-07-13] VITALS: BP 130/88
[2017-07-13] MEDS: NovoLOG Insulin Flexpen SUBQ SCH ×5 (00:51→23:02)
[2017-07-13 04:00] VITALS: BP 136/84
--- NOTE | 2017-07-13 06:55 | Anethesia Preoperative Eval ---
Anesthesia Pre-op PMH/ROS General Date of Evaluation: Jul 13, 2017 Time of Evaluation: 06:46 Anesthesiologist: kunal ASA Score: ASA 4 Mallampati Score Class I : Soft palate, uvula, fauces, pillars visible Class II: Soft palate, uvula, fauces visible Class III: Soft palate, base of uvula visible Class IV: Only hard plate visible Surgeon: les Diagnosis: malnutrition Surgical Procedure: egd/peg Family History: no anesthesia problems Allergies: Coded Allergies: No Known Allergies (Unverified , 06/18/17) Medications: see eMAR Past Medical History Cardiovascular: Reports: other - nstemi Pulmonary: Reports: other - respiratory failure Gastrointestinal/Genitourinary: Reports: ESRD - on HD Endocrine: Reports: DM Hematology/Immune: Reports: other - septic shock Anesthesia Pre-op Phys. Exam Physician Exam Last Vital Signs Date Time Temp Pulse Resp B/P (MAP) Pulse Ox O2 Delivery O2 Flow Rate FiO2 07/13/17 04:00 103 07/13/17 04:00 97.8 20 136/84 98 Nasal Cannula 3.0 07/12/17 12:01 28 Anesthesia Pre-op A/P Labs Labs Test 07/10/17 09:30 07/12/17 03:50 Prothrombin Time 12.7 SEC (9.30-11.50) Prothromb Time International Ratio 1.2 (0.9-1.1) Activated Partial Thromboplast Time 38 SEC (23-33) Random Vancomycin Level 26.5 ug/mL Risk Assessment & Plan Assessment: asa4 Plan: BRUCE Swanson Jul 13, 2017 06:54
[2017-07-13 08:00] VITALS: BP 135/79
[2017-07-13] MEDS: Aspirin Baby 81mg NG SCH (08:37)
--- NOTE | 2017-07-13 08:50 | General Progress Note ---
Assessment/Plan Problem List: (1) Catheter-related bloodstream infection ICD Codes: T80.211A - Bloodstream infection due to central venous catheter, initial encounter SNOMED: 887356542 (2) Renal failure ICD Codes: N19 - Unspecified kidney failure SNOMED: 85871462 (3) Septic shock ICD Codes: A41.9 - Sepsis, unspecified organism; R65.21 - Severe sepsis with septic shock SNOMED: 34762125 (4) Respiratory failure ICD Codes: J96.90 - Respiratory failure, unspecified, unspecified whether with hypoxia or hypercapnia SNOMED: 711908537 (5) Malnutrition of moderate degree ICD Codes: E44.0 - Moderate protein-calorie malnutrition SNOMED: 711545722 (6) End-stage renal disease ICD Codes: N18.6 - End stage renal disease SNOMED: 71186377 (7) Healthcare-associated pneumonia ICD Codes: J18.9 - Pneumonia, unspecified organism SNOMED: 119909153 Status: stable, progressing Assessment/Plan cont iv abx per id HD as tolerated resp rx feeds via ngt/ogt mri foot needs urgent GT to prevent life threatening aspiration pna- scheduled for tomorrow dvt/stress ulcer prophyalxi monitor h/h transfuse as needed epo/iron guarded but improving dnr Subjective ROS Limited/Unobtainable: No Constitutional: Reports: malaise, weakness HEENT: Reports: no symptoms Cardiovascular: Reports: no symptoms Respiratory: Reports: cough Gastrointestinal/Abdominal: Reports: difficulty swallowing Genitourinary: Reports: no symptoms Neurologic/Psychiatric: Reports: pre-existing deficit Endocrine: Reports: no symptoms Hematologic/Lymphatic: Reports: no symptoms Allergies: Coded Allergies: No Known Allergies (Unverified , 06/18/17) All Systems: reviewed and negative except above Subjective failed swallow eval. alert. follows some simple commands, tolerating feeds. minimal congestion. GI noted. s/p perm cath placement. Objective Last 24 Hour Vital Signs Date Time Temp Pulse Resp B/P (MAP) Pulse Ox O2 Delivery O2 Flow Rate FiO2 07/13/17 04:00 103 07/13/17 04:00 97.8 95 20 136/84 98 Nasal Cannula 3.0 07/13/17 00:00 96.6 98 22 130/88 98 Nasal Cannula 3.0 07/13/17 00:00 97 07/12/17 20:24 99 127/81 07/12/17 20:00 96.6 99 20 127/81 95 Nasal Cannula 3.0 07/12/17 20:00 97 07/12/17 16:00 97.6 96 18 126/71 95 Nasal Cannula 3.0 07/12/17 16:00 97 07/12/17 14:00 100 18 110/72 98 Nasal Cannula 3.0 07/12/17 13:55 97 18 116/69 95 Nasal Cannula 3.0 07/12/17 13:50 95 18 135/70 96 Nasal Cannula 3.0 07/12/17 13:45 99 18 140/91 98 Nasal Cannula 3.0 07/12/17 13:40 100 18 147/97 100 Nasal Cannula 3.0 07/12/17 13:35 96 18 142/90 99 Nasal Cannula 3.0 07/12/17 13:30 102 16 156/103 100 Nasal Cannula 3.0 07/12/17 13:25 102 16 147/99 99 Nasal Cannula 3.0 07/12/17 12:40 98 18 3.0 07/12/17 12:01 108 22 100 Nasal Cannula 2.0 28 07/12/17 12:00 98.1 94 18 114/69 96 Nasal Cannula 2.0 07/12/17 12:00 96 07/12/17 11:53 110 22 100 Nasal Cannula 2.0 28 07/12/17 11:44 106 20 98 Nasal Cannula 2.0 28 Intake and Output 07/12/17 07/13/17 19:00 07:00 Intake Total 250 ml 530 ml Output Total 50 ml Balance 200 ml 530 ml Intake Free Water 50 ml 50 ml Tube Feeding 200 ml 480 ml Output Urine Total 50 ml # Bowel Movements 1 Height (Feet): 5 Height (Inches): 10.00 Weight (Pounds): 172 Objective General Appearance: WD/WN, alert, confused Neck: supple Cardiovascular: regular rhythm Respiratory/Chest: chest wall non-tender, few rhonchi, normal breath sounds, no respiratory distress Abdomen: normal bowel sounds, non tender, soft, no organomegaly, no mass Edema: no edema noted Arm (L), no edema noted Arm (R), no edema noted Leg (L), no edema noted Leg (R), no edema noted Pedal (L), no edema noted Pedal (R), no edema noted Generalized Neurologic: more alert, aphasia KEENA BRANDT Jul 13, 2017 08:50
[2017-07-13] MEDS: Heparin 5000 units/ml inj SUBQ SCH ×2 (09:00→20:32)
[2017-07-13] MEDS: Metoprolol 25mg tab ORAL SCH ×2 (09:00→20:31)
[2017-07-13 09:13] LABS: BASOPHILS % (AUTO) 0.7 % (0.0-2.0); EOSINOPHILS % (AUTO) 2.2 % (0.0-3.0); HEMATOCRIT 28.1 % (42.0-52.0); HEMOGLOBIN 8.8 G/DL (14.2-18.0); LYMPHOCYTES % (AUTO) 22.3 % (20.0-45.0); MEAN CORPUSCULAR VOLUME 92 FL (80-99); MONOCYTES % (AUTO) 16.3 % (1.0-10.0); NEUTROPHILS % (AUTO) 58.5 % (45.0-75.0); PLATELET COUNT 514 K/UL (150-450); RED BLOOD COUNT 3.06 M/UL (4.70-6.10); RED CELL DISTRIBUTION WIDTH 19.7 % (11.6-14.8)
[2017-07-13 09:26] LABS: ANION GAP 10 mmol/L (5-15); BLOOD UREA NITROGEN 48 mg/dL (7-18); CALCIUM 7.9 MG/DL (8.5-10.1); CARBON DIOXIDE 24 MMOL/L (21-32); CHLORIDE 105 MMOL/L (98-107); CREATININE 4.8 MG/DL (0.55-1.30); POTASSIUM 3.9 MMOL/L (3.5-5.1); SODIUM 139 MMOL/L (136-145)
[2017-07-13 09:31] LABS: INR 1.2 (0.9-1.1)
--- NOTE | 2017-07-13 10:03 | Diagnostic Imaging Report ---
Indication: Dyspnea Comparison: 07/04/2017 A single view chest radiograph was obtained. Findings: Left permacath catheter noted. Bilateral pleural effusions demonstrated. Vascular congestion and cardiomegaly demonstrated. NG tube is in good position. IMPRESSION: Mild interstitial edema. Bilateral pleural effusions.
--- NOTE | 2017-07-13 10:29 | General Progress Note ---
Assessment/Plan Assessment/Plan Assessment - Dysphagia - OBS - abnormal LFT --> Hepatitis C (+) - renal failure - Anemia - CVA Recommendations - check abd U/S after EGD - PEG tomorrow am - need to place on urgent basis to avoid aspiration and malnutrition (No DPOA -will place on emergency basis) Subjective Allergies: Coded Allergies: No Known Allergies (Unverified , 06/18/17) Subjective above noted no events overnight non communicative GT scheduled for Monday at 0700 Hepatitis serology (+) for Hepaitis C Objective Last 24 Hour Vital Signs Date Time Temp Pulse Resp B/P (MAP) Pulse Ox O2 Delivery O2 Flow Rate FiO2 07/13/17 08:00 98.7 111 19 135/79 95 Nasal Cannula 3.0 07/13/17 04:00 103 07/13/17 04:00 97.8 95 20 136/84 98 Nasal Cannula 3.0 07/13/17 00:00 96.6 98 22 130/88 98 Nasal Cannula 3.0 07/13/17 00:00 97 07/12/17 20:24 99 127/81 07/12/17 20:00 96.6 99 20 127/81 95 Nasal Cannula 3.0 07/12/17 20:00 97 07/12/17 16:00 97.6 96 18 126/71 95 Nasal Cannula 3.0 07/12/17 16:00 97 07/12/17 14:00 100 18 110/72 98 Nasal Cannula 3.0 07/12/17 13:55 97 18 116/69 95 Nasal Cannula 3.0 07/12/17 13:50 95 18 135/70 96 Nasal Cannula 3.0 07/12/17 13:45 99 18 140/91 98 Nasal Cannula 3.0 07/12/17 13:40 100 18 147/97 100 Nasal Cannula 3.0 07/12/17 13:35 96 18 142/90 99 Nasal Cannula 3.0 07/12/17 13:30 102 16 156/103 100 Nasal Cannula 3.0 07/12/17 13:25 102 16 147/99 99 Nasal Cannula 3.0 07/12/17 12:40 98 18 3.0 07/12/17 12:01 108 22 100 Nasal Cannula 2.0 28 07/12/17 12:00 98.1 94 18 114/69 96 Nasal Cannula 2.0 07/12/17 12:00 96 07/12/17 11:53 110 22 100 Nasal Cannula 2.0 28 07/12/17 11:44 106 20 98 Nasal Cannula 2.0 28 Intake and Output 07/12/17 07/13/17 19:00 07:00 Intake Total 250 ml 530 ml Output Total 50 ml Balance 200 ml 530 ml Intake Free Water 50 ml 50 ml Tube Feeding 200 ml 480 ml Output Urine Total 50 ml # Bowel Movements 1 Laboratory Tests 07/13/17 08:30: White Blood Count 7.0, Red Blood Count 3.06L, Hemoglobin 8.8L, Hematocrit 28.1L , Mean Corpuscular Volume 92, Mean Corpuscular Hemoglobin 28.7, Mean Corpuscular Hemoglobin Concent 31.3L, Red Cell Distribution Width 19.7H, Platelet Count 514H, Mean Platelet Volume 5.8L, Neutrophils (%) (Auto) 58.5, Lymphocytes (%) (Auto) 22.3, Monocytes (%) (Auto) 16.3H, Eosinophils (%) (Auto) 2.2, Basophils (%) (Auto) 0.7, Prothrombin Time 12.2H, Prothromb Time International Ratio 1.2H, Activated Partial Thromboplast Time 37H, Sodium Level 139, Potassium Level 3.9, Chloride Level 105, Carbon Dioxide Level 24, Anion Gap 10, Blood Urea Nitrogen 48H, Creatinine 4.8H, Estimat Glomerular Filtration Rate , Glucose Level 130H, Calcium Level 7.9L Height (Feet): 5 Height (Inches): 10.00 Weight (Pounds): 172 Objective Debilitated AA man NCAT, (+) NGT supple CTA RRR abd soft ND NT no edema OBS MONIKA SMITH Jul 13, 2017 10:29
[2017-07-13] MEDS: Albuterol ud Inhalation HHN SCH ×4 (11:00→22:46)
--- NOTE | 2017-07-13 11:21 | Infectious Diseases Prog Note ---
Assessment/Plan Assessment/Plan A 1. MRSA sepsis s/p catheter removal 2. septic shock resolved 3. respiratory failure 4. renal failure, ESRD 5. staph aureus , Enterobacter pneumonia P 1. continue vancomycin iv 2. will f/u MRI of left ankle Subjective ROS Limited/Unobtainable: Yes Allergies: Coded Allergies: No Known Allergies (Unverified , 06/18/17) Objective Vital Signs Last 24 Hour Vital Signs Date Time Temp Pulse Resp B/P (MAP) Pulse Ox O2 Delivery O2 Flow Rate FiO2 07/13/17 08:00 98.7 111 19 135/79 95 Nasal Cannula 3.0 07/13/17 04:00 103 07/13/17 04:00 97.8 95 20 136/84 98 Nasal Cannula 3.0 07/13/17 00:00 96.6 98 22 130/88 98 Nasal Cannula 3.0 07/13/17 00:00 97 07/12/17 20:24 99 127/81 07/12/17 20:00 96.6 99 20 127/81 95 Nasal Cannula 3.0 07/12/17 20:00 97 07/12/17 16:00 97.6 96 18 126/71 95 Nasal Cannula 3.0 07/12/17 16:00 97 07/12/17 14:00 100 18 110/72 98 Nasal Cannula 3.0 07/12/17 13:55 97 18 116/69 95 Nasal Cannula 3.0 07/12/17 13:50 95 18 135/70 96 Nasal Cannula 3.0 07/12/17 13:45 99 18 140/91 98 Nasal Cannula 3.0 07/12/17 13:40 100 18 147/97 100 Nasal Cannula 3.0 07/12/17 13:35 96 18 142/90 99 Nasal Cannula 3.0 07/12/17 13:30 102 16 156/103 100 Nasal Cannula 3.0 07/12/17 13:25 102 16 147/99 99 Nasal Cannula 3.0 07/12/17 12:40 98 18 3.0 07/12/17 12:01 108 22 100 Nasal Cannula 2.0 28 07/12/17 12:00 98.1 94 18 114/69 96 Nasal Cannula 2.0 07/12/17 12:00 96 07/12/17 11:53 110 22 100 Nasal Cannula 2.0 28 07/12/17 11:44 106 20 98 Nasal Cannula 2.0 28 Height (Feet): 5 Height (Inches): 10.00 Weight (Pounds): 172 HEENT: thrush Respiratory/Chest: rhonchi - bilaterally Cardiovascular: tachycardia, other - left Permacath Abdomen: soft, non tender, other - NG tube feeding Extremities: no edema Skin: ulcers, other - left lateral ankle Neurologic/Psychiatric: alert, aphasia Musculoskeletal: atrophy Microbiology Date/Time Source Procedure Growth Status 07/11/17 18:00 Ankle Left Gram Stain - Final Resulted 07/11/17 18:00 Wound Culture - Preliminary Gram Positive Cocci Resulted Laboratory Tests Test 07/13/17 08:30 White Blood Count 7.0 K/UL (4.8-10.8) Red Blood Count 3.06 M/UL (4.70-6.10) L Hemoglobin 8.8 G/DL (14.2-18.0) L Hematocrit 28.1 % (42.0-52.0) L Mean Corpuscular Volume 92 FL (80-99) Mean Corpuscular Hemoglobin 28.7 PG (27.0-31.0) Mean Corpuscular Hemoglobin Concent 31.3 G/DL (32.0-36.0) L Red Cell Distribution Width 19.7 % (11.6-14.8) H Platelet Count 514 K/UL (150-450) H Mean Platelet Volume 5.8 FL (6.5-10.1) L Neutrophils (%) (Auto) 58.5 % (45.0-75.0) Lymphocytes (%) (Auto) 22.3 % (20.0-45.0) Monocytes (%) (Auto) 16.3 % (1.0-10.0) H Eosinophils (%) (Auto) 2.2 % (0.0-3.0) Basophils (%) (Auto) 0.7 % (0.0-2.0) Prothrombin Time 12.2 SEC (9.30-11.50) H Prothromb Time International Ratio 1.2 (0.9-1.1) H Activated Partial Thromboplast Time 37 SEC (23-33) H Sodium Level 139 MMOL/L (136-145) Potassium Level 3.9 MMOL/L (3.5-5.1) Chloride Level 105 MMOL/L (98-107) Carbon Dioxide Level 24 MMOL/L (21-32) Anion Gap 10 mmol/L (5-15) Blood Urea Nitrogen 48 mg/dL (7-18) H Creatinine 4.8 MG/DL (0.55-1.30) H Estimat Glomerular Filtration Rate mL/min (>60) Glucose Level 130 MG/DL (74-106) H Calcium Level 7.9 MG/DL (8.5-10.1) L Current Medications Medications (Trade) Dose Ordered Sig/Jaime Route PRN Reason Start Time Stop Time Status Last Admin Dose Admin Acetaminophen (Tylenol) 650 mg Q4H PRN RECTAL Prn Headache/Temp > 101 07/08/17 17:00 07/18/17 20:59 Albuterol Sulfate (Proventil) 2.5 mg Q4HRT HHN 07/13/17 11:00 07/18/17 10:59 Aspirin (ASA) 81 mg DAILY NG 07/09/17 09:00 07/19/17 18:59 07/13/17 08:37 Chlorhexidine Gluconate (Kati-Hex 2%) 1 applic Q24H TOPIC 07/08/17 20:00 07/19/17 19:59 07/12/17 20:23 Dextrose (Dextrose 50%) STAT PRN IV Hypoglycemia 07/09/17 13:00 07/19/17 12:59 Epoetin Russ (Procrit (for ESRD on dialysis)) 5,000 units MON-WED-FRI SUBQ 07/10/17 21:00 07/21/17 20:59 07/12/17 21:02 Heparin Sodium (Porcine) (Heparin 5000 units/ml) 5,000 units EVERY 12 HOURS SUBQ 07/08/17 21:00 07/18/17 20:59 07/12/17 20:26 Heparin Sodium (Porcine) (Heparin Sod 1000 units/ml 10ml) 500 unit ONCE PRN IV FOR HD USE 07/13/17 17:00 07/14/17 23:59 Insulin Aspart (NovoLOG) EVERY 6 HOURS SUBQ 07/08/17 18:00 07/19/17 17:59 07/13/17 05:09 Lansoprazole (Prevacid) 30 mg DAILY GT 07/09/17 09:00 07/19/17 08:59 07/13/17 08:37 Metoprolol Tartrate (Lopressor) 50 mg Q12HR ORAL 07/12/17 09:00 08/11/17 08:59 07/12/17 20:24 Sodium Chloride 550 ml @ 500 mls/hr Q1H6M PRN IV sbp<90 during hd 07/08/17 16:00 07/27/17 11:08 Sodium Chloride 1,000 ml @ 500 mls/hr Q2H PRN IVLG sbp<90 during hd 07/12/17 18:00 07/14/17 17:59 Vancomycin HCl (Vanco rx to dose) 1 ea DAILY PRN MISC Per rx protocol 07/09/17 14:15 08/08/17 14:14 ZAIRA ROBLES Jul 13, 2017 11:21
--- NOTE | 2017-07-13 11:52 | Diagnostic Imaging Report ---
Indication: Left lateral ankle ulcer and cellulitis. Technique: Left ankle/hindfoot imaging utilizing multiplanar T1 fast spin-echo, proton and T2 fast spin-echo with fat saturation, and STIR. Comparison: None Findings: There is ulceration involving the lateral part of the ankle seen is area of T2 hyperintensity. The adjacent soft tissues are edematous and show T2 hyperintense edema. The adjacent lateral malleolus shows ill-defined abnormal T2 hyperintense signal and very mild subtle T1 hypointensity. There is also the suggestion of some altered morphology along the lateral inferior part of the lateral malleolus which appears blunted. The remainder of the osseous structures visualizing the ankle and hindfoot appear normal in signal. There is subcutaneous edema in the dorsum of the foot which is nonspecific. There is some enlargement of the Achilles tendon noted.. Underlying Achilles tendon adenopathy is suspected. A small amount of fluid is seen in the retrocalcaneal bursa. IMPRESSION: Suspected mild acute osteomyelitis involving the area of the lateral malleolus as described above. Cellulitis of the foot as described above. Incidental tendinopathy versus partial tear of the Achilles tendon. Retrocalcaneal bursitis.
[2017-07-13 12:00] VITALS: BP 143/88
--- NOTE | 2017-07-13 15:35 | Pulmonology Progress Note ---
Assessment/Plan Assessment/Plan 1. Respiratory failure. 2. Sepsis with shock. 3. Dialysis catheter sepsis 4. Stroke with dementia and right hemiparesis. 5. Diabetes. Agree w PEG, planned tomorrow MRI w osteo foot on HD nebs and suction abx per id DNR/DNI HHN O2 prognosis guarded Subjective ROS Limited/Unobtainable: Yes Allergies: Coded Allergies: No Known Allergies (Unverified , 06/18/17) Objective Last 24 Hour Vital Signs Date Time Temp Pulse Resp B/P (MAP) Pulse Ox O2 Delivery O2 Flow Rate FiO2 07/13/17 15:10 110 32 98 Nasal Cannula 3.0 32 07/13/17 14:56 99 Nasal Cannula 3.0 32 07/13/17 14:56 104 34 99 Nasal Cannula 3.0 32 07/13/17 14:56 Nasal Cannula 3.0 32 07/13/17 14:55 104 34 07/13/17 12:00 106 07/13/17 12:00 97.5 110 18 143/88 96 Nasal Cannula 3.0 07/13/17 09:00 107 135/79 07/13/17 08:00 98.7 111 19 135/79 95 Nasal Cannula 3.0 07/13/17 08:00 107 07/13/17 04:00 103 07/13/17 04:00 97.8 95 20 136/84 98 Nasal Cannula 3.0 07/13/17 00:00 96.6 98 22 130/88 98 Nasal Cannula 3.0 07/13/17 00:00 97 07/12/17 20:24 99 127/81 07/12/17 20:00 96.6 99 20 127/81 95 Nasal Cannula 3.0 07/12/17 20:00 97 07/12/17 16:00 97.6 96 18 126/71 95 Nasal Cannula 3.0 07/12/17 16:00 97 Intake and Output 07/12/17 07/13/17 19:00 07:00 Intake Total 250 ml 530 ml Output Total 50 ml Balance 200 ml 530 ml Intake Free Water 50 ml 50 ml Tube Feeding 200 ml 480 ml Output Urine Total 50 ml # Bowel Movements 1 General Appearance: no acute distress HEENT: atraumatic Respiratory/Chest: rhonchi Cardiovascular: normal rate Microbiology Date/Time Source Procedure Growth Status 07/11/17 18:00 Ankle Left Gram Stain - Final Resulted 07/11/17 18:00 Wound Culture - Preliminary Gram Positive Cocci Resulted Laboratory Tests 07/13/17 08:30: White Blood Count 7.0, Red Blood Count 3.06L, Hemoglobin 8.8L, Hematocrit 28.1L , Mean Corpuscular Volume 92, Mean Corpuscular Hemoglobin 28.7, Mean Corpuscular Hemoglobin Concent 31.3L, Red Cell Distribution Width 19.7H, Platelet Count 514H, Mean Platelet Volume 5.8L, Neutrophils (%) (Auto) 58.5, Lymphocytes (%) (Auto) 22.3, Monocytes (%) (Auto) 16.3H, Eosinophils (%) (Auto) 2.2, Basophils (%) (Auto) 0.7, Prothrombin Time 12.2H, Prothromb Time International Ratio 1.2H, Activated Partial Thromboplast Time 37H, Sodium Level 139, Potassium Level 3.9, Chloride Level 105, Carbon Dioxide Level 24, Anion Gap 10, Blood Urea Nitrogen 48H, Creatinine 4.8H, Estimat Glomerular Filtration Rate , Glucose Level 130H, Calcium Level 7.9L Current Medications Medications (Trade) Dose Ordered Sig/Jaime Route PRN Reason Start Time Stop Time Status Last Admin Dose Admin Acetaminophen (Tylenol) 650 mg Q4H PRN RECTAL Prn Headache/Temp > 101 07/08/17 17:00 07/18/17 20:59 Albuterol Sulfate (Proventil) 2.5 mg Q4HRT HHN 07/13/17 11:00 07/18/17 10:59 07/13/17 14:56 Aspirin (ASA) 81 mg DAILY NG 07/09/17 09:00 07/19/17 18:59 07/13/17 08:37 Chlorhexidine Gluconate (Kati-Hex 2%) 1 applic Q24H TOPIC 07/08/17 20:00 07/19/17 19:59 07/12/17 20:23 Dextrose (Dextrose 50%) STAT PRN IV Hypoglycemia 07/09/17 13:00 07/19/17 12:59 Epoetin Russ (Procrit (for ESRD on dialysis)) 5,000 units MON-WED-FRI SUBQ 07/10/17 21:00 07/21/17 20:59 07/12/17 21:02 Heparin Sodium (Porcine) (Heparin 5000 units/ml) 5,000 units EVERY 12 HOURS SUBQ 07/08/17 21:00 07/18/17 20:59 07/12/17 20:26 Heparin Sodium (Porcine) (Heparin Sod 1000 units/ml 10ml) 500 unit ONCE PRN IV FOR HD USE 07/13/17 17:00 07/14/17 23:59 Insulin Aspart (NovoLOG) EVERY 6 HOURS SUBQ 07/08/17 18:00 07/19/17 17:59 07/13/17 05:09 Lansoprazole (Prevacid) 30 mg DAILY GT 07/09/17 09:00 07/19/17 08:59 07/13/17 08:37 Metoprolol Tartrate (Lopressor) 50 mg Q12HR ORAL 07/12/17 09:00 08/11/17 08:59 07/12/17 20:24 Sodium Chloride 550 ml @ 500 mls/hr Q1H6M PRN IV sbp<90 during hd 07/08/17 16:00 07/27/17 11:08 Sodium Chloride 1,000 ml @ 500 mls/hr Q2H PRN IVLG sbp<90 during hd 07/12/17 18:00 07/14/17 17:59 Vancomycin HCl (Vanco rx to dose) 1 ea DAILY PRN MISC Per rx protocol 07/09/17 14:15 08/08/17 14:14 PEG MARTINEZ Jul 13, 2017 15:35
[2017-07-13 16:00] VITALS: BP 120/55
--- NOTE | 2017-07-13 16:36 | Diagnostic Imaging Report ---
Indication: Patient requires long-term hemodialysis. Findings: After the indications, procedure, risks, complications, and alternatives of the procedure were explained, written informed consent was obtained. Patient was brought to the angio-fluoroscopic suite and placed supine on the table. All elements of maximum sterile barrier technique were followed including use of a cap and mask, sterile gown, sterile gloves, and a large sterile sheet. Alcohol used to prep the skin. 1% lidocaine was used to anesthetize the skin and subcutaneous tissue. Sonographic evaluation of the the left jugular vein was performed demonstrating a patent and compressible vein. Access using an 18 gauge needle was obtained under real-time ultrasound guidance and digital image was saved in archive. An 035 wire was then advanced into the vein and negotiated fluoroscopically into the inferior vena cava. Lidocaine infiltration of the right anterior chest wall was then performed followed by dermatotomy. A tunnel of lidocaine was then made between this site and the venous puncture site. A 14.5 spanish 23 cm dual-lumen catheter was then tunneled through the tract. The wire within the jugular vein was then exchanged for a dilator. Serial dilatations were performed. The catheter was then inserted into the last dilator/peel-away sheath such that the tip resides in the SVC. The dilator/peel-away sheath and wire were removed and the catheter was completely buried under the skin. Proximal portion of the catheter was secured to the skin using 2-0 Prolene suture. Both ports aspirate and flush easily. Both dermatotomy sites were closed with Dermabond. Total fluoroscopic time 2 minutes. Impression: Successful placement of tunneled left jugular hemodialysis catheter. No complications.
--- NOTE | 2017-07-13 16:41 | General Progress Note ---
Assessment/Plan Assessment/Plan 1) Healthcare-associated pneumonia (2) Malnutrition of moderate degree (3) End-stage renal disease (4) Respiratory failure (5) Septic shock Plan: He is supposed to get dialyzed today Subjective Allergies: Coded Allergies: No Known Allergies (Unverified , 06/18/17) Subjective He is crumpled in the bed, non verbal, no distress Objective Last 24 Hour Vital Signs Date Time Temp Pulse Resp B/P (MAP) Pulse Ox O2 Delivery O2 Flow Rate FiO2 07/13/17 15:10 110 32 98 Nasal Cannula 3.0 32 07/13/17 14:56 99 Nasal Cannula 3.0 32 07/13/17 14:56 104 34 99 Nasal Cannula 3.0 32 07/13/17 14:56 Nasal Cannula 3.0 32 07/13/17 14:55 104 34 07/13/17 12:00 106 07/13/17 12:00 97.5 110 18 143/88 96 Nasal Cannula 3.0 07/13/17 09:00 107 135/79 07/13/17 08:00 98.7 111 19 135/79 95 Nasal Cannula 3.0 07/13/17 08:00 107 07/13/17 04:00 103 07/13/17 04:00 97.8 95 20 136/84 98 Nasal Cannula 3.0 07/13/17 00:00 96.6 98 22 130/88 98 Nasal Cannula 3.0 07/13/17 00:00 97 07/12/17 20:24 99 127/81 07/12/17 20:00 96.6 99 20 127/81 95 Nasal Cannula 3.0 07/12/17 20:00 97 Intake and Output 07/12/17 07/13/17 19:00 07:00 Intake Total 250 ml 530 ml Output Total 50 ml Balance 200 ml 530 ml Intake Free Water 50 ml 50 ml Tube Feeding 200 ml 480 ml Output Urine Total 50 ml # Bowel Movements 1 Laboratory Tests 07/13/17 08:30: White Blood Count 7.0, Red Blood Count 3.06L, Hemoglobin 8.8L, Hematocrit 28.1L , Mean Corpuscular Volume 92, Mean Corpuscular Hemoglobin 28.7, Mean Corpuscular Hemoglobin Concent 31.3L, Red Cell Distribution Width 19.7H, Platelet Count 514H, Mean Platelet Volume 5.8L, Neutrophils (%) (Auto) 58.5, Lymphocytes (%) (Auto) 22.3, Monocytes (%) (Auto) 16.3H, Eosinophils (%) (Auto) 2.2, Basophils (%) (Auto) 0.7, Prothrombin Time 12.2H, Prothromb Time International Ratio 1.2H, Activated Partial Thromboplast Time 37H, Sodium Level 139, Potassium Level 3.9, Chloride Level 105, Carbon Dioxide Level 24, Anion Gap 10, Blood Urea Nitrogen 48H, Creatinine 4.8H, Estimat Glomerular Filtration Rate , Glucose Level 130H, Calcium Level 7.9L 07/13/17 16:15: Random Vancomycin Level [Pending] Height (Feet): 5 Height (Inches): 10.00 Weight (Pounds): 172 General Appearance: WD/WN, no apparent distress, alert EENT: PERRL/EOMI Neck: non-tender, supple Cardiovascular: normal peripheral pulses, normal rate, no JVD Respiratory/Chest: rhonchi - bilaterally Abdomen: non tender, soft Edema: trace edema Neurologic: bus starter II-XII grossly normal, disoriented JEAN-CLAUDE GAUIRRE Jul 13, 2017 16:41
[2017-07-13] MEDS ORDERED: Heparin Sod 1000 units/ml 10ml IV PRN (17:00)
[2017-07-13 20:00] VITALS: BP 122/73
[2017-07-13] MEDS: Dyna-Hex 2% Top Sol 2oz TOPIC SCH (20:35)
--- NOTE | 2017-07-13 22:00 | Progress Note ---
DATE: 07/13/2017 CARDIOLOGY PROGRESS NOTE SUBJECTIVE: The patient remains off ventilator support, requiring his regular hemodialysis three times a week. He continues with wound care for his ankle. MRI is pending and remains on IV antibiotics. G-tube is scheduled for placement tomorrow. OBJECTIVE: VITAL SIGNS: Blood pressure 135/79, pulse 111, respirations 19, and afebrile. LUNGS: Coarse breath sounds. Scattered rhonchi. HEART: Regular rhythm and rate. Normal S1 and S2. ABDOMEN: Soft. EXTREMITIES: Trace edema. Ankle has dressing in place. LABORATORY DATA: White count 7 and hemoglobin 8.8. Potassium 3.9. Albumin 1.4. IMPRESSION: 1. Status post respiratory failure. 2. Status post acute myocardial infarction. 3. Status post sepsis with shock. 4. Possible osteomyelitis of ankle. 5. Dysphagia. 6. Dementia. 7. End-stage renal disease. 8. Secondary sinus tachycardia. PLAN: 1. Await G-tube. 2. Respiratory hygiene. 3. Aspiration precautions. 4. Antimicrobials per Infectious Disease business solutions consultant. 5. Continue beta-lory therapy. 6. Anti-platelet therapy with aspirin. 7. Dose adjust Epogen. Gurdeep Harvey M.D. DR: MALCOLM JOB#: [id number] CC:
[2017-07-14] VITALS (9 sets, daily range): BP systolic 113–147; BP diastolic 71–84
[2017-07-14] MEDS: Albuterol ud Inhalation HHN SCH ×6 (02:48→23:05)
[2017-07-14] MEDS: NovoLOG Insulin Flexpen SUBQ SCH ×4 (05:07→23:55)
--- NOTE | 2017-07-14 06:49 | Anethesia Preoperative Eval ---
Anesthesia Pre-op PMH/ROS General Date of Evaluation: Jul 14, 2017 Time of Evaluation: 06:35 Anesthesiologist: Yumiko ASA Score: ASA 3 Mallampati Score Class I : Soft palate, uvula, fauces, pillars visible Class II: Soft palate, uvula, fauces visible Class III: Soft palate, base of uvula visible Class IV: Only hard plate visible Mallampati Classification: Class III Surgeon: Ruddy Diagnosis: Septic shock, malnutrition Surgical Procedure: Egd/PEG Anesthesia History: none Family History: no anesthesia problems Allergies: Coded Allergies: No Known Allergies (Unverified , 06/18/17) Medications: see eMAR Past Medical History Cardiovascular: Reports: other - NSTEMI in past Pulmonary: Reports: other - pneumonia, resp failure Gastrointestinal/Genitourinary: Reports: CRI, ESRD, other - malnutrition moderate degree Neurologic/Psychiatric: Reports: dementia Endocrine: Reports: DM - on dialysis Hematology/Immune: Reports: anemia, other - septic shock Musculoskeletal/Integumentary: Reports: OA Anesthesia Pre-op Phys. Exam Physician Exam Last Vital Signs Date Time Temp Pulse Resp B/P (MAP) Pulse Ox O2 Delivery O2 Flow Rate FiO2 07/14/17 04:00 105 07/14/17 04:00 97.9 19 130/71 100 Nasal Cannula 3.0 07/14/17 02:56 32 Constitutional: NAD Neurologic: other Cardiovascular: RRR Respiratory: other - diminished at bases, slight wheezing Gastrointestinal: S/NT/ND Airway Exam Mallampati Score: Class III MO: limited ROM: limited Teeth: missing Anesthesia Pre-op A/P Labs Hematology Test 07/13/17 08:30 White Blood Count 7.0 K/UL (4.8-10.8) Red Blood Count 3.06 M/UL (4.70-6.10) L Hemoglobin 8.8 G/DL (14.2-18.0) L Hematocrit 28.1 % (42.0-52.0) L Mean Corpuscular Volume 92 FL (80-99) Mean Corpuscular Hemoglobin 28.7 PG (27.0-31.0) Mean Corpuscular Hemoglobin Concent 31.3 G/DL (32.0-36.0) L Red Cell Distribution Width 19.7 % (11.6-14.8) H Platelet Count 514 K/UL (150-450) H Mean Platelet Volume 5.8 FL (6.5-10.1) L Neutrophils (%) (Auto) 58.5 % (45.0-75.0) Lymphocytes (%) (Auto) 22.3 % (20.0-45.0) Monocytes (%) (Auto) 16.3 % (1.0-10.0) H Eosinophils (%) (Auto) 2.2 % (0.0-3.0) Basophils (%) (Auto) 0.7 % (0.0-2.0) Coagulation Test 07/13/17 08:30 Prothrombin Time 12.2 SEC (9.30-11.50) H Prothromb Time International Ratio 1.2 (0.9-1.1) H Activated Partial Thromboplast Time 37 SEC (23-33) H Chemistry Test 07/13/17 08:30 Sodium Level 139 MMOL/L (136-145) Potassium Level 3.9 MMOL/L (3.5-5.1) Chloride Level 105 MMOL/L (98-107) Carbon Dioxide Level 24 MMOL/L (21-32) Anion Gap 10 mmol/L (5-15) Blood Urea Nitrogen 48 mg/dL (7-18) H Creatinine 4.8 MG/DL (0.55-1.30) H Estimat Glomerular Filtration Rate mL/min (>60) Glucose Level 130 MG/DL (74-106) H Calcium Level 7.9 MG/DL (8.5-10.1) L Studies Pre-op Studies: EKG - NST with PACs 136 BPM Risk Assessment & Plan Assessment: Pt confused and has no family. Pt unable to sign consent but procedure necessary per surgeon Plan: MAC with light sedation Status Change Before Surgery: No Pre-Antibiotics Given Within 1 Hr of Incision: Hien Craig CRNA Jul 14, 2017 06:49
[2017-07-14] MEDS ORDERED: Midazolam 2mg/2ml Inj ONE (07:00)
[2017-07-14] MEDS ORDERED: Propofol 200mg/20ml IV ONE (07:00)
[2017-07-14] MEDS ORDERED: NS 500ML IV ONE (07:09)
--- NOTE | 2017-07-14 07:18 | General Progress Note ---
Assessment/Plan Assessment/Plan Assessment - Dysphagia - OBS - abnormal LFT --> Hepatitis C (+) - renal failure - Anemia - CVA Recommendations - check abd U/S after EGD - PEG today - need to place on urgent basis to avoid aspiration and malnutrition (No DPOA -will place on emergency basis) - TF tomorrow Subjective Allergies: Coded Allergies: No Known Allergies (Unverified , 06/18/17) Subjective above noted no events overnight non communicative NPO for PEG Objective Last 24 Hour Vital Signs Date Time Temp Pulse Resp B/P (MAP) Pulse Ox O2 Delivery O2 Flow Rate FiO2 07/14/17 04:00 105 07/14/17 04:00 97.9 89 19 130/71 100 Nasal Cannula 3.0 07/14/17 02:56 102 26 100 Nasal Cannula 3.0 32 07/14/17 02:48 98 22 98 Nasal Cannula 3.0 32 07/14/17 00:00 97.7 74 18 138/79 100 Nasal Cannula 3.0 07/14/17 00:00 105 07/13/17 22:54 96 30 100 Nasal Cannula 3.0 32 07/13/17 22:47 92 26 99 Nasal Cannula 3.0 32 07/13/17 20:31 88 122/74 07/13/17 20:00 98.0 79 20 122/73 99 Nasal Cannula 3.0 07/13/17 20:00 105 07/13/17 19:30 Nasal Cannula 2.0 07/13/17 19:13 92 32 99 Nasal Cannula 3.0 32 07/13/17 19:02 98 Nasal Cannula 3.0 32 07/13/17 19:02 Nasal Cannula 3.0 32 07/13/17 19:00 83 24 98 Nasal Cannula 3.0 32 07/13/17 16:00 98.5 108 19 120/55 98 Nasal Cannula 3.0 07/13/17 16:00 107 07/13/17 15:10 110 32 98 Nasal Cannula 3.0 32 07/13/17 14:56 99 Nasal Cannula 3.0 32 07/13/17 14:56 104 34 99 Nasal Cannula 3.0 32 07/13/17 14:56 Nasal Cannula 3.0 32 07/13/17 14:55 104 34 07/13/17 12:00 106 07/13/17 12:00 97.5 110 18 143/88 96 Nasal Cannula 3.0 07/13/17 09:00 107 135/79 07/13/17 08:00 98.7 111 19 135/79 95 Nasal Cannula 3.0 07/13/17 08:00 107 Intake and Output 07/13/17 07/14/17 19:00 07:00 Intake Total 540 ml 250 ml Output Total 50 ml 35 ml Balance 490 ml 215 ml Intake Free Water 100 ml 50 ml Tube Feeding 440 ml 200 ml Output Urine Total 50 ml 35 ml # Voids 1 # Bowel Movements 1 Laboratory Tests 07/13/17 08:30: White Blood Count 7.0, Red Blood Count 3.06L, Hemoglobin 8.8L, Hematocrit 28.1L , Mean Corpuscular Volume 92, Mean Corpuscular Hemoglobin 28.7, Mean Corpuscular Hemoglobin Concent 31.3L, Red Cell Distribution Width 19.7H, Platelet Count 514H, Mean Platelet Volume 5.8L, Neutrophils (%) (Auto) 58.5, Lymphocytes (%) (Auto) 22.3, Monocytes (%) (Auto) 16.3H, Eosinophils (%) (Auto) 2.2, Basophils (%) (Auto) 0.7, Prothrombin Time 12.2H, Prothromb Time International Ratio 1.2H, Activated Partial Thromboplast Time 37H, Sodium Level 139, Potassium Level 3.9, Chloride Level 105, Carbon Dioxide Level 24, Anion Gap 10, Blood Urea Nitrogen 48H, Creatinine 4.8H, Estimat Glomerular Filtration Rate , Glucose Level 130H, Calcium Level 7.9L 07/13/17 16:15: Random Vancomycin Level 24.3 Height (Feet): 5 Height (Inches): 8.00 Weight (Pounds): 173 Objective Debilitated AA man NCAT, (+) NGT supple Chest: (+) ronchi RR , tachy abd soft ND NT no edema OBS, contractures MONIKA SMITH Jul 14, 2017 07:18
--- NOTE | 2017-07-14 07:22 | Pre-Procedure Note/Attestation ---
Pre-Procedure Note/Attestation Complete Prior to Procedure Planned Procedure: not applicable Procedure Narrative: EGD/PEG Indications for Procedure Pre-Operative Diagnosis: dysphagia Attestation I attest that I have not been able to discuss the nature of the procedure; its benefits; risks and complications; and alternatives (and the risks and benefits of such alternatives), prior to the procedure, with the patient (or the patient' s legal inbound customer service representative). Patient has dementia/delirium and not competent to discuss. No family or next of kin available. The procedure is being done on urgent basis to prevent further complications such as malnutrition, sinusitis ( form NGT) and reflux/aspiration (NGT related). Second MD agreed. I attest that, if there was a reasonable possibility of needing a blood transfusion, the patient (or the patient's legal inbound customer service representative) could not be given the [place] Department [employer] standardized written summary , pursuant to the Deangelo James Blood Safety Act ([place] Health and Safety Code # 1645, as amended) due to reasons above I attest that I re-evaluated the patient just prior to the surgery and that there has been no change in the patient's H&P, except as documented below: MONIKA SMITH Jul 14, 2017 07:22
--- NOTE | 2017-07-14 08:06 | Immediate Post-Op Evaluation ---
Immediate Post-Op Evalulation Immediate Post-Op Evalulation Procedure: EGD/ PEG Date of Evaluation: Jul 14, 2017 Time of Evaluation: 07:52 IV Fluids: NSS 260ml Blood Products: 0 Estimated Blood Loss: 0 Urinary Output: 20 ml dark urine via condom pichardo Blood Pressure Systolic: 108 Blood Pressure Diastolic: 76 Pulse Rate: 99 Respiratory Rate: 12 O2 Sat by Pulse Oximetry: 97 Temperature (Fahrenheit): 97.1 Pain Score (1-10): 0 Nausea: No Vomiting: No Patient Status: awake, reacts Hydration Status: adequate Given Within 1 Hr of Incision: No - none per surgeon Hien Calderon CRNA Jul 14, 2017 08:06
--- NOTE | 2017-07-14 08:07 | 48 Hour Post Anesthesia Eval ---
Post Anesthesia Evaluation Procedure: EGD/ PEG Date of Evaluation: Jul 14, 2017 Time of Evaluation: 08:06 Blood Pressure Systolic: 112 0: 75 Pulse Rate: 99 Respiratory Rate: 14 Temperature (Fahrenheit): 97.1 O2 Sat by Pulse Oximetry: 98 Airway: patent Nausea: No Vomiting: No Pain Intensity: 0 Hydration Status: adequate Cardiopulmonary Status: WNL as per baseline Mental Status/LOC: patient returned to baseline Post-Anesthesia Complications: none Follow-up care needed: patient intructions given Hien Calderon CRNA Jul 14, 2017 08:07
[2017-07-14] MEDS: Heparin 5000 units/ml inj SUBQ SCH ×2 (09:00→20:34)
[2017-07-14] MEDS: Aspirin Baby 81mg NG SCH (09:06)
[2017-07-14] MEDS: Metoprolol 25mg tab ORAL SCH ×2 (09:06→20:31)
--- NOTE | 2017-07-14 09:21 | General Progress Note ---
Assessment/Plan Problem List: (1) Catheter-related bloodstream infection ICD Codes: T80.211A - Bloodstream infection due to central venous catheter, initial encounter SNOMED: 931845965 (2) Renal failure ICD Codes: N19 - Unspecified kidney failure SNOMED: 81331882 (3) Septic shock ICD Codes: A41.9 - Sepsis, unspecified organism; R65.21 - Severe sepsis with septic shock SNOMED: 09226963 (4) Respiratory failure ICD Codes: J96.90 - Respiratory failure, unspecified, unspecified whether with hypoxia or hypercapnia SNOMED: 556166954 (5) Malnutrition of moderate degree ICD Codes: E44.0 - Moderate protein-calorie malnutrition SNOMED: 153632494 (6) End-stage renal disease ICD Codes: N18.6 - End stage renal disease SNOMED: 14118815 (7) Healthcare-associated pneumonia ICD Codes: J18.9 - Pneumonia, unspecified organism SNOMED: 762203143 Status: stable, progressing Assessment/Plan cont iv abx per id HD as tolerated resp rx feeds via ngt/ogt mri foot needs urgent GT to prevent life threatening aspiration pna- scheduled for this am dvt/stress ulcer prophyalxi monitor h/h transfuse as needed epo/iron guarded but improving dnr Subjective ROS Limited/Unobtainable: Yes Constitutional: Reports: malaise, weakness HEENT: Reports: no symptoms Cardiovascular: Reports: no symptoms Respiratory: Reports: cough Gastrointestinal/Abdominal: Reports: difficulty swallowing Genitourinary: Reports: no symptoms Neurologic/Psychiatric: Reports: pre-existing deficit Endocrine: Reports: no symptoms Hematologic/Lymphatic: Reports: no symptoms Allergies: Coded Allergies: No Known Allergies (Unverified , 06/18/17) All Systems: reviewed and negative except above Subjective no events. minimal congestion. npo for GT placement, Objective Last 24 Hour Vital Signs Date Time Temp Pulse Resp B/P (MAP) Pulse Ox O2 Delivery O2 Flow Rate FiO2 07/14/17 09:06 95 122/71 07/14/17 08:49 Nasal Cannula 3.0 32 07/14/17 08:49 98 Nasal Cannula 3.0 32 07/14/17 08:08 101 20 124/82 97 Nasal Cannula 3.0 07/14/17 08:07 99 14 98 07/14/17 08:06 99 12 97 07/14/17 08:02 100 20 120/80 97 Nasal Cannula 3.0 07/14/17 07:57 100 20 115/76 97 Nasal Cannula 3.0 07/14/17 07:52 97.1 100 20 113/75 97 Nasal Cannula 3.0 07/14/17 07:00 Nasal Cannula 07/14/17 07:00 Nasal Cannula 07/14/17 04:00 105 07/14/17 04:00 97.9 89 19 130/71 100 Nasal Cannula 3.0 07/14/17 02:56 102 26 100 Nasal Cannula 3.0 32 07/14/17 02:48 98 22 98 Nasal Cannula 3.0 32 07/14/17 00:00 97.7 74 18 138/79 100 Nasal Cannula 3.0 07/14/17 00:00 105 07/13/17 22:54 96 30 100 Nasal Cannula 3.0 32 07/13/17 22:47 92 26 99 Nasal Cannula 3.0 32 07/13/17 20:31 88 122/74 07/13/17 20:00 98.0 79 20 122/73 99 Nasal Cannula 3.0 07/13/17 20:00 105 07/13/17 19:30 Nasal Cannula 2.0 07/13/17 19:13 92 32 99 Nasal Cannula 3.0 32 07/13/17 19:02 98 Nasal Cannula 3.0 32 07/13/17 19:02 Nasal Cannula 3.0 32 07/13/17 19:00 83 24 98 Nasal Cannula 3.0 32 07/13/17 16:00 98.5 108 19 120/55 98 Nasal Cannula 3.0 07/13/17 16:00 107 07/13/17 15:10 110 32 98 Nasal Cannula 3.0 32 07/13/17 14:56 99 Nasal Cannula 3.0 32 07/13/17 14:56 104 34 99 Nasal Cannula 3.0 32 07/13/17 14:56 Nasal Cannula 3.0 32 07/13/17 14:55 104 34 07/13/17 12:00 106 07/13/17 12:00 97.5 110 18 143/88 96 Nasal Cannula 3.0 Intake and Output 07/13/17 07/14/17 19:00 07:00 Intake Total 540 ml 250 ml Output Total 50 ml 35 ml Balance 490 ml 215 ml Intake Free Water 100 ml 50 ml Tube Feeding 440 ml 200 ml Output Urine Total 50 ml 35 ml # Voids 1 # Bowel Movements 1 Laboratory Tests 07/13/17 16:15: Random Vancomycin Level 24.3 Height (Feet): 5 Height (Inches): 8.00 Weight (Pounds): 173 Objective General Appearance: WD/WN, alert, confused Neck: supple Cardiovascular: regular rhythm Respiratory/Chest: chest wall non-tender, few rhonchi, normal breath sounds, no respiratory distress Abdomen: normal bowel sounds, non tender, soft, no organomegaly, no mass Edema: no edema noted Arm (L), no edema noted Arm (R), no edema noted Leg (L), no edema noted Leg (R), no edema noted Pedal (L), no edema noted Pedal (R), no edema noted Generalized Neurologic: more alert, aphasia KEENA BRANDT Jul 14, 2017 09:21
--- NOTE | 2017-07-14 09:37 | Pulmonology Progress Note ---
Assessment/Plan Assessment/Plan 1. Respiratory failure. 2. Sepsis with shock. 3. Dialysis catheter sepsis 4. Stroke with dementia and right hemiparesis. 5. Diabetes. PEG placed today, tolerated well MRI w osteo foot on HD nebs and suction abx per id DNR/DNI HHN O2 prognosis guarded Subjective ROS Limited/Unobtainable: Yes Allergies: Coded Allergies: No Known Allergies (Unverified , 06/18/17) Objective Last 24 Hour Vital Signs Date Time Temp Pulse Resp B/P (MAP) Pulse Ox O2 Delivery O2 Flow Rate FiO2 07/14/17 09:06 95 122/71 07/14/17 08:49 Nasal Cannula 3.0 32 07/14/17 08:49 98 Nasal Cannula 3.0 32 07/14/17 08:08 101 20 124/82 97 Nasal Cannula 3.0 07/14/17 08:07 99 14 98 07/14/17 08:06 99 12 97 07/14/17 08:02 100 20 120/80 97 Nasal Cannula 3.0 07/14/17 08:00 98 07/14/17 07:57 100 20 115/76 97 Nasal Cannula 3.0 07/14/17 07:52 97.1 100 20 113/75 97 Nasal Cannula 3.0 07/14/17 07:00 Nasal Cannula 07/14/17 07:00 Nasal Cannula 07/14/17 04:00 105 07/14/17 04:00 97.9 89 19 130/71 100 Nasal Cannula 3.0 07/14/17 02:56 102 26 100 Nasal Cannula 3.0 32 07/14/17 02:48 98 22 98 Nasal Cannula 3.0 32 07/14/17 00:00 97.7 74 18 138/79 100 Nasal Cannula 3.0 07/14/17 00:00 105 07/13/17 22:54 96 30 100 Nasal Cannula 3.0 32 07/13/17 22:47 92 26 99 Nasal Cannula 3.0 32 07/13/17 20:31 88 122/74 07/13/17 20:00 98.0 79 20 122/73 99 Nasal Cannula 3.0 07/13/17 20:00 105 07/13/17 19:30 Nasal Cannula 2.0 07/13/17 19:13 92 32 99 Nasal Cannula 3.0 32 07/13/17 19:02 98 Nasal Cannula 3.0 32 07/13/17 19:02 Nasal Cannula 3.0 32 07/13/17 19:00 83 24 98 Nasal Cannula 3.0 32 07/13/17 16:00 98.5 108 19 120/55 98 Nasal Cannula 3.0 07/13/17 16:00 107 07/13/17 15:10 110 32 98 Nasal Cannula 3.0 32 07/13/17 14:56 99 Nasal Cannula 3.0 32 07/13/17 14:56 104 34 99 Nasal Cannula 3.0 32 07/13/17 14:56 Nasal Cannula 3.0 32 07/13/17 14:55 104 34 07/13/17 12:00 106 07/13/17 12:00 97.5 110 18 143/88 96 Nasal Cannula 3.0 Intake and Output 07/13/17 07/14/17 18:59 06:59 Intake Total 540 ml 290 ml Output Total 50 ml 35 ml Balance 490 ml 255 ml Intake Free Water 100 ml 50 ml Tube Feeding 440 ml 240 ml Output Urine Total 50 ml 35 ml # Voids 1 # Bowel Movements 1 General Appearance: no acute distress Respiratory/Chest: rhonchi Cardiovascular: normal rate Microbiology Date/Time Source Procedure Growth Status 07/11/17 18:00 Ankle Left Gram Stain - Final Resulted 07/11/17 18:00 Wound Culture - Preliminary Gram Positive Cocci Resulted Laboratory Tests 07/13/17 16:15: Random Vancomycin Level 24.3 Current Medications Medications (Trade) Dose Ordered Sig/Jaime Route PRN Reason Start Time Stop Time Status Last Admin Dose Admin Acetaminophen (Tylenol) 650 mg Q4H PRN RECTAL Prn Headache/Temp > 101 07/08/17 17:00 07/18/17 20:59 Albuterol Sulfate (Proventil) 2.5 mg Q4HRT HHN 07/13/17 11:00 07/18/17 10:59 07/14/17 02:48 Aspirin (ASA) 81 mg DAILY NG 07/09/17 09:00 07/19/17 18:59 07/14/17 09:06 Chlorhexidine Gluconate (Kati-Hex 2%) 1 applic Q24H TOPIC 07/08/17 20:00 07/19/17 19:59 07/13/17 20:35 Dextrose (Dextrose 50%) STAT PRN IV Hypoglycemia 07/09/17 13:00 07/19/17 12:59 Epoetin Russ (Procrit (for ESRD on dialysis)) 5,000 units MON-MON-MON SUBQ 07/10/17 21:00 07/21/17 20:59 07/12/17 21:02 Heparin Sodium (Porcine) (Heparin 5000 units/ml) 5,000 units EVERY 12 HOURS SUBQ 07/08/17 21:00 07/18/17 20:59 07/12/17 20:26 Heparin Sodium (Porcine) (Heparin Sod 1000 units/ml 10ml) 500 unit ONCE PRN IV FOR HD USE 07/13/17 17:00 07/14/17 23:59 Insulin Aspart (NovoLOG) EVERY 6 HOURS SUBQ 07/08/17 18:00 07/19/17 17:59 07/13/17 17:35 Lansoprazole (Prevacid) 30 mg DAILY GT 07/09/17 09:00 07/19/17 08:59 07/14/17 09:06 Metoprolol Tartrate (Lopressor) 50 mg Q12HR ORAL 07/12/17 09:00 08/11/17 08:59 07/14/17 09:06 Sodium Chloride 550 ml @ 500 mls/hr Q1H6M PRN IV sbp<90 during hd 07/08/17 16:00 07/27/17 11:08 Sodium Chloride 1,000 ml @ 500 mls/hr Q2H PRN IVLG sbp<90 during hd 07/12/17 18:00 07/14/17 17:59 Vancomycin HCl (Vanco rx to dose) 1 ea DAILY PRN MISC Per rx protocol 07/09/17 14:15 08/08/17 14:14 PEG MARTINEZ Jul 14, 2017 09:37
[2017-07-14] MEDS: D5 1/2NS 1,000 ML IV SCH ×2 (10:44→22:35)
--- NOTE | 2017-07-14 12:40 | Infectious Diseases Prog Note ---
"Assessment/Plan Assessment/Plan antibiotics : vancomycin iv A 1. MRSA sepsis s/p catheter removal 2. septic shock 3. respiratory failure resolved 4. renal failure 5. MRSA | enterobacter pneumonia 6. leucocytosis resolved 7. 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 continue vancomycin iv 2 more days 2. will follow up cultures 3. start po amoxicillin, fluconazole, continue 6 weeks Subjective ROS Limited/Unobtainable: Yes Allergies: Coded Allergies: No Known Allergies (Unverified , 06/18/17) Objective Vital Signs Last 24 Hour Vital Signs Date Time Temp Pulse Resp B/P (MAP) Pulse Ox O2 Delivery O2 Flow Rate FiO2 07/14/17 10:44 103 25 99 Nasal Cannula 3.0 32 07/14/17 10:34 100 26 97 Nasal Cannula 3.0 32 07/14/17 09:06 95 122/71 07/14/17 08:49 Nasal Cannula 3.0 32 07/14/17 08:49 98 Nasal Cannula 3.0 32 07/14/17 08:08 101 20 124/82 97 Nasal Cannula 3.0 07/14/17 08:07 99 14 98 07/14/17 08:06 99 12 97 07/14/17 08:02 100 20 120/80 97 Nasal Cannula 3.0 07/14/17 08:00 98 07/14/17 07:57 100 20 115/76 97 Nasal Cannula 3.0 07/14/17 07:52 97.1 100 20 113/75 97 Nasal Cannula 3.0 07/14/17 07:00 Nasal Cannula 07/14/17 07:00 Nasal Cannula 07/14/17 04:00 105 07/14/17 04:00 97.9 89 19 130/71 100 Nasal Cannula 3.0 07/14/17 02:56 102 26 100 Nasal Cannula 3.0 32 07/14/17 02:48 98 22 98 Nasal Cannula 3.0 32 07/14/17 00:00 97.7 74 18 138/79 100 Nasal Cannula 3.0 07/14/17 00:00 105 07/13/17 22:54 96 30 100 Nasal Cannula 3.0 32 07/13/17 22:47 92 26 99 Nasal Cannula 3.0 32 07/13/17 20:31 88 122/74 07/13/17 20:00 98.0 79 20 122/73 99 Nasal Cannula 3.0 07/13/17 20:00 105 07/13/17 19:30 Nasal Cannula 2.0 07/13/17 19:13 92 32 99 Nasal Cannula 3.0 32 07/13/17 19:02 98 Nasal Cannula 3.0 32 07/13/17 19:02 Nasal Cannula 3.0 32 07/13/17 19:00 83 24 98 Nasal Cannula 3.0 32 07/13/17 16:00 98.5 108 19 120/55 98 Nasal Cannula 3.0 07/13/17 16:00 107 07/13/17 15:10 110 32 98 Nasal Cannula 3.0 32 07/13/17 14:56 99 Nasal Cannula 3.0 32 07/13/17 14:56 104 34 99 Nasal Cannula 3.0 32 07/13/17 14:56 Nasal Cannula 3.0 32 07/13/17 14:55 104 34 Height (Feet): 5 Height (Inches): 8.00 Weight (Pounds): 173 Respiratory/Chest: lungs clear Cardiovascular: normal rate, regular rhythm, no gallop/murmur Abdomen: soft, non tender Extremities: no edema, other - left subclavian catheter Microbiology Date/Time Source Procedure Growth Status 07/11/17 18:00 Ankle Left Gram Stain - Final Resulted 07/11/17 18:00 Wound Culture - Preliminary Enterococcus Faecalis - Vre Yeast Species Resulted Laboratory Tests Test 07/13/17 16:15 Random Vancomycin Level 24.3 ug/mL ARTIS SANTIAGO Jul 14, 2017 12:40"
[2017-07-14] MEDS: Fluconazole 100mg tab GT SCH (13:39)
--- NOTE | 2017-07-14 15:11 | General Progress Note ---
Assessment/Plan Assessment/Plan 1) Healthcare-associated pneumonia (2) Malnutrition of moderate degree (3) End-stage renal disease (4) Respiratory failure (5) Septic shock Plan: Next HD tomorrow Subjective Allergies: Coded Allergies: No Known Allergies (Unverified , 06/18/17) Subjective He is crumpled in the bed, non verbal, no distress, he had Hd yesterday with 1 L removal Objective Last 24 Hour Vital Signs Date Time Temp Pulse Resp B/P (MAP) Pulse Ox O2 Delivery O2 Flow Rate FiO2 07/14/17 14:40 99 24 97 Nasal Cannula 3.0 32 07/14/17 12:00 93 07/14/17 12:00 96.6 82 19 122/82 95 Nasal Cannula 3.0 07/14/17 10:44 103 25 99 Nasal Cannula 3.0 32 07/14/17 10:34 100 26 97 Nasal Cannula 3.0 32 07/14/17 09:06 95 122/71 07/14/17 08:49 Nasal Cannula 3.0 32 07/14/17 08:49 98 Nasal Cannula 3.0 32 07/14/17 08:08 101 20 124/82 97 Nasal Cannula 3.0 07/14/17 08:07 99 14 98 07/14/17 08:06 99 12 97 07/14/17 08:02 100 20 120/80 97 Nasal Cannula 3.0 07/14/17 08:00 98 07/14/17 07:57 100 20 115/76 97 Nasal Cannula 3.0 07/14/17 07:52 97.1 100 20 113/75 97 Nasal Cannula 3.0 07/14/17 07:00 Nasal Cannula 07/14/17 07:00 Nasal Cannula 07/14/17 04:00 105 07/14/17 04:00 97.9 89 19 130/71 100 Nasal Cannula 3.0 07/14/17 02:56 102 26 100 Nasal Cannula 3.0 32 07/14/17 02:48 98 22 98 Nasal Cannula 3.0 32 07/14/17 00:00 97.7 74 18 138/79 100 Nasal Cannula 3.0 07/14/17 00:00 105 07/13/17 22:54 96 30 100 Nasal Cannula 3.0 32 07/13/17 22:47 92 26 99 Nasal Cannula 3.0 32 07/13/17 20:31 88 122/74 07/13/17 20:00 98.0 79 20 122/73 99 Nasal Cannula 3.0 07/13/17 20:00 105 07/13/17 19:30 Nasal Cannula 2.0 07/13/17 19:13 92 32 99 Nasal Cannula 3.0 32 07/13/17 19:02 98 Nasal Cannula 3.0 32 07/13/17 19:02 Nasal Cannula 3.0 32 07/13/17 19:00 83 24 98 Nasal Cannula 3.0 32 07/13/17 16:00 98.5 108 19 120/55 98 Nasal Cannula 3.0 07/13/17 16:00 107 07/13/17 15:10 110 32 98 Nasal Cannula 3.0 32 Intake and Output 07/13/17 07/14/17 19:00 07:00 Intake Total 540 ml 250 ml Output Total 50 ml 35 ml Balance 490 ml 215 ml Intake Free Water 100 ml 50 ml Tube Feeding 440 ml 200 ml Output Urine Total 50 ml 35 ml # Voids 1 # Bowel Movements 1 Laboratory Tests 07/13/17 16:15: Random Vancomycin Level 24.3 Height (Feet): 5 Height (Inches): 8.00 Weight (Pounds): 173 General Appearance: WD/WN, no apparent distress EENT: PERRL/EOMI Neck: non-tender Cardiovascular: normal rate, regular rhythm, no JVD Respiratory/Chest: rhonchi - bilaterally Abdomen: normal bowel sounds, non tender Edema: mild edema Neurologic: no motor/sensory deficits, disoriented JEAN-CLAUDE AGUIRRE Jul 14, 2017 15:11
[2017-07-14] MEDS: Dyna-Hex 2% Top Sol 2oz TOPIC SCH (20:31)
[2017-07-14] MEDS: Epogen (for ESRD on dialysis) SUBQ SCH (20:32)
[2017-07-14] MEDS ORDERED: Tubing IV Secondary IV ONE (20:53)
[2017-07-14] MEDS ORDERED: NS 275ml ONE ×2 (20:53)
[2017-07-14] MEDS ORDERED: NS 500ML ONE (20:53)
[2017-07-15] VITALS: BP 120/81
[2017-07-15] MEDS: Albuterol ud Inhalation HHN SCH ×6 (03:42→23:33)
[2017-07-15 04:00] VITALS: BP 128/75
[2017-07-15] MEDS: NovoLOG Insulin Flexpen SUBQ SCH ×4 (05:57→23:22)
[2017-07-15 08:00] VITALS: BP 136/80
--- NOTE | 2017-07-15 08:20 | Diagnostic Imaging Report ---
Indication: Increased liver function tests, AST Technique: Ultrasound of the right upper quadrant. Comparison: None Findings: Liver: The liver is normal in size and echogenicity. No focal abnormalities are noted. Gallbladder: There is shadowing from the region of the neck of the gallbladder. Common bile duct: Normal in size. Pancreas: Not visualized. Kidney: Right kidney is small and echogenic. The right pleural effusion. There is a small amount of fluid in the right upper quadrant. Impression: Shadowing from the neck of the gallbladder. It is uncertain whether these represent gallstones or shadowing from the duodenum adjacent to the gallbladder neck. Repeat study with better imaging of the gallbladder suggested to exclude calculi.. Right pleural effusion and small amount of ascites. Small echogenic right kidney consistent with chronic disease.
[2017-07-15] MEDS: Metoprolol 25mg tab ORAL SCH ×2 (09:00→20:30)
[2017-07-15] MEDS: Aspirin Baby 81mg NG SCH (09:00)
[2017-07-15] MEDS: Heparin 5000 units/ml inj SUBQ SCH ×2 (09:26→20:31)
[2017-07-15] MEDS: Fluconazole 100mg tab GT SCH ×2 (09:29→21:09)
--- NOTE | 2017-07-15 11:49 | General Progress Note ---
Assessment/Plan Problem List: (1) Catheter-related bloodstream infection ICD Codes: T80.211A - Bloodstream infection due to central venous catheter, initial encounter SNOMED: 171849612 (2) Renal failure ICD Codes: N19 - Unspecified kidney failure SNOMED: 09160003 (3) Septic shock ICD Codes: A41.9 - Sepsis, unspecified organism; R65.21 - Severe sepsis with septic shock SNOMED: 97090012 (4) Respiratory failure ICD Codes: J96.90 - Respiratory failure, unspecified, unspecified whether with hypoxia or hypercapnia SNOMED: 654907347 (5) Malnutrition of moderate degree ICD Codes: E44.0 - Moderate protein-calorie malnutrition SNOMED: 730413397 (6) End-stage renal disease ICD Codes: N18.6 - End stage renal disease SNOMED: 33770142 (7) Healthcare-associated pneumonia ICD Codes: J18.9 - Pneumonia, unspecified organism SNOMED: 673917770 Assessment/Plan cont iv abx per id HD as tolerated resp rx feeds per gi mri foot dvt/stress ulcer prophyalxi monitor h/h transfuse as needed epo/iron guarded but improving dnr Subjective ROS Limited/Unobtainable: Yes Constitutional: Reports: malaise, weakness HEENT: Reports: no symptoms Cardiovascular: Reports: no symptoms Respiratory: Reports: cough Gastrointestinal/Abdominal: Reports: difficulty swallowing Genitourinary: Reports: no symptoms Neurologic/Psychiatric: Reports: pre-existing deficit Endocrine: Reports: no symptoms Hematologic/Lymphatic: Reports: no symptoms Allergies: Coded Allergies: No Known Allergies (Unverified , 06/18/17) All Systems: reviewed and negative except above Subjective no events. uncomplicated gt placement. not on feeds yet. remains poorly responsive at baseline. Objective Last 24 Hour Vital Signs Date Time Temp Pulse Resp B/P (MAP) Pulse Ox O2 Delivery O2 Flow Rate FiO2 07/15/17 11:30 99 20 99 Nasal Cannula 2.0 28 07/15/17 11:23 95 20 100 Nasal Cannula 2.0 28 07/15/17 09:00 102 128/75 07/15/17 08:00 96.7 100 21 136/80 100 Nasal Cannula 2.0 07/15/17 07:40 102 22 100 Nasal Cannula 2.0 28 07/15/17 07:36 99 20 99 Nasal Cannula 2.0 28 07/15/17 07:36 Nasal Cannula 2.0 28 07/15/17 07:35 99 Nasal Cannula 2.0 28 07/15/17 04:00 98.2 96 24 128/75 96 Nasal Cannula 2.0 07/15/17 04:00 93 07/15/17 03:50 92 20 99 Nasal Cannula 2.0 28 07/15/17 03:40 89 20 98 Nasal Cannula 2.0 28 07/15/17 00:00 97.6 66 20 120/81 97 Nasal Cannula 2.0 07/15/17 00:00 92 07/14/17 23:21 90 20 98 Nasal Cannula 2.0 28 07/14/17 23:05 88 20 98 Nasal Cannula 2.0 28 07/14/17 20:31 95 147/84 07/14/17 20:01 95 20 99 Nasal Cannula 3.0 32 07/14/17 20:00 97.7 66 20 147/84 96 Nasal Cannula 3.0 07/14/17 20:00 92 07/14/17 19:50 93 20 99 Nasal Cannula 3.0 32 07/14/17 19:50 Nasal Cannula 3.0 32 07/14/17 19:50 99 Nasal Cannula 3.0 32 07/14/17 16:00 96.0 96 19 121/77 98 Nasal Cannula 3.0 07/14/17 16:00 92 07/14/17 14:50 99 22 99 Nasal Cannula 3.0 32 07/14/17 14:40 99 24 97 Nasal Cannula 3.0 32 07/14/17 12:00 93 07/14/17 12:00 96.6 82 19 122/82 95 Nasal Cannula 3.0 Intake and Output 07/14/17 07/15/17 19:00 07:00 Intake Total 250 ml 680 ml Output Total 400 ml Balance 250 ml 280 ml IV Total 250 ml 680 ml Output Urine Total 400 ml # Voids 2 # Bowel Movements 1 3 Laboratory Tests 07/15/17 05:40: Random Vancomycin Level 20.4 Height (Feet): 5 Height (Inches): 8.00 Weight (Pounds): 170 Objective General Appearance: WD/WN, alert, confused Neck: supple Cardiovascular: regular rhythm Respiratory/Chest: chest wall non-tender, few rhonchi, normal breath sounds, no respiratory distress Abdomen: normal bowel sounds, non tender, soft, no organomegaly, no mass Edema: no edema noted Arm (L), no edema noted Arm (R), no edema noted Leg (L), no edema noted Leg (R), no edema noted Pedal (L), no edema noted Pedal (R), no edema noted Generalized Neurologic: more alert, aphasia KEENA BRANDT Jul 15, 2017 11:49
[2017-07-15 12:00] VITALS: BP 110/81
--- NOTE | 2017-07-15 12:10 | General Progress Note ---
Assessment/Plan Assessment/Plan 1) Healthcare-associated pneumonia (2) Malnutrition of moderate degree (3) End-stage renal disease (4) Respiratory failure (5) Septic shock Plan: Next HD today Subjective Allergies: Coded Allergies: No Known Allergies (Unverified , 06/18/17) Subjective He is doing status quo Objective Last 24 Hour Vital Signs Date Time Temp Pulse Resp B/P (MAP) Pulse Ox O2 Delivery O2 Flow Rate FiO2 07/15/17 11:30 99 20 99 Nasal Cannula 2.0 28 07/15/17 11:23 95 20 100 Nasal Cannula 2.0 28 07/15/17 09:00 102 128/75 07/15/17 08:00 96.7 100 21 136/80 100 Nasal Cannula 2.0 07/15/17 07:40 102 22 100 Nasal Cannula 2.0 28 07/15/17 07:36 99 20 99 Nasal Cannula 2.0 28 07/15/17 07:36 Nasal Cannula 2.0 28 07/15/17 07:35 99 Nasal Cannula 2.0 28 07/15/17 04:00 98.2 96 24 128/75 96 Nasal Cannula 2.0 07/15/17 04:00 93 07/15/17 03:50 92 20 99 Nasal Cannula 2.0 28 07/15/17 03:40 89 20 98 Nasal Cannula 2.0 28 07/15/17 00:00 97.6 66 20 120/81 97 Nasal Cannula 2.0 07/15/17 00:00 92 07/14/17 23:21 90 20 98 Nasal Cannula 2.0 28 07/14/17 23:05 88 20 98 Nasal Cannula 2.0 28 07/14/17 20:31 95 147/84 07/14/17 20:01 95 20 99 Nasal Cannula 3.0 32 07/14/17 20:00 97.7 66 20 147/84 96 Nasal Cannula 3.0 07/14/17 20:00 92 07/14/17 19:50 93 20 99 Nasal Cannula 3.0 32 07/14/17 19:50 Nasal Cannula 3.0 32 07/14/17 19:50 99 Nasal Cannula 3.0 32 07/14/17 16:00 96.0 96 19 121/77 98 Nasal Cannula 3.0 07/14/17 16:00 92 07/14/17 14:50 99 22 99 Nasal Cannula 3.0 32 07/14/17 14:40 99 24 97 Nasal Cannula 3.0 32 Intake and Output 07/14/17 07/15/17 19:00 07:00 Intake Total 250 ml 680 ml Output Total 400 ml Balance 250 ml 280 ml IV Total 250 ml 680 ml Output Urine Total 400 ml # Voids 2 # Bowel Movements 1 3 Laboratory Tests 07/15/17 05:40: Random Vancomycin Level 20.4 Height (Feet): 5 Height (Inches): 8.00 Weight (Pounds): 170 General Appearance: WD/WN, no apparent distress, lethargic EENT: PERRL/EOMI Neck: normal alignment, supple Cardiovascular: normal rate, regular rhythm, no JVD Respiratory/Chest: rhonchi - bilaterally Abdomen: non tender, soft Extremities: non-tender Neurologic: disoriented JEAN-CLAUDE AGUIRRE Jul 15, 2017 12:09
--- NOTE | 2017-07-15 12:50 | General Progress Note ---
Assessment/Plan Problem List: (1) Anemia ICD Codes: D64.9 - Anemia, unspecified SNOMED: 769658333 (2) Renal failure ICD Codes: N19 - Unspecified kidney failure SNOMED: 90826715 (3) Respiratory failure ICD Codes: J96.90 - Respiratory failure, unspecified, unspecified whether with hypoxia or hypercapnia SNOMED: 201103896 (4) Malnutrition of moderate degree ICD Codes: E44.0 - Moderate protein-calorie malnutrition SNOMED: 116569780 Assessment/Plan GTF started fu for residuals HD today fu labs Subjective ROS Limited/Unobtainable: No Allergies: Coded Allergies: No Known Allergies (Unverified , 06/18/17) Objective Last 24 Hour Vital Signs Date Time Temp Pulse Resp B/P (MAP) Pulse Ox O2 Delivery O2 Flow Rate FiO2 07/15/17 11:30 99 20 99 Nasal Cannula 2.0 28 07/15/17 11:23 95 20 100 Nasal Cannula 2.0 28 07/15/17 09:00 102 128/75 07/15/17 08:00 96.7 100 21 136/80 100 Nasal Cannula 2.0 07/15/17 07:40 102 22 100 Nasal Cannula 2.0 28 07/15/17 07:36 99 20 99 Nasal Cannula 2.0 28 07/15/17 07:36 Nasal Cannula 2.0 28 07/15/17 07:35 99 Nasal Cannula 2.0 28 07/15/17 04:00 98.2 96 24 128/75 96 Nasal Cannula 2.0 07/15/17 04:00 93 07/15/17 03:50 92 20 99 Nasal Cannula 2.0 28 07/15/17 03:40 89 20 98 Nasal Cannula 2.0 28 07/15/17 00:00 97.6 66 20 120/81 97 Nasal Cannula 2.0 07/15/17 00:00 92 07/14/17 23:21 90 20 98 Nasal Cannula 2.0 28 07/14/17 23:05 88 20 98 Nasal Cannula 2.0 28 07/14/17 20:31 95 147/84 07/14/17 20:01 95 20 99 Nasal Cannula 3.0 32 07/14/17 20:00 97.7 66 20 147/84 96 Nasal Cannula 3.0 07/14/17 20:00 92 07/14/17 19:50 93 20 99 Nasal Cannula 3.0 32 07/14/17 19:50 Nasal Cannula 3.0 32 07/14/17 19:50 99 Nasal Cannula 3.0 32 07/14/17 16:00 96.0 96 19 121/77 98 Nasal Cannula 3.0 07/14/17 16:00 92 07/14/17 14:50 99 22 99 Nasal Cannula 3.0 32 07/14/17 14:40 99 24 97 Nasal Cannula 3.0 32 Intake and Output 07/14/17 07/15/17 19:00 07:00 Intake Total 250 ml 680 ml Output Total 400 ml Balance 250 ml 280 ml IV Total 250 ml 680 ml Output Urine Total 400 ml # Voids 2 # Bowel Movements 1 3 Laboratory Tests 07/15/17 05:40: Random Vancomycin Level 20.4 Height (Feet): 5 Height (Inches): 8.00 Weight (Pounds): 170 General Appearance: no apparent distress EENT: PERRL/EOMI Neck: supple Cardiovascular: normal rate Respiratory/Chest: decreased breath sounds Abdomen: normal bowel sounds, non tender, soft Extremities: non-tender AZAM PONCE Jul 15, 2017 12:50
[2017-07-15 16:00] VITALS: BP 113/70
[2017-07-15 20:00] VITALS: BP 142/87
[2017-07-15] MEDS: Dyna-Hex 2% Top Sol 2oz TOPIC SCH (20:30)
--- NOTE | 2017-07-15 20:39 | Pulmonology Progress Note ---
Assessment/Plan Assessment/Plan 1. Respiratory failure. 2. Sepsis with shock. 3. Dialysis catheter sepsis 4. Stroke with dementia and right hemiparesis. 5. Diabetes. PEG placed today, tolerated well MRI w osteo foot on HD nebs and suction abx per id DNR/DNI HHN O2 prognosis guarded Subjective ROS Limited/Unobtainable: Yes Allergies: Coded Allergies: No Known Allergies (Unverified , 06/18/17) Subjective awake, nonverbal looks at me when I speak tolerating tf no fever sats stable on o2 no bleeding does not follow commands Objective Last 24 Hour Vital Signs Date Time Temp Pulse Resp B/P (MAP) Pulse Ox O2 Delivery O2 Flow Rate FiO2 07/15/17 20:30 96 118/76 07/15/17 19:26 93 18 100 Nasal Cannula 2.0 28 07/15/17 19:15 Nasal Cannula 2.0 28 07/15/17 19:15 99 Nasal Cannula 2.0 28 07/15/17 19:14 92 18 97 Nasal Cannula 2.0 28 07/15/17 16:05 89 18 100 Nasal Cannula 2.0 28 07/15/17 16:00 90 07/15/17 16:00 97.6 95 20 113/70 93 Nasal Cannula 2.0 07/15/17 15:59 89 18 100 Nasal Cannula 2.0 28 07/15/17 12:00 97.7 90 21 110/81 100 Nasal Cannula 2.0 07/15/17 12:00 92 07/15/17 11:30 99 20 99 Nasal Cannula 2.0 28 07/15/17 11:23 95 20 100 Nasal Cannula 2.0 28 07/15/17 09:00 102 128/75 07/15/17 08:00 96.7 100 21 136/80 100 Nasal Cannula 2.0 07/15/17 08:00 89 07/15/17 07:40 102 22 100 Nasal Cannula 2.0 28 07/15/17 07:36 99 20 99 Nasal Cannula 2.0 28 07/15/17 07:36 Nasal Cannula 2.0 28 07/15/17 07:35 99 Nasal Cannula 2.0 28 07/15/17 04:00 98.2 96 24 128/75 96 Nasal Cannula 2.0 07/15/17 04:00 93 07/15/17 03:50 92 20 99 Nasal Cannula 2.0 28 07/15/17 03:40 89 20 98 Nasal Cannula 2.0 28 07/15/17 00:00 97.6 66 20 120/81 97 Nasal Cannula 2.0 07/15/17 00:00 92 07/14/17 23:21 90 20 98 Nasal Cannula 2.0 28 07/14/17 23:05 88 20 98 Nasal Cannula 2.0 28 Intake and Output 07/14/17 07/15/17 19:00 07:00 Intake Total 250 ml 710 ml Output Total 400 ml Balance 250 ml 310 ml IV Total 250 ml 680 ml Tube Feeding 30 ml Output Urine Total 400 ml # Voids 2 # Bowel Movements 1 3 General Appearance: cachetic HEENT: atraumatic, anicteric Respiratory/Chest: normal breath sounds, rhonchi Cardiovascular: normal rate, regular rhythm Abdomen: soft, non tender, non distended Extremities: no cyanosis Skin: no rash Neurologic/Psychiatric: disoriented Lymphatic: no neck adenopathy Laboratory Tests 07/15/17 05:40: Random Vancomycin Level 20.4 Current Medications Medications (Trade) Dose Ordered Sig/Jaime Route PRN Reason Start Time Stop Time Status Last Admin Dose Admin Acetaminophen (Tylenol) 650 mg Q4H PRN RECTAL Prn Headache/Temp > 101 07/08/17 17:00 07/18/17 20:59 Albuterol Sulfate (Proventil) 2.5 mg Q4HRT HHN 07/13/17 11:00 07/18/17 10:59 07/15/17 19:14 Amoxicillin (Amoxil) 500 mg Q24H GT 07/15/17 22:00 07/22/17 21:59 Aspirin (ASA) 81 mg DAILY NG 07/09/17 09:00 07/19/17 18:59 07/15/17 09:00 Chlorhexidine Gluconate (Kati-Hex 2%) 1 applic Q24H TOPIC 07/08/17 20:00 07/19/17 19:59 07/15/17 20:30 Dextrose (Dextrose 50%) STAT PRN IV Hypoglycemia 07/09/17 13:00 07/19/17 12:59 Epoetin Russ (Procrit (for ESRD on dialysis)) 5,000 units MON-WED-FRI SUBQ 07/10/17 21:00 07/21/17 20:59 07/14/17 20:32 Fluconazole (Diflucan) 100 mg Q24H GT 07/15/17 22:00 08/24/17 21:59 Heparin Sodium (Porcine) (Heparin 5000 units/ml) 5,000 units EVERY 12 HOURS SUBQ 07/08/17 21:00 07/18/17 20:59 07/15/17 20:31 Insulin Aspart (NovoLOG) EVERY 6 HOURS SUBQ 07/08/17 18:00 07/19/17 17:59 07/15/17 18:04 Lansoprazole (Prevacid) 30 mg DAILY GT 07/09/17 09:00 07/19/17 08:59 07/15/17 09:00 Metoprolol Tartrate (Lopressor) 50 mg Q12HR ORAL 07/12/17 09:00 08/11/17 08:59 07/15/17 20:30 Sodium Chloride 550 ml @ 500 mls/hr Q1H6M PRN IV sbp<90 during hd 07/08/17 16:00 07/27/17 11:08 Vancomycin HCl (Vanco rx to dose) 1 ea DAILY PRN MISC Per rx protocol 07/09/17 14:15 08/08/17 14:14 LALO CUETO DO Jul 15, 2017 20:39
[2017-07-16] VITALS: BP 136/99
[2017-07-16] MEDS: Albuterol ud Inhalation HHN SCH ×6 (03:18→23:09)
[2017-07-16 04:00] VITALS: BP 125/81
[2017-07-16] MEDS: NovoLOG Insulin Flexpen SUBQ SCH ×4 (06:34→23:01)
[2017-07-16 08:00] VITALS: BP 142/87
--- NOTE | 2017-07-16 08:48 | General Progress Note ---
Assessment/Plan Problem List: (1) Anemia ICD Codes: D64.9 - Anemia, unspecified SNOMED: 805275353 (2) Renal failure ICD Codes: N19 - Unspecified kidney failure SNOMED: 52236787 (3) Respiratory failure ICD Codes: J96.90 - Respiratory failure, unspecified, unspecified whether with hypoxia or hypercapnia SNOMED: 583097577 (4) Malnutrition of moderate degree ICD Codes: E44.0 - Moderate protein-calorie malnutrition SNOMED: 316825365 Assessment/Plan GTF started fu for residuals fu labs Subjective ROS Limited/Unobtainable: No Allergies: Coded Allergies: No Known Allergies (Unverified , 06/18/17) Objective Last 24 Hour Vital Signs Date Time Temp Pulse Resp B/P (MAP) Pulse Ox O2 Delivery O2 Flow Rate FiO2 07/16/17 07:11 91 20 99 Nasal Cannula 2.0 28 07/16/17 07:01 98 Nasal Cannula 2.0 28 07/16/17 07:01 Nasal Cannula 2.0 28 07/16/17 07:01 91 16 98 Nasal Cannula 2.0 28 07/16/17 04:00 98.6 95 24 125/81 95 Nasal Cannula 2.0 07/16/17 04:00 106 07/16/17 03:26 96 20 100 Nasal Cannula 2.0 28 07/16/17 03:18 95 20 99 Nasal Cannula 2.0 28 07/16/17 00:00 97.6 93 20 136/99 98 Nasal Cannula 2.0 07/15/17 23:43 90 20 100 Nasal Cannula 2.0 28 07/15/17 23:33 90 18 98 Nasal Cannula 2.0 28 07/15/17 20:30 96 118/76 07/15/17 20:00 94 07/15/17 20:00 94 07/15/17 20:00 97.7 72 20 142/87 98 Nasal Cannula 2.0 07/15/17 19:26 93 18 100 Nasal Cannula 2.0 28 07/15/17 19:15 Nasal Cannula 2.0 28 07/15/17 19:15 99 Nasal Cannula 2.0 28 07/15/17 19:14 92 18 97 Nasal Cannula 2.0 28 07/15/17 16:05 89 18 100 Nasal Cannula 2.0 28 07/15/17 16:00 90 07/15/17 16:00 97.6 95 20 113/70 93 Nasal Cannula 2.0 07/15/17 15:59 89 18 100 Nasal Cannula 2.0 28 07/15/17 12:00 97.7 90 21 110/81 100 Nasal Cannula 2.0 07/15/17 12:00 92 07/15/17 11:30 99 20 99 Nasal Cannula 2.0 28 07/15/17 11:23 95 20 100 Nasal Cannula 2.0 28 07/15/17 09:00 102 128/75 Intake and Output 07/15/17 07/16/17 19:00 07:00 Intake Total 460 ml 460 ml Output Total 50 ml Balance 410 ml 460 ml Intake Free Water 100 ml 100 ml Tube Feeding 360 ml 360 ml Output Urine Total 50 ml # Voids 1 60 # Bowel Movements 3 3 Height (Feet): 5 Height (Inches): 8.00 Weight (Pounds): 185 General Appearance: no apparent distress EENT: normal ENT inspection Neck: supple Cardiovascular: normal rate Respiratory/Chest: decreased breath sounds Abdomen: normal bowel sounds, non tender, soft Extremities: non-tender AZAM PONCE Jul 16, 2017 08:47
[2017-07-16] MEDS: Metoprolol 25mg tab ORAL SCH (09:14)
[2017-07-16] MEDS: Aspirin Baby 81mg NG SCH (09:14)
[2017-07-16] MEDS: Heparin 5000 units/ml inj SUBQ SCH ×2 (09:15→20:04)
--- NOTE | 2017-07-16 10:50 | General Progress Note ---
Assessment/Plan Problem List: (1) Catheter-related bloodstream infection ICD Codes: T80.211A - Bloodstream infection due to central venous catheter, initial encounter SNOMED: 762809136 (2) Renal failure ICD Codes: N19 - Unspecified kidney failure SNOMED: 81597394 (3) Septic shock ICD Codes: A41.9 - Sepsis, unspecified organism; R65.21 - Severe sepsis with septic shock SNOMED: 98194756 (4) Respiratory failure ICD Codes: J96.90 - Respiratory failure, unspecified, unspecified whether with hypoxia or hypercapnia SNOMED: 071372724 (5) Malnutrition of moderate degree ICD Codes: E44.0 - Moderate protein-calorie malnutrition SNOMED: 671724281 (6) End-stage renal disease ICD Codes: N18.6 - End stage renal disease SNOMED: 79285164 (7) Healthcare-associated pneumonia ICD Codes: J18.9 - Pneumonia, unspecified organism SNOMED: 529348923 Status: stable, progressing Assessment/Plan cont iv abx per id HD as tolerated resp rx feeds per gi check abg dvt/stress ulcer prophyalxi monitor h/h transfuse as needed epo/iron guarded but improving dnr Subjective ROS Limited/Unobtainable: Yes Constitutional: Reports: malaise, weakness HEENT: Reports: no symptoms Cardiovascular: Reports: no symptoms Respiratory: Reports: cough Gastrointestinal/Abdominal: Reports: difficulty swallowing Genitourinary: Reports: no symptoms Neurologic/Psychiatric: Reports: pre-existing deficit Endocrine: Reports: no symptoms Hematologic/Lymphatic: Reports: no symptoms Allergies: Coded Allergies: No Known Allergies (Unverified , 06/18/17) All Systems: reviewed and negative except above Subjective no events. s/p uncomplicated gt placement. tolerating feeds. remains poorly responsive at baseline. Objective Last 24 Hour Vital Signs Date Time Temp Pulse Resp B/P (MAP) Pulse Ox O2 Delivery O2 Flow Rate FiO2 07/16/17 09:14 119 142/87 07/16/17 08:00 120 07/16/17 08:00 98.6 119 20 142/87 100 Nasal Cannula 2.0 07/16/17 07:11 91 20 99 Nasal Cannula 2.0 28 07/16/17 07:01 98 Nasal Cannula 2.0 28 07/16/17 07:01 Nasal Cannula 2.0 28 07/16/17 07:01 91 16 98 Nasal Cannula 2.0 28 07/16/17 04:00 98.6 95 24 125/81 95 Nasal Cannula 2.0 07/16/17 04:00 106 07/16/17 03:26 96 20 100 Nasal Cannula 2.0 28 07/16/17 03:18 95 20 99 Nasal Cannula 2.0 28 07/16/17 00:00 97.6 93 20 136/99 98 Nasal Cannula 2.0 07/15/17 23:43 90 20 100 Nasal Cannula 2.0 28 07/15/17 23:33 90 18 98 Nasal Cannula 2.0 28 07/15/17 20:30 96 118/76 07/15/17 20:00 94 07/15/17 20:00 94 07/15/17 20:00 97.7 72 20 142/87 98 Nasal Cannula 2.0 07/15/17 19:26 93 18 100 Nasal Cannula 2.0 28 07/15/17 19:15 Nasal Cannula 2.0 28 07/15/17 19:15 99 Nasal Cannula 2.0 28 07/15/17 19:14 92 18 97 Nasal Cannula 2.0 28 07/15/17 16:05 89 18 100 Nasal Cannula 2.0 28 07/15/17 16:00 90 07/15/17 16:00 97.6 95 20 113/70 93 Nasal Cannula 2.0 07/15/17 15:59 89 18 100 Nasal Cannula 2.0 28 07/15/17 12:00 97.7 90 21 110/81 100 Nasal Cannula 2.0 07/15/17 12:00 92 07/15/17 11:30 99 20 99 Nasal Cannula 2.0 28 07/15/17 11:23 95 20 100 Nasal Cannula 2.0 28 Intake and Output 07/15/17 07/16/17 19:00 07:00 Intake Total 460 ml 460 ml Output Total 50 ml Balance 410 ml 460 ml Intake Free Water 100 ml 100 ml Tube Feeding 360 ml 360 ml Output Urine Total 50 ml # Voids 1 60 # Bowel Movements 3 3 Height (Feet): 5 Height (Inches): 8.00 Weight (Pounds): 185 Objective General Appearance: WD/WN, alert, confused Neck: supple Cardiovascular: regular rhythm Respiratory/Chest: chest wall non-tender, few rhonchi, normal breath sounds, no respiratory distress Abdomen: normal bowel sounds, non tender, soft, no organomegaly, no mass Edema: no edema noted Arm (L), no edema noted Arm (R), no edema noted Leg (L), no edema noted Leg (R), no edema noted Pedal (L), no edema noted Pedal (R), no edema noted Generalized Neurologic: more alert, aphasia KEENA BRANDT Jul 16, 2017 10:50
--- NOTE | 2017-07-16 11:07 | Pulmonology Progress Note ---
Assessment/Plan Assessment/Plan 1. Respiratory failure. 2. Sepsis with shock. 3. Dialysis catheter sepsis 4. Stroke with dementia and right hemiparesis. 5. Diabetes. TF per peg on HD nebs and suction abx per id DNR/DNI HHN O2 prognosis guarded Subjective ROS Limited/Unobtainable: Yes Allergies: Coded Allergies: No Known Allergies (Unverified , 06/18/17) Subjective awake, remains nonverbal tolerating tf no fever sats stable on o2 no bleeding does not follow commands Objective Last 24 Hour Vital Signs Date Time Temp Pulse Resp B/P (MAP) Pulse Ox O2 Delivery O2 Flow Rate FiO2 07/16/17 10:50 94 20 99 Nasal Cannula 2.0 28 07/16/17 10:42 93 16 99 Nasal Cannula 2.0 28 07/16/17 09:14 119 142/87 07/16/17 08:00 120 07/16/17 08:00 98.6 119 20 142/87 100 Nasal Cannula 2.0 07/16/17 07:11 91 20 99 Nasal Cannula 2.0 28 07/16/17 07:01 98 Nasal Cannula 2.0 28 07/16/17 07:01 Nasal Cannula 2.0 28 07/16/17 07:01 91 16 98 Nasal Cannula 2.0 28 07/16/17 04:00 98.6 95 24 125/81 95 Nasal Cannula 2.0 07/16/17 04:00 106 07/16/17 03:26 96 20 100 Nasal Cannula 2.0 28 07/16/17 03:18 95 20 99 Nasal Cannula 2.0 28 07/16/17 00:00 97.6 93 20 136/99 98 Nasal Cannula 2.0 07/15/17 23:43 90 20 100 Nasal Cannula 2.0 28 07/15/17 23:33 90 18 98 Nasal Cannula 2.0 28 07/15/17 20:30 96 118/76 07/15/17 20:00 94 07/15/17 20:00 94 07/15/17 20:00 97.7 72 20 142/87 98 Nasal Cannula 2.0 07/15/17 19:26 93 18 100 Nasal Cannula 2.0 28 07/15/17 19:15 Nasal Cannula 2.0 28 07/15/17 19:15 99 Nasal Cannula 2.0 28 07/15/17 19:14 92 18 97 Nasal Cannula 2.0 28 07/15/17 16:05 89 18 100 Nasal Cannula 2.0 28 07/15/17 16:00 90 07/15/17 16:00 97.6 95 20 113/70 93 Nasal Cannula 2.0 07/15/17 15:59 89 18 100 Nasal Cannula 2.0 28 07/15/17 12:00 97.7 90 21 110/81 100 Nasal Cannula 2.0 07/15/17 12:00 92 07/15/17 11:30 99 20 99 Nasal Cannula 2.0 28 07/15/17 11:23 95 20 100 Nasal Cannula 2.0 28 Intake and Output 07/15/17 07/16/17 19:00 07:00 Intake Total 460 ml 460 ml Output Total 50 ml Balance 410 ml 460 ml Intake Free Water 100 ml 100 ml Tube Feeding 360 ml 360 ml Output Urine Total 50 ml # Voids 1 60 # Bowel Movements 3 3 General Appearance: cachetic Respiratory/Chest: rhonchi Cardiovascular: normal rate, regular rhythm, murmur systolic, edema Abdomen: soft, non tender, no organomegaly Neurologic/Psychiatric: disoriented Current Medications Medications (Trade) Dose Ordered Sig/Jaime Route PRN Reason Start Time Stop Time Status Last Admin Dose Admin Acetaminophen (Tylenol) 650 mg Q4H PRN RECTAL Prn Headache/Temp > 101 07/08/17 17:00 07/18/17 20:59 Albuterol Sulfate (Proventil) 2.5 mg Q4HRT HHN 07/13/17 11:00 07/18/17 10:59 07/16/17 10:43 Amoxicillin (Amoxil) 500 mg Q24H GT 07/15/17 22:00 07/22/17 21:59 07/15/17 21:09 Aspirin (ASA) 81 mg DAILY NG 07/09/17 09:00 07/19/17 18:59 07/16/17 09:14 Chlorhexidine Gluconate (Kati-Hex 2%) 1 applic Q24H TOPIC 07/08/17 20:00 07/19/17 19:59 07/15/17 20:30 Dextrose (Dextrose 50%) STAT PRN IV Hypoglycemia 07/09/17 13:00 07/19/17 12:59 Epoetin Russ (Procrit (for ESRD on dialysis)) 5,000 units MON-WED-FRI SUBQ 07/10/17 21:00 07/21/17 20:59 07/14/17 20:32 Fluconazole (Diflucan) 100 mg Q24H GT 07/15/17 22:00 08/24/17 21:59 07/15/17 21:09 Heparin Sodium (Porcine) (Heparin 5000 units/ml) 5,000 units EVERY 12 HOURS SUBQ 07/08/17 21:00 07/18/17 20:59 07/16/17 09:15 Insulin Aspart (NovoLOG) EVERY 6 HOURS SUBQ 07/08/17 18:00 07/19/17 17:59 07/16/17 06:34 Lansoprazole (Prevacid) 30 mg DAILY GT 07/09/17 09:00 07/19/17 08:59 07/16/17 09:13 Metoprolol Tartrate (Lopressor) 50 mg Q12HR ORAL 07/12/17 09:00 08/11/17 08:59 07/16/17 09:14 Sodium Chloride 550 ml @ 500 mls/hr Q1H6M PRN IV sbp<90 during hd 07/08/17 16:00 07/27/17 11:08 Vancomycin HCl (Vanco rx to dose) 1 ea DAILY PRN MISC Per rx protocol 07/09/17 14:15 08/08/17 14:14 Current Medications Medications (Trade) Dose Ordered Sig/Jaime Route PRN Reason Start Time Stop Time Status Last Admin Dose Admin Acetaminophen (Tylenol) 650 mg Q4H PRN RECTAL Prn Headache/Temp > 101 07/08/17 17:00 07/18/17 20:59 Albuterol Sulfate (Proventil) 2.5 mg Q4HRT HHN 07/13/17 11:00 07/18/17 10:59 07/16/17 10:43 Amoxicillin (Amoxil) 500 mg Q24H GT 07/15/17 22:00 07/22/17 21:59 07/15/17 21:09 Aspirin (ASA) 81 mg DAILY NG 07/09/17 09:00 07/19/17 18:59 07/16/17 09:14 Chlorhexidine Gluconate (Kati-Hex 2%) 1 applic Q24H TOPIC 07/08/17 20:00 07/19/17 19:59 07/15/17 20:30 Dextrose (Dextrose 50%) STAT PRN IV Hypoglycemia 07/09/17 13:00 07/19/17 12:59 Epoetin Russ (Procrit (for ESRD on dialysis)) 5,000 units MON-MON-MON SUBQ 07/10/17 21:00 07/21/17 20:59 07/14/17 20:32 Fluconazole (Diflucan) 100 mg Q24H GT 07/15/17 22:00 08/24/17 21:59 07/15/17 21:09 Heparin Sodium (Porcine) (Heparin 5000 units/ml) 5,000 units EVERY 12 HOURS SUBQ 07/08/17 21:00 07/18/17 20:59 07/16/17 09:15 Insulin Aspart (NovoLOG) EVERY 6 HOURS SUBQ 07/08/17 18:00 07/19/17 17:59 07/16/17 06:34 Lansoprazole (Prevacid) 30 mg DAILY GT 07/09/17 09:00 07/19/17 08:59 07/16/17 09:13 Metoprolol Tartrate (Lopressor) 50 mg Q12HR ORAL 07/12/17 09:00 08/11/17 08:59 07/16/17 09:14 Sodium Chloride 550 ml @ 500 mls/hr Q1H6M PRN IV sbp<90 during hd 07/08/17 16:00 07/27/17 11:08 Vancomycin HCl (Vanco rx to dose) 1 ea DAILY PRN MISC Per rx protocol 07/09/17 14:15 08/08/17 14:14 LALO CUETO DO Jul 16, 2017 11:07
[2017-07-16 12:00] VITALS: BP 114/76
--- NOTE | 2017-07-16 12:36 | Infectious Diseases Prog Note ---
Assessment/Plan Assessment/Plan A 1. MRSA sepsis s/p catheter removal 2. septic shock resolved 3. respiratory failure 4. renal failure, ESRD 5. staph aureus , Enterobacter pneumonia 6. osteomyelitis of left ankle P 1. discontinue vancomycin iv, continue Amoxicillin Subjective ROS Limited/Unobtainable: Yes Allergies: Coded Allergies: No Known Allergies (Unverified , 06/18/17) Objective Vital Signs Last 24 Hour Vital Signs Date Time Temp Pulse Resp B/P (MAP) Pulse Ox O2 Delivery O2 Flow Rate FiO2 07/16/17 12:00 99.0 97 21 114/76 100 Nasal Cannula 2.0 07/16/17 10:50 94 20 99 Nasal Cannula 2.0 28 07/16/17 10:42 93 16 99 Nasal Cannula 2.0 28 07/16/17 09:14 119 142/87 07/16/17 08:00 120 07/16/17 08:00 98.6 119 20 142/87 100 Nasal Cannula 2.0 07/16/17 07:11 91 20 99 Nasal Cannula 2.0 28 07/16/17 07:01 98 Nasal Cannula 2.0 28 07/16/17 07:01 Nasal Cannula 2.0 28 07/16/17 07:01 91 16 98 Nasal Cannula 2.0 28 07/16/17 04:00 98.6 95 24 125/81 95 Nasal Cannula 2.0 07/16/17 04:00 106 07/16/17 03:26 96 20 100 Nasal Cannula 2.0 28 07/16/17 03:18 95 20 99 Nasal Cannula 2.0 28 07/16/17 00:00 97.6 93 20 136/99 98 Nasal Cannula 2.0 07/15/17 23:43 90 20 100 Nasal Cannula 2.0 28 07/15/17 23:33 90 18 98 Nasal Cannula 2.0 28 07/15/17 20:30 96 118/76 07/15/17 20:00 94 07/15/17 20:00 94 07/15/17 20:00 97.7 72 20 142/87 98 Nasal Cannula 2.0 07/15/17 19:26 93 18 100 Nasal Cannula 2.0 28 07/15/17 19:15 Nasal Cannula 2.0 28 07/15/17 19:15 99 Nasal Cannula 2.0 28 07/15/17 19:14 92 18 97 Nasal Cannula 2.0 28 07/15/17 16:05 89 18 100 Nasal Cannula 2.0 28 07/15/17 16:00 90 07/15/17 16:00 97.6 95 20 113/70 93 Nasal Cannula 2.0 07/15/17 15:59 89 18 100 Nasal Cannula 2.0 28 Height (Feet): 5 Height (Inches): 8.00 Weight (Pounds): 185 General Appearance: no acute distress HEENT: mucous membranes moist Respiratory/Chest: lungs clear Cardiovascular: normal rate Abdomen: soft, non tender, other - GT feeding Extremities: no edema Skin: ulcers - left lateral foot Neurologic/Psychiatric: aphasia, other - opens eyes Laboratory Tests Test 07/16/17 11:08 Arterial Blood pH 7.422 (7.350-7.450) Arterial Blood Partial Pressure CO2 33.8 mmHg (35.0-45.0) L Arterial Blood Partial Pressure O2 83.2 mmHg (75.0-100.0) Arterial Blood HCO3 21.5 mmol/L (22.0-26.0) L Arterial Blood Oxygen Saturation 96.1 % (92.0-98.0) Arterial Blood Base Excess -2.4 Jones Test Positive Current Medications Medications (Trade) Dose Ordered Sig/Jaime Route PRN Reason Start Time Stop Time Status Last Admin Dose Admin Acetaminophen (Tylenol) 650 mg Q4H PRN RECTAL Prn Headache/Temp > 101 07/08/17 17:00 07/18/17 20:59 Albuterol Sulfate (Proventil) 2.5 mg Q4HRT HHN 07/13/17 11:00 07/18/17 10:59 07/16/17 10:43 Amoxicillin (Amoxil) 500 mg Q24H GT 07/15/17 22:00 08/24/17 23:59 07/15/17 21:09 Aspirin (ASA) 81 mg DAILY NG 07/09/17 09:00 07/19/17 18:59 07/16/17 09:14 Chlorhexidine Gluconate (Kati-Hex 2%) 1 applic Q24H TOPIC 07/08/17 20:00 07/19/17 19:59 07/15/17 20:30 Dextrose (Dextrose 50%) STAT PRN IV Hypoglycemia 07/09/17 13:00 07/19/17 12:59 Epoetin Russ (Procrit (for ESRD on dialysis)) 5,000 units MON-MON-MON SUBQ 07/10/17 21:00 07/21/17 20:59 07/14/17 20:32 Fluconazole (Diflucan) 100 mg Q24H GT 07/15/17 22:00 08/24/17 21:59 07/15/17 21:09 Heparin Sodium (Porcine) (Heparin 5000 units/ml) 5,000 units EVERY 12 HOURS SUBQ 07/08/17 21:00 07/18/17 20:59 07/16/17 09:15 Insulin Aspart (NovoLOG) EVERY 6 HOURS SUBQ 07/08/17 18:00 07/19/17 17:59 07/16/17 06:34 Lansoprazole (Prevacid) 30 mg DAILY GT 07/09/17 09:00 07/19/17 08:59 07/16/17 09:13 Metoprolol Tartrate (Lopressor) 50 mg Q12HR ORAL 07/16/17 21:00 08/15/17 20:59 Sodium Chloride 550 ml @ 500 mls/hr Q1H6M PRN IV sbp<90 during hd 07/08/17 16:00 07/27/17 11:08 Vancomycin HCl (Vanco rx to dose) 1 ea DAILY PRN MISC Per rx protocol 07/09/17 14:15 08/08/17 14:14 ZAIRA ROBLES Jul 16, 2017 12:36
--- NOTE | 2017-07-16 15:27 | General Progress Note ---
Assessment/Plan Assessment/Plan 1) Healthcare-associated pneumonia (2) Malnutrition of moderate degree (3) End-stage renal disease (4) Respiratory failure (5) Septic shock Plan: HD today Subjective Allergies: Coded Allergies: No Known Allergies (Unverified , 06/18/17) Subjective He is doing status quo, non verbal, HD was postponed for today Objective Last 24 Hour Vital Signs Date Time Temp Pulse Resp B/P (MAP) Pulse Ox O2 Delivery O2 Flow Rate FiO2 07/16/17 14:38 92 16 98 Nasal Cannula 2.0 28 07/16/17 12:00 99.0 97 21 114/76 100 Nasal Cannula 2.0 07/16/17 12:00 96 07/16/17 10:50 94 20 99 Nasal Cannula 2.0 28 07/16/17 10:42 93 16 99 Nasal Cannula 2.0 28 07/16/17 09:14 119 142/87 07/16/17 08:00 120 07/16/17 08:00 98.6 119 20 142/87 100 Nasal Cannula 2.0 07/16/17 07:11 91 20 99 Nasal Cannula 2.0 28 07/16/17 07:01 98 Nasal Cannula 2.0 28 07/16/17 07:01 Nasal Cannula 2.0 28 07/16/17 07:01 91 16 98 Nasal Cannula 2.0 28 07/16/17 04:00 98.6 95 24 125/81 95 Nasal Cannula 2.0 07/16/17 04:00 106 07/16/17 03:26 96 20 100 Nasal Cannula 2.0 28 07/16/17 03:18 95 20 99 Nasal Cannula 2.0 28 07/16/17 00:00 97.6 93 20 136/99 98 Nasal Cannula 2.0 07/15/17 23:43 90 20 100 Nasal Cannula 2.0 28 07/15/17 23:33 90 18 98 Nasal Cannula 2.0 28 07/15/17 20:30 96 118/76 07/15/17 20:00 94 07/15/17 20:00 94 07/15/17 20:00 97.7 72 20 142/87 98 Nasal Cannula 2.0 07/15/17 19:26 93 18 100 Nasal Cannula 2.0 28 07/15/17 19:15 Nasal Cannula 2.0 28 1/20/18 19:15 99 Nasal Cannula 2.0 28 07/15/17 19:14 92 18 97 Nasal Cannula 2.0 28 07/15/17 16:05 89 18 100 Nasal Cannula 2.0 28 07/15/17 16:00 90 07/15/17 16:00 97.6 95 20 113/70 93 Nasal Cannula 2.0 07/15/17 15:59 89 18 100 Nasal Cannula 2.0 28 Intake and Output 07/15/17 07/16/17 19:00 07:00 Intake Total 460 ml 460 ml Output Total 50 ml Balance 410 ml 460 ml Intake Free Water 100 ml 100 ml Tube Feeding 360 ml 360 ml Output Urine Total 50 ml # Voids 1 60 # Bowel Movements 3 3 Laboratory Tests 07/16/17 11:08: Arterial Blood pH 7.422, Arterial Blood Partial Pressure CO2 33.8L, Arterial Blood Partial Pressure O2 83.2, Arterial Blood HCO3 21.5L, Arterial Blood Oxygen Saturation 96.1, Arterial Blood Base Excess -2.4, Jones Test Positive Height (Feet): 5 Height (Inches): 8.00 Weight (Pounds): 185 General Appearance: WD/WN Neck: non-tender, normal alignment, supple Cardiovascular: normal rate, no JVD Respiratory/Chest: lungs clear Abdomen: non tender, soft Pelvis: normal external exam, normal rectal exam Edema: mild edema Neurologic: disoriented JEAN-CLAUDE AGUIRRE Jul 16, 2017 15:26
[2017-07-16 16:00] VITALS: BP 112/64
[2017-07-16 20:00] VITALS: BP 125/64
[2017-07-16] MEDS: Dyna-Hex 2% Top Sol 2oz TOPIC SCH (20:02)
[2017-07-16] MEDS: Metoprolol Tartrate 50mg tab ORAL SCH (20:03)
[2017-07-16] MEDS: Fluconazole 100mg tab GT SCH (21:25)
[2017-07-17] VITALS: BP 123/77
[2017-07-17] MEDS: Albuterol ud Inhalation HHN SCH ×6 (03:36→23:23)
[2017-07-17 04:00] VITALS: BP 110/66
--- NOTE | 2017-07-17 04:15 | Progress Note ---
DATE: 07/16/2017 CARDIOLOGY PROGRESS NOTE SUBJECTIVE: The patient is status post PEG. He is tolerating feedings. He is off the ventilator. There is no apparent respiratory distress. OBJECTIVE: VITAL SIGNS: Blood pressure 142/87, pulse 119, respiratory rate 20, afebrile. Monitor, sinus and sinus tachycardia. LUNGS: Coarse breath sounds. Scattered rhonchi. HEART: Regular rhythm. Rapid rate. Normal S1, S2. ABDOMEN: Soft. G-tube intact. EXTREMITIES: No edema. The left ankle has dressing in place. IMPRESSION: 1. Possible osteomyelitis. 2. Sepsis. 3. Status post respiratory failure. 4. Status post percutaneous endoscopic gastrostomy for dysphagia. 5. Status post acute myocardial infarction. 6. Acute and chronic diastolic congestive heart failure. 7. End-stage renal disease, on hemodialysis. PLAN: 1. Antimicrobials. 2. Respiratory hygiene. 3. Nutrition by feeding tube. 4. Titrate beta-lory. 5. Hemodialysis with ultrafiltration. 6. Discharge planning. 7. DNR/DNI. Lili Mccarty JOB#: [id number] CC:
[2017-07-17] MEDS: NovoLOG Insulin Flexpen SUBQ SCH ×3 (05:21→17:41)
[2017-07-17 08:00] VITALS: BP 116/65
[2017-07-17] MEDS: Aspirin Baby 81mg NG SCH (08:40)
[2017-07-17] MEDS: Metoprolol Tartrate 50mg tab ORAL SCH ×2 (08:40→20:57)
[2017-07-17] MEDS: Heparin 5000 units/ml inj SUBQ SCH ×2 (08:41→21:00)
[2017-07-17 12:00] VITALS: BP 132/68
--- NOTE | 2017-07-17 13:09 | Pulmonology Progress Note ---
Assessment/Plan Assessment/Plan 1. Respiratory failure, resolved 2. Sepsis with shock, resolved 3. Dialysis catheter sepsis 4. Stroke with dementia and right hemiparesis. 5. Diabetes. PEG placed, tolerated feedings well MRI w osteo foot on HD nebs and suction abx per id DNR/DNI HHN O2 prognosis guarded disc w RN, Dr Kraft DC planning Subjective ROS Limited/Unobtainable: Yes Allergies: Coded Allergies: No Known Allergies (Unverified , 06/18/17) Objective Last 24 Hour Vital Signs Date Time Temp Pulse Resp B/P (MAP) Pulse Ox O2 Delivery O2 Flow Rate FiO2 07/17/17 12:00 98.1 103 22 132/68 100 Nasal Cannula 2.0 07/17/17 11:50 79 20 100 Nasal Cannula 2.0 28 07/17/17 11:40 75 20 100 Nasal Cannula 2.0 28 07/17/17 08:40 106 116/65 07/17/17 08:00 97.9 106 22 116/65 98 Nasal Cannula 2.0 07/17/17 08:00 105 07/17/17 07:29 99 22 100 Nasal Cannula 2.0 28 07/17/17 07:19 99 22 99 Nasal Cannula 2.0 28 07/17/17 07:17 Nasal Cannula 2.0 28 07/17/17 07:16 99 Nasal Cannula 2.0 28 07/17/17 04:00 98.2 109 24 110/66 100 Nasal Cannula 2.0 07/17/17 04:00 105 07/17/17 03:46 94 20 99 Nasal Cannula 2.0 28 07/17/17 03:36 88 18 98 Nasal Cannula 2.0 28 07/17/17 01:00 Nasal Cannula 2.0 07/17/17 00:00 92 07/17/17 00:00 97.7 98 22 123/77 100 Nasal Cannula 2.0 07/16/17 23:21 96 20 99 Nasal Cannula 2.0 28 07/16/17 23:10 92 18 97 Nasal Cannula 2.0 28 07/16/17 22:00 Nasal Cannula 2.0 07/16/17 20:03 114 125/68 07/16/17 20:00 102 07/16/17 20:00 98.3 114 22 125/64 98 Nasal Cannula 2.0 07/16/17 19:25 93 20 99 Nasal Cannula 2.0 28 07/16/17 19:16 Nasal Cannula 2.0 28 07/16/17 19:16 97 Nasal Cannula 2.0 28 07/16/17 19:15 97 18 97 Nasal Cannula 2.0 28 07/16/17 16:00 99 07/16/17 16:00 98.2 88 20 112/64 96 Nasal Cannula 2.0 07/16/17 14:48 91 20 98 Nasal Cannula 2.0 28 07/16/17 14:38 92 16 98 Nasal Cannula 2.0 28 Intake and Output 07/16/17 07/17/17 19:00 07:00 Intake Total 510 ml 380 ml Output Total 100 ml Balance 410 ml 380 ml Intake Free Water 150 ml 50 ml Tube Feeding 360 ml 330 ml Output Urine Total 100 ml # Bowel Movements 4 5 General Appearance: no acute distress HEENT: normocephalic Respiratory/Chest: rhonchi Cardiovascular: normal rate Current Medications Medications (Trade) Dose Ordered Sig/Jaime Route PRN Reason Start Time Stop Time Status Last Admin Dose Admin Acetaminophen (Tylenol) 650 mg Q4H PRN RECTAL Prn Headache/Temp > 101 07/08/17 17:00 07/18/17 20:59 Albuterol Sulfate (Proventil) 2.5 mg Q4HRT HHN 07/13/17 11:00 07/18/17 10:59 07/17/17 11:40 Amoxicillin (Amoxil) 500 mg Q24H GT 07/15/17 22:00 08/24/17 23:59 07/16/17 21:25 Aspirin (ASA) 81 mg DAILY NG 07/09/17 09:00 07/19/17 18:59 07/17/17 08:40 Chlorhexidine Gluconate (Kati-Hex 2%) 1 applic Q24H TOPIC 07/08/17 20:00 07/19/17 19:59 07/16/17 20:02 Dextrose (Dextrose 50%) STAT PRN IV Hypoglycemia 07/09/17 13:00 07/19/17 12:59 Epoetin Russ (Procrit (for ESRD on dialysis)) 5,000 units MON-WED-FRI SUBQ 07/10/17 21:00 07/21/17 20:59 07/14/17 20:32 Fluconazole (Diflucan) 100 mg Q24H GT 07/15/17 22:00 08/24/17 21:59 07/16/17 21:25 Heparin Sodium (Porcine) (Heparin 5000 units/ml) 5,000 units EVERY 12 HOURS SUBQ 07/08/17 21:00 07/18/17 20:59 07/17/17 08:41 Insulin Aspart (NovoLOG) EVERY 6 HOURS SUBQ 07/08/17 18:00 07/19/17 17:59 07/17/17 11:52 Lansoprazole (Prevacid) 30 mg DAILY GT 07/09/17 09:00 07/19/17 08:59 07/17/17 08:40 Metoprolol Tartrate (Lopressor) 50 mg Q12HR ORAL 07/16/17 21:00 08/15/17 20:59 07/17/17 08:40 Sodium Chloride 550 ml @ 500 mls/hr Q1H6M PRN IV sbp<90 during hd 07/08/17 16:00 07/27/17 11:08 PEG MARTINEZ Jul 17, 2017 13:09
--- NOTE | 2017-07-17 15:26 | General Progress Note ---
Assessment/Plan Problem List: (1) Catheter-related bloodstream infection ICD Codes: T80.211A - Bloodstream infection due to central venous catheter, initial encounter SNOMED: 294139048 (2) Renal failure ICD Codes: N19 - Unspecified kidney failure SNOMED: 43101209 (3) Septic shock ICD Codes: A41.9 - Sepsis, unspecified organism; R65.21 - Severe sepsis with septic shock SNOMED: 84638880 (4) Respiratory failure ICD Codes: J96.90 - Respiratory failure, unspecified, unspecified whether with hypoxia or hypercapnia SNOMED: 037847572 (5) Malnutrition of moderate degree ICD Codes: E44.0 - Moderate protein-calorie malnutrition SNOMED: 783173037 (6) End-stage renal disease ICD Codes: N18.6 - End stage renal disease SNOMED: 19327072 (7) Healthcare-associated pneumonia ICD Codes: J18.9 - Pneumonia, unspecified organism SNOMED: 058197533 Status: stable, progressing Assessment/Plan cont iv abx per id HD as tolerated resp rx feeds per gi dvt/stress ulcer prophyalxi monitor h/h transfuse as needed epo/iron guarded but improving dnr Subjective ROS Limited/Unobtainable: Yes Constitutional: Reports: malaise, weakness HEENT: Reports: no symptoms Cardiovascular: Reports: no symptoms Respiratory: Reports: cough Gastrointestinal/Abdominal: Reports: difficulty swallowing Genitourinary: Reports: no symptoms Neurologic/Psychiatric: Reports: pre-existing deficit Endocrine: Reports: no symptoms Hematologic/Lymphatic: Reports: no symptoms Allergies: Coded Allergies: No Known Allergies (Unverified , 06/18/17) All Systems: reviewed and negative except above Subjective no events. s/p uncomplicated gt placement. tolerating feeds. remains poorly responsive at baseline. minimal congestion. tolerating feeds Objective Last 24 Hour Vital Signs Date Time Temp Pulse Resp B/P (MAP) Pulse Ox O2 Delivery O2 Flow Rate FiO2 07/17/17 12:00 101 07/17/17 12:00 98.1 103 22 132/68 100 Nasal Cannula 2.0 07/17/17 11:50 79 20 100 Nasal Cannula 2.0 28 07/17/17 11:40 75 20 100 Nasal Cannula 2.0 28 07/17/17 08:40 106 116/65 07/17/17 08:00 97.9 106 22 116/65 98 Nasal Cannula 2.0 07/17/17 08:00 105 07/17/17 07:29 99 22 100 Nasal Cannula 2.0 28 07/17/17 07:19 99 22 99 Nasal Cannula 2.0 28 07/17/17 07:17 Nasal Cannula 2.0 28 07/17/17 07:16 99 Nasal Cannula 2.0 28 07/17/17 04:00 98.2 109 24 110/66 100 Nasal Cannula 2.0 07/17/17 04:00 105 07/17/17 03:46 94 20 99 Nasal Cannula 2.0 28 07/17/17 03:36 88 18 98 Nasal Cannula 2.0 28 07/17/17 01:00 Nasal Cannula 2.0 07/17/17 00:00 92 07/17/17 00:00 97.7 98 22 123/77 100 Nasal Cannula 2.0 07/16/17 23:21 96 20 99 Nasal Cannula 2.0 28 07/16/17 23:10 92 18 97 Nasal Cannula 2.0 28 07/16/17 22:00 Nasal Cannula 2.0 07/16/17 20:03 114 125/68 07/16/17 20:00 102 07/16/17 20:00 98.3 114 22 125/64 98 Nasal Cannula 2.0 07/16/17 19:25 93 20 99 Nasal Cannula 2.0 28 07/16/17 19:16 Nasal Cannula 2.0 28 07/16/17 19:16 97 Nasal Cannula 2.0 28 07/16/17 19:15 97 18 97 Nasal Cannula 2.0 28 07/16/17 16:00 99 07/16/17 16:00 98.2 88 20 112/64 96 Nasal Cannula 2.0 Intake and Output 07/16/17 07/17/17 19:00 07:00 Intake Total 510 ml 380 ml Output Total 100 ml Balance 410 ml 380 ml Intake Free Water 150 ml 50 ml Tube Feeding 360 ml 330 ml Output Urine Total 100 ml # Bowel Movements 4 5 Height (Feet): 5 Height (Inches): 8.00 Weight (Pounds): 180 Objective General Appearance: WD/WN, alert, confused Neck: supple Cardiovascular: regular rhythm Respiratory/Chest: chest wall non-tender, few rhonchi, normal breath sounds, no respiratory distress Abdomen: normal bowel sounds, non tender, soft, no organomegaly, no mass Edema: no edema noted Arm (L), no edema noted Arm (R), no edema noted Leg (L), no edema noted Leg (R), no edema noted Pedal (L), no edema noted Pedal (R), no edema noted Generalized Neurologic: more alert, aphasia KEENA BRANDT Jul 17, 2017 15:26
[2017-07-17 16:00] VITALS: BP 106/62
[2017-07-17] MEDS ORDERED: NS 275ml ONE (17:15)
[2017-07-17] MEDS ORDERED: D5 1/2NS 1000ml IV ONE (17:15)
[2017-07-17] MEDS ORDERED: NS 500ML ONE ×2 (17:15→18:56)
--- NOTE | 2017-07-17 18:36 | Podiatric Progress Note ---
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 3) Abnormal mobility 4) DM 5) ESRD P/ 1) Chart reviewed 2) Cont q2h turning 3) Cont heel protectors bilateral 4) Cont wound care for left ankle wound 5) MRI reviewed - Abx per ID 6) Will follow - prognosis poor 2/2 comorbidities Subjective Allergies: Coded Allergies: No Known Allergies (Unverified , 06/18/17) Objective Exam Last 24 Hour Vital Signs Date Time Temp Pulse Resp B/P (MAP) Pulse Ox O2 Delivery O2 Flow Rate FiO2 07/17/17 16:00 98.2 102 24 106/62 98 Nasal Cannula 2.0 07/17/17 16:00 95 07/17/17 15:59 85 22 100 Nasal Cannula 2.0 28 07/17/17 15:50 87 22 99 Nasal Cannula 2.0 28 07/17/17 12:00 101 07/17/17 12:00 98.1 103 22 132/68 100 Nasal Cannula 2.0 07/17/17 11:50 79 20 100 Nasal Cannula 2.0 28 07/17/17 11:40 75 20 100 Nasal Cannula 2.0 28 07/17/17 08:40 106 116/65 07/17/17 08:00 97.9 106 22 116/65 98 Nasal Cannula 2.0 07/17/17 08:00 105 07/17/17 07:29 99 22 100 Nasal Cannula 2.0 28 07/17/17 07:19 99 22 99 Nasal Cannula 2.0 28 07/17/17 07:17 Nasal Cannula 2.0 28 07/17/17 07:16 99 Nasal Cannula 2.0 28 07/17/17 04:00 98.2 109 24 110/66 100 Nasal Cannula 2.0 07/17/17 04:00 105 07/17/17 03:46 94 20 99 Nasal Cannula 2.0 28 07/17/17 03:36 88 18 98 Nasal Cannula 2.0 28 07/17/17 01:00 Nasal Cannula 2.0 07/17/17 00:00 92 07/17/17 00:00 97.7 98 22 123/77 100 Nasal Cannula 2.0 07/16/17 23:21 96 20 99 Nasal Cannula 2.0 28 07/16/17 23:10 92 18 97 Nasal Cannula 2.0 28 07/16/17 22:00 Nasal Cannula 2.0 07/16/17 20:03 114 125/68 07/16/17 20:00 102 07/16/17 20:00 98.3 114 22 125/64 98 Nasal Cannula 2.0 07/16/17 19:25 93 20 99 Nasal Cannula 2.0 28 07/16/17 19:16 Nasal Cannula 2.0 28 07/16/17 19:16 97 Nasal Cannula 2.0 28 07/16/17 19:15 97 18 97 Nasal Cannula 2.0 28 Microbiology Date/Time Source Procedure Growth Status 06/27/17 14:00 Blood Blood Culture - Final NO GROWTH AFTER 5 DAYS Complete 06/19/17 13:00 Sputum Gram Stain - Final Complete 06/19/17 13:00 Sputum Culture - Final Enterobacter Aerogenes Usual Upper Respiratory Angela Complete 07/11/17 18:00 Ankle Left Gram Stain - Final Complete 07/11/17 18:00 Wound Culture - Final Enterococcus Faecalis - Vre Taisha Albicans Complete Dermatological Wound Assessment : Exudate Amount: None Barrett Long DPM Jul 17, 2017 18:36
--- NOTE | 2017-07-17 19:08 | General Progress Note ---
Assessment/Plan Assessment/Plan 1) Healthcare-associated pneumonia (2) Malnutrition of moderate degree (3) End-stage renal disease (4) Respiratory failure (5) Septic shock Plan: HD tomorrow Subjective Allergies: Coded Allergies: No Known Allergies (Unverified , 06/18/17) Subjective He is doing status quo, more alert Objective Last 24 Hour Vital Signs Date Time Temp Pulse Resp B/P (MAP) Pulse Ox O2 Delivery O2 Flow Rate FiO2 07/17/17 16:00 98.2 102 24 106/62 98 Nasal Cannula 2.0 07/17/17 16:00 95 07/17/17 15:59 85 22 100 Nasal Cannula 2.0 28 07/17/17 15:50 87 22 99 Nasal Cannula 2.0 28 07/17/17 12:00 101 07/17/17 12:00 98.1 103 22 132/68 100 Nasal Cannula 2.0 07/17/17 11:50 79 20 100 Nasal Cannula 2.0 28 07/17/17 11:40 75 20 100 Nasal Cannula 2.0 28 07/17/17 08:40 106 116/65 07/17/17 08:00 97.9 106 22 116/65 98 Nasal Cannula 2.0 07/17/17 08:00 105 07/17/17 07:29 99 22 100 Nasal Cannula 2.0 28 07/17/17 07:19 99 22 99 Nasal Cannula 2.0 28 07/17/17 07:17 Nasal Cannula 2.0 28 07/17/17 07:16 99 Nasal Cannula 2.0 28 07/17/17 04:00 98.2 109 24 110/66 100 Nasal Cannula 2.0 07/17/17 04:00 105 07/17/17 03:46 94 20 99 Nasal Cannula 2.0 28 07/17/17 03:36 88 18 98 Nasal Cannula 2.0 28 07/17/17 01:00 Nasal Cannula 2.0 07/17/17 00:00 92 07/17/17 00:00 97.7 98 22 123/77 100 Nasal Cannula 2.0 07/16/17 23:21 96 20 99 Nasal Cannula 2.0 28 07/16/17 23:10 92 18 97 Nasal Cannula 2.0 28 07/16/17 22:00 Nasal Cannula 2.0 07/16/17 20:03 114 125/68 07/16/17 20:00 102 07/16/17 20:00 98.3 114 22 125/64 98 Nasal Cannula 2.0 07/16/17 19:25 93 20 99 Nasal Cannula 2.0 28 07/16/17 19:16 Nasal Cannula 2.0 28 07/16/17 19:16 97 Nasal Cannula 2.0 28 07/16/17 19:15 97 18 97 Nasal Cannula 2.0 28 Intake and Output 07/16/17 07/17/17 19:00 07:00 Intake Total 510 ml 380 ml Output Total 100 ml Balance 410 ml 380 ml Intake Free Water 150 ml 50 ml Tube Feeding 360 ml 330 ml Output Urine Total 100 ml # Bowel Movements 4 5 Height (Feet): 5 Height (Inches): 8.00 Weight (Pounds): 180 General Appearance: WD/WN, no apparent distress, alert EENT: PERRL/EOMI Neck: non-tender, normal alignment Cardiovascular: normal rate, no JVD Respiratory/Chest: decreased breath sounds Abdomen: normal bowel sounds, non tender Extremities: normal range of motion Edema: trace edema Neurologic: disoriented JEAN-CLAUDE AGUIRRE Jul 17, 2017 19:08
[2017-07-17 20:00] VITALS: BP 115/67
--- NOTE | 2017-07-17 22:14 | General Progress Note ---
Assessment/Plan Assessment/Plan Assessment - Dysphagia - s/p PEG - OBS - abnormal LFT --> Hepatitis C (+) - renal failure - Anemia - CVA Recommendations continue TF - Elevate HOB - Monitor labs - D/C planning Subjective Allergies: Coded Allergies: No Known Allergies (Unverified , 06/18/17) Subjective No events overnight tolerating TF minimally interactive Objective Last 24 Hour Vital Signs Date Time Temp Pulse Resp B/P (MAP) Pulse Ox O2 Delivery O2 Flow Rate FiO2 07/17/17 20:57 95 106/62 07/17/17 20:13 95 20 100 Nasal Cannula 2.0 28 07/17/17 20:12 98 Nasal Cannula 2.0 28 07/17/17 20:12 Nasal Cannula 2.0 28 07/17/17 20:05 85 20 99 Nasal Cannula 2.0 28 07/17/17 16:00 98.2 102 24 106/62 98 Nasal Cannula 2.0 07/17/17 16:00 95 07/17/17 15:59 85 22 100 Nasal Cannula 2.0 28 07/17/17 15:50 87 22 99 Nasal Cannula 2.0 28 07/17/17 12:00 101 07/17/17 12:00 98.1 103 22 132/68 100 Nasal Cannula 2.0 07/17/17 11:50 79 20 100 Nasal Cannula 2.0 28 07/17/17 11:40 75 20 100 Nasal Cannula 2.0 28 07/17/17 08:40 106 116/65 07/17/17 08:00 97.9 106 22 116/65 98 Nasal Cannula 2.0 07/17/17 08:00 105 07/17/17 07:29 99 22 100 Nasal Cannula 2.0 28 07/17/17 07:19 99 22 99 Nasal Cannula 2.0 28 07/17/17 07:17 Nasal Cannula 2.0 28 07/17/17 07:16 99 Nasal Cannula 2.0 28 07/17/17 04:00 98.2 109 24 110/66 100 Nasal Cannula 2.0 07/17/17 04:00 105 07/17/17 03:46 94 20 99 Nasal Cannula 2.0 28 07/17/17 03:36 88 18 98 Nasal Cannula 2.0 28 07/17/17 01:00 Nasal Cannula 2.0 07/17/17 00:00 92 07/17/17 00:00 97.7 98 22 123/77 100 Nasal Cannula 2.0 07/16/17 23:21 96 20 99 Nasal Cannula 2.0 28 07/16/17 23:10 92 18 97 Nasal Cannula 2.0 28 Intake and Output 07/16/17 07/17/17 19:00 07:00 Intake Total 510 ml 380 ml Output Total 100 ml Balance 410 ml 380 ml Intake Free Water 150 ml 50 ml Tube Feeding 360 ml 330 ml Output Urine Total 100 ml # Bowel Movements 4 5 Height (Feet): 5 Height (Inches): 8.00 Weight (Pounds): 180 Objective Debilitated AA man NCAT supple Chest:coarse BS RR , tachy abd soft ND NT, (+) GT no edema OBS, contractures MONIKA SMITH Jul 17, 2017 22:14
[2017-07-17] MEDS: Fluconazole 100mg tab GT SCH (22:23)
[2017-07-17] MEDS: Epogen (for ESRD on dialysis) SUBQ SCH (22:24)
[2017-07-17] MEDS: Dyna-Hex 2% Top Sol 2oz TOPIC SCH (22:32)
--- NOTE | 2017-07-17 23:04 | Endoscopy Procedure Note ---
Endoscopy Procedure Note Indication for Procedure: dysphagia Procedures Performed: PEG Operative Findings/Diagnosis: s/p PEG Specimen: none Pt Tolerated Procedure Well: Yes Estimated Blood Loss: none Anesthesiologist: see report Anesthesia: MAC Medication Given: see anesthesia record Implant(s) used?: No 50 yrs or older w/o bx or poly: Not Applicable 10yrs. F/U not recommended: Not Applicable If not recommended, why?: MONIKA SMITH Jul 17, 2017 23:04
--- NOTE | 2017-07-17 23:06 | Brief Operative Note ---
Immediate Post Operative Note Operative Note Chief Complaint: dysphagia Pre-op Diagnosis: dysphagia Procedure: PEG Post-op Diagnosis: dysphagia Surgeon: les Anesthesiologist: see report Anesthesia: MAC Specimen: none Complications: none Condition: stable Fluids: recorded Estimated Blood Loss: none Drains: none Implant(s) used?: No MONIKA SMITH Jul 17, 2017 23:06
[2017-07-18] VITALS: BP 106/64
[2017-07-18] MEDS: NovoLOG Insulin Flexpen SUBQ SCH ×5 (03:09→23:39)
[2017-07-18] MEDS: Albuterol ud Inhalation HHN SCH ×3 (03:20→11:10)
--- NOTE | 2017-07-18 03:45 | Operative Note - Dictated ---
DATE OF OPERATION: 07/14/2017 GASTROENTEROLOGY PROCEDURE REPORT PROCEDURE: Upper gastrointestinal endoscopy with gastrostomy tube placement. SURGEON: Ladi Fox M.D. ANESTHESIA: Please see the separate anesthesiologist notes for details. PRE-ENDOSCOPIC DIAGNOSIS: Dysphagia. POST-ENDOSCOPIC DIAGNOSIS: Gastrostomy tube placement. DESCRIPTION OF PROCEDURE: The patient was sedated in the supine position and a diagnostic upper endoscope was introduced through the oropharynx and advanced to the duodenum. A location for the insertion of the gastrostomy tube was identified by palpation and transillumination techniques. The outside skin was sterilely prepared, anesthetized, incised, and a trocar needle was used to place the gastrostomy tube using the standard pull technique. The patient tolerated the procedure well and left to recovery in good condition. COMPLICATIONS: None. RECOMMENDATIONS: 1. Follow up overnight. 2. Begin gastrostomy tube feedings tomorrow. Laid Fox M.D. DR: ANA JOB#: [id number] CC: [email or web address]
[2017-07-18 04:00] VITALS: BP 116/65
--- NOTE | 2017-07-18 04:15 | Progress Note ---
DATE: 07/17/2017 CARDIOLOGY PROGRESS NOTE SUBJECTIVE: The patient remains on IV antibiotics. He is on hemodialysis three times a week. He is status post G-tube and is tolerating nutrition. OBJECTIVE: VITAL SIGNS: Blood pressure 106/54, pulse 67, respiratory rate 25, afebrile. LUNGS: Scattered rhonchi. HEART: Regular rhythm and rate. Normal S1, S2. ABDOMEN: Soft. EXTREMITIES: No edema. Catheter site clean and dry. IMPRESSION: 1. Osteomyelitis of the ankle. 2. Status post respiratory failure. 3. Dysphagia, status post percutaneous endoscopic gastrostomy. 4. Acute myocardial infarction. 5. Acute on chronic diastolic congestive heart failure. 6. End-stage renal disease. 7. Hypertensive heart disease. 8. Methicillin-resistant Staphylococcus aureus bacteremia. 9. Positive risk for endocarditis. PLAN: 1. Antimicrobials per Infectious Disease [facility] consultant. 2. Hemodialysis with ultrafiltration. 3. Respiratory hygiene. 4. Nutrition by feeding tube. 5. We will discuss discharge planning. Gurdeep Harvey M.D. DR: COLTON JOB#: [id number] CC:
[2017-07-18 04:38] LABS: BASOPHILS % (AUTO) 0.4 % (0.0-2.0); EOSINOPHILS % (AUTO) 0.8 % (0.0-3.0); HEMATOCRIT 28.5 % (42.0-52.0); LYMPHOCYTES % (AUTO) 10.3 % (20.0-45.0); MEAN CORPUSCULAR VOLUME 92 FL (80-99); MONOCYTES % (AUTO) 11.5 % (1.0-10.0); NEUTROPHILS % (AUTO) 76.9 % (45.0-75.0); PLATELET COUNT 425 K/UL (150-450); RED BLOOD COUNT 3.12 M/UL (4.70-6.10); RED CELL DISTRIBUTION WIDTH 19.6 % (11.6-14.8)
[2017-07-18 08:00] VITALS: BP 107/58
--- NOTE | 2017-07-18 09:53 | General Progress Note ---
Assessment/Plan Problem List: (1) Catheter-related bloodstream infection ICD Codes: T80.211A - Bloodstream infection due to central venous catheter, initial encounter SNOMED: 113294168 (2) Renal failure ICD Codes: N19 - Unspecified kidney failure SNOMED: 83768152 (3) Septic shock ICD Codes: A41.9 - Sepsis, unspecified organism; R65.21 - Severe sepsis with septic shock SNOMED: 56476205 (4) Respiratory failure ICD Codes: J96.90 - Respiratory failure, unspecified, unspecified whether with hypoxia or hypercapnia SNOMED: 916802691 (5) Malnutrition of moderate degree ICD Codes: E44.0 - Moderate protein-calorie malnutrition SNOMED: 125836089 (6) End-stage renal disease ICD Codes: N18.6 - End stage renal disease SNOMED: 38285189 (7) Healthcare-associated pneumonia ICD Codes: J18.9 - Pneumonia, unspecified organism SNOMED: 916612341 Status: stable, progressing Assessment/Plan cont iv abx per id HD as tolerated resp rx feeds per gi dvt/stress ulcer prophyalxi monitor h/h transfuse as needed epo/iron dnr Subjective ROS Limited/Unobtainable: No Constitutional: Reports: malaise, weakness HEENT: Reports: no symptoms Cardiovascular: Reports: no symptoms Respiratory: Reports: cough Gastrointestinal/Abdominal: Reports: no symptoms Genitourinary: Reports: no symptoms Neurologic/Psychiatric: Reports: pre-existing deficit Endocrine: Reports: no symptoms Hematologic/Lymphatic: Reports: no symptoms Allergies: Coded Allergies: No Known Allergies (Unverified , 06/18/17) All Systems: reviewed and negative except above Subjective no events. s/p uncomplicated gt placement. tolerating feeds. remains poorly responsive at baseline. minimal congestion. tolerating feeds ` Objective Last 24 Hour Vital Signs Date Time Temp Pulse Resp B/P (MAP) Pulse Ox O2 Delivery O2 Flow Rate FiO2 07/18/17 08:20 Nasal Cannula 2.0 07/18/17 08:00 97.0 95 22 107/58 97 Nasal Cannula 2.0 07/18/17 07:59 Nasal Cannula 2.0 28 07/18/17 07:58 102 20 100 Nasal Cannula 2.0 28 07/18/17 07:51 98 07/18/17 07:50 101 20 97 Nasal Cannula 2.0 28 07/18/17 07:48 97 Nasal Cannula 2.0 28 07/18/17 05:20 Nasal Cannula 2.0 07/18/17 04:31 91 07/18/17 04:00 92 07/18/17 04:00 97.3 95 28 116/65 100 Nasal Cannula 2.0 07/18/17 03:32 97 20 100 Nasal Cannula 2.0 28 07/18/17 03:22 94 20 99 Nasal Cannula 2.0 28 07/18/17 00:00 98.2 67 25 106/64 100 Nasal Cannula 2.0 07/18/17 00:00 91 07/17/17 23:34 88 20 100 Nasal Cannula 2.0 28 07/17/17 23:23 83 20 99 Nasal Cannula 2.0 28 07/17/17 20:57 95 106/62 07/17/17 20:13 95 20 100 Nasal Cannula 2.0 28 07/17/17 20:12 98 Nasal Cannula 2.0 28 07/17/17 20:12 Nasal Cannula 2.0 28 07/17/17 20:05 85 20 99 Nasal Cannula 2.0 28 07/17/17 20:00 100 07/17/17 20:00 98.2 67 24 115/67 98 Nasal Cannula 2.0 07/17/17 16:00 98.2 102 24 106/62 98 Nasal Cannula 2.0 07/17/17 16:00 95 07/17/17 15:59 85 22 100 Nasal Cannula 2.0 28 07/17/17 15:50 87 22 99 Nasal Cannula 2.0 28 07/17/17 12:00 101 07/17/17 12:00 98.1 103 22 132/68 100 Nasal Cannula 2.0 07/17/17 11:50 79 20 100 Nasal Cannula 2.0 28 07/17/17 11:40 75 20 100 Nasal Cannula 2.0 28 Intake and Output 07/17/17 07/18/17 19:00 07:00 Intake Total 420 ml 460 ml Output Total 50 ml 0 ml Balance 370 ml 460 ml Intake Free Water 60 ml 100 ml Tube Feeding 360 ml 360 ml Output Urine Total 50 ml 0 ml # Bowel Movements 1 1 Laboratory Tests 07/18/17 03:35: White Blood Count 10.0, Red Blood Count 3.12L, Hemoglobin 9.0L, Hematocrit 28.5L , Mean Corpuscular Volume 92, Mean Corpuscular Hemoglobin 28.8, Mean Corpuscular Hemoglobin Concent 31.5L, Red Cell Distribution Width 19.6H, Platelet Count 425, Mean Platelet Volume 5.5L, Neutrophils (%) (Auto) 76.9H, Lymphocytes (%) (Auto) 10.3L, Monocytes (%) (Auto) 11.5H, Eosinophils (%) (Auto ) 0.8, Basophils (%) (Auto) 0.4 Height (Feet): 5 Height (Inches): 8.00 Weight (Pounds): 183 Objective General Appearance: WD/WN, alert, confused Neck: supple Cardiovascular: regular rhythm Respiratory/Chest: chest wall non-tender, few rhonchi, normal breath sounds, no respiratory distress Abdomen: normal bowel sounds, non tender, soft, no organomegaly, no mass Edema: no edema noted Arm (L), no edema noted Arm (R), no edema noted Leg (L), no edema noted Leg (R), no edema noted Pedal (L), no edema noted Pedal (R), no edema noted Generalized Neurologic: more alert, aphasia KEENA BRANDT Jul 18, 2017 09:53
[2017-07-18] MEDS: Aspirin Baby 81mg NG SCH (10:08)
[2017-07-18] MEDS: Fluconazole 100mg tab GT SCH (10:08)
[2017-07-18] MEDS: Heparin 5000 units/ml inj SUBQ SCH (10:11)
--- NOTE | 2017-07-18 10:37 | Pulmonology Progress Note ---
Assessment/Plan Assessment/Plan 1. Respiratory failure, resolved 2. Sepsis with shock, resolved 3. Dialysis catheter sepsis 4. Stroke with dementia and right hemiparesis. 5. Diabetes. 6. Foot osteo tolerating PEG feedings well continues on HD nebs and suction abx per id DNR/DNI HHN O2 prognosis guarded DC planning Subjective ROS Limited/Unobtainable: Yes Allergies: Coded Allergies: No Known Allergies (Unverified , 06/18/17) Objective Last 24 Hour Vital Signs Date Time Temp Pulse Resp B/P (MAP) Pulse Ox O2 Delivery O2 Flow Rate FiO2 07/18/17 08:20 Nasal Cannula 2.0 07/18/17 08:00 97.0 95 22 107/58 97 Nasal Cannula 2.0 07/18/17 07:59 Nasal Cannula 2.0 28 07/18/17 07:58 102 20 100 Nasal Cannula 2.0 28 07/18/17 07:51 98 07/18/17 07:50 101 20 97 Nasal Cannula 2.0 28 07/18/17 07:48 97 Nasal Cannula 2.0 28 07/18/17 05:20 Nasal Cannula 2.0 07/18/17 04:31 91 07/18/17 04:00 92 07/18/17 04:00 97.3 95 28 116/65 100 Nasal Cannula 2.0 07/18/17 03:32 97 20 100 Nasal Cannula 2.0 28 07/18/17 03:22 94 20 99 Nasal Cannula 2.0 28 07/18/17 00:00 98.2 67 25 106/64 100 Nasal Cannula 2.0 07/18/17 00:00 91 07/17/17 23:34 88 20 100 Nasal Cannula 2.0 28 07/17/17 23:23 83 20 99 Nasal Cannula 2.0 28 07/17/17 20:57 95 106/62 07/17/17 20:13 95 20 100 Nasal Cannula 2.0 28 07/17/17 20:12 98 Nasal Cannula 2.0 28 07/17/17 20:12 Nasal Cannula 2.0 28 07/17/17 20:05 85 20 99 Nasal Cannula 2.0 28 07/17/17 20:00 100 07/17/17 20:00 98.2 67 24 115/67 98 Nasal Cannula 2.0 07/17/17 16:00 98.2 102 24 106/62 98 Nasal Cannula 2.0 07/17/17 16:00 95 07/17/17 15:59 85 22 100 Nasal Cannula 2.0 28 07/17/17 15:50 87 22 99 Nasal Cannula 2.0 28 07/17/17 12:00 101 07/17/17 12:00 98.1 103 22 132/68 100 Nasal Cannula 2.0 07/17/17 11:50 79 20 100 Nasal Cannula 2.0 28 07/17/17 11:40 75 20 100 Nasal Cannula 2.0 28 Intake and Output 07/17/17 07/18/17 19:00 07:00 Intake Total 420 ml 460 ml Output Total 50 ml 0 ml Balance 370 ml 460 ml Intake Free Water 60 ml 100 ml Tube Feeding 360 ml 360 ml Output Urine Total 50 ml 0 ml # Bowel Movements 1 1 General Appearance: no acute distress HEENT: atraumatic Respiratory/Chest: rhonchi Cardiovascular: normal rate Laboratory Tests 07/18/17 03:35: White Blood Count 10.0, Red Blood Count 3.12L, Hemoglobin 9.0L, Hematocrit 28.5L , Mean Corpuscular Volume 92, Mean Corpuscular Hemoglobin 28.8, Mean Corpuscular Hemoglobin Concent 31.5L, Red Cell Distribution Width 19.6H, Platelet Count 425, Mean Platelet Volume 5.5L, Neutrophils (%) (Auto) 76.9H, Lymphocytes (%) (Auto) 10.3L, Monocytes (%) (Auto) 11.5H, Eosinophils (%) (Auto ) 0.8, Basophils (%) (Auto) 0.4 Current Medications Medications (Trade) Dose Ordered Sig/Jaime Route PRN Reason Start Time Stop Time Status Last Admin Dose Admin Acetaminophen (Tylenol) 650 mg Q4H PRN RECTAL Prn Headache/Temp > 101 07/08/17 17:00 07/18/17 20:59 Albuterol Sulfate (Proventil) 2.5 mg Q4HRT HHN 07/13/17 11:00 07/18/17 10:59 07/18/17 08:15 Amoxicillin (Amoxil) 500 mg Q24H GT 07/15/17 22:00 08/24/17 23:59 07/17/17 21:01 Aspirin (ASA) 81 mg DAILY NG 07/09/17 09:00 07/19/17 18:59 07/18/17 10:08 Chlorhexidine Gluconate (Kati-Hex 2%) 1 applic Q24H TOPIC 07/08/17 20:00 07/19/17 19:59 07/17/17 22:32 Dextrose (Dextrose 50%) STAT PRN IV Hypoglycemia 07/09/17 13:00 07/19/17 12:59 Epoetin Russ (Procrit (for ESRD on dialysis)) 5,000 units MON-MON-MON SUBQ 07/10/17 21:00 07/21/17 20:59 07/17/17 22:24 Fluconazole (Diflucan) 100 mg Q24H GT 07/15/17 22:00 08/24/17 21:59 07/18/17 10:08 Heparin Sodium (Porcine) (Heparin 5000 units/ml) 5,000 units EVERY 12 HOURS SUBQ 07/08/17 21:00 07/18/17 20:59 07/18/17 10:11 Heparin Sodium (Porcine) (Heparin Sod 1000 units/ml 10ml) 500 unit ONCE ONCE IV 07/18/17 19:15 07/18/17 19:16 Insulin Aspart (NovoLOG) EVERY 6 HOURS SUBQ 07/08/17 18:00 07/19/17 17:59 07/18/17 03:09 Lansoprazole (Prevacid) 30 mg DAILY GT 07/09/17 09:00 07/19/17 08:59 07/18/17 10:08 Metoprolol Tartrate (Lopressor) 50 mg Q12HR ORAL 07/16/17 21:00 08/15/17 20:59 07/17/17 20:57 Sodium Chloride 550 ml @ 500 mls/hr Q1H6M PRN IV sbp<90 during hd 07/08/17 16:00 07/27/17 11:08 PEG MARTINEZ Jul 18, 2017 10:37
--- NOTE | 2017-07-18 10:40 | Infectious Diseases Prog Note ---
"Assessment/Plan Assessment/Plan antibiotics :po amoxicillin, fluconazole A 1. MRSA sepsis s/p catheter removal 2. septic shock 3. respiratory failure resolved 4. renal failure 5. MRSA | enterobacter pneumonia 6. leucocytosis resolved 7. 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 continue po amoxicillin, fluconazole 37 more days 2. will follow up cultures Subjective ROS Limited/Unobtainable: Yes Allergies: Coded Allergies: No Known Allergies (Unverified , 06/18/17) Objective Vital Signs Last 24 Hour Vital Signs Date Time Temp Pulse Resp B/P (MAP) Pulse Ox O2 Delivery O2 Flow Rate FiO2 07/18/17 08:20 Nasal Cannula 2.0 07/18/17 08:00 97.0 95 22 107/58 97 Nasal Cannula 2.0 07/18/17 07:59 Nasal Cannula 2.0 28 07/18/17 07:58 102 20 100 Nasal Cannula 2.0 28 07/18/17 07:51 98 07/18/17 07:50 101 20 97 Nasal Cannula 2.0 28 07/18/17 07:48 97 Nasal Cannula 2.0 28 07/18/17 05:20 Nasal Cannula 2.0 07/18/17 04:31 91 07/18/17 04:00 92 07/18/17 04:00 97.3 95 28 116/65 100 Nasal Cannula 2.0 07/18/17 03:32 97 20 100 Nasal Cannula 2.0 28 07/18/17 03:22 94 20 99 Nasal Cannula 2.0 28 07/18/17 00:00 98.2 67 25 106/64 100 Nasal Cannula 2.0 07/18/17 00:00 91 07/17/17 23:34 88 20 100 Nasal Cannula 2.0 28 07/17/17 23:23 83 20 99 Nasal Cannula 2.0 28 07/17/17 20:57 95 106/62 07/17/17 20:13 95 20 100 Nasal Cannula 2.0 28 07/17/17 20:12 98 Nasal Cannula 2.0 28 07/17/17 20:12 Nasal Cannula 2.0 28 07/17/17 20:05 85 20 99 Nasal Cannula 2.0 28 07/17/17 20:00 100 07/17/17 20:00 98.2 67 24 115/67 98 Nasal Cannula 2.0 07/17/17 16:00 98.2 102 24 106/62 98 Nasal Cannula 2.0 07/17/17 16:00 95 07/17/17 15:59 85 22 100 Nasal Cannula 2.0 28 07/17/17 15:50 87 22 99 Nasal Cannula 2.0 28 07/17/17 12:00 101 07/17/17 12:00 98.1 103 22 132/68 100 Nasal Cannula 2.0 07/17/17 11:50 79 20 100 Nasal Cannula 2.0 28 07/17/17 11:40 75 20 100 Nasal Cannula 2.0 28 Height (Feet): 5 Height (Inches): 8.00 Weight (Pounds): 183 Respiratory/Chest: lungs clear Cardiovascular: normal rate, regular rhythm, no gallop/murmur Abdomen: soft, non tender, other - scrotal edema Extremities: no edema Laboratory Tests Test 07/18/17 03:35 White Blood Count 10.0 K/UL (4.8-10.8) Red Blood Count 3.12 M/UL (4.70-6.10) L Hemoglobin 9.0 G/DL (14.2-18.0) L Hematocrit 28.5 % (42.0-52.0) L Mean Corpuscular Volume 92 FL (80-99) Mean Corpuscular Hemoglobin 28.8 PG (27.0-31.0) Mean Corpuscular Hemoglobin Concent 31.5 G/DL (32.0-36.0) L Red Cell Distribution Width 19.6 % (11.6-14.8) H Platelet Count 425 K/UL (150-450) Mean Platelet Volume 5.5 FL (6.5-10.1) L Neutrophils (%) (Auto) 76.9 % (45.0-75.0) H Lymphocytes (%) (Auto) 10.3 % (20.0-45.0) L Monocytes (%) (Auto) 11.5 % (1.0-10.0) H Eosinophils (%) (Auto) 0.8 % (0.0-3.0) Basophils (%) (Auto) 0.4 % (0.0-2.0) ARTIS SANTIAGO Jul 18, 2017 10:40"
[2017-07-18 12:00] VITALS: BP 114/63
[2017-07-18] MEDS: Metoprolol Tartrate 50mg tab ORAL SCH ×2 (14:03→21:00)
[2017-07-18 16:00] VITALS: BP 101/57
[2017-07-18] MEDS ORDERED: Heparin Sod 1000 units/ml 10ml IV ONE (19:15)
--- NOTE | 2017-07-18 19:47 | General Progress Note ---
Assessment/Plan Assessment/Plan Assessment - Dysphagia - s/p PEG - OBS - abnormal LFT --> Hepatitis C (+) - renal failure - Anemia - CVA Recommendations continue TF - Elevate HOB - Monitor labs - GT care - D/C planning Subjective Allergies: Coded Allergies: No Known Allergies (Unverified , 06/18/17) Subjective No events overnight tolerating TF minimally interactive d/c planning noted Objective Last 24 Hour Vital Signs Date Time Temp Pulse Resp B/P (MAP) Pulse Ox O2 Delivery O2 Flow Rate FiO2 07/18/17 16:00 96 07/18/17 16:00 96.6 93 20 101/57 97 Nasal Cannula 2.0 07/18/17 14:03 104 114/63 07/18/17 12:00 98.2 104 18 114/63 96 07/18/17 11:32 105 07/18/17 11:17 106 20 07/18/17 11:17 106 20 100 Nasal Cannula 2.0 28 07/18/17 11:05 100 20 99 Nasal Cannula 2.0 28 07/18/17 08:20 Nasal Cannula 2.0 07/18/17 08:00 97.0 95 22 107/58 97 Nasal Cannula 2.0 07/18/17 07:59 Nasal Cannula 2.0 28 07/18/17 07:58 102 20 100 Nasal Cannula 2.0 28 07/18/17 07:51 98 07/18/17 07:50 101 20 97 Nasal Cannula 2.0 28 07/18/17 07:48 97 Nasal Cannula 2.0 28 07/18/17 05:20 Nasal Cannula 2.0 07/18/17 04:31 91 07/18/17 04:00 92 07/18/17 04:00 97.3 95 28 116/65 100 Nasal Cannula 2.0 07/18/17 03:32 97 20 100 Nasal Cannula 2.0 28 07/18/17 03:22 94 20 99 Nasal Cannula 2.0 28 07/18/17 00:00 98.2 67 25 106/64 100 Nasal Cannula 2.0 07/18/17 00:00 91 07/17/17 23:34 88 20 100 Nasal Cannula 2.0 28 07/17/17 23:23 83 20 99 Nasal Cannula 2.0 28 07/17/17 20:57 95 106/62 07/17/17 20:13 95 20 100 Nasal Cannula 2.0 28 07/17/17 20:12 98 Nasal Cannula 2.0 28 07/17/17 20:12 Nasal Cannula 2.0 28 07/17/17 20:05 85 20 99 Nasal Cannula 2.0 28 07/17/17 20:00 100 07/17/17 20:00 98.2 67 24 115/67 98 Nasal Cannula 2.0 Intake and Output 07/17/17 07/18/17 19:00 07:00 Intake Total 420 ml 460 ml Output Total 50 ml 0 ml Balance 370 ml 460 ml Intake Free Water 60 ml 100 ml Tube Feeding 360 ml 360 ml Output Urine Total 50 ml 0 ml # Bowel Movements 1 1 Laboratory Tests 07/18/17 03:35: White Blood Count 10.0, Red Blood Count 3.12L, Hemoglobin 9.0L, Hematocrit 28.5L , Mean Corpuscular Volume 92, Mean Corpuscular Hemoglobin 28.8, Mean Corpuscular Hemoglobin Concent 31.5L, Red Cell Distribution Width 19.6H, Platelet Count 425, Mean Platelet Volume 5.5L, Neutrophils (%) (Auto) 76.9H, Lymphocytes (%) (Auto) 10.3L, Monocytes (%) (Auto) 11.5H, Eosinophils (%) (Auto ) 0.8, Basophils (%) (Auto) 0.4 Height (Feet): 5 Height (Inches): 8.00 Weight (Pounds): 183 Objective Debilitated AA man NCAT supple Chest:coarse BS RR , tachy abd soft ND NT, (+) GT no edema OBS, contractures MONIKA SMITH Jul 18, 2017 19:47
[2017-07-18 20:00] VITALS: BP 94/53
[2017-07-18] MEDS: Dyna-Hex 2% Top Sol 2oz TOPIC SCH (21:04)
--- NOTE | 2017-07-18 22:15 | Progress Note ---
DATE: 07/18/2017 SUBJECTIVE: The patient is seen today and has had dialysis today. He is maintaining his blood pressure mostly above 100 systolic and he is not having any apparent shortness of breath. OBJECTIVE: VITAL SIGNS: Stable. LUNGS: Clear. HEART: Regular rate and rhythm. ABDOMEN: Soft. EXTREMITIES: Trace edema. NEUROLOGIC: He is lethargic and disoriented. LABORATORY DATA: Reviewed and include a white count of 10,000 and hemoglobin of 9. Sodium 139, potassium 3.9, BUN 48, and creatinine 4.8. IMPRESSION: 1. End-stage renal disease. 2. History of sepsis. 3. Recent respiratory failure, resolved. 4. Pneumonia, improved. 5. Possible osteomyelitis. PLAN: The patient will continue with maintenance dialysis. Bre is being evaluated for his infectious problem. He remains severely debilitated with dementia, bedridden state, and severe malnutrition. Ervin Swan M.D. DR: JESUS JOB#: [id number] CC:
[2017-07-19] VITALS: BP 98/48
--- NOTE | 2017-07-19 02:15 | Progress Note ---
DATE: 07/18/2017 CARDIOLOGY PROGRESS NOTE SUBJECTIVE: The patient is remaining on hemodialysis. OBJECTIVE: VITAL SIGNS: Blood pressure 101/57, heart rate 93 to 106, respiratory rate 18 to 20, and afebrile. LUNGS: Coarse breath sounds. Few rhonchi. HEART: Regular rhythm. Rapid rate. Normal S1 and S2. ABDOMEN: Soft. EXTREMITIES: No edema. Catheter site with no secondary erythema or drainage. LABORATORY DATA: White count 10 and hemoglobin 9. IMPRESSION: 1. Status post respiratory failure. 2. Acute on chronic diastolic congestive heart failure. 3. Severe protein-calorie malnutrition. 4. End-stage renal disease. 5. Secondary sinus tachycardia. 6. Status post line sepsis with methicillin-resistant Staphylococcus aureus bacteremia. 7. Possible osteomyelitis of ankle. PLAN: 1. Continue maintenance hemodialysis. 2. Antimicrobials. 3. Discharge planning. 4. with nursing facility. 5. Nutrition by feeding tube. 6. Titrate cardiovascular regimen. Gurdeep Harvey M.D. DR: MALCOLM JOB#: [id number] CC:
[2017-07-19 04:00] VITALS: BP 104/60
[2017-07-19] MEDS: NovoLOG Insulin Flexpen SUBQ SCH ×5 (05:42→23:43)
--- NOTE | 2017-07-19 07:56 | Nephrology Progress Note ---
Assessment/Plan Problem List: (1) Healthcare-associated pneumonia (2) Malnutrition of moderate degree (3) End-stage renal disease (4) Respiratory failure (5) Septic shock (6) Osteomyelitis (7) Catheter-related bloodstream infection (8) Anemia Plan , meds reviewed for eskd,hypotension, mrsa sepsis, hd 07/18, eval for osteo, dc plan d/w dr espino Subjective ROS Limited/Unobtainable: Yes Objective Objective Last 24 Hour Vital Signs Date Time Temp Pulse Resp B/P (MAP) Pulse Ox O2 Delivery O2 Flow Rate FiO2 07/19/17 04:00 97.9 97 38 104/60 100 Nasal Cannula 2.0 07/19/17 03:59 103 07/19/17 00:00 98.4 106 25 98/48 100 Nasal Cannula 2.0 07/18/17 23:40 103 07/18/17 21:00 99 94/53 07/18/17 20:42 99 07/18/17 20:00 98.1 99 30 94/53 100 Nasal Cannula 2.0 07/18/17 19:10 Nasal Cannula 2.0 28 07/18/17 19:10 98 Nasal Cannula 2.0 28 07/18/17 16:00 96 07/18/17 16:00 96.6 93 20 101/57 97 Nasal Cannula 2.0 07/18/17 14:03 104 114/63 07/18/17 12:00 98.2 104 18 114/63 96 07/18/17 11:32 105 07/18/17 11:17 106 20 07/18/17 11:17 106 20 100 Nasal Cannula 2.0 28 07/18/17 11:05 100 20 99 Nasal Cannula 2.0 28 07/18/17 08:20 Nasal Cannula 2.0 07/18/17 08:00 97.0 95 22 107/58 97 Nasal Cannula 2.0 07/18/17 07:59 Nasal Cannula 2.0 28 07/18/17 07:58 102 20 100 Nasal Cannula 2.0 28 Intake and Output 07/18/17 07/19/17 19:00 07:00 Intake Total 460 ml 430 ml Output Total 3000 ml Balance -2540 ml 430 ml Intake Free Water 100 ml 100 ml Tube Feeding 360 ml 330 ml Hemodialysis UF 3000 ml # Bowel Movements 1 1 Height (Feet): 5 Height (Inches): 8.00 Weight (Pounds): 174 General Appearance: lethargic, confused EENT: normal ENT inspection Neck: normal alignment, supple Cardiovascular: regular rhythm Respiratory/Chest: lungs clear Abdomen: non tender, soft Extremities: trace edema Neurologic: motor weakness, disoriented LEONORA HUI Jul 19, 2017 07:56
[2017-07-19 08:00] VITALS: BP 115/68
--- NOTE | 2017-07-19 08:20 | General Progress Note ---
Assessment/Plan Problem List: (1) Catheter-related bloodstream infection ICD Codes: T80.211A - Bloodstream infection due to central venous catheter, initial encounter SNOMED: 828076817 (2) Renal failure ICD Codes: N19 - Unspecified kidney failure SNOMED: 88644953 (3) Septic shock ICD Codes: A41.9 - Sepsis, unspecified organism; R65.21 - Severe sepsis with septic shock SNOMED: 27411048 (4) Respiratory failure ICD Codes: J96.90 - Respiratory failure, unspecified, unspecified whether with hypoxia or hypercapnia SNOMED: 662759986 (5) Malnutrition of moderate degree ICD Codes: E44.0 - Moderate protein-calorie malnutrition SNOMED: 677768015 (6) End-stage renal disease ICD Codes: N18.6 - End stage renal disease SNOMED: 13801864 (7) Healthcare-associated pneumonia ICD Codes: J18.9 - Pneumonia, unspecified organism SNOMED: 178536167 Status: stable, progressing Assessment/Plan cont iv abx per id HD as tolerated resp rx feeds per gi dvt/stress ulcer prophyalxi monitor h/h epo/iron dc planning in process dnr Subjective ROS Limited/Unobtainable: No Constitutional: Reports: malaise, weakness HEENT: Reports: no symptoms Cardiovascular: Reports: no symptoms Respiratory: Reports: cough, sputum Gastrointestinal/Abdominal: Reports: difficulty swallowing Genitourinary: Reports: no symptoms Neurologic/Psychiatric: Reports: pre-existing deficit Endocrine: Reports: no symptoms Hematologic/Lymphatic: Reports: no symptoms Allergies: Coded Allergies: No Known Allergies (Unverified , 06/18/17) All Systems: reviewed and negative except above Subjective no events. s/p uncomplicated gt placement. tolerating feeds. remains poorly responsive at baseline. minimal congestion. tolerating feeds looking for placement ` Objective Last 24 Hour Vital Signs Date Time Temp Pulse Resp B/P (MAP) Pulse Ox O2 Delivery O2 Flow Rate FiO2 07/19/17 08:00 97.5 96 18 115/68 100 Nasal Cannula 2.0 07/19/17 07:10 97 Nasal Cannula 2.0 28 07/19/17 07:10 Nasal Cannula 2.0 28 07/19/17 04:00 97.9 97 38 104/60 100 Nasal Cannula 2.0 07/19/17 03:59 103 07/19/17 00:00 98.4 106 25 98/48 100 Nasal Cannula 2.0 07/18/17 23:40 103 07/18/17 21:00 99 94/53 07/18/17 20:42 99 07/18/17 20:00 98.1 99 30 94/53 100 Nasal Cannula 2.0 07/18/17 19:10 Nasal Cannula 2.0 28 07/18/17 19:10 98 Nasal Cannula 2.0 28 07/18/17 16:00 96 07/18/17 16:00 96.6 93 20 101/57 97 Nasal Cannula 2.0 07/18/17 14:03 104 114/63 07/18/17 12:00 98.2 104 18 114/63 96 07/18/17 11:32 105 07/18/17 11:17 106 20 07/18/17 11:17 106 20 100 Nasal Cannula 2.0 28 07/18/17 11:05 100 20 99 Nasal Cannula 2.0 28 07/18/17 08:20 Nasal Cannula 2.0 Intake and Output 07/18/17 07/19/17 19:00 07:00 Intake Total 460 ml 430 ml Output Total 3000 ml Balance -2540 ml 430 ml Intake Free Water 100 ml 100 ml Tube Feeding 360 ml 330 ml Hemodialysis UF 3000 ml # Bowel Movements 1 1 Height (Feet): 5 Height (Inches): 8.00 Weight (Pounds): 174 Objective General Appearance: WD/WN, alert, confused Neck: supple Cardiovascular: regular rhythm Respiratory/Chest: chest wall non-tender, few rhonchi, normal breath sounds, no respiratory distress Abdomen: normal bowel sounds, non tender, soft, no organomegaly, no mass Edema: no edema noted Arm (L), no edema noted Arm (R), no edema noted Leg (L), no edema noted Leg (R), no edema noted Pedal (L), no edema noted Pedal (R), no edema noted Generalized Neurologic: more alert, aphasia KEENA BRANDT Jul 19, 2017 08:19
--- NOTE | 2017-07-19 08:50 | Pulmonology Progress Note ---
Assessment/Plan Assessment/Plan 1. Respiratory failure, resolved 2. Sepsis with shock, resolved 3. Dialysis catheter sepsis 4. Stroke with dementia and right hemiparesis. 5. Diabetes. 6. Foot osteo tolerating PEG feedings well continues on HD nebs and suction abx per id DNR/DNI HHN O2 prognosis guarded DC planning in progress Subjective ROS Limited/Unobtainable: Yes Allergies: Coded Allergies: No Known Allergies (Unverified , 06/18/17) Objective Last 24 Hour Vital Signs Date Time Temp Pulse Resp B/P (MAP) Pulse Ox O2 Delivery O2 Flow Rate FiO2 07/19/17 08:00 97.5 96 18 115/68 100 Nasal Cannula 2.0 07/19/17 07:10 97 Nasal Cannula 2.0 28 07/19/17 07:10 Nasal Cannula 2.0 28 07/19/17 04:00 97.9 97 38 104/60 100 Nasal Cannula 2.0 07/19/17 03:59 103 07/19/17 00:00 98.4 106 25 98/48 100 Nasal Cannula 2.0 07/18/17 23:40 103 07/18/17 21:00 99 94/53 07/18/17 20:42 99 07/18/17 20:00 98.1 99 30 94/53 100 Nasal Cannula 2.0 07/18/17 19:10 Nasal Cannula 2.0 28 07/18/17 19:10 98 Nasal Cannula 2.0 28 07/18/17 16:00 96 07/18/17 16:00 96.6 93 20 101/57 97 Nasal Cannula 2.0 07/18/17 14:03 104 114/63 07/18/17 12:00 98.2 104 18 114/63 96 07/18/17 11:32 105 07/18/17 11:17 106 20 07/18/17 11:17 106 20 100 Nasal Cannula 2.0 28 07/18/17 11:05 100 20 99 Nasal Cannula 2.0 28 Intake and Output 07/18/17 07/19/17 19:00 07:00 Intake Total 460 ml 430 ml Output Total 3000 ml Balance -2540 ml 430 ml Intake Free Water 100 ml 100 ml Tube Feeding 360 ml 330 ml Hemodialysis UF 3000 ml # Bowel Movements 1 1 General Appearance: no acute distress Respiratory/Chest: lungs clear Cardiovascular: normal rate Current Medications Medications (Trade) Dose Ordered Sig/Jaime Route PRN Reason Start Time Stop Time Status Last Admin Dose Admin Amoxicillin (Amoxil) 500 mg Q24H GT 07/15/17 22:00 08/24/17 23:59 07/18/17 21:04 Aspirin (ASA) 81 mg DAILY NG 07/09/17 09:00 07/19/17 18:59 07/18/17 10:08 Chlorhexidine Gluconate (Kati-Hex 2%) 1 applic Q24H TOPIC 07/08/17 20:00 07/19/17 19:59 07/18/17 21:04 Dextrose (Dextrose 50%) STAT PRN IV Hypoglycemia 07/09/17 13:00 07/19/17 12:59 Epoetin Russ (Procrit (for ESRD on dialysis)) 7,000 units MON-MON-MON SUBQ 07/19/17 21:00 08/18/17 20:59 Fluconazole (Diflucan) 100 mg Q24H GT 07/15/17 22:00 08/24/17 21:59 07/18/17 10:08 Insulin Aspart (NovoLOG) EVERY 6 HOURS SUBQ 07/08/17 18:00 07/19/17 17:59 07/19/17 05:42 Iron Sucrose 100 mg/Sodium Chloride 60 ml @ 240 mls/hr BEDTIME IV 07/19/17 21:00 07/23/17 21:14 Lansoprazole (Prevacid) 30 mg DAILY GT 07/09/17 09:00 07/19/17 08:59 07/18/17 10:08 Metoprolol Tartrate (Lopressor) 50 mg Q12HR ORAL 07/16/17 21:00 08/15/17 20:59 07/18/17 14:03 Sodium Chloride 550 ml @ 500 mls/hr Q1H6M PRN IV sbp<90 during hd 07/08/17 16:00 07/27/17 11:08 PEG MARTINEZ Jul 19, 2017 08:50
[2017-07-19] MEDS: Aspirin Baby 81mg NG SCH (08:52)
[2017-07-19] MEDS: Metoprolol Tartrate 50mg tab ORAL SCH ×2 (08:53→20:53)
--- NOTE | 2017-07-19 11:59 | Infectious Diseases Prog Note ---
"Assessment/Plan Assessment/Plan antibiotics :po amoxicillin, fluconazole A 1. MRSA sepsis s/p catheter removal 2. septic shock 3. respiratory failure resolved 4. renal failure 5. MRSA | enterobacter pneumonia 6. leucocytosis resolved 7. 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 continue po amoxicillin, fluconazole 36 more days 2. will follow up cultures Subjective ROS Limited/Unobtainable: Yes Allergies: Coded Allergies: No Known Allergies (Unverified , 06/18/17) Objective Vital Signs Last 24 Hour Vital Signs Date Time Temp Pulse Resp B/P (MAP) Pulse Ox O2 Delivery O2 Flow Rate FiO2 07/19/17 08:53 96 115/68 07/19/17 08:00 97.5 96 18 115/68 100 Nasal Cannula 2.0 07/19/17 08:00 98 07/19/17 07:10 97 Nasal Cannula 2.0 28 07/19/17 07:10 Nasal Cannula 2.0 28 07/19/17 04:00 97.9 97 38 104/60 100 Nasal Cannula 2.0 07/19/17 03:59 103 07/19/17 00:00 98.4 106 25 98/48 100 Nasal Cannula 2.0 07/18/17 23:40 103 07/18/17 21:00 99 94/53 07/18/17 20:42 99 07/18/17 20:00 98.1 99 30 94/53 100 Nasal Cannula 2.0 07/18/17 19:10 Nasal Cannula 2.0 28 07/18/17 19:10 98 Nasal Cannula 2.0 28 07/18/17 16:00 96 07/18/17 16:00 96.6 93 20 101/57 97 Nasal Cannula 2.0 07/18/17 14:03 104 114/63 07/18/17 12:00 98.2 104 18 114/63 96 Height (Feet): 5 Height (Inches): 8.00 Weight (Pounds): 174 Respiratory/Chest: lungs clear Cardiovascular: normal rate, regular rhythm, no gallop/murmur Abdomen: soft, non tender, other - GT Extremities: no edema, other - left subclavian ARTIS SANTIAGO Jul 19, 2017 11:59"
[2017-07-19 12:00] VITALS: BP 112/78
--- NOTE | 2017-07-19 12:48 | Wound Nurse Progress Note ---
Wound RN Progress Note Wound Consult Reassessment- no further deterioration present to admitted wounds , continue wound care as recommended.effective. no new wounds present follow orders for left ankle pressure ulcer stage 4. #1 Sacrococcygeal stage 4 extending to left and right buttock pressure ulcer- no further deterioration present. - no change in size however noted increase in granulation tissue present current wound care is effective, wound bed 60%PINK,40%YELLOW, #2 Left lateral malleolus stage IV pressure ulcer- -no further deterioration present 90% wound bed remains pink,10%yellow/ white , noted undermining at 9:00 0.5cm no further deterioration or change in size however wound bed noted with increase in granulation tissue present. #3 Right heel resolving unstageable pressure ulcer- resolved. #4 Perineal Partial thickness erosion- continue to keep clean and dry. #5 Left 1st metatarsal DTI pressure ulcer- remains as DTI. intact no change dry intact, continue to keep dry #6 Right lateral mid foot DTI pressure ulcer-remains as DTI.intact.no change dry intact, continue to keep dry #7 dry flaky skin on upper buttock by wound,-resolved. #8 left heel intact scar tissue Recommendation -Local wound care per protocol -Keep clean and dry -Turn and reposition -Optimize nutrition -Low air loss mattress -Offload both heels -Heel protector on both heels -Avoid shear and friction. -provide moisturizer to dry skin. -Assess and f/u accordingly for any changes of condition to skin noted ALEJANDRO FLETCHER Jul 19, 2017 12:48
[2017-07-19] MEDS: Albuterol/Ipratropium 3ml neb HHN SCH ×2 (12:49→19:42)
[2017-07-19 16:00] VITALS: BP 105/58
[2017-07-19 20:00] VITALS: BP 102/52
[2017-07-19] MEDS: Iron Sucrose 100 MG in NS 55 ML IV SCH (20:52)
[2017-07-19] MEDS: Fluconazole 100mg tab GT SCH (20:56)
[2017-07-19] MEDS ORDERED: Epogen (for ESRD on dialysis) SUBQ SCH (21:00)
--- NOTE | 2017-07-19 21:28 | General Progress Note ---
Assessment/Plan Assessment/Plan Assessment - Dysphagia - s/p PEG - OBS - abnormal LFT --> Hepatitis C (+) - renal failure - Anemia - CVA Recommendations continue TF - Elevate HOB - Monitor labs - GT care - D/C planning Subjective Allergies: Coded Allergies: No Known Allergies (Unverified , 06/18/17) Subjective No events overnight tolerating TF minimally interactive d/w support staff Objective Last 24 Hour Vital Signs Date Time Temp Pulse Resp B/P (MAP) Pulse Ox O2 Delivery O2 Flow Rate FiO2 07/19/17 20:53 98 102/52 07/19/17 19:51 109 20 100 Nasal Cannula 2.0 28 07/19/17 19:43 106 20 99 Nasal Cannula 2.0 28 07/19/17 19:43 28 07/19/17 19:42 99 Nasal Cannula 2.0 28 07/19/17 19:42 Nasal Cannula 2.0 28 07/19/17 16:00 96.8 102 26 105/58 100 Nasal Cannula 2.0 07/19/17 16:00 103 07/19/17 13:22 106 26 100 Nasal Cannula 2.0 28 07/19/17 13:21 28 07/19/17 12:51 97 30 100 Nasal Cannula 2.0 28 07/19/17 12:49 95 30 07/19/17 12:00 97.5 97 18 112/78 100 Nasal Cannula 2.0 07/19/17 12:00 100 07/19/17 08:53 96 115/68 07/19/17 08:00 97.5 96 18 115/68 100 Nasal Cannula 2.0 07/19/17 08:00 98 07/19/17 07:10 97 Nasal Cannula 2.0 28 07/19/17 07:10 Nasal Cannula 2.0 28 07/19/17 04:00 97.9 97 38 104/60 100 Nasal Cannula 2.0 07/19/17 03:59 103 07/19/17 00:00 98.4 106 25 98/48 100 Nasal Cannula 2.0 07/18/17 23:40 103 Intake and Output 07/18/17 07/19/17 19:00 07:00 Intake Total 460 ml 460 ml Output Total 3000 ml Balance -2540 ml 460 ml Intake Free Water 100 ml 100 ml Tube Feeding 360 ml 360 ml Hemodialysis UF 3000 ml # Bowel Movements 1 1 Height (Feet): 5 Height (Inches): 8.00 Weight (Pounds): 174 Objective Debilitated AA man NCAT supple Chest:coarse BS RR , tachy abd soft ND NT, (+) GT no edema OBS, contractures MONIKA SMITH Jul 19, 2017 21:28
[2017-07-20] VITALS: BP 115/69
[2017-07-20] MEDS: Albuterol/Ipratropium 3ml neb HHN SCH ×4 (01:18→18:39)
[2017-07-20 04:00] VITALS: BP 115/71
--- NOTE | 2017-07-20 04:02 | Progress Note ---
DATE: 07/19/2017 CARDIOLOGY PROGRESS NOTE SUBJECTIVE: The patient is tolerating feedings by new G-tube. He is poorly responsive. He is still on hemodialysis three times a week. OBJECTIVE: VITAL SIGNS: Blood pressure 115/68, pulse 96, and respirations 16. LUNGS: Coarse breath sounds. Scattered rhonchi. HEART: Regular rhythm and rate. Normal S1, S2. ABDOMEN: Soft. G-tube intact. EXTREMITIES: No edema. IMPRESSION: 1. Slow progress. 2. Multiorgan system failure, now improving to baseline. 3. DNR appropriate. PLAN: 1. Discharge planning in process. 2. Medications reviewed and reconciled and care plan updated. Gurdeep Harvey M.D. DR: ROMAIN JOB#: [id number] CC:
[2017-07-20] MEDS: NovoLOG Insulin Flexpen SUBQ SCH ×3 (05:29→17:45)
[2017-07-20 08:00] VITALS: BP 117/74
--- NOTE | 2017-07-20 08:09 | General Progress Note ---
Assessment/Plan Problem List: (1) Catheter-related bloodstream infection ICD Codes: T80.211A - Bloodstream infection due to central venous catheter, initial encounter SNOMED: 492090400 (2) Renal failure ICD Codes: N19 - Unspecified kidney failure SNOMED: 99410523 (3) Septic shock ICD Codes: A41.9 - Sepsis, unspecified organism; R65.21 - Severe sepsis with septic shock SNOMED: 20104074 (4) Respiratory failure ICD Codes: J96.90 - Respiratory failure, unspecified, unspecified whether with hypoxia or hypercapnia SNOMED: 765185809 (5) Malnutrition of moderate degree ICD Codes: E44.0 - Moderate protein-calorie malnutrition SNOMED: 729165024 (6) End-stage renal disease ICD Codes: N18.6 - End stage renal disease SNOMED: 79942011 (7) Healthcare-associated pneumonia ICD Codes: J18.9 - Pneumonia, unspecified organism SNOMED: 315710735 Status: stable, progressing Assessment/Plan cont iv abx per id HD as tolerated resp rx feeds per gi dvt/stress ulcer prophylaxis reordered monitor h/h epo/iron dc planning in process dnr Subjective ROS Limited/Unobtainable: Yes Constitutional: Reports: malaise, weakness HEENT: Reports: no symptoms Cardiovascular: Reports: no symptoms Respiratory: Reports: no symptoms Gastrointestinal/Abdominal: Reports: difficulty swallowing Genitourinary: Reports: no symptoms Neurologic/Psychiatric: Reports: pre-existing deficit Endocrine: Reports: no symptoms Hematologic/Lymphatic: Reports: no symptoms Allergies: Coded Allergies: No Known Allergies (Unverified , 06/18/17) All Systems: reviewed and negative except above Subjective no events. s/p uncomplicated gt placement. tolerating feeds. remains poorly responsive at baseline. minimal congestion. tolerating feeds looking for placement. HD scheduled for today ` Objective Last 24 Hour Vital Signs Date Time Temp Pulse Resp B/P (MAP) Pulse Ox O2 Delivery O2 Flow Rate FiO2 07/20/17 07:07 110 22 96 Nasal Cannula 2.0 28 07/20/17 07:05 Nasal Cannula 2.0 28 07/20/17 07:05 96 Nasal Cannula 2.0 28 07/20/17 07:03 107 24 96 Nasal Cannula 2.0 28 07/20/17 04:05 105 07/20/17 04:00 97.9 103 29 115/71 100 Nasal Cannula 2.0 07/20/17 01:27 108 20 99 Nasal Cannula 2.0 28 07/20/17 01:18 108 20 99 Nasal Cannula 2.0 28 07/20/17 01:18 28 07/20/17 00:03 104 07/20/17 00:00 98.1 107 16 115/69 99 Nasal Cannula 2.0 07/19/17 20:53 98 102/52 07/19/17 20:18 104 07/19/17 20:00 98.1 105 27 102/52 96 Nasal Cannula 2.0 07/19/17 19:51 109 20 100 Nasal Cannula 2.0 28 07/19/17 19:43 106 20 99 Nasal Cannula 2.0 28 07/19/17 19:43 28 07/19/17 19:42 99 Nasal Cannula 2.0 28 07/19/17 19:42 Nasal Cannula 2.0 28 07/19/17 16:00 96.8 102 26 105/58 100 Nasal Cannula 2.0 07/19/17 16:00 103 07/19/17 13:22 106 26 100 Nasal Cannula 2.0 28 07/19/17 13:21 28 07/19/17 12:51 97 30 100 Nasal Cannula 2.0 28 07/19/17 12:49 95 30 07/19/17 12:00 97.5 97 18 112/78 100 Nasal Cannula 2.0 07/19/17 12:00 100 07/19/17 08:53 96 115/68 Intake and Output 07/19/17 07/20/17 19:00 07:00 Intake Total 510 ml 470 ml Output Total 30 ml 250 ml Balance 480 ml 220 ml Intake Free Water 150 ml 50 ml IV Total 60 ml Tube Feeding 360 ml 360 ml Output Urine Total 30 ml 250 ml # Bowel Movements 3 1 Height (Feet): 5 Height (Inches): 8.00 Weight (Pounds): 175 Objective General Appearance: WD/WN, alert, confused Neck: supple Cardiovascular: regular rhythm Respiratory/Chest: chest wall non-tender, few rhonchi, normal breath sounds, no respiratory distress Abdomen: normal bowel sounds, non tender, soft, no organomegaly, no mass Edema: no edema noted Arm (L), no edema noted Arm (R), no edema noted Leg (L), no edema noted Leg (R), no edema noted Pedal (L), no edema noted Pedal (R), no edema noted Generalized Neurologic: more alert, aphasia KEENA BRANDT Jul 20, 2017 08:09
[2017-07-20] MEDS: Aspirin Baby 81mg GT SCH (08:52)
[2017-07-20] MEDS: Heparin 5000 units/ml inj SUBQ SCH ×2 (08:52→21:16)
--- NOTE | 2017-07-20 11:43 | Infectious Diseases Prog Note ---
Assessment/Plan Assessment/Plan A 1. MRSA sepsis s/p catheter removal 2. septic shock resolved 3. respiratory failure 4. renal failure, ESRD 5. staph aureus , Enterobacter pneumonia 6. osteomyelitis of left ankle P 1. continue Amoxicillin & Fluconazole X 35 days Subjective ROS Limited/Unobtainable: Yes Respiratory: Reports: dry cough Allergies: Coded Allergies: No Known Allergies (Unverified , 06/18/17) Objective Vital Signs Last 24 Hour Vital Signs Date Time Temp Pulse Resp B/P (MAP) Pulse Ox O2 Delivery O2 Flow Rate FiO2 07/20/17 08:00 97.2 106 22 117/74 100 Nasal Cannula 2.0 07/20/17 08:00 107 07/20/17 07:07 110 22 96 Nasal Cannula 2.0 28 07/20/17 07:05 Nasal Cannula 2.0 28 07/20/17 07:05 96 Nasal Cannula 2.0 28 07/20/17 07:03 107 24 96 Nasal Cannula 2.0 28 07/20/17 04:05 105 07/20/17 04:00 97.9 103 29 115/71 100 Nasal Cannula 2.0 07/20/17 01:27 108 20 99 Nasal Cannula 2.0 28 07/20/17 01:18 108 20 99 Nasal Cannula 2.0 28 07/20/17 01:18 28 07/20/17 00:03 104 07/20/17 00:00 98.1 107 16 115/69 99 Nasal Cannula 2.0 07/19/17 20:53 98 102/52 07/19/17 20:18 104 07/19/17 20:00 98.1 105 27 102/52 96 Nasal Cannula 2.0 07/19/17 19:51 109 20 100 Nasal Cannula 2.0 28 07/19/17 19:43 106 20 99 Nasal Cannula 2.0 28 07/19/17 19:43 28 07/19/17 19:42 99 Nasal Cannula 2.0 28 07/19/17 19:42 Nasal Cannula 2.0 28 07/19/17 16:00 96.8 102 26 105/58 100 Nasal Cannula 2.0 07/19/17 16:00 103 07/19/17 13:22 106 26 100 Nasal Cannula 2.0 28 07/19/17 13:21 28 07/19/17 12:51 97 30 100 Nasal Cannula 2.0 28 07/19/17 12:49 95 30 07/19/17 12:00 97.5 97 18 112/78 100 Nasal Cannula 2.0 07/19/17 12:00 100 Height (Feet): 5 Height (Inches): 8.00 Weight (Pounds): 175 General Appearance: no acute distress Respiratory/Chest: lungs clear Cardiovascular: tachycardia Abdomen: soft, non tender, other - GT feeding Neurologic/Psychiatric: aphasia, other - awake Current Medications Medications (Trade) Dose Ordered Sig/Jaime Route PRN Reason Start Time Stop Time Status Last Admin Dose Admin Albuterol/ Ipratropium (Albuterol/ Ipratropium) 3 ml Q6HRT HHN 07/19/17 13:00 07/24/17 12:59 07/20/17 07:02 Amoxicillin (Amoxil) 500 mg Q24H GT 07/15/17 22:00 08/24/17 23:59 07/19/17 20:55 Aspirin (ASA) 81 mg DAILY GT 07/20/17 09:00 08/19/17 08:59 07/20/17 08:52 Dextrose (Dextrose 50%) STAT PRN IV Hypoglycemia 07/19/17 17:00 08/18/17 16:59 Epoetin Russ (Procrit (for ESRD on dialysis)) 7,000 units MON-MON-MON SUBQ 07/19/17 21:00 08/18/17 20:59 07/19/17 20:54 Fluconazole (Diflucan) 100 mg Q24H GT 07/15/17 22:00 08/24/17 21:59 07/19/17 20:56 Heparin Sodium (Porcine) (Heparin 5000 units/ml) 5,000 units EVERY 12 HOURS SUBQ 07/20/17 09:00 08/19/17 08:59 07/20/17 08:52 Insulin Aspart (NovoLOG) Q6H SUBQ 07/19/17 18:00 08/18/17 17:59 07/20/17 11:34 Iron Sucrose 100 mg/Sodium Chloride 60 ml @ 240 mls/hr BEDTIME IV 07/19/17 21:00 07/23/17 21:14 07/19/17 20:52 Lansoprazole (Prevacid) 30 mg DAILY GT 07/20/17 09:00 08/19/17 08:59 07/20/17 08:52 Metoprolol Tartrate (Lopressor) 50 mg Q12HR ORAL 07/16/17 21:00 08/15/17 20:59 07/19/17 08:53 Sodium Chloride 550 ml @ 500 mls/hr Q1H6M PRN IV sbp<90 during hd 07/08/17 16:00 07/27/17 11:08 ZAIRA ROBLES Jul 20, 2017 11:43
[2017-07-20 12:00] VITALS: BP 124/76
--- NOTE | 2017-07-20 14:15 | Nephrology Progress Note ---
Assessment/Plan Problem List: (1) Healthcare-associated pneumonia (2) Malnutrition of moderate degree (3) End-stage renal disease (4) Respiratory failure (5) Septic shock (6) Osteomyelitis (7) Catheter-related bloodstream infection (8) Anemia Plan , meds reviewed for eskd,hypotension-better mrsa sepsis, hd 07/20 seen on hd, tpa for poor cath flow, , eval for osteo, dc plan d/w dr espino Subjective ROS Limited/Unobtainable: Yes Objective Objective Last 24 Hour Vital Signs Date Time Temp Pulse Resp B/P (MAP) Pulse Ox O2 Delivery O2 Flow Rate FiO2 07/20/17 12:00 97.2 105 22 124/76 98 Nasal Cannula 2.0 07/20/17 12:00 Nasal Cannula 2.0 07/20/17 12:00 105 07/20/17 08:00 97.2 106 22 117/74 100 Nasal Cannula 2.0 07/20/17 08:00 107 07/20/17 07:07 110 22 96 Nasal Cannula 2.0 28 07/20/17 07:05 Nasal Cannula 2.0 28 07/20/17 07:05 96 Nasal Cannula 2.0 28 07/20/17 07:03 107 24 96 Nasal Cannula 2.0 28 07/20/17 04:05 105 07/20/17 04:00 97.9 103 29 115/71 100 Nasal Cannula 2.0 07/20/17 01:27 108 20 99 Nasal Cannula 2.0 28 07/20/17 01:18 108 20 99 Nasal Cannula 2.0 28 07/20/17 01:18 28 07/20/17 00:03 104 07/20/17 00:00 98.1 107 16 115/69 99 Nasal Cannula 2.0 07/19/17 20:53 98 102/52 07/19/17 20:18 104 07/19/17 20:00 98.1 105 27 102/52 96 Nasal Cannula 2.0 07/19/17 19:51 109 20 100 Nasal Cannula 2.0 28 07/19/17 19:43 106 20 99 Nasal Cannula 2.0 28 07/19/17 19:43 28 07/19/17 19:42 99 Nasal Cannula 2.0 28 07/19/17 19:42 Nasal Cannula 2.0 28 07/19/17 16:00 96.8 102 26 105/58 100 Nasal Cannula 2.0 07/19/17 16:00 103 Intake and Output 07/19/17 07/20/17 19:00 07:00 Intake Total 510 ml 470 ml Output Total 30 ml 250 ml Balance 480 ml 220 ml Intake Free Water 150 ml 50 ml IV Total 60 ml Tube Feeding 360 ml 360 ml Output Urine Total 30 ml 250 ml # Bowel Movements 3 1 Height (Feet): 5 Height (Inches): 8.00 Weight (Pounds): 175 General Appearance: no apparent distress, confused EENT: normal ENT inspection Neck: normal alignment Cardiovascular: normal rate, regularly irregular Respiratory/Chest: lungs clear Abdomen: non tender Extremities: trace edema Neurologic: disoriented LEONORA HUI Jul 20, 2017 14:15
[2017-07-20] MEDS ORDERED: Cathflo Alteplase 2mg Inj INJ ONE (14:30)
[2017-07-20 16:00] VITALS: BP 102/59
--- NOTE | 2017-07-20 17:15 | Progress Note ---
DATE: 07/20/2017 CARDIOLOGY PROGRESS NOTE SUBJECTIVE: The patient remains on hemodialysis per regular 3 times per week schedule. He is tolerating G-tube feedings. No shortness of breath noted. He continues to require respiratory hygiene. OBJECTIVE: VITAL SIGNS: Blood pressure is 117/74, pulse 106, respirations 22, and afebrile. LUNGS: Coarse breath sounds. Scattered rhonchi. HEART: Regular rhythm. Rapid rate. Normal S1, S2. ABDOMEN: Soft. EXTREMITIES: Trace edema. LABORATORY DATA: No new laboratory studies today. IMPRESSION: 1. Status post respiratory failure. 2. Staphylococcus aureus sepsis. 3. Recovered shock. 4. End-stage renal disease. 5. Acute myocardial infarction. 6. Acute on chronic diastolic congestive heart failure. 7. Persistent sinus tachycardia. PLAN: 1. Antimicrobials. 2. Anti-platelet therapy with aspirin. 3. Respiratory hygiene. 4. Advance beta-lory. 5. Insulin titration. 6. Discharge planning. Gurdeep Harvey M.D. DR: ROMAIN JOB#: [id number] CC:
[2017-07-20 20:00] VITALS: BP 118/68
[2017-07-20] MEDS: Fluconazole 100mg tab GT SCH (21:13)
[2017-07-20] MEDS: Iron Sucrose 100 MG in NS 55 ML IV SCH (21:17)
[2017-07-20] MEDS ORDERED: Metoprolol Tartrate 50mg tab ONE (21:19)
[2017-07-20] MEDS: Metoprolol Tartrate 50mg tab ORAL SCH (21:20)
[2017-07-20] MEDS: Metoprolol 25mg tab GT SCH (21:22)
--- NOTE | 2017-07-20 22:06 | General Progress Note ---
Assessment/Plan Assessment/Plan Assessment - Dysphagia - s/p PEG - OBS - abnormal LFT --> Hepatitis C (+) - renal failure - Anemia - CVA Recommendations continue TF - Elevate HOB - Monitor labs - GT care - D/C planning Subjective Allergies: Coded Allergies: No Known Allergies (Unverified , 06/18/17) Subjective No events overnight tolerating TF awake, looks at MD d/w staff technologist Objective Last 24 Hour Vital Signs Date Time Temp Pulse Resp B/P (MAP) Pulse Ox O2 Delivery O2 Flow Rate FiO2 07/20/17 21:22 105 118/68 07/20/17 21:20 105 118/68 07/20/17 20:00 97.4 105 22 118/68 95 Nasal Cannula 2.0 07/20/17 19:15 103 07/20/17 18:30 Nasal Cannula 2.0 28 07/20/17 18:30 104 20 100 Nasal Cannula 2.0 28 07/20/17 18:30 100 Nasal Cannula 2.0 28 07/20/17 18:25 103 20 100 Nasal Cannula 2.0 28 07/20/17 16:00 107 07/20/17 16:00 97.2 110 26 102/59 98 Nasal Cannula 2.0 07/20/17 13:40 107 22 100 Nasal Cannula 2.0 28 07/20/17 13:27 106 22 100 Nasal Cannula 2.0 28 07/20/17 12:00 97.2 105 22 124/76 98 Nasal Cannula 2.0 07/20/17 12:00 Nasal Cannula 2.0 07/20/17 12:00 105 07/20/17 08:00 97.2 106 22 117/74 100 Nasal Cannula 2.0 07/20/17 08:00 107 07/20/17 07:07 110 22 96 Nasal Cannula 2.0 28 07/20/17 07:05 Nasal Cannula 2.0 28 07/20/17 07:05 96 Nasal Cannula 2.0 28 07/20/17 07:03 107 24 96 Nasal Cannula 2.0 28 07/20/17 04:05 105 07/20/17 04:00 97.9 103 29 115/71 100 Nasal Cannula 2.0 07/20/17 01:27 108 20 99 Nasal Cannula 2.0 28 07/20/17 01:18 108 20 99 Nasal Cannula 2.0 28 07/20/17 01:18 28 07/20/17 00:03 104 07/20/17 00:00 98.1 107 16 115/69 99 Nasal Cannula 2.0 Intake and Output 07/19/17 07/20/17 19:00 07:00 Intake Total 510 ml 470 ml Output Total 30 ml 250 ml Balance 480 ml 220 ml Intake Free Water 150 ml 50 ml IV Total 60 ml Tube Feeding 360 ml 360 ml Output Urine Total 30 ml 250 ml # Bowel Movements 3 1 Height (Feet): 5 Height (Inches): 8.00 Weight (Pounds): 175 Objective Debilitated AA man NCAT supple Chest:coarse BS RR , tachy abd soft ND NT, (+) GT no edema OBS, contractures MONIKA SMITH Jul 20, 2017 22:06
[2017-07-21] VITALS: BP 106/63
[2017-07-21] MEDS: Albuterol/Ipratropium 3ml neb HHN SCH ×4 (01:09→19:01)
[2017-07-21 04:00] VITALS: BP 130/76
[2017-07-21] MEDS: NovoLOG Insulin Flexpen SUBQ SCH ×4 (06:00→17:59)
[2017-07-21 08:00] VITALS: BP 127/78
[2017-07-21] MEDS: Aspirin Baby 81mg GT SCH (08:09)
[2017-07-21] MEDS: Metoprolol 25mg tab GT SCH (08:09)
[2017-07-21] MEDS: Heparin 5000 units/ml inj SUBQ SCH (08:11)
--- NOTE | 2017-07-21 09:28 | General Progress Note ---
Assessment/Plan Problem List: (1) Catheter-related bloodstream infection ICD Codes: T80.211A - Bloodstream infection due to central venous catheter, initial encounter SNOMED: 840052206 (2) Renal failure ICD Codes: N19 - Unspecified kidney failure SNOMED: 85034362 (3) Septic shock ICD Codes: A41.9 - Sepsis, unspecified organism; R65.21 - Severe sepsis with septic shock SNOMED: 66529765 (4) Respiratory failure ICD Codes: J96.90 - Respiratory failure, unspecified, unspecified whether with hypoxia or hypercapnia SNOMED: 527846797 (5) Malnutrition of moderate degree ICD Codes: E44.0 - Moderate protein-calorie malnutrition SNOMED: 143036952 (6) End-stage renal disease ICD Codes: N18.6 - End stage renal disease SNOMED: 26740118 (7) Healthcare-associated pneumonia ICD Codes: J18.9 - Pneumonia, unspecified organism SNOMED: 465769780 Status: stable, progressing Assessment/Plan cont iv abx per id HD as tolerated resp rx feeds per gi dvt/stress ulcer prophylaxis reordered monitor h/h epo/iron dc planning in process dnr Subjective ROS Limited/Unobtainable: Yes Constitutional: Reports: malaise, weakness HEENT: Reports: no symptoms Cardiovascular: Reports: no symptoms Respiratory: Reports: no symptoms Gastrointestinal/Abdominal: Reports: difficulty swallowing Genitourinary: Reports: no symptoms Neurologic/Psychiatric: Reports: pre-existing deficit Endocrine: Reports: no symptoms Hematologic/Lymphatic: Reports: no symptoms Allergies: Coded Allergies: No Known Allergies (Unverified , 06/18/17) All Systems: reviewed and negative except above Subjective no events. w/o complaints. no sob. no events. ` Objective Last 24 Hour Vital Signs Date Time Temp Pulse Resp B/P (MAP) Pulse Ox O2 Delivery O2 Flow Rate FiO2 07/21/17 08:09 96 127/78 07/21/17 08:00 97.6 96 38 127/78 91 Nasal Cannula 2.0 07/21/17 07:20 91 21 100 Nasal Cannula 2.0 28 07/21/17 07:09 Nasal Cannula 2.0 28 07/21/17 07:09 96 Nasal Cannula 2.0 28 07/21/17 07:09 91 24 96 Nasal Cannula 2.0 28 07/21/17 04:00 97.2 88 23 130/76 96 Nasal Cannula 2.0 07/21/17 03:39 87 07/21/17 00:50 83 20 100 Nasal Cannula 2.0 28 07/21/17 00:45 82 20 100 Nasal Cannula 2.0 28 07/21/17 00:00 97.0 83 25 106/63 99 Nasal Cannula 2.0 07/20/17 23:44 81 07/20/17 21:22 105 118/68 07/20/17 21:20 105 118/68 07/20/17 20:00 97.4 105 22 118/68 95 Nasal Cannula 2.0 07/20/17 19:15 103 07/20/17 18:30 Nasal Cannula 2.0 28 07/20/17 18:30 104 20 100 Nasal Cannula 2.0 28 07/20/17 18:30 100 Nasal Cannula 2.0 28 07/20/17 18:25 103 20 100 Nasal Cannula 2.0 28 07/20/17 16:00 107 07/20/17 16:00 97.2 110 26 102/59 98 Nasal Cannula 2.0 07/20/17 13:40 107 22 100 Nasal Cannula 2.0 28 07/20/17 13:27 106 22 100 Nasal Cannula 2.0 28 07/20/17 12:00 97.2 105 22 124/76 98 Nasal Cannula 2.0 07/20/17 12:00 Nasal Cannula 2.0 07/20/17 12:00 105 Intake and Output 07/20/17 07/21/17 19:00 07:00 Intake Total 480 ml 470 ml Output Total 1000 ml 150 ml Balance -520 ml 320 ml Intake Free Water 150 ml 50 ml IV Total 60 ml Tube Feeding 330 ml 360 ml Output Urine Total 150 ml Hemodialysis UF 1000 ml # Bowel Movements 4 1 Height (Feet): 5 Height (Inches): 8.00 Weight (Pounds): 179 Objective General Appearance: WD/WN, alert, confused Neck: supple Cardiovascular: regular rhythm Respiratory/Chest: chest wall non-tender, few rhonchi, normal breath sounds, no respiratory distress Abdomen: normal bowel sounds, non tender, soft, no organomegaly, no mass Edema: no edema noted Arm (L), no edema noted Arm (R), no edema noted Leg (L), no edema noted Leg (R), no edema noted Pedal (L), no edema noted Pedal (R), no edema noted Generalized Neurologic: more alert, aphasia KEENA BRANDT Jul 21, 2017 09:28
[2017-07-21] MEDS ORDERED: NS 500ML ONE ×2 (10:55→19:59)
[2017-07-21 12:00] VITALS: BP 113/35
--- NOTE | 2017-07-21 12:07 | Infectious Diseases Prog Note ---
"Assessment/Plan Assessment/Plan antibiotics :po amoxicillin, fluconazole A 1. MRSA sepsis s/p catheter removal 2. septic shock 3. respiratory failure resolved 4. renal failure 5. MRSA | enterobacter pneumonia 6. leucocytosis resolved 7. 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 hepatitis C P 1. continue po amoxicillin, fluconazole 34 more days 2. will follow up cultures Subjective ROS Limited/Unobtainable: Yes Allergies: Coded Allergies: No Known Allergies (Unverified , 06/18/17) Objective Vital Signs Last 24 Hour Vital Signs Date Time Temp Pulse Resp B/P (MAP) Pulse Ox O2 Delivery O2 Flow Rate FiO2 07/21/17 09:58 94 07/21/17 08:09 96 127/78 07/21/17 08:00 97.6 96 38 127/78 91 Nasal Cannula 2.0 07/21/17 07:20 91 21 100 Nasal Cannula 2.0 28 07/21/17 07:09 Nasal Cannula 2.0 28 07/21/17 07:09 96 Nasal Cannula 2.0 28 07/21/17 07:09 91 24 96 Nasal Cannula 2.0 28 07/21/17 04:00 97.2 88 23 130/76 96 Nasal Cannula 2.0 07/21/17 03:39 87 07/21/17 00:50 83 20 100 Nasal Cannula 2.0 28 07/21/17 00:45 82 20 100 Nasal Cannula 2.0 28 07/21/17 00:00 97.0 83 25 106/63 99 Nasal Cannula 2.0 07/20/17 23:44 81 07/20/17 21:22 105 118/68 07/20/17 21:20 105 118/68 07/20/17 20:00 97.4 105 22 118/68 95 Nasal Cannula 2.0 07/20/17 19:15 103 07/20/17 18:30 Nasal Cannula 2.0 28 07/20/17 18:30 104 20 100 Nasal Cannula 2.0 28 07/20/17 18:30 100 Nasal Cannula 2.0 28 07/20/17 18:25 103 20 100 Nasal Cannula 2.0 28 07/20/17 16:00 107 07/20/17 16:00 97.2 110 26 102/59 98 Nasal Cannula 2.0 07/20/17 13:40 107 22 100 Nasal Cannula 2.0 28 07/20/17 13:27 106 22 100 Nasal Cannula 2.0 28 Height (Feet): 5 Height (Inches): 8.00 Weight (Pounds): 179 Respiratory/Chest: lungs clear Cardiovascular: normal rate, regular rhythm, no gallop/murmur Abdomen: soft, non tender Extremities: no edema, other - left subclavian ARTIS SANTIAGO Jul 21, 2017 12:07"
[2017-07-21 16:00] VITALS: BP 94/49
--- NOTE | 2017-07-21 16:28 | Nephrology Progress Note ---
Assessment/Plan Problem List: (1) Healthcare-associated pneumonia (2) Malnutrition of moderate degree (3) End-stage renal disease (4) Respiratory failure (5) Septic shock (6) Osteomyelitis (7) Catheter-related bloodstream infection (8) Anemia Plan , meds reviewed for eskd,hypotension-better mrsa sepsis, hd 07/20 seen on hd, tpa for poor cath flow, , eval for osteo, dc plan d/w dr espino Subjective ROS Limited/Unobtainable: Yes Objective Objective Last 24 Hour Vital Signs Date Time Temp Pulse Resp B/P (MAP) Pulse Ox O2 Delivery O2 Flow Rate FiO2 07/21/17 12:43 95 36 96 Nasal Cannula 2.0 28 07/21/17 12:31 91 32 96 Nasal Cannula 2.0 28 07/21/17 12:00 97.6 92 40 113/35 97 Nasal Cannula 2.0 07/21/17 12:00 93 07/21/17 09:58 94 07/21/17 08:09 96 127/78 07/21/17 08:00 97.6 96 38 127/78 91 Nasal Cannula 2.0 07/21/17 07:20 91 21 100 Nasal Cannula 2.0 28 07/21/17 07:09 Nasal Cannula 2.0 28 07/21/17 07:09 96 Nasal Cannula 2.0 28 07/21/17 07:09 91 24 96 Nasal Cannula 2.0 28 07/21/17 04:00 97.2 88 23 130/76 96 Nasal Cannula 2.0 07/21/17 03:39 87 07/21/17 00:50 83 20 100 Nasal Cannula 2.0 28 07/21/17 00:45 82 20 100 Nasal Cannula 2.0 28 07/21/17 00:00 97.0 83 25 106/63 99 Nasal Cannula 2.0 07/20/17 23:44 81 07/20/17 21:22 105 118/68 07/20/17 21:20 105 118/68 07/20/17 20:00 97.4 105 22 118/68 95 Nasal Cannula 2.0 07/20/17 19:15 103 07/20/17 18:30 Nasal Cannula 2.0 28 07/20/17 18:30 104 20 100 Nasal Cannula 2.0 28 07/20/17 18:30 100 Nasal Cannula 2.0 28 07/20/17 18:25 103 20 100 Nasal Cannula 2.0 28 Intake and Output 07/20/17 07/21/17 19:00 07:00 Intake Total 480 ml 470 ml Output Total 1000 ml 150 ml Balance -520 ml 320 ml Intake Free Water 150 ml 50 ml IV Total 60 ml Tube Feeding 330 ml 360 ml Output Urine Total 150 ml Hemodialysis UF 1000 ml # Bowel Movements 4 1 Height (Feet): 5 Height (Inches): 8.00 Weight (Pounds): 179 General Appearance: lethargic EENT: normal ENT inspection Neck: normal alignment Cardiovascular: normal rate Respiratory/Chest: rhonchi - bilaterally Abdomen: non tender, soft Extremities: trace edema Neurologic: disoriented LEONOAR HUI Jul 21, 2017 16:28
[2017-07-21] MEDS ORDERED: Tubing IV Secondary IV ONE (19:59)
[2017-07-21 20:00] VITALS: BP 117/69
--- NOTE | 2017-07-21 22:31 | General Progress Note ---
Assessment/Plan Assessment/Plan Assessment - Dysphagia - s/p PEG - OBS - abnormal LFT --> Hepatitis C (+) - renal failure - Anemia - CVA Recommendations continue TF - Elevate HOB - Monitor labs - GT care - D/C planning Subjective Allergies: Coded Allergies: No Known Allergies (Unverified , 06/18/17) Subjective No events overnight tolerating TF awake, looks at MD d/w staff appraiser for discharge today Objective Last 24 Hour Vital Signs Date Time Temp Pulse Resp B/P (MAP) Pulse Ox O2 Delivery O2 Flow Rate FiO2 07/21/17 20:00 92 07/21/17 20:00 97.9 92 20 117/69 96 Nasal Cannula 2.0 07/21/17 19:10 88 32 100 Nasal Cannula 2.0 28 07/21/17 19:03 97 Nasal Cannula 2.0 28 07/21/17 19:03 Nasal Cannula 2.0 28 07/21/17 19:01 91 28 99 Nasal Cannula 2.0 28 07/21/17 16:00 97.4 94 34 94/49 95 Nasal Cannula 2.0 07/21/17 16:00 94 07/21/17 12:43 95 36 96 Nasal Cannula 2.0 28 07/21/17 12:31 91 32 96 Nasal Cannula 2.0 28 07/21/17 12:00 97.6 92 40 113/35 97 Nasal Cannula 2.0 07/21/17 12:00 93 07/21/17 09:58 94 07/21/17 08:09 96 127/78 07/21/17 08:00 97.6 96 38 127/78 91 Nasal Cannula 2.0 07/21/17 07:20 91 21 100 Nasal Cannula 2.0 28 07/21/17 07:09 Nasal Cannula 2.0 28 07/21/17 07:09 96 Nasal Cannula 2.0 28 07/21/17 07:09 91 24 96 Nasal Cannula 2.0 28 07/21/17 04:00 97.2 88 23 130/76 96 Nasal Cannula 2.0 07/21/17 03:39 87 07/21/17 00:50 83 20 100 Nasal Cannula 2.0 28 07/21/17 00:45 82 20 100 Nasal Cannula 2.0 28 07/21/17 00:00 97.0 83 25 106/63 99 Nasal Cannula 2.0 07/20/17 23:44 81 Intake and Output 07/20/17 07/21/17 19:00 07:00 Intake Total 480 ml 470 ml Output Total 1000 ml 150 ml Balance -520 ml 320 ml Intake Free Water 150 ml 50 ml IV Total 60 ml Tube Feeding 330 ml 360 ml Output Urine Total 150 ml Hemodialysis UF 1000 ml # Bowel Movements 4 1 Height (Feet): 5 Height (Inches): 8.00 Weight (Pounds): 179 Objective Debilitated AA man NCAT supple Chest:coarse BS RR , tachy abd soft ND NT, (+) GT no edema OBS, contractures MONIKA SMITH Jul 21, 2017 22:31
--- NOTE | 2017-07-21 23:15 | Progress Note ---
DATE: 07/21/2017 CARDIOLOGY PROGRESS NOTE SUBJECTIVE: The patient without respiratory distress. Discharge planning noted for today. The patient is tolerating nutrition by NG tube. The patient remains on hemodialysis three times a week. PHYSICAL EXAMINATION: VITAL SIGNS: Blood pressure 127/78, pulse 96, respiratory rate 21 and afebrile. NECK: Supple. LUNGS: Coarse breath sounds. No wheezing. CARDIAC: Regular rhythm and rate. Normal S1 and S2 with a fourth heart sound. ABDOMEN: Soft. Catheter site without erythema or drainage. EXTREMITIES: No edema. LABORATORY AND DIAGNOSTIC DATA: No new laboratory studies available. IMPRESSION: 1. Status post respiratory failure. 2. Status post acute myocardial infarction. 3. Status post sepsis with shock. 4. End-stage renal disease. 5. Severe protein-calorie malnutrition. 6. Dysphagia. 7. Status post gastrostomy tube. 8. Advanced dementia. 9. Acute on chronic diastolic congestive heart failure, clinically compensated. PLAN: 1. Stable for subacute care. 2. Discharge medication regimen reviewed. 3. Three times a week hemodialysis with ultrafiltration to continue as an outpatient. 4. Do Not Resuscitate in place. Gurdeep Harvey M.D. DR: TIFFANIE JOB#: [id number] CC:
--- NOTE | 2017-07-25 09:15 | Discharge Summary ---
Discharge Summary Hospital Course Date of Admission Jun 18, 2017 at 10:07 Date of Discharge Jul 21, 2017 at 20:00 Admitting Diagnosis respiratory failure, septic shock HPI Jordan Garber is a 82 year old male who was admitted on Jun 18, 2017 at 10:07 for Respiratory Failure, Septic Shock Hospital Course dc summary #[id number] Discharge Condition Upon Discharge: stable, other - overall prognosis is poor Discharge Disposition Patient was discharged to SNF Discharge Diagnoses: Discharge Instructions Discharge Instructions Special Instructions I have been assigned to complete a D/C Summary on this account. I was not involved in the patient management Samara Melendez NP (Vanchtein) Jul 25, 2017 09:15
--- NOTE | 2017-07-26 16:15 | Discharge Summary 2 SIG ---
DATE OF ADMISSION: 06/18/2017 DATE OF DISCHARGE: 07/21/2017 REASON FOR ADMISSION: 82-year-old male with past medical history significant for end-stage renal disease, type 2 diabetes mellitus, cerebrovascular accident with right hemiparesis, was sent from the long-term [facility] for evaluation due to the hypotension and respiratory distress. Upon presentation the patient was tachycardic, tachypneic, hypotensive on 100% non-rebreathing mask. The patient had severe dyspnea on arrival and required emergency oral intubation and initiation of mechanical ventilation. Marginal blood pressure was recorded at 60/40. The patient was given intravenous fluid challenge, however, blood pressure failed to respond to fluid challenge, and the patient subsequently required pressor for hemodynamic support. Central line was placed. Troponin - 0.111. CXR with evidence of pneumonia. Patient had on admission existing hemodialysis catheter. The patient admitted to ICU for further management with diagnoses of acute respiratory failure, hypoxia, healthcare associated pneumonia, dysphagia, shock, hypovolemia, sepsis,type 2 diabetes mellitus, cerebrovascular disease with dementia with history of cerebrovascular accident and right hemiparesis,and acute myocardial ischemia. HOSPITAL COURSE: The patient admitted to ICU. Initially ID, Nephrology, Cardiology and Pulmonary doctors followed the patient. The patient was initially on pressor for hemodynamic support. Ventilator support was provided. Pulmonary toilet was provided. The patient started on empiric antibiotics, which subsequently optimized per ID based on culture. Blood culture revealed MRSA. Influenza screen was negative. Sputum culture revealed MRSA. Sacral wound culture revealed E. coli, Proteus and MRSA and left ankle wound culture revealed MRSA and Morganella. The patient had a left femoral hemodialysis catheter, which was removed, and catheter tip culture revealed MRSA. ID specialist directed antibiotic regimen. Followup blood culture revealed no growth after five days. Repeated sputum culture showed Enterobacter. Time Study Technician closely followed the patient. Hemodialysis was arranged. Renal parameters and electrolytes were closely monitored. Nephrotoxics were avoided. New non-tunneled hemodialysis catheter was placed , which was repalced on 07/12/2017 with tunneled [id number]. Last hemodialysis was done on 07/20/2017. TPA given at that time for poor catheter flow. Continue hemodialysis three times a week as outpatient. Diesel Scoop Operator followed the patient. The patient was followed up with chest x- ray and ABGs. The patient eventually was able to be weaned first from pressors and then from the ventilator. Supplemental oxygen provided as needed to keep pulse oximetry above 92%. Pulmonary toilet provided. Anodiser closely followed to ensure hemodynamic support and afterwards hemodynamic stability. The patient was noted to have elevated troponin initially -0.111 , then down to 0.093 and the next one- 0.803. Echocardiogram revealed ejection fraction of 45% to 50 % with global left ventricular hypokinesis, right ventricular systolic pressure of 24. Anodiser closely followed and diagnosed the patient with the acute myocardial infarction as well as the acute on chronic diastolic CHF, at this time compensated. The patient was on medical management with antiplatelet therapy with aspirin and beta lory. Beta-lory dose was adjusted. Initial sinus tachycardia resolved, likely was secondary to sepsis and shock. The patient demonstrated evidence of dysphagia, and GI consult was requested for placement of gastrostomy tube. The patient subsequently undergone EGD with G-tube placement. Strict aspiration and reflux precautions were maintained. Tube feeding started in the morning after procedure. G-tube site care provided. The patient was able to tolerate tube feeding. Noted abnormal LFTs. GI closely followed. LFT trending down, likely secondary to shock liver as well as history of hepatitis C. Mangle Tender Cloth seen the patient for the left lateral ankle chronic ulcer. There was concern of possible osteomyelitis. The patient subsequently undergone initially x-ray of the left ankle, which revealed no evidence of osteomyelitis. Subsequently, MRI of the left ankle revealed findings suspicious of mild acute osteomyelitis of left ankle lateral malleolus. According to ID specialist, the patient will need six weeks of antibiotics from the initial treatment. According to the ID, the patient will need 34 more days of amoxicillin and fluconazole. Blood sugar was managed with sliding scale of insulin. Insulin titrated to keep blood sugar under control. Hemoglobin and hematocrit were closely monitored. The patient required transfusion of one unit of packed red blood cells. Anemia workup was consistent with anemia of iron deficiency and anemia of chronic disease. The patient was on Epogen and iron. Counts were closely monitored. Seafood Service Team Member recommendation implemented. Wound care was provided for left ankle as per housing and residence life director recommendation and for sacrococcyx decubitus and multiple DTI as well as the right heel un-stageable pressure ulcer as per wound care nurse recommendation. The patient recovered from sepsis and shock, however, his condition was guarded and overall prognosis was poor according to all consultants who were involved in care of this patient. The patient with DNR/DNI status. The patient was stable for transfer to long-term facility. FINAL DIAGNOSES: 1. Sepsis with shock, resolved. 2. Acute hypoxemic respiratory failure requiring intubation, resolved, status post extubation. 3. Sepsis with Methicillin-resistant Staphylococcus aureus bacteremia secondary to infected line (status post catheter removal), -present on admission 4. End-stage renal disease, on hemodialysis. 5. Methicillin-resistant Staphylococcus aureus, Enterobacter pneumonia (status post treatment). 6. Left ankle acute osteomyelitis with vancomycin resistant enterococcus, Taisha. 7. Status post acute myocardial infarction. 8. Acute on chronic diastolic congestive heart failure (compensated). 9. Abnormal liver function tests. 10. Hepatitis C. 11. Dysphagia. 12. Status post on 07/18/2017 esophagogastroduodenoscopy with gastrostomy tube placement. 13. Severe protein-calorie malnutrition. 14. Anemia of chronic disease and iron deficiency. 15. Diabetes mellitus. 16. Advanced dementia. 17. Cerebrovascular accident with right hemiparesis. 18. Sacrococcyx un-stageable decubitus ulcer, present on admission. 19. 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 20. Right heel un-stageable pressure ulcer, present on admission. 21. Multiply deep tissue injury pressure ulcers, present on admission. DISCHARGE MEDICATIONS: List of medication was sent to the long-term facility. Continue p.o. amoxicillin and fluconazole for duration as ordered. DISCHARGE INSTRUCTIONS: The patient discharged to long-term facility. FOLLOWUP: Followup with the medical doctor at the facility. The patient with DNR/DNI status. Overall prognosis poor. Gurdeep Harvey M.D. I have been assigned to dictate discharge summary on this account and I was not involved in the patient's management. Samara TorresEllis HospitalAnna, N.P. DR: MELISSA JOB#: [id number] CC: AURELIO
== END 2017-07-21 20:00 | DRG 721 ==
LOC: EDBD 09:15 → EMR 10:00 → ICU 10:07 → EDBEDREQ 11:31 → 2W 07-08 15:30
PROC: 5A1955Z Respiratory Ventilation, Greater than 96 Consecutive Hours (ICD-10-PCS; principal; 2017-06-18)
PROC: 06HM33Z Insertion of Infusion Device into Right Femoral Vein, Percutaneous Approach (ICD-10-PCS; principal; 2017-06-18)
PROC: 0BH17EZ Insertion of Endotracheal Airway into Trachea, Via Natural or Artificial Opening (ICD-10-PCS; principal; 2017-06-18)
PROC: 5A1D70Z Performance of Urinary Filtration, Intermittent, Less than 6 Hours Per Day (ICD-10-PCS; 2017-06-18)
PROC: B548ZZA Ultrasonography of Superior Vena Cava, Guidance (ICD-10-PCS; 2017-06-23)
PROC: 02HV33Z Insertion of Infusion Device into Superior Vena Cava, Percutaneous Approach (ICD-10-PCS; 2017-06-23)
PROC: B514ZZA Fluoroscopy of Left Jugular Veins, Guidance (ICD-10-PCS; 2017-07-12)
PROC: 0JH63XZ Insertion of Tunneled Vascular Access Device into Chest Subcutaneous Tissue and Fascia, Percutaneous Approach (ICD-10-PCS; 2017-07-12)
PROC: 05HN33Z Insertion of Infusion Device into Left Internal Jugular Vein, Percutaneous Approach (ICD-10-PCS; 2017-07-12)
PROC: 0DH63UZ Insertion of Feeding Device into Stomach, Percutaneous Approach (ICD-10-PCS; 2017-07-17)
DX: T80.211A Bloodstream infection due to central venous catheter, initial encounter (principal); A41.02 Sepsis due to Methicillin resistant Staphylococcus aureus; J96.01 Acute respiratory failure with hypoxia; R65.21 Severe sepsis with septic shock; I21.9 Acute myocardial infarction, unspecified; K72.00 Acute and subacute hepatic failure without coma; G92 Toxic encephalopathy; E43 Unspecified severe protein-calorie malnutrition; J15.212 Pneumonia due to Methicillin resistant Staphylococcus aureus; L89.154 Pressure ulcer of sacral region, stage 4; B37.89 Other sites of candidiasis; N18.6 End stage renal disease; E11.9 Type 2 diabetes mellitus without complications; R13.10 Dysphagia, unspecified; Z99.2 Dependence on renal dialysis; Z68.21 Body mass index [BMI] 21.0-21.9, adult; I69.951 Hemiplegia and hemiparesis following unspecified cerebrovascular disease affecting right dominant side; E86.1 Hypovolemia; F01.50 Vascular dementia, unspecified severity, without behavioral disturbance, psychotic disturbance, mood disturbance, and anxiety; B19.20 Unspecified viral hepatitis C without hepatic coma; L97.324 Non-pressure chronic ulcer of left ankle with necrosis of bone; M86.8X7 Other osteomyelitis, ankle and foot; I50.33 Acute on chronic diastolic (congestive) heart failure; I50.84 End stage heart failure; D64.9 Anemia, unspecified; I48.0 Paroxysmal atrial fibrillation; B95.2 Enterococcus as the cause of diseases classified elsewhere
CPT/HCPCS: 31500; 36415; 36569; 36600; 71010; 71045; 74018; 76000; 76705; 76937; 80048; 80053; 80202; 82248; 82533; 82550; 82553; 82728; 82803; 82962; 83540; 83550; 83605; 83690; 83735; 83880; 84100; 84443; 84484; 85007; 85025; 85610; 85730; 86705; 86709; 86710; 86803; 86850; 86900; 86901; 86920; 87040; 87070; 87081; 87181; 87205; 87340; 93005; 93306; 94002; 94003; 94150; 94640; 94664; 94760; J1815; J2250; J2370; J7620

== ENCOUNTER 2017-07-29 04:24 | Inpatient (IN) | payer MEDICAID, MEDICARE ==
[~2017-07-29] VITALS: Ht 182.9 cm; Wt 77.6 kg
[2017-07-29] VITALS (7 sets, daily range): BP systolic 88–111; BP diastolic 45–58
[~2017-07-29 04:24] MED LIST changes: +ACETAMINOPHEN325 M1 ORAL; -Lidocaine 1% MPF 10mg/ml 5ml ONE; +METOPROLOL TART25 MG ORAL; +MIRALAX17 G2 ORAL; +NEPHROVITE1 TAB ORAL; +PRO-STAT RENAL30 ML PO; +QUETIAPINE FUMA50 MG ORAL; +SENNA176 MG/5 M PO
[2017-07-29 05:11] LABS: BASOPHILS % (AUTO) 0.4 % (0.0-2.0); EOSINOPHILS % (AUTO) 0.6 % (0.0-3.0); HEMATOCRIT 29.1 % (42.0-52.0); HEMOGLOBIN 9.1 G/DL (14.2-18.0); LYMPHOCYTES % (AUTO) 12.7 % (20.0-45.0); MEAN CORPUSCULAR VOLUME 92 FL (80-99); MONOCYTES % (AUTO) 8.7 % (1.0-10.0); NEUTROPHILS % (AUTO) 77.6 % (45.0-75.0); PLATELET COUNT 457 K/UL (150-450); RED BLOOD COUNT 3.18 M/UL (4.70-6.10); RED CELL DISTRIBUTION WIDTH 19.3 % (11.6-14.8); WHITE BLOOD COUNT 15.4 K/UL (4.8-10.8)
[2017-07-29 05:33] LABS: ANION GAP 6 mmol/L (5-15); BLOOD UREA NITROGEN 43 mg/dL (7-18); CALCIUM 8.1 MG/DL (8.5-10.1); CARBON DIOXIDE 31 MMOL/L (21-32); CHLORIDE 99 MMOL/L (98-107); CREATININE 2.2 MG/DL (0.55-1.30); POTASSIUM 2.9 MMOL/L (3.5-5.1); SODIUM 136 MMOL/L (136-145)
[2017-07-29] MEDS ORDERED: ELIQUIS2.5 MG PO ×2 (05:54)
[2017-07-29] MEDS ORDERED: AMOXICILLIN500 MG GT (05:54)
[2017-07-29] MEDS ORDERED: NORCO 5-325 TA1 EACH ORAL (05:54)
[2017-07-29] MEDS ORDERED: ELIQUIS5 MG GT (05:54)
[2017-07-29] MEDS ORDERED: ASPIR 8181 MG GT (05:54)
[2017-07-29 05:56] LABS: ALANINE AMINOTRANSFERASE 41 U/L (12-78); ALBUMIN 1.3 G/DL (3.4-5.0); ALBUMIN/GLOBULIN RATIO 0.2 (1.0-2.7); ALKALINE PHOSPHATASE 310 U/L (46-116); ASPARTATE AMINO TRANSFERASE 77 U/L (15-37); BILIRUBIN,TOTAL 0.5 MG/DL (0.2-1.0); CKMB 2.7 NG/ML (0.0-3.6); CREATINE KINASE 587 U/L (26-308)
[2017-07-29] MEDS ORDERED: LANSOPRAZOLE30 MG GT (05:58)
[2017-07-29] MEDS ORDERED: HEPARIN SO5000 UNIT2 SUBQ (05:58)
[2017-07-29] MEDS ORDERED: DUONEB 0.5-3(2.53 ML HHN (05:58)
[2017-07-29] MEDS ORDERED: PROCRIT10000 UNIT SUBQ (05:58)
[2017-07-29] MEDS ORDERED: FLUCONAZOLE100 MG GT (05:58)
[2017-07-29] MEDS ORDERED: METOPROLOL TART50 MG GT (05:58)
[2017-07-29] MEDS ORDERED: Zosyn 3.375gm inj ONE (06:06)
[2017-07-29] MEDS ORDERED: Vancomycin 1 GM in D5W 275 ML IVPB ONE (06:15)
[2017-07-29] MEDS ORDERED: Piperacillin/Tazobactam 3.375 GM in NS 110 ML IVPB ONE (06:15)
[2017-07-29] MEDS ORDERED: Vancomycin 1gm inj IVPB ONE (06:59)
[2017-07-29] MEDS ORDERED: NS 275 ML ONE (07:00)
[2017-07-29 09:24] LABS: APPEARANCE,URINE VERY CLOUDY; BILIRUBIN, URINE NEGATIVE (NEGATIVE); GLUCOSE, URINE (UA) NEGATIVE (NEGATIVE); KETONES,URINE NEGATIVE (NEGATIVE); LEUKOCYTE ESTERASE ,URINE 3+ (NEGATIVE); NITRITE,URINE POSITIVE (NEGATIVE); PH,URINE 7 (4.5-8.0); PROTEIN,URINE 4+ (NEGATIVE); UROBILINOGEN,URINE NORMAL MG/DL (0.0-1.0)
--- NOTE | 2017-07-29 09:30 | General Progress Note ---
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 RENAL FAILURE IN NEED OF HEMODIALYSIS Subjective Allergies: Coded Allergies: No Known Allergies (Unverified , 06/18/17) Subjective patient has developed decreased mentation and was brought into [facility] Objective Last 24 Hour Vital Signs Date Time Temp Pulse Resp B/P (MAP) Pulse Ox O2 Delivery O2 Flow Rate FiO2 07/29/17 08:59 98 42 95 Facial 40 07/29/17 07:25 99 30 98 Facial 40 07/29/17 06:15 99 36 111/56 100 Bi-pap 40 07/29/17 05:33 108 37 100 Facial 40 07/29/17 05:22 40 07/29/17 04:57 108 37 Non-Rebreather 15.0 100 07/29/17 04:57 100.0 108 37 88/45 100 Non-Rebreather 15.0 07/29/17 04:33 100.0 108 37 88/45 100 Non-Rebreather 15.0 Intake and Output 07/28/17 07/29/17 19:00 07:00 Intake Total 0 ml Balance 0 ml Intake Oral 0 ml Laboratory Tests 07/29/17 04:30: White Blood Count 15.4H, Red Blood Count 3.18L, Hemoglobin 9.1L, Hematocrit 29.1L, Mean Corpuscular Volume 92, Mean Corpuscular Hemoglobin 28.7, Mean Corpuscular Hemoglobin Concent 31.3L, Red Cell Distribution Width 19.3H, Platelet Count 457H, Mean Platelet Volume 6.0L, Neutrophils (%) (Auto) 77.6H, Lymphocytes (%) (Auto) 12.7L, Monocytes (%) (Auto) 8.7, Eosinophils (%) (Auto) 0.6, Basophils (%) (Auto) 0.4, Sodium Level 136, Potassium Level 2.9L, Chloride Level 99, Carbon Dioxide Level 31, Anion Gap 6, Blood Urea Nitrogen 43H, Creatinine 2.2H, Estimat Glomerular Filtration Rate , Glucose Level 206H, Calcium Level 8.1L, Total Bilirubin 0.5, Aspartate Amino Transf (AST/SGOT) 77H, Alanine Aminotransferase (ALT/SGPT) 41, Alkaline Phosphatase 310H, Total Creatine Kinase 587H, Creatine Kinase MB 2.7, Creatine Kinase MB Relative Index 0.4, Troponin I 0.093H, Total Protein 7.3, Albumin 1.3L, Globulin 6.0, Albumin/ Globulin Ratio 0.2L 07/29/17 05:45: Urine Color [Pending], Urine Appearance [Pending], Urine pH [Pending], Urine Specific [place] [Pending], Urine Protein [Pending], Urine Glucose (UA) [Pending ], Urine Ketones [Pending], Urine Occult Blood [Pending], Urine Nitrite [Pending ], Urine Bilirubin [Pending], Urine Urobilinogen [Pending], Urine Leukocyte Esterase [Pending] Height (Feet): 6 Weight (Pounds): 160 General Appearance: lethargic - non bverbal on bipap Respiratory/Chest: decreased breath sounds Abdomen: non tender Jenise Warren MD Jul 29, 2017 09:30
[2017-07-29 09:34] LABS: COLOR,URINE YELLOW
--- NOTE | 2017-07-29 10:05 | Consultation ---
Consult Note Assessment/Plan Pt seen and examined full note will be dictated HD orders entered and talked to HD RN as well MARYAM ROBLES Jul 29, 2017 10:04
[2017-07-29] MEDS ORDERED: Albuterol/Ipratropium 3ml neb HHN PRN ×2 (10:15→14:00)
[2017-07-29] MEDS ORDERED: Miralax 17gm pkt ORAL PRN ×2 (10:15→14:00)
--- NOTE | 2017-07-29 10:51 | Diagnostic Imaging Report ---
Indication: Reason For Exam: SOB Technique: One view of the chest Comparison: 07/13/2017 Findings: Patient's chin obscures the upper mediastinum and right lung apex. Again demonstrated is a left chest tunneled dialysis catheter. The tip is now more horizontally oriented, could be within the azygos vein rather than superior vena cava. Alternatively, this could just be an artifact of kyphotic positioning. Bilateral pleural effusions are again demonstrated. The heart borders are obscured, heart size difficult to estimate. There is suggestion of increasing congestion Impression: Bilateral pleural effusions and interstitial edema, possibly increased since 07/13/2017 Possible suboptimal tip position of the tunnel dialysis catheter, versus positioning artifact. Correlate with catheter function.
--- NOTE | 2017-07-29 12:28 | Consultation ---
History of Present Illness General Date patient seen: Jul 29, 2017 Time patient seen: 12:29 Chief Complaint: Dyspnea/Respdistress Present Illness HPI 82 y/o M with hx of ESRD on HD, hep C, DM2, CVA with R hemiparesis, SNF resident presents to ED on 07/29 with respiratory distress. Placed on Bipap in the ED. also noted to have pus from bladder. Low grade fever Tm 100. Leukocytosis up to 15.4. u/a with significant pyuria. Given 1 dose of Vanco and Zosyn. Of note, patient recently admitted 06/18-07/21 for septic shock 2ry to MRSA bacteremia from Infected HD catheter, s/p removal and tx with IV Vancomycin ; MRSA and enterobacter PNA, left ankle ulcer with OM (Cx gre VRE and c.albicans; MRI of the left ankle revealed findings suspicious of mild acute osteomyelitisof left ankle lateral malleolus. )- He was sent home on PO Fluconazole and Augmentin to complete. HD cathter replaced on 07/12. -Bcx 06/18 4/4 MRSA, 06/19 2/2+; 06/27 neg x4 Allergies: Coded Allergies: No Known Allergies (Unverified , 06/18/17) Medication History Scheduled Amino Acids/Protein Hydrolys (Pro-Stat Renal Care Liquid Pkt), 60 ML PO TID, ( Reported) Amoxicillin* (Amoxil*), 500 MG GT EVERY 8 HOURS, (Reported) Apixaban (Eliquis), 2.5 MG PO BID, (Reported) Apixaban (Eliquis), 5 MG GT BID, (Reported) Aspirin* (Aspir 81*), 81 MG GT DAILY, (Reported) Epoetin Russ (Procrit), 7,000 UNIT SUBQ 3XW, (Reported) Fluconazole (Fluconazole), 100 MG GT DAILY, (Reported) Heparin Sod (Porcine) (Heparin Sodium*), 5,000 UNITS SUBQ EVERY 12 HOURS, ( Reported) Ipratropium/Albuterol Sulfate (DuoNeb 0.5-3(2.5)mg/3ml), 3 ML HHN Q6HR, ( Reported) Lansoprazole* (Lansoprazole*), 30 MG GT DAILY, (Reported) Metoprolol Tartrate* (Metoprolol Tartrate*), 25 MG ORAL EVERY 12 HOURS, ( Reported) Metoprolol Tartrate* (Metoprolol Tartrate*), 75 MG GT EVERY 12 HOURS, (Reported) Polyethylene Glycol 3350* (Miralax*), 17 GM ORAL DAILY, (Reported) Quetiapine Fumarate* (Quetiapine Fumarate*), 25 MG ORAL HS, (Reported) Vitamin B Cmplx/Vit C/Folic AC (Nephro-Makenzie Tablet), 1 TAB ORAL DAILY, (Reported ) Scheduled PRN Acetaminophen* (Acetaminophen 325MG Tablet*), 650 MG ORAL Q6H PRN for Mild Pain/ Temp > 100.5, (Reported) Hydrocodone Bit/Acetaminophen 5-325* ([place] 5-325*), 1 TAB ORAL DAILY PRN for For Pain, (Reported) Senna [place] Extract (Senna), 176 MG PO HS PRN for Constipation, (Reported) Miscellaneous Medications Apixaban (Eliquis), 2.5 MG PO, (Reported) Patient History Healthcare decision maker Resuscitation status Advanced Directive on File Review of Systems ROS Narrative unable to obtain Physical Exam Physical Exam Narrative General Appearance: lethargic - non bverbal on bipap Respiratory/Chest: decreased breath sounds Abdomen: non tender Skin: no rashes/lesions Last 24 Hour Vital Signs Date Time Temp Pulse Resp B/P (MAP) Pulse Ox O2 Delivery O2 Flow Rate FiO2 07/29/17 11:00 100.0 97 36 104/57 99 Bi-pap 15.0 40 07/29/17 10:42 93 48 94 Facial 40 07/29/17 09:30 97 36 104/57 99 Bi-pap 40 07/29/17 08:59 98 42 95 Facial 40 07/29/17 08:00 97 35 104/58 100 Bi-pap 40 07/29/17 07:25 99 30 98 Facial 40 07/29/17 06:15 99 36 111/56 100 Bi-pap 40 07/29/17 05:33 108 37 100 Facial 40 07/29/17 05:22 40 07/29/17 04:57 108 37 Non-Rebreather 15.0 100 07/29/17 04:57 100.0 108 37 88/45 100 Non-Rebreather 15.0 07/29/17 04:33 100.0 108 37 88/45 100 Non-Rebreather 15.0 Intake and Output 07/28/17 07/29/17 19:00 07:00 Intake Total 0 ml Balance 0 ml Intake Oral 0 ml Laboratory Tests Test 07/29/17 04:30 07/29/17 05:45 White Blood Count 15.4 K/UL (4.8-10.8) H Red Blood Count 3.18 M/UL (4.70-6.10) L Hemoglobin 9.1 G/DL (14.2-18.0) L Hematocrit 29.1 % (42.0-52.0) L Mean Corpuscular Volume 92 FL (80-99) Mean Corpuscular Hemoglobin 28.7 PG (27.0-31.0) Mean Corpuscular Hemoglobin Concent 31.3 G/DL (32.0-36.0) L Red Cell Distribution Width 19.3 % (11.6-14.8) H Platelet Count 457 K/UL (150-450) H Mean Platelet Volume 6.0 FL (6.5-10.1) L Neutrophils (%) (Auto) 77.6 % (45.0-75.0) H Lymphocytes (%) (Auto) 12.7 % (20.0-45.0) L Monocytes (%) (Auto) 8.7 % (1.0-10.0) Eosinophils (%) (Auto) 0.6 % (0.0-3.0) Basophils (%) (Auto) 0.4 % (0.0-2.0) Sodium Level 136 MMOL/L (136-145) Potassium Level 2.9 MMOL/L (3.5-5.1) L Chloride Level 99 MMOL/L (98-107) Carbon Dioxide Level 31 MMOL/L (21-32) Anion Gap 6 mmol/L (5-15) Blood Urea Nitrogen 43 mg/dL (7-18) H Creatinine 2.2 MG/DL (0.55-1.30) H Estimat Glomerular Filtration Rate mL/min (>60) Glucose Level 206 MG/DL (74-106) H Calcium Level 8.1 MG/DL (8.5-10.1) L Total Bilirubin 0.5 MG/DL (0.2-1.0) Aspartate Amino Transf (AST/SGOT) 77 U/L (15-37) H Alanine Aminotransferase (ALT/SGPT) 41 U/L (12-78) Alkaline Phosphatase 310 U/L (46-116) H Total Creatine Kinase 587 U/L (26-308) H Creatine Kinase MB 2.7 NG/ML (0.0-3.6) Creatine Kinase MB Relative Index 0.4 Troponin I 0.093 ng/mL (0.000-0.056) Total Protein 7.3 G/DL (6.4-8.2) Albumin 1.3 G/DL (3.4-5.0) L Globulin 6.0 g/dL Albumin/Globulin Ratio 0.2 (1.0-2.7) L Urine Color Yellow Urine Appearance Very cloudy Urine pH 7 (4.5-8.0) Urine Specific [place] 1.010 (1.005-1.035) Urine Protein 4+ (NEGATIVE) H Urine Glucose (UA) Negative (NEGATIVE) Urine Ketones Negative (NEGATIVE) Urine Occult Blood 5+ (NEGATIVE) H Urine Nitrite Positive (NEGATIVE) H Urine Bilirubin Negative (NEGATIVE) Urine Urobilinogen Normal MG/DL (0.0-1.0) Urine Leukocyte Esterase 3+ (NEGATIVE) H Urine RBC 5-10 /HPF (0 - 0) H Urine WBC Tntc /HPF (0 - 0) H Urine Squamous Epithelial Cells Few /LPF (NONE/OCC) Urine Bacteria Moderate /HPF (NONE) H Height (Feet): 6 Weight (Pounds): 160 Medications Current Medications Medications (Trade) Dose Ordered Sig/Jaime Route PRN Reason Start Time Stop Time Status Last Admin Dose Admin Acetaminophen (Tylenol) 650 mg Q4H PRN ORAL Fever 07/29/17 11:15 08/28/17 10:14 UNV Albuterol/ Ipratropium (Albuterol/ Ipratropium) 3 ml EVERY 4 HOURS PRN HHN Shortness of Breath 07/29/17 11:15 08/03/17 10:14 UNV Aspirin (Ecotrin) 81 mg DAILY ORAL 07/30/17 09:00 08/29/17 08:59 UNV Dextrose (Dextrose 50%) STAT PRN IV Hypoglycemia 07/29/17 11:15 08/28/17 10:14 UNV Heparin Sodium (Porcine) (Heparin 5000 units/ml) 5,000 units EVERY 12 HOURS SUBQ 07/29/17 21:00 08/28/17 20:59 UNV Heparin Sodium (Porcine) (Heparin Sod 1000 units/ml 10ml) 2,000 unit ONCE ONCE IV 07/30/17 10:00 07/30/17 10:01 UNV Metoprolol Tartrate (Lopressor) 25 mg EVERY 12 HOURS ORAL 07/29/17 21:00 08/28/17 20:59 UNV Ondansetron HCl (Zofran) 4 mg Q6H PRN IVP Nausea & Vomiting 07/29/17 11:15 08/28/17 10:14 UNV Polyethylene Glycol (Miralax) 17 gm DAILYPRN PRN ORAL Constipation 07/29/17 11:15 08/28/17 10:14 UNV Quetiapine Fumarate (SEROquel) 25 mg BEDTIME ORAL 07/29/17 21:00 08/28/17 20:59 UNV Sodium Chloride 1,000 ml @ 500 mls/hr Q2H PRN IVLG sbp<90 during hd 07/30/17 09:59 08/29/17 09:58 UNV Temazepam (Restoril) 15 mg HSPRN PRN ORAL Insomnia 07/29/17 11:15 08/05/17 10:14 UNV Vitamin A/Vitamin D (A & D Oint) 1 applic EVERY 12 HOURS TOPIC 07/29/17 21:00 08/28/17 20:59 UNV Assessment/Plan Assessment/Plan Abx: IV Vanco x1 07/29 Zosyn x1 07/29 Assessment: Sepsis, likely 2ry to UTI- r/o recurrence MRSA bacteremia- r/o influenza -u/a wbc tntc, nit +, leuk +3; ux p -CXR:Bilateral pleural effusions and interstitial edema, possibly increased since 07/13/2017 -Bcx p Low grade fevers/leukocytosis Acute resp failure on Bipap- possibly due to vol overload; r/o PNA Recent Septic shock 05/2017 2ry to MRSA bacteremia from infected catheter, MRSA and enterobacter PNA, s/p Rx -HD catheter replacement 07/12 -Bcx 06/18 4 MRSA, 06/19 2/2+; 06/27 neg x4 L ankle ulcer with possible OM, on Rx; end date 08/16 -wound cx VRE (S ampicillin), Taisha albicans -MRI of the left ankle revealed findings suspicious of mild acute osteomyelitisof left ankle lateral malleolus ESRD on HD hep C DM2 CVA with R hemiparesis SNF resident Plan: -Continue IV Vanco and Zosyn #1 pending cultures -monitor closely, if decompensation, switch Zosyn to Meropenem -f/u cx -check influenza -Monitor CBC/BMP, temperatures -wound care -aspiration precautions Thank you for this consultation. Will continue to follow along with you. Discussed with ORESTES. Mahi Marin M.D. Jul 29, 2017 12:28
--- NOTE | 2017-07-29 12:51 | Consultation ---
Consult Note Assessment/Plan Renal consult dictated # [id number] MARYAM ROBLES Jul 29, 2017 12:51
[2017-07-29] MEDS ORDERED: Piperacillin/Tazobactam 2.25 GM in D5W 55 ML IVPB SCH (15:00)
--- NOTE | 2017-07-29 15:52 | Cardiology Report ---
APPROVED REPORT EKG Measurement Heart [id number] Sinus tachycardia Left axis deviation Right bundle branch block Possible Lateral infarct, age undetermined Inferior infarct, age undetermined Abnormal ECG
[2017-07-29] MEDS ORDERED: Vancomycin 1250mg/D5W 250ml IVPB ONE (16:00)
--- NOTE | 2017-07-29 17:25 | History and Physical ---
History of Present Illness General Date patient seen: Jul 29, 2017 Time patient seen: 16:30 Reason for Hospitalization: Dyspnea/Respdistress Present Illness HPI 82 y/o male with PMH of ESRD on HD, hep C, DM2, CVA with R hemiparesis, SNF resident was sent to EDfor evaluation of respiratory distress. Patient was found to be tachycardic, tachypneic, hypotensive, with low grade fever Upon presentation on 100% NRM Subsequently was placed on Bipap Patient was noted pus from bladder. Patient was recently admitted for septic shock 2ry to MRSA bacteremia from infected HD catheter, s/p removal and tx with IV Vancomycin ; MRSA and Enterobacter PNA, left ankle ulcer with OM . Patient was discharged on oral Fluconazole and Augmentin to complete the course . HD catheter was replaced on 07/12. In ED WBC-15,4; troponin -0.093, next-0.109 CXR with bilateral pleural effusion and interstitial edema HH-9.1/29.1 patient was pancultured, started on abx and admitted to [facility] for further management Allergies: Coded Allergies: No Known Allergies (Unverified , 06/18/17) Medication History Scheduled Amoxicillin* (Amoxil*), 500 MG GT EVERY 8 HOURS, (Reported) Apixaban (Eliquis), 2.5 MG PO BID, (Reported) Apixaban (Eliquis), 5 MG GT BID, (Reported) Aspirin* (Aspir 81*), 81 MG GT DAILY, (Reported) Epoetin Russ (Procrit), 7,000 UNIT SUBQ 3XW, (Reported) Fluconazole (Fluconazole), 100 MG GT DAILY, (Reported) Heparin Sod (Porcine) (Heparin Sodium*), 5,000 UNITS SUBQ EVERY 12 HOURS, ( Reported) Ipratropium/Albuterol Sulfate (DuoNeb 0.5-3(2.5)mg/3ml), 3 ML HHN Q6HR, ( Reported) Lansoprazole* (Lansoprazole*), 30 MG GT DAILY, (Reported) Metoprolol Tartrate* (Metoprolol Tartrate*), 25 MG ORAL EVERY 12 HOURS, ( Reported) Metoprolol Tartrate* (Metoprolol Tartrate*), 75 MG GT EVERY 12 HOURS, (Reported) Quetiapine Fumarate* (Quetiapine Fumarate*), 25 MG ORAL HS, (Reported) Scheduled PRN Hydrocodone Bit/Acetaminophen 5-325* ([place] 5-325*), 1 TAB ORAL DAILY PRN for For Pain, (Reported) Patient History Healthcare decision maker Resuscitation status Advanced Directive on File Past Medical/Surgical History Past Medical/Surgical History: (1) End-stage renal disease (2) Malnutrition of moderate degree (3) Catheter-related bloodstream infection (4) Anemia (5) Osteomyelitis Review of Systems ROS Narrative unable to obtain due to BiPAP and dementia Physical Exam General Appearance: no apparent distress, alert - poorly reponsive4 AA male in NAD , other - on BiPAP 10/5/ FiO2 40% Lines, tubes and drains: peripheral HEENT: normocephalic, atraumatic Neck: non-tender, supple Respiratory/Chest: lungs clear - with moderate air excange , no respiratory distress Cardiovascular/Chest: normal rate - SR n tele Abdomen: normal bowel sounds, non tender, soft, feeding tube - G tube Extremities: other - Right hemiparesis, Skin Exam: warm/dry, other - left ankle ulcer Neurologic: abnormal gait, alert Last 24 Hour Vital Signs Date Time Temp Pulse Resp B/P (MAP) Pulse Ox O2 Delivery O2 Flow Rate FiO2 07/29/17 16:00 97.4 83 35 95/49 99 Non-Rebreather 15.0 07/29/17 16:00 40 07/29/17 15:30 Bi-pap 40 07/29/17 14:39 90 45 97 Facial 40 07/29/17 12:40 85 34 98 Facial 40 07/29/17 12:25 Bi-pap 40 07/29/17 12:00 40 18 12:00 95.9 92 34 95/51 99 Non-Rebreather 15.0 07/29/17 12:00 89 18 11:00 100.0 97 36 104/57 99 Bi-pap 15.0 40 18 10:42 93 48 94 Facial 40 18 09:30 97 36 104/57 99 Bi-pap 40 18 08:59 98 42 95 Facial 40 07/29/17 08:00 97 35 104/58 100 Bi-pap 40 07/29/17 07:25 99 30 98 Facial 40 18 06:15 99 36 111/56 100 Bi-pap 40 07/29/17 05:33 108 37 100 Facial 40 07/29/17 05:22 40 07/29/17 04:57 108 37 Non-Rebreather 15.0 100 07/29/17 04:57 100.0 108 37 88/45 100 Non-Rebreather 15.0 07/29/17 04:33 100.0 108 37 88/45 100 Non-Rebreather 15.0 Intake and Output 07/28/17 07/29/17 19:00 07:00 Intake Total 0 ml Balance 0 ml Intake Oral 0 ml Laboratory Tests Test 07/29/17 04:30 07/29/17 05:45 07/29/17 12:47 White Blood Count 15.4 K/UL (4.8-10.8) H Red Blood Count 3.18 M/UL (4.70-6.10) L Hemoglobin 9.1 G/DL (14.2-18.0) L Hematocrit 29.1 % (42.0-52.0) L Mean Corpuscular Volume 92 FL (80-99) Mean Corpuscular Hemoglobin 28.7 PG (27.0-31.0) Mean Corpuscular Hemoglobin Concent 31.3 G/DL (32.0-36.0) L Red Cell Distribution Width 19.3 % (11.6-14.8) H Platelet Count 457 K/UL (150-450) H Mean Platelet Volume 6.0 FL (6.5-10.1) L Neutrophils (%) (Auto) 77.6 % (45.0-75.0) H Lymphocytes (%) (Auto) 12.7 % (20.0-45.0) L Monocytes (%) (Auto) 8.7 % (1.0-10.0) Eosinophils (%) (Auto) 0.6 % (0.0-3.0) Basophils (%) (Auto) 0.4 % (0.0-2.0) Sodium Level 136 MMOL/L (136-145) Potassium Level 2.9 MMOL/L (3.5-5.1) L Chloride Level 99 MMOL/L (98-107) Carbon Dioxide Level 31 MMOL/L (21-32) Anion Gap 6 mmol/L (5-15) Blood Urea Nitrogen 43 mg/dL (7-18) H Creatinine 2.2 MG/DL (0.55-1.30) H Estimat Glomerular Filtration Rate mL/min (>60) Glucose Level 206 MG/DL (74-106) H Calcium Level 8.1 MG/DL (8.5-10.1) L Total Bilirubin 0.5 MG/DL (0.2-1.0) Aspartate Amino Transf (AST/SGOT) 77 U/L (15-37) H Alanine Aminotransferase (ALT/SGPT) 41 U/L (12-78) Alkaline Phosphatase 310 U/L (46-116) H Total Creatine Kinase 587 U/L (26-308) H Creatine Kinase MB 2.7 NG/ML (0.0-3.6) Creatine Kinase MB Relative Index 0.4 Troponin I 0.093 ng/mL (0.000-0.056) 0.109 ng/mL (0.000-0.056) Total Protein 7.3 G/DL (6.4-8.2) Albumin 1.3 G/DL (3.4-5.0) L Globulin 6.0 g/dL Albumin/Globulin Ratio 0.2 (1.0-2.7) L Urine Color Yellow Urine Appearance Very cloudy Urine pH 7 (4.5-8.0) Urine Specific [place] 1.010 (1.005-1.035) Urine Protein 4+ (NEGATIVE) H Urine Glucose (UA) Negative (NEGATIVE) Urine Ketones Negative (NEGATIVE) Urine Occult Blood 5+ (NEGATIVE) H Urine Nitrite Positive (NEGATIVE) H Urine Bilirubin Negative (NEGATIVE) Urine Urobilinogen Normal MG/DL (0.0-1.0) Urine Leukocyte Esterase 3+ (NEGATIVE) H Urine RBC 5-10 /HPF (0 - 0) H Urine WBC Tntc /HPF (0 - 0) H Urine Squamous Epithelial Cells Few /LPF (NONE/OCC) Urine Bacteria Moderate /HPF (NONE) H Height (Feet): 6 Weight (Pounds): 160 Medications Current Medications Medications (Trade) Dose Ordered Sig/Jaime Route PRN Reason Start Time Stop Time Status Last Admin Dose Admin Acetaminophen (Tylenol) 650 mg Q4H PRN ORAL Fever 07/29/17 14:00 08/28/17 13:59 Albuterol/ Ipratropium (Albuterol/ Ipratropium) 3 ml Q4H PRN HHN Shortness of Breath 07/29/17 14:00 08/03/17 13:59 Aspirin (Ecotrin) 81 mg DAILY ORAL 07/30/17 09:00 08/29/17 08:59 Dextrose (Dextrose 50%) STAT PRN IV Hypoglycemia 07/29/17 14:00 08/28/17 13:59 Heparin Sodium (Porcine) (Heparin 5000 units/ml) 5,000 units EVERY 12 HOURS SUBQ 07/29/17 21:00 08/28/17 20:59 Heparin Sodium (Porcine) (Heparin Sod 1000 units/ml 10ml) 2,000 unit ONCE IV 07/30/17 06:00 07/30/17 23:59 Metoprolol Tartrate (Lopressor) 25 mg EVERY 12 HOURS ORAL 07/29/17 21:00 08/28/17 20:59 Ondansetron HCl (Zofran) 4 mg Q6H PRN IVP Nausea & Vomiting 07/29/17 14:00 08/28/17 13:59 Piperacillin Sod/ Tazobactam Sod 2.25 gm/Sodium Chloride 55 ml @ 110 mls/hr Q8H IVPB 07/29/17 16:00 08/05/17 23:59 Polyethylene Glycol (Miralax) 17 gm DAILYPRN PRN ORAL Constipation 07/29/17 14:00 08/28/17 13:59 Quetiapine Fumarate (SEROquel) 25 mg BEDTIME ORAL 07/29/17 21:00 08/28/17 20:59 Sodium Chloride 1,000 ml @ 500 mls/hr Q2H PRN IVLG sbp<90 during hd 07/30/17 06:00 07/30/17 23:59 Temazepam (Restoril) 15 mg HSPRN PRN ORAL Insomnia 07/29/17 14:00 08/05/17 13:59 Vancomycin HCl (Vanco rx to dose) 1 ea DAILY PRN MISC Per rx protocol 07/29/17 13:00 08/28/17 12:59 Vancomycin HCl/ Dextrose 250 ml @ 166.667 mls/hr ONCE ONCE IVPB 07/29/17 16:00 07/29/17 17:29 Vitamin A/Vitamin D (A & D Oint) 1 applic EVERY 12 HOURS TOPIC 07/29/17 21:00 3/5/18 20:59 Assessment/Plan Assessment/Plan ASSESSMENT acute hypoxemic RF requiring BiPAP sepsis hypotension UTI recent hx of catheter associated bacteremia and sepsis OM elevated troponin ESRD, on HD anemia of chronic disease dysphagia, G tube L ankle ulcer with recent dx of osteomyelitis DM CVA with R hemiparesis hepatitis C [facility] OF C[facility] BiPAP titrate settings as needed and try to wean empiric abx, fup with cx ID follows monitor BP closely , possible early shock troponin in am, , levels flat, likely 2 to ESRD, however will get cardio eval ECHO HD as per nephro, s/p just completed monitor renal parameters, lytes and correct as needed strict aspiration precautions, GT feeding, monitor tolerance, dietary eval monitor count, transfuse prn, wound nurse eval and wound care as per wound nurse recs DVT prophylaxis GAURANG johnson with SS of insulin case discussed and evaluated by supervising physician Al (Silver),Samara SKY Jul 29, 2017 17:25
--- NOTE | 2017-07-29 17:41 | Consultation ---
Consult Note Consult Note Cardiology for Dr. Mccollum Full note dictated #[id number] DENIZ SWEET Jul 29, 2017 17:41
[2017-07-29] MEDS ORDERED: Heparin 5000 units/ml inj IV ONE (18:15)
[2017-07-29 18:21] LABS: HEMOGLOBIN 9.4 G/DL (14.2-18.0); MEAN CORPUSCULAR VOLUME 91 FL (80-99); PLATELET COUNT 406 K/UL (150-450); RED CELL DISTRIBUTION WIDTH 19.2 % (11.6-14.8); WHITE BLOOD COUNT 18.1 K/UL (4.8-10.8)
[2017-07-29] MEDS ORDERED: Heparin 25,000u/D5W 500ml 500 ML IV SCH (18:30)
[2017-07-29] MEDS: Piperacillin/Tazobactam 2.25 GM in NS 55 ML IVPB SCH ×2 (19:08→23:19)
[2017-07-29] MEDS: Metoprolol 25mg tab ORAL SCH (20:36)
[2017-07-29] MEDS: Vitamin A&D Oint 2oz Tube TOPIC SCH (20:37)
[2017-07-29] MEDS ORDERED: Metoprolol 25mg tab ORAL SCH ×2 (21:00)
[2017-07-29] MEDS ORDERED: Heparin 5000 units/ml inj SUBQ SCH ×2 (21:00)
[2017-07-30] VITALS: BP 110/50
--- NOTE | 2017-07-30 01:41 | Emergency Room Report ---
History of Present Illness General Chief Complaint: Dyspnea/Respdistress Source: Medical Record, EMS Present Illness HPI This is an 81-year-old male coming from a alf. He has multiple problem. Recently admitted for septic shock. He presents with chief complaint of respiratory distress. Onset tonight. No fever or chills. No nausea vomiting. He was hypoxic on arrival. Allergies: Coded Allergies: No Known Allergies (Unverified , 06/18/17) Patient History Past Medical History: see triage record, old chart reviewed Past Surgical History: other Pertinent Family History: none Social History: Denies: smoking Immunizations: other Reviewed Nursing Documentation: PMH: Agreed, PSxH: Agreed Nursing Documentation-PMH Past Medical History Deferred: Pt Cognitively Impaired Past Medical History: No History, Except For Hx Cardiac Problems: Yes - non stemi PR, pleural effusion Hx Hypertension: Yes Hx Diabetes: Yes Hx Cancer: No Hx Gastrointestinal Problems: No Hx Dialysis: Yes - M-W-F History Of Psychiatric Problem: No - Bacteremia Hx Neurological Problems: Yes - dementia Hx Dementia: Yes Review of Systems Respiratory: Reports: cough, shortness of breath All Other Systems: limited - Limited secondary to condition Physical Exam Vital Signs Date Time Temp Pulse Resp B/P (MAP) Pulse Ox O2 Delivery O2 Flow Rate FiO2 07/29/17 04:33 100.0 108 37 88/45 100 Non-Rebreather 15.0 07/29/17 04:57 100 vitals with fever, hypoxia, hypotension Sp02 EP Interpretation: abnormal General Appearance: moderate distress, Chronically Ill Head: normocephalic, atraumatic Eyes: bilateral eye PERRL, bilateral eye EOMI ENT: hearing grossly normal, normal pharynx Neck: full range of motion, supple, no meningismus Respiratory: chest non-tender, respiratory distress, decreased breath sounds, accessory muscle use, rales Cardiovascular #1: regular rate, rhythm, no murmur Gastrointestinal: normal bowel sounds, non tender, no mass, no organomegaly, no bruit, non-distended Musculoskeletal: back normal, other - Contracted Psychiatric: mood/affect normal Skin: warm/dry Procedures Critical Care Time Critical Care Time Critical care is mandated in this patient who presented with respiratory distress and septic. Patient require my urgent intervention to attenuate the risks of metabolic collapse which may lead to cardiovascular collapse and . Critical care time is 35 minutes excluding any reportable procedure. Critical care time included evaluation, multiple reevaluation, looking at old charts, interpreting laboratory and diagnostic data, discussing case with patient and family and consultants, and charting. Medical Decision Making Diagnostic Impression: Primary Impression: Dyspnea Qualified Codes: R06.00 - Dyspnea, unspecified Additional Impressions: CHF (congestive heart failure) Qualified Codes: I50.9 - Heart failure, unspecified Sepsis Qualified Codes: A41.9 - Sepsis, unspecified organism UTI (urinary tract infection) Qualified Codes: N30.00 - Acute cystitis without hematuria Hypokalemia ACS (acute coronary syndrome) ER Course Patient presents with respiratory distress. He appear to be septic and fluid overloaded. We'll need dialysis. Also has very cloudy purulent urine. Antibiotic started. Prognosis poor. Will admit for further workup. Lab Results Impression labs with multiple abnormalities. EKG Diagnostic Results Rate: tachycardiac Rhythm: NSR ST Segments: other - Nonspecific ST changes Rhythm Strip Diag. Results EP Interpretation: yes Rate: 100 Rhythm: NSR Chest X-Ray Diagnostic Results Chest X-Ray Diagnostic Results : Chest X-Ray Ordered: Yes # of Views/Limited/Complete: 1 View Indication: Shortness of Breath EP Interpretation: Yes Interpretation: no effusion, no pneumothorax, other - Vascular congestion Impression: Other - chf Electronically Signed by: chf Last Vital Signs Date Time Temp Pulse Resp B/P (MAP) Pulse Ox O2 Delivery O2 Flow Rate FiO2 07/30/17 00:00 94 07/30/17 00:00 97.6 18 110/50 97 Non-Rebreather 15.0 07/29/17 23:05 40 Status: improved Disposition: ADMITTED INPATIENT Condition: Serious Referrals: Jenise Warren MD (PCP) PRANAV REID M.D. Jul 30, 2017 01:41
[2017-07-30] MEDS ORDERED: Heparin 5000 units/ml inj IV ONE (02:00)
[2017-07-30] MEDS: Heparin 25,000u/D5W 500ml 500 ML IV SCH ×2 (02:18→12:39)
[2017-07-30 04:00] VITALS: BP 90/50
[2017-07-30] MEDS ORDERED: Heparin Sod 1000 units/ml 10ml IV SCH (06:00)
[2017-07-30 06:08] LABS: BASOPHILS % (AUTO) 0.5 % (0.0-2.0); EOSINOPHILS % (AUTO) 1.9 % (0.0-3.0); HEMATOCRIT 25.9 % (42.0-52.0); HEMOGLOBIN 8.1 G/DL (14.2-18.0); LYMPHOCYTES % (AUTO) 8.8 % (20.0-45.0); MEAN CORPUSCULAR VOLUME 91 FL (80-99); MONOCYTES % (AUTO) 7.9 % (1.0-10.0); NEUTROPHILS % (AUTO) 80.9 % (45.0-75.0); PLATELET COUNT 391 K/UL (150-450); RED BLOOD COUNT 2.83 M/UL (4.70-6.10); RED CELL DISTRIBUTION WIDTH 18.7 % (11.6-14.8); WHITE BLOOD COUNT 16.7 K/UL (4.8-10.8)
[2017-07-30 06:30] LABS: ANION GAP 7 mmol/L (5-15); BLOOD UREA NITROGEN 32 mg/dL (7-18); CALCIUM 8.2 MG/DL (8.5-10.1); CARBON DIOXIDE 29 MMOL/L (21-32); CHLORIDE 104 MMOL/L (98-107); CREATININE 1.9 MG/DL (0.55-1.30); POTASSIUM 3.2 MMOL/L (3.5-5.1); SODIUM 140 MMOL/L (136-145)
[2017-07-30 08:15] VITALS: BP 89/46
[2017-07-30] MEDS ORDERED: Aspirin EC 81mg tab ORAL SCH (09:00)
--- NOTE | 2017-07-30 09:31 | General Progress Note ---
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 RENAL FAILURE IN NEED OF HEMODIALYSIS Subjective Allergies: Coded Allergies: No Known Allergies (Unverified , 06/18/17) Subjective patient has developed decreased mentation and was brought into [facility] he is taking antibiocs and seems more alert Objective Last 24 Hour Vital Signs Date Time Temp Pulse Resp B/P (MAP) Pulse Ox O2 Delivery O2 Flow Rate FiO2 07/30/17 08:36 78 37 97 Facial 40 07/30/17 08:15 96.6 96 43 89/46 96 Bi-pap 40 07/30/17 06:53 86 34 98 Facial 40 07/30/17 05:12 79 39 98 Facial 40 07/30/17 04:00 86 07/30/17 04:00 97.4 90 30 90/50 96 Non-Rebreather 15.0 07/30/17 04:00 40 07/30/17 03:15 83 34 99 Facial 40 07/30/17 01:21 92 39 99 Facial 40 07/30/17 00:00 94 07/30/17 00:00 97.6 96 18 110/50 97 Non-Rebreather 15.0 07/29/17 23:05 97 41 98 Facial 40 07/29/17 21:23 78 40 97 Facial 40 07/29/17 20:36 82 95/49 07/29/17 20:00 40 07/29/17 20:00 86 07/29/17 20:00 98.5 113 30 92/53 96 Non-Rebreather 15.0 07/29/17 19:12 82 42 98 Facial 40 07/29/17 17:05 86 39 97 Facial 40 07/29/17 16:59 84 07/29/17 16:00 97.4 83 35 95/49 99 Non-Rebreather 15.0 07/29/17 16:00 40 07/29/17 15:30 Bi-pap 40 07/29/17 14:39 90 45 97 Facial 40 07/29/17 12:40 85 34 98 Facial 40 07/29/17 12:25 Bi-pap 40 07/29/17 12:00 40 07/29/17 12:00 95.9 92 34 95/51 99 Non-Rebreather 15.0 07/29/17 12:00 89 07/29/17 11:00 100.0 97 36 104/57 99 Bi-pap 15.0 40 07/29/17 10:42 93 48 94 Facial 40 07/29/17 09:30 97 36 104/57 99 Bi-pap 40 Intake and Output 07/29/17 07/30/17 19:00 07:00 Intake Total 236.667 ml 1029.221 ml Output Total 1125 ml Balance -888.333 ml 1029.221 ml IV Total 166.667 ml 729.221 ml Tube Feeding 20 ml 200 ml Other 50 ml 100 ml Output Hemodialysis UF 1125 ml # Bowel Movements 1 Laboratory Tests 07/29/17 12:47: Troponin I 0.109H 07/29/17 18:05: White Blood Count 18.1H, Red Blood Count 3.30L, Hemoglobin 9.4L, Hematocrit 30.0L, Mean Corpuscular Volume 91, Mean Corpuscular Hemoglobin 28.5, Mean Corpuscular Hemoglobin Concent 31.2L, Red Cell Distribution Width 19.2H, Platelet Count 406, Mean Platelet Volume 5.8L, Neutrophils (%) (Auto) , Lymphocytes (%) (Auto) , Monocytes (%) (Auto) , Eosinophils (%) (Auto) , Basophils (%) (Auto) , Differential Total Cells Counted 100, Neutrophils % ( Manual) 80H, Lymphocytes % (Manual) 8L, Monocytes % (Manual) 10, Eosinophils % ( Manual) 2, Basophils % (Manual) 0, Band Neutrophils 0, Platelet Estimate IncreasedH, Platelet Morphology Normal, Hypochromasia 1+, Anisocytosis 1+, Activated Partial Thromboplast Time 33 07/30/17 00:45: Activated Partial Thromboplast Time 39H 07/30/17 04:35: Troponin I 0.090H, White Blood Count 16.7H, Red Blood Count 2.83L, Hemoglobin 8.1L, Hematocrit 25.9L, Mean Corpuscular Volume 91, Mean Corpuscular Hemoglobin 28.8, Mean Corpuscular Hemoglobin Concent 31.5L, Red Cell Distribution Width 18.7H, Platelet Count 391, Mean Platelet Volume 6.2L, Neutrophils (%) (Auto) 80.9H, Lymphocytes (%) (Auto) 8.8L, Monocytes (%) (Auto) 7.9, Eosinophils (%) ( Auto) 1.9, Basophils (%) (Auto) 0.5, Sodium Level 140, Potassium Level 3.2L, Chloride Level 104, Carbon Dioxide Level 29, Anion Gap 7, Blood Urea Nitrogen 32H, Creatinine 1.9H, Estimat Glomerular Filtration Rate , Glucose Level 144H, Calcium Level 8.2L, Random Vancomycin Level 24.0 07/30/17 08:34: Activated Partial Thromboplast Time 85H Height (Feet): 6 Weight (Pounds): 127 Respiratory/Chest: decreased breath sounds Abdomen: normal bowel sounds, non tender, soft Neurologic: alert Jenise Warren MD Jul 30, 2017 09:31
[2017-07-30] MEDS: Metoprolol 25mg tab ORAL SCH ×2 (09:39→20:34)
[2017-07-30] MEDS: Vitamin A&D Oint 2oz Tube TOPIC SCH ×2 (09:39→20:35)
[2017-07-30] MEDS: Aspirin EC 81mg tab ORAL SCH (09:39)
[2017-07-30] MEDS: Piperacillin/Tazobactam 2.25 GM in NS 55 ML IVPB SCH ×3 (09:39→23:07)
[2017-07-30] MEDS ORDERED: Heparin Sod 1000 units/ml 10ml IV ONE (10:00)
--- NOTE | 2017-07-30 11:19 | Diagnostic Imaging Report ---
Indication: Shortness of breath Technique: One view of the chest Comparison: 07/29/2017 Findings: There is increased opacification of the left hemithorax, likely reflecting increased pleural fluid. There is resultant decrease in the amount of aerated left lung. There may be a component of increasing left lung atelectasis as well. There is better aeration of the right lung as well as evidence of decreased right pleural fluid. Left chest tunneled dialysis catheter remains. Impression: Increasing left pleural effusion and likely parenchymal atelectasis, with decreased aerated lung volume on the left, over one day Improved aeration of the right lung and suggestion of improved right pleural fluid Other findings as noted
--- NOTE | 2017-07-30 11:42 | Pulmonology Progress Note ---
Assessment/Plan Assessment/Plan ASSESSMENT acute hypoxemic RF requiring BiPAP sepsis hypotension UTI Large left pleural effusion acute DVT LLE recent hx of catheter associated bacteremia and sepsis OM elevated troponin ESRD, on HD anemia of chronic disease dysphagia, G tube L ankle ulcer with recent dx of osteomyelitis DM CVA with R hemiparesis hepatitis C PLAN OF CARE MARIA ESTHER CXR with large left pleural effusion ABG stable on BiPAP, no acidosis, no hypercapnia, will wean to VM start CPT with HHN for 48 hrs elevate left side of the chest fup with CXR empiric abx, fup with cx ID follows monitor BP closely , possible early shock levels flat, trending down, likely 2 to ESRD, cardio follows ECHO get stat venous Duplex BLE heparin gtt HD as per nephro, monitor renal parameters, lytes and correct as needed strict aspiration precautions, GT feeding, monitor tolerance, dietary eval monitor count, transfuse prn, HH trending down, on EPO wound nurse eval and wound care as per wound nurse recs DVT prophylaxis BS management with SS of insulin case discussed and evaluated by supervising physician Subjective Allergies: Coded Allergies: No Known Allergies (Unverified , 06/18/17) Subjective afebrile, still with leukocytosis CXR with large left pleural effusion ABG stable on BiPAP,no hypercapnia, no acidosis outside report for Venous Duplex revealed acute thrombus LLE started on heparin gtt HD done 2/ Objective Last 24 Hour Vital Signs Date Time Temp Pulse Resp B/P (MAP) Pulse Ox O2 Delivery O2 Flow Rate FiO2 07/30/17 11:08 80 35 98 Facial 40 07/30/17 09:39 78 89/46 07/30/17 08:36 78 37 97 Facial 40 07/30/17 08:15 96.6 96 43 89/46 96 Bi-pap 40 07/30/17 08:00 40 07/30/17 07:53 85 07/30/17 06:53 86 34 98 Facial 40 07/30/17 05:12 79 39 98 Facial 40 07/30/17 04:00 86 07/30/17 04:00 97.4 90 30 90/50 96 Non-Rebreather 15.0 07/30/17 04:00 40 07/30/17 03:15 83 34 99 Facial 40 07/30/17 01:21 92 39 99 Facial 40 07/30/17 00:00 94 07/30/17 00:00 97.6 96 18 110/50 97 Non-Rebreather 15.0 07/29/17 23:05 97 41 98 Facial 40 07/29/17 21:23 78 40 97 Facial 40 07/29/17 20:36 82 95/49 07/29/17 20:00 40 07/29/17 20:00 86 07/29/17 20:00 98.5 113 30 92/53 96 Non-Rebreather 15.0 07/29/17 19:12 82 42 98 Facial 40 07/29/17 17:05 86 39 97 Facial 40 07/29/17 16:59 84 07/29/17 16:00 97.4 83 35 95/49 99 Non-Rebreather 15.0 07/29/17 16:00 40 07/29/17 15:30 Bi-pap 40 07/29/17 14:39 90 45 97 Facial 40 07/29/17 12:40 85 34 98 Facial 40 07/29/17 12:25 Bi-pap 40 07/29/17 12:00 40 07/29/17 12:00 95.9 92 34 95/51 99 Non-Rebreather 15.0 07/29/17 12:00 89 Intake and Output 07/29/17 07/30/17 19:00 07:00 Intake Total 236.667 ml 1029.221 ml Output Total 1125 ml Balance -888.333 ml 1029.221 ml IV Total 166.667 ml 729.221 ml Tube Feeding 20 ml 200 ml Other 50 ml 100 ml Output Hemodialysis UF 1125 ml # Bowel Movements 1 Objective General Appearance: no apparent distress, alert, poorly reponsive AA male in NAD , on BiPAP 10/5/ FiO2 40% Lines, tubes and drains: peripheral HEENT: normocephalic, atraumatic Neck: non-tender, supple Respiratory/Chest: lungs clear - with moderate air exchange , no respiratory distress Cardiovascular/Chest: normal rate - SR on tele Abdomen: normal bowel sounds, non tender, soft, feeding tube - G tube Extremities: Right hemiparesis, Skin Exam: warm/dry, left ankle ulcer Neurologic: abnormal gait, alert Microbiology Date/Time Source Procedure Growth Status 07/29/17 18:00 Nasopharynx Influenza Types A,B Antigen (JOSE ALFREDO) - Final Complete 07/29/17 05:45 Urine,Clean Catch Urine Culture - Preliminary Resulted Laboratory Tests 07/29/17 12:47: Troponin I 0.109H 07/29/17 18:05: White Blood Count 18.1H, Red Blood Count 3.30L, Hemoglobin 9.4L, Hematocrit 30.0L, Mean Corpuscular Volume 91, Mean Corpuscular Hemoglobin 28.5, Mean Corpuscular Hemoglobin Concent 31.2L, Red Cell Distribution Width 19.2H, Platelet Count 406, Mean Platelet Volume 5.8L, Neutrophils (%) (Auto) , Lymphocytes (%) (Auto) , Monocytes (%) (Auto) , Eosinophils (%) (Auto) , Basophils (%) (Auto) , Differential Total Cells Counted 100, Neutrophils % ( Manual) 80H, Lymphocytes % (Manual) 8L, Monocytes % (Manual) 10, Eosinophils % ( Manual) 2, Basophils % (Manual) 0, Band Neutrophils 0, Platelet Estimate IncreasedH, Platelet Morphology Normal, Hypochromasia 1+, Anisocytosis 1+, Activated Partial Thromboplast Time 33 07/30/17 00:45: Activated Partial Thromboplast Time 39H 07/30/17 04:35: Troponin I 0.090H, White Blood Count 16.7H, Red Blood Count 2.83L, Hemoglobin 8.1L, Hematocrit 25.9L, Mean Corpuscular Volume 91, Mean Corpuscular Hemoglobin 28.8, Mean Corpuscular Hemoglobin Concent 31.5L, Red Cell Distribution Width 18.7H, Platelet Count 391, Mean Platelet Volume 6.2L, Neutrophils (%) (Auto) 80.9H, Lymphocytes (%) (Auto) 8.8L, Monocytes (%) (Auto) 7.9, Eosinophils (%) ( Auto) 1.9, Basophils (%) (Auto) 0.5, Sodium Level 140, Potassium Level 3.2L, Chloride Level 104, Carbon Dioxide Level 29, Anion Gap 7, Blood Urea Nitrogen 32H, Creatinine 1.9H, Estimat Glomerular Filtration Rate , Glucose Level 144H, Calcium Level 8.2L, Random Vancomycin Level 24.0 07/30/17 08:34: Activated Partial Thromboplast Time 85H 07/30/17 11:19: Arterial Blood pH 7.449, Arterial Blood Partial Pressure CO2 44.4, Arterial Blood Partial Pressure O2 67.3L, Arterial Blood HCO3 30.1H, Arterial Blood Oxygen Saturation 93.2, Arterial Blood Base Excess 5.5, Jones Test Positive Current Medications Medications (Trade) Dose Ordered Sig/Jaime Route PRN Reason Start Time Stop Time Status Last Admin Dose Admin Acetaminophen (Tylenol) 650 mg Q4H PRN ORAL Fever 07/29/17 14:00 08/28/17 13:59 Albuterol/ Ipratropium (Albuterol/ Ipratropium) 3 ml Q4H PRN HHN Shortness of Breath 07/29/17 14:00 08/03/17 13:59 Aspirin (Ecotrin) 81 mg DAILY ORAL 07/30/17 09:00 08/29/17 08:59 07/30/17 09:39 Dextrose (Dextrose 50%) STAT PRN IV Hypoglycemia 07/29/17 14:00 08/28/17 13:59 Heparin Sodium (Porcine) (Heparin Sod 1000 units/ml 10ml) 2,000 unit ONCE IV 07/30/17 06:00 07/30/17 23:59 07/30/17 05:43 Heparin Sodium/ Dextrose 500 ml @ 31.933 mls/ hr adjust per protocol IV 07/30/17 02:00 08/28/17 18:29 07/30/17 02:18 Metoprolol Tartrate (Lopressor) 25 mg EVERY 12 HOURS ORAL 07/29/17 21:00 08/28/17 20:59 Ondansetron HCl (Zofran) 4 mg Q6H PRN IVP Nausea & Vomiting 07/29/17 14:00 08/28/17 13:59 Piperacillin Sod/ Tazobactam Sod 2.25 gm/Sodium Chloride 55 ml @ 110 mls/hr Q8H IVPB 07/29/17 16:00 08/05/17 23:59 07/30/17 09:39 Polyethylene Glycol (Miralax) 17 gm DAILYPRN PRN ORAL Constipation 07/29/17 14:00 08/28/17 13:59 Quetiapine Fumarate (SEROquel) 25 mg BEDTIME ORAL 07/29/17 21:00 08/28/17 20:59 Sodium Chloride 1,000 ml @ 500 mls/hr Q2H PRN IVLG sbp<90 during hd 07/30/17 06:00 07/30/17 23:59 Temazepam (Restoril) 15 mg HSPRN PRN ORAL Insomnia 07/29/17 14:00 08/05/17 13:59 Vancomycin HCl (Vanco rx to dose) 1 ea DAILY PRN MISC Per rx protocol 07/29/17 13:00 08/28/17 12:59 Vancomycin HCl 1 gm/Dextrose 275 ml @ 183.708 mls/hr ONCE ONCE IVPB 07/30/17 22:00 07/30/17 23:29 Vitamin A/Vitamin D (A & D Oint) 1 applic EVERY 12 HOURS TOPIC 07/29/17 21:00 08/28/17 20:59 07/30/17 09:39 Al (Silver)Samara NP Jul 30, 2017 11:42
[2017-07-30 12:00] VITALS: BP 103/29
--- NOTE | 2017-07-30 12:03 | Nephrology Progress Note ---
Assessment/Plan Problem List: (1) End-stage renal disease (2) Malnutrition of moderate degree (3) Anemia (4) Sepsis (5) UTI (urinary tract infection) (6) Acute respiratory failure with hypoxemia Plan HD on Monday start Epogen Nephrovite daily follow labs Res treatments Subjective Subjective On BIPAP Objective Objective Last 24 Hour Vital Signs Date Time Temp Pulse Resp B/P (MAP) Pulse Ox O2 Delivery O2 Flow Rate FiO2 07/30/17 11:08 80 35 98 Facial 40 07/30/17 09:39 78 89/46 07/30/17 08:36 78 37 97 Facial 40 07/30/17 08:15 96.6 96 43 89/46 96 Bi-pap 40 07/30/17 08:00 40 07/30/17 07:53 85 07/30/17 06:53 86 34 98 Facial 40 07/30/17 05:12 79 39 98 Facial 40 07/30/17 04:00 86 07/30/17 04:00 97.4 90 30 90/50 96 Non-Rebreather 15.0 07/30/17 04:00 40 07/30/17 03:15 83 34 99 Facial 40 07/30/17 01:21 92 39 99 Facial 40 07/30/17 00:00 94 07/30/17 00:00 97.6 96 18 110/50 97 Non-Rebreather 15.0 07/29/17 23:05 97 41 98 Facial 40 07/29/17 21:23 78 40 97 Facial 40 07/29/17 20:36 82 95/49 07/29/17 20:00 40 07/29/17 20:00 86 07/29/17 20:00 98.5 113 30 92/53 96 Non-Rebreather 15.0 07/29/17 19:12 82 42 98 Facial 40 07/29/17 17:05 86 39 97 Facial 40 07/29/17 16:59 84 07/29/17 16:00 97.4 83 35 95/49 99 Non-Rebreather 15.0 07/29/17 16:00 40 07/29/17 15:30 Bi-pap 40 07/29/17 14:39 90 45 97 Facial 40 07/29/17 12:40 85 34 98 Facial 40 07/29/17 12:25 Bi-pap 40 Intake and Output 07/29/17 07/30/17 19:00 07:00 Intake Total 236.667 ml 1029.221 ml Output Total 1125 ml Balance -888.333 ml 1029.221 ml IV Total 166.667 ml 729.221 ml Tube Feeding 20 ml 200 ml Other 50 ml 100 ml Output Hemodialysis UF 1125 ml # Bowel Movements 1 Laboratory Tests 07/29/17 12:47: Troponin I 0.109H 07/29/17 18:05: White Blood Count 18.1H, Red Blood Count 3.30L, Hemoglobin 9.4L, Hematocrit 30.0L, Mean Corpuscular Volume 91, Mean Corpuscular Hemoglobin 28.5, Mean Corpuscular Hemoglobin Concent 31.2L, Red Cell Distribution Width 19.2H, Platelet Count 406, Mean Platelet Volume 5.8L, Neutrophils (%) (Auto) , Lymphocytes (%) (Auto) , Monocytes (%) (Auto) , Eosinophils (%) (Auto) , Basophils (%) (Auto) , Differential Total Cells Counted 100, Neutrophils % ( Manual) 80H, Lymphocytes % (Manual) 8L, Monocytes % (Manual) 10, Eosinophils % ( Manual) 2, Basophils % (Manual) 0, Band Neutrophils 0, Platelet Estimate IncreasedH, Platelet Morphology Normal, Hypochromasia 1+, Anisocytosis 1+, Activated Partial Thromboplast Time 33 07/30/17 00:45: Activated Partial Thromboplast Time 39H 07/30/17 04:35: Troponin I 0.090H, White Blood Count 16.7H, Red Blood Count 2.83L, Hemoglobin 8.1L, Hematocrit 25.9L, Mean Corpuscular Volume 91, Mean Corpuscular Hemoglobin 28.8, Mean Corpuscular Hemoglobin Concent 31.5L, Red Cell Distribution Width 18.7H, Platelet Count 391, Mean Platelet Volume 6.2L, Neutrophils (%) (Auto) 80.9H, Lymphocytes (%) (Auto) 8.8L, Monocytes (%) (Auto) 7.9, Eosinophils (%) ( Auto) 1.9, Basophils (%) (Auto) 0.5, Sodium Level 140, Potassium Level 3.2L, Chloride Level 104, Carbon Dioxide Level 29, Anion Gap 7, Blood Urea Nitrogen 32H, Creatinine 1.9H, Estimat Glomerular Filtration Rate , Glucose Level 144H, Calcium Level 8.2L, Random Vancomycin Level 24.0 07/30/17 08:34: Activated Partial Thromboplast Time 85H 07/30/17 11:19: Arterial Blood pH 7.449, Arterial Blood Partial Pressure CO2 44.4, Arterial Blood Partial Pressure O2 67.3L, Arterial Blood HCO3 30.1H, Arterial Blood Oxygen Saturation 93.2, Arterial Blood Base Excess 5.5, Jones Test Positive Height (Feet): 6 Weight (Pounds): 127 Cardiovascular: normal rate Respiratory/Chest: rhonchi - bilaterally Extremities: other - no edema MARYAM ROBLES Jul 30, 2017 12:03
[2017-07-30] MEDS: Nephrovite tab (Rena-Vite) ORAL SCH (12:39)
[2017-07-30 16:00] VITALS: BP 103/57
[2017-07-30] MEDS ORDERED: NS Irrig 1000ml ONE (18:12)
[2017-07-30] MEDS ORDERED: NS 275ml ONE (18:12)
--- NOTE | 2017-07-30 18:35 | Cardiology Progress Note ---
Assessment/Plan Problem List: (1) End-stage renal disease (2) Malnutrition of moderate degree (3) ACS (acute coronary syndrome) (4) Dyspnea Status: stable, unchanged Status Narrative Pt w/ hx of CVA, HTN, ESRD, on hemodialysis, recent adm for sepsis, who was readm w/ dyspnea and hypoxia. WBC elevated. CXR w/ large L pl effusion. Being treated for poss pneumonia/sepsis r/o DVT - 06/29/17 venous duplex reported DVT in L common femoral and popliteal veins ( [facility] - outside report in "diagnostics" section of chart. ). Repeat u/s today shows bilateral nonocclusive thrombus and reported tip of thrombus at common femoral- popliteal v Mild troponin elevation - may be due to renal failure. Assessment/Plan Continue antibiotics for poss pneumonia. Followup culture results. ? thoracentesis for Lt pl effusion. Anticoagulation for DVT ECHO to assess LV function , wall motion. Subjective ROS Limited/Unobtainable: Yes Subjective Pt alert, with no c/o pain or dyspnea.Minimal verbal responses. Objective Last 24 Hour Vital Signs Date Time Temp Pulse Resp B/P (MAP) Pulse Ox O2 Delivery O2 Flow Rate FiO2 07/30/17 16:24 100 07/30/17 16:00 40 07/30/17 16:00 98.2 108 25 103/57 96 Bi-pap 40 07/30/17 14:45 82 32 98 Facial 40 07/30/17 13:09 86 32 97 Facial 40 07/30/17 12:00 97.5 103 29 103/29 98 Bi-pap 40 07/30/17 12:00 40 07/30/17 11:53 98 07/30/17 11:08 80 35 98 Facial 40 07/30/17 09:39 78 89/46 07/30/17 08:36 78 37 97 Facial 40 07/30/17 08:15 96.6 96 43 89/46 96 Bi-pap 40 07/30/17 08:00 40 07/30/17 07:53 85 07/30/17 06:53 86 34 98 Facial 40 07/30/17 05:12 79 39 98 Facial 40 07/30/17 04:00 86 07/30/17 04:00 97.4 90 30 90/50 96 Non-Rebreather 15.0 07/30/17 04:00 40 07/30/17 03:15 83 34 99 Facial 40 07/30/17 01:21 92 39 99 Facial 40 07/30/17 00:00 94 07/30/17 00:00 97.6 96 18 110/50 97 Non-Rebreather 15.0 07/29/17 23:05 97 41 98 Facial 40 07/29/17 21:23 78 40 97 Facial 40 07/29/17 20:36 82 95/49 07/29/17 20:00 40 07/29/17 20:00 86 07/29/17 20:00 98.5 113 30 92/53 96 Non-Rebreather 15.0 07/29/17 19:12 82 42 98 Facial 40 General Appearance: no apparent distress, alert EENT: PERRL/EOMI Neck: supple, no JVD Rhythm: NSR Cardiovascular: normal rate, regular rhythm, no gallop/murmur Respiratory/Chest: other - few rhonchi anteriorly Abdomen: non tender, soft Extremities: no swelling, other - upper extrem/ lower extrem contractures Intake and Output 07/29/17 07/30/17 19:00 07:00 Intake Total 236.667 ml 1029.221 ml Output Total 1125 ml Balance -888.333 ml 1029.221 ml IV Total 166.667 ml 729.221 ml Tube Feeding 20 ml 200 ml Other 50 ml 100 ml Output Hemodialysis UF 1125 ml # Bowel Movements 1 Laboratory Tests Test 07/30/17 00:45 07/30/17 04:35 07/30/17 08:34 07/30/17 11:19 Activated Partial Thromboplast Time 39 SEC (23-33) H 85 SEC (23-33) H White Blood Count 16.7 K/UL (4.8-10.8) H Red Blood Count 2.83 M/UL (4.70-6.10) L Hemoglobin 8.1 G/DL (14.2-18.0) L Hematocrit 25.9 % (42.0-52.0) L Mean Corpuscular Volume 91 FL (80-99) Mean Corpuscular Hemoglobin 28.8 PG (27.0-31.0) Mean Corpuscular Hemoglobin Concent 31.5 G/DL (32.0-36.0) L Red Cell Distribution Width 18.7 % (11.6-14.8) H Platelet Count 391 K/UL (150-450) Mean Platelet Volume 6.2 FL (6.5-10.1) L Neutrophils (%) (Auto) 80.9 % (45.0-75.0) H Lymphocytes (%) (Auto) 8.8 % (20.0-45.0) L Monocytes (%) (Auto) 7.9 % (1.0-10.0) Eosinophils (%) (Auto) 1.9 % (0.0-3.0) Basophils (%) (Auto) 0.5 % (0.0-2.0) Sodium Level 140 MMOL/L (136-145) Potassium Level 3.2 MMOL/L (3.5-5.1) L Chloride Level 104 MMOL/L (98-107) Carbon Dioxide Level 29 MMOL/L (21-32) Anion Gap 7 mmol/L (5-15) Blood Urea Nitrogen 32 mg/dL (7-18) H Creatinine 1.9 MG/DL (0.55-1.30) H Estimat Glomerular Filtration Rate mL/min (>60) Glucose Level 144 MG/DL (74-106) H Calcium Level 8.2 MG/DL (8.5-10.1) L Troponin I 0.090 ng/mL (0.000-0.056) Random Vancomycin Level 24.0 ug/mL Arterial Blood pH 7.449 (7.350-7.450) Arterial Blood Partial Pressure CO2 44.4 mmHg (35.0-45.0) Arterial Blood Partial Pressure O2 67.3 mmHg (75.0-100.0) L Arterial Blood HCO3 30.1 mmol/L (22.0-26.0) H Arterial Blood Oxygen Saturation 93.2 % (92.0-98.0) Arterial Blood Base Excess 5.5 Jones Test Positive Microbiology Date/Time Source Procedure Growth Status 07/29/17 18:00 Nasopharynx Influenza Types A,B Antigen (JOSE ALFREDO) - Final Complete 07/29/17 05:45 Urine,Clean Catch Urine Culture - Preliminary Resulted DENIZ SWEET Jul 30, 2017 18:35
[2017-07-30 20:00] VITALS: BP 95/57
[2017-07-30] MEDS ORDERED: Vancomycin 1gm/D5W 275ml IVPB ONE ×2 (22:00)
--- NOTE | 2017-07-30 23:05 | Consultation ---
DATE OF CONSULTATION: 07/29/2017 NEPHROLOGY CONSULTATION CONSULTING PHYSICIAN: Floyd Gresham M.D. REFERRING PHYSICIAN: Oral Wilkins M.D. REASON FOR CONSULTATION: End-stage renal disease, requiring hemodialysis. HISTORY OF PRESENT ILLNESS: This is an 82-year-old unfortunate male with history of end-stage renal disease, on hemodialysis. I saw the patient on behalf of Dr. Ngo in the emergency room and he was already on BiPAP and unable to provide any history. History was obtained from the chart. I was asked to see him and order dialysis urgently because of fluid overload. The patient apparently has been dyspneic and that is why he is on BiPAP. PAST MEDICAL HISTORY: History of CVA with right hemiparesis, type 2 diabetes mellitus, hepatitis C, history of MRSA bacteremia, catheter infection, and history of left ankle ulcer. MEDICATIONS: Reviewed in the EMR. ALLERGIES: No known drug allergies. SOCIAL HISTORY: Unobtainable. REVIEW OF SYSTEMS: Unobtainable. PHYSICAL EXAMINATION: GENERAL: The patient is an elderly male. He is on BiPAP. VITAL SIGNS: Blood pressure is 104/57, pulse 97, temperature 100 degrees, and respiratory rate is 36. HEENT: Pale conjunctivae. Anicteric sclerae. NECK: Supple. LUNGS: Coarse breath sounds bilaterally. CHEST: The patient has left-sided PermCath. ABDOMEN: Soft and nontender. EXTREMITIES: Bilateral pedal edema. LABORATORY FINDINGS: CBC shows WBC of 15.4, hematocrit is 29.1, hemoglobin 9.1, and platelets 457,000. Chemistry panel shows serum sodium 136, potassium 2.9, chloride 99, BUN 42, creatinine 2.2, glucose 206, and calcium 8.1. Albumin is 1.3. ASSESSMENT: This is an 82-year-old male with history of end-stage renal disease, on hemodialysis, who presents now with respiratory failure and some degree of fluid overload. The patient diagnosed with sepsis from urinary tract infection. His urinalysis shows too numerous to count wbc's per high-powered field with moderate bacteria. PLAN: The patient will be dialyzed urgently today with good amount of ultrafiltration. The antibiotic will be followed and adjustment will be made in the patient's regimen. Thank you very much for this consultation. Floyd Gresham M.D. DR: Ambrocio JOB#: [id number] CC:
--- NOTE | 2017-07-30 23:05 | Consultation ---
DATE OF CONSULTATION: 07/29/2017 CARDIOLOGY CONSULTATION REASON FOR CONSULTATION: Elevated troponin. HISTORY OF PRESENT ILLNESS: History is obtained from the chart and treating providers as the patient is unable to give any history. The patient is an 82-year-old man with history of previous CVAs, end-stage renal disease on hemodialysis, type 2 diabetes, and recent hospitalization with septic shock with MRSA bacteremia. At that time, he underwent replacement of his hemodialysis catheter. During that admission, he also had MRSA and Enterobacter pneumonia, left ankle ulcer, and osteomyelitis. He was treated with intravenous and oral antibiotics. He presented today from the convalescent home with fever to 100 degrees and respiratory distress. He was placed on BiPAP. He was noted to have pyuria. He was admitted for treatment of possible pneumonia and urosepsis. He was noted to have an elevated troponin level of 0.093 on admission and repeat of 0.109. Cardiology evaluation was requested. The patient himself cannot give any history. He is nonverbal and on BiPAP ventilator. There is no history in the chart of previous cardiac testing or diagnoses. There is a report from 07/27/2017 of venous duplex of the legs showing acute DVT in the left lower extremity, left common femoral, superficial femoral, and popliteal veins. PAST MEDICAL HISTORY: As noted above. MEDICATIONS: Aspirin 81 mg daily, Seroquel 25 mg daily, subcutaneous heparin 5000 units q.12 hours, metoprolol 25 mg every 12 hours, vancomycin intravenously, Zosyn 2.25 g IV q.8 h., albuterol and ipratropium nebulizer q.4 h. p.r.n., and Zofran p.r.n. ALLERGIES: No known drug allergies. SOCIAL HISTORY: The patient is convalescent home resident, dependent for all ADLs. PHYSICAL EXAMINATION: VITAL SIGNS: Blood pressure is 95/49, pulse 83 and regular, respirations 34, afebrile, and oxygen saturation 99% on BiPAP mask. HEENT: Normocephalic and atraumatic. BiPAP mask in place. NECK: Supple. There is no jugular venous distention. No carotid bruits. LUNGS: Tachypneic. Shallow respirations. Clear anteriorly. HEART: Regular S1 and S2. No murmurs or S3. ABDOMEN: Soft and nontender. No palpable mass. EXTREMITIES: There is 2+ pitting edema of the left ankle. Flexion contractures of the arms bilaterally. SKIN: No rashes or lesions. NEUROLOGIC: Not testable due to the patient's condition. LABORATORY AND DIAGNOSTIC DATA: Sodium 136, potassium 2.9, chloride 99, bicarbonate 31, BUN 43, creatinine 2.2, and glucose 206. Troponin 0.093, repeat 0.109. Hemoglobin 9.1, hematocrit 29, white blood count 15,400, and platelets 457,000. EKG shows sinus tachycardia, rate of 114 beats per minute, right bundle branch block, and left anterior wilberto block. No old EKG available for comparison. Chest x-ray shows bilateral pleural effusions and interstitial edema. Urinalysis, cloudy, 4+ protein, 3+ leukocyte esterase, too numerous to count white blood cells, and moderate bacteria. ASSESSMENT AND RECOMMENDATIONS: The patient is an 82-year-old man with multiple medical problems as outlined above, who is admitted with respiratory distress and pyuria. He is hypokalemic. He has had a recent venous duplex of the legs showing left deep venous thrombosis. The cause of his dyspnea is multifactorial likely due to a combination of volume overload, possible pneumonia. The cause of his respiratory decompensation is likely multifactorial due to a combination of volume overload, congestive heart failure, possible pneumonia, and possible pulmonary embolus. The cause of his dyspnea is likely multifactorial due to a combination of volume overload, congestive heart failure and possible pneumonia. Pulmonary embolus also cannot be definitely ruled out. He is undergoing hemodialysis with fluid removal. He has been started on empiric antibiotics. He had an echocardiogram performed last month showing global left ventricular hypokinesis with ejection fraction of 45% to 50% and no significant valve lesions. No pulmonary hypertension. We will repeat the echocardiogram to assess pulmonary pressures and ventricular function. Serial troponin levels will be obtained. The mild troponin elevation is likely due to demand ischemia. We will check additional EKGs as well. With regard to his DVT, we will discuss anticoagulation with his primary team. Dr. Benedicto Mccollum will continue to follow this patient starting 07/31/2017. Homa Jack M.D. DR: Nichole JOB#: [id number] CC:
[2017-07-31] VITALS (7 sets, daily range): BP systolic 90–155; BP diastolic 49–88
[2017-07-31 04:50] LABS: BASOPHILS % (AUTO) 0.4 % (0.0-2.0); EOSINOPHILS % (AUTO) 2.5 % (0.0-3.0); HEMATOCRIT 25.8 % (42.0-52.0); HEMOGLOBIN 8.2 G/DL (14.2-18.0); MEAN CORPUSCULAR VOLUME 92 FL (80-99); MONOCYTES % (AUTO) 9.5 % (1.0-10.0); NEUTROPHILS % (AUTO) 76.6 % (45.0-75.0); PLATELET COUNT 445 K/UL (150-450); RED BLOOD COUNT 2.82 M/UL (4.70-6.10); RED CELL DISTRIBUTION WIDTH 19.1 % (11.6-14.8); WHITE BLOOD COUNT 14.1 K/UL (4.8-10.8)
[2017-07-31 04:55] LABS: ANION GAP 7 mmol/L (5-15); BLOOD UREA NITROGEN 41 mg/dL (7-18); CALCIUM 7.9 MG/DL (8.5-10.1); CARBON DIOXIDE 29 MMOL/L (21-32); CHLORIDE 102 MMOL/L (98-107); CREATININE 2.7 MG/DL (0.55-1.30); POTASSIUM 3.2 MMOL/L (3.5-5.1); SODIUM 138 MMOL/L (136-145)
[2017-07-31] MEDS ORDERED: Heparin 5000 units/ml inj IV ONE (05:15)
[2017-07-31] MEDS: Heparin 25,000u/D5W 500ml 500 ML IV SCH ×2 (05:30→20:35)
[2017-07-31] MEDS: Piperacillin/Tazobactam 2.25 GM in NS 55 ML IVPB SCH ×3 (08:24→23:14)
[2017-07-31] MEDS: Nephrovite tab (Rena-Vite) ORAL SCH (08:31)
[2017-07-31] MEDS: Metoprolol 25mg tab ORAL SCH (08:31)
[2017-07-31] MEDS: Aspirin EC 81mg tab ORAL SCH (08:31)
--- NOTE | 2017-07-31 09:08 | Wound Care Consultation ---
Wound Assessment Wound Assessment #1: Wound Number: 1 Wound Present on Admission: Yes New Wound: No Status Change of Wound: No Wound Location Body Site Modif: left, upper Wound Location Body Site: back Wound Type: pressure ulcer Janet Test: Does not Janet Pressure Ulcer Stage: Deep Tissue Injury Wound Thickness: Full Thickness Wound Length: 2.0 Wound Width: 3.5 Wound Depth: utd Percent of Wound Purple/Maroon: 100 Wound Drainage Amount: None Wound Drainage Odor: None/Absent Tissue Surrounding Wound: Intact Wound General Appearance: Reddened - purple Wound Assessment #2: Wound Number: 2 Wound Present on Admission: Yes New Wound: No Status Change of Wound: No Wound Location Body Site Modif: mid Wound Location Body Site: other - Sacrococcygeal Wound Type: pressure ulcer Janet Test: Does not Janet Pressure Ulcer Stage: Unstageable Wound Thickness: Full Thickness Wound Length: 5.5 Wound Width: 6.5 Wound Depth: utd Percent of Wound Mescal/Red: 10 Percent of Wound Bed Yellow/Wh: 70 Percent of Wound Black/Brown: 10 Percent of Wound Purple/Maroon: 10 Wound Drainage Description: Serosanguineous Wound Drainage Amount: Moderate Wound Drainage Odor: None/Absent Tissue Surrounding Wound: Macerated Wound General Appearance: Reddened - yellow,maroon, Draining, Necrotic Wound Assessment #3: Wound Number: 3 Wound Present on Admission: Yes New Wound: No Status Change of Wound: No Wound Location Body Site Modif: left, lateral Wound Location Body Site: malleolus/ankle Wound Type: pressure ulcer Janet Test: Does not Janet Pressure Ulcer Stage: IV Wound Thickness: Full Thickness Wound Length: 3.0 Wound Width: 3.0 Wound Depth: 0.3 Percent of Wound Mescal/Red: 100 Wound Drainage Description: Serosanguineous Wound Drainage Amount: Moderate Wound Drainage Odor: None/Absent Tissue Surrounding Wound: Macerated Wound General Appearance: Reddened, Draining, Bone Palpable Wound Assessment #4: Wound Number: 4 Wound Present on Admission: Yes New Wound: No Status Change of Wound: No Wound Location Body Site Modif: left, lateral Wound Location Body Site: metatarsal head - 1st Wound Type: scab Janet Test: Does not Janet Wound Thickness: Full Thickness Wound Length: 2.0 Wound Width: 2.0 Wound Depth: utd Wound Drainage Amount: None Tissue Surrounding Wound: Intact Wound General Appearance: Asymptomatic Wound Assessment #5: Wound Number: 5 Wound Present on Admission: Yes New Wound: No Status Change of Wound: No Wound Location Body Site Modif: left, upper Wound Location Body Site: back Janet Test: Does not Janet Pressure Ulcer Stage: Deep Tissue Injury Wound Thickness: Full Thickness Wound Length: 2.0 Wound Width: 3.5 Wound Depth: utd Percent of Wound Purple/Maroon: 100 Wound Drainage Amount: None Wound Drainage Odor: None/Absent Tissue Surrounding Wound: Intact Wound General Appearance: Reddened - maroon Wound Assessment #6: Wound Number: 6 Wound Present on Admission: Yes New Wound: No Status Change of Wound: No Wound Location Body Site Modif: right Wound Location Body Site: heel Wound Type: scar Janet Test: Does not Janet Wound Thickness: Full Thickness Wound Length: 2.0 Wound Width: 2.5 Percent of Wound Mescal/Red: 100 Wound Drainage Amount: None Wound Drainage Odor: None/Absent Tissue Surrounding Wound: Intact Wound General Appearance: Reddened - pink Wound Comment #1 Sacrococcygeal unstageable/IV extending to left buttock pressure ulcer #2 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
--- NOTE | 2017-07-31 09:57 | Diagnostic Imaging Report ---
Indication: Shortness of breath Technique: One view of the chest Comparison: 07/30/2017 Findings: Patient is rotated to the right. Interim significant improvement in aeration of the left lung. Some hazy opacity throughout the left hemithorax probably reflects persistent pleural fluid, could indicate a component of parenchymal consolidation as well. There is increasing haziness of the right lung. This may in part be an artifact of overlying soft tissue related to the difference in rotation, but developing pleural fluid or parenchymal disease also a possibility. Left jugular tunneled dialysis catheter is again demonstrated. Calcified nodules at the right lung base are again demonstrated Impression: Improved aeration of the left lung, over one day. Persistent haziness of the left hemithorax, likely combination of pleural fluid and consolidation Interim development of haziness of the right hemithorax, could indicate developing pleural fluid and/or consolidation Other stable findings as described
[2017-07-31] MEDS: Vitamin A&D Oint 2oz Tube TOPIC SCH ×2 (10:33→20:25)
--- NOTE | 2017-07-31 12:09 | Infectious Diseases Prog Note ---
Assessment/Plan Assessment/Plan Abx: IV Vanco 2/3- Zosyn 2/3- Assessment: Sepsis, likely 2ry to UTI and bacteremia- r/o recurrence MRSA bacteremia- r/o endocarditis -u/a wbc tntc, nit +, leuk +3; ux >100K GNB (id and sensi P) -CXR:Bilateral pleural effusions and interstitial edema, possibly increased since 07/13/2017 -Bcx /3 2/4 GPC clusters -r/o endocarditis -influenza neg Low grade fevers/leukocytosis; improving Acute resp failure on Bipap- possibly due to vol overload; r/o PNA Recent Septic shock 05/2017 2ry to MRSA bacteremia from infected catheter, MRSA and enterobacter PNA, s/p Rx -HD catheter replacement 07/12 -Bcx 06/18 4/ MRSA, 06/19 2/2+; 1/2 neg x4 L ankle ulcer with possible OM, on Rx; end date 08/16 -wound cx VRE (S ampicillin), Taisha albicans -MRI of the left ankle revealed findings suspicious of mild acute osteomyelitisof left ankle lateral malleolus ESRD on HD hep C DM2 CVA with R hemiparesis SNF resident Plan: -Switch IV Vanco #3 to IV Daptomycin 6mg/kg q48hrs for GPC bacteremia -CPK -COntinue Zosyn #3 pending ID and sensi GNR Ucx -monitor closely, if decompensation, switch Zosyn to Meropenem -Repeat 2 sets of Bcx (one from HD cATH)- MAY NEED REMOVAL PENDING ID AND REPEAT BCX -2d echo- eval for endocarditis -may need RAFAEL -f/u cx -Monitor CBC/BMP, temperatures -wound care -aspiration precautions Thank you for this consultation. Will continue to follow along with you. Discussed with RN. Subjective Allergies: Coded Allergies: No Known Allergies (Unverified , 06/18/17) Subjective afebrile in 48hrs leukocytosis improving Bacteremic GPC Objective Vital Signs Last 24 Hour Vital Signs Date Time Temp Pulse Resp B/P (MAP) Pulse Ox O2 Delivery O2 Flow Rate FiO2 07/31/17 10:37 100 27 99 Facial 40 07/31/17 08:40 107 23 96 Facial 40 07/31/17 08:31 104 99/55 07/31/17 08:00 40 07/31/17 08:00 102 2/5/18 08:00 98.7 104 44 100/56 100 Bi-pap 40 07/31/17 06:47 105 24 98 Facial 40 07/31/17 06:47 Bi-pap 40 07/31/17 05:00 40 07/31/17 04:58 101 33 98 Facial 40 07/31/17 04:00 109 07/31/17 04:00 97.0 110 33 105/62 98 Bi-pap 40 07/31/17 00:00 96.7 106 36 110/64 96 Venturi Mask 10.0 45 07/31/17 00:00 99 07/30/17 20:34 105 95/57 07/30/17 20:00 97.2 105 36 95/57 99 Venturi Mask 10.0 45 07/30/17 20:00 99 07/30/17 18:58 Venturi Mask 10.0 45 07/30/17 16:24 100 07/30/17 16:00 40 07/30/17 16:00 98.2 108 25 103/57 96 Bi-pap 40 07/30/17 14:45 82 32 98 Facial 40 07/30/17 13:09 86 32 97 Facial 40 07/30/17 12:00 97.5 103 29 103/29 98 Bi-pap 40 07/30/17 12:00 40 Height (Feet): 6 Weight (Pounds): 127 Objective General Appearance: lethargic - non bverbal on bipap Respiratory/Chest: decreased breath sounds Abdomen: non tender Skin: no rashes/lesions Microbiology Date/Time Source Procedure Growth Status 07/29/17 04:40 Blood Blood Culture - Preliminary Resulted 07/29/17 04:30 Blood Blood Culture - Preliminary Resulted 07/29/17 18:00 Nasopharynx Influenza Types A,B Antigen (JOSE ALFREDO) - Final Complete 07/29/17 05:45 Urine,Clean Catch Urine Culture - Preliminary Gram Negative Bacillus 1 Resulted Laboratory Tests Test 07/31/17 04:05 07/31/17 10:50 White Blood Count 14.1 K/UL (4.8-10.8) H Red Blood Count 2.82 M/UL (4.70-6.10) L Hemoglobin 8.2 G/DL (14.2-18.0) L Hematocrit 25.8 % (42.0-52.0) L Mean Corpuscular Volume 92 FL (80-99) Mean Corpuscular Hemoglobin 29.2 PG (27.0-31.0) Mean Corpuscular Hemoglobin Concent 31.9 G/DL (32.0-36.0) L Red Cell Distribution Width 19.1 % (11.6-14.8) H Platelet Count 445 K/UL (150-450) Mean Platelet Volume 6.0 FL (6.5-10.1) L Neutrophils (%) (Auto) 76.6 % (45.0-75.0) H Lymphocytes (%) (Auto) 11.0 % (20.0-45.0) L Monocytes (%) (Auto) 9.5 % (1.0-10.0) Eosinophils (%) (Auto) 2.5 % (0.0-3.0) Basophils (%) (Auto) 0.4 % (0.0-2.0) Activated Partial Thromboplast Time 59 SEC (23-33) H 77 SEC (23-33) H Sodium Level 138 MMOL/L (136-145) Potassium Level 3.2 MMOL/L (3.5-5.1) L Chloride Level 102 MMOL/L (98-107) Carbon Dioxide Level 29 MMOL/L (21-32) Anion Gap 7 mmol/L (5-15) Blood Urea Nitrogen 41 mg/dL (7-18) H Creatinine 2.7 MG/DL (0.55-1.30) H Estimat Glomerular Filtration Rate mL/min (>60) Glucose Level 154 MG/DL (74-106) H Calcium Level 7.9 MG/DL (8.5-10.1) L Current Medications Medications (Trade) Dose Ordered Sig/Jaime Route PRN Reason Start Time Stop Time Status Last Admin Dose Admin Acetaminophen (Tylenol) 650 mg Q4H PRN ORAL Fever 07/29/17 14:00 08/28/17 13:59 Albuterol/ Ipratropium (Albuterol/ Ipratropium) 3 ml Q4H PRN HHN Shortness of Breath 07/29/17 14:00 08/03/17 13:59 Aspirin (Ecotrin) 81 mg DAILY ORAL 07/30/17 09:00 08/29/17 08:59 07/31/17 08:31 Dextrose (Dextrose 50%) STAT PRN IV Hypoglycemia 07/29/17 14:00 08/28/17 13:59 Epoetin Russ (Procrit (for ESRD on dialysis)) 7,000 units MON-WED-MON SUBQ 07/31/17 21:00 08/30/17 20:59 Heparin Sodium/ Dextrose 500 ml @ 27.651 mls/ hr adjust per protocol IV 07/31/17 05:15 08/30/17 05:14 07/31/17 05:30 Metoprolol Tartrate (Lopressor) 25 mg EVERY 12 HOURS ORAL 07/29/17 21:00 08/28/17 20:59 Ondansetron HCl (Zofran) 4 mg Q6H PRN IVP Nausea & Vomiting 07/29/17 14:00 08/28/17 13:59 Piperacillin Sod/ Tazobactam Sod 2.25 gm/Sodium Chloride 55 ml @ 110 mls/hr Q8H IVPB 07/29/17 16:00 08/05/17 23:59 07/31/17 08:24 Polyethylene Glycol (Miralax) 17 gm DAILYPRN PRN ORAL Constipation 07/29/17 14:00 08/28/17 13:59 Quetiapine Fumarate (SEROquel) 25 mg BEDTIME ORAL 07/29/17 21:00 08/28/17 20:59 Temazepam (Restoril) 15 mg HSPRN PRN ORAL Insomnia 07/29/17 14:00 08/05/17 13:59 Vancomycin HCl (Vanco rx to dose) 1 ea DAILY PRN MISC Per rx protocol 07/29/17 13:00 08/28/17 12:59 Vitamin A/Vitamin D (A & D Oint) 1 applic EVERY 12 HOURS TOPIC 07/31/17 10:00 08/30/17 09:59 07/31/17 10:33 Vitamin B Complex/ Vit C/Folic Acid (Nephrovite) 1 tab DAILY ORAL 07/30/17 12:15 08/29/17 12:14 07/31/17 08:31 Mahi Marin M.D. Jul 31, 2017 12:09
--- NOTE | 2017-07-31 12:22 | Pulmonolgy Critical Care Note ---
Critical Care - Asmt/Plan Problems: (1) Acute respiratory failure with hypoxemia (2) Sepsis (3) Bacteremia (4) Dyspnea (5) Osteomyelitis (6) End-stage renal disease (7) Malnutrition of moderate degree Respiratory: monitor respiratory rate, adjust FIO2 Renal: F/U I&O, other - HD by nephrology, Infectious Disease: continue antibiotics, other - abx were chagned by ID Gastrointestinal: continue feedings/current rate Endocrine: monitor blood sugar Hematologic: monitor H/H, transfuse if hgb<8.5 Neurologic: keep patient comfortable Affect: PRN ativan Prophylaxis: Protonix Notes Reviewed: sonogram technician, cardio Discussed with: nurses, consultants, 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 - Objective Last 24 Hour Vital Signs Date Time Temp Pulse Resp B/P (MAP) Pulse Ox O2 Delivery O2 Flow Rate FiO2 07/31/17 12:00 40 07/31/17 10:37 100 27 99 Facial 40 07/31/17 08:40 107 23 96 Facial 40 07/31/17 08:31 104 99/55 07/31/17 08:00 40 07/31/17 08:00 102 07/31/17 08:00 98.7 104 44 100/56 100 Bi-pap 40 07/31/17 06:47 105 24 98 Facial 40 07/31/17 06:47 Bi-pap 40 07/31/17 05:00 40 07/31/17 04:58 101 33 98 Facial 40 07/31/17 04:00 109 07/31/17 04:00 97.0 110 33 105/62 98 Bi-pap 40 07/31/17 00:00 96.7 106 36 110/64 96 Venturi Mask 10.0 45 07/31/17 00:00 99 07/30/17 20:34 105 95/57 07/30/17 20:00 97.2 105 36 95/57 99 Venturi Mask 10.0 45 07/30/17 20:00 99 07/30/17 18:58 Venturi Mask 10.0 45 07/30/17 16:24 100 07/30/17 16:00 40 07/30/17 16:00 98.2 108 25 103/57 96 Bi-pap 40 07/30/17 14:45 82 32 98 Facial 40 07/30/17 13:09 86 32 97 Facial 40 Status: awake Condition: critical HEENT: atraumatic, normocephalic Lungs: clear Heart: HR/BP stable Abdomen: soft, non-tender Extremities: no C/C/E, edema Decubiti: location, stage Micro: Microbiology Date/Time Source Procedure Growth Status 07/29/17 04:40 Blood Blood Culture - Preliminary Resulted 07/29/17 04:30 Blood Blood Culture - Preliminary Resulted 07/29/17 18:00 Nasopharynx Influenza Types A,B Antigen (JOSE ALFREDO) - Final Complete 07/29/17 05:45 Urine,Clean Catch Urine Culture - Preliminary Gram Negative Bacillus 1 Resulted Accucheck: 165 Critical Care - Subjective Interval Events: still on bipap, Blood cultures are positive Condition: critical EKG Rhythm: Sinus Rhythm FI02: 40 Vent Support Mode: BiLevel Sputum Amount: None Tube Feeding Amount: 0 I&O: Intake and Output 07/30/17 07/31/17 19:00 07:00 Intake Total 1207.229 ml 870.807 ml Output Total 50 ml Balance 1157.229 ml 870.807 ml Free Water 200 ml IV Total 477.229 ml 470.807 ml Tube Feeding 480 ml 320 ml Other 50 ml 80 ml Output Urine Total 50 ml # Bowel Movements 3 CXR: bilateral effusion, Labs: Laboratory Tests Test 07/31/17 04:05 07/31/17 10:50 White Blood Count 14.1 K/UL (4.8-10.8) H Red Blood Count 2.82 M/UL (4.70-6.10) L Hemoglobin 8.2 G/DL (14.2-18.0) L Hematocrit 25.8 % (42.0-52.0) L Mean Corpuscular Volume 92 FL (80-99) Mean Corpuscular Hemoglobin 29.2 PG (27.0-31.0) Mean Corpuscular Hemoglobin Concent 31.9 G/DL (32.0-36.0) L Red Cell Distribution Width 19.1 % (11.6-14.8) H Platelet Count 445 K/UL (150-450) Mean Platelet Volume 6.0 FL (6.5-10.1) L Neutrophils (%) (Auto) 76.6 % (45.0-75.0) H Lymphocytes (%) (Auto) 11.0 % (20.0-45.0) L Monocytes (%) (Auto) 9.5 % (1.0-10.0) Eosinophils (%) (Auto) 2.5 % (0.0-3.0) Basophils (%) (Auto) 0.4 % (0.0-2.0) Activated Partial Thromboplast Time 59 SEC (23-33) H 77 SEC (23-33) H Sodium Level 138 MMOL/L (136-145) Potassium Level 3.2 MMOL/L (3.5-5.1) L Chloride Level 102 MMOL/L (98-107) Carbon Dioxide Level 29 MMOL/L (21-32) Anion Gap 7 mmol/L (5-15) Blood Urea Nitrogen 41 mg/dL (7-18) H Creatinine 2.7 MG/DL (0.55-1.30) H Estimat Glomerular Filtration Rate mL/min (>60) Glucose Level 154 MG/DL (74-106) H Calcium Level 7.9 MG/DL (8.5-10.1) L DAMIAN OGDEN Jul 31, 2017 12:22
--- NOTE | 2017-07-31 13:49 | Nephrology Progress Note ---
Assessment/Plan Problem List: (1) End-stage renal disease (2) Acute respiratory failure with hypoxemia (3) CHF (congestive heart failure) (4) Sepsis (5) Anemia (6) UTI (urinary tract infection) Assessment (1) End-stage renal disease, Has permacath on left chest (2) Malnutrition of moderate degree (3) Anemia (4) Sepsis (5) UTI (urinary tract infection) (6) Acute respiratory failure with hypoxemia Plan Status: HD in am- Per ID- Monitor lytes- check Am cortisol level- 2D echo- Subjective ROS Limited/Unobtainable: No Constitutional: Reports: malaise, weakness Objective Objective Last 24 Hour Vital Signs Date Time Temp Pulse Resp B/P (MAP) Pulse Ox O2 Delivery O2 Flow Rate FiO2 07/31/17 12:42 100 21 99 Facial 40 07/31/17 12:00 40 07/31/17 10:37 100 27 99 Facial 40 07/31/17 08:40 107 23 96 Facial 40 07/31/17 08:31 104 99/55 07/31/17 08:00 40 07/31/17 08:00 102 07/31/17 08:00 98.7 104 44 100/56 100 Bi-pap 40 07/31/17 06:47 105 24 98 Facial 40 07/31/17 06:47 Bi-pap 40 07/31/17 05:00 40 07/31/17 04:58 101 33 98 Facial 40 07/31/17 04:00 109 07/31/17 04:00 97.0 110 33 105/62 98 Bi-pap 40 07/31/17 00:00 96.7 106 36 110/64 96 Venturi Mask 10.0 45 07/31/17 00:00 99 07/30/17 20:34 105 95/57 07/30/17 20:00 97.2 105 36 95/57 99 Venturi Mask 10.0 45 07/30/17 20:00 99 07/30/17 18:58 Venturi Mask 10.0 45 07/30/17 16:24 100 07/30/17 16:00 40 07/30/17 16:00 98.2 108 25 103/57 96 Bi-pap 40 07/30/17 14:45 82 32 98 Facial 40 Intake and Output 07/30/17 07/31/17 19:00 07:00 Intake Total 1207.229 ml 870.807 ml Output Total 50 ml Balance 1157.229 ml 870.807 ml Free Water 200 ml IV Total 477.229 ml 470.807 ml Tube Feeding 480 ml 320 ml Other 50 ml 80 ml Output Urine Total 50 ml # Bowel Movements 3 Laboratory Tests 07/31/17 04:05: White Blood Count 14.1H, Red Blood Count 2.82L, Hemoglobin 8.2L, Hematocrit 25.8L, Mean Corpuscular Volume 92, Mean Corpuscular Hemoglobin 29.2, Mean Corpuscular Hemoglobin Concent 31.9L, Red Cell Distribution Width 19.1H, Platelet Count 445, Mean Platelet Volume 6.0L, Neutrophils (%) (Auto) 76.6H, Lymphocytes (%) (Auto) 11.0L, Monocytes (%) (Auto) 9.5, Eosinophils (%) (Auto) 2.5, Basophils (%) (Auto) 0.4, Activated Partial Thromboplast Time 59H, Sodium Level 138, Potassium Level 3.2L, Chloride Level 102, Carbon Dioxide Level 29, Anion Gap 7, Blood Urea Nitrogen 41H, Creatinine 2.7H, Estimat Glomerular Filtration Rate , Glucose Level 154H, Calcium Level 7.9L 07/31/17 10:50: Activated Partial Thromboplast Time 77H Height (Feet): 6 Weight (Pounds): 127 General Appearance: mild distress EENT: other - on BIPAP Cardiovascular: tachycardia Respiratory/Chest: decreased breath sounds, other - left side permacath Abdomen: distended Extremities: other - UE contractions DEXTER BURCIAGA Jul 31, 2017 13:49
--- NOTE | 2017-07-31 15:31 | General Progress Note ---
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 RENAL FAILURE IN NEED OF HEMODIALYSIS Subjective Allergies: Coded Allergies: No Known Allergies (Unverified , 06/18/17) Subjective 07/31/2017 HAD DEVELOPED YACHPNEA WHILE ON MASK SO HE IS BACK ON BIPAP MORE ALERT patient has developed decreased mentation and was brought into [place] [facility] he is taking antibiocs and seems more alert Objective Last 24 Hour Vital Signs Date Time Temp Pulse Resp B/P (MAP) Pulse Ox O2 Delivery O2 Flow Rate FiO2 07/31/17 14:31 104 31 99 Facial 40 07/31/17 12:42 100 21 99 Facial 40 07/31/17 12:00 98.4 103 20 90/51 96 Bi-pap 40 07/31/17 12:00 100 07/31/17 12:00 40 07/31/17 10:37 100 27 99 Facial 40 07/31/17 08:40 107 23 96 Facial 40 07/31/17 08:31 104 99/55 07/31/17 08:00 40 07/31/17 08:00 102 07/31/17 08:00 98.7 104 44 100/56 100 Bi-pap 40 07/31/17 06:47 105 24 98 Facial 40 07/31/17 06:47 Bi-pap 40 07/31/17 05:00 40 07/31/17 04:58 101 33 98 Facial 40 07/31/17 04:00 109 07/31/17 04:00 97.0 110 33 105/62 98 Bi-pap 40 07/31/17 00:00 96.7 106 36 110/64 96 Venturi Mask 10.0 45 07/31/17 00:00 99 07/30/17 20:34 105 95/57 07/30/17 20:00 97.2 105 36 95/57 99 Venturi Mask 10.0 45 07/30/17 20:00 99 07/30/17 18:58 Venturi Mask 10.0 45 07/30/17 16:24 100 07/30/17 16:00 40 07/30/17 16:00 98.2 108 25 103/57 96 Bi-pap 40 Intake and Output 07/30/17 07/31/17 19:00 07:00 Intake Total 1207.229 ml 870.807 ml Output Total 50 ml Balance 1157.229 ml 870.807 ml Free Water 200 ml IV Total 477.229 ml 470.807 ml Tube Feeding 480 ml 320 ml Other 50 ml 80 ml Output Urine Total 50 ml # Bowel Movements 3 Laboratory Tests 07/31/17 04:05: White Blood Count 14.1H, Red Blood Count 2.82L, Hemoglobin 8.2L, Hematocrit 25.8L, Mean Corpuscular Volume 92, Mean Corpuscular Hemoglobin 29.2, Mean Corpuscular Hemoglobin Concent 31.9L, Red Cell Distribution Width 19.1H, Platelet Count 445, Mean Platelet Volume 6.0L, Neutrophils (%) (Auto) 76.6H, Lymphocytes (%) (Auto) 11.0L, Monocytes (%) (Auto) 9.5, Eosinophils (%) (Auto) 2.5, Basophils (%) (Auto) 0.4, Activated Partial Thromboplast Time 59H, Sodium Level 138, Potassium Level 3.2L, Chloride Level 102, Carbon Dioxide Level 29, Anion Gap 7, Blood Urea Nitrogen 41H, Creatinine 2.7H, Estimat Glomerular Filtration Rate , Glucose Level 154H, Calcium Level 7.9L 07/31/17 05:00: C-Reactive Protein, Quantitative 26.8H 07/31/17 10:50: Activated Partial Thromboplast Time 77H Height (Feet): 6 Weight (Pounds): 127 Cardiovascular: arrhythmia, irregularly irregular Respiratory/Chest: decreased breath sounds Abdomen: non tender Jenise Warren MD Jul 31, 2017 15:31
[2017-07-31] MEDS: DAPTOmycin 350 MG in NS 55 ML IV SCH (15:38)
--- NOTE | 2017-07-31 18:23 | Cardiology Report ---
APPROVED REPORT EKG Measurement Heart [id number] Sinus rhythm with occasional premature ventricular complexes Right bundle branch block Left anterior fascicular block Bifascicular block Possible Lateral infarct, age undetermined Abnormal ECG
--- NOTE | 2017-07-31 18:41 | Cardiology Report ---
APPROVED REPORT EXAM: Two-dimensional and M-mode echocardiogram with Doppler and color Doppler. INDICATION Abnormal cardiac function Technically limited and difficult study due to poor acoustical windows. Patient contracted with both arms and on respirator. Normal left ventricular chamber size, systolic function and wall motion. Left ventricular ejection fraction estimated to be 55-60% to extend visualized. No evidence of left ventricular hypertrophy. No evidence of pericardial or pleural effusion. All other cardiac chamber sizes are within normal limits. Focal aortic valve sclerosis with adequate cusp excursion. Thickened mitral valve leaflets with normal excursion. Mild mitral annulus and aortic root calcification. Pulmonic valve is not visualized. Normal tricuspid valve structure. IVC is not obtainable. A color flow and spectral Doppler study was performed and revealed: No aortic regurgitation. No mitral regurgitation. Mitral diastolic velocities suggest reduced left ventricular relaxation c/w diastolic dysfunction grade 1. No tricuspid regurgitation.
--- NOTE | 2017-07-31 19:46 | Cardiology Progress Note ---
Assessment/Plan Assessment/Plan respiratory distress abnormal trop of unknown sig in settign of renal insuf esrd on hd pyuria. hypokalemic. deep venous thrombosis. possible pneumonia congestive heart failure, cxr reviewed personally echo personally reviewed is tech difficult not all endocardium is visible has crackles left side with increased wbc which may be suggestive of pneumonia uf as bp allows Subjective Cardiovascular: Denies: lightheadedness Respiratory: Reports: shortness of breath Gastrointestinal/Abdominal: Denies: abdominal pain Genitourinary: Reports: no symptoms Objective Last 24 Hour Vital Signs Date Time Temp Pulse Resp B/P (MAP) Pulse Ox O2 Delivery O2 Flow Rate FiO2 07/31/17 19:25 99 30 99 Facial 40 07/31/17 19:25 Bi-pap 40 07/31/17 17:08 96 31 100 Facial 40 07/31/17 16:00 40 07/31/17 16:00 99 07/31/17 16:00 99.4 105 22 118/59 97 Bi-pap 40 07/31/17 14:31 104 31 99 Facial 40 07/31/17 12:42 100 21 99 Facial 40 07/31/17 12:00 98.4 103 20 90/51 96 Bi-pap 40 07/31/17 12:00 100 07/31/17 12:00 40 07/31/17 10:37 100 27 99 Facial 40 07/31/17 08:40 107 23 96 Facial 40 07/31/17 08:31 104 99/55 07/31/17 08:00 40 07/31/17 08:00 102 07/31/17 08:00 98.7 104 44 100/56 100 Bi-pap 40 07/31/17 06:47 105 24 98 Facial 40 07/31/17 06:47 Bi-pap 40 07/31/17 05:00 40 07/31/17 04:58 101 33 98 Facial 40 07/31/17 04:00 109 07/31/17 04:00 97.0 110 33 105/62 98 Bi-pap 40 07/31/17 00:00 96.7 106 36 110/64 96 Venturi Mask 10.0 45 07/31/17 00:00 99 07/30/17 20:34 105 95/57 07/30/17 20:00 97.2 105 36 95/57 99 Venturi Mask 10.0 45 07/30/17 20:00 99 General Appearance: no apparent distress, alert Neck: supple Cardiovascular: normal rate, regular rhythm Respiratory/Chest: decreased breath sounds - right side , crackles/rales - left side Abdomen: normal bowel sounds, non tender, soft Extremities: no swelling Intake and Output 07/30/17 07/31/17 19:00 07:00 Intake Total 1207.229 ml 870.807 ml Output Total 50 ml Balance 1157.229 ml 870.807 ml Free Water 200 ml IV Total 477.229 ml 470.807 ml Tube Feeding 480 ml 320 ml Other 50 ml 80 ml Output Urine Total 50 ml # Bowel Movements 3 Laboratory Tests Test 07/31/17 04:05 07/31/17 05:00 07/31/17 10:50 White Blood Count 14.1 K/UL (4.8-10.8) H Red Blood Count 2.82 M/UL (4.70-6.10) L Hemoglobin 8.2 G/DL (14.2-18.0) L Hematocrit 25.8 % (42.0-52.0) L Mean Corpuscular Volume 92 FL (80-99) Mean Corpuscular Hemoglobin 29.2 PG (27.0-31.0) Mean Corpuscular Hemoglobin Concent 31.9 G/DL (32.0-36.0) L Red Cell Distribution Width 19.1 % (11.6-14.8) H Platelet Count 445 K/UL (150-450) Mean Platelet Volume 6.0 FL (6.5-10.1) L Neutrophils (%) (Auto) 76.6 % (45.0-75.0) H Lymphocytes (%) (Auto) 11.0 % (20.0-45.0) L Monocytes (%) (Auto) 9.5 % (1.0-10.0) Eosinophils (%) (Auto) 2.5 % (0.0-3.0) Basophils (%) (Auto) 0.4 % (0.0-2.0) Activated Partial Thromboplast Time 59 SEC (23-33) H 77 SEC (23-33) H Sodium Level 138 MMOL/L (136-145) Potassium Level 3.2 MMOL/L (3.5-5.1) L Chloride Level 102 MMOL/L (98-107) Carbon Dioxide Level 29 MMOL/L (21-32) Anion Gap 7 mmol/L (5-15) Blood Urea Nitrogen 41 mg/dL (7-18) H Creatinine 2.7 MG/DL (0.55-1.30) H Estimat Glomerular Filtration Rate mL/min (>60) Glucose Level 154 MG/DL (74-106) H Calcium Level 7.9 MG/DL (8.5-10.1) L C-Reactive Protein, Quantitative 26.8 mg/dL (0.00-0.90) H Microbiology Date/Time Source Procedure Growth Status 07/29/17 04:40 Blood Blood Culture - Preliminary Resulted 07/29/17 04:30 Blood Blood Culture - Preliminary Resulted 07/29/17 18:00 Nasopharynx Influenza Types A,B Antigen (JOSE ALFREDO) - Final Complete 07/29/17 05:45 Urine,Clean Catch Urine Culture - Preliminary Gram Negative Bacillus 1 Resulted YESENIA PEÑA Jul 31, 2017 19:46
[2017-07-31] MEDS: Metoprolol Tartrate 12.5mg TAB ORAL SCH (20:23)
[2017-07-31] MEDS ORDERED: Epogen (for ESRD on dialysis) SUBQ SCH (21:00)
[2017-07-31 22:42] LABS: INR 1.2 (0.9-1.1)
[2017-07-31] MEDS ORDERED: Warfarin Sodium 2.5mg ORAL ONE (23:00)
[2017-08-01 04:00] VITALS: BP 123/60
[2017-08-01 04:54] LABS: HEMATOCRIT 25.2 % (42.0-52.0); HEMOGLOBIN 7.8 G/DL (14.2-18.0); MEAN CORPUSCULAR VOLUME 90 FL (80-99); PLATELET COUNT 495 K/UL (150-450); RED BLOOD COUNT 2.79 M/UL (4.70-6.10); RED CELL DISTRIBUTION WIDTH 18.4 % (11.6-14.8); WHITE BLOOD COUNT 11.4 K/UL (4.8-10.8)
[2017-08-01 05:06] LABS: INR 1.2 (0.9-1.1)
[2017-08-01 05:13] LABS: GAMMA GLUTAMYL TRANSPEPTIDASE 112 U/L (5-85); PHOSPHORUS 3.6 MG/DL (2.5-4.9)
[2017-08-01 05:46] LABS: ALANINE AMINOTRANSFERASE 45 U/L (12-78); ALBUMIN 1.1 G/DL (3.4-5.0); ALBUMIN/GLOBULIN RATIO 0.2 (1.0-2.7); ALKALINE PHOSPHATASE 264 U/L (46-116); ANION GAP 9 mmol/L (5-15); ASPARTATE AMINO TRANSFERASE 71 U/L (15-37); BILIRUBIN,TOTAL 0.6 MG/DL (0.2-1.0); BLOOD UREA NITROGEN 50 mg/dL (7-18); CALCIUM 7.7 MG/DL (8.5-10.1); CARBON DIOXIDE 28 MMOL/L (21-32); CHLORIDE 100 MMOL/L (98-107); CHOLESTEROL 100 MG/DL (< 200); CREATINE KINASE 65 U/L (26-308); CREATININE 3.1 MG/DL (0.55-1.30); FERRITIN > 2000 NG/ML (8-388); HDL CHOLESTEROL 18 MG/DL (40-60); SODIUM 137 MMOL/L (136-145); TRIGLYCERIDES 181 MG/DL (30-150)
[2017-08-01 07:15] LABS: % IRON SATURATION 26 % (15-50); IRON 34 ug/dL (50-175); TOTAL IRON BINDING CAPACITY 130 ug/dL (250-450)
[2017-08-01] MEDS ORDERED: Heparin 5000 units/ml inj IV ONE (07:30)
[2017-08-01] MEDS: Heparin 25,000u/D5W 500ml 500 ML IV SCH ×2 (07:42→16:51)
[2017-08-01 08:00] VITALS: BP 103/63
[2017-08-01] MEDS: Metoprolol Tartrate 12.5mg TAB ORAL SCH ×2 (09:00→20:34)
[2017-08-01] MEDS: Aspirin EC 81mg tab ORAL SCH (09:07)
[2017-08-01] MEDS: Piperacillin/Tazobactam 2.25 GM in NS 55 ML IVPB SCH (09:08)
[2017-08-01] MEDS: Nephrovite tab (Rena-Vite) ORAL SCH (09:08)
[2017-08-01] MEDS: Vitamin A&D Oint 2oz Tube TOPIC SCH ×2 (09:09→20:33)
--- NOTE | 2017-08-01 10:21 | Pulmonolgy Critical Care Note ---
Critical Care - Asmt/Plan Problems: (1) Acute respiratory failure with hypoxemia (2) Sepsis (3) Bacteremia (4) Dyspnea (5) Osteomyelitis (6) End-stage renal disease (7) Malnutrition of moderate degree Respiratory: monitor respiratory rate, adjust FIO2 Cardiac: continue to monitor HR/BP Renal: F/U I&O, other - for HD today Infectious Disease: check cultures, continue antibiotics Gastrointestinal: continue feedings/current rate Endocrine: monitor blood sugar Hematologic: transfuse if hgb<8.5 Neurologic: PRN Ativan, keep patient comfortable Affect: PRN ativan Notes Reviewed: cardio, renal Discussed with: nurses, 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 - Objective Last 24 Hour Vital Signs Date Time Temp Pulse Resp B/P (MAP) Pulse Ox O2 Delivery O2 Flow Rate FiO2 08/01/17 09:29 96 32 96 Facial 40 08/01/17 09:00 102 103/63 08/01/17 08:00 96.9 102 20 103/63 97 Bi-pap 40 08/01/17 07:27 Bi-pap 40 08/01/17 07:27 96 32 96 Facial 40 08/01/17 05:02 104 34 98 Facial 40 08/01/17 04:00 40 08/01/17 04:00 97.5 101 20 123/60 99 Bi-pap 40 08/01/17 04:00 96 08/01/17 03:29 99 33 99 Facial 40 08/01/17 01:10 99 28 98 Facial 40 08/01/17 00:00 40 08/01/17 00:00 103 07/31/17 23:54 97.2 95 16 111/49 99 Bi-pap 40 07/31/17 23:17 101 36 97 Facial 40 07/31/17 21:20 101 29 98 Facial 40 07/31/17 20:23 95 105/49 07/31/17 20:00 40 07/31/17 20:00 99 07/31/17 19:50 97.9 95 22 105/49 99 Bi-pap 40 07/31/17 19:25 99 30 99 Facial 40 07/31/17 19:25 Bi-pap 40 07/31/17 17:08 96 31 100 Facial 40 07/31/17 16:00 40 07/31/17 16:00 99 07/31/17 16:00 99.4 105 22 118/59 97 Bi-pap 40 07/31/17 14:31 104 31 99 Facial 40 07/31/17 12:42 100 21 99 Facial 40 07/31/17 12:00 98.4 103 20 90/51 96 Bi-pap 40 07/31/17 12:00 100 07/31/17 12:00 40 07/31/17 10:37 100 27 99 Facial 40 Status: awake Condition: critical HEENT: atraumatic Lungs: clear Heart: HR/BP stable, regular Abdomen: soft, active bowel sounds, feeding tube Extremities: edema Decubiti: location Micro: Microbiology Date/Time Source Procedure Growth Status 07/29/17 18:00 Nasopharynx Influenza Types A,B Antigen (JOSE ALFREDO) - Final Complete 07/30/17 03:00 Rectum VRE Culture - Final Enterococcus Faecalis - Vre Complete Accucheck: 144 Critical Care - Subjective ROS Limited/Unobtainable: Yes Interval Events: still on bipap, opening eyes, not communicationg FI02: 40 Vent Support Mode: BiLevel Sputum Amount: None Tube Feeding Amount: 40 I&O: Intake and Output 07/31/17 08/01/17 19:00 07:00 Intake Total 1136.812 ml 884.161 ml Output Total 0 ml 30 ml Balance 1136.812 ml 854.161 ml Free Water 170 ml IV Total 496.812 ml 414.161 ml Tube Feeding 440 ml 320 ml Other 30 ml 150 ml Output Urine Total 0 ml 30 ml DAMIAN OGDEN Aug 01, 2017 10:21
--- NOTE | 2017-08-01 11:36 | Diagnostic Imaging Report ---
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 RIGHT LEG: Venous imaging reveals chronic thrombus in the common, superficial femoral and popliteal veins. Remainder of the deep venous system is within normal limits. There is no evidence of thrombus within the tibial segments. The greater saphenous vein is also within normal limits. Doppler indicates normal spontaneous flow within these segments. LEFT LEG: Venous imaging reveals chronic thrombus in the common, superficial femoral and popliteal veins. Remainder of the deep venous system is within normal limits. There is no evidence of thrombus within the tibial segments. The greater saphenous vein is also within normal limits. Doppler indicates normal spontaneous flow within these segments. There is no evidence of acute deep vein thrombosis.
[2017-08-01 12:00] VITALS: BP 108/54
--- NOTE | 2017-08-01 14:25 | Cardiology Progress Note ---
Assessment/Plan Assessment/Plan respiratory distress abnormal trop of unknown sig in settign of renal insuf esrd on hd pyuria. hypokalemic. deep venous thrombosis. possible pneumonia congestive heart failure, cxr reviewed personally on 07/31 echo personally reviewed is tech difficult not all endocardium is visible on 07/31 increased wbc which may be suggestive of pneumonia uf as bp allows trop no peak nor sharmaine to be diagnostic of coronary syndrome level min elevated not high enough for diagnosis of mi not a candidate for further cardiac testing uf / dialysis abx is on bb is on Coumadin Subjective ROS Limited/Unobtainable: Yes Objective Last 24 Hour Vital Signs Date Time Temp Pulse Resp B/P (MAP) Pulse Ox O2 Delivery O2 Flow Rate FiO2 08/01/17 12:00 97.0 87 20 108/54 96 Bi-pap 40 08/01/17 12:00 55 08/01/17 11:43 97 08/01/17 11:12 100 20 99 08/01/17 09:29 96 32 96 Facial 40 08/01/17 09:00 102 103/63 08/01/17 08:00 96.9 102 20 103/63 97 Bi-pap 40 08/01/17 08:00 40 08/01/17 08:00 90 08/01/17 07:27 Bi-pap 40 08/01/17 07:27 96 32 96 Facial 40 08/01/17 05:02 104 34 98 Facial 40 08/01/17 04:00 40 08/01/17 04:00 97.5 101 20 123/60 99 Bi-pap 40 08/01/17 04:00 96 08/01/17 03:29 99 33 99 Facial 40 08/01/17 01:10 99 28 98 Facial 40 08/01/17 00:00 40 08/01/17 00:00 103 07/31/17 23:54 97.2 95 16 111/49 99 Bi-pap 40 07/31/17 23:17 101 36 97 Facial 40 07/31/17 21:20 101 29 98 Facial 40 07/31/17 20:23 95 105/49 07/31/17 20:00 40 07/31/17 20:00 99 07/31/17 19:50 97.9 95 22 105/49 99 Bi-pap 40 07/31/17 19:25 99 30 99 Facial 40 07/31/17 19:25 Bi-pap 40 07/31/17 17:08 96 31 100 Facial 40 07/31/17 16:00 40 07/31/17 16:00 99 07/31/17 16:00 99.4 105 22 118/59 97 Bi-pap 40 07/31/17 14:31 104 31 99 Facial 40 General Appearance: no apparent distress, other - on dialysis and on oxygen by face mask Neck: supple Cardiovascular: regular rhythm Respiratory/Chest: lungs clear - ant Abdomen: normal bowel sounds, non tender, soft Extremities: no swelling Intake and Output 07/31/17 08/01/17 19:00 07:00 Intake Total 1136.812 ml 884.161 ml Output Total 0 ml 30 ml Balance 1136.812 ml 854.161 ml Free Water 170 ml IV Total 496.812 ml 414.161 ml Tube Feeding 440 ml 320 ml Other 30 ml 150 ml Output Urine Total 0 ml 30 ml Laboratory Tests Test 07/31/17 22:00 08/01/17 04:15 08/01/17 09:40 Prothrombin Time 12.5 SEC (9.30-11.50) H 12.7 SEC (9.30-11.50) H Prothromb Time International Ratio 1.2 (0.9-1.1) H 1.2 (0.9-1.1) H White Blood Count 11.4 K/UL (4.8-10.8) H Red Blood Count 2.79 M/UL (4.70-6.10) L Hemoglobin 7.8 G/DL (14.2-18.0) L Hematocrit 25.2 % (42.0-52.0) L Mean Corpuscular Volume 90 FL (80-99) Mean Corpuscular Hemoglobin 28.2 PG (27.0-31.0) Mean Corpuscular Hemoglobin Concent 31.1 G/DL (32.0-36.0) L Red Cell Distribution Width 18.4 % (11.6-14.8) H Platelet Count 495 K/UL (150-450) H Mean Platelet Volume 5.9 FL (6.5-10.1) L Neutrophils (%) (Auto) % (45.0-75.0) Lymphocytes (%) (Auto) % (20.0-45.0) Monocytes (%) (Auto) % (1.0-10.0) Eosinophils (%) (Auto) % (0.0-3.0) Basophils (%) (Auto) % (0.0-2.0) Activated Partial Thromboplast Time 64 SEC (23-33) H Sodium Level 137 MMOL/L (136-145) Potassium Level 3.0 MMOL/L (3.5-5.1) L Chloride Level 100 MMOL/L (98-107) Carbon Dioxide Level 28 MMOL/L (21-32) Anion Gap 9 mmol/L (5-15) Blood Urea Nitrogen 50 mg/dL (7-18) H Creatinine 3.1 MG/DL (0.55-1.30) H Estimat Glomerular Filtration Rate mL/min (>60) Glucose Level 155 MG/DL (74-106) H Hemoglobin A1c 5.3 % (4.3-6.0) Uric Acid 4.9 MG/DL (2.6-7.2) Calcium Level 7.7 MG/DL (8.5-10.1) L Phosphorus Level 3.6 MG/DL (2.5-4.9) Magnesium Level 1.9 MG/DL (1.8-2.4) Iron Level 34 ug/dL (50-175) L Total Iron Binding Capacity 130 ug/dL (250-450) L Percent Iron Saturation 26 % (15-50) Unsaturated Iron Binding 96 ug/dL (112-346) L Ferritin > 2000 NG/ML (8-388) H Total Bilirubin 0.6 MG/DL (0.2-1.0) Gamma Glutamyl Transpeptidase 112 U/L (5-85) H Aspartate Amino Transf (AST/SGOT) 71 U/L (15-37) H Alanine Aminotransferase (ALT/SGPT) 45 U/L (12-78) Alkaline Phosphatase 264 U/L (46-116) H Total Creatine Kinase 65 U/L (26-308) Troponin I 0.090 ng/mL (0.000-0.056) Pro-B-Type Natriuretic Peptide 8109 pg/mL (0-125) H Total Protein 6.5 G/DL (6.4-8.2) Albumin 1.1 G/DL (3.4-5.0) L Globulin 5.4 g/dL Albumin/Globulin Ratio 0.2 (1.0-2.7) L Triglycerides Level 181 MG/DL (30-150) H Cholesterol Level 100 MG/DL (< 200) LDL Cholesterol 58 mg/dL (<100) HDL Cholesterol 18 MG/DL (40-60) L Cholesterol/HDL Ratio 5.6 (3.3-4.4) H Vitamin B12 Level 1400 PG/ML (193-986) H Folate 18.0 NG/ML (8.6-58.9) Thyroid Stimulating Hormone (TSH) 2.931 uiU/mL (0.358-3.740) Cortisol AM Sample Pending Arterial Blood pH 7.430 (7.350-7.450) Arterial Blood Partial Pressure CO2 42.7 mmHg (35.0-45.0) Arterial Blood Partial Pressure O2 64.4 mmHg (75.0-100.0) L Arterial Blood HCO3 27.7 mmol/L (22.0-26.0) H Arterial Blood Oxygen Saturation 91.7 % (92.0-98.0) L Arterial Blood Base Excess 3.1 Jones Test Positive Microbiology Date/Time Source Procedure Growth Status 07/29/17 18:00 Nasopharynx Influenza Types A,B Antigen (JOSE ALFREDO) - Final Complete 07/30/17 03:00 Rectum VRE Culture - Final Enterococcus Faecalis - Vre Complete YESENIA PEÑA Aug 01, 2017 14:24
--- NOTE | 2017-08-01 14:57 | Diagnostic Imaging Report ---
Indication: Dyspnea Technique: One view of the chest Comparison: 07/31/2017 Findings: Patient is rotated to the right. There is increasing opacification of the right hemithorax. Apparent rightward tracheal deviation is probably just an artifact due to the rotation but could be real, indicating a component of right lung atelectasis. Hazy left lung opacity and likely small left pleural effusion persists. Left chest tunneled dialysis catheter is again demonstrated. Impression: Increasing right lung opacification, suspect combination of increasing pleural fluid and increasing parenchymal atelectasis Persistent left lung hazy opacity, likely persistent pleural fluid Other findings as noted
--- NOTE | 2017-08-01 15:04 | Nephrology Progress Note ---
Assessment/Plan Problem List: (1) End-stage renal disease (2) Acute respiratory failure with hypoxemia (3) CHF (congestive heart failure) (4) Sepsis (5) Anemia Assessment: severe (6) UTI (urinary tract infection) Assessment (1) End-stage renal disease, Has permacath on left chest (2) Malnutrition of moderate degree, sever low albumin of 1.1 (3) Anemia (4) Sepsis (5) UTI (urinary tract infection) (6) Acute respiratory failure with hypoxemia Plan Status: HD today- transfuse ? 2 units Per ID- Monitor lytes- check Am cortisol level- 2D echo- Subjective ROS Limited/Unobtainable: No Constitutional: Reports: malaise, weakness Objective Objective Last 24 Hour Vital Signs Date Time Temp Pulse Resp B/P (MAP) Pulse Ox O2 Delivery O2 Flow Rate FiO2 08/01/17 14:15 99 20 98 08/01/17 12:00 97.0 87 20 108/54 96 Bi-pap 40 08/01/17 12:00 Simple Mask 10.0 40 08/01/17 12:00 55 08/01/17 11:43 97 08/01/17 11:12 100 20 99 08/01/17 09:29 96 32 96 Facial 40 08/01/17 09:00 102 103/63 08/01/17 08:00 96.9 102 20 103/63 97 Bi-pap 40 08/01/17 08:00 40 08/01/17 08:00 90 08/01/17 07:27 Bi-pap 40 08/01/17 07:27 96 32 96 Facial 40 08/01/17 05:02 104 34 98 Facial 40 08/01/17 04:00 40 08/01/17 04:00 97.5 101 20 123/60 99 Bi-pap 40 08/01/17 04:00 96 08/01/17 03:29 99 33 99 Facial 40 08/01/17 01:10 99 28 98 Facial 40 08/01/17 00:00 40 08/01/17 00:00 103 07/31/17 23:54 97.2 95 16 111/49 99 Bi-pap 40 07/31/17 23:17 101 36 97 Facial 40 07/31/17 21:20 101 29 98 Facial 40 07/31/17 20:23 95 105/49 07/31/17 20:00 40 2/5/18 20:00 99 07/31/17 19:50 97.9 95 22 105/49 99 Bi-pap 40 07/31/17 19:25 99 30 99 Facial 40 07/31/17 19:25 Bi-pap 40 07/31/17 17:08 96 31 100 Facial 40 07/31/17 16:00 40 07/31/17 16:00 99 07/31/17 16:00 99.4 105 22 118/59 97 Bi-pap 40 Intake and Output 07/31/17 08/01/17 19:00 07:00 Intake Total 1136.812 ml 884.161 ml Output Total 0 ml 30 ml Balance 1136.812 ml 854.161 ml Free Water 170 ml IV Total 496.812 ml 414.161 ml Tube Feeding 440 ml 320 ml Other 30 ml 150 ml Output Urine Total 0 ml 30 ml Laboratory Tests 07/31/17 22:00: Prothrombin Time 12.5H, Prothromb Time International Ratio 1.2H 08/01/17 04:15: Prothrombin Time 12.7H, Prothromb Time International Ratio 1.2H, White Blood Count 11.4H, Red Blood Count 2.79L, Hemoglobin 7.8L, Hematocrit 25.2L, Mean Corpuscular Volume 90, Mean Corpuscular Hemoglobin 28.2, Mean Corpuscular Hemoglobin Concent 31.1L, Red Cell Distribution Width 18.4H, Platelet Count 495H , Mean Platelet Volume 5.9L, Neutrophils (%) (Auto) , Lymphocytes (%) (Auto) , Monocytes (%) (Auto) , Eosinophils (%) (Auto) , Basophils (%) (Auto) , Activated Partial Thromboplast Time 64H, Sodium Level 137, Potassium Level 3.0L , Chloride Level 100, Carbon Dioxide Level 28, Anion Gap 9, Blood Urea Nitrogen 50H, Creatinine 3.1H, Estimat Glomerular Filtration Rate , Glucose Level 155H, Hemoglobin A1c 5.3, Uric Acid 4.9, Calcium Level 7.7L, Phosphorus Level 3.6, Magnesium Level 1.9, Iron Level 34L, Total Iron Binding Capacity 130L, Percent Iron Saturation 26, Unsaturated Iron Binding 96L, Ferritin > 2000H, Total Bilirubin 0.6, Gamma Glutamyl Transpeptidase 112H, Aspartate Amino Transf (AST/ SGOT) 71H, Alanine Aminotransferase (ALT/SGPT) 45, Alkaline Phosphatase 264H, Total Creatine Kinase 65, Troponin I 0.090H, Pro-B-Type Natriuretic Peptide 8109H, Total Protein 6.5, Albumin 1.1L, Globulin 5.4, Albumin/Globulin Ratio 0.2L, Triglycerides Level 181H, Cholesterol Level 100, LDL Cholesterol 58, HDL Cholesterol 18L, Cholesterol/HDL Ratio 5.6H, Vitamin B12 Level 1400H, Folate 18.0, Thyroid Stimulating Hormone (TSH) 2.931, Cortisol AM Sample [Pending] 08/01/17 09:40: Arterial Blood pH 7.430, Arterial Blood Partial Pressure CO2 42.7, Arterial Blood Partial Pressure O2 64.4L, Arterial Blood HCO3 27.7H, Arterial Blood Oxygen Saturation 91.7L, Arterial Blood Base Excess 3.1, Jones Test Positive 08/01/17 14:20: Activated Partial Thromboplast Time 70H Height (Feet): 6 Weight (Pounds): 160 General Appearance: mild distress Cardiovascular: tachycardia Respiratory/Chest: decreased breath sounds Abdomen: distended DEXTER BURCIAGA Aug 01, 2017 15:04
--- NOTE | 2017-08-01 15:30 | Infectious Diseases Prog Note ---
Assessment/Plan Assessment/Plan Abx: IV Vanco 2/3- Zosyn 2/3- Assessment: Sepsis, likely 2ry to UTI and bacteremia- r/o recurrence MRSA bacteremia- r/o endocarditis -u/a wbc tntc, nit +, leuk +3; ux >100K E. aerognes,?ESBL (S cipro, bactrim Ertapenem), GNB #2 -CXR 08/01:: Increasing right lung opacification, suspect combination of increasing pleural fluid and increasing parenchymal atelectasis -Bcx 07/29 2/4 S. aureus (sensi pending) -r/o endocarditis -TTE: no obvious vegetations. Focal aortic valve sclerosis with adequate cusp excursion.Thickened mitral valve leaflets with normal excursion. Mild mitral annulus and aortic root calcification. 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 aureus bacteremia pending sensi -weekly CPK -2/5 SP IV Vancomycin #3 -switch Zosyn #4 To Meropenem pending ID and sensi GNR #2 Ucx -f/u Repeat 2 sets of Bcx (one from HD cATH)- MAY NEED REMOVAL PENDING ID AND REPEAT BCX -may need RAFAEL if persistent bacteremia -f/u cx -Monitor CBC/BMP, temperatures -wound care -aspiration precautions Thank you for this consultation. Will continue to follow along with you. Discussed with RN. Subjective Allergies: Coded Allergies: No Known Allergies (Unverified , 06/18/17) Subjective afebrile in 72 hrs leukocytosis improving Bacteremic S. aureus repeat Bcx p Objective Vital Signs Last 24 Hour Vital Signs Date Time Temp Pulse Resp B/P (MAP) Pulse Ox O2 Delivery O2 Flow Rate FiO2 08/01/17 14:15 99 20 98 08/01/17 12:00 97.0 87 20 108/54 96 Bi-pap 40 08/01/17 12:00 Simple Mask 10.0 40 08/01/17 12:00 55 08/01/17 11:43 97 08/01/17 11:12 100 20 99 08/01/17 09:29 96 32 96 Facial 40 08/01/17 09:00 102 103/63 08/01/17 08:00 96.9 102 20 103/63 97 Bi-pap 40 08/01/17 08:00 40 08/01/17 08:00 90 08/01/17 07:27 Bi-pap 40 08/01/17 07:27 96 32 96 Facial 40 08/01/17 05:02 104 34 98 Facial 40 08/01/17 04:00 40 08/01/17 04:00 97.5 101 20 123/60 99 Bi-pap 40 08/01/17 04:00 96 08/01/17 03:29 99 33 99 Facial 40 08/01/17 01:10 99 28 98 Facial 40 08/01/17 00:00 40 08/01/17 00:00 103 07/31/17 23:54 97.2 95 16 111/49 99 Bi-pap 40 07/31/17 23:17 101 36 97 Facial 40 07/31/17 21:20 101 29 98 Facial 40 07/31/17 20:23 95 105/49 07/31/17 20:00 40 07/31/17 20:00 99 07/31/17 19:50 97.9 95 22 105/49 99 Bi-pap 40 07/31/17 19:25 99 30 99 Facial 40 07/31/17 19:25 Bi-pap 40 07/31/17 17:08 96 31 100 Facial 40 07/31/17 16:00 40 07/31/17 16:00 99 07/31/17 16:00 99.4 105 22 118/59 97 Bi-pap 40 Height (Feet): 6 Weight (Pounds): 160 Objective General Appearance: lethargic - non bverbal on bipap Respiratory/Chest: decreased breath sounds Abdomen: non tender Skin: no rashes/lesions Microbiology Date/Time Source Procedure Growth Status 07/29/17 18:00 Nasopharynx Influenza Types A,B Antigen (JOSE ALFREDO) - Final Complete 07/30/17 03:00 Rectum VRE Culture - Final Enterococcus Faecalis - Vre Complete Laboratory Tests Test 07/31/17 22:00 08/01/17 04:15 08/01/17 09:40 08/01/17 14:20 Prothrombin Time 12.5 SEC (9.30-11.50) H 12.7 SEC (9.30-11.50) H Prothromb Time International Ratio 1.2 (0.9-1.1) H 1.2 (0.9-1.1) H White Blood Count 11.4 K/UL (4.8-10.8) H Red Blood Count 2.79 M/UL (4.70-6.10) L Hemoglobin 7.8 G/DL (14.2-18.0) L Hematocrit 25.2 % (42.0-52.0) L Mean Corpuscular Volume 90 FL (80-99) Mean Corpuscular Hemoglobin 28.2 PG (27.0-31.0) Mean Corpuscular Hemoglobin Concent 31.1 G/DL (32.0-36.0) L Red Cell Distribution Width 18.4 % (11.6-14.8) H Platelet Count 495 K/UL (150-450) H Mean Platelet Volume 5.9 FL (6.5-10.1) L Neutrophils (%) (Auto) % (45.0-75.0) Lymphocytes (%) (Auto) % (20.0-45.0) Monocytes (%) (Auto) % (1.0-10.0) Eosinophils (%) (Auto) % (0.0-3.0) Basophils (%) (Auto) % (0.0-2.0) Activated Partial Thromboplast Time 64 SEC (23-33) H 70 SEC (23-33) H Sodium Level 137 MMOL/L (136-145) Potassium Level 3.0 MMOL/L (3.5-5.1) L Chloride Level 100 MMOL/L (98-107) Carbon Dioxide Level 28 MMOL/L (21-32) Anion Gap 9 mmol/L (5-15) Blood Urea Nitrogen 50 mg/dL (7-18) H Creatinine 3.1 MG/DL (0.55-1.30) H Estimat Glomerular Filtration Rate mL/min (>60) Glucose Level 155 MG/DL (74-106) H Hemoglobin A1c 5.3 % (4.3-6.0) Uric Acid 4.9 MG/DL (2.6-7.2) Calcium Level 7.7 MG/DL (8.5-10.1) L Phosphorus Level 3.6 MG/DL (2.5-4.9) Magnesium Level 1.9 MG/DL (1.8-2.4) Iron Level 34 ug/dL (50-175) L Total Iron Binding Capacity 130 ug/dL (250-450) L Percent Iron Saturation 26 % (15-50) Unsaturated Iron Binding 96 ug/dL (112-346) L Ferritin > 2000 NG/ML (8-388) H Total Bilirubin 0.6 MG/DL (0.2-1.0) Gamma Glutamyl Transpeptidase 112 U/L (5-85) H Aspartate Amino Transf (AST/SGOT) 71 U/L (15-37) H Alanine Aminotransferase (ALT/SGPT) 45 U/L (12-78) Alkaline Phosphatase 264 U/L (46-116) H Total Creatine Kinase 65 U/L (26-308) Troponin I 0.090 ng/mL (0.000-0.056) Pro-B-Type Natriuretic Peptide 8109 pg/mL (0-125) H Total Protein 6.5 G/DL (6.4-8.2) Albumin 1.1 G/DL (3.4-5.0) L Globulin 5.4 g/dL Albumin/Globulin Ratio 0.2 (1.0-2.7) L Triglycerides Level 181 MG/DL (30-150) H Cholesterol Level 100 MG/DL (< 200) LDL Cholesterol 58 mg/dL (<100) HDL Cholesterol 18 MG/DL (40-60) L Cholesterol/HDL Ratio 5.6 (3.3-4.4) H Vitamin B12 Level 1400 PG/ML (193-986) H Folate 18.0 NG/ML (8.6-58.9) Thyroid Stimulating Hormone (TSH) 2.931 uiU/mL (0.358-3.740) Cortisol AM Sample Pending Arterial Blood pH 7.430 (7.350-7.450) Arterial Blood Partial Pressure CO2 42.7 mmHg (35.0-45.0) Arterial Blood Partial Pressure O2 64.4 mmHg (75.0-100.0) L Arterial Blood HCO3 27.7 mmol/L (22.0-26.0) H Arterial Blood Oxygen Saturation 91.7 % (92.0-98.0) L Arterial Blood Base Excess 3.1 Jones Test Positive Current Medications Medications (Trade) Dose Ordered Sig/Jaime Route PRN Reason Start Time Stop Time Status Last Admin Dose Admin Acetaminophen (Tylenol) 650 mg Q4H PRN ORAL Fever 07/29/17 14:00 08/28/17 13:59 Albuterol/ Ipratropium (Albuterol/ Ipratropium) 3 ml Q4H PRN HHN Shortness of Breath 07/29/17 14:00 08/03/17 13:59 Aspirin (Ecotrin) 81 mg DAILY ORAL 07/30/17 09:00 08/29/17 08:59 08/01/17 09:07 Daptomycin 350 mg/ Sodium Chloride 55 ml @ 100 mls/hr Q48H IV 07/31/17 15:00 08/07/17 14:59 07/31/17 15:38 Dextrose (Dextrose 50%) STAT PRN IV Hypoglycemia 07/29/17 14:00 08/28/17 13:59 Epoetin Russ (Procrit (for ESRD on dialysis)) 10,000 units MON-MON-MON SUBQ 08/02/17 21:00 09/01/17 20:59 Heparin Sodium/ Dextrose 500 ml @ 37.7 mls/hr adjust per protocol IV 08/01/17 07:30 08/31/17 07:29 08/01/17 07:42 Metoprolol Tartrate (Lopressor) 12.5 mg Q12HR ORAL 07/31/17 21:00 08/30/17 20:59 Ondansetron HCl (Zofran) 4 mg Q6H PRN IVP Nausea & Vomiting 07/29/17 14:00 08/28/17 13:59 Piperacillin Sod/ Tazobactam Sod 2.25 gm/Sodium Chloride 55 ml @ 110 mls/hr Q8H IVPB 07/29/17 16:00 08/05/17 23:59 08/01/17 09:08 Polyethylene Glycol (Miralax) 17 gm DAILYPRN PRN ORAL Constipation 07/29/17 14:00 08/28/17 13:59 Quetiapine Fumarate (SEROquel) 25 mg BEDTIME ORAL 07/29/17 21:00 08/28/17 20:59 Temazepam (Restoril) 15 mg HSPRN PRN ORAL Insomnia 07/29/17 14:00 08/05/17 13:59 Vitamin A/Vitamin D (A & D Oint) 1 applic EVERY 12 HOURS TOPIC 07/31/17 10:00 08/30/17 09:59 08/01/17 09:09 Vitamin B Complex/ Vit C/Folic Acid (Nephrovite) 1 tab DAILY ORAL 07/30/17 12:15 08/29/17 12:14 08/01/17 09:08 Warfarin Sodium (Coumadin per pharmacy) 1 ea DAILY PRN MISC Per rx protocol 07/31/17 20:00 08/30/17 19:59 Warfarin Sodium (Coumadin) 3 mg COUMADIN ONCE ORAL 08/01/17 17:00 08/01/17 17:01 Mahi Marin M.D. Aug 01, 2017 15:30
[2017-08-01 16:00] VITALS: BP 138/75
[2017-08-01] MEDS ORDERED: Meropenem 500 MG in NS 55 ML IVPB SCH (16:30)
[2017-08-01] MEDS ORDERED: Warfarin Sodium 3mg ORAL ONE (17:00)
--- NOTE | 2017-08-01 19:13 | General Progress Note ---
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 BACTERMIA RENAL FAILURE IN NEED OF HEMODIALYSIS Subjective Allergies: Coded Allergies: No Known Allergies (Unverified , 06/18/17) Subjective 08/01/2017 HAD DEVELOPED TACHPNEA WHILE ON MASK SO HE IS BACK ON BIPAP MORE ALERT URINE CX POSITIVE FOR ENTREOBACTER BLOOD CX POSITIVE FOR STAPH [id number] patient has developed decreased mentation and was brought into [facility] he is taking antibiocs and seems more alert Objective Last 24 Hour Vital Signs Date Time Temp Pulse Resp B/P (MAP) Pulse Ox O2 Delivery O2 Flow Rate FiO2 08/01/17 16:25 90 08/01/17 16:00 97.3 92 22 138/75 95 Bi-pap 40 08/01/17 16:00 55 08/01/17 15:47 Simple Mask 10.0 40 08/01/17 14:15 99 20 98 08/01/17 12:00 97.0 87 20 108/54 96 Bi-pap 40 08/01/17 12:00 Simple Mask 10.0 40 08/01/17 12:00 55 08/01/17 11:43 97 08/01/17 11:12 100 20 99 08/01/17 09:29 96 32 96 Facial 40 08/01/17 09:00 102 103/63 08/01/17 08:00 96.9 102 20 103/63 97 Bi-pap 40 08/01/17 08:00 40 08/01/17 08:00 90 08/01/17 07:27 Bi-pap 40 08/01/17 07:27 96 32 96 Facial 40 08/01/17 05:02 104 34 98 Facial 40 08/01/17 04:00 40 08/01/17 04:00 97.5 101 20 123/60 99 Bi-pap 40 08/01/17 04:00 96 08/01/17 03:29 99 33 99 Facial 40 08/01/17 01:10 99 28 98 Facial 40 08/01/17 00:00 40 08/01/17 00:00 103 07/31/17 23:54 97.2 95 16 111/49 99 Bi-pap 40 07/31/17 23:17 101 36 97 Facial 40 07/31/17 21:20 101 29 98 Facial 40 07/31/17 20:23 95 105/49 07/31/17 20:00 40 07/31/17 20:00 99 07/31/17 19:50 97.9 95 22 105/49 99 Bi-pap 40 07/31/17 19:25 99 30 99 Facial 40 07/31/17 19:25 Bi-pap 40 Intake and Output 07/31/17 08/01/17 19:00 07:00 Intake Total 1136.812 ml 884.161 ml Output Total 0 ml 30 ml Balance 1136.812 ml 854.161 ml Free Water 170 ml IV Total 496.812 ml 414.161 ml Tube Feeding 440 ml 320 ml Other 30 ml 150 ml Output Urine Total 0 ml 30 ml Laboratory Tests 07/31/17 22:00: Prothrombin Time 12.5H, Prothromb Time International Ratio 1.2H 08/01/17 04:15: Prothrombin Time 12.7H, Prothromb Time International Ratio 1.2H, White Blood Count 11.4H, Red Blood Count 2.79L, Hemoglobin 7.8L, Hematocrit 25.2L, Mean Corpuscular Volume 90, Mean Corpuscular Hemoglobin 28.2, Mean Corpuscular Hemoglobin Concent 31.1L, Red Cell Distribution Width 18.4H, Platelet Count 495H , Mean Platelet Volume 5.9L, Neutrophils (%) (Auto) , Lymphocytes (%) (Auto) , Monocytes (%) (Auto) , Eosinophils (%) (Auto) , Basophils (%) (Auto) , Activated Partial Thromboplast Time 64H, Sodium Level 137, Potassium Level 3.0L , Chloride Level 100, Carbon Dioxide Level 28, Anion Gap 9, Blood Urea Nitrogen 50H, Creatinine 3.1H, Estimat Glomerular Filtration Rate , Glucose Level 155H, Hemoglobin A1c 5.3, Uric Acid 4.9, Calcium Level 7.7L, Phosphorus Level 3.6, Magnesium Level 1.9, Iron Level 34L, Total Iron Binding Capacity 130L, Percent Iron Saturation 26, Unsaturated Iron Binding 96L, Ferritin > 2000H, Total Bilirubin 0.6, Gamma Glutamyl Transpeptidase 112H, Aspartate Amino Transf (AST/ SGOT) 71H, Alanine Aminotransferase (ALT/SGPT) 45, Alkaline Phosphatase 264H, Total Creatine Kinase 65, Troponin I 0.090H, Pro-B-Type Natriuretic Peptide 8109H, Total Protein 6.5, Albumin 1.1L, Globulin 5.4, Albumin/Globulin Ratio 0.2L, Triglycerides Level 181H, Cholesterol Level 100, LDL Cholesterol 58, HDL Cholesterol 18L, Cholesterol/HDL Ratio 5.6H, Vitamin B12 Level 1400H, Folate 18.0, Thyroid Stimulating Hormone (TSH) 2.931, Cortisol AM Sample [Pending] 08/01/17 09:40: Arterial Blood pH 7.430, Arterial Blood Partial Pressure CO2 42.7, Arterial Blood Partial Pressure O2 64.4L, Arterial Blood HCO3 27.7H, Arterial Blood Oxygen Saturation 91.7L, Arterial Blood Base Excess 3.1, Jones Test Positive 08/01/17 14:20: Activated Partial Thromboplast Time 70H Height (Feet): 6 Weight (Pounds): 160 Cardiovascular: arrhythmia Respiratory/Chest: decreased breath sounds Abdomen: normal bowel sounds, non tender Edema: trace edema Jenise Warren MD Aug 01, 2017 19:13
[2017-08-01 20:00] VITALS: BP 108/59
--- NOTE | 2017-08-01 20:30 | Consultation ---
DATE OF CONSULTATION: 07/31/2017 HEMATOLOGY/ONCOLOGY CONSULTATION CONSULTING PHYSICIAN: Alen Ibarra M.D. REFERRING PHYSICIAN: 1. Oral Wilkins M.D. 2. Samara [facility]City [facility] REASON FOR CONSULTATION: Evaluation of DVT. IDENTIFYING DATA: Dear Dr. Wilkins and Samara Melendez: The patient is a pleasant 82-year-old male with past medical history significant for CVA; end-stage renal disease, on hemodialysis; type 2 diabetes mellitus; recently hospitalized with MRSA bacteremia, at this time underwent replacement of hemodialysis catheter, left ankle ulceration, osteomyelitis, treated with IV antibiotics, who presents today from convalescent home with an elevated PEEP and respiratory rate, placed on BiPAP, noted to have pyuria, admitted for possible pneumonia with sepsis, noted to have elevated troponin. Cardiology Service was consulted. The patient himself cannot give any good history. He is nonverbal. He is on BiPAP. History of acute DVT in the left common femoral vein. Hematology Service was consulted for further evaluation and treatment. PAST MEDICAL HISTORY: As noted above. MEDICATIONS: Seroquel, aspirin, subcutaneous heparin, vancomycin, and Zosyn. Current medications, Epogen heparin drip, vitamin D, Seroquel, albuterol, Zosyn, and Zofran. ALLERGIES: No known drug allergies. SOCIAL HISTORY: Convalescent home resident, dependent on all ADLs. PHYSICAL EXAMINATION: GENERAL: No acute distress. VITAL SIGNS: Reviewed. PULMONARY: Decreased breath sounds. CARDIOVASCULAR: Regular rate. No S3 or S4. ABDOMEN: Soft, nontender, and nondistended. EXTREMITIES: No cyanosis, swelling, or edema. LABORATORY DATA: Labs reviewed. ASSESSMENT AND RECOMMENDATIONS: 1. Acute deep venous thrombosis of the left lower extremity. The patient requires anticoagulation. Hemoglobin has decreased, currently 8.2. Therefore, we will need to closely monitor. The patient is currently on heparin drip to be transitioned to Coumadin. The patient has a deep venous thrombosis, which was again noted in the common superficial, femoral, and popliteal vein in the right leg as well as chronic thrombus in the common superficial, femoral, and popliteal vein. No evidence of acute deep venous thrombosis, . Therefore, the patient has bilateral deep venous thrombosis. 2. Anemia due to chronic disease. 3. 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 Ferritin is above 2000. Does not require any iron. Continue transfusion if hemoglobin less than 7. 4. Coagulopathy due to underlying heparin drip. 5. Coagulopathy due to underlying hepatitis C. 6. Hepatitis C. 7. Possible pneumonia. 8. Congestive heart failure. 9. Possible pulmonary embolism, currently on heparin drip. Consider to start the patient on Coumadin. I appreciate the consultation. Alen Ibarra M.D. DR: DAFNE JOB#: [id number] CC:
--- NOTE | 2017-08-01 23:39 | General Progress Note ---
Assessment/Plan Assessment/Plan 1. Acute deep venous thrombosis of the left lower extremity. --> The patient requires anticoagulation. --> Hemoglobin has decreased, currently 7.8. --> We will need to closely monitor. --> The patient is currently on heparin drip to be transitioned to Coumadin. 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 --> Bilateral DVT noted as well. 2. Anemia due to chronic disease. --> Blood transfusion not required unless symptomatic or hgb <7. --> Hgb currently 7.8 3. 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 --> Ferritin is above 2000. Does not require any iron. --. Continue transfusion if hemoglobin less than 7. 4. Coagulopathy due to underlying heparin drip. 5. Coagulopathy due to underlying hepatitis C. 6. Hepatitis C. 7. Possible pneumonia. 8. Congestive heart failure. 9. Possible pulmonary embolism, currently on heparin drip. --> Consider to start the patient on Coumadin. Subjective Date patient seen: Aug 01, 2017 Constitutional: Denies: no symptoms, chills, diaphoresis, fever, malaise, weakness, other HEENT: Denies: no symptoms, eye pain, blurred vision, tearing, double vision, ear pain, ear discharge, nose pain, nose congestion, throat pain, throat swelling, mouth pain, mouth swelling, other Cardiovascular: Denies: no symptoms, chest pain, edema, irregular heart rate, lightheadedness, palpitations, syncope, other Respiratory: Denies: no symptoms, cough, orthopnea, shortness of breath, SOB with excertion, SOB at rest, sputum, stridor, wheezing, other Gastrointestinal/Abdominal: Denies: no symptoms, abdomen distended, abdominal pain, black stools, tarry stools, blood in stool, constipated, diarrhea, difficulty swallowing, nausea, poor appetite, poor fluid intake, rectal bleeding , vomiting, other Genitourinary: Denies: no symptoms, burning, discharge, frequency, flank pain, hematuria, incontinence, pain, urgency, other Hematologic/Lymphatic: Reports: anemia Allergies: Coded Allergies: No Known Allergies (Unverified , 06/18/17) Subjective On hep drip and abx. No fever. Objective Last 24 Hour Vital Signs Date Time Temp Pulse Resp B/P (MAP) Pulse Ox O2 Delivery O2 Flow Rate FiO2 08/01/17 21:07 97 20 98 08/01/17 20:34 97 108/59 08/01/17 20:00 55 08/01/17 20:00 98.1 97 28 108/59 98 Bi-pap 40 08/01/17 19:30 94 08/01/17 19:29 Venturi Mask 15.0 55 08/01/17 19:27 100 22 99 08/01/17 16:25 90 08/01/17 16:00 97.3 92 22 138/75 95 Bi-pap 40 08/01/17 16:00 55 08/01/17 15:47 Simple Mask 10.0 40 08/01/17 14:15 99 20 98 08/01/17 12:00 97.0 87 20 108/54 96 Bi-pap 40 08/01/17 12:00 Simple Mask 10.0 40 08/01/17 12:00 55 08/01/17 11:43 97 08/01/17 11:12 100 20 99 08/01/17 09:29 96 32 96 Facial 40 08/01/17 09:00 102 103/63 08/01/17 08:00 96.9 102 20 103/63 97 Bi-pap 40 08/01/17 08:00 40 08/01/17 08:00 90 08/01/17 07:27 Bi-pap 40 08/01/17 07:27 96 32 96 Facial 40 08/01/17 05:02 104 34 98 Facial 40 08/01/17 04:00 40 08/01/17 04:00 97.5 101 20 123/60 99 Bi-pap 40 08/01/17 04:00 96 08/01/17 03:29 99 33 99 Facial 40 08/01/17 01:10 99 28 98 Facial 40 08/01/17 00:00 40 08/01/17 00:00 103 07/31/17 23:54 97.2 95 16 111/49 99 Bi-pap 40 Intake and Output 07/31/17 08/01/17 19:00 07:00 Intake Total 1136.812 ml 884.161 ml Output Total 0 ml 30 ml Balance 1136.812 ml 854.161 ml Free Water 170 ml IV Total 496.812 ml 414.161 ml Tube Feeding 440 ml 320 ml Other 30 ml 150 ml Output Urine Total 0 ml 30 ml Laboratory Tests 08/01/17 04:15: White Blood Count 11.4H, Red Blood Count 2.79L, Hemoglobin 7.8L, Hematocrit 25.2L, Mean Corpuscular Volume 90, Mean Corpuscular Hemoglobin 28.2, Mean Corpuscular Hemoglobin Concent 31.1L, Red Cell Distribution Width 18.4H, Platelet Count 495H, Mean Platelet Volume 5.9L, Neutrophils (%) (Auto) , Lymphocytes (%) (Auto) , Monocytes (%) (Auto) , Eosinophils (%) (Auto) , Basophils (%) (Auto) , Prothrombin Time 12.7H, Prothromb Time International Ratio 1.2H, Activated Partial Thromboplast Time 64H, Sodium Level 137, Potassium Level 3.0L, Chloride Level 100, Carbon Dioxide Level 28, Anion Gap 9, Blood Urea Nitrogen 50H, Creatinine 3.1H, Estimat Glomerular Filtration Rate , Glucose Level 155H, Hemoglobin A1c 5.3, Uric Acid 4.9, Calcium Level 7.7L, Phosphorus Level 3.6, Magnesium Level 1.9, Iron Level 34L, Total Iron Binding Capacity 130L, Percent Iron Saturation 26, Unsaturated Iron Binding 96L, Ferritin > 2000H, Total Bilirubin 0.6, Gamma Glutamyl Transpeptidase 112H, Aspartate Amino Transf (AST/SGOT) 71H, Alanine Aminotransferase (ALT/SGPT) 45, Alkaline Phosphatase 264H, Total Creatine Kinase 65, Troponin I 0.090H, Pro-B- Type Natriuretic Peptide 8109H, Total Protein 6.5, Albumin 1.1L, Globulin 5.4, Albumin/Globulin Ratio 0.2L, Triglycerides Level 181H, Cholesterol Level 100, LDL Cholesterol 58, HDL Cholesterol 18L, Cholesterol/HDL Ratio 5.6H, Vitamin B12 Level 1400H, Folate 18.0, Thyroid Stimulating Hormone (TSH) 2.931, Cortisol AM Sample [Pending] 08/01/17 09:40: Arterial Blood pH 7.430, Arterial Blood Partial Pressure CO2 42.7, Arterial Blood Partial Pressure O2 64.4L, Arterial Blood HCO3 27.7H, Arterial Blood Oxygen Saturation 91.7L, Arterial Blood Base Excess 3.1, Jones Test Positive 08/01/17 14:20: Activated Partial Thromboplast Time 70H Height (Feet): 6 Weight (Pounds): 160 General Appearance: confused Neck: supple Respiratory/Chest: decreased breath sounds Abdomen: non tender, soft Edema: trace edema Alen Ibarra Aug 01, 2017 23:39
[2017-08-02] VITALS: BP 99/51
[2017-08-02 04:00] VITALS: BP 115/58
[2017-08-02 05:18] LABS: HEMATOCRIT 23.6 % (42.0-52.0); HEMOGLOBIN 7.4 G/DL (14.2-18.0); MEAN CORPUSCULAR VOLUME 92 FL (80-99); PLATELET COUNT 484 K/UL (150-450); RED BLOOD COUNT 2.58 M/UL (4.70-6.10); RED CELL DISTRIBUTION WIDTH 18.6 % (11.6-14.8); WHITE BLOOD COUNT 10.9 K/UL (4.8-10.8)
[2017-08-02 05:33] LABS: INR 1.2 (0.9-1.1)
[2017-08-02] MEDS: Heparin 25,000u/D5W 500ml 500 ML IV SCH ×2 (05:41→19:29)
[2017-08-02 05:49] LABS: ALANINE AMINOTRANSFERASE 50 U/L (12-78); ALBUMIN 1.1 G/DL (3.4-5.0); ALBUMIN/GLOBULIN RATIO 0.2 (1.0-2.7); ALKALINE PHOSPHATASE 237 U/L (46-116); ANION GAP 9 mmol/L (5-15); ASPARTATE AMINO TRANSFERASE 70 U/L (15-37); BILIRUBIN,TOTAL 0.6 MG/DL (0.2-1.0); BLOOD UREA NITROGEN 44 mg/dL (7-18); CARBON DIOXIDE 26 MMOL/L (21-32); CHLORIDE 101 MMOL/L (98-107); CREATININE 2.7 MG/DL (0.55-1.30); PHOSPHORUS 4.1 MG/DL (2.5-4.9); POTASSIUM 3.8 MMOL/L (3.5-5.1); SODIUM 136 MMOL/L (136-145)
[2017-08-02 08:00] VITALS: BP 103/57
[2017-08-02] MEDS: Nephrovite tab (Rena-Vite) ORAL SCH (08:32)
[2017-08-02] MEDS: Vitamin A&D Oint 2oz Tube TOPIC SCH ×2 (08:32→21:19)
[2017-08-02] MEDS: Aspirin EC 81mg tab ORAL SCH (08:32)
[2017-08-02] MEDS: Metoprolol Tartrate 12.5mg TAB ORAL SCH ×2 (08:58→21:20)
--- NOTE | 2017-08-02 10:15 | General Progress Note ---
Progress Note Progress Note pt doesn't have any family members or DPOA, or guardian. He needs blood transfusion, thoracentesis and other procedures. The is nobody to sign for them. Therefore the physicians are signing them. DAMIAN OGDEN Aug 02, 2017 10:15
--- NOTE | 2017-08-02 10:18 | Pulmonology Progress Note ---
Assessment/Plan Problems: (1) ACS (acute coronary syndrome) (2) Sepsis (3) CHF (congestive heart failure) (4) End-stage renal disease (5) Malnutrition of moderate degree Assessment/Plan Hd iv abx thoracentesis blood transfusion social service cxr reviewed., large amount of pleural effusion. Subjective ROS Limited/Unobtainable: Yes Constitutional: Reports: no symptoms HEENT: Repors: no symptoms Respiratory: Reports: no symptoms Allergies: Coded Allergies: No Known Allergies (Unverified , 06/18/17) Objective Last 24 Hour Vital Signs Date Time Temp Pulse Resp B/P (MAP) Pulse Ox O2 Delivery O2 Flow Rate FiO2 08/02/17 09:42 75 18 98 08/02/17 08:58 95 103/57 08/02/17 08:00 97.5 95 24 103/57 95 Venturi Mask 55 08/02/17 08:00 55 08/02/17 08:00 95 08/02/17 07:15 Venturi Mask 15.0 55 08/02/17 07:15 81 20 98 08/02/17 05:12 84 22 98 08/02/17 04:06 94 08/02/17 04:00 98.3 104 24 115/58 94 Bi-pap 40 08/02/17 04:00 55 08/02/17 02:50 100 24 99 08/02/17 01:19 91 18 99 08/02/17 00:00 97.9 91 24 99/51 100 Bi-pap 40 08/01/17 23:54 86 08/01/17 23:05 102 22 99 08/01/17 21:07 97 20 98 08/01/17 20:34 97 108/59 08/01/17 20:00 55 08/01/17 20:00 98.1 97 28 108/59 98 Bi-pap 40 08/01/17 19:30 94 08/01/17 19:29 Venturi Mask 15.0 55 08/01/17 19:27 100 22 99 08/01/17 16:25 90 08/01/17 16:00 97.3 92 22 138/75 95 Bi-pap 40 08/01/17 16:00 55 08/01/17 15:47 Simple Mask 10.0 40 08/01/17 14:15 99 20 98 08/01/17 12:00 97.0 87 20 108/54 96 Bi-pap 40 08/01/17 12:00 Simple Mask 10.0 40 08/01/17 12:00 55 08/01/17 11:43 97 08/01/17 11:12 100 20 99 Intake and Output 08/01/17 08/02/17 18:59 06:59 Intake Total 1117.0 ml 1008.9 ml Output Total 3000 ml 250 ml Balance -1883.0 ml 758.9 ml Free Water 150 ml 200 ml IV Total 487.0 ml 388.9 ml Tube Feeding 480 ml 360 ml Other 60 ml Output Urine Total 0 ml 250 ml Hemodialysis UF 3000 ml General Appearance: cachetic HEENT: normocephalic, atraumatic Respiratory/Chest: chest wall non-tender, lungs clear Cardiovascular: normal peripheral pulses, normal rate, no JVD Abdomen: normal bowel sounds, no scars Extremities: no cyanosis Skin: no lesions Microbiology Date/Time Source Procedure Growth Status 07/31/17 15:00 Blood Blood Culture - Preliminary NO GROWTH AFTER 24 HOURS Resulted 07/31/17 14:50 Blood Blood Culture - Preliminary NO GROWTH AFTER 24 HOURS Resulted Laboratory Tests 08/01/17 14:20: Activated Partial Thromboplast Time 70H 08/02/17 04:00: Activated Partial Thromboplast Time 88H, White Blood Count 10.9H, Red Blood Count 2.58L, Hemoglobin 7.4L, Hematocrit 23.6L, Mean Corpuscular Volume 92, Mean Corpuscular Hemoglobin 28.9, Mean Corpuscular Hemoglobin Concent 31.6L, Red Cell Distribution Width 18.6H, Platelet Count 484H, Mean Platelet Volume 6.1L, Neutrophils (%) (Auto) , Lymphocytes (%) (Auto) , Monocytes (%) (Auto) , Eosinophils (%) (Auto) , Basophils (%) (Auto) , Differential Total Cells Counted 100, Neutrophils % (Manual) 68, Lymphocytes % (Manual) 26, Monocytes % ( Manual) 3, Eosinophils % (Manual) 3, Basophils % (Manual) 0, Band Neutrophils 0 , Platelet Estimate IncreasedH, Platelet Morphology Normal, Prothrombin Time 12.7H, Prothromb Time International Ratio 1.2H, Sodium Level 136, Potassium Level 3.8, Chloride Level 101, Carbon Dioxide Level 26, Anion Gap 9, Blood Urea Nitrogen 44H, Creatinine 2.7H, Estimat Glomerular Filtration Rate , Glucose Level 152H, Uric Acid 4.0, Calcium Level 8.0L, Phosphorus Level 4.1, Magnesium Level 2.2, Total Bilirubin 0.6, Aspartate Amino Transf (AST/SGOT) 70H, Alanine Aminotransferase (ALT/SGPT) 50, Alkaline Phosphatase 237H, Troponin I 0.084H, C- Reactive Protein, Quantitative 21.6H, Pro-B-Type Natriuretic Peptide 7810H, Total Protein 6.7, Albumin 1.1L, Globulin 5.6, Albumin/Globulin Ratio 0.2L 08/02/17 09:50: Arterial Blood pH 7.392, Arterial Blood Partial Pressure CO2 40.8, Arterial Blood Partial Pressure O2 67.6L, Arterial Blood HCO3 24.3, Arterial Blood Oxygen Saturation 93.5, Arterial Blood Base Excess -0.6, Jones Test Positive Current Medications Medications (Trade) Dose Ordered Sig/Jaime Route PRN Reason Start Time Stop Time Status Last Admin Dose Admin Acetaminophen (Tylenol) 650 mg Q4H PRN ORAL Fever 07/29/17 14:00 08/28/17 13:59 Albuterol/ Ipratropium (Albuterol/ Ipratropium) 3 ml Q4H PRN HHN Shortness of Breath 07/29/17 14:00 08/03/17 13:59 Aspirin (Ecotrin) 81 mg DAILY ORAL 07/30/17 09:00 08/29/17 08:59 08/02/17 08:32 Daptomycin 350 mg/ Sodium Chloride 55 ml @ 100 mls/hr Q48H IV 07/31/17 15:00 08/07/17 14:59 07/31/17 15:38 Dextrose (Dextrose 50%) STAT PRN IV Hypoglycemia 07/29/17 14:00 08/28/17 13:59 Epoetin Russ (Procrit (for ESRD on dialysis)) 10,000 units MON-MON-MON SUBQ 08/02/17 21:00 09/01/17 20:59 Heparin Sodium/ Dextrose 500 ml @ 37.7 mls/hr adjust per protocol IV 08/01/17 07:30 08/31/17 07:29 08/02/17 05:41 Meropenem 500 mg/ Sodium Chloride 55 ml @ 110 mls/hr Q24H IVPB 08/01/17 16:30 08/06/17 16:29 08/01/17 16:50 Metoprolol Tartrate (Lopressor) 12.5 mg Q12HR ORAL 07/31/17 21:00 08/30/17 20:59 08/01/17 20:34 Ondansetron HCl (Zofran) 4 mg Q6H PRN IVP Nausea & Vomiting 07/29/17 14:00 08/28/17 13:59 Polyethylene Glycol (Miralax) 17 gm DAILYPRN PRN ORAL Constipation 07/29/17 14:00 08/28/17 13:59 Quetiapine Fumarate (SEROquel) 25 mg BEDTIME ORAL 07/29/17 21:00 08/28/17 20:59 08/01/17 20:32 Temazepam (Restoril) 15 mg HSPRN PRN ORAL Insomnia 07/29/17 14:00 08/05/17 13:59 Vitamin A/Vitamin D (A & D Oint) 1 applic EVERY 12 HOURS TOPIC 07/31/17 10:00 08/30/17 09:59 08/02/17 08:32 Vitamin B Complex/ Vit C/Folic Acid (Nephrovite) 1 tab DAILY ORAL 07/30/17 12:15 08/29/17 12:14 08/02/17 08:32 Warfarin Sodium (Coumadin per pharmacy) 1 ea DAILY PRN MISC Per rx protocol 07/31/17 20:00 08/30/17 19:59 Warfarin Sodium (Coumadin) 5 mg COUMADIN ONCE ORAL 08/02/17 17:00 08/02/17 17:01 DAMIAN OGDEN Aug 02, 2017 10:18
[2017-08-02 12:00] VITALS: BP 116/66
--- NOTE | 2017-08-02 12:51 | Diagnostic Imaging Report ---
Indication: Dyspnea Technique: One view of the chest Comparison: 08/01/2017 Findings: Bilateral pleural effusions, congestive changes, and hazy parenchymal opacities persist. That on the right may be slightly improved from the previous exam. Dialysis catheter again demonstrated Impression: Possible slight improvement of right-sided pleural effusion. 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
[2017-08-02] MEDS: DAPTOmycin 350 MG in NS 55 ML IV SCH (14:57)
--- NOTE | 2017-08-02 15:04 | Infectious Diseases Prog Note ---
Assessment/Plan Assessment/Plan Assessment: Sepsis, likely 2ry to UTI and MRSA bacteremia- r/o endocarditis -u/a wbc tntc, nit +, leuk +3; ux >100K E. aerognes,?ESBL (S cipro, bactrim Ertapenem), PsA ( S Cipro/levo, Zosyn; I Cefepime) -CXR 08/01:: Increasing right lung opacification, suspect combination of increasing pleural fluid and increasing parenchymal atelectasis -influenza neg Recurrent MRSA bacteremia- ?HD cath infection vs endocarditis (recently HD cath exchange and 4 weeks of Tx) -Bcx 07/29 2 S. aureus (S. ); 07/31 HD cath 1/ +GPC clusters, peripheral NTD -TTE: (limited) no obvious vegetations. Focal aortic valve sclerosis with adequate cusp excursion.Thickened mitral valve leaflets with normal excursion. Mild mitral annulus and aortic root calcification. 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 Will continue to follow along with you. Discussed with RN and DR Wilkins Subjective Allergies: Coded Allergies: No Known Allergies (Unverified , 06/18/17) Subjective afebrile leukocytosis resolving persistent bacteremic Objective Vital Signs Last 24 Hour Vital Signs Date Time Temp Pulse Resp B/P (MAP) Pulse Ox O2 Delivery O2 Flow Rate FiO2 08/02/17 12:00 97.2 96 22 116/66 95 Venturi Mask 55 08/02/17 12:00 55 08/02/17 12:00 98 08/02/17 11:15 75 18 99 08/02/17 09:42 75 18 98 08/02/17 08:58 95 103/57 08/02/17 08:00 97.5 95 24 103/57 95 Venturi Mask 55 08/02/17 08:00 55 08/02/17 08:00 95 08/02/17 07:15 Venturi Mask 15.0 55 08/02/17 07:15 81 20 98 08/02/17 05:12 84 22 98 08/02/17 04:06 94 08/02/17 04:00 98.3 104 24 115/58 94 Bi-pap 40 08/02/17 04:00 55 08/02/17 02:50 100 24 99 08/02/17 01:19 91 18 99 08/02/17 00:00 97.9 91 24 99/51 100 Bi-pap 40 08/01/17 23:54 86 08/01/17 23:05 102 22 99 08/01/17 21:07 97 20 98 08/01/17 20:34 97 108/59 08/01/17 20:00 55 08/01/17 20:00 98.1 97 28 108/59 98 Bi-pap 40 08/01/17 19:30 94 08/01/17 19:29 Venturi Mask 15.0 55 08/01/17 19:27 100 22 99 08/01/17 16:25 90 08/01/17 16:00 97.3 92 22 138/75 95 Bi-pap 40 08/01/17 16:00 55 08/01/17 15:47 Simple Mask 10.0 40 Height (Feet): 6 Weight (Pounds): 160 Objective General Appearance: lethargic - non bverbal on bipap Respiratory/Chest: decreased breath sounds Abdomen: non tender Skin: no rashes/lesions Microbiology Date/Time Source Procedure Growth Status 07/31/17 15:00 Blood Blood Culture - Preliminary NO GROWTH AFTER 24 HOURS Resulted 07/31/17 14:50 Blood Blood Culture - Preliminary Resulted Laboratory Tests Test 08/02/17 04:00 08/02/17 09:50 White Blood Count 10.9 K/UL (4.8-10.8) H Red Blood Count 2.58 M/UL (4.70-6.10) L Hemoglobin 7.4 G/DL (14.2-18.0) L Hematocrit 23.6 % (42.0-52.0) L Mean Corpuscular Volume 92 FL (80-99) Mean Corpuscular Hemoglobin 28.9 PG (27.0-31.0) Mean Corpuscular Hemoglobin Concent 31.6 G/DL (32.0-36.0) L Red Cell Distribution Width 18.6 % (11.6-14.8) H Platelet Count 484 K/UL (150-450) H Mean Platelet Volume 6.1 FL (6.5-10.1) L Neutrophils (%) (Auto) % (45.0-75.0) Lymphocytes (%) (Auto) % (20.0-45.0) Monocytes (%) (Auto) % (1.0-10.0) Eosinophils (%) (Auto) % (0.0-3.0) Basophils (%) (Auto) % (0.0-2.0) Differential Total Cells Counted 100 Neutrophils % (Manual) 68 % (45-75) Lymphocytes % (Manual) 26 % (20-45) Monocytes % (Manual) 3 % (1-10) Eosinophils % (Manual) 3 % (0-3) Basophils % (Manual) 0 % (0-2) Band Neutrophils 0 % (0-8) Platelet Estimate Increased H Platelet Morphology Normal Prothrombin Time 12.7 SEC (9.30-11.50) H Prothromb Time International Ratio 1.2 (0.9-1.1) H Activated Partial Thromboplast Time 88 SEC (23-33) H Sodium Level 136 MMOL/L (136-145) Potassium Level 3.8 MMOL/L (3.5-5.1) Chloride Level 101 MMOL/L (98-107) Carbon Dioxide Level 26 MMOL/L (21-32) Anion Gap 9 mmol/L (5-15) Blood Urea Nitrogen 44 mg/dL (7-18) H Creatinine 2.7 MG/DL (0.55-1.30) H Estimat Glomerular Filtration Rate mL/min (>60) Glucose Level 152 MG/DL (74-106) H Uric Acid 4.0 MG/DL (2.6-7.2) Calcium Level 8.0 MG/DL (8.5-10.1) L Phosphorus Level 4.1 MG/DL (2.5-4.9) Magnesium Level 2.2 MG/DL (1.8-2.4) Total Bilirubin 0.6 MG/DL (0.2-1.0) Aspartate Amino Transf (AST/SGOT) 70 U/L (15-37) H Alanine Aminotransferase (ALT/SGPT) 50 U/L (12-78) Alkaline Phosphatase 237 U/L (46-116) H Troponin I 0.084 ng/mL (0.000-0.056) C-Reactive Protein, Quantitative 21.6 mg/dL (0.00-0.90) H Pro-B-Type Natriuretic Peptide 7810 pg/mL (0-125) H Total Protein 6.7 G/DL (6.4-8.2) Albumin 1.1 G/DL (3.4-5.0) L Globulin 5.6 g/dL Albumin/Globulin Ratio 0.2 (1.0-2.7) L Arterial Blood pH 7.392 (7.350-7.450) Arterial Blood Partial Pressure CO2 40.8 mmHg (35.0-45.0) Arterial Blood Partial Pressure O2 67.6 mmHg (75.0-100.0) L Arterial Blood HCO3 24.3 mmol/L (22.0-26.0) Arterial Blood Oxygen Saturation 93.5 % (92.0-98.0) Arterial Blood Base Excess -0.6 Jones Test Positive Current Medications Medications (Trade) Dose Ordered Sig/Jaime Route PRN Reason Start Time Stop Time Status Last Admin Dose Admin Acetaminophen (Tylenol) 650 mg Q4H PRN ORAL Fever 07/29/17 14:00 08/28/17 13:59 Albuterol/ Ipratropium (Albuterol/ Ipratropium) 3 ml Q4H PRN HHN Shortness of Breath 07/29/17 14:00 08/03/17 13:59 Aspirin (Ecotrin) 81 mg DAILY ORAL 07/30/17 09:00 08/29/17 08:59 08/02/17 08:32 Daptomycin 350 mg/ Sodium Chloride 55 ml @ 100 mls/hr Q48H IV 07/31/17 15:00 08/07/17 14:59 07/31/17 15:38 Dextrose (Dextrose 50%) STAT PRN IV Hypoglycemia 07/29/17 14:00 08/28/17 13:59 Epoetin Russ (Procrit (for ESRD on dialysis)) 10,000 units MON-MON-MON SUBQ 08/02/17 21:00 09/01/17 20:59 Heparin Sodium/ Dextrose 500 ml @ 37.7 mls/hr adjust per protocol IV 08/01/17 07:30 08/31/17 07:29 08/02/17 05:41 Meropenem 500 mg/ Sodium Chloride 55 ml @ 110 mls/hr Q24H IVPB 08/01/17 16:30 08/06/17 16:29 08/01/17 16:50 Metoprolol Tartrate (Lopressor) 12.5 mg Q12HR ORAL 07/31/17 21:00 08/30/17 20:59 08/01/17 20:34 Ondansetron HCl (Zofran) 4 mg Q6H PRN IVP Nausea & Vomiting 07/29/17 14:00 08/28/17 13:59 Polyethylene Glycol (Miralax) 17 gm DAILYPRN PRN ORAL Constipation 07/29/17 14:00 08/28/17 13:59 Quetiapine Fumarate (SEROquel) 25 mg BEDTIME ORAL 07/29/17 21:00 08/28/17 20:59 08/01/17 20:32 Temazepam (Restoril) 15 mg HSPRN PRN ORAL Insomnia 07/29/17 14:00 08/05/17 13:59 Vitamin A/Vitamin D (A & D Oint) 1 applic EVERY 12 HOURS TOPIC 07/31/17 10:00 08/30/17 09:59 08/02/17 08:32 Vitamin B Complex/ Vit C/Folic Acid (Nephrovite) 1 tab DAILY ORAL 07/30/17 12:15 08/29/17 12:14 08/02/17 08:32 Warfarin Sodium (Coumadin per pharmacy) 1 ea DAILY PRN MISC Per rx protocol 07/31/17 20:00 08/30/17 19:59 Warfarin Sodium (Coumadin) 5 mg COUMADIN ONCE ORAL 08/02/17 17:00 08/02/17 17:01 Mahi Marin M.D. Aug 02, 2017 15:04
[2017-08-02 16:00] VITALS: BP 111/77
--- NOTE | 2017-08-02 16:21 | Nephrology Progress Note ---
Assessment/Plan Problem List: (1) End-stage renal disease (2) Acute respiratory failure with hypoxemia (3) CHF (congestive heart failure) (4) Sepsis (5) Anemia Assessment: severe (6) UTI (urinary tract infection) Assessment (1) End-stage renal disease, Has permacath on left chest (2) Malnutrition of moderate degree, sever low albumin of 1.1 (3) Anemia (4) Sepsis (5) UTI (urinary tract infection) (6) Acute respiratory failure with hypoxemia Plan Status: HD 08/01 next 08/03 transfuse ? 2 units pending patient has no family I and Dr Wilkins agree that transfusion is urgently needed Per ID- Monitor lytes- check Am cortisol level- 2D echo- Left ventricular ejection fraction estimated to be 55-60% to extend visualized. per orders Subjective ROS Limited/Unobtainable: Yes Objective Objective Last 24 Hour Vital Signs Date Time Temp Pulse Resp B/P (MAP) Pulse Ox O2 Delivery O2 Flow Rate FiO2 08/02/17 12:00 97.2 96 22 116/66 95 Venturi Mask 55 08/02/17 12:00 55 08/02/17 12:00 98 08/02/17 11:15 75 18 99 08/02/17 09:42 75 18 98 08/02/17 08:58 95 103/57 08/02/17 08:00 97.5 95 24 103/57 95 Venturi Mask 55 08/02/17 08:00 55 08/02/17 08:00 95 08/02/17 07:15 Venturi Mask 15.0 55 08/02/17 07:15 81 20 98 08/02/17 05:12 84 22 98 08/02/17 04:06 94 08/02/17 04:00 98.3 104 24 115/58 94 Bi-pap 40 08/02/17 04:00 55 08/02/17 02:50 100 24 99 08/02/17 01:19 91 18 99 08/02/17 00:00 97.9 91 24 99/51 100 Bi-pap 40 08/01/17 23:54 86 08/01/17 23:05 102 22 99 08/01/17 21:07 97 20 98 08/01/17 20:34 97 108/59 08/01/17 20:00 55 08/01/17 20:00 98.1 97 28 108/59 98 Bi-pap 40 08/01/17 19:30 94 08/01/17 19:29 Venturi Mask 15.0 55 08/01/17 19:27 100 22 99 08/01/17 16:25 90 Intake and Output 08/01/17 08/02/17 19:00 07:00 Intake Total 1117.0 ml 1046.6 ml Output Total 3000 ml 250 ml Balance -1883.0 ml 796.6 ml Free Water 150 ml 200 ml IV Total 487.0 ml 426.6 ml Tube Feeding 480 ml 360 ml Other 60 ml Output Urine Total 0 ml 250 ml Hemodialysis UF 3000 ml Laboratory Tests 08/02/17 04:00: White Blood Count 10.9H, Red Blood Count 2.58L, Hemoglobin 7.4L, Hematocrit 23.6L, Mean Corpuscular Volume 92, Mean Corpuscular Hemoglobin 28.9, Mean Corpuscular Hemoglobin Concent 31.6L, Red Cell Distribution Width 18.6H, Platelet Count 484H, Mean Platelet Volume 6.1L, Neutrophils (%) (Auto) , Lymphocytes (%) (Auto) , Monocytes (%) (Auto) , Eosinophils (%) (Auto) , Basophils (%) (Auto) , Differential Total Cells Counted 100, Neutrophils % ( Manual) 68, Lymphocytes % (Manual) 26, Monocytes % (Manual) 3, Eosinophils % ( Manual) 3, Basophils % (Manual) 0, Band Neutrophils 0, Platelet Estimate IncreasedH, Platelet Morphology Normal, Prothrombin Time 12.7H, Prothromb Time International Ratio 1.2H, Activated Partial Thromboplast Time 88H, Sodium Level 136, Potassium Level 3.8, Chloride Level 101, Carbon Dioxide Level 26, Anion Gap 9, Blood Urea Nitrogen 44H, Creatinine 2.7H, Estimat Glomerular Filtration Rate , Glucose Level 152H, Uric Acid 4.0, Calcium Level 8.0L, Phosphorus Level 4.1, Magnesium Level 2.2, Total Bilirubin 0.6, Aspartate Amino Transf (AST/SGOT ) 70H, Alanine Aminotransferase (ALT/SGPT) 50, Alkaline Phosphatase 237H, Troponin I 0.084H, C-Reactive Protein, Quantitative 21.6H, Pro-B-Type Natriuretic Peptide 7810H, Total Protein 6.7, Albumin 1.1L, Globulin 5.6, Albumin/Globulin Ratio 0.2L 08/02/17 09:50: Arterial Blood pH 7.392, Arterial Blood Partial Pressure CO2 40.8, Arterial Blood Partial Pressure O2 67.6L, Arterial Blood HCO3 24.3, Arterial Blood Oxygen Saturation 93.5, Arterial Blood Base Excess -0.6, Jones Test Positive Height (Feet): 6 Weight (Pounds): 160 General Appearance: mild distress EENT: other - on O2 mask Cardiovascular: normal rate Respiratory/Chest: decreased breath sounds Abdomen: soft Objective others not changed DEXTER BURCIAGA Aug 02, 2017 16:21
[2017-08-02] MEDS ORDERED: Warfarin Sodium 5mg ORAL ONE (17:00)
[2017-08-02] MEDS: Ciprofloxacin 500mg tab ORAL SCH (17:51)
--- NOTE | 2017-08-02 19:58 | Cardiology Progress Note ---
Assessment/Plan Assessment/Plan respiratory distress abnormal trop of unknown sig in settign of renal insuf esrd on hd pyuria. hypokalemic. deep venous thrombosis. possible pneumonia congestive heart failure, cxr reviewed personally on 08/02 echo personally reviewed is tech difficult not all endocardium is visible on 07/31 increased wbc imporved uf as bp allows trop no peak nor sharmaine to be diagnostic of coronary syndrome level min elevated not high enough for diagnosis of mi not a candidate for further cardiac testing uf / dialysis abx is on bb is on Coumadin Subjective ROS Limited/Unobtainable: Yes Objective Last 24 Hour Vital Signs Date Time Temp Pulse Resp B/P (MAP) Pulse Ox O2 Delivery O2 Flow Rate FiO2 08/02/17 16:00 103 08/02/17 16:00 55 08/02/17 16:00 98.8 108 28 111/77 95 Venturi Mask 55 08/02/17 12:00 97.2 96 22 116/66 95 Venturi Mask 55 08/02/17 12:00 55 08/02/17 12:00 98 08/02/17 11:15 75 18 99 08/02/17 09:42 75 18 98 08/02/17 08:58 95 103/57 08/02/17 08:00 97.5 95 24 103/57 95 Venturi Mask 55 08/02/17 08:00 55 08/02/17 08:00 95 08/02/17 07:15 Venturi Mask 15.0 55 08/02/17 07:15 81 20 98 08/02/17 05:12 84 22 98 08/02/17 04:06 94 08/02/17 04:00 98.3 104 24 115/58 94 Bi-pap 40 08/02/17 04:00 55 08/02/17 02:50 100 24 99 08/02/17 01:19 91 18 99 08/02/17 00:00 97.9 91 24 99/51 100 Bi-pap 40 08/01/17 23:54 86 08/01/17 23:05 102 22 99 08/01/17 21:07 97 20 98 08/01/17 20:34 97 108/59 08/01/17 20:00 55 08/01/17 20:00 98.1 97 28 108/59 98 Bi-pap 40 General Appearance: other - awake comfortable Intake and Output 08/01/17 08/02/17 19:00 07:00 Intake Total 1117.0 ml 1046.6 ml Output Total 3000 ml 250 ml Balance -1883.0 ml 796.6 ml Free Water 150 ml 200 ml IV Total 487.0 ml 426.6 ml Tube Feeding 480 ml 360 ml Other 60 ml Output Urine Total 0 ml 250 ml Hemodialysis UF 3000 ml Laboratory Tests Test 08/02/17 04:00 08/02/17 09:50 White Blood Count 10.9 K/UL (4.8-10.8) H Red Blood Count 2.58 M/UL (4.70-6.10) L Hemoglobin 7.4 G/DL (14.2-18.0) L Hematocrit 23.6 % (42.0-52.0) L Mean Corpuscular Volume 92 FL (80-99) Mean Corpuscular Hemoglobin 28.9 PG (27.0-31.0) Mean Corpuscular Hemoglobin Concent 31.6 G/DL (32.0-36.0) L Red Cell Distribution Width 18.6 % (11.6-14.8) H Platelet Count 484 K/UL (150-450) H Mean Platelet Volume 6.1 FL (6.5-10.1) L Neutrophils (%) (Auto) % (45.0-75.0) Lymphocytes (%) (Auto) % (20.0-45.0) Monocytes (%) (Auto) % (1.0-10.0) Eosinophils (%) (Auto) % (0.0-3.0) Basophils (%) (Auto) % (0.0-2.0) Differential Total Cells Counted 100 Neutrophils % (Manual) 68 % (45-75) Lymphocytes % (Manual) 26 % (20-45) Monocytes % (Manual) 3 % (1-10) Eosinophils % (Manual) 3 % (0-3) Basophils % (Manual) 0 % (0-2) Band Neutrophils 0 % (0-8) Platelet Estimate Increased H Platelet Morphology Normal Prothrombin Time 12.7 SEC (9.30-11.50) H Prothromb Time International Ratio 1.2 (0.9-1.1) H Activated Partial Thromboplast Time 88 SEC (23-33) H Sodium Level 136 MMOL/L (136-145) Potassium Level 3.8 MMOL/L (3.5-5.1) Chloride Level 101 MMOL/L (98-107) Carbon Dioxide Level 26 MMOL/L (21-32) Anion Gap 9 mmol/L (5-15) Blood Urea Nitrogen 44 mg/dL (7-18) H Creatinine 2.7 MG/DL (0.55-1.30) H Estimat Glomerular Filtration Rate mL/min (>60) Glucose Level 152 MG/DL (74-106) H Uric Acid 4.0 MG/DL (2.6-7.2) Calcium Level 8.0 MG/DL (8.5-10.1) L Phosphorus Level 4.1 MG/DL (2.5-4.9) Magnesium Level 2.2 MG/DL (1.8-2.4) Total Bilirubin 0.6 MG/DL (0.2-1.0) Aspartate Amino Transf (AST/SGOT) 70 U/L (15-37) H Alanine Aminotransferase (ALT/SGPT) 50 U/L (12-78) Alkaline Phosphatase 237 U/L (46-116) H Troponin I 0.084 ng/mL (0.000-0.056) C-Reactive Protein, Quantitative 21.6 mg/dL (0.00-0.90) H Pro-B-Type Natriuretic Peptide 7810 pg/mL (0-125) H Total Protein 6.7 G/DL (6.4-8.2) Albumin 1.1 G/DL (3.4-5.0) L Globulin 5.6 g/dL Albumin/Globulin Ratio 0.2 (1.0-2.7) L Arterial Blood pH 7.392 (7.350-7.450) Arterial Blood Partial Pressure CO2 40.8 mmHg (35.0-45.0) Arterial Blood Partial Pressure O2 67.6 mmHg (75.0-100.0) L Arterial Blood HCO3 24.3 mmol/L (22.0-26.0) Arterial Blood Oxygen Saturation 93.5 % (92.0-98.0) Arterial Blood Base Excess -0.6 Jones Test Positive Microbiology Date/Time Source Procedure Growth Status 07/31/17 15:00 Blood Blood Culture - Preliminary NO GROWTH AFTER 24 HOURS Resulted 07/31/17 14:50 Blood Blood Culture - Preliminary Resulted YESENIA PEÑA Aug 02, 2017 19:58
[2017-08-02 20:00] VITALS: BP 130/67
[2017-08-02] MEDS ORDERED: Epogen (for ESRD on dialysis) SUBQ SCH (21:00)
--- NOTE | 2017-08-02 23:42 | General Progress Note ---
Assessment/Plan Assessment/Plan #. Acute deep venous thrombosis of the left lower extremity. --> Patient on anticoag measures --> Hemoglobin has decreased, currently 7.8. --> We will need to closely monitor. --> The patient is currently on heparin drip to be transitioned to Coumadin. 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 --> Bilateral DVT noted as well. #. Anemia due to chronic disease. --> Blood transfusion not required unless symptomatic or hgb <7. --> Hgb 7.4, will require blood transfusion if levels cont to drop. #. 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 --> Ferritin is above 2000. Does not require any iron. --> Monitor closely. #. Coagulopathy due to underlying heparin drip. #. Coagulopathy due to underlying hepatitis C. #. Hepatitis C. #. Possible pneumonia. --> On abx, leukocytosis resolved. #. Congestive heart failure. #. Possible pulmonary embolism, currently on heparin drip. --> Consider to start the patient on Coumadin. Subjective Date patient seen: Aug 02, 2017 Constitutional: Denies: no symptoms, chills, diaphoresis, fever, malaise, weakness, other HEENT: Denies: no symptoms, eye pain, blurred vision, tearing, double vision, ear pain, ear discharge, nose pain, nose congestion, throat pain, throat swelling, mouth pain, mouth swelling, other Cardiovascular: Denies: no symptoms, chest pain, edema, irregular heart rate, lightheadedness, palpitations, syncope, other Respiratory: Denies: no symptoms, cough, orthopnea, shortness of breath, SOB with excertion, SOB at rest, sputum, stridor, wheezing, other Gastrointestinal/Abdominal: Denies: no symptoms, abdomen distended, abdominal pain, black stools, tarry stools, blood in stool, constipated, diarrhea, difficulty swallowing, nausea, poor appetite, poor fluid intake, rectal bleeding , vomiting, other Hematologic/Lymphatic: Reports: anemia Allergies: Coded Allergies: No Known Allergies (Unverified , 06/18/17) Subjective Leukocytosis resolved. Hemoglobin low, pending PRBC. Objective Last 24 Hour Vital Signs Date Time Temp Pulse Resp B/P (MAP) Pulse Ox O2 Delivery O2 Flow Rate FiO2 08/02/17 22:54 96 20 98 08/02/17 22:48 Venturi Mask 15.0 55 08/02/17 21:20 115 130/67 08/02/17 21:00 95 20 97 08/02/17 20:00 108 08/02/17 20:00 97.9 115 22 130/67 100 Venturi Mask 55 08/02/17 19:00 95 20 98 08/02/17 16:00 103 08/02/17 16:00 55 08/02/17 16:00 98.8 108 28 111/77 95 Venturi Mask 55 08/02/17 12:00 97.2 96 22 116/66 95 Venturi Mask 55 08/02/17 12:00 55 08/02/17 12:00 98 08/02/17 11:15 75 18 99 08/02/17 09:42 75 18 98 08/02/17 08:58 95 103/57 08/02/17 08:00 97.5 95 24 103/57 95 Venturi Mask 55 08/02/17 08:00 55 08/02/17 08:00 95 08/02/17 07:15 Venturi Mask 15.0 55 08/02/17 07:15 81 20 98 08/02/17 05:12 84 22 98 08/02/17 04:06 94 08/02/17 04:00 98.3 104 24 115/58 94 Bi-pap 40 08/02/17 04:00 55 08/02/17 02:50 100 24 99 08/02/17 01:19 91 18 99 08/02/17 00:00 97.9 91 24 99/51 100 Bi-pap 40 08/01/17 23:54 86 Intake and Output 08/01/17 08/02/17 19:00 07:00 Intake Total 1117.0 ml 1046.6 ml Output Total 3000 ml 250 ml Balance -1883.0 ml 796.6 ml Free Water 150 ml 200 ml IV Total 487.0 ml 426.6 ml Tube Feeding 480 ml 360 ml Other 60 ml Output Urine Total 0 ml 250 ml Hemodialysis UF 3000 ml Laboratory Tests 08/02/17 04:00: White Blood Count 10.9H, Red Blood Count 2.58L, Hemoglobin 7.4L, Hematocrit 23.6L, Mean Corpuscular Volume 92, Mean Corpuscular Hemoglobin 28.9, Mean Corpuscular Hemoglobin Concent 31.6L, Red Cell Distribution Width 18.6H, Platelet Count 484H, Mean Platelet Volume 6.1L, Neutrophils (%) (Auto) , Lymphocytes (%) (Auto) , Monocytes (%) (Auto) , Eosinophils (%) (Auto) , Basophils (%) (Auto) , Differential Total Cells Counted 100, Neutrophils % ( Manual) 68, Lymphocytes % (Manual) 26, Monocytes % (Manual) 3, Eosinophils % ( Manual) 3, Basophils % (Manual) 0, Band Neutrophils 0, Platelet Estimate IncreasedH, Platelet Morphology Normal, Prothrombin Time 12.7H, Prothromb Time International Ratio 1.2H, Activated Partial Thromboplast Time 88H, Sodium Level 136, Potassium Level 3.8, Chloride Level 101, Carbon Dioxide Level 26, Anion Gap 9, Blood Urea Nitrogen 44H, Creatinine 2.7H, Estimat Glomerular Filtration Rate , Glucose Level 152H, Uric Acid 4.0, Calcium Level 8.0L, Phosphorus Level 4.1, Magnesium Level 2.2, Total Bilirubin 0.6, Aspartate Amino Transf (AST/SGOT ) 70H, Alanine Aminotransferase (ALT/SGPT) 50, Alkaline Phosphatase 237H, Troponin I 0.084H, C-Reactive Protein, Quantitative 21.6H, Pro-B-Type Natriuretic Peptide 7810H, Total Protein 6.7, Albumin 1.1L, Globulin 5.6, Albumin/Globulin Ratio 0.2L 08/02/17 09:50: Arterial Blood pH 7.392, Arterial Blood Partial Pressure CO2 40.8, Arterial Blood Partial Pressure O2 67.6L, Arterial Blood HCO3 24.3, Arterial Blood Oxygen Saturation 93.5, Arterial Blood Base Excess -0.6, Jones Test Positive Height (Feet): 6 Weight (Pounds): 160 Alen Ibarra Aug 02, 2017 23:41
[2017-08-03] VITALS: BP 125/63
[2017-08-03 04:00] VITALS: BP 117/60
[2017-08-03 05:50] LABS: BASOPHILS % (AUTO) 0.6 % (0.0-2.0); EOSINOPHILS % (AUTO) 5.3 % (0.0-3.0); HEMATOCRIT 28.8 % (42.0-52.0); HEMOGLOBIN 10.1 G/DL (14.2-18.0); LYMPHOCYTES % (AUTO) 18.7 % (20.0-45.0); MEAN CORPUSCULAR VOLUME 90 FL (80-99); MONOCYTES % (AUTO) 9.2 % (1.0-10.0); NEUTROPHILS % (AUTO) 66.3 % (45.0-75.0); PLATELET COUNT 513 K/UL (150-450); RED CELL DISTRIBUTION WIDTH 16.6 % (11.6-14.8); WHITE BLOOD COUNT 11.4 K/UL (4.8-10.8)
[2017-08-03 06:14] LABS: ALANINE AMINOTRANSFERASE 55 U/L (12-78); ALBUMIN 1.2 G/DL (3.4-5.0); ALBUMIN/GLOBULIN RATIO 0.2 (1.0-2.7); ALKALINE PHOSPHATASE 305 U/L (46-116); ANION GAP 11 mmol/L (5-15); ASPARTATE AMINO TRANSFERASE 86 U/L (15-37); BILIRUBIN,TOTAL 0.6 MG/DL (0.2-1.0); BLOOD UREA NITROGEN 54 mg/dL (7-18); CALCIUM 7.7 MG/DL (8.5-10.1); CARBON DIOXIDE 25 MMOL/L (21-32); CHLORIDE 97 MMOL/L (98-107); CREATININE 3.1 MG/DL (0.55-1.30); PHOSPHORUS 5.3 MG/DL (2.5-4.9); POTASSIUM 4.2 MMOL/L (3.5-5.1); SODIUM 133 MMOL/L (136-145)
[2017-08-03 06:15] LABS: INR 1.3 (0.9-1.1)
[2017-08-03 08:00] VITALS: BP 127/67
[2017-08-03] MEDS: Metoprolol Tartrate 12.5mg TAB ORAL SCH ×2 (08:16→21:01)
[2017-08-03] MEDS: Aspirin EC 81mg tab ORAL SCH (08:16)
[2017-08-03] MEDS: Nephrovite tab (Rena-Vite) ORAL SCH (08:16)
[2017-08-03] MEDS: Vitamin A&D Oint 2oz Tube TOPIC SCH ×2 (08:17→21:00)
[2017-08-03] MEDS: Heparin 25,000u/D5W 500ml 500 ML IV SCH (08:18)
--- NOTE | 2017-08-03 10:40 | Nephrology Progress Note ---
Assessment/Plan Problem List: (1) End-stage renal disease (2) Acute respiratory failure with hypoxemia (3) CHF (congestive heart failure) (4) Sepsis (5) Anemia Assessment: severe (6) UTI (urinary tract infection) Assessment (1) End-stage renal disease, Has permacath on left chest (2) Malnutrition of moderate degree, sever low albumin of 1.1 (3) Anemia (4) Sepsis (5) UTI (urinary tract infection) (6) Acute respiratory failure with hypoxemia Plan Status: HD 08/01 next 08/03 transfuse ? 2 units pending patient has no family I and Dr Wilkins agree that transfusion is urgently needed Per ID- add phos binders Monitor lytes- check Am cortisol level- 2D echo- Left ventricular ejection fraction estimated to be 55-60% to extend visualized. per orders Subjective ROS Limited/Unobtainable: No Constitutional: Reports: malaise Objective Objective Last 24 Hour Vital Signs Date Time Temp Pulse Resp B/P (MAP) Pulse Ox O2 Delivery O2 Flow Rate FiO2 08/03/17 10:07 107 24 Venturi Mask 14.0 55 08/03/17 09:00 107 98 08/03/17 08:16 107 121/69 08/03/17 08:00 98.2 107 20 127/67 100 Venturi Mask 14.0 55 08/03/17 08:00 107 08/03/17 06:38 101 97 08/03/17 06:38 Venturi Mask 15.0 55 08/03/17 06:38 97 Nasal Cannula 15.0 55 08/03/17 05:42 98 22 97 08/03/17 04:12 109 08/03/17 04:00 98.0 98 20 117/60 100 Venturi Mask 14.0 55 08/03/17 03:25 96 18 98 08/03/17 02:03 95 20 98 08/03/17 00:00 99 08/03/17 00:00 98.1 100 24 125/63 100 Venturi Mask 14.0 55 08/02/17 22:54 96 20 98 08/02/17 22:48 Venturi Mask 15.0 55 08/02/17 21:20 115 130/67 08/02/17 21:00 95 20 97 08/02/17 20:00 108 08/02/17 20:00 97.9 115 22 130/67 100 Venturi Mask 55 08/02/17 19:00 95 20 98 08/02/17 16:00 103 08/02/17 16:00 55 08/02/17 16:00 98.8 108 28 111/77 95 Venturi Mask 55 08/02/17 12:00 97.2 96 22 116/66 95 Venturi Mask 55 08/02/17 12:00 55 08/02/17 12:00 98 08/02/17 11:15 75 18 99 Intake and Output 08/02/17 08/03/17 19:00 07:00 Intake Total 1199.7 ml 893.92 ml Output Total 30 ml 50 ml Balance 1169.7 ml 843.92 ml Free Water 250 ml 100 ml IV Total 469.7 ml 433.92 ml Tube Feeding 480 ml 360 ml Output Urine Total 30 ml 50 ml # Bowel Movements 1 2 Laboratory Tests 08/03/17 04:30: White Blood Count 11.4H, Red Blood Count 3.20L, Hemoglobin 10.1#L, Hematocrit 28.8L, Mean Corpuscular Volume 90, Mean Corpuscular Hemoglobin 31.4H, Mean Corpuscular Hemoglobin Concent 35.0, Red Cell Distribution Width 16.6H, Platelet Count 513H, Mean Platelet Volume 6.1L, Neutrophils (%) (Auto) 66.3, Lymphocytes (%) (Auto) 18.7L, Monocytes (%) (Auto) 9.2, Eosinophils (%) (Auto) 5.3H, Basophils (%) (Auto) 0.6, Prothrombin Time 13.7H, Prothromb Time International Ratio 1.3H, Sodium Level 133L, Potassium Level 4.2, Chloride Level 97L, Carbon Dioxide Level 25, Anion Gap 11, Blood Urea Nitrogen 54H, Creatinine 3.1H, Estimat Glomerular Filtration Rate , Glucose Level 141H, Uric Acid 4.4, Calcium Level 7.7L, Phosphorus Level 5.3H, Magnesium Level 2.2, Total Bilirubin 0.6, Aspartate Amino Transf (AST/SGOT) 86H, Alanine Aminotransferase ( ALT/SGPT) 55, Alkaline Phosphatase 305H, C-Reactive Protein, Quantitative 18.5H , Pro-B-Type Natriuretic Peptide 7185H, Total Protein 7.0, Albumin 1.2L, Globulin 5.8, Albumin/Globulin Ratio 0.2L Height (Feet): 6 Weight (Pounds): 175 General Appearance: no apparent distress Cardiovascular: tachycardia Respiratory/Chest: decreased breath sounds Abdomen: soft Objective others not changed DEXTER BURCIAGA Aug 03, 2017 10:40
[2017-08-03 12:00] VITALS: BP 118/65
--- NOTE | 2017-08-03 13:40 | Pulmonology Progress Note ---
Assessment/Plan Problems: (1) ACS (acute coronary syndrome) (2) Sepsis (3) CHF (congestive heart failure) (4) End-stage renal disease (5) Malnutrition of moderate degree Assessment/Plan Hd iv abx thoracentesis blood transfusion social service cxr reviewed., large amount of pleural effusion. change the code to DNR Subjective ROS Limited/Unobtainable: Yes Interval Events: open eyes Allergies: Coded Allergies: No Known Allergies (Unverified , 06/18/17) Objective Last 24 Hour Vital Signs Date Time Temp Pulse Resp B/P (MAP) Pulse Ox O2 Delivery O2 Flow Rate FiO2 08/03/17 11:04 95 08/03/17 10:07 107 24 Venturi Mask 14.0 55 08/03/17 09:00 107 98 08/03/17 08:16 107 121/69 08/03/17 08:00 98.2 107 20 127/67 100 Venturi Mask 14.0 55 08/03/17 08:00 107 08/03/17 06:38 101 97 08/03/17 06:38 Venturi Mask 15.0 55 08/03/17 06:38 97 Nasal Cannula 15.0 55 08/03/17 05:42 98 22 97 08/03/17 04:12 109 08/03/17 04:00 98.0 98 20 117/60 100 Venturi Mask 14.0 55 08/03/17 03:25 96 18 98 08/03/17 02:03 95 20 98 08/03/17 00:00 99 08/03/17 00:00 98.1 100 24 125/63 100 Venturi Mask 14.0 55 08/02/17 22:54 96 20 98 08/02/17 22:48 Venturi Mask 15.0 55 08/02/17 21:20 115 130/67 08/02/17 21:00 95 20 97 08/02/17 20:00 108 08/02/17 20:00 97.9 115 22 130/67 100 Venturi Mask 55 08/02/17 19:00 95 20 98 08/02/17 16:00 103 08/02/17 16:00 55 08/02/17 16:00 98.8 108 28 111/77 95 Venturi Mask 55 Intake and Output 08/02/17 08/03/17 19:00 07:00 Intake Total 1199.7 ml 893.92 ml Output Total 30 ml 50 ml Balance 1169.7 ml 843.92 ml Free Water 250 ml 100 ml IV Total 469.7 ml 433.92 ml Tube Feeding 480 ml 360 ml Output Urine Total 30 ml 50 ml # Bowel Movements 1 2 HEENT: normocephalic Respiratory/Chest: chest wall non-tender, respiratory distress, crackles/rales , rhonchi Cardiovascular: normal peripheral pulses, normal rate Abdomen: soft, non tender Genitourinary: normal external genitalia Neurologic/Psychiatric: title agent II-XII grossly normal Microbiology Date/Time Source Procedure Growth Status 07/31/17 15:00 Blood Blood Culture - Preliminary NO GROWTH AFTER 48 HOURS Resulted 07/31/17 14:50 Blood Blood Culture - Preliminary Resulted Laboratory Tests 08/03/17 04:30: White Blood Count 11.4H, Red Blood Count 3.20L, Hemoglobin 10.1#L, Hematocrit 28.8L, Mean Corpuscular Volume 90, Mean Corpuscular Hemoglobin 31.4H, Mean Corpuscular Hemoglobin Concent 35.0, Red Cell Distribution Width 16.6H, Platelet Count 513H, Mean Platelet Volume 6.1L, Neutrophils (%) (Auto) 66.3, Lymphocytes (%) (Auto) 18.7L, Monocytes (%) (Auto) 9.2, Eosinophils (%) (Auto) 5.3H, Basophils (%) (Auto) 0.6, Prothrombin Time 13.7H, Prothromb Time International Ratio 1.3H, Sodium Level 133L, Potassium Level 4.2, Chloride Level 97L, Carbon Dioxide Level 25, Anion Gap 11, Blood Urea Nitrogen 54H, Creatinine 3.1H, Estimat Glomerular Filtration Rate , Glucose Level 141H, Uric Acid 4.4, Calcium Level 7.7L, Phosphorus Level 5.3H, Magnesium Level 2.2, Total Bilirubin 0.6, Aspartate Amino Transf (AST/SGOT) 86H, Alanine Aminotransferase ( ALT/SGPT) 55, Alkaline Phosphatase 305H, C-Reactive Protein, Quantitative 18.4H , Pro-B-Type Natriuretic Peptide 7185H, Total Protein 7.0, Albumin 1.2L, Globulin 5.8, Albumin/Globulin Ratio 0.2L Current Medications Medications (Trade) Dose Ordered Sig/Jaime Route PRN Reason Start Time Stop Time Status Last Admin Dose Admin Acetaminophen (Tylenol) 650 mg Q4H PRN ORAL Fever 07/29/17 14:00 08/28/17 13:59 Albuterol/ Ipratropium (Albuterol/ Ipratropium) 3 ml Q4H PRN HHN Shortness of Breath 07/29/17 14:00 08/03/17 13:59 Aspirin (Ecotrin) 81 mg DAILY ORAL 07/30/17 09:00 08/29/17 08:59 08/03/17 08:16 Ciprofloxacin (Cipro 500mg tab) 500 mg DAILY@1700 ORAL 08/02/17 17:00 08/09/17 16:59 08/02/17 17:51 Daptomycin 350 mg/ Sodium Chloride 55 ml @ 100 mls/hr Q48H IV 07/31/17 15:00 08/07/17 14:59 08/02/17 14:57 Dextrose (Dextrose 50%) STAT PRN IV Hypoglycemia 07/29/17 14:00 08/28/17 13:59 Epoetin Russ (Procrit (for ESRD on dialysis)) 10,000 units MON-MON-MON SUBQ 08/02/17 21:00 09/01/17 20:59 08/02/17 21:19 Heparin Sodium/ Dextrose 500 ml @ 37.7 mls/hr adjust per protocol IV 08/01/17 07:30 08/31/17 07:29 08/03/17 08:18 Metoprolol Tartrate (Lopressor) 12.5 mg Q12HR ORAL 07/31/17 21:00 08/30/17 20:59 08/03/17 08:16 Ondansetron HCl (Zofran) 4 mg Q6H PRN IVP Nausea & Vomiting 07/29/17 14:00 08/28/17 13:59 Polyethylene Glycol (Miralax) 17 gm DAILYPRN PRN ORAL Constipation 07/29/17 14:00 08/28/17 13:59 Quetiapine Fumarate (SEROquel) 25 mg BEDTIME ORAL 07/29/17 21:00 08/28/17 20:59 08/02/17 21:19 Sevelamer Carbonate (Renvela) 800 mg THREE TIMES A DAY GT 08/03/17 13:00 09/02/17 12:59 Temazepam (Restoril) 15 mg HSPRN PRN ORAL Insomnia 07/29/17 14:00 08/05/17 13:59 Vitamin A/Vitamin D (A & D Oint) 1 applic EVERY 12 HOURS TOPIC 07/31/17 10:00 08/30/17 09:59 08/03/17 08:17 Vitamin B Complex/ Vit C/Folic Acid (Nephrovite) 1 tab DAILY ORAL 07/30/17 12:15 08/29/17 12:14 08/03/17 08:16 Warfarin Sodium (Coumadin per pharmacy) 1 ea DAILY PRN MISC Per rx protocol 07/31/17 20:00 08/30/17 19:59 Warfarin Sodium (Coumadin) 5 mg COUMADIN ONCE ORAL 08/03/17 17:00 08/03/17 17:01 DAMIAN OGDEN Aug 03, 2017 13:40
[2017-08-03] MEDS: Renvela 800mg Pkt GT SCH ×2 (14:41→18:08)
[2017-08-03 16:00] VITALS: BP 122/69
[2017-08-03] MEDS ORDERED: Warfarin Sodium 5mg ORAL ONE (17:00)
[2017-08-03] MEDS: Ciprofloxacin 500mg tab ORAL SCH (18:06)
--- NOTE | 2017-08-03 18:59 | General Progress Note ---
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 BACTEREMIA ON IV ANTIBIOTICS RENAL FAILURE IN NEED OF HEMODIALYSIS Subjective Allergies: Coded Allergies: No Known Allergies (Unverified , 06/18/17) Subjective 08/03/2017 HE IS COMFORTABLE OPENS HIS EYES 08/01/2017 HAD DEVELOPED TACHYPNEA WHILE ON MASK SO HE IS BACK ON BIPAP MORE ALERT URINE CX POSITIVE FOR ENTREOBACTER BLOOD CX POSITIVE FOR STAPH AUREUS patient has developed decreased mentation and was brought into [place] [facility] he is taking antibiocs and seems more alert Objective Last 24 Hour Vital Signs Date Time Temp Pulse Resp B/P (MAP) Pulse Ox O2 Delivery O2 Flow Rate FiO2 08/03/17 16:15 Venturi Mask 55 08/03/17 16:00 98.2 102 20 122/69 99 Venturi Mask 14.0 55 08/03/17 15:48 101 08/03/17 13:15 Venturi Mask 55 08/03/17 12:00 99.0 107 22 118/65 100 Venturi Mask 14.0 55 08/03/17 11:04 95 08/03/17 10:07 107 24 Venturi Mask 14.0 55 08/03/17 09:00 107 98 08/03/17 08:16 107 121/69 08/03/17 08:00 98.2 107 20 127/67 100 Venturi Mask 14.0 55 08/03/17 08:00 107 08/03/17 06:38 101 97 08/03/17 06:38 Venturi Mask 15.0 55 08/03/17 06:38 97 Nasal Cannula 15.0 55 08/03/17 05:42 98 22 97 08/03/17 04:12 109 08/03/17 04:00 98.0 98 20 117/60 100 Venturi Mask 14.0 55 08/03/17 03:25 96 18 98 08/03/17 02:03 95 20 98 08/03/17 00:00 99 08/03/17 00:00 98.1 100 24 125/63 100 Venturi Mask 14.0 55 08/02/17 22:54 96 20 98 08/02/17 22:48 Venturi Mask 15.0 55 08/02/17 21:20 115 130/67 08/02/17 21:00 95 20 97 08/02/17 20:00 108 08/02/17 20:00 97.9 115 22 130/67 100 Venturi Mask 55 08/02/17 19:00 95 20 98 Intake and Output 08/02/17 08/03/17 19:00 07:00 Intake Total 1199.7 ml 893.92 ml Output Total 30 ml 50 ml Balance 1169.7 ml 843.92 ml Free Water 250 ml 100 ml IV Total 469.7 ml 433.92 ml Tube Feeding 480 ml 360 ml Output Urine Total 30 ml 50 ml # Bowel Movements 1 2 Laboratory Tests 08/03/17 04:30: White Blood Count 11.4H, Red Blood Count 3.20L, Hemoglobin 10.1#L, Hematocrit 28.8L, Mean Corpuscular Volume 90, Mean Corpuscular Hemoglobin 31.4H, Mean Corpuscular Hemoglobin Concent 35.0, Red Cell Distribution Width 16.6H, Platelet Count 513H, Mean Platelet Volume 6.1L, Neutrophils (%) (Auto) 66.3, Lymphocytes (%) (Auto) 18.7L, Monocytes (%) (Auto) 9.2, Eosinophils (%) (Auto) 5.3H, Basophils (%) (Auto) 0.6, Prothrombin Time 13.7H, Prothromb Time International Ratio 1.3H, Sodium Level 133L, Potassium Level 4.2, Chloride Level 97L, Carbon Dioxide Level 25, Anion Gap 11, Blood Urea Nitrogen 54H, Creatinine 3.1H, Estimat Glomerular Filtration Rate , Glucose Level 141H, Uric Acid 4.4, Calcium Level 7.7L, Phosphorus Level 5.3H, Magnesium Level 2.2, Total Bilirubin 0.6, Aspartate Amino Transf (AST/SGOT) 86H, Alanine Aminotransferase ( ALT/SGPT) 55, Alkaline Phosphatase 305H, C-Reactive Protein, Quantitative 18.4H , Pro-B-Type Natriuretic Peptide 7185H, Total Protein 7.0, Albumin 1.2L, Globulin 5.8, Albumin/Globulin Ratio 0.2L Height (Feet): 6 Weight (Pounds): 175 Cardiovascular: regular rhythm Respiratory/Chest: decreased breath sounds Abdomen: soft Edema: trace edema Jenise Warren MD Aug 03, 2017 18:59
--- NOTE | 2017-08-03 19:06 | General Progress Note ---
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 BACTEREMIA ON IV ANTIBIOTICS RENAL FAILURE IN NEED OF HEMODIALYSIS SPOKE RO CASE MANAGEMENT PT HAS NO FAMILY WITH [place] FAILURS HER PROGNOSIS IS VERY POOR Subjective Date patient seen: Aug 02, 2017 Time patient seen: 17:52 Allergies: Coded Allergies: No Known Allergies (Unverified , 06/18/17) Subjective 08/02/2017 SPOKE TO CASE MANAGEMENT REGARDING DNAR 08/01/2017 HAD DEVELOPED TACHYPNEA WHILE ON MASK SO HE IS BACK ON BIPAP MORE ALERT URINE CX POSITIVE FOR ENTREOBACTER BLOOD CX POSITIVE FOR STAPH AUREUS patient has developed decreased mentation and was brought into [facility] [facility] ER he is taking antibiocs and seems more alert Objective Last 24 Hour Vital Signs Date Time Temp Pulse Resp B/P (MAP) Pulse Ox O2 Delivery O2 Flow Rate FiO2 08/03/17 16:15 Venturi Mask 55 08/03/17 16:00 98.2 102 20 122/69 99 Venturi Mask 14.0 55 08/03/17 15:48 101 08/03/17 13:15 Venturi Mask 55 08/03/17 12:00 99.0 107 22 118/65 100 Venturi Mask 14.0 55 08/03/17 11:04 95 08/03/17 10:07 107 24 Venturi Mask 14.0 55 08/03/17 09:00 107 98 08/03/17 08:16 107 121/69 08/03/17 08:00 98.2 107 20 127/67 100 Venturi Mask 14.0 55 08/03/17 08:00 107 08/03/17 06:38 101 97 08/03/17 06:38 Venturi Mask 15.0 55 08/03/17 06:38 97 Nasal Cannula 15.0 55 08/03/17 05:42 98 22 97 08/03/17 04:12 109 08/03/17 04:00 98.0 98 20 117/60 100 Venturi Mask 14.0 55 08/03/17 03:25 96 18 98 08/03/17 02:03 95 20 98 08/03/17 00:00 99 08/03/17 00:00 98.1 100 24 125/63 100 Venturi Mask 14.0 55 08/02/17 22:54 96 20 98 08/02/17 22:48 Venturi Mask 15.0 55 08/02/17 21:20 115 130/67 08/02/17 21:00 95 20 97 08/02/17 20:00 108 08/02/17 20:00 97.9 115 22 130/67 100 Venturi Mask 55 Intake and Output 08/02/17 08/03/17 19:00 07:00 Intake Total 1199.7 ml 893.92 ml Output Total 30 ml 50 ml Balance 1169.7 ml 843.92 ml Free Water 250 ml 100 ml IV Total 469.7 ml 433.92 ml Tube Feeding 480 ml 360 ml Output Urine Total 30 ml 50 ml # Bowel Movements 1 2 Laboratory Tests 08/03/17 04:30: White Blood Count 11.4H, Red Blood Count 3.20L, Hemoglobin 10.1#L, Hematocrit 28.8L, Mean Corpuscular Volume 90, Mean Corpuscular Hemoglobin 31.4H, Mean Corpuscular Hemoglobin Concent 35.0, Red Cell Distribution Width 16.6H, Platelet Count 513H, Mean Platelet Volume 6.1L, Neutrophils (%) (Auto) 66.3, Lymphocytes (%) (Auto) 18.7L, Monocytes (%) (Auto) 9.2, Eosinophils (%) (Auto) 5.3H, Basophils (%) (Auto) 0.6, Prothrombin Time 13.7H, Prothromb Time International Ratio 1.3H, Sodium Level 133L, Potassium Level 4.2, Chloride Level 97L, Carbon Dioxide Level 25, Anion Gap 11, Blood Urea Nitrogen 54H, Creatinine 3.1H, Estimat Glomerular Filtration Rate , Glucose Level 141H, Uric Acid 4.4, Calcium Level 7.7L, Phosphorus Level 5.3H, Magnesium Level 2.2, Total Bilirubin 0.6, Aspartate Amino Transf (AST/SGOT) 86H, Alanine Aminotransferase ( ALT/SGPT) 55, Alkaline Phosphatase 305H, C-Reactive Protein, Quantitative 18.4H , Pro-B-Type Natriuretic Peptide 7185H, Total Protein 7.0, Albumin 1.2L, Globulin 5.8, Albumin/Globulin Ratio 0.2L Height (Feet): 6 Weight (Pounds): 175 Jenise Warren MD Aug 03, 2017 19:06
[2017-08-03] MEDS ORDERED: NS 275ml ONE (19:28)
[2017-08-03] MEDS ORDERED: NS 500ML ONE (19:28)
[2017-08-03] MEDS ORDERED: Tubing IV Secondary IV ONE (19:28)
--- NOTE | 2017-08-03 19:31 | Cardiology Progress Note ---
Assessment/Plan Assessment/Plan respiratory distress abnormal trop of unknown sig in settign of renal insuf esrd on hd pyuria. hypokalemic. deep venous thrombosis. possible pneumonia congestive heart failure, bactermia cxr reviewed personally on 08/02 echo personally reviewed is tech difficult not all endocardium is visible on 07/31 now dnr uf as bp allows trop no peak nor sharmaine to be diagnostic of coronary syndrome level min elevated not high enough for diagnosis of mi not a candidate for further cardiac testing uf / dialysis abx is on bb is on Coumadin over all poor prognosis Subjective ROS Limited/Unobtainable: Yes Objective Last 24 Hour Vital Signs Date Time Temp Pulse Resp B/P (MAP) Pulse Ox O2 Delivery O2 Flow Rate FiO2 08/03/17 16:15 Venturi Mask 55 08/03/17 16:00 98.2 102 20 122/69 99 Venturi Mask 14.0 55 08/03/17 15:48 101 08/03/17 13:15 Venturi Mask 55 08/03/17 12:00 99.0 107 22 118/65 100 Venturi Mask 14.0 55 08/03/17 11:04 95 08/03/17 10:07 107 24 Venturi Mask 14.0 55 08/03/17 09:00 107 98 08/03/17 08:16 107 121/69 08/03/17 08:00 98.2 107 20 127/67 100 Venturi Mask 14.0 55 08/03/17 08:00 107 08/03/17 06:38 101 97 08/03/17 06:38 Venturi Mask 15.0 55 08/03/17 06:38 97 Nasal Cannula 15.0 55 08/03/17 05:42 98 22 97 08/03/17 04:12 109 08/03/17 04:00 98.0 98 20 117/60 100 Venturi Mask 14.0 55 08/03/17 03:25 96 18 98 08/03/17 02:03 95 20 98 08/03/17 00:00 99 08/03/17 00:00 98.1 100 24 125/63 100 Venturi Mask 14.0 55 08/02/17 22:54 96 20 98 08/02/17 22:48 Venturi Mask 15.0 55 08/02/17 21:20 115 130/67 08/02/17 21:00 95 20 97 08/02/17 20:00 108 08/02/17 20:00 97.9 115 22 130/67 100 Venturi Mask 55 General Appearance: other - on fm not communicative Cardiovascular: normal rate, tachycardia Respiratory/Chest: rhonchi - bilaterally Abdomen: non tender, soft Extremities: no swelling Intake and Output 08/02/17 08/03/17 19:00 07:00 Intake Total 1199.7 ml 893.92 ml Output Total 30 ml 50 ml Balance 1169.7 ml 843.92 ml Free Water 250 ml 100 ml IV Total 469.7 ml 433.92 ml Tube Feeding 480 ml 360 ml Output Urine Total 30 ml 50 ml # Bowel Movements 1 2 Laboratory Tests Test 08/03/17 04:30 White Blood Count 11.4 K/UL (4.8-10.8) H Red Blood Count 3.20 M/UL (4.70-6.10) L Hemoglobin 10.1 G/DL (14.2-18.0) #L Hematocrit 28.8 % (42.0-52.0) L Mean Corpuscular Volume 90 FL (80-99) Mean Corpuscular Hemoglobin 31.4 PG (27.0-31.0) H Mean Corpuscular Hemoglobin Concent 35.0 G/DL (32.0-36.0) Red Cell Distribution Width 16.6 % (11.6-14.8) H Platelet Count 513 K/UL (150-450) H Mean Platelet Volume 6.1 FL (6.5-10.1) L Neutrophils (%) (Auto) 66.3 % (45.0-75.0) Lymphocytes (%) (Auto) 18.7 % (20.0-45.0) L Monocytes (%) (Auto) 9.2 % (1.0-10.0) Eosinophils (%) (Auto) 5.3 % (0.0-3.0) H Basophils (%) (Auto) 0.6 % (0.0-2.0) Prothrombin Time 13.7 SEC (9.30-11.50) H Prothromb Time International Ratio 1.3 (0.9-1.1) H Sodium Level 133 MMOL/L (136-145) L Potassium Level 4.2 MMOL/L (3.5-5.1) Chloride Level 97 MMOL/L (98-107) L Carbon Dioxide Level 25 MMOL/L (21-32) Anion Gap 11 mmol/L (5-15) Blood Urea Nitrogen 54 mg/dL (7-18) H Creatinine 3.1 MG/DL (0.55-1.30) H Estimat Glomerular Filtration Rate mL/min (>60) Glucose Level 141 MG/DL (74-106) H Uric Acid 4.4 MG/DL (2.6-7.2) Calcium Level 7.7 MG/DL (8.5-10.1) L Phosphorus Level 5.3 MG/DL (2.5-4.9) H Magnesium Level 2.2 MG/DL (1.8-2.4) Total Bilirubin 0.6 MG/DL (0.2-1.0) Aspartate Amino Transf (AST/SGOT) 86 U/L (15-37) H Alanine Aminotransferase (ALT/SGPT) 55 U/L (12-78) Alkaline Phosphatase 305 U/L (46-116) H C-Reactive Protein, Quantitative 18.4 mg/dL (0.00-0.90) H Pro-B-Type Natriuretic Peptide 7185 pg/mL (0-125) H Total Protein 7.0 G/DL (6.4-8.2) Albumin 1.2 G/DL (3.4-5.0) L Globulin 5.8 g/dL Albumin/Globulin Ratio 0.2 (1.0-2.7) L YESENIA PEÑA Aug 03, 2017 19:31
[2017-08-03 20:00] VITALS: BP 133/73
--- NOTE | 2017-08-03 23:34 | General Progress Note ---
Assessment/Plan Assessment/Plan #. Anemia due to chronic disease. --> Blood transfusion not required unless symptomatic or hgb <7. --> S/P PRBC. Hemoglobin now above goal >10 #. 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 --> Ferritin is above 2000. Does not require any iron. --> Monitor closely. #. Acute deep venous thrombosis, bilateral lower extremities --> Patient on anticoagulation measures --> We will need to closely monitor. --> The patient is currently on heparin drip to be transitioned to Coumadin. 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 #. Coagulopathy due to underlying heparin drip. #. Coagulopathy due to underlying hepatitis C. #. Hepatitis C. #. Possible pneumonia. --> On abx, leukocytosis resolved. #. Congestive heart failure. #. Possible pulmonary embolism, currently on heparin drip. --> Consider to start the patient on Coumadin. Subjective Date patient seen: Aug 03, 2017 Constitutional: Denies: no symptoms, chills, diaphoresis, fever, malaise, weakness, other HEENT: Denies: no symptoms, eye pain, blurred vision, tearing, double vision, ear pain, ear discharge, nose pain, nose congestion, throat pain, throat swelling, mouth pain, mouth swelling, other Cardiovascular: Denies: no symptoms, chest pain, edema, irregular heart rate, lightheadedness, palpitations, syncope, other Respiratory: Denies: no symptoms, cough, orthopnea, shortness of breath, SOB with excertion, SOB at rest, sputum, stridor, wheezing, other Gastrointestinal/Abdominal: Denies: no symptoms, abdomen distended, abdominal pain, black stools, tarry stools, blood in stool, constipated, diarrhea, difficulty swallowing, nausea, poor appetite, poor fluid intake, rectal bleeding , vomiting, other Genitourinary: Denies: no symptoms, burning, discharge, frequency, flank pain, hematuria, incontinence, pain, urgency, other Allergies: Coded Allergies: No Known Allergies (Unverified , 06/18/17) Subjective S/P PRBC. No adverse events. No fever. Objective Last 24 Hour Vital Signs Date Time Temp Pulse Resp B/P (MAP) Pulse Ox O2 Delivery O2 Flow Rate FiO2 08/03/17 21:01 120 133/73 08/03/17 20:03 117 08/03/17 20:00 98.0 120 28 133/73 96 Venturi Mask 14.0 55 08/03/17 19:52 95 Venturi Mask 14.0 55 08/03/17 19:52 Venturi Mask 14.0 55 08/03/17 16:15 Venturi Mask 55 08/03/17 16:00 98.2 102 20 122/69 99 Venturi Mask 14.0 55 08/03/17 15:48 101 08/03/17 13:15 Venturi Mask 55 08/03/17 12:00 99.0 107 22 118/65 100 Venturi Mask 14.0 55 08/03/17 11:04 95 08/03/17 10:07 107 24 Venturi Mask 14.0 55 08/03/17 09:00 107 98 08/03/17 08:16 107 121/69 08/03/17 08:00 98.2 107 20 127/67 100 Venturi Mask 14.0 55 08/03/17 08:00 107 08/03/17 06:38 101 97 08/03/17 06:38 Venturi Mask 15.0 55 08/03/17 06:38 97 Nasal Cannula 15.0 55 08/03/17 05:42 98 22 97 08/03/17 04:12 109 08/03/17 04:00 98.0 98 20 117/60 100 Venturi Mask 14.0 55 08/03/17 03:25 96 18 98 08/03/17 02:03 95 20 98 08/03/17 00:00 99 08/03/17 00:00 98.1 100 24 125/63 100 Venturi Mask 14.0 55 Intake and Output 08/02/17 08/03/17 19:00 07:00 Intake Total 1199.7 ml 893.92 ml Output Total 30 ml 50 ml Balance 1169.7 ml 843.92 ml Free Water 250 ml 100 ml IV Total 469.7 ml 433.92 ml Tube Feeding 480 ml 360 ml Output Urine Total 30 ml 50 ml # Bowel Movements 1 2 Laboratory Tests 08/03/17 04:30: White Blood Count 11.4H, Red Blood Count 3.20L, Hemoglobin 10.1#L, Hematocrit 28.8L, Mean Corpuscular Volume 90, Mean Corpuscular Hemoglobin 31.4H, Mean Corpuscular Hemoglobin Concent 35.0, Red Cell Distribution Width 16.6H, Platelet Count 513H, Mean Platelet Volume 6.1L, Neutrophils (%) (Auto) 66.3, Lymphocytes (%) (Auto) 18.7L, Monocytes (%) (Auto) 9.2, Eosinophils (%) (Auto) 5.3H, Basophils (%) (Auto) 0.6, Prothrombin Time 13.7H, Prothromb Time International Ratio 1.3H, Sodium Level 133L, Potassium Level 4.2, Chloride Level 97L, Carbon Dioxide Level 25, Anion Gap 11, Blood Urea Nitrogen 54H, Creatinine 3.1H, Estimat Glomerular Filtration Rate , Glucose Level 141H, Uric Acid 4.4, Calcium Level 7.7L, Phosphorus Level 5.3H, Magnesium Level 2.2, Total Bilirubin 0.6, Aspartate Amino Transf (AST/SGOT) 86H, Alanine Aminotransferase ( ALT/SGPT) 55, Alkaline Phosphatase 305H, C-Reactive Protein, Quantitative 18.4H , Pro-B-Type Natriuretic Peptide 7185H, Total Protein 7.0, Albumin 1.2L, Globulin 5.8, Albumin/Globulin Ratio 0.2L Height (Feet): 6 Weight (Pounds): 175 Alen Ibarra Aug 03, 2017 23:33
[2017-08-04] VITALS: BP 100/50
[2017-08-04 04:00] VITALS: BP 100/51
[2017-08-04 04:50] LABS: BASOPHILS % (AUTO) 0.9 % (0.0-2.0); EOSINOPHILS % (AUTO) 3.4 % (0.0-3.0); HEMATOCRIT 28.1 % (42.0-52.0); HEMOGLOBIN 9.3 G/DL (14.2-18.0); LYMPHOCYTES % (AUTO) 19.1 % (20.0-45.0); MEAN CORPUSCULAR VOLUME 91 FL (80-99); NEUTROPHILS % (AUTO) 63.6 % (45.0-75.0); PLATELET COUNT 503 K/UL (150-450); RED BLOOD COUNT 3.09 M/UL (4.70-6.10); RED CELL DISTRIBUTION WIDTH 17.1 % (11.6-14.8); WHITE BLOOD COUNT 9.4 K/UL (4.8-10.8)
[2017-08-04 04:56] LABS: INR 1.5 (0.9-1.1)
[2017-08-04 05:12] LABS: ALANINE AMINOTRANSFERASE 68 U/L (12-78); ALBUMIN 1.2 G/DL (3.4-5.0); ALBUMIN/GLOBULIN RATIO 0.2 (1.0-2.7); ALKALINE PHOSPHATASE 299 U/L (46-116); ANION GAP 6 mmol/L (5-15); ASPARTATE AMINO TRANSFERASE 129 U/L (15-37); BILIRUBIN,TOTAL 0.6 MG/DL (0.2-1.0); BLOOD UREA NITROGEN 33 mg/dL (7-18); CALCIUM 7.8 MG/DL (8.5-10.1); CARBON DIOXIDE 30 MMOL/L (21-32); CHLORIDE 101 MMOL/L (98-107); CREATININE 2.3 MG/DL (0.55-1.30); PHOSPHORUS 3.8 MG/DL (2.5-4.9); POTASSIUM 3.8 MMOL/L (3.5-5.1); SODIUM 137 MMOL/L (136-145)
[2017-08-04 08:00] VITALS: BP 101/51
[2017-08-04] MEDS: Nephrovite tab (Rena-Vite) ORAL SCH (08:25)
[2017-08-04] MEDS: Renvela 800mg Pkt GT SCH ×2 (08:25→12:18)
[2017-08-04] MEDS: Metoprolol Tartrate 12.5mg TAB ORAL SCH (08:27)
[2017-08-04] MEDS: Vitamin A&D Oint 2oz Tube TOPIC SCH (08:28)
[2017-08-04] MEDS ORDERED: Aspirin Baby 81mg GT SCH (09:00)
--- NOTE | 2017-08-04 10:54 | Pulmonology Progress Note ---
Assessment/Plan Problems: (1) ACS (acute coronary syndrome) (2) Sepsis (3) CHF (congestive heart failure) (4) End-stage renal disease (5) Malnutrition of moderate degree Assessment/Plan Hd iv abx thoracentesis blood transfusion social service cxr reviewed., large amount of pleural effusion. change the code to DNR ethics today to decide about plan of care Subjective ROS Limited/Unobtainable: Yes Constitutional: Reports: no symptoms HEENT: Repors: no symptoms Respiratory: Reports: no symptoms Allergies: Coded Allergies: No Known Allergies (Unverified , 06/18/17) Objective Last 24 Hour Vital Signs Date Time Temp Pulse Resp B/P (MAP) Pulse Ox O2 Delivery O2 Flow Rate FiO2 08/04/17 08:27 106 101/51 08/04/17 08:00 98.7 106 22 101/51 99 Venturi Mask 14.0 55 08/04/17 07:40 104 08/04/17 07:32 98 Venturi Mask 14.0 55 08/04/17 07:32 Venturi Mask 14.0 55 08/04/17 04:00 97.0 105 28 100/51 100 Venturi Mask 14.0 55 08/04/17 03:53 104 08/04/17 00:00 97.9 108 32 100/50 99 Venturi Mask 14.0 55 08/03/17 23:49 108 08/03/17 21:01 120 133/73 08/03/17 20:03 117 08/03/17 20:00 98.0 120 28 133/73 96 Venturi Mask 14.0 55 08/03/17 19:52 95 Venturi Mask 14.0 55 08/03/17 19:52 Venturi Mask 14.0 55 08/03/17 16:15 Venturi Mask 55 08/03/17 16:00 98.2 102 20 122/69 99 Venturi Mask 14.0 55 08/03/17 15:48 101 08/03/17 13:15 Venturi Mask 55 08/03/17 12:00 99.0 107 22 118/65 100 Venturi Mask 14.0 55 08/03/17 11:04 95 Intake and Output 08/03/17 08/04/17 19:00 07:00 Intake Total 630 ml 590 ml Output Total 3275 ml Balance -2645 ml 590 ml Free Water 150 ml 100 ml Tube Feeding 480 ml 440 ml Other 50 ml Output Urine Total 75 ml Hemodialysis UF 3200 ml # Bowel Movements 1 1 General Appearance: cachetic HEENT: normocephalic, atraumatic Respiratory/Chest: chest wall non-tender, lungs clear Cardiovascular: normal peripheral pulses, normal rate, no JVD Abdomen: normal bowel sounds Genitourinary: normal external genitalia Skin: no rash Microbiology Date/Time Source Procedure Growth Status 08/02/17 20:55 Blood Blood Culture - Preliminary NO GROWTH AFTER 24 HOURS Resulted 08/02/17 20:45 Blood Blood Culture - Preliminary NO GROWTH AFTER 24 HOURS Resulted Laboratory Tests 08/04/17 04:15: White Blood Count 9.4, Red Blood Count 3.09L, Hemoglobin 9.3L, Hematocrit 28.1L , Mean Corpuscular Volume 91, Mean Corpuscular Hemoglobin 30.1, Mean Corpuscular Hemoglobin Concent 33.0, Red Cell Distribution Width 17.1H, Platelet Count 503H, Mean Platelet Volume 6.1L, Neutrophils (%) (Auto) 63.6, Lymphocytes (%) (Auto) 19.1L, Monocytes (%) (Auto) 13.0H, Eosinophils (%) (Auto ) 3.4H, Basophils (%) (Auto) 0.9, Prothrombin Time 15.4H, Prothromb Time International Ratio 1.5H, Sodium Level 137, Potassium Level 3.8, Chloride Level 101, Carbon Dioxide Level 30, Anion Gap 6, Blood Urea Nitrogen 33H, Creatinine 2.3H, Estimat Glomerular Filtration Rate , Glucose Level 139H, Calcium Level 7.8L, Phosphorus Level 3.8, Magnesium Level 2.2, Total Bilirubin 0.6, Aspartate Amino Transf (AST/SGOT) 129H, Alanine Aminotransferase (ALT/SGPT) 68, Alkaline Phosphatase 299H, Pro-B-Type Natriuretic Peptide 6855H, Total Protein 6.9, Albumin 1.2L, Globulin 5.7, Albumin/Globulin Ratio 0.2L Current Medications Medications (Trade) Dose Ordered Sig/Jaime Route PRN Reason Start Time Stop Time Status Last Admin Dose Admin Acetaminophen (Tylenol) 650 mg Q4H PRN ORAL Fever 07/29/17 14:00 08/28/17 13:59 Aspirin (ASA) 81 mg DAILY GT 08/04/17 09:00 09/03/17 08:59 08/04/17 08:25 Ciprofloxacin (Cipro 500mg tab) 500 mg DAILY@1700 ORAL 08/02/17 17:00 08/09/17 16:59 08/03/17 18:06 Daptomycin 350 mg/ Sodium Chloride 55 ml @ 100 mls/hr Q48H IV 07/31/17 15:00 08/07/17 14:59 08/02/17 14:57 Dextrose (Dextrose 50%) STAT PRN IV Hypoglycemia 07/29/17 14:00 08/28/17 13:59 Epoetin Russ (Procrit (for ESRD on dialysis)) 10,000 units MON-MON-MON SUBQ 08/02/17 21:00 09/01/17 20:59 08/02/17 21:19 Metoprolol Tartrate (Lopressor) 12.5 mg Q12HR ORAL 07/31/17 21:00 08/30/17 20:59 08/04/17 08:27 Ondansetron HCl (Zofran) 4 mg Q6H PRN IVP Nausea & Vomiting 07/29/17 14:00 08/28/17 13:59 Polyethylene Glycol (Miralax) 17 gm DAILYPRN PRN ORAL Constipation 07/29/17 14:00 08/28/17 13:59 Quetiapine Fumarate (SEROquel) 25 mg BEDTIME ORAL 07/29/17 21:00 08/28/17 20:59 08/03/17 21:00 Sevelamer Carbonate (Renvela) 800 mg THREE TIMES A DAY GT 08/03/17 13:00 09/02/17 12:59 08/04/17 08:25 Temazepam (Restoril) 15 mg HSPRN PRN ORAL Insomnia 07/29/17 14:00 08/05/17 13:59 Vitamin A/Vitamin D (A & D Oint) 1 applic EVERY 12 HOURS TOPIC 07/31/17 10:00 08/30/17 09:59 08/04/17 08:28 Vitamin B Complex/ Vit C/Folic Acid (Nephrovite) 1 tab DAILY ORAL 07/30/17 12:15 08/29/17 12:14 08/04/17 08:25 Warfarin Sodium (Coumadin per pharmacy) 1 ea DAILY PRN MISC Per rx protocol 2/5/18 20:00 08/30/17 19:59 Warfarin Sodium (Coumadin) 5 mg COUMADIN ONCE ORAL 08/04/17 17:00 08/04/17 17:01 DAMIAN OGDEN Aug 04, 2017 10:54
[2017-08-04 11:49] VITALS: BP 126/63
--- NOTE | 2017-08-04 13:03 | General Progress Note ---
Progress Note Progress Note Bioethics Committee Note The Committee met at the request of the attending physician. This 82 year old with dementia and renal and respiratory failure is unrepresented. He was under the auspices of the [facility] [employer] several years ago. At that time they determined that residential placement was approrpiate and then signed off the case. He is now readmitted after a very short interval out of hospital with multiple recurrent medical problems. The consulting physician is of the opinion that further aggressive care would be futile. The Committee is of the opinion that withdrawal of aggressive care and comfort measures would be appropriate at this time. PEG RIOS Aug 04, 2017 13:03
--- NOTE | 2017-08-04 14:15 | Infectious Diseases Prog Note ---
Assessment/Plan Assessment/Plan Assessment: Sepsis, SP MRSA bacteremia - 2DEcho : neg for endocarditis Recurrent MRSA bacteremia- ?HD cath infection vs endocarditis (recently HD cath exchange and 4 weeks of Tx) -Bcx 07/29 2/ S. aureus (S. ); 07/31 HD cath / +GPC clusters, peripheral NTD -TTE: (limited) no obvious vegetations. Focal aortic valve sclerosis with adequate cusp excursion.Thickened mitral valve leaflets with normal excursion. Mild mitral annulus and aortic root calcification. UTI UCx : >100K E. aerognes,?ESBL (S cipro, bactrim Ertapenem), PsA ( S Cipro/ levo, Zosyn; I Cefepime) Pneum -CXR 08/01:: Increasing right lung opacification, suspect combination of increasing pleural fluid and increasing parenchymal atelectasis -influenza neg Low grade fevers Leukocytosis; Acute resp failure on Bipap- possibly due to vol overload; r/o PNA Recent Septic shock 05/2017 2ry to MRSA bacteremia from infected catheter, MRSA and enterobacter PNA, s/p 4 wks Rx -HD catheter replacement 07/12 -Bcx 06/18 09/27 MRSA, 06/19 2/2+; 06/27 neg x4 L ankle ulcer with possible OM, on Rx; end date 08/16 -wound cx VRE (S ampicillin), Taisha albicans -MRI of the left ankle revealed findings suspicious of mild acute osteomyelitisof left ankle lateral malleolus ESRD on HD hep C 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 Plan: -Continue IV Daptomycin 6mg/kg q48hrs abx d# for MRSA bacteremia and to continue tx for OM - PO Cipro d# 3 for Enterobacter and PsA UTI 08/02 Meropenem #2 -08/01 SP Zosyn #4 -07/31 SP IV Vancomycin #3 -07/16 SP IV Vancomycin #28 probable comfort care -will need HD cath removal if possible and line holiday -if Bcx remains positive after line removal will need RAFAEL -Repeat 2 sets of Bcx -Monitor CBC/BMP, temperatures -wound care -aspiration precautions Subjective Constitutional: Denies: no symptoms, fever, chills, fatigue, anorexia, drenching sweats, other Allergies: Coded Allergies: No Known Allergies (Unverified , 06/18/17) Objective Vital Signs Last 24 Hour Vital Signs Date Time Temp Pulse Resp B/P (MAP) Pulse Ox O2 Delivery O2 Flow Rate FiO2 08/04/17 11:51 94 08/04/17 11:49 98.2 96 20 126/63 100 Venturi Mask 14.0 55 08/04/17 08:27 106 101/51 08/04/17 08:00 98.7 106 22 101/51 99 Venturi Mask 14.0 55 08/04/17 07:40 104 08/04/17 07:32 98 Venturi Mask 14.0 55 08/04/17 07:32 Venturi Mask 14.0 55 08/04/17 04:00 97.0 105 28 100/51 100 Venturi Mask 14.0 55 08/04/17 03:53 104 08/04/17 00:00 97.9 108 32 100/50 99 Venturi Mask 14.0 55 08/03/17 23:49 108 08/03/17 21:01 120 133/73 08/03/17 20:03 117 08/03/17 20:00 98.0 120 28 133/73 96 Venturi Mask 14.0 55 08/03/17 19:52 95 Venturi Mask 14.0 55 08/03/17 19:52 Venturi Mask 14.0 55 08/03/17 16:15 Venturi Mask 55 08/03/17 16:00 98.2 102 20 122/69 99 Venturi Mask 14.0 55 08/03/17 15:48 101 Height (Feet): 6 Weight (Pounds): 172 HEENT: anicteric Respiratory/Chest: no respiratory distress Cardiovascular: regularly irregular Abdomen: no organomegaly Microbiology Date/Time Source Procedure Growth Status 08/02/17 20:55 Blood Blood Culture - Preliminary NO GROWTH AFTER 24 HOURS Resulted 08/02/17 20:45 Blood Blood Culture - Preliminary NO GROWTH AFTER 24 HOURS Resulted Laboratory Tests Test 08/04/17 04:15 White Blood Count 9.4 K/UL (4.8-10.8) Red Blood Count 3.09 M/UL (4.70-6.10) L Hemoglobin 9.3 G/DL (14.2-18.0) L Hematocrit 28.1 % (42.0-52.0) L Mean Corpuscular Volume 91 FL (80-99) Mean Corpuscular Hemoglobin 30.1 PG (27.0-31.0) Mean Corpuscular Hemoglobin Concent 33.0 G/DL (32.0-36.0) Red Cell Distribution Width 17.1 % (11.6-14.8) H Platelet Count 503 K/UL (150-450) H Mean Platelet Volume 6.1 FL (6.5-10.1) L Neutrophils (%) (Auto) 63.6 % (45.0-75.0) Lymphocytes (%) (Auto) 19.1 % (20.0-45.0) L Monocytes (%) (Auto) 13.0 % (1.0-10.0) H Eosinophils (%) (Auto) 3.4 % (0.0-3.0) H Basophils (%) (Auto) 0.9 % (0.0-2.0) Prothrombin Time 15.4 SEC (9.30-11.50) H Prothromb Time International Ratio 1.5 (0.9-1.1) H Sodium Level 137 MMOL/L (136-145) Potassium Level 3.8 MMOL/L (3.5-5.1) Chloride Level 101 MMOL/L (98-107) Carbon Dioxide Level 30 MMOL/L (21-32) Anion Gap 6 mmol/L (5-15) Blood Urea Nitrogen 33 mg/dL (7-18) H Creatinine 2.3 MG/DL (0.55-1.30) H Estimat Glomerular Filtration Rate mL/min (>60) Glucose Level 139 MG/DL (74-106) H Calcium Level 7.8 MG/DL (8.5-10.1) L Phosphorus Level 3.8 MG/DL (2.5-4.9) Magnesium Level 2.2 MG/DL (1.8-2.4) Total Bilirubin 0.6 MG/DL (0.2-1.0) Aspartate Amino Transf (AST/SGOT) 129 U/L (15-37) H Alanine Aminotransferase (ALT/SGPT) 68 U/L (12-78) Alkaline Phosphatase 299 U/L (46-116) H Pro-B-Type Natriuretic Peptide 6855 pg/mL (0-125) H Total Protein 6.9 G/DL (6.4-8.2) Albumin 1.2 G/DL (3.4-5.0) L Globulin 5.7 g/dL Albumin/Globulin Ratio 0.2 (1.0-2.7) L Current Medications Medications (Trade) Dose Ordered Sig/Jaime Route PRN Reason Start Time Stop Time Status Last Admin Dose Admin Acetaminophen (Tylenol) 650 mg Q4H PRN ORAL Fever 07/29/17 14:00 08/28/17 13:59 Aspirin (ASA) 81 mg DAILY GT 08/04/17 09:00 09/03/17 08:59 08/04/17 08:25 Ciprofloxacin (Cipro 500mg tab) 500 mg DAILY@1700 ORAL 08/02/17 17:00 08/09/17 16:59 08/03/17 18:06 Daptomycin 350 mg/ Sodium Chloride 55 ml @ 100 mls/hr Q48H IV 07/31/17 15:00 08/07/17 14:59 08/02/17 14:57 Dextrose (Dextrose 50%) STAT PRN IV Hypoglycemia 07/29/17 14:00 08/28/17 13:59 Epoetin Russ (Procrit (for ESRD on dialysis)) 10,000 units MON-MON-MON SUBQ 08/02/17 21:00 09/01/17 20:59 08/02/17 21:19 Metoprolol Tartrate (Lopressor) 12.5 mg Q12HR ORAL 07/31/17 21:00 08/30/17 20:59 08/04/17 08:27 Ondansetron HCl (Zofran) 4 mg Q6H PRN IVP Nausea & Vomiting 07/29/17 14:00 08/28/17 13:59 Polyethylene Glycol (Miralax) 17 gm DAILYPRN PRN ORAL Constipation 07/29/17 14:00 08/28/17 13:59 Quetiapine Fumarate (SEROquel) 25 mg BEDTIME ORAL 07/29/17 21:00 08/28/17 20:59 08/03/17 21:00 Sevelamer Carbonate (Renvela) 800 mg THREE TIMES A DAY GT 08/03/17 13:00 09/02/17 12:59 08/04/17 12:18 Temazepam (Restoril) 15 mg HSPRN PRN ORAL Insomnia 07/29/17 14:00 08/05/17 13:59 Vitamin A/Vitamin D (A & D Oint) 1 applic EVERY 12 HOURS TOPIC 07/31/17 10:00 08/30/17 09:59 08/04/17 08:28 Vitamin B Complex/ Vit C/Folic Acid (Nephrovite) 1 tab DAILY ORAL 07/30/17 12:15 08/29/17 12:14 08/04/17 08:25 Warfarin Sodium (Coumadin per pharmacy) 1 ea DAILY PRN MISC Per rx protocol 07/31/17 20:00 08/30/17 19:59 Warfarin Sodium (Coumadin) 5 mg COUMADIN ONCE ORAL 08/04/17 17:00 08/04/17 17:01 INDY CARRILLO M.D. Aug 04, 2017 14:15
--- NOTE | 2017-08-04 14:59 | Nephrology Progress Note ---
Assessment/Plan Problem List: (1) End-stage renal disease (2) Acute respiratory failure with hypoxemia (3) CHF (congestive heart failure) (4) Sepsis (5) Anemia Assessment: severe (6) UTI (urinary tract infection) Assessment (1) End-stage renal disease, Has permacath on left chest (2) Malnutrition of moderate degree, sever low albumin of 1.1 (3) Anemia (4) Sepsis (5) UTI (urinary tract infection) (6) Acute respiratory failure with hypoxemia Plan Status: HD next 08/05 UNLESS COMFORT CARE AND END OF LIFE CARE IS DECIDED transfused Per ID- add phos binders Monitor lytes- check Am cortisol level- 2D echo- Left ventricular ejection fraction estimated to be 55-60% to extend visualized. per orders Subjective ROS Limited/Unobtainable: Yes Objective Objective Last 24 Hour Vital Signs Date Time Temp Pulse Resp B/P (MAP) Pulse Ox O2 Delivery O2 Flow Rate FiO2 08/04/17 11:51 94 08/04/17 11:49 98.2 96 20 126/63 100 Venturi Mask 14.0 55 08/04/17 08:27 106 101/51 08/04/17 08:00 98.7 106 22 101/51 99 Venturi Mask 14.0 55 08/04/17 07:40 104 08/04/17 07:32 98 Venturi Mask 14.0 55 08/04/17 07:32 Venturi Mask 14.0 55 08/04/17 04:00 97.0 105 28 100/51 100 Venturi Mask 14.0 55 08/04/17 03:53 104 08/04/17 00:00 97.9 108 32 100/50 99 Venturi Mask 14.0 55 08/03/17 23:49 108 08/03/17 21:01 120 133/73 08/03/17 20:03 117 08/03/17 20:00 98.0 120 28 133/73 96 Venturi Mask 14.0 55 08/03/17 19:52 95 Venturi Mask 14.0 55 08/03/17 19:52 Venturi Mask 14.0 55 08/03/17 16:15 Venturi Mask 55 08/03/17 16:00 98.2 102 20 122/69 99 Venturi Mask 14.0 55 08/03/17 15:48 101 Intake and Output 08/03/17 08/04/17 19:00 07:00 Intake Total 630 ml 630 ml Output Total 3275 ml Balance -2645 ml 630 ml Free Water 150 ml 100 ml Tube Feeding 480 ml 480 ml Other 50 ml Output Urine Total 75 ml Hemodialysis UF 3200 ml # Bowel Movements 1 1 Laboratory Tests 08/04/17 04:15: White Blood Count 9.4, Red Blood Count 3.09L, Hemoglobin 9.3L, Hematocrit 28.1L , Mean Corpuscular Volume 91, Mean Corpuscular Hemoglobin 30.1, Mean Corpuscular Hemoglobin Concent 33.0, Red Cell Distribution Width 17.1H, Platelet Count 503H, Mean Platelet Volume 6.1L, Neutrophils (%) (Auto) 63.6, Lymphocytes (%) (Auto) 19.1L, Monocytes (%) (Auto) 13.0H, Eosinophils (%) (Auto ) 3.4H, Basophils (%) (Auto) 0.9, Prothrombin Time 15.4H, Prothromb Time International Ratio 1.5H, Sodium Level 137, Potassium Level 3.8, Chloride Level 101, Carbon Dioxide Level 30, Anion Gap 6, Blood Urea Nitrogen 33H, Creatinine 2.3H, Estimat Glomerular Filtration Rate , Glucose Level 139H, Calcium Level 7.8L, Phosphorus Level 3.8, Magnesium Level 2.2, Total Bilirubin 0.6, Aspartate Amino Transf (AST/SGOT) 129H, Alanine Aminotransferase (ALT/SGPT) 68, Alkaline Phosphatase 299H, Pro-B-Type Natriuretic Peptide 6855H, Total Protein 6.9, Albumin 1.2L, Globulin 5.7, Albumin/Globulin Ratio 0.2L Height (Feet): 6 Weight (Pounds): 172 General Appearance: mild distress Cardiovascular: tachycardia Respiratory/Chest: decreased breath sounds Abdomen: distended Objective others not changed DEXTER BURCIAGA Aug 04, 2017 14:59
[2017-08-04] MEDS: DAPTOmycin 350 MG in NS 55 ML IV SCH (15:28)
[2017-08-04 16:00] VITALS: BP 106/60
[2017-08-04] MEDS ORDERED: Warfarin Sodium 5mg ORAL ONE (17:00)
[2017-08-04] MEDS ORDERED: Morphine Sulfate 4mg/ml Inj IVP PRN (18:30)
[2017-08-04] MEDS ORDERED: Glycopyrrolate 0.2mg/ml 1ml Vial IV PRN (18:30)
[2017-08-04] MEDS ORDERED: PCA Morphine 1mg/ml 30 ML IV PRN ×3 (18:30→20:15)
[2017-08-04] MEDS ORDERED: Rate Change Narcotic Drip MISC PRN ×2 (18:30→20:15)
[2017-08-04 20:00] VITALS: BP 113/63
[2017-08-04] MEDS: Narcotic Shift Volume MISC SCH (20:08)
[2017-08-04] MEDS ORDERED: Narcotic Shift Volume MISC SCH (23:00)
--- NOTE | 2017-08-04 23:47 | General Progress Note ---
Assessment/Plan Assessment/Plan #. Anemia due to chronic disease. --> Blood transfusion not required unless symptomatic or hgb <7. --> S/P PRBC. Hemoglobin now above goal >10 --> Trend cbc daily. #. 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 --> Ferritin is above 2000. Does not require any iron. --> Monitor closely. #. Acute deep venous thrombosis, bilateral lower extremities --> Patient on anticoagulation measures --> We will need to closely monitor. --> The patient is currently on heparin drip to be transitioned to Coumadin. --> INR goal b/t 2 and 3. 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 #. Coagulopathy due to underlying heparin drip. #. Coagulopathy due to underlying hepatitis C. #. Hepatitis C. #. Possible pneumonia. --> On abx, leukocytosis resolved. #. Congestive heart failure. #. Possible pulmonary embolism, currently on heparin drip. --> Consider to start the patient on Coumadin. #. Dementia. Subjective Date patient seen: Aug 04, 2017 Constitutional: Denies: no symptoms, chills, diaphoresis, fever, malaise, weakness, other HEENT: Denies: no symptoms, eye pain, blurred vision, tearing, double vision, ear pain, ear discharge, nose pain, nose congestion, throat pain, throat swelling, mouth pain, mouth swelling, other Cardiovascular: Denies: no symptoms, chest pain, edema, irregular heart rate, lightheadedness, palpitations, syncope, other Respiratory: Denies: no symptoms, cough, orthopnea, shortness of breath, SOB with excertion, SOB at rest, sputum, stridor, wheezing, other Gastrointestinal/Abdominal: Denies: no symptoms, abdomen distended, abdominal pain, black stools, tarry stools, blood in stool, constipated, diarrhea, difficulty swallowing, nausea, poor appetite, poor fluid intake, rectal bleeding , vomiting, other Genitourinary: Denies: no symptoms, burning, discharge, frequency, flank pain, hematuria, incontinence, pain, urgency, other Hematologic/Lymphatic: Reports: anemia Allergies: Coded Allergies: No Known Allergies (Unverified , 06/18/17) Subjective Pt with dementia. No new events. On morphine. Objective Last 24 Hour Vital Signs Date Time Temp Pulse Resp B/P (MAP) Pulse Ox O2 Delivery O2 Flow Rate FiO2 08/04/17 20:00 98.2 115 32 113/63 98 Venturi Mask 14.0 55 08/04/17 20:00 114 08/04/17 19:10 Venturi Mask 14.0 55 08/04/17 19:10 98 Venturi Mask 14.0 55 08/04/17 16:00 98.8 105 24 106/60 98 Venturi Mask 14.0 55 08/04/17 16:00 104 08/04/17 11:51 94 08/04/17 11:49 98.2 96 20 126/63 100 Venturi Mask 14.0 55 08/04/17 08:27 106 101/51 08/04/17 08:00 98.7 106 22 101/51 99 Venturi Mask 14.0 55 08/04/17 07:40 104 08/04/17 07:32 98 Venturi Mask 14.0 55 08/04/17 07:32 Venturi Mask 14.0 55 08/04/17 04:00 97.0 105 28 100/51 100 Venturi Mask 14.0 55 08/04/17 03:53 104 08/04/17 00:00 97.9 108 32 100/50 99 Venturi Mask 14.0 55 08/03/17 23:49 108 Intake and Output 08/03/17 08/04/17 19:00 07:00 Intake Total 630 ml 630 ml Output Total 3275 ml Balance -2645 ml 630 ml Free Water 150 ml 100 ml Tube Feeding 480 ml 480 ml Other 50 ml Output Urine Total 75 ml Hemodialysis UF 3200 ml # Bowel Movements 1 1 Laboratory Tests 08/04/17 04:15: White Blood Count 9.4, Red Blood Count 3.09L, Hemoglobin 9.3L, Hematocrit 28.1L , Mean Corpuscular Volume 91, Mean Corpuscular Hemoglobin 30.1, Mean Corpuscular Hemoglobin Concent 33.0, Red Cell Distribution Width 17.1H, Platelet Count 503H, Mean Platelet Volume 6.1L, Neutrophils (%) (Auto) 63.6, Lymphocytes (%) (Auto) 19.1L, Monocytes (%) (Auto) 13.0H, Eosinophils (%) (Auto ) 3.4H, Basophils (%) (Auto) 0.9, Prothrombin Time 15.4H, Prothromb Time International Ratio 1.5H, Sodium Level 137, Potassium Level 3.8, Chloride Level 101, Carbon Dioxide Level 30, Anion Gap 6, Blood Urea Nitrogen 33H, Creatinine 2.3H, Estimat Glomerular Filtration Rate , Glucose Level 139H, Calcium Level 7.8L, Phosphorus Level 3.8, Magnesium Level 2.2, Total Bilirubin 0.6, Aspartate Amino Transf (AST/SGOT) 129H, Alanine Aminotransferase (ALT/SGPT) 68, Alkaline Phosphatase 299H, Pro-B-Type Natriuretic Peptide 6855H, Total Protein 6.9, Albumin 1.2L, Globulin 5.7, Albumin/Globulin Ratio 0.2L Height (Feet): 6 Weight (Pounds): 172 General Appearance: confused Respiratory/Chest: decreased breath sounds Abdomen: soft Alen Ibarra Aug 04, 2017 23:47
[2017-08-05] VITALS: BP 101/55
[2017-08-05 04:00] VITALS: BP 102/50
[2017-08-05] MEDS: Narcotic Shift Volume MISC SCH ×2 (07:00→08:33)
--- NOTE | 2017-08-05 08:17 | Pulmonology Progress Note ---
Assessment/Plan Problems: (1) Sepsis (2) ACS (acute coronary syndrome) (3) CHF (congestive heart failure) (4) End-stage renal disease (5) Malnutrition of moderate degree (6) Advanced dementia (7) Feeding by G-tube Assessment/Plan agree with recommendations of ethics pt is comfortable now, on morphine drip all consultants agreed [facility] comfort care med/surg hold feeding b/o high risk of aspiration Subjective ROS Limited/Unobtainable: Yes Interval Events: comfortable Allergies: Coded Allergies: No Known Allergies (Unverified , 06/18/17) Objective Last 24 Hour Vital Signs Date Time Temp Pulse Resp B/P (MAP) Pulse Ox O2 Delivery O2 Flow Rate FiO2 08/05/17 07:33 Venturi Mask 14.0 55 08/05/17 07:31 90 Venturi Mask 14.0 55 08/05/17 07:12 17 08/05/17 04:00 104 08/05/17 04:00 98.0 101 16 102/50 95 Venturi Mask 14.0 55 08/05/17 03:32 98.0 08/05/17 03:12 17 08/05/17 03:00 16 08/05/17 02:00 20 08/05/17 00:00 107 08/05/17 00:00 97.9 102 32 101/55 98 Venturi Mask 14.0 55 08/04/17 22:00 24 08/04/17 21:30 28 08/04/17 21:00 28 08/04/17 20:45 30 08/04/17 20:34 98.8 08/04/17 20:30 32 08/04/17 20:15 32 08/04/17 20:00 98.2 115 32 113/63 98 Venturi Mask 14.0 55 08/04/17 20:00 114 08/04/17 20:00 32 08/04/17 19:10 Venturi Mask 14.0 55 08/04/17 19:10 98 Venturi Mask 14.0 55 08/04/17 16:00 98.8 105 24 106/60 98 Venturi Mask 14.0 55 08/04/17 16:00 104 08/04/17 11:51 94 08/04/17 11:49 98.2 96 20 126/63 100 Venturi Mask 14.0 55 08/04/17 08:27 106 101/51 Intake and Output 08/04/17 08/05/17 19:00 07:00 Intake Total 790 ml 44 ml Balance 790 ml 44 ml Free Water 250 ml IV Total 100 ml 44 ml Tube Feeding 440 ml # Voids 40 # Bowel Movements 2 General Appearance: cachetic HEENT: normocephalic, atraumatic Respiratory/Chest: chest wall non-tender, lungs clear Cardiovascular: normal peripheral pulses, regular rhythm Abdomen: soft, non tender Genitourinary: normal external genitalia Extremities: no clubbing Skin: no lesions Microbiology Date/Time Source Procedure Growth Status 08/02/17 20:55 Blood Blood Culture - Preliminary NO GROWTH AFTER 48 HOURS Resulted 08/02/17 20:45 Blood Blood Culture - Preliminary NO GROWTH AFTER 48 HOURS Resulted Current Medications Medications (Trade) Dose Ordered Sig/Jaime Route PRN Reason Start Time Stop Time Status Last Admin Dose Admin Acetaminophen (Tylenol) 650 mg Q4H PRN ORAL Fever 07/29/17 14:00 08/28/17 13:59 Dextrose (Dextrose 50%) STAT PRN IV Hypoglycemia 07/29/17 14:00 08/28/17 13:59 Glycopyrrolate (Robinul) 0.1 mg Q6H PRN IV excessive secretions 08/04/17 18:30 09/03/17 18:29 Miscellaneous Medication (Narcotic Drip Rate Change) 1 ea DAILY PRN MISC COMFORT CARE 08/04/17 20:15 09/03/17 20:14 Miscellaneous Medication (Narcotic Shift Volume) 1 ea Q12H MISC 08/04/17 19:00 09/03/17 18:59 08/05/17 07:00 Morphine Sulfate 30 ml @ 4 mls/hr FISH BUTCHER Protocol PRN IV FOR COMFORT CARE 08/04/17 20:15 08/06/17 20:14 08/05/17 03:02 Ondansetron HCl (Zofran) 4 mg Q6H PRN IVP Nausea & Vomiting 07/29/17 14:00 08/28/17 13:59 Polyethylene Glycol (Miralax) 17 gm DAILYPRN PRN ORAL Constipation 07/29/17 14:00 08/28/17 13:59 Quetiapine Fumarate (SEROquel) 25 mg BEDTIME ORAL 07/29/17 21:00 08/28/17 20:59 08/04/17 22:16 Temazepam (Restoril) 15 mg HSPRN PRN ORAL Insomnia 07/29/17 14:00 08/05/17 13:59 DAMIAN OGDEN Aug 05, 2017 08:17
[2017-08-05 08:45] VITALS: BP 110/56
[2017-08-05] MEDS ORDERED: Rate Change Narcotic Drip MISC PRN (09:00)
[2017-08-05 09:01] VITALS: BP 110/56
[2017-08-05] MEDS ORDERED: Glycopyrrolate 0.2mg/ml 1ml Vial IV PRN (10:00)
[2017-08-05] MEDS ORDERED: Miralax 17gm pkt ORAL PRN (10:00)
[2017-08-05] MEDS ORDERED: PCA Morphine 1mg/ml 30 ML IV PRN (10:00)
[2017-08-05] MEDS ORDERED: NS 275ml ONE (10:59)
[2017-08-05] MEDS ORDERED: Tubing Blood Filter IV ONE (10:59)
[2017-08-05] MEDS ORDERED: Tubing IV Secondary IV ONE (10:59)
[2017-08-05] MEDS ORDERED: Narcotic Shift Volume MISC SCH (19:00)
--- NOTE | 2017-08-08 11:18 | Discharge Summary ---
Discharge Summary Hospital Course Date of Admission Jul 29, 2017 at 08:27 Date of Discharge Aug 05, 2017 at 11:00 Admitting Diagnosis Renal Failure, UTI, Sepsis HPI Jordan GarberJr is a 82 year old male who was admitted on Jul 29, 2017 at 08:27 for Renal Failure,Urinary Tract Infection,Sepsis Hospital Course summary #[id number] Discharge Discharge Disposition Patient Discharge Diagnoses: [facility]Samara NP Aug 08, 2017 11:18
--- NOTE | 2017-08-09 00:30 | Discharge Summary 2 SIG ---
SUMMARY DATE OF ADMISSION: 07/29/2017 DATE OF EXPIRATION: 08/05/2017 REASON FOR ADMISSION: 82-year-old male with past medical history of end-stage renal disease, on hemodialysis, hepatitis C, diabetes mellitus type 2, CVA with right hemiparesis, SNF resident, was sent from the [facility] for evaluation due to respiratory distress. The patient was found to be tachycardic, tachypneic, hypotensive with low-grade fever. Upon presentation, he was on 100% nonrebreathing mask. Subsequently, in ED, he was placed on the BiPAP. The patient had a recent admission for septic shock secondary to MRSA bacteremia from infected hemodialysis catheter, status post removal and treatment with IV vancomycin, MRSA Enterobacter pneumonia, left ankle ulcer with osteomyelitis. The patient at that time was discharged on oral fluconazole and Augmentin to complete the course. Hemodialysis catheter was replaced on 07/12/2017. In emergency department, WBC -16.4. Troponin was elevated -0.093, and the next was 0.109. Chest x-ray showed bilateral pleural effusion and interstitial edema. Hemoglobin -9.1, hematocrit- 29.1. The patient was pancultured, started on antibiotics and admitted to [facility] for further management. ADMITTING DIAGNOSES: 1. Sepsis. 2. Acute hypoxemic respiratory failure, requiring BiPAP. 3. Hypertension. 4. Urinary tract infection. 5. Recent history of catheter-associated Methicillin-resistant Staphylococcus aureus bacteremia and sepsis. 6. Osteomyelitis. 7. Elevated troponin. 8. End-stage renal disease, on hemodialysis. 9. Anemia of chronic disease. 10. Dysphagia, gastrostomy tube. 11. Left ankle ulcer with a recent diagnosis of osteomyelitis. 12. Diabetes. 13. CVA with right hemiparesis. 14. Hepatitis C. HOSPITAL COURSE: The patient was admitted. ID, Nephrology, Hematology and Cardiology consults were requested. The patient was started on the BiPAP and settings were titrated to keep pulse oximetry above 92%. The patient was started on the empiric antibiotics. ID closely followed. Blood pressure was closely monitored. Serial troponin were done. Levels were flat. According to Cardiology, insignificant mild troponin elevation likely secondary to end-stage renal disease. Echocardiogram revealed preserved ejection fraction of 55% to 60%. Hemodialysis was arranged as per Nephrology. Renal parameters and electrolytes were closely monitored. Electrolytes were corrected as needed. The patient was on strict aspiration precautions. G-tube feeding was started. Tube feeding tolerance was monitored. Dietary evaluation was requested for help with nutritional support. Hemoglobin and hematocrit were closely monitored. Anemia was secondary to chronic disease, likely to end-stage renal disease. The patient has undergone transfusion of 2 units of packed red blood cells. Supervisor Functional Testing followed. Blood sugar was managed with sliding scale of insulin. ABG was stable on BiPAP initially. No acidosis. No hypercapnia. Attempt was done to wean patient to venturi mask. Followup chest x-ray showed large left pleural effusion. The patient started on chest physical therapy along with handheld nebulizing treatment around the clock for 48 hours. The left side of the chest was elevated to allow drainage. The patient was followed up with chest x-ray. Thoracentesis was planned, if not resolution with conservative measures. At the [facility] the patient had a venous Duplex done, and report revealed acute thrombus in the left lower extremity. The patient was started on a heparin drip. Subsequently, venous Duplex was ordered at the hospital, which revealed chronic thrombus of bilateral lower extremities, but no evidence of acute DVT. Heparin was stopped, and the patient was started on the Coumadin. INR was closely monitored. Supervisor Functional Testing followed. Per egg pasteurizer, echo was personally reviewed. Minimal elevation of troponin was not diagnostic of coronary syndrome. Levels were minimally elevated, not high enough for diagnosis of [place]. The patient was not a candidate for further cardiac testing. Dialysis was done with ultrafiltration. The patient was on beta-lory and Coumadin. Overall prognosis was poor. Blood culture revealed MRSA. Urine culture revealed Enterobacter and Pseudomonas aeruginosa. Influenza screen test was negative. The patient was on antibiotics as directed by ID. Repeated blood culture revealed Staph coag-negative, Staph hominis. Echocardiogram revealed no evidence of vegetation. According to ID, the patient had recurrent MRSA bacteremia and recently changed hemodialysis catheter after four weeks of antibiotics. He recommended, if surveillance blood culture come back positive, to consider transesophageal echo and replace hemodialysis catheter. Surveillance blood culture on 08/02/2017 came back negative. The patient was able to be weaned from BiPAP to Venturi mask, however he did not show improvement. Initial followup x-ray after chest physical therapy and elevation of left side demonstrated improved aeration of the left lung, however followup chest x-ray showed increasing right lung opacification and persistent left lung opacity. Bioethics committee recommendations were requested regarding further management of this patient, since the patient had no family. Bioethics committee meeting was held on 08/04/2017. According to bioethics committee, the patient with multiple recurrent medical problems. The patient with dementia, end stage renal failure, respiratory failure. He had a public guardian in the past, but after placement to long-term, he signed off the case. At this time, the consulting physician was in the opinion that further aggressive care would be futile. The committee reached the opinion that withdrawal of aggressive care and comfort measures would be appropriate for this patient at this time. Subsequently code status was changed to DNR/DNI status. All consultants agreed with comfort care. The patient was transitioned to oxygen via nasal cannula. The patient was transferred to Med/Surg floor. The patient was started on morphine drip for comfort ; G-tube feeding was hold due to risk of aspiration. On 08/05/2017 at 9:10, the patient was pronounced. CAUSE OF : Cardiopulmonary arrest. FINAL DIAGNOSES: 1. Acute hypoxemic respiratory failure, requiring BiPAP. 2. Sepsis with recurrent Methicillin-resistant Staphylococcus aureus bacteremia. 3. Pseudomonas, Enterobacter urinary tract infection. 4. Elevated troponin, liejly due to end stage renal disease 5. Large left pleural effusion. 6. Chronic DVT, bilateral lower extremities. 7. Recent history of catheter-associated bacteremia and sepsis. 8. Osteomyelitis, left ankle. 9. End-stage renal disease, on hemodialysis. 10. Anemia of end-stage renal disease, status post blood transfusion. 11. Dysphagia, gastrostomy tube. 12. Diabetes mellitus. 13. Cerebrovascular accident with right hemiparesis. 14. Hepatitis C. 15. Advanced dementia. 16. Malnutrition. 17. Congestive heart failure 18. Comfort care Oral Wilkins M.D. [facility]: Gabriela JOB#: [id number] CC: AURELIO
== END 2017-08-05 11:00 | disposition expired | DRG 720 ==
LOC: EDUNIT# 04:24 → EDBD 04:24 → EMR 04:58 → 2W 08:27 → EDBEDREQ 08:29 → 2W 11:00 → EMR 11:00 → 4E 08-05 08:20
PROC: 5A1D70Z Performance of Urinary Filtration, Intermittent, Less than 6 Hours Per Day (ICD-10-PCS; principal; 2017-07-29)
DX: A41.02 Sepsis due to Methicillin resistant Staphylococcus aureus (principal); J90 Pleural effusion, not elsewhere classified; L89.524 Pressure ulcer of left ankle, stage 4; E44.0 Moderate protein-calorie malnutrition; J96.00 Acute respiratory failure, unspecified whether with hypoxia or hypercapnia; N18.6 End stage renal disease; J96.01 Acute respiratory failure with hypoxia; D68.9 Coagulation defect, unspecified; I95.9 Hypotension, unspecified; I24.8 Other forms of acute ischemic heart disease; F03.90 Unspecified dementia, unspecified severity, without behavioral disturbance, psychotic disturbance, mood disturbance, and anxiety; I50.9 Heart failure, unspecified; E87.70 Fluid overload, unspecified; E11.69 Type 2 diabetes mellitus with other specified complication; M86.172 Other acute osteomyelitis, left ankle and foot; I69.954 Hemiplegia and hemiparesis following unspecified cerebrovascular disease affecting left non-dominant side; N39.0 Urinary tract infection, site not specified; Z99.2 Dependence on renal dialysis; Z86.73 Personal history of transient ischemic attack (TIA), and cerebral infarction without residual deficits; Z68.23 Body mass index [BMI] 23.0-23.9, adult; E87.6 Hypokalemia; B19.20 Unspecified viral hepatitis C without hepatic coma; I69.959 Hemiplegia and hemiparesis following unspecified cerebrovascular disease affecting unspecified side; R13.10 Dysphagia, unspecified; Z93.1 Gastrostomy status; D63.1 Anemia in chronic kidney disease; Z66 Do not resuscitate
CPT/HCPCS: 36415; 36600; 51702; 71045; 80048; 80053; 80061; 80202; 81003; 82533; 82550; 82553; 82607; 82728; 82746; 82803; 82962; 82977; 83036; 83540; 83550; 83735; 83880; 84100; 84443; 84484; 84550; 85007; 85025; 85610; 85730; 86140; 86710; 86850; 86900; 86901; 86920; 87040; 87081; 87086; 87181; 93005; 93306; 93970; 94664; 94760; J8499